=== PATIENT | female | born 1955 | race Caucasian/White ===

== ENCOUNTER 2024-09-12 14:03 | Emergency (ER) | payer MEDICARE, SELFPAY ==
[2024-09-12 14:03] VITALS: BP 194/90; PULSE 68; RESP 20; TEMP 36.4; O2SAT 99; BMI 25.8
[2024-09-12 14:05] VITALS: BP 144/51; PULSE 64; RESP 18; TEMP 36.6; O2SAT 97
--- NOTE | 2024-09-12 14:05 | EKG12_ITS ---
Test Reason : SOB/CP Blood Pressure : */* mmHG Vent. Rate : 64 BPM Atrial Rate : 64 BPM P-R Int : 132 ms QRS Dur : 64 ms QT Int : 394 ms P-R-T Axes : 92 10 48 degrees QTcB Int : 406 ms Normal sinus rhythm Normal ECG Confirmed by [place] MCGARRY, JOSE JUAN ([id number]), technical writer and editor TIFFANY BRAN ([id number]) on 09/13/2024 9:25:26 AM Referred By: Confirmed By: JOSE JUAN BE MD
[2024-09-12 14:35] LABS: Absolute Lymphocyte Count 1.99 X10^3/uL (0.83-4.51); Basophil# 0.05 X10^3/uL; Basophil% 0.8 % (0-1); Eosinophil# 0.16 X10^3/uL; Eosinophils% 2.4 % (0-5); Hematocrit 41.7 % (37-47); Hemoglobin 12.7 g/dL (12.0-15.0); Lymphocyte # 1.99 X10^3/ul (0.83-4.51); Lymphocyte % 29.9 % (19-41); Mean Corp Hgb Conc 30.5 g/dL (32-36); Mean Corpuscular Hgb 27.4 pg (27.0-32.0); Mean Corpuscular Volume 90.1 fL (81-99); Mean Platelet Vol. 9.7 fl (6.2-12.0); Monocyte# 0.44 X10^3/uL; Monocyte% 6.6 % (0-10); NRBC Flagged by Analyzer 0 % (0-5); Platelet Count 255 K/mm3 (150-450); RBC Distribution Width CV 15.7 % (11.6-14.6); RBC Distribution Width SD 51.3 fl (35.1-43.9); Red Blood Count 4.63 M/mm3 (4.2-5.4); White Blood Count 6.7 K/mm3 (4.4-11.0)
--- NOTE | 2024-09-12 14:36 | VDLE_ITS ---
Reason For Study: BLE Swelling RIGHT LEFT GSV is normal. GSV is normal. CFV is compressible, spontaneous, phasic, CFV is compressible, spontaneous, phasic, competent and demonstrates normal competent, and demonstrates normal augmentation. augmentation. FV is compressible, spontaneous, phasic, FV is compressible, spontaneous, phasic, competent and demonstrates normal competent and demonstrates normal augmentation. augmentation. POP V is compressible, spontaneous, phasic, POP V is compressible, spontaneous, phasic, competent and demonstrates normal competent and demonstrates normal augmentation. augmentation. T/P Trunk is compressible. T/P Trunk is compressible. PTV is compressible. PTV is compressible. RT PerV is compressible. LT PerV is compressible. Procedure This is a venous duplex using B-mode, color flow and spectral Doppler. Exam performed portable in ED. The exam was diagnostic. A preliminary report was called and/or faxed to [facility] ED ÁNGEL Gottlieb. VL/Venous Duplex US - Madan Extrem Interpretation Summary Deep veins of the lower extremities are bilaterally patent and compressible seg mentally. There is no evidence of deep vein thrombosis on either side. Valvular competence appears in tact within the proximal deep venous systems bilaterally. The great saphenous veins appear bila terally patent and compressible segmentally. Ordering Physician: Wilver Gilbert Referring Physician: N/A Performed By: Hiram Rice RVT
--- NOTE | 2024-09-12 14:41 | EX.ED.DYSGE1 ---
HPI History of Present Illness Chief Complaint: Shortness of Breath Informant: patient and family Narrative Narrative: Presents here with sister for evaluation worsening dyspnea wheeze nonproductive cough the past week. States fever chills and sweats myalgias. No sick contacts. History of COPD and tobacco history. Sister here visiting from [place] she came by bus 2 weeks ago. She did not have symptoms then. Been increasing leg swelling and pain bilaterally. No chest pains. No abdominal pain. No urinary symptoms. Per sister states she noticed her turning blue when she sleeps. She does snore at night. No diagnosed sleep apnea. She chronically does not sleep flat on her back. No diagnosed CHF. [facility] Medical History (Updated 09/12/24 @ 18:[address] Wilver Gilbert DO) COPD (chronic obstructive pulmonary disease) Kidney disease Home Medications ?Medication ?Instructions ?Recorded ?Last Taken ?Type albuterol sulfate 2.5 mg/3 mL 2.5 mg (3 mL) inhalation Q4H PRN 09/12/24 Unknown Rx (0.083 %) solution for nebulization #25 vials azithromycin 250 mg tablet 250 mg PO DAILY #4 TABLETS 09/12/24 Unknown Rx furosemide 40 mg tablet (Lasix) 40 mg PO DAILY #7 tabs 09/12/24 Unknown Rx prednisone 20 mg tablet 60 mg (3 x 20 mg) PO DAILY #12 09/12/24 Unknown Rx TABLETS Allergy/AdvReac Type Severity Reaction Status Date / Time No Known Allergies Allergy Verified 09/12/24 14:05 Social History Smoking Status: Current every day smoker tobacco type: cigarettes ROS ROS ED Constitutional Constitutional ED: Reports chills, fever(s) and sweats ENT ENT ED: Denies sore throat Cardiovascular Cardiovascular: Reports leg edema; Denies chest pain, palpitations or racing heartbeat Respiratory/Chest Respiratory/Chest: Reports cough and dyspnea; Denies dyspnea on exertion Gastrointestinal Gastrointestinal: Denies abdominal pain, diarrhea, nausea or vomiting Genitourinary Genitourinary ED: Denies dysuria, hematuria or urinary frequency Musculoskeletal Musculoskeletal: Denies back pain, extremity pain or neck pain Integumentary Denies rash or wounds Neurologic Neurologic: Denies headache(s), paresthesias or weakness EXAM Physical Exam Const Vital Signs: 09/12/24 14:03 09/12/24 14:05 09/12/24 14:05 Temperature 97.6 F L 98 F Temperature Source Temporal Oral Pulse Rate 68 64 Respiratory Rate 20 H 18 Respiratory Effort Respiratory Depth Respiratory Pattern Blood Pressure 194/90 H 144/51 H Blood Pressure Mean 124 82 Pulse Ox 99 97 Oxygen Delivery Method Room Air Room Air Room Air Oxygen Flow Rate (L/min) 09/12/24 14:33 09/12/24 15:05 09/12/24 16:00 Temperature 98 F 97.8 F Temperature Source Oral Oral Pulse Rate 67 67 Respiratory Rate 16 18 Respiratory Effort Short of Breath Respiratory Depth Normal Respiratory Pattern Normal Blood Pressure 144/51 H 145/61 H Blood Pressure Mean 82 89 Pulse Ox 98 93 Oxygen Delivery Method Room Air Room Air Oxygen Flow Rate (L/min) 09/12/24 17:00 09/12/24 18:00 Temperature 97.9 F 98 F Temperature Source Oral Oral Pulse Rate 78 88 Respiratory Rate 18 22 H Respiratory Effort Respiratory Depth Respiratory Pattern Blood Pressure 179/83 H 177/77 H Blood Pressure Mean 115 110 Pulse Ox 96 96 Oxygen Delivery Method Nasal Cannula Room Air Oxygen Flow Rate (L/min) 2 Positive well nourished and well developed General Appearance ED: well developed and NAD HEENT Reports moist mucous membranes normocephalic and atraumatic Eyes General Eye ED: Yes normal appearance of both eyes Neck full ROM Chest Wall Chest: Negative for tenderness Resp normal respiratory effort and normal air movement Effort and Inspection: symmetric chest movement; Negative for respiratory distress Cardio regular rate, regular rhythm and no murmurs Peripheral Pulses: pulses 2+ throughout GI normal to inspection, nondistended, normoactive bowel sounds and non-tender Palpation: Negative for guarding or rebound tenderness present Extremity normal to inspection Extremity Narrative: 2+ lower extremity pitting edema with mild calf tenderness bilaterally. General Extremety ED: Yes edema and tenderness General Extremity: edema Neuro oriented x3 and no sensory deficits noted Sensorium / Orientation: awake and alert Skin no rashes or lesions noted and no wounds MDM MDM MDM Narrative Medical decision making narrative: Interventions / MDM: Differential diagnosis: COPD exacerbation, hypoxia, CHF, peripheral edema Diagnosis considered but do not suspect: DVT however ultrasound was negative. PE however CT negative. Pneumonia however image studies negative. My EKG interpretation: Sinus rate of 64, no ST or T wave changes. Imaging independently reviewed and interpreted by myself: 1 view chest x-ray no acute process also read by radiology. CT a chest: No PE, no infiltrates. Also read by radiology. External documents reviewed: N/A Test considered but not ordered:N/A ED course: Patient elevated blood pressure on arrival no headaches no chest pains. Pulse ox 99 on room air. COPD history reported wheezing at home none currently. Symmetric breath sounds. She has lower extremity edema with pain of the calf she had recent bus ride. Laboratory test including BNP and D-dimer. EKG sinus rhythm. Ultrasound lower extremities ordered for further evaluation. 1715: Ultrasound legs negative. Labs normal hemoglobin 12.7, BNP slightly up at 342 creatinine 1.22. D-dimer about 1.1. Initial troponin negative. Repeat troponin negative. Elevated D-dimer CTA chest obtained and pending at this time. 1740: Reported by nursing little movement pulse ox dropped to 85% with good waveforms replaced on 2 L oxygen. I evaluate the patient she did report some shortness of breath during that time. She is awake and alert. She states she would like to go home. Awaiting for results of CTA of the chest at this time. Will reevaluate after CT results. No prior to CT results patient was walking on the emergency department with her soccer coach, she was brought back to the room. States she will go home. She is able to convince her to stay for results. CT results negative for PE or infiltrates. She was ambulated in room air dropped down to 86%. Improved with rest. Discussed with her hypoxia or COPD recommended admission however she declined. She is alert and oriented x 3 and capable of making decisions. Her sister was present. She was signed out AGAINST MEDICAL ADVICE. She started on Lasix for her leg swelling, prednisone and Zithromax with her COPD exacerbation. Reportedly sister has concentrator for oxygen that she will use. I discussed she changes her mind to return to the ED for evaluation and admission. All questions were answered. Re-evaluation: stable Disposition discussed with patient/family/significant other: Patient and sister Case discussed with consulting clinician: N/A This note was generated with Edvert dictation software. It may contain incorrect words, spelling, and punctuation that were not noted in checking the note before signing. Lab Data Attestation: I reviewed the patient's lab results. Labs: Laboratory Results - last 24 hr 09/12/24 09/12/24 09/12/24 14:10 14:20 14:45 WBC 6.7 RBC 4.63 Hgb 12.7 Hct 41.7 MCV 90.1 MCH 27.4 MCHC 30.5 L RDW Std Deviation 51.3 H RDW Coeff of Magno 15.7 H Plt Count 255 MPV 9.7 Immature Gran % (Auto) 0.300 Neut % (Auto) 60.0 Lymph % (Auto) 29.9 [place] % (Auto) 6.6 Eos % (Auto) 2.4 Baso % (Auto) 0.8 Absolute Neuts (auto) 4.0 Absolute Lymphs (auto) 1.99 Nucleated RBC % 0 D-Dimer Quant (PE/DVT) 1.11 H* Sodium 139 Potassium 4.7 Chloride 108 H Carbon Dioxide 29.0 Anion Gap 2 L BUN 16 Creatinine 1.22 H Estim Creat Clear Calc 43.14 Est GFR (MDRD) Af Amer 56 L Est GFR (MDRD) Non-Af 46 L BUN/Creatinine Ratio 13.1 Glucose 92 Calcium 8.9 Troponin I High Sens 14 B-Natriuretic Peptide 342.3 H 09/12/24 16:30 WBC RBC Hgb Hct MCV MCH MCHC RDW Std Deviation RDW Coeff of Magno Plt Count MPV Immature Gran % (Auto) Neut % (Auto) Lymph % (Auto) [place] % (Auto) Eos % (Auto) Baso % (Auto) Absolute Neuts (auto) Absolute Lymphs (auto) Nucleated RBC % D-Dimer Quant (PE/DVT) Sodium Potassium Chloride Carbon Dioxide Anion Gap BUN Creatinine Estim Creat Clear Calc Est GFR (MDRD) Af Amer Est GFR (MDRD) Non-Af BUN/Creatinine Ratio Glucose Calcium Troponin I High Sens 11 B-Natriuretic Peptide Radiography Diagnostic Testing: Clinical Impression(s) from Imaging Studies Chest X-Ray 09/12/24 15:15 IMPRESSION: No acute disease. Electronically Signed: Will Morris MD at 15:42 EST , Chest CTA 09/12/24 16:41 IMPRESSION: 1. Reactive mediastinal/hilar adenopathy. 2. Healing fracture of the left fifth rib anterolaterally. 3. 1 cm nonobstructing calyceal calculus at the upper pole of the right kidney. Electronically Signed: Will Morris MD at 17:55 EST , Discharge Plan Triage Chief Complaint: Shortness of Breath ED Provider: Wilver Gilbert Dx/Rx/DC Orders Clinical Impression: COPD with acute exacerbation, Hypoxia, Edema, peripheral Instructions: ED COPD Flare, ED Peripheral Edema, Bilateral Prescriptions: New albuterol sulfate 2.5 mg /3 mL (0.083 %) solution for nebulization 2.5 mg inhalation Q4H PRN Qty: 25 0RF Rx Instructions: Use q4 hours and PRN for wheezing azithromycin 250 mg tablet 250 mg PO DAILY Qty: 4 0RF prednisone 20 mg tablet 60 mg PO DAILY Qty: 12 0RF furosemide [Lasix] 40 mg tablet 40 mg PO DAILY Qty: 7 0RF Primary Care Provider: Care Physician,No Primary Referrals: Zita Hurd MD [Med Staff - Chief Security And Safety Officer] - 2 Days NOT,DEFINED [Non-Staff] - Activity Restrictions/Additional Instructions: Your CTA chest negative for blood clots or pneumonia. You have's COPD history. COVID flu RSV negative. Leg ultrasound negative for DVT. Your labs are stable. Oxygen dropped down while walking the ED, you declined admission. You are signing out AGAINST MEDICAL ADVICE. Stop smoking. Take medications as prescribed. You change your mind on admission, return to ED for reevaluation. Print Language: Eritrean Disposition Disposition: Against Medical Advice Discharge Date/Time: 09/12/24 18:26
[2024-09-12 15:05] VITALS: BP 144/51; PULSE 67; RESP 16; TEMP 36.6; O2SAT 98
[2024-09-12 15:05] LABS: Anion Gap 2 (5-15); BUN 16 mg/dL (7-18); BUN/Creat Ratio 13.1 RATIO (10-20); Calcium,Total 8.9 mg/dL (8.5-10.1); Chloride 108 mmol/L (98-107); Creatinine, Serum 1.22 mg/dL (0.55-1.02); EST Glomerular Filtration Rate 46 mL/min (>60); Est Glom Filt Rate - Afr Amer 56 mL/min (>60); Estimated Creatinine Clearance 43.14 ml/min; Glucose 92 mg/dL (74-106); Potassium 4.7 mmol/L (3.5-5.1); Sodium Level 139 mmol/L (136-145); Troponin-I HS (w/2H Reflex) 14 pg/mL (3.0-54.0)
--- NOTE | 2024-09-12 15:15 | RAD_ITS ---
EXAM: XR CHEST, 1 VIEW CLINICAL INDICATION: chest pain TECHNIQUE: Frontal view of the chest. COMPARISON: No relevant prior studies available. FINDINGS: LUNGS AND PLEURAL SPACES: Increased lung lucencies suggesting emphysema. No pneumothorax. No effusion. HEART: Unremarkable. Cardiac silhouette not enlarged. MEDIASTINUM: Central airways and mediastinal contour are unremarkable. BONES/JOINTS: Unremarkable. No acute fracture. SOFT TISSUES: Unremarkable. VASCULATURE: Atherosclerotic calcifications of the nonenlarged thoracic aortic arch. Degenerative changes of the spine. RAD/Chest 1 View (Portable) IMPRESSION: No acute disease. Electronically Signed: Will Morris MD at 15:42 EST ,
[2024-09-12 15:19] LABS: D-Dimer Quantitative (DVT/PE) 1.11 FEU/ug/m (0.27-0.49)
[2024-09-12 15:19] LABS: BNP,B-Type NATRIURETIC PEPTIDE 342.3 pg/mL (0-100)
[2024-09-12 16:00] VITALS: BP 145/61; PULSE 67; RESP 18; TEMP 36.6; O2SAT 93
[2024-09-12 16:19] LABS: Reflex Troponin-HS? (from REC) Y
--- NOTE | 2024-09-12 16:41 | CT_ITS ---
EXAM: CT ANGIOGRAPHY CHEST WITHOUT AND WITH INTRAVENOUS CONTRAST CLINICAL INDICATION: sob, elevated dimer TECHNIQUE: Helically acquired angiography images were obtained of the chest without and with intravenous contrast. CTDIvol = ( 13.34 ) mGy, DLP = ( 373.76 ) mGycm This CT exam was performed using one or more of the following dose reduction techniques: automated exposure control, adjustment of the mA and/or kV according to patient size, and/or use of iterative reconstruction technique. MIP reconstructed images were created and reviewed. CONTRAST: IV 100mL [id number] COMPARISON: No relevant prior studies available. FINDINGS: PULMONARY ARTERIES: Unremarkable. No evidence of pulmonary embolism. No PE. No aneurysm or dissection. AORTA: Unremarkable. Normal in caliber. No evidence of dissection. GREAT VESSELS OF AORTIC ARCH: Unremarkable. Normal in caliber. No evidence of dissection. LUNGS AND PLEURAL SPACES: Chronic tiny cystic lung changes at the upper lungs. Dependent atelectasis at the posterior lower lobes. No mass. No pleural effusion or thickening. No pneumothorax. No consolidation. HEART: Multivessel calcific coronary atherosclerosis. Heart size is normal. No pericardial effusion. MEDIASTINUM: Bilateral hilar and mediastinal adenopathy. Esophagus is unremarkable. No hiatal hernia. THYROID: Unremarkable. No thyroid lesions. BONES/JOINTS: Healing fracture of the left fifth rib anterolaterally. No suspicious lytic or blastic abnormality. KIDNEYS AND URETERS: 1 cm nonobstructing calyceal calculus at the upper pole of the right kidney. CT/CTA Chest W/WO Contrast IMPRESSION: 1. Reactive mediastinal/hilar adenopathy. 2. Healing fracture of the left fifth rib anterolaterally. 3. 1 cm nonobstructing calyceal calculus at the upper pole of the right kidney. Electronically Signed: Will Morris MD at 17:55 EST ,
[2024-09-12 17:00] VITALS: BP 179/83; PULSE 78; RESP 18; TEMP 36.6; O2SAT 96
[2024-09-12 17:23] LABS: Troponin-I HS 11 pg/mL (3.0-54.0)
--- NOTE | 2024-09-12 17:43 | NURSING ---
Pt 85% on RA in bed. Pt placed on 2L.
[2024-09-12 18:00] VITALS: BP 177/77; PULSE 88; RESP 22; TEMP 36.6; O2SAT 96
--- NOTE | 2024-09-12 18:01 | ED.RN ---
Pt tried leaving before dispo. Pt became SOB, this RN assisted pt back to room. Pt's sp02 was 86% while walking. Pt is refusing to be hooked back up to monitor.
[2024-09-12] MEDS: predniSONE 20 MG Tablet 60 MG PO (18:17)
[2024-09-12] MEDS: Azithromycin 250 MG Tablet 500 MG PO (18:17)
[2024-09-12] MEDS: Furosemide 40 MG Tablet PO (18:18)
== END 2024-09-12 18:26 | disposition left against medical advice (07) ==
PROVIDERS: Emergency Provider Emergency Medicine; Visit Provider Emergency Medicine
DX: J44.1 Chronic obstructive pulmonary disease with (acute) exacerbation (principal); R60.9 Edema, unspecified; F17.210 Nicotine dependence, cigarettes, uncomplicated
CPT/HCPCS: 99283; 71045; 71275; 80048; 83880; 84484; 85025; 85379; 87631; 93005; 93970; Q9967; A4216

== ENCOUNTER 2024-09-14 13:30 | Inpatient (IN) | payer MEDICARE, SELFPAY ==
[2024-09-14] VITALS (12 sets, daily range): BP systolic 107–153; BP diastolic 52–64; PULSE 56–67; RESP 15–28; TEMP 36.1–36.8; O2SAT 86–100; BMI 25.3; BMI 24.3
--- NOTE | 2024-09-14 14:00 | RAD_ITS ---
STUDY: X-RAY CHEST REASON FOR EXAM: Female, 69 years old. Cold-like symptoms. Increasing shortness of breath. TECHNIQUE: AP and lateral views of the chest. COMPARISON: Comparison is made with prior study dated September 12, 2024. FINDINGS: The lungs are clear and expanded. There is no demonstrated pleural abnormality. Normal size heart. Normal mediastinum and rosalind. Normal visualized pulmonary arteries. There is atherosclerotic calcification of the aortic arch with tortuosity. There is demineralization of the osseous structures. Increased kyphosis. Loss of height of the superior endplate of the L1 vertebrae. Normal visualized ribs, clavicles, and shoulders. There is no demonstrated abnormality of the visualized soft tissue structures of the upper abdomen. RAD/Chest PA and Lateral IMPRESSION: No acute abnormality is seen. Electronically Signed: Connor Jang MD at 14:23 EST ,
[2024-09-14 14:31] LABS: Absolute Lymphocyte Count 1.58 X10^3/uL (0.83-4.51); Basophil# 0.02 X10^3/uL; Basophil% 0.2 % (0-1); Eosinophil# 0.01 X10^3/uL; Eosinophils% 0.1 % (0-5); Hematocrit 44.4 % (37-47); Hemoglobin 13.6 g/dL (12.0-15.0); Lymphocyte # 1.58 X10^3/ul (0.83-4.51); Lymphocyte % 14.2 % (19-41); Mean Corp Hgb Conc 30.6 g/dL (32-36); Mean Corpuscular Hgb 27.4 pg (27.0-32.0); Mean Corpuscular Volume 89.3 fL (81-99); Mean Platelet Vol. 9.6 fl (6.2-12.0); Monocyte# 0.49 X10^3/uL; Monocyte% 4.4 % (0-10); NRBC Flagged by Analyzer 0 % (0-5); Neutrophil # 8.99 X10^3/uL (2.7-7.7); Neutrophil % 80.8 % (47-70); Platelet Count 286 K/mm3 (150-450); RBC Distribution Width CV 15.8 % (11.6-14.6); RBC Distribution Width SD 50.8 fl (35.1-43.9); Red Blood Count 4.97 M/mm3 (4.2-5.4); White Blood Count 11.1 K/mm3 (4.4-11.0)
--- NOTE | 2024-09-14 14:36 | EX.ED.DYSGE1 ---
HPI History of Present Illness Chief Complaint: Shortness of Breath Narrative Narrative: Patient is a 69-year-old female with past medical history chronic kidney disease, COPD, hypertension who presents to the emerged part with a chief complaint of shortness of breath that has been worsening since her last visit here. States that she recently came from [place] she is working on moving appear with to be with her sister. She states that she had a left at the last visit because she thought nothing was wrong. States that she was put on a water pill and steroids and feels that things are not helping and they are worsening therefore she came here further evaluation management. Patient states that steroids have not helped her. Patient states that her lower extremity swelling is the same and has not improved despite taking the medication as she is prescribed. [facility] Medical History COPD (chronic obstructive pulmonary disease) Kidney disease Home Medications ?Medication ?Instructions ?Recorded ?Last Taken ?Type albuterol sulfate 2.5 mg/3 mL 2.5 mg (3 mL) inhalation Q4H PRN 09/12/24 Unknown Rx (0.083 %) solution for nebulization #25 vials azithromycin 250 mg tablet 250 mg PO DAILY #4 TABLETS 09/12/24 Unknown Rx furosemide 40 mg tablet (Lasix) 40 mg PO DAILY #7 tabs 09/12/24 Unknown Rx fluticasone fur. 100 mcg-umeclid 1 inh inhalation DAILY 09/14/24 Unknown History 62.5 mcg-vilant 25 mcg inhalat.powder (Trelegy Ellipta) gabapentin 400 mg capsule 400 mg PO Q6H 09/14/24 Unknown History lisinopril 20 mg tablet 20 mg PO DAILY 09/14/24 Unknown History lorazepam 0.5 mg tablet 0.5 mg PO Q8H PRN PRN anxiety 09/14/24 Unknown History metformin 500 mg tablet 500 mg PO DAILY 09/14/24 Unknown History prednisone 20 mg tablet 60 mg PO Q8 09/14/24 Unknown History quetiapine 50 mg tablet 50 mg PO QHS 09/14/24 Unknown History ropinirole 2 mg tablet 2 mg PO QHS 09/14/24 Unknown History tramadol 50 mg tablet 50 mg PO Q8H PRN PRN pain 09/14/24 Unknown History trazodone 150 mg tablet 150 mg PO QHS 09/14/24 Unknown History Allergy/AdvReac Type Severity Reaction Status Date / Time No Known Allergies Allergy Verified 09/14/24 13:31 Social History Smoking Status: Current every day smoker tobacco type: cigarettes ROS ROS ED ROS Narrative Constitutional: Denies any fevers, chills, headaches, lightness, dizziness Eyes: Denies change in vision double vision blurry vision Cardiovascular: Complains of chest pressure denies any palpitations Respiratory: Complains of shortness of breath and coughing as noted above denies any wheezing Abdomen: Denies abdominal pain nausea vomit diarrhea : Denies any urinary symptoms Neurological: Denies any numbness, wheeze, tingling Musculoskeletal: Denies back pain Skin: Denies any rashes or lesions EXAM Physical Exam Narrative Exam Narrative: General: Patient lying in bed rest comfortably did not appear to be in acute distress Head: Atraumatic, normocephalic Eyes: PERRL bilateral, EOMI bladder, no conjunctival injection noted Neck: Soft, supple, trachea midline Cardiovascular: Regular rate and rhythm no murmurs gallops rubs noted Respiratory: Clear to auscultation bilaterally no rales rhonchi or wheezes noted patient does have diminished breath sounds bilaterally at the bases Abdomen: Soft, nondistended, nontender to palpation, bowel sounds present x 4 Extremities: Patient has 1+ pitting edema in the bilateral lower extremities, radial pulses +2/4 in the bilateral per extremities, +4/5 strength noted in the bilateral upper and lower extremities Neurological: Patient following commands knew that she was at [facility] the year is 2024 Skin: Warm, dry, intact no rashes or lesions noted Const Vital Signs: 09/14/24 13:31 09/14/24 13:32 09/14/24 13:46 Temperature 97 F L 97 F L Temperature Source Temporal Temporal Pulse Rate 62 62 Respiratory Rate 28 H 28 H Respiratory Effort Normal Non-Labored Respiratory Depth Normal Respiratory Pattern Normal Blood Pressure 149/58 H 149/58 H Blood Pressure Mean 88 88 Pulse Ox 100 97 Oxygen Delivery Method Room Air Room Air Room Air 09/14/24 14:44 09/14/24 15:30 Temperature Temperature Source Pulse Rate 61 Respiratory Rate 16 Respiratory Effort Respiratory Depth Respiratory Pattern Blood Pressure 133/62 H Blood Pressure Mean 85 Pulse Ox 86 Oxygen Delivery Method Room Air Room Air MDM MDM MDM Narrative Medical decision making narrative: Patient is a 69-year-old female who presented to the emerged part with a chief complaint of increased shortness of breath since leaving here on the of this month. On the differential diagnose includes but not limited to COPD exacerbation, pneumonia, ACS, CHF. Once workup is obtained reviewed she will be reevaluated. Patient is EKG reviewed and independently interpreted by myself which showed sinus bradycardia with a rate of 58 beats per minutes with premature atrial complexes noted While patient was resting in bed her oxygen level dropped to 86%. Patient CBC was significant for mild leukocytosis 11,000, hemoglobin 13.6, platelet count normal at 286. Patient sodium normal at 140, potassium normal at 4, creatinine was 1.47. Which is slightly elevated from her previous 1 at 1.22. Patient's troponin was normal at 10 with a delta troponin pending. Patient's proBNP mildly elevated 123 however this is improved from her previous blood draw on 09/12/2024. Patient chest x-ray reviewed by myself and by radiology showed no acute cardiopulmonary processes. Patient ambulated here in the emergency department and no was noted to be hypoxic on room air at 89%. Patient be given 3 DuoNebs and will be given 60 mg prednisone she will require admission. Discussed case with hospitalist Dr. Luna who accept patient for admission. Patient was notified she is agreeable to plan all question concerns answered bedside. Lab Data Labs: Laboratory Results - last 24 hr 09/14/24 14:20 WBC 11.1 H RBC 4.97 Hgb 13.6 Hct 44.4 MCV 89.3 MCH 27.4 MCHC 30.6 L RDW Std Deviation 50.8 H RDW Coeff of Magno 15.8 H Plt Count 286 MPV 9.6 Immature Gran % (Auto) 0.300 Neut % (Auto) 80.8 H Lymph % (Auto) 14.2 L [place] % (Auto) 4.4 Eos % (Auto) 0.1 Baso % (Auto) 0.2 Absolute Neuts (auto) 9.0 H Absolute Lymphs (auto) 1.58 Nucleated RBC % 0 Sodium 140 Potassium 4.0 Chloride 99 Carbon Dioxide 32.0 Anion Gap 9 BUN 26 H Creatinine 1.47 H Estim Creat Clear Calc 35.50 Est GFR (MDRD) Af Amer 45 L Est GFR (MDRD) Non-Af 37 L BUN/Creatinine Ratio 17.7 Glucose 109 H Calcium 9.0 Troponin I High Sens 10 B-Natriuretic Peptide 123.7 H Radiography Diagnostic Testing: Clinical Impression(s) from Imaging Studies Chest X-Ray 09/14/24 14:00 IMPRESSION: No acute abnormality is seen. Electronically Signed: Connor Jang MD at 14:23 EST , Discharge Plan Triage Chief Complaint: Shortness of Breath ED Provider: Melquiades Macdonald Dx/Rx/DC Orders Clinical Impression: COPD with acute exacerbation, Acute hypoxic respiratory failure, Respiratory syncytial virus (RSV) Prescriptions: No Action albuterol sulfate 2.5 mg /3 mL (0.083 %) solution for nebulization 2.5 mg inhalation Q4H PRN Qty: 25 0RF Rx Instructions: Use q4 hours and PRN for wheezing azithromycin 250 mg tablet 250 mg PO DAILY Qty: 4 0RF furosemide [Lasix] 40 mg tablet 40 mg PO DAILY Qty: 7 0RF lorazepam 0.5 mg tablet 0.5 mg PO Q8H PRN PRN (Reason: anxiety) Trelegy Ellipta 100-62.5-25 mcg blister with device 1 inh inhalation DAILY gabapentin 400 mg capsule 400 mg PO Q6H metformin 500 mg tablet 500 mg PO DAILY lisinopril 20 mg tablet 20 mg PO DAILY tramadol 50 mg tablet 50 mg PO Q8H PRN PRN (Reason: pain) ropinirole 2 mg tablet 2 mg PO QHS trazodone 150 mg tablet 150 mg PO QHS quetiapine 50 mg tablet 50 mg PO QHS prednisone 20 mg tablet 60 mg PO Q8 Primary Care Provider: Care Physician,No Primary Referrals: Care Physician,No Primary [Primary Care Provider] - Print Language: Armenian Disposition Disposition: Acute Care [facility]
[2024-09-14 15:25] LABS: BNP,B-Type NATRIURETIC PEPTIDE 123.7 pg/mL (0-100)
[2024-09-14 15:36] LABS: Anion Gap 9 (5-15); BUN 26 mg/dL (7-18); BUN/Creat Ratio 17.7 RATIO (10-20); Chloride 99 mmol/L (98-107); Creatinine, Serum 1.47 mg/dL (0.55-1.02); EST Glomerular Filtration Rate 37 mL/min (>60); Est Glom Filt Rate - Afr Amer 45 mL/min (>60); Glucose 109 mg/dL (74-106); Sodium Level 140 mmol/L (136-145); Troponin-I HS (w/2H Reflex) 10 pg/mL (3.0-54.0)
[2024-09-14 16:24] LABS: Reflex Troponin-HS? (from REC) Y
--- NOTE | 2024-09-14 16:42 | HP.PCM.HOS_ITS ---
HPI - General General Date of Admission: 09/14/24 Date of Service: 09/14/24 Chief Complaint: Shortness of breath HPI Narrative CLEMENTINA HOOD, is a 69 F who presented to the emergency department [facility] [place] on 09/14/2023 with a chief complaint of shortness of breath. Patient has a history of tobacco abuse and still smokes about half a pack of cigarettes a day. She has known COPD and reported that she recently came back from [place] and is moving in with her sister. She states about a week ago she started having fever and chills, myalgias, upper respiratory symptoms and a nonproductive cough. Slowly, with time, she has become more short of breath which prompted evaluation today. As an outpatient was she was placed on some diuretics and steroids but did not feel like she was improving. She reports that she has been fairly wheezy without any improvement by taking albuterol. Vital signs on presentation showed a temperature of 97, blood pressure was 149/58, heart rate was 62, respiratory rate was initially 28 and sats were initially 100% on room air however in the emergency department she dropped to 86% on room air and was placed on nasal cannula at 2 L with improvement to her sats from 97 to 99%. CBC shows a mild leukocytosis with a white count of 11.1 and a left shift with an 80.8% neutrophilia however the patient has been on steroids orally. BMP shows normal electrolytes with a BUN of 26 and a serum creatinine 1.47 (baseline creatinine based on 1 previous data point from 2 days ago was 1.22.) initial troponin was 10 with a repeat of 10. BNP was 123.7. EKG was sinus rhythm without ST-T wave changes consistent with ischemia and intervals were normal. Chest x-ray shows flattened diaphragms with underpenetration and consistent with COPD. She did have a CTA of the chest on the when she came to the emergency department and was discharged home at which time imaging was negative for PE however she was noted to have pretty significant upper lobe emphysematous changes. In the emergency department she was treated with aerosols and prednisone and request for admission was made. [facility] Medical History Kidney disease Bipolar disorder Anxiety Depression Osteoporosis Smoker Chest pain Hypertension Migraines COPD (chronic obstructive pulmonary disease) Kidney disease Home Medications ?Medication ?Instructions ?Recorded ?Last Taken ?Type albuterol sulfate 2.5 mg/3 mL 2.5 mg (3 mL) inhalation Q4H PRN 09/12/24 Unknown Rx (0.083 %) solution for nebulization #25 vials azithromycin 250 mg tablet 250 mg PO DAILY #4 TABLETS 09/12/24 Unknown Rx furosemide 40 mg tablet (Lasix) 40 mg PO DAILY #7 tabs 09/12/24 Unknown Rx fluticasone fur. 100 mcg-umeclid 1 inh inhalation DAILY 09/14/24 Unknown History 62.5 mcg-vilant 25 mcg inhalat.powder (Trelegy Ellipta) gabapentin 400 mg capsule 400 mg PO Q6H 09/14/24 Unknown History lisinopril 20 mg tablet 20 mg PO DAILY 09/14/24 Unknown History lorazepam 0.5 mg tablet 0.5 mg PO Q8H PRN PRN anxiety 09/14/24 Unknown History metformin 500 mg tablet 500 mg PO DAILY 09/14/24 Unknown History prednisone 20 mg tablet 60 mg PO Q8 09/14/24 Unknown History quetiapine 50 mg tablet 50 mg PO QHS 09/14/24 Unknown History ropinirole 2 mg tablet 2 mg PO QHS 09/14/24 Unknown History tramadol 50 mg tablet 50 mg PO Q8H PRN PRN pain 09/14/24 Unknown History trazodone 150 mg tablet 150 mg PO QHS 09/14/24 Unknown History Allergy/AdvReac Type Severity Reaction Status Date / Time No Known Allergies Allergy Verified 09/14/24 13:31 Surgical History History of appendectomy Social History household members: family housing: house Smoking Status: Current every day smoker tobacco type: cigarettes alcohol intake: never substance use type: does not use ROS Constitutional Constitutional: Reports chills, fatigue, fever(s), malaise and weakness; Denies anorexia, change in weight, night sweats or other Eyes Eyes: Denies blurry vision, change in eye color, change in vision, discharge from eye(s), double vision, erythema, eye pain, loss of vision or other ENT HEENT: Denies abnormal hearing, dysphagia, ear pain, epistaxis, headache(s), hearing loss, nasal congestion, nasal discharge, post nasal drip, sinus pressure, sore throat or other Cardiovascular Cardiovascular: Reports dyspnea on exertion; Denies chest pain, claudication, edema, lightheadedness, orthopnea, palpitations, paroxysmal nocturnal dyspnea, rapid heart rate, syncope or other Respiratory/Chest Respiratory/Chest: Reports cough, shortness of breath at rest, shortness of breath with exertion and wheezing Gastrointestinal Gastrointestinal: Denies abdominal pain, coffee ground emesis, constipation, diarrhea, dyspepsia, hematemesis, hematochezia, loose stools, melena, nausea, vomiting or other Genitourinary Genitourinary: Denies burning urination, difficulty urinating, dysuria, hematuria, nocturia, urinary frequency, urinary hesitancy, urinary incontinence, urinary urgency or other Musculoskeletal Musculoskeletal: Denies arthralgias, back pain, joint pain, joint stiffness, joint swelling, myalgias, neck pain or other Neurologic Neurologic: Denies abnormal gait, abnormal speech, confusion, disequilibrium, dizziness, focal weakness, headache(s), numbness, paresthesias, seizure-like activity, seizures, syncope, tingling, tremor(s) or other Psychiatric Psychiatric: Denies anxiety, depression, homicidal ideation, suicidal ideation or other Endocrine Endocrinology: Denies change in body appearance, cold intolerance, excessive sweating, heat intolerance, polydipsia, polyuria or other Hematologic/Lymphatic Hematologic/Lymphatic: Denies anemia, easy bleeding, easy bruising, lymphadenopathy or other Allergic/Immunologic Allergic/Immunologic: Denies rhinitis, hives, eczemia, asthma or other Vital Signs Vital Signs Vital Signs: 09/14/24 13:31 09/14/24 13:32 09/14/24 13:46 Temperature 97 F L 97 F L Temperature Source Temporal Temporal Pulse Rate 62 62 Respiratory Rate 28 H 28 H Respiratory Effort Normal Non-Labored Respiratory Depth Normal Respiratory Pattern Normal Blood Pressure 149/58 H 149/58 H Blood Pressure Mean 88 88 Pulse Ox 100 97 Oxygen Delivery Method Room Air Room Air Room Air 09/14/24 14:44 09/14/24 15:30 Temperature Temperature Source Pulse Rate 61 Respiratory Rate 16 Respiratory Effort Respiratory Depth Respiratory Pattern Blood Pressure 133/62 H Blood Pressure Mean 85 Pulse Ox 86 Oxygen Delivery Method Room Air Room Air Weight Weight: 71.2 kg Body Mass Index (BMI) 25.3 Physical Exam Const alert, oriented x3 and no apparent distress; Negative for healthy appearing Constitutional Narrative: Older, white female, lying in bed resting comfortably, awakens to name, stable on 2 L nasal cannula, appears comfortable, nontoxic, appears a bit older than stated age send code General Appearance: cooperative HEENT normocephalic, head/scalp atraumatic, hearing grossly normal bilaterally and moist oral mucous membranes HEENT Narrative: Dentures in place, Mallampati 2, no thrush Eyes conjunctivae normal Eyes Narrative: No scleral icterus Neck supple Neck Narrative: Trachea midline Resp normal respiratory effort, no retractions, no use of accessory muscles and No clear to auscultation bilaterally Resp Narrative: Diffusely diminished with scattered diffuse inspiratory and end expiratory wheezes, very coarse Auscultation: wheezes; Negative for rales or rhonchi Cardio regular rate, regular rhythm, S1 normal heart sound, S2 normal heart sound, no murmurs, no rub, no gallops and no clicks GI normal to inspection, nondistended, normoactive bowel sounds, soft to palpation and non-tender Extremity no clubbing, cyanosis or edema Extremity Narrative: 1+ pitting edema bilateral lower extremities Neuro oriented x3, moves all extremities and no focal motor deficits Speech: speech normal Psych affect normal Psych Narrative: Very pleasant, interacts appropriately, eye contact is good Results Lab / Micro Data 09/14/24 14:20 09/14/24 14:20 Labs: Laboratory Results - last 24 hr 09/14/24 14:20: WBC 11.1 H, RBC 4.97, Hgb 13.6, Hct 44.4, MCV 89.3, MCH 27.4, M CHC 30.6 L, RDW Std Deviation 50.8 H, RDW Coeff of Magno 15.8 H, Plt Count 286, MPV 9.6, Immature Gran % (Auto) 0.300, Neut % (Auto) 80.8 H, Lymph % (Auto) 14.2 L, [place] % (Auto) 4.4, Eos % (Auto) 0.1, Baso % (Auto) 0.2, Absolute Neuts (auto) 9.0 H, Absolute Lymphs (auto) 1.58, Nucleated RBC % 0, Sodium 140, Potassium 4.0, Chloride 99, Carbon Dioxide 32.0, Anion Gap 9, BUN 26 H, Creatinine 1.47 H, Estim Creat Clear Calc 35.50, Est GFR (MDRD) Af Amer 45 L, Est GFR (MDRD) Non-Af 37 L, BUN/Creatinine Ratio 17.7, Glucose 109 H, Calcium 9.0, Troponin I High Sens 10, B-Natriuretic Peptide 123.7 H Micro: Microbiology 09/14/24 14:20 Mucosa - Nose SARS-CoV-2, Influenza & RSV (PCR) - Final RSV Imaging Radiology Impression Chest X-Ray 09/14/24 14:00 IMPRESSION: No acute abnormality is seen. Electronically Signed: Connor Jang MD at 14:23 EST , Assessment & Plan Assessment/Plan (1) Respiratory syncytial virus (RSV): (2) COPD with acute exacerbation: (3) Hypoxia: (4) Edema, peripheral: (5) Leukocytosis: PLAN: Plan Acute hypoxia secondary to acute exacerbation of COPD from respiratory syncytial virus infection -Patient is not dependent at baseline and currently requiring 2 L nasal cannula -Continue home azithromycin -Scheduled DuoNebs and as needed albuterol -Steroids 40 every 8 -Mucinex 1200 twice daily -I-S -Acapella as ordered -CT of the chest does show significant upper lobe emphysematous changes -Check ambulatory pulse ox prior to discharge Bilateral lower extremity edema -BNP is slightly elevated -will continue home Lasix -Check bilateral lower extremity Dopplers to assess for DVT -Check echocardiogram as patient may have some pulmonary hypertension with her longstanding COPD Leukocytosis -Patient has been on steroids as an outpatient suspect this is demargination -Will check sputum if patient can produce however currently she has a dry nonproductive cough -Will monitor but expect further elevation with ongoing steroid use COPD -Follows with Dr. Angeles Swift as an outpatient -Restart home inhalers after discharge -Recommend tobacco cessation DM-2 -Hold home metformin -SSI with Accu-Cheks and carb controlled diet -Expect rise with steroids Restless leg syndrome -Continue home ropinirole Essential hypertension -Continue home lisinopril CKD stage IIIb -Serum creatinine slightly higher than our only other data point at 1.21 previously and 1.47 today -Will continue to give home diuretics -Monitor clinically with repeat BMP in a.m. Diabetic neuropathy -Home dose is 400 every 6 -Estimated creatinine clearance is 35.5 -Max dose for this creatinine clearance is 700 mg p.o. twice daily with the cutoff for the next dose reduction being 30 mL/min so we will decrease dose of gabapentin to 300 mg 4 times daily with a total dose of 1200 mg in a 24-hour period Anxiety/depression -Continue home Seroquel -Continue home lorazepam DVT prophylaxis -Subcu Lovenox daily CODE STATUS -Full code as per discussion at the time of admission Charges/Coding Visit Charges Inpatient E&M: 93743 Init Hosp L2
[2024-09-14] MEDS: predniSONE 20 MG Tablet 60 MG PO (16:49)
[2024-09-14] MEDS: Ipratropium/Albuterol Sulfate 3 ML AMPUL.NEB INHALATION ×4 (17:00→23:35)
[2024-09-14 17:19] LABS: Troponin-I HS 10 pg/mL (3.0-54.0)
[2024-09-14] MEDS: Acetaminophen 325 MG Tablet 650 MG PO (18:34)
[2024-09-14] MEDS: Gabapentin 400 MG Capsule PO (18:34)
--- NOTE | 2024-09-14 20:25 | ECHOD_ITS ---
Reason For Study: EDEMA Procedure This was a 2D Doppler, Color Flow transthoracic echocardiogram. Exam performed portable in patient room. Left Ventricle Normal LV size. Mild concentric left ventricular hypertrophy. Hyperdynamic left ventricle. Estimated LVEF 75%. Stage 1 diastolic dysfunction. Right Ventricle Normal right ventricle. Atria There is moderate biatrial dilatation. Mitral Valve Mild (1+) mitral valve insufficiency. Tricuspid Valve Mild tricuspid valve insufficiency. Right ventricular systolic pressure estimated to be 51 mmHg. Aortic Valve Trisinus/trileaflet aortic valve. Pulmonic Valve The pulmonic valve is not well visualized. Great Vessels Normal sized aortic root. Pericardium/Pleural No pericardial effusion. MMode/2D Measurements & Calculations LVIDd: 4.4 cm IVSd: 1.2 cm LVOT diam: 1.8 cm LVIDs: 2.2 cm LVPWd: 1.1 cm LVOT area: 2.5 cm2 RVDd: 3.2 cm FS: 50.1 % LA dimension: 4.5 cm asc Aorta Diam: 3.0 cm LAV(MOD-bp): 45.2 ml LAV(MOD-bp) Indexed: 25.5 ml/m2 LAV(MOD-sp2): 52.2 ml LAV(MOD-sp4): 35.8 ml SV(MOD-sp4): 28.4 ml LVAd ap4: 17.6 cm2 LVAd ap2: 20.7 cm2 LVLd ap4: 6.6 cm LVLd ap2: 6.9 cm SI(MOD-sp4): 16.0 ml/m2 EDV(MOD-sp4): 38.8 ml EDV(MOD-sp2): 50.5 ml EDV(sp4-el): 39.8 ml EDV(sp2-el): 52.2 ml LVAs ap4: 8.2 cm2 LVAs ap2: 9.0 cm2 LVLs ap4: 5.6 cm LVLs ap2: 5.7 cm ESV(MOD-sp4): 10.4 ml ESV(MOD-sp2): 12.1 ml ESV(sp4-el): 10.3 ml ESV(sp2-el): 12.1 ml EF(MOD-sp4): 73.2 % EF(MOD-sp2): 76.0 % EF(sp4-el): 74.1 % SV(MOD-sp2): 38.4 ml SV(sp4-el): 29.5 ml Ao sinus diam: 2.8 cm SI(MOD-sp2): 21.6 ml/m2 Ao ST Junction: 2.3 cm LA dimension(2D): 3.9 cm LA A4 area: 15.1 cm2 TAPSE: 1.9 cm RA A4 area: 12.9 cm2 Time Measurements MV dec time: 0.28 sec Doppler Measurements & Calculations MV E max colt: 108.1 cm/sec Lat Peak E' Colt: 8.1 cm/sec Med Peak E' Colt: 7.7 cm/sec MV A max colt: 117.3 cm/sec E/E' lat: 13.4 E/E' med: 14.0 MV E/A: 0.92 MV dec slope: 386.2 cm/sec2 Ao V2 max: 185.2 cm/sec LV V1 max: 186.5 cm/sec Ao max P.7 mmHg LV V1 max P.9 mmHg Ao V2 mean: 122.5 cm/sec LV V1 mean P.6 mmHg Ao mean P.8 mmHg LV V1 mean: 132.4 cm/sec Ao V2 VTI: 39.9 cm LV V1 VTI: 39.7 cm AV (velocity ratio): 1.00 MEREDITH(I,D): 2.4 cm2 MEREDITH(V,D): 2.5 cm2 SV(LVOT): 97.3 ml PA V2 max: 118.0 cm/sec TR max colt: 301.9 cm/sec TR max P.5 mmHg ECHO/Echo Complete Interpretation Summary Hyperdynamic left ventricle. Estimated LVEF 75%. Mild concentric left ventricular hypertrophy. Stage 1 diastolic dysfunction. There is moderate biatrial dilatation. Mild (1+) mitral valve insufficiency. Mild tricuspid valve insufficiency. Right ventricular systolic pressure estimated to be 51 mmHg. Ordering Physician: Gladis Luna Referring Physician: Melquiades Macdonald Performed By: Tamara Houser RDCS
--- NOTE | 2024-09-14 20:38 | VDLE_ITS ---
Reason For Study: BLE Swelling RIGHT LEFT GSV is normal. GSV is normal. CFV is compressible, spontaneous, phasic, CFV is compressible, spontaneous, phasic, competent and demonstrates normal competent, and demonstrates normal augmentation. augmentation. FV is compressible, spontaneous, phasic, FV is compressible, spontaneous, phasic, competent and demonstrates normal competent and demonstrates normal augmentation. augmentation. POP V is compressible, spontaneous, phasic, POP V is compressible, spontaneous, phasic, competent and demonstrates normal competent and demonstrates normal augmentation. augmentation. T/P Trunk is compressible. T/P Trunk is compressible. PTV is compressible. PTV is compressible. RT PerV is compressible. LT PerV is compressible. Procedure This is a venous duplex using B-mode, color flow and spectral Doppler. Exam performed portable in patient room. The exam was diagnostic. A preliminary report was called and/or faxed to M/S 3 focus puller. VL/Venous Duplex US - Madan Extrem Interpretation Summary Deep veins of the lower extremities are bilaterally patent and compressible seg mentally. There is no evidence of deep vein thrombosis on either side. Valvular competence appears in tact within the proximal deep venous systems bilaterally. The great saphenous veins appear bila terally patent and compressible segmentally. Ordering Physician: Gladis Luna Referring Physician: N/A Performed By: Hiram Rice, RVT
[2024-09-14] MEDS: guaiFENesin 1,200 MG Tablet 1200 MG PO (20:55)
[2024-09-14] MEDS: traZODone 50 MG Tablet 150 MG PO (20:55)
[2024-09-14] MEDS: QUEtiapine 25 MG Tablet 50 MG PO (20:55)
[2024-09-14] MEDS: Pramipexole Di-HCl 1 MG Tablet PO (20:55)
[2024-09-14] MEDS: Insulin Lispro 100 UNIT/ML INSULN.PEN SC (21:04)
[2024-09-14 21:26] LABS: Bedside Glucose 256 mg/dL (74-106)
[2024-09-15] VITALS (14 sets, daily range): BP systolic 126–142; BP diastolic 57–71; PULSE 53–84; RESP 16–22; TEMP 36.3–36.9; O2SAT 92–97; BMI 24.3
[2024-09-15] MEDS: Acetaminophen 325 MG Tablet 650 MG PO (05:24)
[2024-09-15] MEDS: BENZOCAINE/MENTHOL 1 LOZENGE MUCOUS MEM (05:28)
[2024-09-15] MEDS: Insulin Lispro 100 UNIT/ML INSULN.PEN SC (06:43)
[2024-09-15 06:45] LABS: Absolute Lymphocyte Count 0.54 X10^3/uL (0.83-4.51); Absolute Neutrophil Count 5.8 X10^3/uL (2.0-7.7); Hematocrit 42.4 % (37-47); Hemoglobin 13.2 g/dL (12.0-15.0); Lymphocyte # 0.54 X10^3/ul (0.83-4.51); Lymphocyte % 8.4 % (19-41); Mean Corp Hgb Conc 31.1 g/dL (32-36); Mean Corpuscular Hgb 27.6 pg (27.0-32.0); Mean Corpuscular Volume 88.7 fL (81-99); Mean Platelet Vol. 9.6 fl (6.2-12.0); Monocyte# 0.08 X10^3/uL; Monocyte% 1.3 % (0-10); NRBC Flagged by Analyzer 0 % (0-5); Neutrophil # 5.75 X10^3/uL (2.7-7.7); Neutrophil % 89.8 % (47-70); POSITIVE DIFFERENTIAL YES; Platelet Count 257 K/mm3 (150-450); RBC Distribution Width CV 15.7 % (11.6-14.6); Red Blood Count 4.78 M/mm3 (4.2-5.4); White Blood Count 6.4 K/mm3 (4.4-11.0)
[2024-09-15 07:02] LABS: Bedside Glucose 191 mg/dL (74-106)
[2024-09-15 07:27] LABS: ALB/GLOB Ratio 0.8 RATIO (0.9-2.4); AST(SGOT) 13 U/L (15-37); Alanine Aminotransfer ALT/SGPT 10 U/L (13-56); Albumin, Serum 3.1 g/dL (3.2-5.0); Alkaline Phosphatase 90 U/L (45-117); Anion Gap 8 (5-15); BUN 27 mg/dL (7-18); BUN/Creat Ratio 20.8 RATIO (10-20); Calcium,Total 8.6 mg/dL (8.5-10.1); Chloride 102 mmol/L (98-107); EST Glomerular Filtration Rate 43 mL/min (>60); Est Glom Filt Rate - Afr Amer 52 mL/min (>60); Estimated Creatinine Clearance 37.16 ml/min; Globulin 3.8 g/dL (2.2-4.2); Glucose 161 mg/dL (74-106); Magnesium 2.2 mg/dL (1.6-2.6); Phosphorus 3.7 mg/dL (2.5-4.9); Potassium 3.9 mmol/L (3.5-5.1); Protein, Total 6.9 g/dL (6.4-8.2); Sodium Level 139 mmol/L (136-145); Thyroid Stim Hormone (TSH) 0.122 uIU/mL (0.358-3.740)
[2024-09-15] MEDS: Enoxaparin 40 MG/0.4 ML Syringe SC (09:15)
[2024-09-15] MEDS: guaiFENesin 1,200 MG Tablet 1200 MG PO ×2 (09:15→21:42)
[2024-09-15] MEDS: Furosemide 40 MG Tablet PO (09:15)
[2024-09-15] MEDS: Gabapentin 300 MG Capsule PO ×4 (09:16→21:42)
[2024-09-15] MEDS: Azithromycin 250 MG Tablet PO (09:16)
[2024-09-15] MEDS: Lisinopril 20 MG Tablet PO (09:16)
[2024-09-15] MEDS: Ipratropium/Albuterol Sulfate 3 ML AMPUL.NEB INHALATION ×4 (10:06→23:09)
[2024-09-15] MEDS: Acetaminophen/Butalbital/Caffe 1 Tablet 2 TABLET PO (10:29)
[2024-09-15 11:44] LABS: Bedside Glucose 140 mg/dL (74-106)
--- NOTE | 2024-09-15 15:00 | CASEMGMT ---
ÁNGEL SHAVER Assessment: Face to Face with pt for initial transition planning/care coordination assessment. ÁNGEL SHAVER introduced self and role at [facility], pt voices understanding and consents to assessment. Pt is A&O x4 and answers all questions appropriately at this time. Pt lying in bed with oxygen on in no distress. Care providers, pharmacy, and demographics verified/updated. Admitting Dx: ae copd 2/2 RSV Strata Score: 2 PCP:None, provided pt with a local healthcare directory. Pt to review with her sister and pt aware ÁNGEL SHAVER can assist with setting up a PCP. Specialists:[facility] in [place] Preferred Pharmacy: [facility] [place] Insurance: [employer] Prescription Benefit: yes LNOK: Marian Gonzales, sister Living Arrangements: Pt had lived in [place]. Pt now is staying at [facility] in [place] since arriving. Pt does not have any steps. Pt reports being I in ADLs, states she needs help with laundry and gets groceries delivered. Transportation: Pt has a license but no car. Pt niece and nephew assist with transportation. DME:[facility] HHC/SNF: Denies HHC, pt has been to SNF in [place]. Pt arrived to [place] by [employer] bus. Pt states the plan was to come to [place] and her and her sister were going to find a home to rent and live together. Pt states this plan became complicated. Pt did not want to elaborate more on this. She stated it was due to family dynamics and that her sister lives with her (sister's) dtr. The plan is still to rent a home and have her sister move in with her. Pt states she is financially ok and receives about $3400/month. Pt passed in January. Pt plans to stay at [facility] for the rest of this month. Pt aware that SW will follow up with her. Updated SW. Pt states no further concerns/needs. CM to follow. Advised pt to ask CM if any further questions/concerns/needs arise, voices understanding. Pt Goal: Back to [place] Plan: TBD, follow therapy, oxygen, set up PCP Abdirizak NEAL CM
--- NOTE | 2024-09-15 15:06 | CHAPLAIN ---
Type of Pastoral Visit _x__ Initial Visit ___ Follow-up Visit ___ On-call Visit ___ General Patient Visit ___ Spiritual Assessment ___ Family Conference ___ Bereavement ___ Rapid Response ___ Code Blue ___ Other (describe below) Pastoral Care Referral From _x__ Patient ___ Family ___ Nurse ___ Physician ___ Die Drawing Checker ___ Violin Mechanic ___ Other (describe below) Sacrament/Intervention _x__ Active listening ___ Anointing ___ Latter Day ___ Bereavement ___ Communion ___ Mila exploration ___ ___ Life review _x__ Prayer ___ Reconciliation ___ Sacrament of Sick _x__ Supportive presence ___ Wedding ___ Other (describe below) Pastoral Comments patient admits that she is not feeling well but more concerned that she is not informed about her health status and had a conversation with a doctor; pt says that is her priority right now, to get answers; pt says that a prayer would be fine for this time
[2024-09-15 16:21] LABS: Bedside Glucose 137 mg/dL (74-106)
[2024-09-15] MEDS: HYDROcodone Bitartrate/Apap 5/325 Tablet PO (17:50)
--- NOTE | 2024-09-15 18:23 | CASEMGMT ---
Social Work- SW met with pt to conduct SDOH; SW introduced self and role. Pt reports that she moved here to be with her sister, who lives with sister's daughter, but now is residing with pt in a hotel. Pt reports that her spouse in January and his VA disability was the main source of income. Pt reports that she had 3 months of rent, then fell behind on bills resulting in her care being repossessed and losing her home. Pt reports that she has been looking for housing, but has been unable to secure an apartment. Pt reports that she does now receive spousal VA benefits and has $3400/month income. Pt reports nephew transports pt as needed. Pt reports that she is unable to have groceries delivered to a hotel so in spite of getting food stamps, she is worried about food, as she has no more money to spend on take-out. SW provided resources: [employer], food pantries/meals, transportation, and apartment list. SW remains available to follow for additional discharge needs. GLENIS Perry
--- NOTE | 2024-09-15 19:11 | PCM.PN.HOSP ---
Reason for Visit Reason for Visit: Diagnoses Other specified viral diseases (09/14/24) Elevated white blood cell count, unspecified (09/14/24) Chronic obstructive pulmonary disease with (acute) exacerbation (09/14/24) Hypoxemia (09/14/24) Localized edema (09/14/24) Subjective Subjective Patient was seen and examined today, she appeared nervous and asked why she was in the hospital, I explained to her that she had an RSV infection and she was hypoxic. Patient recently moved from [place], she has relatives in the area. Patient states that she has a diagnosis of COPD but has never had home oxygen. Echocardiogram today showed mild pulmonary hypertension and a normal EF, no significant valvular heart disease was noted. Objective Data Objective Data Vital Signs: Vital Signs Temp Pulse Resp BP Pulse Ox O2 Del Method O2 Flow Rate 98.4 F 78 22 H 133/60 H 96 Nasal Cannula 2 09/15/24 17:39 09/15/24 17:39 09/15/24 17:39 09/15/24 17:39 09/15/24 17:39 09/15/24 17:39 09/15/24 17:39 Oxygen Flow Rate (L/min) 2 Oxygen Delivery Method Nasal Cannula Weight: 68.49 kg Body Mass Index (BMI) 24.3 Intake & Output: Intake and Output for Last 24 Hours 09/13/24 09/14/24 09/15/24 23:59 23:59 23:59 Intake Total 830 / 830 Balance 830 / 830 Lab / Micro Data 09/15/24 06:18 09/15/24 06:18 Labs: Laboratory Results - last 24 hr 09/14/24 20:54: POC Glucose 256 H 09/15/24 06:18: WBC 6.4, RBC 4.78, Hgb 13.2, Hct 42.4, MCV 88.7, MCH 27.6, MCHC 31.1 L, RDW Std Deviation 51.0 H, RDW Coeff of Magno 15.7 H, Plt Count 257, MPV 9.6, Immature Gran % (Auto) 0.500, Neut % (Auto) 89.8 H, Lymph % (Auto) 8.4 L, Stephens % (Auto) 1.3, Eos % (Auto) 0.0, Baso % (Auto) 0.0, Absolute Neuts (auto) 5.8, Absolute Lymphs (auto) 0.54 L, Nucleated RBC % 0, Sodium 139, Potassium 3.9, Chloride 102, Carbon Dioxide 29.0, Anion Gap 8, BUN 27 H, Creatinine 1.30 H, Estim Creat Clear Calc 37.16, Est GFR (MDRD) Af Amer 52 L, Est GFR (MDRD) Non-Af 43 L, BUN/Creatinine Ratio 20.8 H, Glucose 161 H, Calcium 8.6, Phosphorus 3.7, Magnesium 2.2, Total Bilirubin 0.30, AST 13 L, ALT 10 L, Alkaline Phosphatase 90, Total Protein 6.9, Albumin 3.1 L, Globulin 3.8, Albumin/Globulin Ratio 0.8 L, TSH 0.122 L 09/15/24 06:42: POC Glucose 191 H 09/15/24 11:24: POC Glucose 140 H 09/15/24 16:02: POC Glucose 137 H Micro: Microbiology 09/14/24 14:20 Mucosa - Nose SARS-CoV-2, Influenza & RSV (PCR) - Final RSV Radiography Diagnostic Testing: Radiology Impression Echocardiogram 09/14/24 20:25 Interpretation Summary Hyperdynamic left ventricle. Estimated LVEF 75%. Mild concentric left ventricular hypertrophy. Stage 1 diastolic dysfunction. There is moderate biatrial dilatation. Mild (1+) mitral valve insufficiency. Mild tricuspid valve insufficiency. Right ventricular systolic pressure estimated to be 51 mmHg. Ordering Physician: Gladis Luna Referring Physician: Melquiades Macdonald Performed By: Tamara Houser RDCS Social Homelessness:: Sheltered Physical Exam Const alert, oriented x3, no apparent distress and healthy appearing General Appearance: cooperative, well kempt and well developed Orientation / Consciousness: awake, oriented to person, oriented to place and oriented to time HEENT normocephalic, head/scalp atraumatic and moist oral mucous membranes Eyes PERRL, EOMs intact bilaterally and conjunctivae normal Neck supple, no JVD, thyroid normal and no carotid bruits General: trachea midline Resp normal respiratory effort, no retractions, no use of accessory muscles and clear to auscultation bilaterally Resp Narrative: Breath sounds are diminished bilaterally Auscultation: Negative for rales, rhonchi or wheezes Cardio regular rate, regular rhythm, no murmurs, no rub and no gallops GI normal to inspection, nondistended, normoactive bowel sounds, soft to palpation, non-tender and non-distended Extremity no clubbing, cyanosis or edema Skin no rashes or lesions noted General Skin Exam: no breakdown Neuro oriented x3, CN's II-XII intact bilaterally, no focal motor deficits and no sensory deficits noted Sensorium / Orientation: awake and alert Speech: speech normal Psych affect normal Assessment & Plan Assessment/Plan (1) Respiratory syncytial virus (RSV): PLAN: Plan 1. Respiratory syncytial virus infection-patient will remain on IV corticosteroids and aerosol treatments #2 hypoxia secondary to #1-pulse ox will be monitored oxygen will be weaned if able #3 chronic obstructive pulmonary disease-complicates care, management, recovery, and prognosis #4 essential hypertension-patient is on lisinopril Total clinical time spent by myself addressing the patient's medical issues, reviewing all of her data, and collaborating with patient's care team: 35 minutes Charges/Coding Visit Charges Inpatient E&M: 06855 Subs Hosp L2
[2024-09-15] MEDS: traZODone 50 MG Tablet 150 MG PO (21:42)
[2024-09-15] MEDS: QUEtiapine 25 MG Tablet 50 MG PO (21:42)
[2024-09-15] MEDS: Pramipexole Di-HCl 1 MG Tablet PO (21:42)
[2024-09-15] MEDS: Temazepam 15 MG Capsule 30 MG PO (21:48)
[2024-09-15 23:06] LABS: Bedside Glucose 142 mg/dL (74-106)
[2024-09-16] VITALS (11 sets, daily range): BP systolic 144–164; BP diastolic 61–89; PULSE 56–98; RESP 16–24; TEMP 36.6–37.1; O2SAT 56–100; BMI 24.3
[2024-09-16] MEDS: Ipratropium/Albuterol Sulfate 3 ML AMPUL.NEB INHALATION ×3 (02:40→11:16)
[2024-09-16] MEDS: Insulin Lispro 100 UNIT/ML INSULN.PEN SC (06:18)
[2024-09-16] MEDS: 0.9% Saline Lock 10 ML Syringe IV ×2 (06:18→13:56)
[2024-09-16 06:41] LABS: Bedside Glucose 159 mg/dL (74-106)
--- NOTE | 2024-09-16 07:15 | CPS ---
At this time, pt is not using PEP because it is causing her to have coughing fits which takes her breath away.
[2024-09-16] MEDS: Lisinopril 20 MG Tablet PO (08:05)
[2024-09-16] MEDS: guaiFENesin 1,200 MG Tablet 1200 MG PO (08:05)
[2024-09-16] MEDS: Furosemide 40 MG Tablet PO (08:05)
[2024-09-16] MEDS: HYDROcodone Bitartrate/Apap 5/325 Tablet PO (08:05)
[2024-09-16] MEDS: Enoxaparin 40 MG/0.4 ML Syringe SC (08:08)
[2024-09-16] MEDS: Gabapentin 300 MG Capsule PO ×2 (08:09→13:55)
--- NOTE | 2024-09-16 10:22 | CASEMGMT ---
Addendum entered by Kelsea Banks 09/16/24 14:37: Referral to [employer] for oxygen via [facility]. Pt has testing that was not reading correctly. Spoke with pt nurse, pt did drop on 2L with ambulation but did immediately recover. Pt ordered 2L with exertion only. Addendum entered by Kelsea Banks 09/16/24 12:30: Spoke with hospitalist, cancelled therapy order as pt seen up with nurse. Addendum entered by Kelsea Banks 09/16/24 12:01: ÁNGEL SHAVER into pt room, pt states she was not able to look at the PCP list. Pt states he will do this once she is discharged and she is able to set up appts on her own. Pt states she was using her sister's oxygen. Discussed should pt need home oxygen, the local in network DME companies pt can chose from. Pt chose [employer]. Pt states her motel room is [address]. She states her sister is living with her. This was misunderstood in assessment yesterday. Green sheet on chart for oxygen. Pt denies any need for therapy services upon dc. Original Note: Noted no therapy ordered. 6 cl=20. Requested order d/t pt social/home situation at dc. Therapy orders entered.
[2024-09-16] MEDS: Azithromycin 250 MG Tablet PO (11:19)
[2024-09-16] MEDS: LORazepam 0.5 MG Tablet PO (11:21)
[2024-09-16 11:37] LABS: Bedside Glucose 141 mg/dL (74-106)
--- NOTE | 2024-09-16 13:48 | DCINST_ITS ---
Discharge Instructions Diet Discharge Diet: No restrictions DC O2, CPAP, BIPAP needs RN Home O2 Qualification: Home O2 Qualification: Is the patient on home oxygen No 09/16/24 13:36 Home O2 Qualification: AT REST 1- Pulse Ox at rest 96 09/16/24 13:36 Home O2 Qualification: WITH AMBULATION 1- Pulse Ox with ambulation 84 09/16/24 13:36 1- Oxygen Flow Rate with 2 09/16/24 13:36 ambulation 2- Pulse Ox with ambulation 90 09/16/24 13:36 2- Oxygen Flow Rate with 2 09/16/24 13:36 ambulation 3- Pulse Ox with ambulation 60 09/16/24 13:08 3- Oxygen Flow Rate with 4 09/16/24 13:08 ambulation 4- Pulse Ox with ambulation 56 09/16/24 13:08 4- Oxygen Flow Rate with 6 09/16/24 13:08 ambulation 4- Stopped test - Unable to Yes 09/16/24 13:08 obtain pulse ox >89% w/ max oxyg Home O2 Discharge instructions: Yes Type of respiratory needs?: Oxygen Oxygen frequency: With Ambulation Oxygen liters per minute during Ambulation: 2 L Dressing / Incision Discharge Activity: Return to Normal Activity Weight Bearing Status: Full weight bearing Follow Up Care Test Results: Test results from this visit will be discussed in further detail at your follow- up appointment, if applicable. Discharge Plan Admission Admit Date/Time: 09/14/24 16:43 Primary Reason for Your Visit: RSV infection, hypoxia Attending Provider: Karthik Rodrigues Primary Care Provider: Care Physician,No Primary Consulting Providers: Gladis Luna Instructions Additional Instructions / Restrictions: Use oxygen at 2 L when ambulating, you do not require oxygen at rest Refrain from smoking Discharge Orders/Prescriptions Prescriptions: New nicotine 14 mg/24 hr Patch 24 Hour 14 mg transdermal DAILY Qty: 30 0RF tramadol 100 mg tablet 100 mg PO Q6H PRN (Reason: pain) Qty: 28 0RF Rx Instructions: May use for headache, may take with 650 mg of Tylenol if desired prednisone 20 mg tablet 20 mg PO DAILY Qty: 10 0RF Rx Instructions: 1 daily for 10 days then stop the medication albuterol sulfate 90 mcg/actuation HFA aerosol inhaler 2 puff inhalation Q6H PRN (Reason: shortness of breath or wheezing) Qty: 6.7 0RF Continued albuterol sulfate 2.5 mg /3 mL (0.083 %) solution for nebulization 2.5 mg inhalation Q4H PRN Qty: 25 0RF Rx Instructions: Use q4 hours and PRN for wheezing furosemide [Lasix] 40 mg tablet 40 mg PO DAILY Qty: 7 0RF lorazepam 0.5 mg tablet 0.5 mg PO Q8H PRN PRN (Reason: anxiety) Trelegy Ellipta 100-62.5-25 mcg blister with device 1 inh inhalation DAILY gabapentin 400 mg capsule 400 mg PO Q6H metformin 500 mg tablet 500 mg PO DAILY lisinopril 20 mg tablet 20 mg PO DAILY ropinirole 2 mg tablet 2 mg PO QHS trazodone 150 mg tablet 150 mg PO QHS quetiapine 50 mg tablet 50 mg PO QHS Discontinued azithromycin 250 mg tablet 250 mg PO DAILY Qty: 4 0RF tramadol 50 mg tablet 50 mg PO Q8H PRN PRN (Reason: pain) prednisone 20 mg tablet 60 mg PO Q8 Referrals / Follow Up: Care Physician,No Primary [Primary Care Provider] - Varsha Avila Ann, AUT[employer] T[employer]E UP MECHANIC-C [[facility]] - Within 2 Weeks (Call for an appointment) Disposition Disposition (needs filled in before D/C Order can be placed): Home, Self Care
--- NOTE | 2024-09-16 14:20 | PCM.DC.SUM ---
Providers Date of Admission: 09/14/24 Date of Discharge: 09/16/24 Primary Care Physician: Sweta Primary Care Phys Reason For Visit: AECOPD 2/2 RSV Diagnosis Discharge Diagnosis (1) Respiratory syncytial virus (RSV): Status: Acute Code(s): B33.8 - Other specified viral diseases Plan 1. Respiratory syncytial virus infection-patient will remain on IV corticosteroids and aerosol treatments #2 hypoxia secondary to #1-pulse ox will be monitored oxygen will be weaned if able #3 Exacerbation of chronic obstructive pulmonary disease-due to RSV infection-complicates care, management, recovery, and prognosis #4 essential hypertension-patient is on lisinopril Total clinical time spent by myself addressing the patient's medical issues, reviewing all of her data, and collaborating with patient's care team: 35 minutes Medications at Discharge Home Medications albuterol sulfate 2.5 mg/3 mL (0.083 %) solution for nebulization 2.5 mg (3 mL) inhalation Q4H PRN #25 vials 09/12/24 furosemide 40 mg tablet (Lasix) 40 mg PO DAILY #7 tabs 09/12/24 fluticasone fur. 100 mcg-umeclid 62.5 mcg-vilant 25 mcg inhalat.powder (Trelegy Ellipta) 1 inh inhalation DAILY 09/14/24 gabapentin 400 mg capsule 400 mg PO Q6H 09/14/24 lisinopril 20 mg tablet 20 mg PO DAILY 09/14/24 lorazepam 0.5 mg tablet 0.5 mg PO Q8H PRN PRN anxiety 09/14/24 metformin 500 mg tablet 500 mg PO DAILY 09/14/24 quetiapine 50 mg tablet 50 mg PO QHS 09/14/24 ropinirole 2 mg tablet 2 mg PO QHS 09/14/24 trazodone 150 mg tablet 150 mg PO QHS 09/14/24 albuterol sulfate 90 mcg/actuation aerosol inhaler 2 puff inhalation Q6H PRN shortness of breath or wheezing #6.7 grams 09/16/24 codeine 10 mg-guaifenesin 100 mg/5 mL oral liquid (Guaifenesin AC) 10 ml PO Q6H PRN cough #237 mL 09/16/24 nicotine 14 mg/24 hr daily transdermal patch 14 mg transdermal DAILY #30 ea 01/17/25 prednisone 20 mg tablet 20 mg PO DAILY #10 tabs 09/16/24 tramadol 100 mg tablet 100 mg PO Q6H PRN pain #28 tabs 09/16/24 Hospital Course Operations None Procedures None Summary of Care Provided Minutes Spent on Discharge: 31 Hospital Course: This 69-year-old white female was seen in the emergency room at [facility] with complaints of shortness of breath. Workup in the emergency room showed the patient was positive for RSV PCR, there was no obvious infiltrates on the patient's chest x-ray. Patient was admitted to [place] [address] and placed on aerosol treatments and given IV corticosteroids. Patient required home oxygen set up at the time of discharge. Patient did have a history of COPD. On 09/16/2024, patient was seen and examined: On examination she appeared in good health and spirits, she does not appear to be in any distress. Vital signs as documented. Skin warm and dry and without overt rashes. Neck without JVD, thyroid appears normal, trachea is midline, neck is supple. Lungs clear, normal air movement was noted. Heart exam notable for regular rhythm, normal sounds and absence of murmurs, rubs or gallops. Abdomen unremarkable and without evidence of organomegaly, masses, or abdominal aortic enlargement, bowel sounds are present in all 4 quadrants, no abdominal tenderness was noted. Extremities nonedematous, no cyanosis was noted, no clubbing was noted. Neuro: Cranial nerves II through XII are grossly intact, no focal motor deficits were noted, sensation to light touch and pinprick is intact, motor exam 5/5 throughout. Psych: Patient is alert and oriented x3, she does not appear anxious or depressed, she does not appear agitated. Patient was discharged home in stable condition on 09/16/2024 Medical Records Data Homelessness:: Sheltered Weight / BMI Weight Weight: 68.5 kg Body Mass Index (BMI) 24.3 ABG / Lab / Microbiology Data 09/15/24 06:18 09/15/24 06:18 Laboratory: Laboratory Results - last 24 hr 09/15/24 16:02: POC Glucose 137 H 09/15/24 21:37: POC Glucose 142 H 09/16/24 06:17: POC Glucose 159 H 09/16/24 11:17: POC Glucose 141 H Microbiology: Microbiology 09/14/24 14:20 Mucosa - Nose SARS-CoV-2, Influenza & RSV (PCR) - Final RSV Radiography Diagnostic Testing: Radiology Impression Venous Doppler Study 09/14/24 20:38 Interpretation Summary Deep veins of the lower extremities are bilaterally patent and compressible segmentally. There is no evidence of deep vein thrombosis on either side. Valvular competence appears intact within the proximal deep venous systems bilaterally. The great saphenous veins appear bilaterally patent and compressible segmentally. Ordering Physician: Gladis Luna Referring Physician: N/A Performed By: Hiram Rice RVT D/C Instructions Discharge Diet: No restrictions Weight Bearing Status: Full weight bearing DC O2, CPAP, BIPAP Needs RN Home O2 Qualification: Home O2 Qualification: Is the patient on home oxygen No 09/16/24 13:36 Home O2 Qualification: AT REST 1- Pulse Ox at rest 96 09/16/24 13:36 Home O2 Qualification: WITH AMBULATION 1- Pulse Ox with ambulation 84 09/16/24 13:36 1- Oxygen Flow Rate with 2 09/16/24 13:36 ambulation 2- Pulse Ox with ambulation 90 09/16/24 13:36 2- Oxygen Flow Rate with 2 09/16/24 13:36 ambulation 3- Pulse Ox with ambulation 60 09/16/24 13:08 3- Oxygen Flow Rate with 4 09/16/24 13:08 ambulation 4- Pulse Ox with ambulation 56 09/16/24 13:08 4- Oxygen Flow Rate with 6 09/16/24 13:08 ambulation 4- Stopped test - Unable to Yes 09/16/24 13:08 obtain pulse ox >89% w/ max oxyg Home O2 Discharge instructions: Yes Type of respiratory needs?: Oxygen Oxygen frequency: With Ambulation Oxygen liters per minute during Ambulation: 2 L DC home with Oxygen: Yes Home O2 MD Review: I have reviewed the oxygen testing, and the patient qualifies for home oxygen equipment and portability. The patient is mobile in the home and the community. Meaningful Use Info Meaningful Use Meaningful Use Diagnoses (Choose all that apply): None applicable Ischemic Stroke Statin Dosing Therapy Reference: STATIN DOSE THERAPY REFERENCE: * Patients > 75 years receive moderate or high dose statin therapy. * Patients 75 years or YOUNGER should receive HIGH intensity statin dose unless contraindicated. You will be required to document reason for non-treatment if statin daily dose does not meet guidelines. HIGH DOSE STATIN THERAPY DAILY Atorvastatin > than or = to 40 mg Rosuvastatin > than or = to 20 mg Amlodipine + Atorvastatin > than or = to 2.5/40 mg Ezetimibe + Simvastatin 10/80 mg Simvastatin 80mg Discharge Plan Admission Admit Date/Time: 09/14/24 16:43 Primary Reason for Your Visit: RSV infection, hypoxia Attending Provider: Karthik Rodrigues Primary Care Provider: Care Physician,No Primary Consulting Providers: Gladis Luna Instructions Additional Instructions / Restrictions: Use oxygen at 2 L when ambulating, you do not require oxygen at rest Refrain from smoking Discharge Orders/Prescriptions Prescriptions: New nicotine 14 mg/24 hr Patch 24 Hour 14 mg transdermal DAILY Qty: 30 0RF tramadol 100 mg tablet 100 mg PO Q6H PRN (Reason: pain) Qty: 28 0RF Rx Instructions: May use for headache, may take with 650 mg of Tylenol if desired prednisone 20 mg tablet 20 mg PO DAILY Qty: 10 0RF Rx Instructions: 1 daily for 10 days then stop the medication albuterol sulfate 90 mcg/actuation HFA aerosol inhaler 2 puff inhalation Q6H PRN (Reason: shortness of breath or wheezing) Qty: 6.7 0RF codeine-guaifenesin [Guaifenesin AC] 10-100 mg/5 mL liquid 10 ml PO Q6H PRN (Reason: cough) Qty: 237 1RF Rx Instructions: one or two teaspoons every six hours as needed for cough Continued albuterol sulfate 2.5 mg /3 mL (0.083 %) solution for nebulization 2.5 mg inhalation Q4H PRN Qty: 25 0RF Rx Instructions: Use q4 hours and PRN for wheezing furosemide [Lasix] 40 mg tablet 40 mg PO DAILY Qty: 7 0RF lorazepam 0.5 mg tablet 0.5 mg PO Q8H PRN PRN (Reason: anxiety) Trelegy Ellipta 100-62.5-25 mcg blister with device 1 inh inhalation DAILY gabapentin 400 mg capsule 400 mg PO Q6H metformin 500 mg tablet 500 mg PO DAILY lisinopril 20 mg tablet 20 mg PO DAILY ropinirole 2 mg tablet 2 mg PO QHS trazodone 150 mg tablet 150 mg PO QHS quetiapine 50 mg tablet 50 mg PO QHS Discontinued azithromycin 250 mg tablet 250 mg PO DAILY Qty: 4 0RF tramadol 50 mg tablet 50 mg PO Q8H PRN PRN (Reason: pain) prednisone 20 mg tablet 60 mg PO Q8 Referrals / Follow Up: Care Physician,No Primary [Primary Care Provider] - Varsha Avila, CHIEF NURSING EXECUTIVE-C [[facility]] - Within 2 Weeks (Call for an appointment) Disposition Disposition (needs filled in before D/C Order can be placed): Home, Self Care Charges/Coding Visit Charges Inpatient E&M: 04143 Disch Hosp >30min
--- NOTE | 2024-09-16 14:22 | PCM.HOSP.N ---
Hospitalist Note Oxygen testing reviewed, patient is ambulatory in the home and community and requires home oxygen with portability
== END 2024-09-16 16:43 | disposition home or self-care (01) | DRG 191 ==
LOC: ED 16:53 → MS3 17:40
PROVIDERS: Admitting Provider Internal Medicine; Emergency Provider Emergency Medicine; Referring Provider Emergency Medicine; Visit Provider Internal Medicine
DX: J44.1 Chronic obstructive pulmonary disease with (acute) exacerbation (principal); Z59.00 Homelessness unspecified; B97.4 Respiratory syncytial virus as the cause of diseases classified elsewhere; E11.40 Type 2 diabetes mellitus with diabetic neuropathy, unspecified; N18.32 Chronic kidney disease, stage 3b; F31.9 Bipolar disorder, unspecified; I12.9 Hypertensive chronic kidney disease with stage 1 through stage 4 chronic kidney disease, or unspecified chronic kidney disease; G25.81 Restless legs syndrome; F17.210 Nicotine dependence, cigarettes, uncomplicated; E11.22 Type 2 diabetes mellitus with diabetic chronic kidney disease; F41.9 Anxiety disorder, unspecified; R60.9 Edema, unspecified; Z79.84 Long term (current) use of oral hypoglycemic drugs; Z79.51 Long term (current) use of inhaled steroids; Z79.899 Other long term (current) drug therapy
CPT/HCPCS: 36415; 71045; 71046; 71275; 80048; 80053; 82962; 83735; 83880; 84100; 84443; 84484; 85025; 85379; 87631; 93005; 93306; 93970; 94640; 94668; 99252; 99283; 99284; 99406; Q9967; A4216; G0463

== ENCOUNTER 2024-10-13 22:51 | Emergency (ER) | payer MEDICARE, SELFPAY ==
[2024-10-13 22:52] VITALS: BP 145/63; PULSE 65; RESP 14; TEMP 36.5; O2SAT 98; BMI 27.7
[2024-10-13 22:57] VITALS: BP 145/63; PULSE 71; RESP 16; TEMP 36.5; O2SAT 98
--- NOTE | 2024-10-13 23:05 | EKG12_ITS ---
Test Reason : SOB Blood Pressure : */* mmHG Vent. Rate : 66 BPM Atrial Rate : 66 BPM P-R Int : 140 ms QRS Dur : 74 ms QT Int : 398 ms P-R-T Axes : 57 5 45 degrees QTcB Int : 417 ms Normal sinus rhythm Normal ECG Confirmed by AYDEE MCGARRY, NOEL ([id number]), news copy editor TIFFANY BRAN ([id number]) on 10/17/2024 8:11:20 AM Referred By: AGA Confirmed By: NOEL BAJWA MD
--- NOTE | 2024-10-13 23:06 | ED.VIS.DYS ---
HPI History of Present Illness Chief Complaint: Shortness of Breath Narrative Narrative: 69-year-old female past medical history of COPD presents with shortness of breath cough that she has had for the last month. She relates history that she was diagnosed with RSV, and was hospitalized. She was sent home on oxygen approximately 3 L that she supposed to wear. Currently, she is living in a motel because she moved up here from [place]. She presents via EMS with increasing shortness of breath over the last few days with cough. She also states that over the last 4 to 5 hours she has had chest pain and tightness as well. She also complains of bilateral leg swelling but denies history of CHF. She is a smoker and is down to half a pack a day as she was smoking 2 packs a day. [facility] Medical History Kidney disease Bipolar disorder Anxiety Depression Osteoporosis Smoker Chest pain Hypertension Migraines COPD (chronic obstructive pulmonary disease) Kidney disease Home Medications ?Medication ?Instructions ?Recorded ?Last Taken ?Type albuterol sulfate 2.5 mg/3 mL 2.5 mg (3 mL) inhalation Q4H PRN 09/12/24 Unknown Rx (0.083 %) solution for nebulization #25 vials furosemide 40 mg tablet (Lasix) 40 mg PO DAILY #7 tabs 09/12/24 Unknown Rx fluticasone fur. 100 mcg-umeclid 1 inh inhalation DAILY 09/14/24 Unknown History 62.5 mcg-vilant 25 mcg inhalat.powder (Trelegy Ellipta) gabapentin 400 mg capsule 400 mg PO Q6H 09/14/24 Unknown History lisinopril 20 mg tablet 20 mg PO DAILY 09/14/24 Unknown History lorazepam 0.5 mg tablet 0.5 mg PO Q8H PRN PRN anxiety 09/14/24 Unknown History metformin 500 mg tablet 500 mg PO DAILY 09/14/24 Unknown History quetiapine 50 mg tablet 50 mg PO QHS 09/14/24 Unknown History ropinirole 2 mg tablet 2 mg PO QHS 09/14/24 Unknown History trazodone 150 mg tablet 150 mg PO QHS 09/14/24 Unknown History albuterol sulfate 90 mcg/actuation 2 puff inhalation Q6H PRN 09/16/24 Unknown Rx aerosol inhaler shortness of breath or wheezing #6.7 grams codeine 10 mg-guaifenesin 100 mg/5 10 ml PO Q6H PRN cough #237 mL 09/16/24 Unknown Rx mL oral liquid (Guaifenesin AC) nicotine 14 mg/24 hr daily 14 mg transdermal DAILY #30 ea 09/16/24 Unknown Rx transdermal patch prednisone 20 mg tablet 20 mg PO DAILY #10 tabs 09/16/24 Unknown Rx tramadol 100 mg tablet 100 mg PO Q6H PRN pain #28 tabs 09/16/24 Unknown Rx albuterol sulfate 90 mcg/actuation 1 - 2 puff inhalation Q4H PRN PRN 10/14/24 Unknown Rx aerosol inhaler (Ventolin HFA) Wheezing #1 ea ipratropium 0.5 mg-albuterol 3 mg 3 ml inhalation Q6H PRN shortness 10/14/24 Unknown Rx (2.5 mg base)/3 mL nebulization of breath #90 mL soln prednisone 20 mg tablet 40 mg (2 x 20 mg) PO DAILY 7 days 10/14/24 Unknown Rx #14 tabs Allergy/AdvReac Type Severity Reaction Status Date / Time No Known Allergies Allergy Verified 10/13/24 22:51 Surgical History History of appendectomy Social History household members: family housing: house Smoking Status: Current every day smoker tobacco type: cigarettes alcohol intake: never substance use type: does not use ROS ROS ED ROS Narrative Constitutional: No fever, no chills. HEENT: No sore throat. No neck pain. No loss of vision. No rhinorrhea. Cardiovascular: Positive chest tightness/chest pain. No palpitations. Bilateral pedal edema. Respiratory: Positive cough, increasing shortness of breath and dyspnea on exertion. Abdominal: No abdominal pain. No nausea. No vomiting. Genitourinary: No dysuria. No hematuria. Musculoskeletal: No myalgias. No arthralgias. Neurologic: No headaches. No dizziness. No lightheadedness. Skin: No rash. No change in color. Psychiatric: No depression. No anxiety. EXAM Physical Exam Narrative Exam Narrative: Afebrile. Vital signs noted. Nontoxic-appearing. Cardiovascular examination reveals a regular rate and rhythm. Respiratory examination shows lungs clear to auscultation bilaterally with diminished sounds at the bilateral bases. She has slightly prolonged expiratory phase but no overt wheezing, no stridor. Abdomen is soft and nontender with positive bowel sounds. Neurological examination is nonfocal and nonlateralizing. Trace pedal edema bilaterally, equal and symmetric. Const Vital Signs: 10/13/24 22:52 10/13/24 22:57 10/13/24 22:57 Temperature 97.7 F L 97.7 F L Temperature Source Oral Oral Pulse Rate 65 71 Respiratory Rate 14 16 Respiratory Effort Short of Breath Accessory Muscle Use Respiratory Depth Normal Respiratory Pattern Normal Blood Pressure 145/63 H 145/63 H Blood Pressure Mean 90 90 Pulse Ox 98 98 Oxygen Delivery Method Nasal Cannula Nasal Cannula Nasal Cannula Oxygen Flow Rate (L/min) 3 3 3 10/13/24 23:14 10/13/24 23:20 10/13/24 23:20 Temperature Temperature Source Pulse Rate 64 Respiratory Rate 21 H Respiratory Effort Respiratory Depth Respiratory Pattern Normal Blood Pressure Blood Pressure Mean Pulse Ox 97 98 Oxygen Delivery Method Nasal Cannula Nasal Cannula Oxygen Flow Rate (L/min) 3 3 10/13/24 23:56 10/14/24 00:51 10/14/24 01:55 Temperature 97.7 F L 98.7 F Temperature Source Oral Pulse Rate 72 69 90 Respiratory Rate 17 14 19 H Respiratory Effort Respiratory Depth Respiratory Pattern Blood Pressure 126/73 H 142/61 H 142/61 H Blood Pressure Mean 90 88 88 Pulse Ox 93 97 97 Oxygen Delivery Method Nasal Cannula Nasal Cannula Oxygen Flow Rate (L/min) 3 3 10/14/24 02:00 Temperature Temperature Source Pulse Rate 72 Respiratory Rate 17 Respiratory Effort Respiratory Depth Respiratory Pattern Blood Pressure 142/61 H Blood Pressure Mean 88 Pulse Ox 97 Oxygen Delivery Method Nasal Cannula Oxygen Flow Rate (L/min) 3 MDM MDM MDM Narrative Medical decision making narrative: Differential diagnosis includes but not limited to ACS versus COPD exacerbation versus viral bronchitis including COVID versus pneumonia versus RSV. I have low suspicion for CHF because she does not appear overtly fluid overloaded. She was given a DuoNeb aerosolized treatment as well as Solu-Medrol 125 mg intravenously. She is satting 98% on her 3 L nasal cannula which she is supposed to be wearing. EKG was obtained and interpreted by myself independently as normal sinus rhythm at 66 bpm without ectopy or acute ST changes. No STEMI. I reviewed her laboratory work and she has normal white count 7.0, hemoglobin 12.8, hematocrit 40.1 with platelet count normal at 275. While BMP shows elevated potassium of 5.2, there are no acute ST changes on her EKG. I do not feel that she meets hyperkalemia protocol. I do not feel that she requires calcium for cardiac instability. BUN of 45 with creatinine 1.64, but in review of her prior laboratories she has chronic kidney disease. Glucose 83. Initial high-sensitivity troponin is 8 with repeat at 2 hours being 9. I feel that she has been ruled out for ACS with biomarkers. BNP normal at 32. Chest x-ray interpreted by myself independently shows no evidence of an acute process, no pneumonia, no pneumothorax. I reviewed the radiology report which confirms my independent interpretation. Upon repeat examination, she is resting comfortably and satting well on her nasal cannula oxygen. She states that she ran out of her medications including prednisone, and albuterol. She states that her sister has a nebulizer that she could use. I wrote her prescription for DuoNeb nebulizer treatments as well to use instead of the rescue inhaler. Smoking cessation was discussed. At this point in time, I do not feel that she requires any inpatient hospitalization or observation. I had reviewed her respiratory swabs and they are negative for COVID, influenza, and RSV. She was referred to a primary care provider. Return instructions to the emergency department were reviewed. Disposition is discharged home in stable condition. History & Record Review Discussion w/independent historian: Patient Lab Data Attestation: I reviewed the patient's lab results. Labs: Laboratory Results - last 24 hr 10/13/24 10/14/24 22:58 01:03 WBC 7.0 RBC 4.55 Hgb 12.8 Hct 40.1 MCV 88.1 MCH 28.1 MCHC 31.9 L RDW Std Deviation 48.6 H RDW Coeff of Magno 15.1 H Plt Count 275 MPV 9.8 Immature Gran % (Auto) 0.600 Neut % (Auto) 48.2 Lymph % (Auto) 39.2 [place] % (Auto) 7.1 Eos % (Auto) 4.3 Baso % (Auto) 0.6 Absolute Neuts (auto) 3.4 Absolute Lymphs (auto) 2.75 Nucleated RBC % 0 Sodium 141 Potassium 5.2 H Chloride 107 Carbon Dioxide 30.0 Anion Gap 4 L BUN 45 H Creatinine 1.64 H Estim Creat Clear Calc 33.15 Est GFR (MDRD) Af Amer 40 L Est GFR (MDRD) Non-Af 33 L BUN/Creatinine Ratio 27.4 H Glucose 83 Calcium 9.3 Troponin I High Sens 8 9 B-Natriuretic Peptide 32.1 Radiography Diagnostic Testing: Clinical Impression(s) from Imaging Studies Chest X-Ray 10/13/24 23:39 IMPRESSION: No acute airspace abnormality. Reading [facility] Discharge Plan Triage Chief Complaint: Shortness of Breath ED Provider: Pako Fink Dx/Rx/DC Orders Clinical Impression: COPD exacerbation, Chest pain, SOB (shortness of breath) Instructions: COPD Quit Smoking, ED COPD Flare, ED Chest Pain, Uncertain Cause Prescriptions: New prednisone 20 mg tablet 40 mg PO DAILY 7 Days Qty: 14 0RF albuterol sulfate [Ventolin HFA] 90 mcg/actuation HFA aerosol inhaler 1 - 2 puff inhalation Q4H PRN PRN (Reason: Wheezing) Qty: 1 0RF ipratropium-albuterol 0.5 mg-3 mg(2.5 mg base)/3 mL solution for nebulization 3 ml inhalation Q6H PRN (Reason: shortness of breath) Qty: 90 0RF No Action albuterol sulfate 2.5 mg /3 mL (0.083 %) solution for nebulization 2.5 mg inhalation Q4H PRN Qty: 25 0RF Rx Instructions: Use q4 hours and PRN for wheezing furosemide [Lasix] 40 mg tablet 40 mg PO DAILY Qty: 7 0RF lorazepam 0.5 mg tablet 0.5 mg PO Q8H PRN PRN (Reason: anxiety) Trelegy Ellipta 100-62.5-25 mcg blister with device 1 inh inhalation DAILY gabapentin 400 mg capsule 400 mg PO Q6H metformin 500 mg tablet 500 mg PO DAILY lisinopril 20 mg tablet 20 mg PO DAILY ropinirole 2 mg tablet 2 mg PO QHS trazodone 150 mg tablet 150 mg PO QHS quetiapine 50 mg tablet 50 mg PO QHS nicotine 14 mg/24 hr Patch 24 Hour 14 mg transdermal DAILY Qty: 30 0RF tramadol 100 mg tablet 100 mg PO Q6H PRN (Reason: pain) Qty: 28 0RF Rx Instructions: May use for headache, may take with 650 mg of Tylenol if desired prednisone 20 mg tablet 20 mg PO DAILY Qty: 10 0RF Rx Instructions: 1 daily for 10 days then stop the medication albuterol sulfate 90 mcg/actuation HFA aerosol inhaler 2 puff inhalation Q6H PRN (Reason: shortness of breath or wheezing) Qty: 6.7 0RF codeine-guaifenesin [Guaifenesin AC] 10-100 mg/5 mL liquid 10 ml PO Q6H PRN (Reason: cough) Qty: 237 1RF Rx Instructions: one or two teaspoons every six hours as needed for cough Primary Care Provider: Care Physician,No Primary Referrals: Justice Reinoso MD [Med Staff - Active Staff] - As soon as possible Care Physician,No Primary [Primary Care Provider] - Activity Restrictions/Additional Instructions: Stop smoking. Use your albuterol every 4-6 hours as needed. Or if your sister brings the nebulizer, use nebulizer treatments every 6 hours as needed for shortness of breath instead of the rescue inhaler. Finish the steroid burst starting tomorrow. Wear your oxygen that you have at home. Return with new or worsening symptoms. Print Language: Lao Disposition Disposition: Home, Self Care
[2024-10-13 23:14] VITALS: O2SAT 97
[2024-10-13] MEDS: MethylPREDNISolone 125 MG/2 ML Vial IV (23:14)
[2024-10-13 23:20] VITALS: PULSE 64; RESP 21; O2SAT 98
[2024-10-13] MEDS: Ipratropium/Albuterol Sulfate 3 ML AMPUL.NEB INHALATION (23:20)
[2024-10-13 23:21] LABS: Absolute Lymphocyte Count 2.75 X10^3/uL (0.83-4.51); Absolute Neutrophil Count 3.4 X10^3/uL (2.0-7.7); Basophil# 0.04 X10^3/uL; Basophil% 0.6 % (0-1); Eosinophils% 4.3 % (0-5); Hematocrit 40.1 % (37-47); Hemoglobin 12.8 g/dL (12.0-15.0); Lymphocyte # 2.75 X10^3/ul (0.83-4.51); Lymphocyte % 39.2 % (19-41); Mean Corp Hgb Conc 31.9 g/dL (32-36); Mean Corpuscular Hgb 28.1 pg (27.0-32.0); Mean Corpuscular Volume 88.1 fL (81-99); Mean Platelet Vol. 9.8 fl (6.2-12.0); Monocyte% 7.1 % (0-10); NRBC Flagged by Analyzer 0 % (0-5); Neutrophil # 3.39 X10^3/uL (2.7-7.7); Neutrophil % 48.2 % (47-70); Platelet Count 275 K/mm3 (150-450); RBC Distribution Width CV 15.1 % (11.6-14.6); RBC Distribution Width SD 48.6 fl (35.1-43.9); Red Blood Count 4.55 M/mm3 (4.2-5.4)
[2024-10-13 23:37] LABS: Anion Gap 4 (5-15); BUN 45 mg/dL (7-18); BUN/Creat Ratio 27.4 RATIO (10-20); Calcium,Total 9.3 mg/dL (8.5-10.1); Chloride 107 mmol/L (98-107); Creatinine, Serum 1.64 mg/dL (0.55-1.02); EST Glomerular Filtration Rate 33 mL/min (>60); Est Glom Filt Rate - Afr Amer 40 mL/min (>60); Estimated Creatinine Clearance 33.15 ml/min; Glucose 83 mg/dL (74-106); Potassium 5.2 mmol/L (3.5-5.1); Sodium Level 141 mmol/L (136-145); Troponin-I HS (w/2H Reflex) 8 pg/mL (3.0-54.0)
[2024-10-13 23:38] LABS: BNP,B-Type NATRIURETIC PEPTIDE 32.1 pg/mL (0-100)
--- NOTE | 2024-10-13 23:39 | RAD_ITS ---
PROCEDURE: Chest radiograph REASON FOR EXAM: Shortness of breath TECHNIQUE: Frontal view of the chest COMPARISON: 09/12/2024 FINDINGS: Cardiomediastinal silhouette is within normal limits. Lungs are clear. No sizable pneumothorax. RAD/Chest 1 View (Portable) IMPRESSION: No acute airspace abnormality. Reading Location: [facility]
[2024-10-13 23:56] VITALS: BP 126/73; PULSE 72; RESP 17; TEMP 36.5; O2SAT 93
[2024-10-14] MEDS: Acetaminophen 325 MG Tablet 650 MG PO (00:47)
[2024-10-14 00:51] VITALS: BP 142/61; PULSE 69; RESP 14; O2SAT 97
[2024-10-14 01:16] LABS: Reflex Troponin-HS? (from REC) Y
[2024-10-14 01:34] LABS: Troponin-I HS 9 pg/mL (3.0-54.0)
[2024-10-14 01:55] VITALS: BP 142/61; PULSE 90; RESP 19; TEMP 37.1; O2SAT 97
[2024-10-14 02:00] VITALS: BP 142/61; PULSE 72; RESP 17; O2SAT 97
[2024-10-14] MEDS: Gabapentin 100 MG Capsule 400 MG PO (03:01)
== END 2024-10-14 06:53 | disposition home or self-care (01) ==
PROVIDERS: Emergency Provider Emergency Medicine; Visit Provider Emergency Medicine
DX: J44.1 Chronic obstructive pulmonary disease with (acute) exacerbation (principal); F31.9 Bipolar disorder, unspecified; R07.9 Chest pain, unspecified; R06.02 Shortness of breath; F17.210 Nicotine dependence, cigarettes, uncomplicated
CPT/HCPCS: 71045; 80048; 83880; 84484; 85025; 87631; 93005; 94640; 96374; 99285; A4216

== ENCOUNTER 2024-11-10 15:01 | Observation (INO) | payer MEDICARE, SELFPAY ==
[2024-11-10] VITALS (27 sets, daily range): BP systolic 119–163; BP diastolic 52–130; PULSE 68–88; RESP 13–31; TEMP 36.5–36.9; O2SAT 94–100; BMI 25.9; BMI 24.8
--- NOTE | 2024-11-10 15:10 | EDS_ITS ---
HPI History of Present Illness Chief Complaint: Shortness of Breath PFSH PFSH Medical History Kidney disease Bipolar disorder Anxiety Depression Osteoporosis Smoker Chest pain Hypertension Migraines COPD (chronic obstructive pulmonary disease) Kidney disease Home Medications ?Medication ?Instructions ?Recorded ?Last Taken ?Type albuterol sulfate 2.5 mg/3 mL 2.5 mg (3 mL) inhalation Q4H PRN 09/12/24 11/10/24 Rx (0.083 %) solution for nebulization #25 vials furosemide 40 mg tablet (Lasix) 40 mg PO DAILY #7 tabs 09/12/24 Unknown Rx fluticasone fur. 100 mcg-umeclid 1 inh inhalation KYLEE Y 09/14/24 Unknown History 62.5 mcg-vilant 25 mcg inhalat.powder (Trelegy Ellipta) gabapentin 400 mg capsule 400 mg PO Q6H 09/14/2411/10 History lisinopril 20 mg tablet 20 mg PO DAILY 09/14/24 Unkn own History lorazepam 0.5 mg tablet 0.5 mg PO Q8H PRN PRN anxiet y 09/14/24 Unknown History metformin 500 mg tablet 500 mg PO DAILY 09/14/24 History quetiapine 50 mg tablet 50 mg PO QHS 09/14/24 History ropinirole 2 mg tablet 2 mg PO QHS 09/14/24 5 History trazodone 150 mg tablet 150 mg PO QHS 09/14/2411/09 History albuterol sulfate 90 mcg/actuation 2 puff inhalation Q 6H PRN 09/16/24 11/09/24 Rx aerosol inhaler shortness of breath or wheez ing #6.7 grams codeine 10 mg-guaifenesin 100 mg/5 10 ml PO Q6H PRN co ugh #237 mL 09/16/24 Unknown Rx mL oral liquid (Guaifenesin AC) albuterol sulfate 90 mcg/actuation 1 - 2 puff inhalati on Q4H PRN PRN 10/14/24 11/09/24 Rx aerosol inhaler (Ventolin HFA) Wheezing #1 ea ipratropium 0.5 mg-albuterol 3 mg 3 ml inhalation Q6H PRN shortness 02/14/25 03/13/25 Rx (2.5 mg base)/3 mL nebulization of breath #90 mL soln Allergy/AdvReac Type Severity Reaction Status Date / Time No Known Allergies Allergy Verified 11/10/24 15:07 Surgical History History of appendectomy Social History household members: family housing: house Smoking Status: Current every day smoker tobacco type: cigarettes alcohol intake: never substance use type: does not use EXAM Physical Exam Const Vital Signs: 11/10/24 15:03 11/10/24 15:10 11/10/24 15:35 Temperature 98.3 F Temperature Source Oral Pulse Rate 73 71 Respiratory Rate 26 H 18 Respiratory Effort Short of Breath Labored Respiratory Pattern Normal Normal Blood Pressure 152/130 H Blood Pressure Mean 137 Pulse Ox 99 Oxygen Delivery Method Nasal Cannula Nasal Cannula Oxygen Flow Rate (L/min) 3 3 11/10/24 15:44 11/10/24 15:45 11/10/24 16:00 Temperature Temperature Source Pulse Rate 72 72 Respiratory Rate 26 H 20 H Respiratory Effort Respiratory Pattern Blood Pressure 127/112 H Blood Pressure Mean 119 Pulse Ox 99 99 Oxygen Delivery Method Nasal Cannula Oxygen Flow Rate (L/min) 3 11/10/24 16:00 11/10/24 16:07 11/10/24 16:15 Temperature 97.8 F Temperature Source Oral Pulse Rate 84 71 Respiratory Rate 31 H 18 Respiratory Effort Respiratory Pattern Blood Pressure 119/52 L 163/69 H 163/69 H Blood Pressure Mean 67 100 94 Pulse Ox 98 97 Oxygen Delivery Method Nasal Cannula Oxygen Flow Rate (L/min) 3 11/10/24 16:18 11/10/24 16:30 11/10/24 16:45 Temperature Temperature Source Pulse Rate 81 77 71 Respiratory Rate 25 H 16 15 Respiratory Effort Respiratory Pattern Blood Pressure 163/69 H 138/59 H 127/67 H Blood Pressure Mean 100 81 87 Pulse Ox 99 97 98 Oxygen Delivery Method Oxygen Flow Rate (L/min) 11/10/24 17:00 11/10/24 17:00 11/10/24 17:15 Temperature 98 F Temperature Source Oral Pulse Rate 76 72 77 Respiratory Rate 24 H 15 15 Respiratory Effort Respiratory Pattern Blood Pressure 158/70 H 148/63 H 158/70 H Blood Pressure Mean 99 86 95 Pulse Ox 97 97 98 Oxygen Delivery Method Oxygen Flow Rate (L/min) 11/10/24 17:30 11/10/24 17:45 11/10/24 18:00 Temperature 98.5 F Temperature Source Oral Pulse Rate 81 77 78 Respiratory Rate 13 16 22 H Respiratory Effort Respiratory Pattern Blood Pressure 153/76 H 153/76 H Blood Pressure Mean 96 101 Pulse Ox 97 95 98 Oxygen Delivery Method Nasal Cannula Oxygen Flow Rate (L/min) 3 11/10/24 18:00 11/10/24 18:05 11/10/24 18:15 Temperature 98.5 F Temperature Source Pulse Rate 82 88 72 Respiratory Rate 19 H 22 H 16 Respiratory Effort Respiratory Pattern Blood Pressure 159/75 H 163/75 H Blood Pressure Mean 103 97 Pulse Ox 97 97 Oxygen Delivery Method Nasal Cannula Oxygen Flow Rate (L/min) 3 11/10/24 18:30 11/10/24 18:45 Temperature Temperature Source Pulse Rate 73 78 Respiratory Rate 21 H 28 H Respiratory Effort Respiratory Pattern Blood Pressure 163/76 H 150/99 H Blood Pressure Mean 98 112 Pulse Ox Oxygen Delivery Method Oxygen Flow Rate (L/min) MDM MDM MDM Narrative Medical decision making narrative: HISTORY OF PRESENT ILLNESS: 69-year-old female history of COPD, hypertension, type 2 diabetes, bipolar disorder s presents with concern for shortness of breath. Patient states he is been sick for 1 week. She notes chest reviewed at baseline. She notes she had increased oxygen to 4 L. She notes a nonproductive cough and chest tightness as well. She notes this may be a COPD exacerbation. She does endorse bilateral leg swelling. Notes chest pressure as well. The chest pressure is not exertional. Is not radiating. Is not ripping or tearing. She denies any history of connective tissue disorders or any family history of any aortic pathology. No sick contacts. No vomiting or diarrhea. The patient denies recent surgery in the last 4 weeks or immobilization in the last 3 days, denies previous diagnosis of DVT or PE, hemoptysis, unilateral leg swelling or malignancy with treatment the last 6 months or palliative. No estrogen use noted. REVIEW OF SYSTEMS: Pertinent positives: Shortness of breath, cough chest tightness Pertinent negatives: Syncope, unilateral leg swelling PHYSICAL EXAM: Nursing triage notes reviewed, Vital signs reviewed Constitutional: please see mdm HENT: MMM Eyes: Pupils equal round and reactive to light, Extraocular muscles intact Neck: No stridor, no JVD, full neck ROM Lungs: Clear to auscultation, No wheezing or rales. No increased work of breathing, no conversational dyspnea, no accessory muscle use, no nasal flaring. No respiratory distress noted Heart: Regular rate and rhythm, No murmurs, No rubs and No gallops, 2+ distal pulses (radial, femoral, posterior tibial) in all extremities Abdomen: Soft, there is no tenderness, rigidity, rebound or guarding, no obvious peritoneal signs, no palpable pulsatile abdominal masses, no auscultated abdominal bruit : No CVAT Extremities: 1-2+ pitting edema bilateral lower extremities Neuro: No new focal neurological deficits, cranial nerves II through XII intact, 5/5 strength in all present extremities. Intact sensation to light touch in all present extremities, 2+ reflexes bilateral patella tendons. Skin: No rash or lesions noted MEDICAL DECISION MAKING: Chief Complaint: Shortness of breath External records reviewed: Reviewed prior cardiovascular testing: Reviewed echocardiogram from 2024 which showed an ejection fraction 75% Factors affecting care: As per [facility] Social determinants of health history mental health disorder History obtained from others: EMS Consults: internal medicine (Dr. Donahue) [facility] Narrative: The patient was initially hemodynamically stable saturating 98% on 3 L nasal cannula, she is tachypneic. Afebrile. Exam with tight coarse breath sounds with no obvious focal consolidation. I considered the following differential diagnosis: COPD exacerbation, COVID, RSV, flu, pneumonia, anemia, electrolyte disturbance, ACS I obtained a broad lab and imaging workup to further elucidate the etiology of the patient's complaints. I initially treated the patient with Tylenol with codeine for cough, DuoNeb breathing treatments and steroids to treat COPD empirically While I considered pulmonary embolism as a potential etiology the patient had a low risk Wells score, focal lung findings more consistent with likely COPD exacerbation and infectious symptoms such as stuffiness is more indicative of infectious etiology. I considered obtaining a CTA of the chest with dimer ho wever thought these test were not indicated given low risk Wells score. ALL IMAGES (IF OBTAINED) HAVE BEEN PERSONALLY REVIEWED AND INTERPRETED BY MYSELF. EKG with normal sinus rhythm rate of 73, normal axis, normal intervals, no STEMI Chest x-ray shows evidence of pulmonary venous congestion High-sensitivity troponin is negative, no evidence of myocardial ischemia BNP within normal limit suggestive no significant volume overload CBC with no leukocytosis, no anemia or thrombocytopenia BMP without significant electrolyte abnormalities, no signs of endorgan hypoperfusion or metabolic acidosis Patient attempted ambulate with severe tachypnea with respirate of 30. She is very uncomfortable. The synthesis of the patient's history, physical exam, labs images suggest likely volume overload potentially CHF exacerbation. Will give Lasix. Given signs of volume overload and significant tachypnea thought the patient to be admitted. Discussed with hospitalist The patient and/or family, caregivers express understanding. The patient and/or family, caregivers agrees with the plan. Shared decision making: I will have a discussion with the patient and or visitors regarding risk/benefits of further testing or admission. They will be made aware of of the risk/benefits inherent in this decision they will be given the opportunity to voice understanding. Total critical care time today provided was at least 0 minutes. This excludes separately billable procedures. Critical care time (if documented) is secondary to the patient having high probability of clinically significant/life t hreatening deterioration in the patient's condition which required my urgent intervention. Impression: 1. COPD exacerbation 2. Dyspnea 3. Pneumonia Dispo: Admit to floor This note was generated with [employer] dictation software. It may contain incorrect words, spelling, and punctuation that were not noted in review of the chart prior to signing. Lab Data Labs: Laboratory Results - last 24 hr 11/10/24 14:50 WBC 4.5 RBC 4.85 Hgb 13.4 Hct 43.0 MCV 88.7 MCH 27.6 MCHC 31.2 L RDW Std Deviation 48.4 H RDW Coeff of Magno 15.0 H Plt Count 246 MPV 10.1 Immature Gran % (Auto) 0.200 Neut % (Auto) 58.0 Lymph % (Auto) 29.1 [place] % (Auto) 9.0 Eos % (Auto) 3.3 Baso % (Auto) 0.4 Absolute Neuts (auto) 2.6 Absolute Lymphs (auto) 1.32 Nucleated RBC % 0 Sodium 141 Potassium 4.7 Chloride 103 Carbon Dioxide 24.3 Anion Gap 13 BUN 24 H Creatinine 1.21 H Estim Creat Clear Calc 43.64 L Est GFR (MDRD) Non-Af 48 L BUN/Creatinine Ratio 19.8 Glucose 81 Calcium 9.4 Troponin T High Sens 19 H NT pro BNP II 392 Radiography Diagnostic Testing: Clinical Impression(s) from Imaging Studies Chest X-Ray 11/10/24 15:45 IMPRESSION: Cardiomegaly with mild congestion. Reading Location: [facility] Discharge Plan Disposition Disposition: Acute Care Hospital [facility] Discharge Date/Time: 11/10/24 20:43
--- NOTE | 2024-11-10 15:17 | EKG12_ITS ---
Test Reason : SOB Blood Pressure : */* mmHG Vent. Rate : 73 BPM Atrial Rate : 73 BPM P-R Int : 134 ms QRS Dur : 68 ms QT Int : 376 ms P-R-T Axes : 70 12 50 degrees QTcB Int : 414 ms Normal sinus rhythm Normal ECG Confirmed by AYDEE MCGARRY, NOEL ([id number]), sound editor FLAKO NORMAN ([id number]) on 11/14/2024 10:49:45 AM Referred By: Confirmed By: NOEL BAJWA MD
[2024-11-10] MEDS: Ipratropium/Albuterol Sulfate 3 ML AMPUL.NEB INHALATION ×2 (15:33)
[2024-11-10 15:39] LABS: Absolute Lymphocyte Count 1.32 X10^3/uL (0.83-4.51); Absolute Neutrophil Count 2.6 X10^3/uL (2.0-7.7); Basophil# 0.02 X10^3/uL; Basophil% 0.4 % (0-1); Eosinophil# 0.15 X10^3/uL; Eosinophils% 3.3 % (0-5); Hemoglobin 13.4 g/dL (12.0-15.0); Lymphocyte # 1.32 X10^3/ul (0.83-4.51); Lymphocyte % 29.1 % (19-41); Mean Corp Hgb Conc 31.2 g/dL (32-36); Mean Corpuscular Hgb 27.6 pg (27.0-32.0); Mean Corpuscular Volume 88.7 fL (81-99); Mean Platelet Vol. 10.1 fl (6.2-12.0); Monocyte# 0.41 X10^3/uL; NRBC Flagged by Analyzer 0 % (0-5); Neutrophil # 2.63 X10^3/uL (2.7-7.7); Platelet Count 246 K/mm3 (150-450); RBC Distribution Width SD 48.4 fl (35.1-43.9); Red Blood Count 4.85 M/mm3 (4.2-5.4); White Blood Count 4.5 K/mm3 (4.4-11.0)
--- NOTE | 2024-11-10 15:45 | RAD_ITS ---
EXAM: XR Chest, 1 View CLINICAL INDICATION: SHORTNESS OF BREATH TECHNIQUE: Frontal view of the chest. COMPARISON: No relevant prior studies available. FINDINGS: LUNGS AND PLEURAL SPACES: See below. HEART: Cardiomegaly with mild congestion. MEDIASTINUM: Unremarkable. Normal mediastinal contour. BONES/JOINTS: Unremarkable. No acute fracture. RAD/Chest 1 View (Portable) IMPRESSION: Cardiomegaly with mild congestion. Reading Location: [facility]
[2024-11-10 15:56] LABS: Anion Gap 13 (5-15); BUN 24 mg/dL (4-19); BUN/Creat Ratio 19.8 RATIO (10-20); Calcium,Total 9.4 mg/dL (7.6-11.0); Carbon Dioxide 24.3 mmol/L (21.0-32.0); Chloride 103 mmol/L (98-108); Creatinine, Serum 1.21 mg/dL (0.70-1.20); EST Glomerular Filtration Rate 48 (>60); Estimated Creatinine Clearance 43.64 ml/min (50-250); Glucose 81 mg/dL (70-99); Potassium 4.7 mmol/L (3.3-5.1); Sodium Level 141 mmol/L (133-145); Troponin T High Sensitivity 19 ng/L (<=14)
[2024-11-10] MEDS: Acetaminophen/Codeine #3 Tablet 1 TABLET PO (15:59)
[2024-11-10] MEDS: MethylPREDNISolone 125 MG/2 ML Vial IV (15:59)
[2024-11-10 18:19] LABS: Pro- Brain NATRIURETIC PEPTIDE 392 pg/mL (<=900)
[2024-11-10] MEDS: Furosemide 40 MG/4 ML Vial IV (18:51)
--- NOTE | 2024-11-10 19:01 | PCM.HP.STD ---
HPI - General General Date of Admission: 11/10/24 Date of Service: 11/10/24 Chief Complaint: Worsening shortness of breath HPI Narrative CLEMENTINA HOOD, is a 69 F history of tobacco use, COPD, who presents to the ED with concerns regarding ongoing shortness of breath, generalized fatigue for the last 3 days. There is cough without expectoration or phlegm production. There is no fever. She continues to smoke about half pack a day and is trying to quit even further. She notes that she is getting tired with activities of daily living, does not endorse any orthopnea. PND is difficult to assess as she sleeps on a recliner because of significant lower back pain and is able to do so even now. No positional changes and no shortness of breath. While presentation in the ED her blood pressure was elevated, and her oxygen requirement was at her baseline 2 L/min. While she walked with the nurse she had significant tachypnea without changes and a saturation, given the concerns of acute on chronic respiratory failure she was being admitted to observation for further evaluation and management. WBC 4.5, hemoglobin 13.4, platelet count 246, sodium 141, potassium 4.7, BUN 24, creatinine 1.2 high-sensitivity troponin 19 NT proBNP 392 PFSH Medical History Kidney disease Bipolar disorder Anxiety Depression Osteoporosis Smoker Chest pain Hypertension Migraines COPD (chronic obstructive pulmonary disease) Kidney disease Home Medications ?Medication ?Instructions ?Recorded ?Last Taken ?Type albuterol sulfate 2.5 mg/3 mL 2.5 mg (3 mL) inhalation Q4H PRN 09/12/24 Unknown Rx (0.083 %) solution for nebulization #25 vials furosemide 40 mg tablet (Lasix) 40 mg PO DAILY #7 tabs 09/12/24 Unknown Rx fluticasone fur. 100 mcg-umeclid 1 inh inhalation DAILY 09/14/24 Unknown History 62.5 mcg-vilant 25 mcg inhalat.powder (Trelegy Ellipta) gabapentin 400 mg capsule 400 mg PO Q6H 09/14/24 Unknown History lisinopril 20 mg tablet 20 mg PO DAILY 09/14/24 Unknown History lorazepam 0.5 mg tablet 0.5 mg PO Q8H PRN PRN anxiety 09/14/24 Unknown History metformin 500 mg tablet 500 mg PO DAILY 09/14/24 Unknown History quetiapine 50 mg tablet 50 mg PO QHS 09/14/24 Unknown History ropinirole 2 mg tablet 2 mg PO QHS 09/14/24 Unknown History trazodone 150 mg tablet 150 mg PO QHS 09/14/24 Unknown History albuterol sulfate 90 mcg/actuation 2 puff inhalation Q6H PRN 09/16/24 Unknown Rx aerosol inhaler shortness of breath or wheezing #6.7 grams codeine 10 mg-guaifenesin 100 mg/5 10 ml PO Q6H PRN cough #237 mL 09/16/24 Unknown Rx mL oral liquid (Guaifenesin AC) albuterol sulfate 90 mcg/actuation 1 - 2 puff inhalation Q4H PRN PRN 10/14/24 Unknown Rx aerosol inhaler (Ventolin HFA) Wheezing #1 ea ipratropium 0.5 mg-albuterol 3 mg 3 ml inhalation Q6H PRN shortness 10/14/24 Unknown Rx (2.5 mg base)/3 mL nebulization of breath #90 mL soln Allergy/AdvReac Type Severity Reaction Status Date / Time No Known Allergies Allergy Verified 11/10/24 15:07 no significant family history Surgical History History of appendectomy no surgical history Social History household members: family housing: house Smoking Status: Current every day smoker tobacco type: cigarettes alcohol intake: never substance use type: does not use Vital Signs Vital Signs Vital Signs: 11/10/24 15:03 11/10/24 15:10 11/10/24 15:35 Temperature 98.3 F Temperature Source Oral Pulse Rate 73 71 Respiratory Rate 26 H 18 Respiratory Effort Short of Breath Labored Respiratory Pattern Normal Normal Blood Pressure 152/130 H Blood Pressure Mean 137 Pulse Ox 99 Oxygen Delivery Method Nasal Cannula Nasal Cannula Oxygen Flow Rate (L/min) 3 3 11/10/24 15:44 11/10/24 15:45 11/10/24 16:00 Temperature Temperature Source Pulse Rate 72 72 Respiratory Rate 26 H 20 H Respiratory Effort Respiratory Pattern Blood Pressure 127/112 H Blood Pressure Mean 119 Pulse Ox 99 99 Oxygen Delivery Method Nasal Cannula Oxygen Flow Rate (L/min) 3 11/10/24 16:00 11/10/24 16:07 11/10/24 16:15 Temperature 97.8 F Temperature Source Oral Pulse Rate 84 71 Respiratory Rate 31 H 18 Respiratory Effort Respiratory Pattern Blood Pressure 119/52 L 163/69 H 163/69 H Blood Pressure Mean 67 100 94 Pulse Ox 98 97 Oxygen Delivery Method Nasal Cannula Oxygen Flow Rate (L/min) 3 11/10/24 16:18 11/10/24 16:30 11/10/24 16:45 Temperature Temperature Source Pulse Rate 81 77 71 Respiratory Rate 25 H 16 15 Respiratory Effort Respiratory Pattern Blood Pressure 163/69 H 138/59 H 127/67 H Blood Pressure Mean 100 81 87 Pulse Ox 99 97 98 Oxygen Delivery Method Oxygen Flow Rate (L/min) 11/10/24 17:00 11/10/24 17:00 11/10/24 17:15 Temperature 98 F Temperature Source Oral Pulse Rate 76 72 77 Respiratory Rate 24 H 15 15 Respiratory Effort Respiratory Pattern Blood Pressure 158/70 H 148/63 H 158/70 H Blood Pressure Mean 99 86 95 Pulse Ox 97 97 98 Oxygen Delivery Method Oxygen Flow Rate (L/min) 11/10/24 17:30 11/10/24 17:45 11/10/24 18:00 Temperature 98.5 F Temperature Source Oral Pulse Rate 81 77 78 Respiratory Rate 13 16 22 H Respiratory Effort Respiratory Pattern Blood Pressure 153/76 H 153/76 H Blood Pressure Mean 96 101 Pulse Ox 97 95 98 Oxygen Delivery Method Nasal Cannula Oxygen Flow Rate (L/min) 3 11/10/24 18:00 11/10/24 18:05 Temperature 98.5 F Temperature Source Pulse Rate 82 88 Respiratory Rate 19 H 22 H Respiratory Effort Respiratory Pattern Blood Pressure 159/75 H Blood Pressure Mean 103 Pulse Ox 97 Oxygen Delivery Method Nasal Cannula Oxygen Flow Rate (L/min) 3 Weight Weight: 161 lb 2.526 oz Body Mass Index (BMI) 25.9 Physical Exam Const alert and oriented x3 Constitutional Narrative: Tired Orientation / Consciousness: lethargic HEENT normocephalic Eyes PERRL and EOMs intact bilaterally Neck no lymphadenopathy Resp Resp Narrative: Left infrascapular Rales present GI normal to inspection, nondistended, normoactive bowel sounds Auscultation: hyperactive bowel sounds Extremity Extremity Narrative: Bilateral pitting edema, some tenderness over her left ankle Neuro oriented x3 Sensorium / Orientation: awake, alert and oriented to person Psych affect normal Results Medical Records Data Attestation: I reviewed the patient's medical records Lab / Micro Data Attestation: I reviewed the patient's lab results. 11/10/24 14:50 11/10/24 14:50 Labs: Laboratory Results - last 24 hr 11/10/24 14:50: WBC 4.5, RBC 4.85, Hgb 13.4, Hct 43.0, MCV 88.7, MCH 27.6, MCHC 31.2 L, RDW Std Deviation 48.4 H, RDW Coeff of Magno 15.0 H, Plt Count 246, MPV 10.1, Immature Gran % (Auto) 0.200, Neut % (Auto) 58.0, Lymph % (Auto) 29.1, [place] % (Auto) 9.0, Eos % (Auto) 3.3, Baso % (Auto) 0.4, Absolute Neuts (auto) 2.6, Absolute Lymphs (auto) 1.32, Nucleated RBC % 0, Sodium 141, Potassium 4.7, Chloride 103, Carbon Dioxide 24.3, Anion Gap 13, BUN 24 H, Creatinine 1.21 H, Estim Creat Clear Calc 43.64 L, Est GFR (MDRD) Non-Af 48 L, BUN/Creatinine Ratio 19.8, Glucose 81, Calcium 9.4, Troponin T High Sens 19 H, NT pro BNP II 392 Micro: Microbiology 11/10/24 15:45 Mucosa - Nose SARS-CoV-2, Influenza & RSV (PCR) - Final Imaging Radiology Impression Chest X-Ray 11/10/24 15:45 IMPRESSION: Cardiomegaly with mild congestion. Reading Location: [facility] Assessment & Plan Assessment/Plan (1) Pneumonia: PLAN: Plan 69-year-old female with history of and will start management on those lines. And is noted to have localized Rales on examination. NT proBNP is normal, and oxygen requirement is at her baseline. I suspect community-acquired pneumonia versus viral pneumonia. # Acute on chronic respiratory failure # ?Community-acquired pneumonia -Started on azithromycin plus ceftriaxone -Continue oxygen monitor via nasal cannula to target 92 2-94% -Bronchopulmonary hygiene -Admit to [facility] for observation -If there is improvement can switch to oral antibiotics -Follow-up on the next troponin levels as the first 1 was mildly elevated -Continue home albuterol/ipratropium bromide -Follow-up on urine Legionella, nasal swabs for viral PCR #Congestive heart failure -Concerns regarding heart failure but clinically and lab findings are not consistent -Echocardiogram -Continue IV Lasix 40 mg daily -She was previously on Lasix 40 mg oral at home, will hold for now #Hypertension -Does not take any home medications -Restart lisinopril 20 mg as previously prescribed -Monitor during hospitalization #Nicotine use -Nicotine patches if needed #DVT prophylaxis -Lovenox subcu Duration of admission: Likely less than 2 days
--- NOTE | 2024-11-10 20:31 | CASEMGMT ---
Care Management Face to Face with patient for initial transition planning/care coordination assessment in the ED.? This senior technical writer introduced self and role at [facility]. Patient alert and oriented. Patient willing to participate in assessment and is able to answer all questions appropriately.? Care providers, pharmacy, and demographics verified. Admitting Diagnosis: pneumonia Other diagnosis history: kidney disease PCP: ?none Specialists: none Preferred Pharmacy: [facility] Insurance: [employer] Prescription Benefit: yes Living Will/HPOA: ?no LNOK: sister Living Arrangements: patient lives with a friend in a one story home.?? Patient is able to complete ADLS and IADL with difficulty. Transportation: no means of transportation DME: walker, blood pressure cuff, oxygen through [employer], wears continuously 3 liters HHC: none SNF/Rehab: none Community Resources: none Behavioral Health History: bipolar, anxiety and depression Patient goals: Patient wishes to discharge home. Patient denies any further needs or concerns at this time. Disposition Plan: admission to acute; RN CM/SW to follow for discharge planning needs that may arise. Patient was given [facility] provider list, information on [facility] transportation and gave permission for [facility] referral to be completed. Radha Talbot, DRIVERS' CASH CLERK, METALLURGICAL INSPECTOR
[2024-11-10] MEDS: traZODone 50 MG Tablet 150 MG PO (22:19)
[2024-11-10] MEDS: LORazepam 0.5 MG Tablet PO (22:19)
[2024-11-10] MEDS: Ceftriaxone 2 GM in 0.9% Normal Saline (50mL MB+) 50 ML IV (22:19)
[2024-11-10] MEDS: Lisinopril 20 MG Tablet PO (22:19)
[2024-11-10] MEDS: Gabapentin 400 MG Capsule PO ×2 (22:19→23:41)
[2024-11-10] MEDS: QUEtiapine 25 MG Tablet 50 MG PO (22:19)
[2024-11-10] MEDS: Pramipexole Di-HCl 1 MG Tablet PO (22:20)
[2024-11-10] MEDS: 0.9% Saline Lock 10 ML Syringe IV ×2 (22:21→23:42)
[2024-11-10] MEDS: Azithromycin 500 MG in 0.9% Normal Saline (250mL Bag) 250 ML 255 MG IV (23:13)
[2024-11-10] MEDS: Acetaminophen 325 MG Tablet 650 MG PO (23:13)
[2024-11-10] MEDS: 0.9% Normal Saline (100mL Bag) 100 ML 15 ML IV (23:18)
[2024-11-10] MEDS: Morphine 2 MG/ML Syringe IV (23:41)
[2024-11-11] VITALS (8 sets, daily range): BP systolic 131–160; BP diastolic 52–66; PULSE 51–77; RESP 16–20; TEMP 36.4–37.2; O2SAT 95–98; BMI 24.8
[2024-11-11 06:35] LABS: Absolute Lymphocyte Count 0.55 X10^3/uL (0.83-4.51); Absolute Neutrophil Count 1.7 X10^3/uL (2.0-7.7); Basophil# 0.01 X10^3/uL; Basophil% 0.4 % (0-1); Hematocrit 40.8 % (37-47); Hemoglobin 12.6 g/dL (12.0-15.0); Lymphocyte # 0.55 X10^3/ul (0.83-4.51); Lymphocyte % 22.8 % (19-41); Mean Corp Hgb Conc 30.9 g/dL (32-36); Mean Corpuscular Hgb 27.9 pg (27.0-32.0); Mean Corpuscular Volume 90.3 fL (81-99); Mean Platelet Vol. 10.1 fl (6.2-12.0); Monocyte# 0.11 X10^3/uL; Monocyte% 4.6 % (0-10); NRBC Flagged by Analyzer 0 % (0-5); Neutrophil # 1.73 X10^3/uL (2.7-7.7); Neutrophil % 71.8 % (47-70); POSITIVE DIFFERENTIAL YES; Platelet Count 217 K/mm3 (150-450); RBC Distribution Width CV 14.7 % (11.6-14.6); RBC Distribution Width SD 48.3 fl (35.1-43.9); Red Blood Count 4.52 M/mm3 (4.2-5.4); White Blood Count 2.4 K/mm3 (4.4-11.0)
[2024-11-11 06:50] LABS: International Normalized Ratio 0.9; Prothrombin Time (Protime)PT. 12.7 SECONDS (11.7-14.9)
--- NOTE | 2024-11-11 07:22 | PCM.PN.HOSP ---
Reason for Visit Reason for Visit: Diagnoses Pneumonia, unspecified organism (11/10/24) Subjective Subjective Patient still short of breath and coughing, feels somewhat generally unwell. Upon discussing with patient she moved here a month and a half ago and did not establish with any new doctors so she is out of some but not all of her medications, has not been using her Trelegy because she did run out of that Objective Data Objective Data Vital Signs: Vital Signs Temp Pulse Resp BP Pulse Ox O2 Del Method O2 Flow Rate 97.8 F 62 16 131/52 H 98 Nasal Cannula 3 11/11/24 03:10 11/11/24 03:10 11/11/24 03:10 11/11/24 03:10 11/11/24 03:10 11/11/24 03:10 11/11/24 03:10 Oxygen Flow Rate (L/min) 3 Oxygen Delivery Method Nasal Cannula Weight: 69.9 kg Body Mass Index (BMI) 24.8 Intake & Output: Intake and Output for Last 24 Hours 11/09/24 11/10/24 11/11/24 23:59 23:59 23:59 Intake Total 50 / 50 344.75 / 344.75 Output Total 750 / 750 Balance 50 / -500 -405.25 / -405.25 Lab / Micro Data 11/11/24 06:06 11/11/24 06:06 Labs: Laboratory Results - last 24 hr 11/10/24 14:50: WBC 4.5, RBC 4.85, Hgb 13.4, Hct 43.0, MCV 88.7, MCH 27.6, MCHC 31.2 L, RDW Std Deviation 48.4 H, RDW Coeff of Magno 15.0 H, Plt Count 246, MPV 10.1, Immature Gran % (Auto) 0.200, Neut % (Auto) 58.0, Lymph % (Auto) 29.1, [place] % (Auto) 9.0, Eos % (Auto) 3.3, Baso % (Auto) 0.4, Absolute Neuts (auto) 2.6, Absolute Lymphs (auto) 1.32, Nucleated RBC % 0, Sodium 141, Potassium 4.7, Chloride 103, Carbon Dioxide 24.3, Anion Gap 13, BUN 24 H, Creatinine 1.21 H, Estim Creat Clear Calc 43.64 L, Est GFR (MDRD) Non-Af 48 L, BUN/Creatinine Ratio 19.8, Glucose 81, Calcium 9.4, Troponin T High Sens 19 H, NT pro BNP II 392 11/11/24 06:06: WBC 2.4 L, RBC 4.52, Hgb 12.6, Hct 40.8, MCV 90.3, MCH 27.9, MCHC 30.9 L, RDW Std Deviation 48.3 H, RDW Coeff of Magno 14.7 H, Plt Count 217, MPV 10.1, Immature Gran % (Auto) 0.400, Neut % (Auto) 71.8 H, Lymph % (Auto) 22.8, [place] % (Auto) 4.6, Eos % (Auto) 0.0, Baso % (Auto) 0.4, Absolute Neuts (auto) 1.7 L, Absolute Lymphs (auto) 0.55 L, Nucleated RBC % 0, PT 12.7, INR 0.9 Micro: Microbiology 11/10/24 22:50 Mucosa - Nasopharyngeal Respiratory Panel (PCR) - Final 11/10/24 23:10 Nasal Secretion MRSA (PCR) - Final 11/10/24 22:47 Urine, Clean Catch Legionella Antigen - Final 11/10/24 15:45 Mucosa - Nose SARS-CoV-2, Influenza & RSV (PCR) - Final Radiography Diagnostic Testing: Radiology Impression Chest X-Ray 11/10/24 15:45 IMPRESSION: Cardiomegaly with mild congestion. Reading Location: [facility] Physical Exam Narrative General: Alert, oriented, no apparent distress HEENT: Atraumatic, normocephalic Eyes: Anicteric, normal conjunctiva, extraocular movements grossly intact Neck: Supple Respiratory: Slight increased respiratory effort, scattered wheezes Cardiovascular: Regular rate GI: Soft, nontender, nondistended Extremities: No edema Musculoskeletal: Moving all extremities Neuro: No overt focal neurological deficits Skin: No rashes appreciated Psych: Cooperative Assessment & Plan Assessment/Plan (1) COPD exacerbation: PLAN: Plan #Acute exacerbation of COPD on chronic hypoxic respiratory failure on 3 L home O2 -Admit to floor, continuous O2 monitoring -Chest x-ray: Queried some pulmonary congestion but did not note any discrete infiltrate -COVID negative, negative respiratory panel, sputum culture if able -O2 in place, wean as tolerated -IV methylprednisone -Scheduled DuoNebs, suspect part of patient's worsening respiratory status as she is not taking her Trelegy Ellipta at home as she ran out of it and she continues to smoke -Albuterol prn -Antibiotics: Patient's on Rocephin and azithromycin due to some concerns for possible overlap of community-acquired pneumonia, lower suspicion for this but will obtain culture if able and will continue at this time -Incentive spirometer -Mucinex # Chronic stage I diastolic dysfunction -Patient had chest x-ray that queried some mild pulmonary vascular congestion however BNP was normal and symptoms seem more consistent with COPD exacerbation -Daily weights and I's and O's -Last echo 09/15/2024 with EF of 75% and stage I diastolic dysfunction, RVSP estimated to be 51 mmHg -Patient received Lasix x 1 in the ED, do not think patient needs further Lasix at this time -Will also DC echo given normal BNP and higher suspicion for exacerbation of COPD especially given lack of using Trelegy and continued smoking # History of mood disorder NOS -Unclear if patient was taking any medications at home but on her home med list Seroquel was listed so this was continued, patient reports she was taking some of her medications but had run out of some # CKD stage III b -Appears to be at baseline -Avoid nephrotoxic agents -Daily BMPs # RLS and peripheral neuropathy -Continue ropinirole and gabapentin #Tobacco use -Advise cessation -Nicotine replacement available if desired #Hypertension -Patient had ran out of lisinopril, is hypertensive here so this was resumed #DVT ppx: Lovenox subcu Chana Staley MD Charges/Coding Visit Charges Inpatient E&M: 51840 Subs Hosp L2
[2024-11-11 08:33] LABS: Magnesium 2.2 mg/dL (1.5-2.2); Phosphorus 4.9 mg/dL (2.7-4.5); Thyroid Stim Hormone (TSH) 0.272 uIU/mL (0.300-4.200)
[2024-11-11] MEDS: guaiFENesin 1,200 MG Tablet 1200 MG PO ×2 (09:12→21:04)
[2024-11-11] MEDS: Methylprednisolone Sod Succ 40 MG/ML VIAL IV ×3 (09:12→21:05)
[2024-11-11] MEDS: Gabapentin 400 MG Capsule PO ×4 (09:17→21:04)
[2024-11-11 09:21] LABS: ALB/GLOB Ratio 1.3 RATIO (0.9-2.4); AST(SGOT) 19 U/L (<=31); Alanine Aminotransfer ALT/SGPT 8 U/L (<=34); Albumin, Serum 3.8 g/dL (3.4-4.8); Alkaline Phosphatase 101 U/L (35-104); Anion Gap 12 (5-15); BUN 21 mg/dL (4-19); BUN/Creat Ratio 19.3 RATIO (10-20); Bilirubin, Direct < 0.08 mg/dL (0.00-0.30); Calcium,Total 8.8 mg/dL (7.6-11.0); Carbon Dioxide 25.7 mmol/L (21.0-32.0); Chloride 101 mmol/L (98-108); Creatinine, Serum 1.08 mg/dL (0.70-1.20); EST Glomerular Filtration Rate 55 (>60); Estimated Creatinine Clearance 44.73 ml/min (50-250); Globulin 2.9 g/dL (2.2-4.2); Glucose 132 mg/dL (70-99); Potassium 4.8 mmol/L (3.3-5.1); Protein, Total 6.6 g/dL (5.9-8.4); Sodium Level 139 mmol/L (133-145); Total Bilirubin < 0.15 mg/dL (0.00-1.30)
[2024-11-11] MEDS: Enoxaparin 40 MG/0.4 ML Syringe SC (09:24)
[2024-11-11] MEDS: Lisinopril 20 MG Tablet PO (09:24)
[2024-11-11] MEDS: Ensure Plus High Protein 120 ML LIQUID PO ×3 (09:24→16:43)
[2024-11-11] MEDS: Nystatin Powder 15gm Bottle 1 APPLIC TOPICAL ×2 (11:04→21:04)
--- NOTE | 2024-11-11 11:45 | CASEMGMT ---
Social Work SW met with pt and completed Social Determinant of Health assessment. Pt does not have transportation and states because of the she hasn't established with a PCP. SW explained the [facility] Transportation program and provided PCP list with PCP's affiliated with [facility]. Pt choosing to establish with Dr. Villarreal or Joel and use the [facility] Van. SW updated RNCM. SW provided additional transportation resources at this time and pt is appreciative. Pt denies any other needs at this time. GLENIS Ferreira
--- NOTE | 2024-11-11 12:30 | CASEMGMT ---
Addendum entered by Kelsea Ryder Darren 11/11/24 13:17: Hospitalist is ok with pt checking her blood sugars daily if she would like. Placed BGM rx on chart with green sheet. Addendum entered by Kelsea Banks 11/11/24 13:07: Per hospitalist, pt does not need a BGM as she does not need to test blood sugars at home. Addendum entered by Kelsea Banks 11/11/24 12:56: Pt requesting a BGM. She is aware this Rx will be provided upon dc. Pt aware of where she can get this filled. Added to green sheet. Addendum entered by Kelsea Banks 11/11/24 12:50: Received confirmation that it is ok for pt to take portable tank from stock if pt needs upon dc. Addendum entered by Kelsea Banks 11/11/24 12:47: ÁNGEL SHAVER into pt room, pt lying in bed in no distress. Pt states she does not have transportation home and she only has $12 and could not get a taxi. Pt is aware that the [facility] Van does not run on the weekends. Pt states she will find someone to take her home should she be dc'd over the weekend. If she is not dc'd over the weekend RN CHHAYA will try to obtain the hospital van at [place]. Pt is aware of PCP appt set up and that the information will be on her dc instructions. Pt states she has portable tanks at home but she does not have anyone to bring it in. Pt currently is on oxygen with exertion only. Should pt qualify for oxygen at rest, she will need a tank to go home on. Email to [facility] to see if this could be taken from stock. Pt plans to dc home. Unable to set up HHC as pt does not have PCP. Pt denies any homegoing needs. Green sheet on chart for oxygen increase. Original Note: SW updated pt has chosen either or for PCP and would like to use the [facility] van for transport to the appt. TC to their office, scheduled appt with Dr. Villarreal on February 14 at 2pm. TC to [facility], scheduled turkey picker for this appt at 1:30pm. Placed info on dc instructions.
[2024-11-11] MEDS: Acetaminophen 325 MG Tablet 650 MG PO (14:11)
[2024-11-11] MEDS: LORazepam 0.5 MG Tablet PO ×2 (14:12→22:07)
[2024-11-11] MEDS: 0.9% Saline Lock 10 ML Syringe IV ×2 (14:12→21:08)
[2024-11-11] MEDS: Benzonatate 100 MG Capsule PO (14:12)
--- NOTE | 2024-11-11 15:32 | CASEMGMT ---
Met with patient to complete BRIDGES form. BRIDGES form explained to patient who voiced understanding and signed form. Original form placed in pt?s chart and copy provided to patient. Irlanda Olivas, Discharge Planning Asst
[2024-11-11] MEDS: Ipratropium/Albuterol Sulfate 3 ML AMPUL.NEB INHALATION ×2 (16:00→19:30)
[2024-11-11] MEDS: guaiFENesin 10 ML UDC (200MG/10ML) PO ×2 (16:40→21:04)
[2024-11-11] MEDS: Ceftriaxone 2 GM in 0.9% Normal Saline (50mL MB+) 50 ML IV (21:04)
[2024-11-11] MEDS: QUEtiapine 25 MG Tablet 50 MG PO (21:04)
[2024-11-11] MEDS: Pramipexole Di-HCl 1 MG Tablet PO (21:04)
[2024-11-11] MEDS: traZODone 50 MG Tablet 150 MG PO (21:04)
[2024-11-11] MEDS: 0.9% Normal Saline (100mL Bag) 100 ML 15 ML IV (22:05)
[2024-11-11] MEDS: Azithromycin 500 MG in 0.9% Normal Saline (250mL Bag) 250 ML 255 MG IV (22:05)
[2024-11-12 02:00] VITALS: BP 137/89; PULSE 62; RESP 18; TEMP 36.6; O2SAT 98
[2024-11-12] MEDS: guaiFENesin 10 ML UDC (200MG/10ML) PO ×3 (04:10→14:43)
[2024-11-12] MEDS: Methylprednisolone Sod Succ 40 MG/ML VIAL IV (05:08)
[2024-11-12] MEDS: 0.9% Saline Lock 10 ML Syringe IV (05:08)
[2024-11-12 07:17] LABS: Absolute Lymphocyte Count 0.86 X10^3/uL (0.83-4.51); Absolute Neutrophil Count 5.2 X10^3/uL (2.0-7.7); Hematocrit 43.7 % (37-47); Hemoglobin 13.4 g/dL (12.0-15.0); Lymphocyte # 0.86 X10^3/ul (0.83-4.51); Lymphocyte % 13.6 % (19-41); Mean Corp Hgb Conc 30.7 g/dL (32-36); Mean Corpuscular Hgb 27.6 pg (27.0-32.0); Mean Corpuscular Volume 90.1 fL (81-99); Monocyte# 0.24 X10^3/uL; Monocyte% 3.8 % (0-10); NRBC Flagged by Analyzer 0 % (0-5); Neutrophil # 5.21 X10^3/uL (2.7-7.7); Neutrophil % 82.4 % (47-70); Platelet Count 228 K/mm3 (150-450); RBC Distribution Width CV 14.9 % (11.6-14.6); RBC Distribution Width SD 49.9 fl (35.1-43.9); Red Blood Count 4.85 M/mm3 (4.2-5.4); White Blood Count 6.3 K/mm3 (4.4-11.0)
[2024-11-12] MEDS: Ipratropium/Albuterol Sulfate 3 ML AMPUL.NEB INHALATION ×2 (07:29→13:41)
[2024-11-12 07:30] VITALS: PULSE 63; RESP 20; O2SAT 94
[2024-11-12 08:42] LABS: Anion Gap 11 (5-15); BUN 28 mg/dL (4-19); BUN/Creat Ratio 26.2 RATIO (10-20); Calcium,Total 9.1 mg/dL (7.6-11.0); Carbon Dioxide 26.7 mmol/L (21.0-32.0); Chloride 101 mmol/L (98-108); Creatinine, Serum 1.07 mg/dL (0.70-1.20); EST Glomerular Filtration Rate 56 (>60); Estimated Creatinine Clearance 45.14 ml/min (50-250); Glucose 130 mg/dL (70-99); Sodium Level 139 mmol/L (133-145)
[2024-11-12] MEDS: Enoxaparin 40 MG/0.4 ML Syringe SC (10:08)
[2024-11-12] MEDS: guaiFENesin 1,200 MG Tablet 1200 MG PO (10:08)
[2024-11-12] MEDS: Gabapentin 400 MG Capsule PO ×2 (10:08→14:43)
[2024-11-12] MEDS: Nystatin Powder 15gm Bottle 1 APPLIC TOPICAL (10:08)
[2024-11-12] MEDS: Lisinopril 20 MG Tablet PO (10:09)
[2024-11-12] MEDS: Ensure Plus High Protein 120 ML LIQUID PO (10:15)
[2024-11-12 11:13] VITALS: O2SAT 93; O2SAT 97
--- NOTE | 2024-11-12 11:52 | DCINST_ITS ---
Discharge Instructions Diet Discharge Diet: - DC O2, CPAP, BIPAP needs Home O2 Discharge instructions: Yes Type of respiratory needs?: Oxygen Oxygen frequency: With Ambulation Oxygen liters per minute during Ambulation: 3 Dressing / Incision Discharge Activity: Use Walker Follow Up Care Test Results: Test results from this visit will be discussed in further detail at your follow- up appointment, if applicable. Discharge Plan Admission Admit Date/Time: 11/10/24 18:56 Primary Reason for Your Visit: Shortness of breath Attending Provider: Chana Staley Primary Care Provider: Care Physician,No Primary Consulting Providers: Gaurang Donahue Instructions Patient Instructions: Asthma and COPD, COPD Quit Smoking Additional Instructions / Restrictions: DISCHARGE INSTRUCTIONS PLEASE READ *Please take this with you to your next doctors appointment* -You will need 1 more dose of azithromycin which you will take this evening and will need to take 1 dose of Augmentin tonight and then twice daily for 2 more days -You will be discharged on a prednisone taper: -60 mg daily x3 days -50mg daily x3 days -40mg daily x3 days -30mg daily x3 days -20mg daily x3 days -10mg daily x3 days -It is advised that you use your nebulizers at home 3 times daily until you are able to renew your home inhalers -Please continue to use your 3 L of oxygen with ambulation -You would benefit from establishing with pulmonology on discharge, contact information below, advised to contact the office to schedule an establish care appointment -You have an appointment to schedule with a new primary care physician 02/14/2025, information below -You indicated that you ran out of refills on your Ativan, as we discussed only several days of this can be sent in as it is a controlled substance, these were sent to your pharmacy along with your antibiotics and steroids -It is strongly advised that he refrain from smoking as this will worsen your breathing over time -Please call your primary care provider's office upon discharge to schedule a hospital follow up within 1 week. -For any concerning signs or symptoms please call 911 or proceed to the nearest emergency department Discharge Orders/Prescriptions Prescriptions: New azithromycin 500 mg tablet 500 mg PO QHS 1 Days Qty: 1 0RF amoxicillin-pot clavulanate 875-125 mg tablet 1 tab PO BID 2 Days Qty: 5 0RF prednisone 20 mg Tablet See Taper PO BREAKFAST Qty: 32 0RF Taper: Prednisone Taper 60 mg WITH BREAKFAST for 3 Days and 0 Hour 50 mg WITH BREAKFAST for 3 Days and 0 Hour 40 mg WITH BREAKFAST for 3 Days and 0 Hour 30 mg WITH BREAKFAST for 3 Days and 0 Hour 20 mg WITH BREAKFAST for 3 Days and 0 Hour 10 mg WITH BREAKFAST for 3 Days and 0 Hour Continued albuterol sulfate 2.5 mg /3 mL (0.083 %) solution for nebulization 2.5 mg inhalation Q4H PRN Qty: 25 0RF Rx Instructions: Use q4 hours and PRN for wheezing albuterol sulfate [Ventolin HFA] 90 mcg/actuation HFA aerosol inhaler 1 - 2 puff inhalation Q4H PRN PRN (Reason: Wheezing) Qty: 1 0RF ipratropium-albuterol 0.5 mg-3 mg(2.5 mg base)/3 mL solution for nebulization 3 ml inhalation Q6H PRN (Reason: shortness of breath) Qty: 90 0RF lisinopril 20 mg tablet 20 mg PO DAILY 30 Days Qty: 30 0RF lorazepam 0.5 mg tablet 0.5 mg PO Q8H PRN PRN (Reason: anxiety) 3 Days Qty: 9 0RF Trelegy Ellipta 100-62.5-25 mcg blister with device 1 inh inhalation DAILY gabapentin 400 mg capsule 400 mg PO Q6H metformin 500 mg tablet 500 mg PO DAILY ropinirole 2 mg tablet 2 mg PO QHS trazodone 150 mg tablet 150 mg PO QHS quetiapine 50 mg tablet 50 mg PO QHS albuterol sulfate 90 mcg/actuation HFA aerosol inhaler 2 puff inhalation Q6H PRN (Reason: shortness of breath or wheezing) Qty: 6.7 0RF codeine-guaifenesin [Guaifenesin AC] 10-100 mg/5 mL liquid 10 ml PO Q6H PRN (Reason: cough) Qty: 237 1RF Rx Instructions: one or two teaspoons every six hours as needed for cough Discontinued furosemide [Lasix] 40 mg tablet 40 mg PO DAILY Qty: 7 0RF Referrals / Follow Up: Iris Villarreal MD [Med Staff - Active Staff] - 02/14/25 2:00 pm (The hospital van will pick you up at your home at 1:30pm for your appointment. ) Doug Swift, [Med Staff - Active Staff] - Care Physician,No Primary [Primary Care Provider] - Disposition Disposition (needs filled in before D/C Order can be placed): Home, Self Care
--- NOTE | 2024-11-12 12:14 | PCM.DC.SUM ---
Providers Date of Admission: 11/10/24 Date of Discharge: 11/12/24 Primary Care Physician: No Primary Care Phys Reason For Visit: SOB Diagnosis Discharge Diagnosis (1) COPD exacerbation: Status: Inactive Code(s): J44.1 - Chronic obstructive pulmonary disease with (acute) exacerbation Plan #Acute exacerbation of COPD on chronic hypoxic respiratory failure on 3 L home O2 w/ ambulation with concern for concomitant mild community-acquired pneumonia # Chronic stage I diastolic dysfunction # History of mood disorder NOS # CKD stage III b #Anxiety # RLS and peripheral neuropathy #Tobacco use #Hypertension Medications at Discharge Home Medications albuterol sulfate 2.5 mg/3 mL (0.083 %) solution for nebulization 2.5 mg (3 mL) inhalation Q4H PRN #25 vials 09/12/24 fluticasone fur. 100 mcg-umeclid 62.5 mcg-vilant 25 mcg inhalat.powder (Trelegy Ellipta) 1 inh inhalation DAILY 09/14/24 gabapentin 400 mg capsule 400 mg PO Q6H 09/14/24 metformin 500 mg tablet 500 mg PO DAILY 09/14/24 quetiapine 50 mg tablet 50 mg PO QHS 09/14/24 ropinirole 2 mg tablet 2 mg PO QHS 09/14/24 trazodone 150 mg tablet 150 mg PO QHS 09/14/24 albuterol sulfate 90 mcg/actuation aerosol inhaler 2 puff inhalation Q6H PRN shortness of breath or wheezing #6.7 grams 09/16/24 codeine 10 mg-guaifenesin 100 mg/5 mL oral liquid (Guaifenesin AC) 10 ml PO Q6H PRN cough #237 mL 09/16/24 albuterol sulfate 90 mcg/actuation aerosol inhaler (Ventolin HFA) 1 - 2 puff inhalation Q4H PRN PRN Wheezing #1 ea 10/14/24 ipratropium 0.5 mg-albuterol 3 mg (2.5 mg base)/3 mL nebulization soln 3 ml inhalation Q6H PRN shortness of breath #90 mL 10/14/24 amoxicillin 875 mg-potassium clavulanate 125 mg tablet 1 tab PO BID 2 days #5 tabs 11/12/24 azithromycin 500 mg tablet 500 mg PO QHS 1 day #1 TAB 03/15/25 lisinopril 20 mg tablet 20 mg PO DAILY 30 days #30 tabs 11/12/24 lorazepam 0.5 mg tablet 0.5 mg PO Q8H PRN PRN anxiety 3 days #9 tabs 11/12/24 prednisone 20 mg tablet See Taper PO BREAKFAST #32 tabs 11/12/24 Hospital Course Summary of Care Provided Minutes Spent on Discharge: 33 Hospital Course: #Acute exacerbation of COPD on chronic hypoxic respiratory failure on 2 L home O2 w/ ambulation with concern for concomitant mild community-acquired pneumonia # Chronic stage I diastolic dysfunction # History of mood disorder NOS # CKD stage III b #Anxiety # RLS and peripheral neuropathy #Tobacco use #Hypertension 69-year-old female history as above presented [facility] ED 11/10/2024 with worsening shortness of breath and was found to have a COPD exacerbation as well as concern for component of community-acquired pneumonia and she was placed on antibiotics. She has also been placed on steroids and breathing treatments for the COPD exacerbation. Patient improved on nebs and steroids, given she was started on antibiotics and is difficult to tell if this contributed to her improvement she was sent with antibiotics to complete course. Suspect patient COPD exacerbation was combination of smoking and that she was out of her Trelegy at home. Patient moved here couple months ago and does not have any doctors and reports she is out of some of her medications. Case management evaluated patient and set her up an appointment with a PCP. Patient improved during admission and on 11/12/2024 was stable for discharge, patient still has cough but reports breathing improving and she is comfortable going home. Patient reported she does still have most of her medications but lisinopril and lorazepam seem to be too that she ran out of, prescription for lisinopril sent, sent short-term prescription for lorazepam as needed. Advised patient use nebulizer scheduled until she can resume her home inhaler. Patient verbalized understanding and was up and ambulated and did well, did not need oxygen at rest and again felt stable for discharge home. Discharge instructions as followed: -You will need 1 more dose of azithromycin which you will take this evening and will need to take 1 dose of Augmentin tonight and then twice daily for 2 more days -You will be discharged on a prednisone taper: -60 mg daily x3 days -50mg daily x3 days -40mg daily x3 days -30mg daily x3 days -20mg daily x3 days -10mg daily x3 days -It is advised that you use your nebulizers at home 3 times daily until you are able to renew your home inhalers -Please continue to use your 2 L of oxygen with ambulation -You would benefit from establishing with pulmonology on discharge, contact information below, advised to contact the office to schedule an establish care appointment -You have an appointment to schedule with a new primary care physician 02/14/2025, information below -You indicated that you ran out of refills on your Ativan, as we discussed only several days of this can be sent in as it is a controlled substance, these were sent to your pharmacy along with your antibiotics and steroids -It is strongly advised that he refrain from smoking as this will worsen your breathing over time -Please call your primary care provider's office upon discharge to schedule a hospital follow up within 1 week. -For any concerning signs or symptoms please call 911 or proceed to the nearest emergency department Physical Exam Narrative General: Alert, oriented, no apparent distress HEENT: Atraumatic, normocephalic Eyes: Anicteric, normal conjunctiva, extraocular movements grossly intact Neck: Supple Respiratory: Improved respiratory effort, wheezes resolved Cardiovascular: Regular rate GI: Soft, nontender, nondistended Extremities: No edema Musculoskeletal: Moving all extremities Neuro: No overt focal neurological deficits Skin: No rashes appreciated Psych: Cooperative Medical Records Data Medical Nutrition Assessment Dietitian: Malnutrition Criteria Met Start: 11/11/24 14:33 Freq: Status: Active Protocol: Document 11/11/24 14:34 MELVA (Rec: 11/11/24 14:34 MELVA [id number]) Nutrition Malnutrition Evidence of Yes Malnutrition Exists Malnutrition (severe Acute Illness/Injury ): Evidenced By Suboptimal Energy Intake (Severe),Weight Loss (Severe) Clinical Problem Acute Disease or Injury Related Malnutrition Etiology related to acute illness and inadequate energy intake Signs/Symptoms as evidenced by po intake meeting < 75% of est nutritional needs and 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 Problem Recommendation Dietitian Will liberalize diet to Regular No Added Salt d/t signs Recommendations/ and symptoms of malnutrition Changes Will continue Ensure Plus High Protein w/ medpass for increased nutrition if consumed Weight / BMI Weight Weight: 69.9 kg Body Mass Index (BMI) 24.8 ABG / Lab / Microbiology Data 11/12/24 07:05 11/12/24 07:05 Laboratory: Laboratory Results - last 24 hr 11/12/24 07:05: WBC 6.3, RBC 4.85, Hgb 13.4, Hct 43.7, MCV 90.1, MCH 27.6, MCHC 30.7 L, RDW Std Deviation 49.9 H, RDW Coeff of Magno 14.9 H, Plt Count 228, MPV 10.0, Immature Gran % (Auto) 0.200, Neut % (Auto) 82.4 H, Lymph % (Auto) 13.6 L, [place] % (Auto) 3.8, Eos % (Auto) 0.0, Baso % (Auto) 0.0, Absolute Neuts (auto) 5.2, Absolute Lymphs (auto) 0.86, Nucleated RBC % 0, Sodium 139, Potassium 5.0, Chloride 101, Carbon Dioxide 26.7, Anion Gap 11, BUN 28 H, Creatinine 1.07, Estim Creat Clear Calc 45.14 L, Est GFR (MDRD) Non-Af 56 L, BUN/Creatinine Ratio 26.2 H, Glucose 130 H, Calcium 9.1 Microbiology: Microbiology 11/10/24 22:50 Mucosa - Nasopharyngeal Respiratory Panel (PCR) - Final 11/10/24 23:10 Nasal Secretion MRSA (PCR) - Final 11/10/24 22:47 Urine, Clean Catch Legionella Antigen - Final 11/10/24 15:45 Mucosa - Nose SARS-CoV-2, Influenza & RSV (PCR) - Final D/C Instructions Discharge Diet: - DC O2, CPAP, BIPAP Needs Home O2 Discharge instructions: Yes Type of respiratory needs?: Oxygen Oxygen frequency: With Ambulation Oxygen liters per minute during Ambulation: 2 DC home with Oxygen: Yes Home O2 MD Review: I have reviewed the oxygen testing, and the patient qualifies for home oxygen equipment and portability. The patient is mobile in the home and the community. Meaningful Use Info Meaningful Use Meaningful Use Diagnoses (Choose all that apply): None applicable Ischemic Stroke Statin Dosing Therapy Reference: STATIN DOSE THERAPY REFERENCE: * Patients > 75 years receive moderate or high dose statin therapy. * Patients 75 years or YOUNGER should receive HIGH intensity statin dose unless contraindicated. You will be required to document reason for non-treatment if statin daily dose does not meet guidelines. HIGH DOSE STATIN THERAPY DAILY Atorvastatin > than or = to 40 mg Rosuvastatin > than or = to 20 mg Amlodipine + Atorvastatin > than or = to 2.5/40 mg Ezetimibe + Simvastatin 10/80 mg Simvastatin 80mg Discharge Plan Admission Admit Date/Time: 11/10/24 18:56 Primary Reason for Your Visit: Shortness of breath Attending Provider: Chana Staley Primary Care Provider: Care Physician,No Primary Consulting Providers: Gaurang Donahue Instructions Patient Instructions: Asthma and COPD, COPD Quit Smoking Additional Instructions / Restrictions: DISCHARGE INSTRUCTIONS PLEASE READ *Please take this with you to your next doctors appointment* -You will need 1 more dose of azithromycin which you will take this evening and will need to take 1 dose of Augmentin tonight and then twice daily for 2 more days -You will be discharged on a prednisone taper: -60 mg daily x3 days -50mg daily x3 days -40mg daily x3 days -30mg daily x3 days -20mg daily x3 days -10mg daily x3 days -It is advised that you use your nebulizers at home 3 times daily until you are able to renew your home inhalers -Please continue to use your 2 L of oxygen with ambulation -You would benefit from establishing with pulmonology on discharge, contact information below, advised to contact the office to schedule an establish care appointment -You have an appointment to schedule with a new primary care physician 02/14/2025, information below -You indicated that you ran out of refills on your Ativan, as we discussed only several days of this can be sent in as it is a controlled substance, these were sent to your pharmacy along with your antibiotics and steroids -It is strongly advised that he refrain from smoking as this will worsen your breathing over time -Please call your primary care provider's office upon discharge to schedule a hospital follow up within 1 week. -For any concerning signs or symptoms please call 911 or proceed to the nearest emergency department Discharge Orders/Prescriptions Prescriptions: New azithromycin 500 mg tablet 500 mg PO QHS 1 Days Qty: 1 0RF amoxicillin-pot clavulanate 875-125 mg tablet 1 tab PO BID 2 Days Qty: 5 0RF prednisone 20 mg Tablet See Taper PO BREAKFAST Qty: 32 0RF Taper: Prednisone Taper 60 mg WITH BREAKFAST for 3 Days and 0 Hour 50 mg WITH BREAKFAST for 3 Days and 0 Hour 40 mg WITH BREAKFAST for 3 Days and 0 Hour 30 mg WITH BREAKFAST for 3 Days and 0 Hour 20 mg WITH BREAKFAST for 3 Days and 0 Hour 10 mg WITH BREAKFAST for 3 Days and 0 Hour Continued albuterol sulfate 2.5 mg /3 mL (0.083 %) solution for nebulization 2.5 mg inhalation Q4H PRN Qty: 25 0RF Rx Instructions: Use q4 hours and PRN for wheezing albuterol sulfate [Ventolin HFA] 90 mcg/actuation HFA aerosol inhaler 1 - 2 puff inhalation Q4H PRN PRN (Reason: Wheezing) Qty: 1 0RF ipratropium-albuterol 0.5 mg-3 mg(2.5 mg base)/3 mL solution for nebulization 3 ml inhalation Q6H PRN (Reason: shortness of breath) Qty: 90 0RF lisinopril 20 mg tablet 20 mg PO DAILY 30 Days Qty: 30 0RF lorazepam 0.5 mg tablet 0.5 mg PO Q8H PRN PRN (Reason: anxiety) 3 Days Qty: 9 0RF Trelegy Ellipta 100-62.5-25 mcg blister with device 1 inh inhalation DAILY gabapentin 400 mg capsule 400 mg PO Q6H metformin 500 mg tablet 500 mg PO DAILY ropinirole 2 mg tablet 2 mg PO QHS trazodone 150 mg tablet 150 mg PO QHS quetiapine 50 mg tablet 50 mg PO QHS albuterol sulfate 90 mcg/actuation HFA aerosol inhaler 2 puff inhalation Q6H PRN (Reason: shortness of breath or wheezing) Qty: 6.7 0RF codeine-guaifenesin [Guaifenesin AC] 10-100 mg/5 mL liquid 10 ml PO Q6H PRN (Reason: cough) Qty: 237 1RF Rx Instructions: one or two teaspoons every six hours as needed for cough Discontinued furosemide [Lasix] 40 mg tablet 40 mg PO DAILY Qty: 7 0RF Referrals / Follow Up: Iris Villarreal MD [Med Staff - Active Staff] - 02/14/25 2:00 pm (The hospital van will pick you up at your home at 1:30pm for your appointment. ) Doug Swift DO [Med Staff - Active Staff] - Care Physician,No Primary [Primary Care Provider] - Disposition Disposition (needs filled in before D/C Order can be placed): Home, Self Care Charges/Coding Visit Charges Inpatient E&M: 82788 Disch Hosp >30min
--- NOTE | 2024-11-12 12:30 | NURSING ---
While completing the o2 home documentation, pt o2 without oxygen was 96% RA. With ambulation, pt o2 was 87% RA. Oxygen at 3 L was applied. O2 increased to 93% NC on 3L.
--- NOTE | 2024-11-12 13:41 | PCM.DC ---
Discharge Instructions Diet Discharge Diet: - DC O2, CPAP, BIPAP needs Home O2 Discharge instructions: Yes Type of respiratory needs?: Oxygen Oxygen frequency: With Ambulation Oxygen liters per minute during Ambulation: 2 Follow Up Care Test Results: Test results from this visit will be discussed in further detail at your follow-up appointment, if applicable. Discharge Plan Admission Admit Date/Time: 11/10/24 18:56 Primary Reason for Your Visit: Shortness of breath Attending Provider: Chana Staley Primary Care Provider: Care Physician,No Primary Consulting Providers: Gaurang Donahue Instructions Patient Instructions: Asthma and COPD, COPD Quit Smoking Additional Instructions / Restrictions: DISCHARGE INSTRUCTIONS PLEASE READ *Please take this with you to your next doctors appointment* -You will need 1 more dose of azithromycin which you will take this evening and will need to take 1 dose of Augmentin tonight and then twice daily for 2 more days -You will be discharged on a prednisone taper: -60 mg daily x3 days -50mg daily x3 days -40mg daily x3 days -30mg daily x3 days -20mg daily x3 days -10mg daily x3 days -It is advised that you use your nebulizers at home 3 times daily until you are able to renew your home inhalers -Please continue to use your 2 L of oxygen with ambulation -You would benefit from establishing with pulmonology on discharge, contact information below, advised to contact the office to schedule an establish care appointment -You have an appointment to schedule with a new primary care physician 02/14/2025, information below -You indicated that you ran out of refills on your Ativan, as we discussed only several days of this can be sent in as it is a controlled substance, these were sent to your pharmacy along with your antibiotics and steroids -It is strongly advised that he refrain from smoking as this will worsen your breathing over time -Please call your primary care provider's office upon discharge to schedule a hospital follow up within 1 week. -For any concerning signs or symptoms please call 911 or proceed to the nearest emergency department Discharge Orders/Prescriptions Prescriptions: New azithromycin 500 mg tablet 500 mg PO QHS 1 Days Qty: 1 0RF amoxicillin-pot clavulanate 875-125 mg tablet 1 tab PO BID 2 Days Qty: 5 0RF prednisone 20 mg Tablet See Taper PO BREAKFAST Qty: 32 0RF Taper: Prednisone Taper 60 mg WITH BREAKFAST for 3 Days and 0 Hour 50 mg WITH BREAKFAST for 3 Days and 0 Hour 40 mg WITH BREAKFAST for 3 Days and 0 Hour 30 mg WITH BREAKFAST for 3 Days and 0 Hour 20 mg WITH BREAKFAST for 3 Days and 0 Hour 10 mg WITH BREAKFAST for 3 Days and 0 Hour Continued albuterol sulfate 2.5 mg /3 mL (0.083 %) solution for nebulization 2.5 mg inhalation Q4H PRN Qty: 25 0RF Rx Instructions: Use q4 hours and PRN for wheezing albuterol sulfate [Ventolin HFA] 90 mcg/actuation HFA aerosol inhaler 1 - 2 puff inhalation Q4H PRN PRN (Reason: Wheezing) Qty: 1 0RF ipratropium-albuterol 0.5 mg-3 mg(2.5 mg base)/3 mL solution for nebulization 3 ml inhalation Q6H PRN (Reason: shortness of breath) Qty: 90 0RF lisinopril 20 mg tablet 20 mg PO DAILY 30 Days Qty: 30 0RF lorazepam 0.5 mg tablet 0.5 mg PO Q8H PRN PRN (Reason: anxiety) 3 Days Qty: 9 0RF Trelegy Ellipta 100-62.5-25 mcg blister with device 1 inh inhalation DAILY gabapentin 400 mg capsule 400 mg PO Q6H metformin 500 mg tablet 500 mg PO DAILY ropinirole 2 mg tablet 2 mg PO QHS trazodone 150 mg tablet 150 mg PO QHS quetiapine 50 mg tablet 50 mg PO QHS albuterol sulfate 90 mcg/actuation HFA aerosol inhaler 2 puff inhalation Q6H PRN (Reason: shortness of breath or wheezing) Qty: 6.7 0RF codeine-guaifenesin [Guaifenesin AC] 10-100 mg/5 mL liquid 10 ml PO Q6H PRN (Reason: cough) Qty: 237 1RF Rx Instructions: one or two teaspoons every six hours as needed for cough Discontinued furosemide [Lasix] 40 mg tablet 40 mg PO DAILY Qty: 7 0RF Referrals / Follow Up: Iris Villarreal MD [Med Staff - Active Staff] - 02/14/25 2:00 pm (The hospital van will pick you up at your home at 1:30pm for your appointment. ) Doug Swift DO [Med Staff - Active Staff] - Care Physician,No Primary [Primary Care Provider] - Disposition Disposition (needs filled in before D/C Order can be placed): Home, Self Care
[2024-11-12 13:42] VITALS: PULSE 75; RESP 16; O2SAT 94
== END 2024-11-12 15:13 | disposition home or self-care (01) ==
LOC: ED 18:56 → MS3 19:39
PROVIDERS: Admitting Provider Internal Medicine; Emergency Provider Emergency Medicine; Visit Provider Internal Medicine
DX: J44.1 Chronic obstructive pulmonary disease with (acute) exacerbation (principal); J96.11 Chronic respiratory failure with hypoxia; I50.32 Chronic diastolic (congestive) heart failure; I13.0 Hypertensive heart and chronic kidney disease with heart failure and stage 1 through stage 4 chronic kidney disease, or unspecified chronic kidney disease; F31.9 Bipolar disorder, unspecified; E11.42 Type 2 diabetes mellitus with diabetic polyneuropathy; E11.22 Type 2 diabetes mellitus with diabetic chronic kidney disease; N18.32 Chronic kidney disease, stage 3b; F41.9 Anxiety disorder, unspecified; Z79.84 Long term (current) use of oral hypoglycemic drugs; F17.210 Nicotine dependence, cigarettes, uncomplicated; Z79.51 Long term (current) use of inhaled steroids; Z79.899 Other long term (current) drug therapy
CPT/HCPCS: 36415; 71045; 80048; 80053; 82248; 83735; 83880; 84100; 84443; 84484; 85025; 85610; 87449; 87631; 87633; 87641; 93005; 94640; 94668; 96365; 96366; 96367; 96372; 96375; 96376; 97802; 99221; 99285; 99406; A4216; G0378; J0696; J1940

== ENCOUNTER → 2024-12-21 | Outpatient (CLI) | payer MEDICARE, SELFPAY ==
[2024-12-21 11:15] LABS: Absolute Lymphocyte Count 2.89 X10^3/uL (0.83-4.51); Absolute Neutrophil Count 5.3 X10^3/uL (2.0-7.7); Basophil# 0.03 X10^3/uL; Basophil% 0.3 % (0-1); Eosinophil# 0.17 X10^3/uL; Eosinophils% 1.9 % (0-5); Hematocrit 41.7 % (37-47); Hemoglobin 12.6 g/dL (12.0-15.0); Lymphocyte # 2.89 X10^3/ul (0.83-4.51); Lymphocyte % 32.3 % (19-41); Mean Corp Hgb Conc 30.2 g/dL (32-36); Mean Corpuscular Hgb 27.9 pg (27.0-32.0); Mean Corpuscular Volume 92.3 fL (81-99); Monocyte# 0.53 X10^3/uL; Monocyte% 5.9 % (0-10); NRBC Flagged by Analyzer 0 % (0-5); Neutrophil # 5.31 X10^3/uL (2.7-7.7); Neutrophil % 59.3 % (47-70); Platelet Count 254 K/mm3 (150-450); RBC Distribution Width SD 50.9 fl (35.1-43.9); Red Blood Count 4.52 M/mm3 (4.2-5.4)
[2024-12-21 13:05] LABS: Cholesterol 211 mg/dL (<=200); Hepatitis C Antibody Nonreactive (Nonreactive); High Density Lipoprotein 57 mg/dL; Low Density Lipoprotein Calc. 103 mg/dL; Triglycerides 255 mg/dL; Very Low Density Lipoprotein 51 mg/dL (5-40); cholesterol:hdl ratio screen 3.73
[2024-12-21 13:07] LABS: ALB/GLOB Ratio 1.5 RATIO (0.9-2.4); AST(SGOT) 17 U/L (<=31); Alanine Aminotransfer ALT/SGPT 10 U/L (<=34); Albumin, Serum 3.7 g/dL (3.4-4.8); Alkaline Phosphatase 87 U/L (35-104); Anion Gap 10 (5-15); BUN 21 mg/dL (4-19); BUN/Creat Ratio 19.6 RATIO (10-20); Calcium,Total 8.7 mg/dL (7.6-11.0); Carbon Dioxide 26.9 mmol/L (21.0-32.0); Chloride 102 mmol/L (98-108); Creatinine, Serum 1.06 mg/dL (0.70-1.20); EST Glomerular Filtration Rate 56 (>60); Globulin 2.5 g/dL (2.2-4.2); Glucose 105 mg/dL (70-99); Potassium 5.2 mmol/L (3.3-5.1); Protein, Total 6.2 g/dL (5.9-8.4); Sodium Level 138 mmol/L (133-145); Total Bilirubin < 0.15 mg/dL (0.00-1.30); Vitamin D,25 Hydroxy 18.3 ng/mL (30-100)
== END | disposition home or self-care (01) ==
PROVIDERS: PCP Family Medicine Geriatric Medicine; Referring Provider Family Medicine Geriatric Medicine; Visit Provider Family Medicine Geriatric Medicine
DX: E78.5 Hyperlipidemia, unspecified (principal); E55.9 Vitamin D deficiency, unspecified; I10 Essential (primary) hypertension; Z13.89 Encounter for screening for other disorder
CPT/HCPCS: 36415; 80053; 80061; 82306; 84443; 85025; 86803

== ENCOUNTER → 2025-01-02 | Outpatient (CLI) | payer MEDICARE, SELFPAY ==
[2025-01-02 13:15] LABS: Anion Gap 11 (5-15); BUN 23 mg/dL (4-19); BUN/Creat Ratio 20.3 RATIO (10-20); Calcium,Total 8.9 mg/dL (7.6-11.0); Chloride 103 mmol/L (98-108); Creatinine, Serum 1.15 mg/dL (0.70-1.20); EST Glomerular Filtration Rate 51 (>60); Glucose 101 mg/dL (70-99); Potassium 4.7 mmol/L (3.3-5.1); Sodium Level 139 mmol/L (133-145)
== END | disposition home or self-care (01) ==
LOC: LAB 10:47
PROVIDERS: PCP Family Medicine Geriatric Medicine; Referring Provider Family Medicine Geriatric Medicine; Visit Provider Family Medicine Geriatric Medicine
DX: I10 Essential (primary) hypertension (principal)
CPT/HCPCS: 36415; 80048

== ENCOUNTER → 2025-03-10 | Outpatient (CLI) | payer MEDICARE, SELFPAY ==
[2025-03-10 11:32] LABS: Hematocrit 42.0 % (37-47); Hemoglobin 13.2 g/dL (12.0-15.0); Immature Granulocytes Count 0.010 X10^3/uL (0.0-0.0); Mean Corp Hgb Conc 31.4 g/dL (32-36); Mean Corpuscular Volume 87.1 fL (81-99); Mean Platelet Vol. 10.4 fl (6.2-12.0); NRBC Flagged by Analyzer 0 % (0-5); Platelet Count 168 K/mm3 (150-450); RBC Distribution Width CV 14.3 % (11.6-14.6); RBC Distribution Width SD 45.7 fl (35.1-43.9); Red Blood Count 4.82 M/mm3 (4.2-5.4); White Blood Count 6.8 K/mm3 (4.4-11.0)
[2025-03-10 12:40] LABS: Cholesterol 215 mg/dL (<=200); Low Density Lipoprotein Calc. 119 mg/dL; Triglycerides 216 mg/dL; Very Low Density Lipoprotein 43 mg/dL (5-40); Vitamin D,25 Hydroxy 22.4 ng/mL (30-100); cholesterol:hdl ratio screen 4.03
[2025-03-10 12:42] LABS: AST(SGOT) 29 U/L (<=31); Alanine Aminotransfer ALT/SGPT 12 U/L (<=34); Albumin, Serum 3.8 g/dL (3.4-4.8); Alkaline Phosphatase 86 U/L (35-104); Anion Gap 10 (5-15); BUN 22 mg/dL (4-19); BUN/Creat Ratio 19.1 RATIO (10-20); Calcium,Total 9.3 mg/dL (7.6-11.0); Carbon Dioxide 27.4 mmol/L (21.0-32.0); Chloride 105 mmol/L (98-108); Globulin 2.8 g/dL (2.2-4.2); Glucose 85 mg/dL (70-99); Potassium 4.9 mmol/L (3.3-5.1)
== END | disposition home or self-care (01) ==
LOC: POLAB3 11:15
PROVIDERS: PCP Family Medicine Geriatric Medicine; Visit Provider Family Medicine Geriatric Medicine
DX: I10 Essential (primary) hypertension (principal); E55.9 Vitamin D deficiency, unspecified; E78.5 Hyperlipidemia, unspecified
CPT/HCPCS: 36415; 80053; 80061; 82306; 84443; 85025

== ENCOUNTER → 2025-04-20 | Outpatient (CLI) | payer MEDICARE, SELFPAY ==
[2025-04-20 11:06] LABS: Hematocrit 45.3 % (37-47); Hemoglobin 14.2 g/dL (12.0-15.0); Immature Granulocytes Count 0.020 X10^3/uL (0.0-0.0); Mean Corp Hgb Conc 31.3 g/dL (32-36); Mean Corpuscular Volume 87.6 fL (81-99); Mean Platelet Vol. 10.5 fl (6.2-12.0); NRBC Flagged by Analyzer 0 % (0-5); Platelet Count 257 K/mm3 (150-450); RBC Distribution Width CV 13.8 % (11.6-14.6); RBC Distribution Width SD 44.8 fl (35.1-43.9); Red Blood Count 5.17 M/mm3 (4.2-5.4); White Blood Count 6.7 K/mm3 (4.4-11.0)
[2025-04-20 11:35] LABS: AST(SGOT) 22 U/L (<=31); Alanine Aminotransfer ALT/SGPT 8 U/L (<=34); Albumin, Serum 4.2 g/dL (3.4-4.8); Alkaline Phosphatase 77 U/L (35-104); Anion Gap 12 (5-15); BUN 18 mg/dL (4-19); BUN/Creat Ratio 15.8 RATIO (10-20); CPK Total, Creatine Kinase 103 U/L (24-195); Calcium,Total 9.6 mg/dL (7.6-11.0); Carbon Dioxide 26.1 mmol/L (21.0-32.0); Chloride 102 mmol/L (98-108); Globulin 3.1 g/dL (2.2-4.2); Glucose 94 mg/dL (70-99); Potassium 4.6 mmol/L (3.3-5.1); Troponin T High Sensitivity 28 ng/L (<=14)
[2025-04-20 18:36] LABS: Xtra Tube Kwok EXTRA TUBE
[2025-04-21 04:07] LABS: Myoglobin, Serum 76 ng/mL (25-58)
== END | disposition home or self-care (01) ==
LOC: POLAB3 10:33
PROVIDERS: PCP Family Medicine Geriatric Medicine; Visit Provider Family Medicine Geriatric Medicine
DX: I10 Essential (primary) hypertension (principal); N39.0 Urinary tract infection, site not specified; R63.4 Abnormal weight loss
CPT/HCPCS: 36415; 80053; 82550; 83874; 84484; 85025

== ENCOUNTER 2025-04-24 00:23 | Emergency (ER) | payer MEDICARE, SELFPAY ==
[2025-04-24] VITALS (7 sets, daily range): BP systolic 130–166; BP diastolic 66–128; PULSE 59–78; RESP 15–18; TEMP 36.6–36.7; O2SAT 97–100; BMI 25.2
--- NOTE | 2025-04-24 00:51 | CT_ITS ---
PROCEDURE: ABDOMEN/PELVIS W IV CONT ONLY 04/24/2025 REASON FOR EXAM: ABD PAIN TECHNIQUE: ABDOMEN/PELVIS W IV CONT ONLY Coronal and Sagittal reconstruction series were provided. CONTRAST: Isovue-350 VOLUME: 100 mL One or more dose reduction techniques were used (e.g., Automated exposure control, adjustment of the mA and/or kV according to patient size, use of iterative reconstruction technique. RADIATION DOSE SUMMARY: CTDlvol: 22.73 mGy DLP: 1119 mGycm COMPARISON: None. FINDINGS: Prior hysterectomy. Atherosclerotic, tortuous ectatic aorta and iliac arteries. Unremarkable iliac endovascular stents. Mild osteopenia. Mild diffuse spondylosis. Calcified atheromatous plaques of the aorta and iliac arteries. Gastroparesis/gastritis. Prior appendectomy. Mild hepatomegaly. Unremarkable bilateral hip metallic prosthesis. The visualized lung bases are unremarkable. Normal liver. Normal gallbladder and extrahepatic biliary system. Normal spleen. Normal pancreas. Normal bilateral adrenal glands. Normal size of the right kidney. There is no right renal mass. There are no right renal calculi. There is no right hydronephrosis. Normal visualized right ureter. Normal size of the left kidney. There is no left renal mass. There are no left renal calculi. There is no left hydronephrosis. Normal visualized left ureter. Normal small intestine. There is no demonstrated peritoneal fluid. Normal inferior vena cava. Normal retroperitoneum. Normal urinary bladder. There is no pelvic mass lesion or lymphadenopathy. There is no pelvic fluid. CT/Abdomen/Pelvis W IV Cont ONLY IMPRESSION: Prior hysterectomy. Atherosclerotic, tortuous ectatic aorta and iliac arteries. Unremarkable iliac endovascular stents. Mild osteopenia. Mild diffuse spondylosis. Calcified atheromatous plaques of the aorta and iliac arteries. Gastroparesis/gastritis. Prior appendectomy. Mild hepatomegaly. Unremarkable bilateral hip metallic prosthesis. Reading Location: [facility]
[2025-04-24] MEDS: 0.9% Normal Saline (1000mL) 1,000 ML 999 ML IV (01:03)
[2025-04-24 01:16] LABS: Hematocrit 40.6 % (37-47); Hemoglobin 13.2 g/dL (12.0-15.0); Immature Granulocytes Count 0.020 X10^3/uL (0.0-0.0); Mean Corp Hgb Conc 32.5 g/dL (32-36); Mean Corpuscular Volume 85.8 fL (81-99); Mean Platelet Vol. 11.2 fl (6.2-12.0); NRBC Flagged by Analyzer 0 % (0-5); Platelet Count 225 K/mm3 (150-450); RBC Distribution Width CV 14.0 % (11.6-14.6); RBC Distribution Width SD 43.8 fl (35.1-43.9); Red Blood Count 4.73 M/mm3 (4.2-5.4); White Blood Count 9.9 K/mm3 (4.4-11.0)
[2025-04-24 01:39] LABS: Lipase 40 U/L (13-75)
[2025-04-24 01:40] LABS: AST(SGOT) 26 U/L (<=31); Alanine Aminotransfer ALT/SGPT 10 U/L (<=34); Albumin, Serum 4.2 g/dL (3.4-4.8); Alkaline Phosphatase 75 U/L (35-104); Anion Gap 14 (5-15); BUN 16 mg/dL (4-19); BUN/Creat Ratio 12.2 RATIO (10-20); Bilirubin, Direct 0.14 mg/dL (0.00-0.30); Calcium,Total 9.2 mg/dL (7.6-11.0); Carbon Dioxide 22.9 mmol/L (21.0-32.0); Chloride 104 mmol/L (98-108); Estimated Creatinine Clearance 41.11 ml/min (50-250); Globulin 2.8 g/dL (2.2-4.2); Glucose 107 mg/dL (70-99); Potassium 3.6 mmol/L (3.3-5.1)
--- OUTSIDE RECORDS SUMMARY | 2025-04-24 01:48 | XMS RPT_ITS | CCD ---
Author Organization [facility] Care Team Providers Care Mold Cooler Name Role Phone Dr. Wilver Gilbert DO Attending Provider [phone] Dr. Wilver Gilbert DO Emergency Provider Care Physician, No Primary Primary Care Provider Unavailable Stephani MCGARRY, Dr. Javier Adames Attending Provider Dr. Wilver Gilbert DO Referring Provider Dr. Melquiades Macdonald DO Referring Provider Dr. Melquiades Macdonald DO Emergency Provider Dr. Gladis Luna DO Admit Provider Dr. Gladis Luna DO Other Provider Dr. Karthik Rodrigues DO Attending Provider Dr. Reema Campuzano MD Attending Provider Dr. Gladis Luna DO Referring Provider Dr. Karthik Rodrigues DO Other Provider Pako Fink MD Attending Provider Pako Fink MD Emergency Provider Dr. Bennie Dorsey DO Emergency Provider Godfrey MCGARRY, Dr. Merlos Admit Provider Unavailab yannick Donahue MD, Dr. Merlos Attending Provider Ileana Donahue MD, Dr. Merlos Other Provider Unavailab Tu MCGARRY, Dr. Zayas Attending Provider Godfrey MCGARRY, Dr. Merlos Attending Provider Ileana Staley MD, Dr. Zayas Other Provider Martin MCGARRY, Dr. Daniele Lunsford Primary Care Provider Martin MCGARRY, Dr. Daniele Lunsford Attending Provider Martin MCGARRY, Dr. Daniele Lunsford Referring Provider Martin, Daniele Chi Primary Care Unavailable Martin, Daniele Chi Attending Unavailable Martin, Daniele Chi Primary Care Unavailable Martin, Daniele Chi Referring Unavailable Martin, Daniele Chi Attending Unavailable Reema Campuzano Attending Unavailable Care Physician, No Primary Primary Care Unava ilable Care Physician, No Primary Primary Care Unava ilable Care Physician, No Primary Primary Care Unava ilable Rosa Donahueintya Attending Unavailable Care Physician, No Primary Primary Care Unava ilable Macdonald, Melquiades Referring Unavailable Gladis Luna Consulting Unavailable Gladis Luna Admitting Unavailable Karthik Rodrigues Attending Unavailable Karthik Rodrigues Consulting Unavailable Gladis Luna Attending Unavailable Godfrey, Achintya Consulting Unavailable Godfrey, Achintya Admitting Unavailable Chana Staley Attending Unavailable Care Physician, No Primary Primary Care Unava ilable Chana Staley Consulting Unavailable Martin, Daniele Chi Primary Care Unavailable Martin, Daniele Chi Referring Unavailable Martin, Daniele Chi Attending Unavailable Care Physician, No Primary Primary Care Unava ilable Pako Fink Attending Unavailable Martin, Daniele Chi Primary Care Unavailable Martin, Daniele Chi Attending Unavailable Care Physician, No Primary Primary Care Unava ilable Chana Staley Attending Unavailable Godfrey, Achintya Consulting Unavailable Godfrey, Achintya Admitting Unavailable Macdonald, Melquiades Referring Unavailable Care Physician, No Primary Primary Care Unava ilable Gladis Luna Admitting Unavailable Gladis Luna Consulting Unavailable Karthik Rodrigues Attending Unavailable Martin, Daniele Chi Primary Care Unavailable Martin, Daniele Chi Attending Unavailable Wilver Gilbert Attending Unavailable Care Physician, No Primary Primary Care Unava ilable Medications Current Medications Medication Drug Class(es) Dates Sig (Normalized) Sig (Original) [id number] 200 actuat albuterol 0.09 mg/actuat metered dose inhaler (15 sources) beta2-Adrenergic Agonist Start: 10-14-2024 Albuterol Sulfate (Ventolin Hfa) 90 mcg/actuation HFA aerosol inhaler Active 1 - 2 NMA INHALATION EVERY 4 HOURS NEEDED as needed for Wheezing October 14, 2024 1:00am Start: 09-16-2024 Albuterol Sulf ate 90 mcg/actuation HFA aerosol inhaler Active 2 NMA INHALATION EVERY 6 HOURS as needed for shortness of breath or wheezing 6.7 0 September 16, 2024 1:00am Start: 09-12-2024 take 2.5 mg by inhal ation every four hours as needed for wheezing Albuterol Sulfate 2.5 mg /3 mL (0.083 %) solution for nebulization Active 2.5 mg INHALATION EVERY 4 HOURS NEEDED 25 0 September 12, 2024 1:00am Use q4 hours and PRN for wheezing albuterol 0.833 mg/ml / ipratropium bromide 0.167 mg/ml inhalation solution (5 sources) Anticholinergic, beta2-Adrenergic Agonist Start: 10-14-2024 take 1 mL by inhalation every six hours as needed Ipratropium-Albuterol 0.5 mg-3 mg(2.5 mg base)/3 mL solution for nebulization Active 3 mL INHALATION EVERY 6 HOURS as needed for shortness of breath 90 0 October 14, 2024 1:00am amoxicillin 875 mg / clavulanate 125 mg oral tablet (4 sources) Penicillin-class Antibacterial Start: 11-12-2024 Amoxicillin-Pot Clavulanate 875-125 mg tablet Active 1 {tbl} PO TWICE A DAY 5 2 November 12, 2024 12:00am azithromycin 500 mg oral tablet (9 sources) Macrolide Antimicrobial Start: 11-12-2024 take 1 tablet by mouth at bedtime Azithromycin 500 mg tablet Active 500 mg PO AT BEDTIME 1 1 November 12, 2024 12:00am Start: 09-12-2024 End: 09-16-2024 take 1 tablet by mouth once daily Azithromycin 250 mg tablet Discontinued 250 mg PO DAILY 4 September 12, 2024 1:00am September 16, 2024 3:06pm codeine phosphate 2 mg/ml / guaiFENesin 20 mg/ml oral solution (5 sources) Opioid Agonist Start: 09-16-2024 Codeine-Guaifenesin (Guaifenesin Ac) 10-100 mg/5 mL liquid Active 10 mL PO EVERY 6 HOURS as needed for cough 237 September 16, 2024 5:25pm one or two teaspoons every six hours as needed for cough Fluticasone-Umecli din-Vilanter (5 sources) Anticholinergic, Corticosteroid, beta2-Adrenergic Agonist Start: 09-14-2024 Wnniggfvdip-Iatjgauym-P ilanter (Trelegy Ellipta) 100-62.5-25 mcg blister with device Active 1 NMA INHALATION DAILY September 14, 2024 1:00am gabapentin 400 mg oral capsule (5 sources) Anti-epileptic Agent Start: 09-14-2024 take 1 capsule by mouth every six hours Gabapentin 400 mg capsule Active 400 mg PO EVERY 6 HOURS September 14, 2024 1:00am lisinopril 20 mg oral tablet (9 sources) Angiotensin Converting Enzyme Inhibitor Start: 09-14-2024 End: 11-12-2024 take 1 tablet by mouth once daily Lisinopril 20 mg tablet Active 20 mg PO DAILY 30 30 0 November 12, 2024 12:12pm LORazepam 0.5 mg oral tablet (9 sources) Benzodiazepine Start: 09-14-2024 End: 11-12-2024 take 1 tablet by mouth every eight hours as needed for anxiety Lorazepam 0.5 mg tablet Active 0.5 mg PO EVERY 8 HOURS NEEDED as needed for anxiety 9 3 0 November 12, 2024 12:12pm metFORMIN hydrochloride 500 mg oral tablet (5 sources) Biguanide Start: 09-14-2024 take 1 tablet by mouth once daily Metformin 500 mg tablet Active 500 mg PO DAILY September 14, 2024 1:00am predniSONE 20 mg oral tablet (20 sources) Start: 11-12-2024 Prednisone 20 mg Tablet Active 0 mg PO WITH BREAKFAST 32 0 November 12, 2024 12:00am taper instructions on discharge instructions Please contact the information source for Taper Schedule details. Start: 10-14-2024 End: 11-10-2024 take 2 tablets by mouth once daily Prednisone 20 mg tablet Discontinued 40 mg PO DAILY 14 7 0 October 14, 2024 1:00am November 10, 2024 3:08pm Start: 09-16-2024 End: 11-10-2024 Prednisone 20 mg tablet Disc ontinued 20 mg PO DAILY 10 0 September 16, 2024 1:00am November 10, 2024 3:08pm 1 daily for 10 days then stop the medication Start: 09-14-2024 End: 09-16-2024 take 3 tablets by mouth every eight hours Prednisone 20 mg tablet Discontinued 60 mg PO EVERY 8 HOURS September 14, 2024 1:00am September 16, 2024 3:09pm Start: 09-12-2024 End: 09-14-2024 take 3 tablets by mouth once daily Prednisone 20 mg tablet Discontinued 60 mg PO DAILY 12 September 12, 2024 1:00am September 14, 2024 2:52pm QUEtiapine 50 mg oral tablet (5 sources) Atypical Antipsychotic Start: 09-14-2024 take 1 tablet by mouth at bedtime Quetiapine 50 mg tablet Active 50 mg PO AT BEDTIME September 14, 2024 1:00am rOPINIRole 2 mg oral tablet (5 sources) Nonergot Dopamine Agonist Start: 09-14-2024 take 1 tablet by mouth at bedtime Ropinirole 2 mg tablet Active 2 mg PO AT BEDTIME September 14, 2024 1:00am traZODone hydrochloride 150 mg oral tablet (5 sources) Serotonin Reuptake Inhibitor Start: 09-14-2024 take 1 tablet by mouth at bedtime Trazodone 150 mg tablet Active 150 mg PO AT BEDTIME September 14, 2024 1:00am Completed/Discontinued Medications Medication Drug Class(es) Dates Sig (Normalized) Sig (Original) furosemide 40 mg oral tablet (5 sources) Loop Diuretic Start: 09-12-2024 End: 11-12-2024 take 1 tablet by mouth once daily Furosemide (Lasix) 40 mg tablet Discontinued 40 mg PO DAILY 7 September 12, 2024 1:00am November 12, 2024 12:11pm 24 hr nicotine 0.583 mg/hr transdermal system (5 sources) Cholinergic Nicotinic Agonist Start: 09-16-2024 End: 11-10-2024 apply 1 dose transdermal route every twenty-four hours Nicotine 14 mg/24 hr Patch 24 Hour Discontinued 14 mg TD DAILY 30 September 16, 2024 1:00am November 10, 2024 3:08pm traMADol hydrochloride 100 mg oral tablet (10 sources) Opioid Agonist Start: 09-16-2024 End: 11-10-2024 Tramadol 100 mg tablet Discontinued 100 mg PO EVERY 6 HOURS as needed for pain 28 0 September 16, 2024 1:00am November 10, 2024 3:08pm May use for headache, may take with 650 mg of Tylenol if desired Start: 09-14-2024 End: 09-16-2024 take 1 tablet by mouth every eight hours as needed for pain Tramadol 50 mg tablet Discontinued 50 mg PO EVERY 8 HOURS NEEDED as needed for pain September 14, 2024 1:00am September 16, 2024 3:10pm Problems Active Problems Problem Classification Problem Date Documented Da te Episodic/Chronic Chronic obstructive pulmonary disease and bronchiectasis (19 sources) Acute exacerbation of chronic obstructive airways disease; Translations: [Chronic obstructive pulmonary disease with (acute) exacerbation] Onset: 10-03-2024 09-20-2024 Chronic Diseases of white blood cells (10 sources) Leukocytosis; Translations: [Elevated white blood cell count, unspecified] Onset: 09-17-2024 09-20-2024 Chronic Disorders of lipid metabolism (1 source) Hyperlipidemia, unspecified; Translations: [Hyperlipidemia, unspecified] Onset: 12-26-2024 Chronic Essential hypertension (2 sources) Essential (primary) hypertension; Translations: [Essential (primary) hypertension] Onset: 03-16-2025 Chronic Nonspecific chest pain (5 sources) Chest pain; Translations: [Chest pain, unspecified] 10-22-2024 Episodic Other lower respiratory disease (5 sources) Dyspnea; Translations: [Shortness of breath] 10-22-2024 Episodic Other lower respiratory disease (9 sources) Hypoxia; Translations: [Hypoxemia] 09-20-2024 Episodic Other nutritional; endocrine; and metabolic disorders (1 source) Abnormal weight loss; Translations: [Abnormal weight loss] Onset: 04-20-2025 Episodic Residual codes; unclassified (9 sources) Peripheral edema; Translations: [Localized edema] 09-20-2024 Episodic Unclassified (4 sources) Call for an appointment Unclassified (3 sources) The hospital van will pick you up at your home at 1:30pm for your appointment. Urinary tract infections (1 source) Urinary tract infection, site not specified; Translations: [Urinary tract infection, site not specified] Onset: 04-20-2025 Episodic Past or Other Problems Problem Classification Problem Date Documented Da te Episodic/Chronic Other lower respiratory disease (1 source) Shortness of breath; Translations: [Shortness of breath] Onset: 11-23-2024 Episodic Other lower respiratory disease (1 source) Hypoxemia; Translations: [Hypoxemia] Onset: 09-17-2024 Episodic Pneumonia (except that caused by tuberculosis or sexually transmitted disease) (10 sources) Pneumonia; Translations: [Pneumonia, unspecified organism] Onset: 11-12-2024 11-10-2024 Episodic Residual codes; unclassified (1 source) Localized edema; Translations: [Localized edema] Onset: 09-17-2024 Episodic Viral infection (10 sources) Respiratory syncytial virus infection; Translations: [Other specified viral diseases] Onset: 09-17-2024 09-20-2024 Episodic Results Test Name Value Interpretation Reference Range Facility Myoglobin, Serumon Myoglobin, Ser 76 ng/mL High 25-58 [facility] Comment on above: Result Comment: Perf ormed at: [facility] [id number] Swatch Paster: Vitaly Aguilera PhD, Phone: [phone] Performed By: #### L [id number] #### [facility] [address] [facility] [place], [address] CBC W/Diff, Automatedon 04-01 Absolute Lymph 1.66 X10 3/uL Normal 0.83-4.51 [facility] Comment on above: Performed By: #### L [id number] #### [facility] [address] [facility] [place], [address] Absolute Neut 4.5 X10 3/uL Normal 2.0-7.7 [facility] Comment on above: Performed By: #### L [id number] #### [facility] [address] [facility] [place], [address] Basophils/100 WBC (Bld) 0.7 % Normal 0-1 [facility] Comment on above: Performed By: #### [id number] #### [facility] [address] [place], [address] Eosinophils/100 WBC (Bld) 2.1 % Normal 0-5 [facility] Comment on above: Performed By: #### [id number] #### [facility] [address] [place], [address] Erythrocyte distribution width (RBC) [Ratio] 13.8 % Normal 11.6-14.6 [facility] Comment on above: Performed By: #### L [id number] #### [facility] [address] [place], [address] Hematocrit (Bld) [Volume fraction] 45.3 % Normal 37-47 [facility] Comment on above: Performed By: #### L [id number] #### [facility] [address] [place], [address] Hemoglobin (Bld) [Mass/Vol] 14.2 g/dL Normal 12.0-15.0 [facility] Comment on above: Performed By: #### L [id number] #### [facility] [address] [place], [address] IG% 0.300 Normal 0.0-0.9 [facility] Comment on above: Result Comment: IG% - Immature Granulocytes (promyelocytes, myelocytes and metamyelocytes) > 1% indicates that a LEFT SHIFT is Present. Performed By: #### L [id number] #### [facility] [address] [place], [address] Lymphocytes/100 WBC (Bld) 24.7 % Normal 19-41 [facility] Comment on above: Performed By: #### L [id number] #### [facility] [address] [place], [address] MCH (RBC) [Entitic mass] 27.5 pg Normal 27.0-32.0 [facility] Comment on above: Performed By: #### [id number] #### [facility] [address] [place], [address] MCHC (RBC) [Mass/Vol] 31.3 g/dL Low 32-36 [facility] Comment on above: Performed By: #### L [id number] #### [facility] [address] [place], [address] MCV (RBC) [Entitic vol] 87.6 fL Normal 81-[address] [facility] Comment on above: Performed By: #### L [id number] #### [facility] [address] [place], [address] Monocytes/100 WBC (Bld) 4.9 % Normal 0-[address] [facility] Comment on above: Performed By: #### L [id number] #### [facility] Laboratory [facility] [place], [address] Neutrophils/100 WBC (Bld) 67.3 % Normal 47-70 [facility] Comment on above: Performed By: #### L [id number] #### [facility] Laboratory [facility] [place], [address] Nucleated RBC (Bld) [#/Vol] 0 10*3/uL Normal 0-5 [facility] Comment on above: Performed By: #### L [id number] #### [facility] [address] [place], [address] Platelet mean volume (Bld) [Entitic vol] 10.5 fL Normal 6.2-12.0 [facility] Comment on above: Performed By: #### L [id number] #### [facility] [address] [place], [address] Platelets (Bld) [#/Vol] 257 10*3/uL Normal 150-450 [facility] Comment on above: Performed By: #### L [id number] #### [facility] [address] [place], [address] RBC (Bld) [#/Vol] 5.17 10*6/uL Normal 4.2-5.4 [facility] Comment on above: Performed By: #### L [id number] #### [facility] [address] [place], [address] RDW SD 44.8 fl High 35.1-43.9 [facility] Comment on above: Performed By: #### L [id number] #### [facility] [address] [place], [address] WBC (Bld) [#/Vol] 6.7 10*3/uL Normal 4.4-11.0 [facility] Comment on above: Performed By: #### L [id number] #### [facility] [address] [place], [address] CPK Total, Creatine Kinaseon 04-20-2025 CPK TOTAL 103 U/L Normal 24-195 [facility] Comment on above: Performed By: #### L [id number] #### [facility] [address] [place], [address] Comprehensive Metabolic Prof ilon 04-20-2025 Albumin [Mass/Vol] 4.2 g/dL Normal 3.4-4.8 [facility] Comment on above: Performed By: #### L [id number] #### [facility] [address] [place], [address] Albumin/Globulin [Mass ratio] 1.4 {ratio} Normal 0.9-2.4 [facility] Comment on above: Performed By: #### L [id number] #### [facility] [address] [place], [address] ALK PHOS 77 U/L Normal 35-104 [facility] Comment on above: Performed By: #### L [id number] #### [facility] [address] [place], [address] ALT [Catalytic activity/Vol] 8 U/L Normal <=34 [facility] Comment on above: Performed By: #### L [id number] #### [facility] [address] [place], [address] AST [Catalytic activity/Vol] 22 U/L Normal <=31 [facility] Comment on above: Performed By: #### L [id number] #### [facility] [address] [place], [address] Bilirubin [Mass/Vol] 0.33 mg/dL Normal 0.00-1.30 [facility] Comment on above: Performed By: #### L [id number] #### [facility] [address] [place], [address] BUN/CRE 15.8 RATIO Normal 10-20 [facility] Comment on above: Performed By: #### L [id number] #### [facility] [address] [place], [address] Calcium [Mass/Vol] 9.6 mg/dL Normal 7.6-11.0 [facility] Comment on above: Performed By: #### L [id number] #### [facility] [address] [place], [address] Chloride [Moles/Vol] 102 mmol/L Normal 98-108 [facility] Comment on above: Performed By: #### L [id number] #### [facility] [address] [place], [address] CO2 [Moles/Vol] 26.1 mmol/L Normal 21.0-32.0 [facility] Comment on above: Performed By: #### L [id number] #### [facility] [address] [place], [address] Creatinine [Mass/Vol] 1.11 mg/dL Normal 0.70-1.20 [facility] Comment on above: Performed By: #### L [id number] #### [facility] [address] [place], [address] GAP 12 Normal 5-15 [facility] Comment on above: Performed By: #### L [id number] #### [facility] [address] [place], [address] GFR/1.73 sq M.predicted among non-blacks MDRD (S/P/Bld) [Vol rate/Area] 53 mL/min/{1.73_m2} Low >60 [facility] Comment on above: Result Comment: mL/m in/1.73m2 CKD-EPI Creatinine Equation (2020) Performed By: #### L [id number] #### [facility] [address] [place], [address] Globulin (S) [Mass/Vol] 3.1 g/dL Normal 2.2-4.[address] [facility] Comment on above: Performed By: #### L [id number] #### [facility] [address] [place], [address] Glucose [Mass/Vol] 94 mg/dL Normal 70-99 [facility] Comment on above: Performed By: #### L [id number] #### [facility] [address] [place], [address] Potassium [Moles/Vol] 4.6 mmol/L Normal 3.3-5.1 [facility] Comment on above: Performed By: #### L [id number] #### [facility] [address] [place], [address] Sodium [Moles/Vol] 140 mmol/L Normal 133-145 [facility] Comment on above: Performed By: #### L [id number] #### [facility] [address] [place], [address] T PROT 7.4 g/dL Normal 5.9-8.4 [facility] Comment on above: Performed By: #### L [id number] #### [facility] [address] [place], [place], [address] Urea nitrogen [Mass/Vol] 18 mg/dL Normal 4-19 [facility] Comment on above: Performed By: #### L [id number] #### [facility] [address] [place], [address] [id number] 04-20-2025 Trop T High Sen 28 ng/L High <=14 [facility] Comment on above: Performed By: #### L [id number] #### [facility] [address] [place], [address] Absolute lymphocyte countOrd ered By: Danilee Salazar on 03-10-2025 Lymphocytes Auto (Unsp spec) [#/Vol] 2.12 10*3/uL 0.83-4.51 [facility] Absolute neutrophil countOrd ered By: Daniele Salazar on 03-10-2025 Neutrophils (Bld) [#/Vol] 3.9 10*3/uL 2.0-7.7 [facility] Anion gap in Serum or Plasma Ordered By: Daniele Salazar on 03-10-2025 Anion gap [Moles/Vol] 10 mmol/L 5-15 [facility] Automated lymphocyte count a s percentage of total leukocytesOrdered By: Daniele Salazar on 03-10-2025 Lymphocytes/100 WBC Auto (Unsp spec) 31.3 % 19-41 [facility] BUN/creatinine ratioOrdered By: Daniele Salazar on 03-10-2025 Urea nitrogen/Creatinine [Mass ratio] 19.1 mg/mg 10-20 [facility] Basophil percentageOrdered B y: Daniele Salazra on 03-10-2025 Basophils/100 WBC (Bld) 0.6 % 0-1 [facility] Bilirubin, totalOrdered By: Daniele Salazar on 03-10-2025 Bilirubin [Mass/Vol] mg/dL 0.00-1.30 [facility] CBC W/Diff, Automatedon 02-28 Absolute Lymph 2.12 X10 3/uL Normal 0.83-4.51 [facility] Comment on above: Performed By: #### M [id number] #### [facility] [address] [place], [address] Absolute Neut 3.9 X10 3/uL Normal 2.0-7.7 [facility] Comment on above: Performed By: #### M [id number] #### [facility] [address] [place], [address] Basophils/100 WBC (Bld) 0.6 % Normal 0-1 [facility] Comment on above: Performed By: #### M [id number] #### [facility] [address] [place], [address] Eosinophils/100 WBC (Bld) 3.5 % Normal 0-5 [facility] Comment on above: Performed By: #### M [id number] #### [facility] [address] [place], [address] Erythrocyte distribution width (RBC) [Ratio] 14.3 % Normal 11.6-14.6 [facility] Comment on above: Performed By: #### M 8200.1000 #### [facility] [address] [place], [address] Hematocrit (Bld) [Volume fraction] 42.0 % Normal 37-47 [facility] Comment on above: Performed By: #### M 8200.1000 #### [facility] [address] [place], [address] Hemoglobin (Bld) [Mass/Vol] 13.2 g/dL Normal 12.0-15.0 [facility] Comment on above: Performed By: #### M 8200.1000 #### [facility] [address] [place], [address] IG% 0.100 Normal 0.0-0.9 [facility] Comment on above: Result Comment: IG% - Immature Granulocytes (promyelocytes, myelocytes and metamyelocytes) > 1% indicates that a LEFT SHIFT is Present. Performed By: #### M 8200.1000 #### [facility] [address] [place], [address] Lymphocytes/100 WBC (Bld) 31.3 % Normal 19-41 [facility] Comment on above: Performed By: #### [id number] #### [facility] [address] [place], [address] MCH (RBC) [Entitic mass] 27.4 pg Normal 27.0-32.0 [facility] Comment on above: Performed By: #### M [id number] #### [facility] [address] [place], [address] MCHC (RBC) [Mass/Vol] 31.4 g/dL Low 32-36 [facility] Comment on above: Performed By: #### M 8200.1000 #### [facility] [address] [place], [address] MCV (RBC) [Entitic vol] 87.1 fL Normal 81-[address] [facility] Comment on above: Performed By: #### M 8200.1000 #### [facility] [address] [place], [address] Monocytes/100 WBC (Bld) 6.9 % Normal 0-[address] [facility] Comment on above: Performed By: #### M 8200.1000 #### [facility] [address] [place], [address] Neutrophils/100 WBC (Bld) 57.6 % Normal 47-70 [facility] Comment on above: Performed By: #### M 8200.1000 #### [facility] [address] [place], [address] Nucleated RBC (Bld) [#/Vol] 0 10*3/uL Normal 0-5 [facility] Comment on above: Performed By: #### M [id number] #### [facility] [address] [place], [address] Platelet mean volume (Bld) [Entitic vol] 10.4 fL Normal 6.2-12.0 [facility] Comment on above: Performed By: #### M 8200.1000 #### [facility] [address] [place] [place], [address] Platelets (Bld) [#/Vol] 168 10*3/uL Normal 150-450 [facility] Comment on above: Performed By: #### M 8200.1000 #### [facility] [address] [place], [address] RBC (Bld) [#/Vol] 4.82 10*6/uL Normal 4.2-5.4 [facility] Comment on above: Performed By: #### M [id number] #### [facility] [address] [place], [address] RDW SD 45.7 fl High 35.1-43.9 [facility] Comment on above: Performed By: #### M 8200.1000 #### [facility] [address] [place], [address] WBC (Bld) [#/Vol] 6.8 10*3/uL Normal 4.4-11.0 [facility] Comment on above: Performed By: #### M 8200.1000 #### [facility] [address] [place], [address] Calculated very low density lipoprotein (VLDL) cholesterol measurementOrdered By: Daniele Salazar on 03-10-2025 Calculated very low density lipoprotein (VLDL) cholesterol measurement 43 mg/dL High 5-40 [facility] Carbon dioxide, total [Moles /volume] in Central venous bloodOrdered By: Daniele Salazar on 03-10-2025 CO2 [Moles/Vol] 27.4 mmol/L 21.0-32.0 [facility] Chloride assayOrdered By: Zachariah Salazar on 03-10-2025 Chloride [Moles/Vol] 105 mmol/L 98-108 [facility] Comprehensive Metabolic Prof ilon 03-10-2025 Albumin [Mass/Vol] 3.8 g/dL Normal 3.4-4.8 [facility] Comment on above: Performed By: #### M [id number] #### [facility] [address] [place], [address] Albumin/Globulin [Mass ratio] 1.4 {ratio} Normal 0.9-2.4 [facility] Comment on above: Performed By: #### M [id number] #### [facility] [address] [place], [address] ALK PHOS 86 U/L Normal 35-104 [facility] Comment on above: Performed By: #### M [id number] #### [facility] [address] [place], [address] ALT [Catalytic activity/Vol] 12 U/L Normal <=34 [facility] Comment on above: Performed By: #### M 8200.1000 #### [facility] [address] [place], [address] AST [Catalytic activity/Vol] 29 U/L Normal <=31 [facility] Comment on above: Result Comment: Hemo lysis present, Results??could be affected. ?? Performed By: #### M 8200.1000 #### [facility] [address] [place], [address] BUN/CRE 19.1 RATIO Normal 10-20 [facility] Comment on above: Performed By: #### M 8200.1000 #### [facility] [address] [place], [address] Calcium [Mass/Vol] 9.3 mg/dL Normal 7.6-11.0 [facility] Comment on above: Performed By: #### M 8200.1000 #### [facility] [address] [place], [address] Chloride [Moles/Vol] 105 mmol/L Normal 98-108 [facility] Comment on above: Performed By: #### M 8200.1000 #### [facility] [address] [place], [address] CO2 [Moles/Vol] 27.4 mmol/L Normal 21.0-32.0 [facility] Comment on above: Performed By: #### M 8200.1000 #### [facility] [address] [place], [address] Creatinine [Mass/Vol] 1.17 mg/dL Normal 0.70-1.20 [facility] Comment on above: Performed By: #### M 8200.1000 #### [facility] [address] [place], [address] GAP 10 Normal 5-15 [facility] Comment on above: Performed By: #### M 8200.1000 #### [facility] [address] [place], [address] GFR/1.73 sq M.predicted among non-blacks MDRD (S/P/Bld) [Vol rate/Area] 50 mL/min/{1.73_m2} Low >60 [facility] Comment on above: Result Comment: mL/m in/1.73m2 CKD-EPI Creatinine Equation (2020) Performed By: #### M 8200.1000 #### [facility] [address] [place], [address] Globulin (S) [Mass/Vol] 2.8 g/dL Normal 2.2-4.[address] [facility] Comment on above: Performed By: #### M 8200.1000 #### [facility] [address] [place], [address] Glucose [Mass/Vol] 85 mg/dL Normal 70-99 [facility] Comment on above: Performed By: #### M 8200.1000 #### [facility] [address] [place], [address] Potassium [Moles/Vol] 4.9 mmol/L Normal 3.3-5.1 [facility] Comment on above: Result Comment: Hemo lysis present, Results??could be affected. ?? Performed By: #### M 8200.1000 #### [facility] [address] [place], [address] Sodium [Moles/Vol] 142 mmol/L Normal 133-145 [facility] Comment on above: Performed By: #### M 8200.1000 #### [facility] [address] [place], [address] T BILI < 0.15 Normal 0.00-1.30 [facility] Comment on above: Performed By: #### M 8200.1000 #### [facility] [address] [place], [address] T PROT 6.6 g/dL Normal 5.9-8.4 [facility] Comment on above: Performed By: #### M 8200.1000 #### [facility] [address] [place], [address] Urea nitrogen [Mass/Vol] 22 mg/dL High 4-19 [facility] Comment on above: Performed By: #### M 8200.1000 #### [facility] [address] [place], [address] Eosinophil percentageOrdered By: Daniele Salazar on 03-10-2025 Eosinophils/100 WBC (Bld) 3.5 % 0-5 [facility] Erythrocyte distribution wid th ratioOrdered By: Daniele Salazar on 03-10-2025 Erythrocyte distribution width (RBC) [Ratio] 14.3 % 11.6-14.6 [facility] Erythrocyte distribution wid th standard deviationOrdered By: Daniele Salazar on 03-10-2025 Erythrocyte distribution width (RBC) [Ratio] 45.7 fl High 35.1-43.9 [facility] Glomerular filtration rate ( GFR) estimation/1.73 sq m using serum, plasma, or whole bOrdered By: Daniele Salazar on 03-10-2025 GFR/1.73 sq M.predicted among non-blacks MDRD (S/P/Bld) [Vol rate/Area] 50 mL/min/{1.73_m2} Low >60 [facility] Comment on above: mL/min/1.73m2 CKD-EP I Creatinine Equation (2020) Hematocrit Auto (Bld) [Volum e fraction]Ordered By: Daniele Salazar on 03-10-2025 Hematocrit (Bld) [Volume fraction] 42.0 % 37-47 [facility] Hemoglobin measurementOrdere d By: Daniele Salazar on 03-10-2025 Hemoglobin (Bld) [Mass/Vol] 13.2 g/dL 12.0-15.0 [facility] Immature granulocytes/100 WB C Auto (Bld)Ordered By: Daniele Salazar on 03-10-2025 Immature granulocytes/100 WBC (Bld) 0.100 % 0.0-0.9 [facility] Comment on above: IG% - Immature Granu locytes (promyelocytes, myelocytes and metamyelocytes) > 1% indicates that a LEFT SHIFT is Present. LDL calc ser/plasOrdered By: Daniele Salazar on 03-10-2025 Cholesterol in LDL [Mass/Vol] 119 mg/dL [facility] Comment on above: Nvhvumycge=407-127 m g/dL & Higher Lhxf=645 mg/dL or greater Laboratory - Chemistry and C hemistry - challengeOrdered By: Daniele Salazar on 03-10-2025 AST [Catalytic activity/Vol] 29 U/L <32 [facility] Comment on above: Hemolysis present, R esults could be affected. Lipid Profileon 03-10-2025 CHOL:HDL 4.03 Normal [facility] Comment on above: Performed By: #### M 8200.1000 #### [facility] [place] [address] [place], [address] Cholesterol [Mass/Vol] 215 mg/dL High <=200 [facility] Comment on above: Result Comment: Chol esterol level, Desirable <200 mg/dL Borderline high cholesterol 200-239 mg/dL High cholesterol >=240 mg/dL Recommendations of the NCEP Adult Treatment Panel for the following risk-cutoff thresholds for the [place] population. Performed By: #### M 8200.1000 #### [facility] [address] [place], [address] Cholesterol in HDL [Mass/Vol] 53 mg/dL Normal [facility] Comment on above: Result Comment: Ciara onal Cholesterol Education Program (NCEP) guidelines: <40 mg/dL: Low HDL-cholesterol (major risk factor for CHD) >= 60 mg/dL: High HDL-cholesterol (negative risk factor for CHD) HDL-cholesterol is affected by a number of factors, e.g. smoking, exercise, hormones, sex and age. Performed By: #### M 8200.1000 #### [facility] [address] [place], [address] Cholesterol in LDL [Mass/Vol] 119 mg/dL Normal [facility] Comment on above: Result Comment: Bord jtqskx=127-025 mg/dL Higher Kmhm=259 mg/dL or greater Performed By: #### M 8200.1000 #### [facility] [address] [place], [address] Cholesterol in VLDL [Mass/Vol] 43 mg/dL High 5-40 [facility] Comment on above: Performed By: #### M 8200.1000 #### [facility] [address] [place], [address] Triglyceride [Mass/Vol] 216 mg/dL High [facility] Comment on above: Result Comment: The drugs N-Acetylcysteine and Metamizole may falsely depress this assay. Normal range: <150 mg/dL Borderline High: 150-199 mg/dL High: 200-499 mg/dL Very High: >500 mg/dL Performed By: #### M 8200.1000 #### [facility] [place] [address] [place], [address] MCV (mean corpuscular volume ) determinationOrdered By: Daniele Salazar on 03-10-2025 MCV (RBC) [Entitic vol] 87.1 fL 81-99 [facility] Mean corpuscular hemoglobin (MCH) determinationOrdered By: Daniele Salazar on 03-10-2025 MCH (RBC) [Entitic mass] 27.4 pg 27.0-32.0 [facility] Mean corpuscular hemoglobin concentration (MCHC) determinationOrdered By: Daniele Salazar on 03-10-2025 MCHC (RBC) [Mass/Vol] 31.4 g/dL Low 32-36 [facility] Mean platelet volume determi nationOrdered By: Daniele Salazar on 03-10-2025 Platelet mean volume (Bld) [Entitic vol] 10.4 fL 6.2-12.0 [facility] Monocyte percentageOrdered B y: Daniele Salazar on 03-10-2025 Monocytes/100 WBC (Bld) 6.9 % 0-10 [facility] Neutrophil percentageOrdered By: [facility] on 03-10-2025 Neutrophils/100 WBC (Bld) 57.6 % 47-70 [facility] Nucleated red blood cell per centageOrdered By: Daniele Salazar on 03-10-2025 Nucleated RBC/100 WBC (Bld) [Ratio] 0 % 0-5 [facility] Platelet countOrdered By: Zachariah Salazar on 03-10-2025 Platelets (Bld) [#/Vol] 168 10*3/uL 150-450 [facility] Potassium measurement (mass/ volume)Ordered By: Daniele Salazar on 03-10-2025 Potassium (Unsp spec) [Mass/Vol] 4.9 mmol/L 3.3-5.1 [facility] Comment on above: Hemolysis present, R esults could be affected. RBC Auto (Bld) [#/Vol]Ordere d By: Daniele Salazar on 03-10-2025 RBC (Bld) [#/Vol] 4.82 10*6/uL 4.2-5.4 [facility] Screening total cholesterol/ high density lipoprotein (HDL) cholesterol ratioOrdered By: Daniele Salazar on 03-10-2025 Cholesterol.total/Kristin sterol in HDL [Mass ratio] 4.03 {ratio} [facility] Serum creatinine measurement (mass/volume)Ordered By: Daniele Salazar on 03-10-2025 Creatinine [Mass/Vol] 1.17 mg/dL 0.70-1.20 [facility] Serum globulin measurementOr dered By: Daniele Salazar 03-10-2025 Globulin (S) [Mass/Vol] 2.8 g/dL 2.2-4.[address] [facility] Serum glucose measurement (m ass/volume)Ordered By: Daniele Salazar 03-10-2025 Glucose [Mass/Vol] 85 mg/dL 70-99 [facility] Serum or plasma alanine tang otransferase (ALT) measurementOrdered By: Daniele Salazar 03-10-2025 ALT [Catalytic activity/Vol] 12 U/L <35 [facility] Serum or plasma albumin yovani urement (mass/volume)Ordered By: Daniele Salazar 03-10-2025 Albumin [Mass/Vol] 3.8 g/dL 3.4-4.8 [facility] Serum or plasma albumin/glob ulin mass ratioOrdered By: Danilee Salazar 03-10-2025 Albumin/Globulin [Mass ratio] 1.4 {ratio} 0.9-2.4 [facility] Serum or plasma alkaline tello sphatase measurementOrdered By: Daniele Salazar 03-10-2025 ALP [Catalytic activity/Vol] 86 U/L 35-104 [facility] Serum or plasma calcium yovani urement (mass/volume)Ordered By: Daniele Salazar 03-10-2025 Calcium [Mass/Vol] 9.3 mg/dL 7.6-11.0 [facility] Serum or plasma cholesterol in HDL measurement (mass/volume)Ordered By: Daniele Salazar 03-10-2025 Cholesterol in HDL [Mass/Vol] 53 mg/dL >40 [facility] Comment on above: National Cholesterol Education Program (NCEP) guidelines:<40 mg/dL: Low HDL-cholesterol (major risk factor for CHD)>= 60 mg/dL: High HDL-cholesterol (negative risk factor for CHD)HDL-cholesterol is affected by a number of factors, e.g. smoking, exercise, hormones, sex and age. Serum or plasma cholesterol measurement (mass/volume)Ordered By: Daniele Salazar on 03-10-2025 Cholesterol [Mass/Vol] 215 mg/dL High <201 [facility] Comment on above: Cholesterol level, D esirable <200 mg/dLBorderline high cholesterol 200-239 mg/dLHigh cholesterol >=240 mg/dLRecommendations of the NCEP Adult Treatment Panel for the following risk-cutoff thresholds for the [place] population. Serum or plasma urea nitroge n measurement (mass/volume)Ordered By: Daniele Salazar on 03-10-2025 Urea nitrogen [Mass/Vol] 22 mg/dL High 4-19 [facility] Sodium levelOrdered By: Daniele Salazar on 03-10-2025 Sodium [Moles/Vol] 142 mmol/L 133-145 [facility] TSH DL <= 0.005 mIU/L QnOrde red By: Daniele Salazar on 03-10-2025 TSH Qn 2.600 uIU/mL 0.300-4.200 [facility] Thyroid Stim Hormone (TSH)on 03-10-2025 TSH 2.600 uIU/mL Normal 0.300-4.200 [facility] Comment on above: Performed By: #### M 8200.1000 #### [facility] Laboratory [facility] [place], [address] Total proteinOrdered By: Daniele Salazar on 03-10-2025 Protein [Mass/Vol] 6.6 g/dL 5.9-8.4 [facility] Triglycerides measurementOrd ered By: Daniele Salazar on 03-10-2025 Triglyceride [Mass/Vol] 216 mg/dL High <199 [facility] Comment on above: The drugs N-Acetylcy steine and Metamizole may falsely depress this assay. Normal range: <150 mg/dLBorderline High: 150-199 mg/dLHigh: 200-499 mg/dLVery High: >500 mg/dL Vitamin D,25 Hydroxyon 03-10 Vitamin D 25-OH 22.4 ng/mL Low 30-100 [facility] Comment on above: Result Comment: Nellie min D Status Deficiency: <20 ng/mL (50nmol/L) Insufficiency: 20-30 ng/mL (50-75 nmol/L) Sufficiency: 30-100 ng/mL (75-250 nmol/L) Toxicity: >100 ng/mL (>250 nmol/L) Performed By: #### M 8200.1000 #### [facility] [address] [place], [address] White blood cell (WBC) count Ordered By: Daniele Salazar on 03-10-2025 WBC (Bld) [#/Vol] 6.8 10*3/uL 4.4-11.0 [facility] Anion gap in Serum or Plasma Ordered By: Daniele Salazar on 01-02-2025 Anion gap [Moles/Vol] 11 mmol/L 5-15 [facility] BUN/creatinine ratioOrdered By: Daniele Salazar on 01-02-2025 Urea nitrogen/Creatinine [Mass ratio] 20.3 mg/mg High 10-20 [facility] Basic Metabolic Profile (BMP )on 01-02-2025 BUN/CRE 20.3 RATIO High - [facility] Comment on above: Performed By: #### L [id number] #### [facility] Laboratory [address] [place], [address] Calcium [Mass/Vol] 8.9 mg/dL Normal 7.6-11.0 [facility] Comment on above: Performed By: #### L [id number] #### [facility] [address] [place], [address] Chloride [Moles/Vol] 103 mmol/L Normal 98-108 [facility] Comment on above: Performed By: #### L [id number] #### [facility] [address] [place], [address] CO2 [Moles/Vol] 25.0 mmol/L Normal 21.0-32.0 [facility] Comment on above: Performed By: #### L [id number] #### [facility] [address] [place], [address] Creatinine [Mass/Vol] 1.15 mg/dL Normal 0.70-1.20 [facility] Comment on above: Performed By: #### L [id number] #### [facility] [address] [place], [address] GAP 11 Normal 5-15 [facility] Comment on above: Performed By: #### L [id number] #### [facility] [address] [place], [address] GFR/1.73 sq M.predicted among non-blacks MDRD (S/P/Bld) [Vol rate/Area] 51 mL/min/{1.73_m2} Low >60 [facility] Comment on above: Result Comment: mL/m in/1.73m2 CKD-EPI Creatinine Equation (2020) Performed By: #### L [id number] #### [facility] [address] [place], [address] Glucose [Mass/Vol] 101 mg/dL High 70-99 [facility] Comment on above: Performed By: #### L [id number] #### [facility] [address] [place], [address] Potassium [Moles/Vol] 4.7 mmol/L Normal 3.3-5.1 [facility] Comment on above: Performed By: #### L [id number] #### [facility] [address] [place], [address] Sodium [Moles/Vol] 139 mmol/L Normal 133-145 [facility] Comment on above: Performed By: #### L [id number] #### [facility] [address] [place], [address] Urea nitrogen [Mass/Vol] 23 mg/dL High 4-19 [facility] Comment on above: Performed By: #### L [id number] #### [facility] [place] [address] [place], [address] Carbon dioxide, total [Moles /volume] in Central venous bloodOrdered By: Daniele Salazar on 01-02-2025 CO2 [Moles/Vol] 25.0 mmol/L 21.0-32.0 [facility] Chloride assayOrdered By: Zachariah Salazar on 01-02-2025 Chloride [Moles/Vol] 103 mmol/L 98-108 [facility] Glomerular filtration rate ( GFR) estimation/1.73 sq m using serum, plasma, or whole bOrdered By: Daniele Salazar on 01-02-2025 GFR/1.73 sq M.predicted among non-blacks MDRD (S/P/Bld) [Vol rate/Area] 51 mL/min/{1.73_m2} Low >60 [facility] Comment on above: mL/min/1.73m2 CKD-EP I Creatinine Equation (2020) Potassium measurement (mass/ volume)Ordered By: Daniele Salazar on 01-02-2025 Potassium (Unsp spec) [Mass/Vol] 4.7 mmol/L 3.3-5.1 [facility] Serum creatinine measurement (mass/volume)Ordered By: Daniele Salazar 01-02-2025 Creatinine [Mass/Vol] 1.15 mg/dL 0.70-1.20 [facility] Serum glucose measurement (m ass/volume)Ordered By: Daniele Salazar 01-02-2025 Glucose [Mass/Vol] 101 mg/dL High 70-99 [facility] Serum or plasma calcium yovani urement (mass/volume)Ordered By: Daniele Salazar 01-02-2025 Calcium [Mass/Vol] 8.9 mg/dL 7.6-11.0 [facility] Serum or plasma urea nitroge n measurement (mass/volume)Ordered By: Daniele Salazar 01-02-2025 Urea nitrogen [Mass/Vol] 23 mg/dL High 4-19 [facility] Sodium levelOrdered By: Daniele Salazar 01-02-2025 Sodium [Moles/Vol] 139 mmol/L 133-145 [facility] Absolute lymphocyte countOrd ered By: Daniele Salazar on 12-21-2024 Lymphocytes Auto (Unsp spec) [#/Vol] 2.89 10*3/uL 0.83-4.51 [facility] Absolute neutrophil countOrd ered By: Daniele Salazar on 12-21-2024 Neutrophils (Bld) [#/Vol] 5.3 10*3/uL 2.0-7.7 [facility] Anion gap in Serum or Plasma Ordered By: Daniele Salazar on 12-21-2024 Anion gap [Moles/Vol] 10 mmol/L 5- [facility] Automated lymphocyte count a s percentage of total leukocytesOrdered By: Daniele Martin on 12-21-2024 Lymphocytes/100 WBC Auto (Unsp spec) 32.3 % 19- [facility] BUN/creatinine ratioOrdered By: Daniele Salazar on 12-21-2024 Urea nitrogen/Creatinine [Mass ratio] 19.6 mg/mg 10- [facility] Basophil percentageOrdered B y: Daniele Martin on 12-21-2024 Basophils/100 WBC (Bld) 0.3 % 0-1 [facility] Bilirubin, totalOrdered By: Daniele Martin on 12-21-2024 Bilirubin [Mass/Vol] mg/dL 0.00-1.30 [facility] CBC W/Diff, Automatedon 11-30 Absolute Lymph 2.89 X10 3/uL Normal 0.83-4.51 [facility] Comment on above: Performed By: #### L [id number] #### [facility] Laboratory [address] [place], [address] Absolute Neut 5.3 X10 3/uL Normal 2.0-7.7 [facility] Comment on above: Performed By: #### L 500.2500 #### [facility] Laboratory [address] [place], [address] Basophils/100 WBC (Bld) 0.3 % Normal 0-1 [facility] Comment on above: Performed By: #### L 500.2500 #### [facility] Laboratory [address] [place], [address] Eosinophils/100 WBC (Bld) 1.9 % Normal 0-5 [facility] Comment on above: Performed By: #### L 500.2500 #### [facility] Laboratory [address], [address] Erythrocyte distribution width (RBC) [Ratio] 15.0 % High 11.6-14.6 [facility] Comment on above: Performed By: #### L 500.2500 #### [facility] Laboratory [address] [place], [address] Hematocrit (Bld) [Volume fraction] 41.7 % Normal 37-47 [facility] Comment on above: Performed By: #### L 500.2500 #### [facility] Laboratory [facility] [place], [address] Hemoglobin (Bld) [Mass/Vol] 12.6 g/dL Normal 12.0-15.0 [facility] Comment on above: Performed By: #### L 500.2500 #### [facility] Laboratory [address] [place], [address] IG% 0.300 Normal 0.0-0.9 [facility] Comment on above: Result Comment: IG% - Immature Granulocytes (promyelocytes, myelocytes and metamyelocytes) > 1% indicates that a LEFT SHIFT is Present. Performed By: #### L 500.2500 #### [facility] Laboratory [address] [place], [address] Lymphocytes/100 WBC (Bld) 32.3 % Normal 19-41 [facility] Comment on above: Performed By: #### L 500.2500 #### [facility] Laboratory [address] [place], [address] MCH (RBC) [Entitic mass] 27.9 pg Normal 27.0-32.0 [facility] Comment on above: Performed By: #### L 500.2500 #### [facility] Laboratory [address] [place], [address] MCHC (RBC) [Mass/Vol] 30.2 g/dL Low 32-36 [facility] Comment on above: Performed By: #### L 500.2500 #### [facility] Laboratory [address] [place], [address] MCV (RBC) [Entitic vol] 92.3 fL Normal 81-99 [facility] Comment on above: Performed By: #### L 500.2500 #### [facility] Laboratory [address] [place], [address] Monocytes/100 WBC (Bld) 5.9 % Normal 0-[address] [facility] Comment on above: Performed By: #### L 500.2500 #### [facility] Laboratory [address] [place], [address] Neutrophils/100 WBC (Bld) 59.3 % Normal 47-70 [facility] Comment on above: Performed By: #### L 500.2500 #### [facility] Laboratory [address] [place], [address] Nucleated RBC (Bld) [#/Vol] 0 10*3/uL Normal 0-5 [facility] Comment on above: Performed By: #### L 500.2500 #### [facility] Laboratory [address] [place], [address] Platelet mean volume (Bld) [Entitic vol] 10.0 fL Normal 6.2-12.0 [facility] Comment on above: Performed By: #### L 500.2500 #### [facility] Laboratory [address] [place], [address] Platelets (Bld) [#/Vol] 254 10*3/uL Normal 150-450 [facility] Comment on above: Performed By: #### L 500.2500 #### [facility] Laboratory [address] [place], [address] RBC (Bld) [#/Vol] 4.52 10*6/uL Normal 4.2-5.4 [facility] Comment on above: Performed By: #### L 500.2500 #### [facility] Laboratory [address] [place], [place], [id number] RDW SD 50.9 fl High 35.1-43.9 [facility] Comment on above: Performed By: #### L 500.2500 #### [facility] Laboratory [address] [place], [place], [address] WBC (Bld) [#/Vol] 9.0 10*3/uL Normal 4.4-11.0 [facility] Comment on above: Performed By: #### L 500.2500 #### [facility] Laboratory [address] [place], [place], [address] Calculated very low density lipoprotein (VLDL) cholesterol measurementOrdered By: Daniele Salazar on 12-21-2024 Calculated very low density lipoprotein (VLDL) cholesterol measurement 51 mg/dL High 5-40 [facility] VLDL Cholesterol 51 mg/dL High 5-40 [facility] Carbon dioxide, total [Moles /volume] in Central venous bloodOrdered By: Daniele Salazar on 12-21-2024 CO2 [Moles/Vol] 26.9 mmol/L 21.0-32.0 [facility] Chloride assayOrdered By: Zachariah Salazar on 12-21-2024 Chloride [Moles/Vol] 102 mmol/L 98-108 [facility] Comprehensive Metabolic Prof ilon 12-21-2024 Albumin [Mass/Vol] 3.7 g/dL Normal 3.4-4.8 [facility] Comment on above: Performed By: #### L 100.0100, L500.2500 #### [facility] Laboratory [address] [place], [place], [address] Albumin/Globulin [Mass ratio] 1.5 {ratio} Normal 0.9-2.4 [facility] Comment on above: Performed By: #### L 100.0100, L500.2500 #### [facility] Laboratory [address] [place], [address] ALK PHOS 87 U/L Normal 35-104 [facility] Comment on above: Performed By: #### L 100.0100, L500.2500 #### [facility] Laboratory [address] [place], [address] ALT [Catalytic activity/Vol] 10 U/L Normal <=34 [facility] Comment on above: Performed By: #### L 100.0100, L500.2500 #### [facility] Laboratory [address] [place], [address] AST [Catalytic activity/Vol] 17 U/L Normal <=31 [facility] Comment on above: Performed By: #### L 100.0100, L500.2500 #### [facility] Laboratory [address] [place], [address] BUN/CRE 19.6 RATIO Normal 10-20 [facility] Comment on above: Performed By: #### L 100.0100, L500.2500 #### [facility] Laboratory [address] [place], [address] Calcium [Mass/Vol] 8.7 mg/dL Normal 7.6-11.0 [facility] Comment on above: Performed By: #### L 100.0100, L500.2500 #### [facility] Laboratory [address] [place], [address] Chloride [Moles/Vol] 102 mmol/L Normal 98-108 [facility] Comment on above: Performed By: #### L 100.0100, L500.2500 #### [facility] Laboratory [address] [place], [address] CO2 [Moles/Vol] 26.9 mmol/L Normal 21.0-32.0 [facility] Comment on above: Performed By: #### L 100.0100, L500.2500 #### [facility] Laboratory [address] [place], [address] Creatinine [Mass/Vol] 1.06 mg/dL Normal 0.70-1.20 [facility] Comment on above: Performed By: #### L 100.0100, L500.2500 #### [facility] Laboratory [address] [place], [address] GAP 10 Normal 5-15 [facility] Comment on above: Performed By: #### L 100.0100, L500.2500 #### [facility] Laboratory [address] [place], [address] GFR/1.73 sq M.predicted among non-blacks MDRD (S/P/Bld) [Vol rate/Area] 56 mL/min/{1.73_m2} Low >60 [facility] Comment on above: Result Comment: mL/m in/1.73m2 CKD-EPI Creatinine Equation (2020) Performed By: #### L 100.0100, L500.2500 #### [facility] Laboratory [address] [place], [address] Globulin (S) [Mass/Vol] 2.5 g/dL Normal 2.2-4.[address] [facility] Comment on above: Performed By: #### L 100.0100, L500.2500 #### [facility] Laboratory [address] [place], [address] Glucose [Mass/Vol] 105 mg/dL High 70-99 [facility] Comment on above: Performed By: #### L 100.0100, L500.2500 #### [facility] Laboratory [address] [place], [address] Potassium [Moles/Vol] 5.2 mmol/L High 3.3-5.1 [facility] Comment on above: Performed By: #### L 100.0100, L500.2500 #### [facility] Laboratory [address] [place], [address] Sodium [Moles/Vol] 138 mmol/L Normal 133-145 [facility] Comment on above: Performed By: #### L 100.0100, L500.2500 #### [facility] Laboratory [address] [place], [address] T BILI < 0.15 Normal 0.00-1.30 [facility] Comment on above: Performed By: #### L 100.0100, L500.2500 #### [facility] Laboratory [address] [place], [address] T PROT 6.2 g/dL Normal 5.9-8.4 [facility] Comment on above: Performed By: #### L 100.0100, L500.2500 #### [facility] Laboratory [address] [place], [address] Urea nitrogen [Mass/Vol] 21 mg/dL High 4-19 [facility] Comment on above: Performed By: #### L 100.0100, L500.2500 #### [facility] Laboratory [address] [place], [address] Eosinophil percentageOrdered By: Daniele Martin on 12-21-2024 Eosinophils/100 WBC (Bld) 1.9 % 0-5 [facility] Erythrocyte distribution wid th (RBC) [Ratio]Ordered By: Daniele Salazar on 12-21-2024 Erythrocyte distribution width (RBC) [Entitic vol] 50.9 fL High 35.1-43.9 [facility] Erythrocyte distribution wid th ratioOrdered By: [facility] on 12-21-2024 Erythrocyte distribution width (RBC) [Ratio] 15.0 % High 11.6-14.6 [facility] Erythrocyte distribution wid th standard deviationOrdered By: [facility] on 12-21-2024 Erythrocyte distribution width (RBC) [Ratio] 50.9 fl High 35.1-43.9 [facility] GFR/1.73 sq M.predicted nick g non-blacks MDRD (S/P/Bld) [Vol rate/Area]Ordered By: Daniele Salazar on 12-21-2024 Estimated GFR (MDRD) Non-Af Amer 56 Low >60 [facility] Comment on above: mL/min/1.73m2 CKD-EP I Creatinine Equation (2020) Glomerular filtration rate ( GFR) estimation/1.73 sq m using serum, plasma, or whole bOrdered By: Daniele Salazar on 12-21-2024 GFR/1.73 sq M.predicted among non-blacks MDRD (S/P/Bld) [Vol rate/Area] 56 mL/min/{1.73_m2} Low >60 [facility] Comment on above: mL/min/1.73m2 CKD-EP I Creatinine Equation (2020) Hematocrit Auto (Bld) [Volum e fraction]Ordered By: Daniele Salazar on 12-21-2024 Hematocrit (Bld) [Volume fraction] 41.7 % 37-47 [facility] Hemoglobin measurementOrdere d By: Daniele Salazar on 12-21-2024 Hemoglobin (Bld) [Mass/Vol] 12.6 g/dL 12.0-15.0 [facility] Hepatitis C Antibodyon 12-21 Hepatitis C Ab Non-Reactive Normal Nonreactive [facility] Comment on above: Result Comment: Reac tive: Presumptive evidence of antibodies to HCV. Follow CDC recommendations for supplemental testing. Non-Reactive: Antibodies to HCV were not detected; does not exclude the possibility of exposure to HCV Reactive Results are presumptive evidence of antibodies to HCV. Follow CDC recommendations for supplemental testing. Order confirmation testing: HCV Quant by PCR testing - HCVPCR #[id number] Non Reactive: < 0.8 Equivocal: >/= 0.8 to < 1.0 Reactive: >/= 1.0 The CDC requires that a reactive/equivocal HCV antibody result be sent out for confirmation. HCV Quant by PCR testing. Performed By: #### L 500.6484 #### [facility] Laboratory [address] [place], [place], [id number] Hepatitis C antibodyOrdered By: Daniele Salazar on 12-21-2024 Hepatitis C Antibody Non-Reactive Nonreactive [facility] Comment on above: Reactive: Presumptiv e evidence of antibodies to HCV. Follow CDC recommendations for supplemental testing.Non-Reactive: Antibodies to HCV were not detected; does not exclude the possibility of exposure to HCVReactive Results are presumptive evidence of antibodies to HCV. Follow CDC recommendations for supplemental testing.Order confirmation testing: HCV Quant by PCR testing - HCVPCR #[id number] Non Reactive: < 0.8 Equivocal: >/= 0.8 to < 1.0 Reactive: >/= 1.0The CDC requires that a reactive/equivocal HCV antibody result be sent out for confirmation. HCV Quant by PCR testing. Immature granulocytes/100 WB C Auto (Bld)Ordered By: Daniele Salazar on 12-21-2024 Immature granulocytes/100 WBC (Bld) 0.300 % 0.0-0.9 [facility] Comment on above: IG% - Immature Granu locytes (promyelocytes, myelocytes and metamyelocytes) > 1% indicates that a LEFT SHIFT is Present. LDL calc ser/plasOrdered By: Daniele Salazar on 12-21-2024 Cholesterol in LDL [Mass/Vol] 103 mg/dL [facility] Comment on above: Hxocjsgrmj=221-440 m g/dL & Higher Tmyt=864 mg/dL or greater LDL Cholesterol, Calculated 103 mg/dL [facility] Comment on above: Htdvjhxynl=192-306 m g/dL & Higher Gbcy=150 mg/dL or greater Laboratory - Chemistry and C hemistry - challengeOrdered By: Daniele Salazar on 12-21-2024 AST [Catalytic activity/Vol] 17 U/L <32 [facility] Lipid Profileon 12-21-2024 CHOL:HDL 3.73 Normal [facility] Comment on above: Performed By: #### L 500.2500 #### [facility] Laboratory [address] [place], [place], [id number] Cholesterol [Mass/Vol] 211 mg/dL High <=200 [facility] Comment on above: Result Comment: Chol esterol level, Desirable <200 mg/dL Borderline high cholesterol 200-239 mg/dL High cholesterol >=240 mg/dL Recommendations of the NCEP Adult Treatment Panel for the following risk-cutoff thresholds for the [place] population. Performed By: #### L 500.2500 #### [facility] Laboratory [address] [place], [address] Cholesterol in HDL [Mass/Vol] 57 mg/dL Normal [facility] Comment on above: Result Comment: Ciara onal Cholesterol Education Program (NCEP) guidelines: <40 mg/dL: Low HDL-cholesterol (major risk factor for CHD) >= 60 mg/dL: High HDL-cholesterol (negative risk factor for CHD) HDL-cholesterol is affected by a number of factors, e.g. smoking, exercise, hormones, sex and age. Performed By: #### L 500.2500 #### [facility] Laboratory [address] [place], [address] Cholesterol in LDL [Mass/Vol] 103 mg/dL Normal [facility] Comment on above: Result Comment: Bord oxwbsg=578-287 mg/dL Higher Tvwj=366 mg/dL or greater Performed By: #### L 500.2500 #### [facility] Laboratory [address] [place], [address] Cholesterol in VLDL [Mass/Vol] 51 mg/dL High 5-40 [facility] Comment on above: Performed By: #### L 500.2500 #### [facility] Laboratory [address] [place], [address] Triglyceride [Mass/Vol] 255 mg/dL High [facility] Comment on above: Result Comment: The drugs N-Acetylcysteine and Metamizole may falsely depress this assay. Normal range: <150 mg/dL Borderline High: 150-199 mg/dL High: 200-499 mg/dL Very High: >500 mg/dL Performed By: #### L 500.2500 #### [facility] Laboratory [address] [place], [address] Lymphocytes Auto (Unsp spec) [#/Vol]Ordered By: Daniele Salazar on 12-21-2024 Lymphocytes (Bld) [#/Vol] 2.89 10*3/uL 0.83-4.51 [facility] Lymphocytes/100 WBC Auto (Un sp spec)Ordered By: Daniele Salazar on 12-21-2024 Lymphocytes/100 WBC (Bld) 32.3 % 19-41 [facility] MCV (mean corpuscular volume ) determinationOrdered By: Daniele Salazar on 12-21-2024 MCV (RBC) [Entitic vol] 92.3 fL 81-99 [facility] Mean corpuscular hemoglobin (MCH) determinationOrdered By: Daniele Martin on 12-21-2024 MCH (RBC) [Entitic mass] 27.9 pg 27.0-32.0 [facility] Mean corpuscular hemoglobin concentration (MCHC) determinationOrdered By: Daniele Salazar on 12-21-2024 MCHC (RBC) [Mass/Vol] 30.2 g/dL Low 32-36 [facility] Mean platelet volume determi nationOrdered By: Daniele Salazar on 12-21-2024 Platelet mean volume (Bld) [Entitic vol] 10.0 fL 6.2-12.0 [facility] Monocyte percentageOrdered B y: Daniele Salazar on 12-21-2024 Monocytes/100 WBC (Bld) 5.9 % 0-10 [facility] Neutrophil percentageOrdered By: Daniele Zamoraok on 12-21-2024 Neutrophils/100 WBC (Bld) 59.3 % 47-70 [facility] Nucleated red blood cell per centageOrdered By: Daniele Zamora12-21-2024 Nucleated RBC/100 WBC (Bld) [Ratio] 0 % 0-5 [facility] Platelet countOrdered By: Zachariah Salazar on 12-21-2024 Platelets (Bld) [#/Vol] 254 10*3/uL 150-450 [facility] Potassium (Unsp spec) [Mass/ Vol]Ordered By: Daniele Salazar on 12-21-2024 Potassium [Moles/Vol] 5.2 mmol/L High 3.3-5.1 [facility] Potassium measurement (mass/ volume)Ordered By: Daniele Salazar 12-21-2024 Potassium (Unsp spec) [Mass/Vol] 5.2 mmol/L High 3.3-5.1 [facility] RBC Auto (Bld) [#/Vol]Ordere d By: Daniele Salazar on 12-21-2024 RBC (Bld) [#/Vol] 4.52 10*6/uL 4.2-5.4 [facility] Screening total cholesterol/ high density lipoprotein (HDL) cholesterol ratioOrdered By: Daniele Salazar 12-21-2024 Cholesterol.total/Kristin sterol in HDL [Mass ratio] 3.73 {ratio} [facility] Serum creatinine measurement (mass/volume)Ordered By: Daniele Salazar on 12-21-2024 Creatinine [Mass/Vol] 1.06 mg/dL 0.70-1.20 [facility] Serum globulin measurementOr dered By: Daniele Salazar 12-21-2024 Globulin (S) [Mass/Vol] 2.5 g/dL 2.2-4.2 [facility] Serum glucose measurement (m ass/volume)Ordered By: Daniele Salazar 12-21-2024 Glucose [Mass/Vol] 105 mg/dL High 70-99 [facility] Serum or plasma alanine tang otransferase (ALT) measurementOrdered By: Daniele Salazar 12-21-2024 ALT [Catalytic activity/Vol] 10 U/L <35 [facility] Serum or plasma albumin yovani urement (mass/volume)Ordered By: Daniele Salazar 12-21-2024 Albumin [Mass/Vol] 3.7 g/dL 3.4-4.8 [facility] Serum or plasma albumin/glob ulin mass ratioOrdered By: Daniele Salazar 12-21-2024 Albumin/Globulin [Mass ratio] 1.5 {ratio} 0.9-2.4 [facility] Serum or plasma alkaline tello sphatase measurementOrdered By: Daniele Salazar 12-21-2024 ALP [Catalytic activity/Vol] 87 U/L 35-104 [facility] Serum or plasma calcium yovani urement (mass/volume)Ordered By: Daniele Salazar 12-21-2024 Calcium [Mass/Vol] 8.7 mg/dL 7.6-11.0 [facility] Serum or plasma cholesterol in HDL measurement (mass/volume)Ordered By: Daniele Salazar 12-21-2024 Cholesterol in HDL [Mass/Vol] 57 mg/dL >40 [facility] Comment on above: National Cholesterol Education Program (NCEP) guidelines:<40 mg/dL: Low HDL-cholesterol (major risk factor for CHD)>= 60 mg/dL: High HDL-cholesterol (negative risk factor for CHD)HDL-cholesterol is affected by a number of factors, e.g. smoking, exercise, hormones, sex and age. Serum or plasma cholesterol measurement (mass/volume)Ordered By: Daniele Salazar on 12-21-2024 Cholesterol [Mass/Vol] 211 mg/dL High <201 [facility] Comment on above: Cholesterol level, D esirable <200 mg/dLBorderline high cholesterol 200-239 mg/dLHigh cholesterol >=240 mg/dLRecommendations of the NCEP Adult Treatment Panel for the following risk-cutoff thresholds for the [place] population. Serum or plasma urea nitroge n measurement (mass/volume)Ordered By: Daniele Salazar on 12-21-2024 Urea nitrogen [Mass/Vol] 21 mg/dL High 4-19 [facility] Sodium levelOrdered By: Daniele Salazar on 12-21-2024 Sodium [Moles/Vol] 138 mmol/L 133-145 [facility] TSH DL <= 0.005 mIU/L QnOrde red By: Daniele Salazar on 12-21-2024 Thyroid Stimulating Hormone (TSH) 2.570 uIU/mL 0.300-4.200 [facility] TSH Qn 2.570 uIU/mL 0.300-4.200 [facility] Thyroid Stim Hormone (TSH)on 12-21-2024 TSH 2.570 uIU/mL Normal 0.300-4.200 [facility] Comment on above: Performed By: #### L 100.0100, L500.2500 #### [facility] Laboratory [address] [place], [place] [address], [place], [id number] Total proteinOrdered By: Daniele Salazar on 12-21-2024 Protein [Mass/Vol] 6.2 g/dL 5.9-8.4 [facility] Triglycerides measurementOrd ered By: Daniele Salazar on 12-21-2024 Triglyceride [Mass/Vol] 255 mg/dL High <199 [facility] Comment on above: The drugs N-Acetylcy steine and Metamizole may falsely depress this assay. Normal range: <150 mg/dLBorderline High: 150-199 mg/dLHigh: 200-499 mg/dLVery High: >500 mg/dL Vitamin D, 25-hydroxyOrdered By: Daniele Salazar on 12-21-2024 Vitamin D 25-Hydroxy 18.3 ng/mL Low 30-100 [facility] Comment on above: Vitamin D StatusDefi ciency: <20 ng/mL (50nmol/L)Insufficiency: 20-30 ng/mL (50-75 nmol/L)Sufficiency: 30-100 ng/mL (75-250 nmol/L)Toxicity: >100 ng/mL (>250 nmol/L) Vitamin D,25 Hydroxyon 12-21 Vitamin D 25-OH 18.3 ng/mL Low 30-100 [facility] Comment on above: Result Comment: Nellie min D Status Deficiency: <20 ng/mL (50nmol/L) Insufficiency: 20-30 ng/mL (50-75 nmol/L) Sufficiency: 30-100 ng/mL (75-250 nmol/L) Toxicity: >100 ng/mL (>250 nmol/L) Performed By: #### L 100.0100, L500.2500 #### [facility] Laboratory [address] [place], [address] White blood cell (WBC) count Ordered By: Daniele Salazar on 12-21-2024 WBC (Bld) [#/Vol] 9.0 10*3/uL 4.4-11.0 [facility] Basic Metabolic Profile (BMP )on 11-18-2024 BUN Normal 4-19 [facility] Comment on above: Result Comment: Canc elled via OM: Order cancelled - Patient discharged Performed By: #### L 100.0100, L500.2500 #### [facility] Laboratory [address] [place], [address] BUN/CRE Normal 10-20 [facility] Comment on above: Result Comment: Canc elled via OM: Order cancelled - Patient discharged Performed By: #### L 100.0100, L500.2500 #### [facility] Laboratory [address] [place], [address] Calcium Normal 7.6-11.0 [facility] Comment on above: Result Comment: Canc elled via OM: Order cancelled - Patient discharged Performed By: #### L 100.0100, L500.2500 #### [facility] Laboratory [address] [place], [address] CL Normal 98-108 [facility] Comment on above: Result Comment: Canc elled via OM: Order cancelled - Patient discharged Performed By: #### L 100.0100, L500.2500 #### [facility] Laboratory [address] [place], [address] CO2 Normal 21.0-32.0 [facility] Comment on above: Result Comment: Canc elled via OM: Order cancelled - Patient discharged Performed By: #### L 100.0100, L500.2500 #### [facility] [address] [place], [address] CREAT,SERUM Normal 0.70-1.20 [facility] Comment on above: Result Comment: Canc elled via OM: Order cancelled - Patient discharged Performed By: #### L 100.0100, L500.2500 #### [facility] Laboratory [address] [place], [address] eGFR Normal >60 [facility] Comment on above: Result Comment: Canc elled via OM: Order cancelled - Patient discharged Performed By: #### L 100.0100, L500.2500 #### [facility] [address] [place], [address] GAP Normal 5-15 [facility] Comment on above: Result Comment: Canc elled via OM: Order cancelled - Patient discharged Performed By: #### L 100.0100, L500.2500 #### [facility] [address] [place], [address] GLU Normal 70-99 [facility] Comment on above: Result Comment: Canc elled via OM: Order cancelled - Patient discharged Performed By: #### L 100.0100, L500.2500 #### [facility] [address] [place], [address] Potassium Normal 3.3-5.1 [facility] Comment on above: Result Comment: Canc elled via OM: Order cancelled - Patient discharged Performed By: #### L 100.0100, L500.2500 #### [facility] Laboratory [address] [place], [address] Basic Metabolic Profile (BMP) Normal 133-145 [facility] Comment on above: Result Comment: Canc elled via OM: Order cancelled - Patient discharged Performed By: #### L 100.0100, L500.2500 #### [facility] Laboratory [address] [place], [address] CBC W/Diff, Automatedon 03-2 Absolute Neut Normal 2.0-7.7 [facility] Comment on above: Result Comment: Canc elled via OM: Order cancelled - Patient discharged Performed By: #### L 100.0100, L500.2500 #### [facility] [address] [place], [address] HCT Normal 37-47 [facility] Comment on above: Result Comment: Canc elled via OM: Order cancelled - Patient discharged Performed By: #### L 100.0100, L500.2500 #### [facility] Laboratory [address] [place], [address] HGB Normal 12.0-15.0 [facility] Comment on above: Result Comment: Canc elled via OM: Order cancelled - Patient discharged Performed By: #### L 100.0100, L500.2500 #### [facility] Laboratory [address] [place], [address] MCH Normal 27.0-32.0 [facility] Comment on above: Result Comment: Canc elled via OM: Order cancelled - Patient discharged Performed By: #### L 100.0100, L500.2500 #### [facility] Laboratory [address] [place], [address] MCHC Normal 32-36 [facility] Comment on above: Result Comment: Canc elled via OM: Order cancelled - Patient discharged Performed By: #### L 100.0100, L500.2500 #### [facility] [address] [place], [address] MCV Normal 81-99 [facility] Comment on above: Result Comment: Canc elled via OM: Order cancelled - Patient discharged Performed By: #### L 100.0100, L500.2500 #### [facility] [address] [place], [address] NEUT% Normal 47-70 [facility] Comment on above: Result Comment: Canc elled via OM: Order cancelled - Patient discharged Performed By: #### L 100.0100, L500.2500 #### [facility] [address] [place], [address] PLT Normal 150-450 [facility] Comment on above: Result Comment: Canc elled via OM: Order cancelled - Patient discharged Performed By: #### L 100.0100, L500.2500 #### [facility] [address] [place], [address] RBC Normal 4.2-5.4 [facility] Comment on above: Result Comment: Canc elled via OM: Order cancelled - Patient discharged Performed By: #### L 100.0100, L500.2500 #### [facility] [address] [place], [address] RDW CV Normal 11.6-14.6 [facility] Comment on above: Result Comment: Canc elled via OM: Order cancelled - Patient discharged Performed By: #### L 100.0100, L500.2500 #### [facility] [address] [place], [address] RDW SD Normal 35.1-43.9 [facility] Comment on above: Result Comment: Canc elled via OM: Order cancelled - Patient discharged Performed By: #### L 100.0100, L500.2500 #### [facility] [address] [place], [address] WBC Normal 4.4-11.0 [facility] Comment on above: Result Comment: Canc elled via OM: Order cancelled - Patient discharged Performed By: #### L 100.0100, L500.2500 #### [facility] [address] [place], [address] Basic Metabolic Profile (BMP )on 11-17-2024 BUN Normal 4-19 [facility] Comment on above: Result Comment: Canc elled via OM: Order cancelled - Patient discharged Performed By: #### M 8200.1000 #### [facility] Laboratory [address] [place], [address] BUN/CRE Normal 10-20 [facility] Comment on above: Result Comment: Canc elled via OM: Order cancelled - Patient discharged Performed By: #### M 8200.1000 #### [facility] Laboratory [address] [place], [address] Calcium Normal 7.6-11.0 [facility] Comment on above: Result Comment: Canc elled via OM: Order cancelled - Patient discharged Performed By: #### M 8200.1000 #### [facility] [address] [place], [address] CL Normal 98-108 [facility] Comment on above: Result Comment: Canc elled via OM: Order cancelled - Patient discharged Performed By: #### M 8200.1000 #### [facility] [address] [place], [address] CO2 Normal 21.0-32.0 [facility] Comment on above: Result Comment: Canc elled via OM: Order cancelled - Patient discharged Performed By: #### M 8200.1000 #### [facility] [address] [place], [address] CREAT,SERUM Normal 0.70-1.20 [facility] Comment on above: Result Comment: Canc elled via OM: Order cancelled - Patient discharged Performed By: #### M 8200.1000 #### [facility] [address] [place], [address] eGFR Normal >60 [facility] Comment on above: Result Comment: Canc elled via OM: Order cancelled - Patient discharged Performed By: #### M 8200.1000 #### [facility] [address] [place], [address] GAP Normal 5-15 [facility] Comment on above: Result Comment: Canc elled via OM: Order cancelled - Patient discharged Performed By: #### M 8200.1000 #### [facility] [address] [place], [address] GLU Normal 70-99 [facility] Comment on above: Result Comment: Canc elled via OM: Order cancelled - Patient discharged Performed By: #### M 8200.1000 #### [facility] [address] [place], [address] Potassium Normal 3.3-5.1 [facility] Comment on above: Result Comment: Canc elled via OM: Order cancelled - Patient discharged Performed By: #### M 8200.1000 #### [facility] [address] [place], [address] Basic Metabolic Profile (BMP) Normal 133-145 [facility] Comment on above: Result Comment: Canc elled via OM: Order cancelled - Patient discharged Performed By: #### M 8200.1000 #### [facility] Laboratory [address] [place], [address] CBC W/Diff, Automatedon 03-2 0-2024 Absolute Neut Normal 2.0-7.7 [facility] Comment on above: Result Comment: Canc elled via OM: Order cancelled - Patient discharged Performed By: #### M 8200.1000 #### [facility] [address] [place], [address] HCT Normal 37-47 [facility] Comment on above: Result Comment: Canc elled via OM: Order cancelled - Patient discharged Performed By: #### M 8200.1000 #### [facility] [address] [place], [address] HGB Normal 12.0-15.0 [facility] Comment on above: Result Comment: Canc elled via OM: Order cancelled - Patient discharged Performed By: #### M 8200.1000 #### [facility] [address] [place], [address] MCH Normal 27.0-32.0 [facility] Comment on above: Result Comment: Canc elled via OM: Order cancelled - Patient discharged Performed By: #### M 8200.1000 #### [facility] [address] [place], [address] MCHC Normal 32-36 [facility] Comment on above: Result Comment: Canc elled via OM: Order cancelled - Patient discharged Performed By: #### M 8200.1000 #### [facility] [address] [place], [address] MCV Normal 81-99 [facility] Comment on above: Result Comment: Canc elled via OM: Order cancelled - Patient discharged Performed By: #### M 8200.1000 #### [facility] [address] [place], [address] NEUT% Normal 47-70 [facility] Comment on above: Result Comment: Canc elled via OM: Order cancelled - Patient discharged Performed By: #### M 8200.1000 #### [facility] [address] [place], [address] PLT Normal 150-450 [facility] Comment on above: Result Comment: Canc elled via OM: Order cancelled - Patient discharged Performed By: #### M 8200.1000 #### [facility] [address] [place], [address] RBC Normal 4.2-5.4 [facility] Comment on above: Result Comment: Canc elled via OM: Order cancelled - Patient discharged Performed By: #### M 8200.1000 #### [facility] [address] [place], [address] RDW CV Normal 11.6-14.6 [facility] Comment on above: Result Comment: Canc elled via OM: Order cancelled - Patient discharged Performed By: #### M 8200.1000 #### [facility] [address] [place], [address] RDW SD Normal 35.1-43.9 [facility] Comment on above: Result Comment: Canc elled via OM: Order cancelled - Patient discharged Performed By: #### M 8200.1000 #### [facility] [address] [place], [address] WBC Normal 4.4-11.0 [facility] Comment on above: Result Comment: Canc elled via OM: Order cancelled - Patient discharged Performed By: #### M 8200.1000 #### [facility] [address] [place], [address] Basic Metabolic Profile (BMP )on 11-16-2024 BUN Normal 4-19 [facility] Comment on above: Result Comment: Canc elled via OM: Order cancelled - Patient discharged Performed By: #### L 500.2500 #### [facility] [address] [place], [address] BUN/CRE Normal 10-20 [facility] Comment on above: Result Comment: Canc elled via OM: Order cancelled - Patient discharged Performed By: #### L 500.2500 #### [facility] [address] [place], [address] Calcium Normal 7.6-11.0 [facility] Comment on above: Result Comment: Canc elled via OM: Order cancelled - Patient discharged Performed By: #### L 500.2500 #### [facility] [address] [place], [address] CL Normal 98-108 [facility] Comment on above: Result Comment: Canc elled via OM: Order cancelled - Patient discharged Performed By: #### L 500.2500 #### [facility] [address] [place], [address] CO2 Normal 21.0-32.0 [facility] Comment on above: Result Comment: Canc elled via OM: Order cancelled - Patient discharged Performed By: #### L 500.2500 #### [facility] [address] [place], [address] CREAT,SERUM Normal 0.70-1.20 [facility] Comment on above: Result Comment: Canc elled via OM: Order cancelled - Patient discharged Performed By: #### L 500.2500 #### [facility] [address] [place], [address] eGFR Normal >60 [facility] Comment on above: Result Comment: Canc elled via OM: Order cancelled - Patient discharged Performed By: #### L 500.2500 #### [facility] [address] [place], [address] GAP Normal 5-15 [facility] Comment on above: Result Comment: Canc elled via OM: Order cancelled - Patient discharged Performed By: #### L 500.2500 #### [facility] [address] [place], [address] GLU Normal 70-99 [facility] Comment on above: Result Comment: Canc elled via OM: Order cancelled - Patient discharged Performed By: #### L 500.2500 #### [facility] [address] [place], [address] Potassium Normal 3.3-5.1 [facility] Comment on above: Result Comment: Canc elled via OM: Order cancelled - Patient discharged Performed By: #### L 500.2500 #### [facility] [address] [place], [address] Basic Metabolic Profile (BMP) Normal 133-145 [facility] Comment on above: Result Comment: Canc elled via OM: Order cancelled - Patient discharged Performed By: #### L 500.2500 #### [facility] [address] [place], [address] CBC W/Diff, Automatedon - Absolute Neut Normal 2.0-7.7 [facility] Comment on above: Result Comment: Canc elled via OM: Order cancelled - Patient discharged Performed By: #### L 500.2500 #### [facility] Laboratory [address] [place], [address] HCT Normal 37-47 [facility] Comment on above: Result Comment: Canc elled via OM: Order cancelled - Patient discharged Performed By: #### L 500.2500 #### [facility] [address] [place], [address] HGB Normal 12.0-15.0 [facility] Comment on above: Result Comment: Canc elled via OM: Order cancelled - Patient discharged Performed By: #### L 500.2500 #### [facility] [address] [place], [address] MCH Normal 27.0-32.0 [facility] Comment on above: Result Comment: Canc elled via OM: Order cancelled - Patient discharged Performed By: #### L 500.2500 #### [facility] [address] [place], [address] MCHC Normal 32-36 [facility] Comment on above: Result Comment: Canc elled via OM: Order cancelled - Patient discharged Performed By: #### L 500.2500 #### [facility] [address] [place], [address] MCV Normal 81-99 [facility] Comment on above: Result Comment: Canc elled via OM: Order cancelled - Patient discharged Performed By: #### L 500.2500 #### [facility] [address] [place], [address] NEUT% Normal 47-70 [facility] Comment on above: Result Comment: Canc elled via OM: Order cancelled - Patient discharged Performed By: #### L 500.2500 #### [facility] [address] [place], [address] PLT Normal 150-450 [facility] Comment on above: Result Comment: Canc elled via OM: Order cancelled - Patient discharged Performed By: #### L 500.2500 #### [facility] [address] [place], [address] RBC Normal 4.2-5.4 [facility] Comment on above: Result Comment: Canc elled via OM: Order cancelled - Patient discharged Performed By: #### L 500.2500 #### [facility] [address] [place], [address] RDW CV Normal 11.6-14.6 [facility] Comment on above: Result Comment: Canc elled via OM: Order cancelled - Patient discharged Performed By: #### L 500.2500 #### [facility] [address] [place], [address] RDW SD Normal 35.1-43.9 [facility] Comment on above: Result Comment: Canc elled via OM: Order cancelled - Patient discharged Performed By: #### L 500.2500 #### [facility] [address] [place], [address] WBC Normal 4.4-11.0 [facility] Comment on above: Result Comment: Canc elled via OM: Order cancelled - Patient discharged Performed By: #### L 500.2500 #### [facility] [address] [place], [address] Basic Metabolic Profile (BMP )on 11-15-2024 BUN Normal -19 [facility] Comment on above: Result Comment: Canc elled via OM: Order cancelled - Patient discharged Performed By: #### L 100.0100, L500.2500 #### [facility] [address] [place], [address] BUN/CRE Normal 10-20 [facility] Comment on above: Result Comment: Canc elled via OM: Order cancelled - Patient discharged Performed By: #### L 100.0100, L500.2500 #### [facility] [address] [place], [address] Calcium Normal 7.6-11.0 [facility] Comment on above: Result Comment: Canc elled via OM: Order cancelled - Patient discharged Performed By: #### L 100.0100, L500.2500 #### [facility] [address] [place] [place], [address] CL Normal 98-108 [facility] Comment on above: Result Comment: Canc elled via OM: Order cancelled - Patient discharged Performed By: #### L 100.0100, L500.2500 #### [facility] [address] [place] [place], [address] CO2 Normal 21.0-32.0 [facility] Comment on above: Result Comment: Canc elled via OM: Order cancelled - Patient discharged Performed By: #### L 100.0100, L500.2500 #### [facility] [address] [place], [address] CREAT,SERUM Normal 0.70-1.20 [facility] Comment on above: Result Comment: Canc elled via OM: Order cancelled - Patient discharged Performed By: #### L 100.0100, L500.2500 #### [facility] [address] [place], [address] eGFR Normal >60 [facility] Comment on above: Result Comment: Canc elled via OM: Order cancelled - Patient discharged Performed By: #### L 100.0100, L500.2500 #### [facility] [address] [place], [address] GAP Normal 5-15 [facility] Comment on above: Result Comment: Canc elled via OM: Order cancelled - Patient discharged Performed By: #### L 100.0100, L500.2500 #### [facility] [address] [place], [address] GLU Normal 70-99 [facility] Comment on above: Result Comment: Canc elled via OM: Order cancelled - Patient discharged Performed By: #### L 100.0100, L500.2500 #### [facility] [address] [place], [address] Potassium Normal 3.3-5.1 [facility] Comment on above: Result Comment: Canc elled via OM: Order cancelled - Patient discharged Performed By: #### L 100.0100, L500.2500 #### [facility] [address] [place], [address] Basic Metabolic Profile (BMP) Normal 133-145 [facility] Comment on above: Result Comment: Canc elled via OM: Order cancelled - Patient discharged Performed By: #### L 100.0100, L500.2500 #### [facility] [address] [place], [address] CBC W/Diff, Automatedon 03-1 Absolute Neut Normal 2.0-7.7 [facility] Comment on above: Result Comment: Canc elled via OM: Order cancelled - Patient discharged Performed By: #### L 100.0100, L500.2500 #### [facility] [address] [place], [address] HCT Normal 37-47 [facility] Comment on above: Result Comment: Canc elled via OM: Order cancelled - Patient discharged Performed By: #### L 100.0100, L500.2500 #### [facility] [address] [place], [address] HGB Normal 12.0-15.0 [facility] Comment on above: Result Comment: Canc elled via OM: Order cancelled - Patient discharged Performed By: #### L 100.0100, L500.2500 #### [facility] [address] [place], [address] MCH Normal 27.0-32.0 [facility] Comment on above: Result Comment: Canc elled via OM: Order cancelled - Patient discharged Performed By: #### L 100.0100, L500.2500 #### [facility] [address] [place], [address] MCHC Normal 32-36 [facility] Comment on above: Result Comment: Canc elled via OM: Order cancelled - Patient discharged Performed By: #### L 100.0100, L500.2500 #### [facility] [address] [place], [address] MCV Normal 81-99 [facility] Comment on above: Result Comment: Canc elled via OM: Order cancelled - Patient discharged Performed By: #### L 100.0100, L500.2500 #### [facility] [address] [place], [address] NEUT% Normal 47-70 [facility] Comment on above: Result Comment: Canc elled via OM: Order cancelled - Patient discharged Performed By: #### L 100.0100, L500.2500 #### [facility] [address] [place], [address] PLT Normal 150-450 [facility] Comment on above: Result Comment: Canc elled via OM: Order cancelled - Patient discharged Performed By: #### L 100.0100, L500.2500 #### [facility] [address] [place], [address] RBC Normal 4.2-5.4 [facility] Comment on above: Result Comment: Canc elled via OM: Order cancelled - Patient discharged Performed By: #### L 100.0100, L500.2500 #### [facility] [address] [place], [address] RDW CV Normal 11.6-14.6 [facility] Comment on above: Result Comment: Canc elled via OM: Order cancelled - Patient discharged Performed By: #### L 100.0100, L500.2500 #### [facility] [address] [place], [address] RDW SD Normal 35.1-43.9 [facility] Comment on above: Result Comment: Canc elled via OM: Order cancelled - Patient discharged Performed By: #### L 100.0100, L500.2500 #### [facility] [address] [place], [address] WBC Normal 4.4-11.0 [facility] Comment on above: Result Comment: Canc elled via OM: Order cancelled - Patient discharged Performed By: #### L 100.0100, L500.2500 #### [facility] [address] [place], [address] Basic Metabolic Profile (BMP )on 11-14-2024 BUN Normal 4-19 [facility] Comment on above: Result Comment: Canc elled via OM: Order cancelled - Patient discharged Performed By: #### L 100.0100, L500.2500 #### [facility] [address] [place], [address] BUN/CRE Normal 10-20 [facility] Comment on above: Result Comment: Canc elled via OM: Order cancelled - Patient discharged Performed By: #### L 100.0100, L500.2500 #### [facility] [address] [place], [address] Calcium Normal 7.6-11.0 [facility] Comment on above: Result Comment: Canc elled via OM: Order cancelled - Patient discharged Performed By: #### L 100.0100, L500.2500 #### [facility] [address] [place], [address] CL Normal 98-108 [facility] Comment on above: Result Comment: Canc elled via OM: Order cancelled - Patient discharged Performed By: #### L 100.0100, L500.2500 #### [facility] [address] [place], [address] CO2 Normal 21.0-32.0 [facility] Comment on above: Result Comment: Canc elled via OM: Order cancelled - Patient discharged Performed By: #### L 100.0100, L500.2500 #### [facility] [address] [place], [address] CREAT,SERUM Normal 0.70-1.20 [facility] Comment on above: Result Comment: Canc elled via OM: Order cancelled - Patient discharged Performed By: #### L 100.0100, L500.2500 #### [facility] [address] [place], [address] eGFR Normal >60 [facility] Comment on above: Result Comment: Canc elled via OM: Order cancelled - Patient discharged Performed By: #### L 100.0100, L500.2500 #### [facility] [address] [place], [address] GAP Normal 5-15 [facility] Comment on above: Result Comment: Canc elled via OM: Order cancelled - Patient discharged Performed By: #### L 100.0100, L500.2500 #### [facility] [address] [place], [address] GLU Normal 70-99 [facility] Comment on above: Result Comment: Canc elled via OM: Order cancelled - Patient discharged Performed By: #### L 100.0100, L500.2500 #### [facility] [address] [place], [address] Potassium Normal 3.3-5.1 [facility] Comment on above: Result Comment: Canc elled via OM: Order cancelled - Patient discharged Performed By: #### L 100.0100, L500.2500 #### [facility] [address] [place], [address] Basic Metabolic Profile (BMP) Normal 133-145 [facility] Comment on above: Result Comment: Canc elled via OM: Order cancelled - Patient discharged Performed By: #### L 100.0100, L500.2500 #### [facility] [address] [place], [address] CBC W/Diff, Automatedon 03-1 Absolute Neut Normal 2.0-7.7 [facility] Comment on above: Result Comment: Canc elled via OM: Order cancelled - Patient discharged Performed By: #### L 100.0100, L500.2500 #### [facility] [address] [place], [address] HCT Normal 37-47 [facility] Comment on above: Result Comment: Canc elled via OM: Order cancelled - Patient discharged Performed By: #### L 100.0100, L500.2500 #### [facility] [address] [place], [address] HGB Normal 12.0-15.0 [facility] Comment on above: Result Comment: Canc elled via OM: Order cancelled - Patient discharged Performed By: #### L 100.0100, L500.2500 #### [facility] [address] [place] [place], [address] MCH Normal 27.0-32.0 [facility] Comment on above: Result Comment: Canc elled via OM: Order cancelled - Patient discharged Performed By: #### L 100.0100, L500.2500 #### [facility] [address] [place], [address] MCHC Normal 32-36 [facility] Comment on above: Result Comment: Canc elled via OM: Order cancelled - Patient discharged Performed By: #### L 100.0100, L500.2500 #### [facility] [address] [place], [address] MCV Normal 81-99 [facility] Comment on above: Result Comment: Canc elled via OM: Order cancelled - Patient discharged Performed By: #### L 100.0100, L500.2500 #### [facility] [address] [place], [address] NEUT% Normal 47-70 [facility] Comment on above: Result Comment: Canc elled via OM: Order cancelled - Patient discharged Performed By: #### L 100.0100, L500.2500 #### [facility] [address] [place], [address] PLT Normal 150-450 [facility] Comment on above: Result Comment: Canc elled via OM: Order cancelled - Patient discharged Performed By: #### L 100.0100, L500.2500 #### [facility] [address] [place], [address] RBC Normal 4.2-5.4 [facility] Comment on above: Result Comment: Canc elled via OM: Order cancelled - Patient discharged Performed By: #### L 100.0100, L500.2500 #### [facility] [address] [place], [address] RDW CV Normal 11.6-14.6 [facility] Comment on above: Result Comment: Canc elled via OM: Order cancelled - Patient discharged Performed By: #### L 100.0100, L500.2500 #### [facility] [address] [place], [address] RDW SD Normal 35.1-43.9 [facility] Comment on above: Result Comment: Canc elled via OM: Order cancelled - Patient discharged Performed By: #### L 100.0100, L500.2500 #### [facility] [address] [place], [address] WBC Normal 4.4-11.0 [facility] Comment on above: Result Comment: Canc elled via OM: Order cancelled - Patient discharged Performed By: #### L 100.0100, L500.2500 #### [facility] [address] [place] [place], [address] Basic Metabolic Profile (BMP )on 11-13-2024 BUN Normal 4-19 [facility] Comment on above: Result Comment: Canc elled via OM: Order cancelled - Patient discharged Performed By: #### L 100.0100, L500.2500 #### [facility] [address] [place] [place], [address] BUN/CRE Normal 10-20 [facility] Comment on above: Result Comment: Canc elled via OM: Order cancelled - Patient discharged Performed By: #### L 100.0100, L500.2500 #### [facility] [address] [place], [address] Calcium Normal 7.6-11.0 [facility] Comment on above: Result Comment: Canc elled via OM: Order cancelled - Patient discharged Performed By: #### L 100.0100, L500.2500 #### [facility] [address] [place], [address] CL Normal 98-108 [facility] Comment on above: Result Comment: Canc elled via OM: Order cancelled - Patient discharged Performed By: #### L 100.0100, L500.2500 #### [facility] [address] [place], [address] CO2 Normal 21.0-32.0 [facility] Comment on above: Result Comment: Canc elled via OM: Order cancelled - Patient discharged Performed By: #### L 100.0100, L500.2500 #### [facility] [address] [place], [address] CREAT,SERUM Normal 0.70-1.20 [facility] Comment on above: Result Comment: Canc elled via OM: Order cancelled - Patient discharged Performed By: #### L 100.0100, L500.2500 #### [facility] [address] [place], [address] eGFR Normal >60 [facility] Comment on above: Result Comment: Canc elled via OM: Order cancelled - Patient discharged Performed By: #### L 100.0100, L500.2500 #### [facility] [address] [place], [address] GAP Normal 5-15 [facility] Comment on above: Result Comment: Canc elled via OM: Order cancelled - Patient discharged Performed By: #### L 100.0100, L500.2500 #### [facility] [address] [place], [address] GLU Normal 70-99 [facility] Comment on above: Result Comment: Canc elled via OM: Order cancelled - Patient discharged Performed By: #### L 100.0100, L500.2500 #### [facility] [address] [place], [address] Potassium Normal 3.3-5.1 [facility] Comment on above: Result Comment: Canc elled via OM: Order cancelled - Patient discharged Performed By: #### L 100.0100, L500.2500 #### [facility] [address] [place], [address] Basic Metabolic Profile (BMP) Normal 133-145 [facility] Comment on above: Result Comment: Canc elled via OM: Order cancelled - Patient discharged Performed By: #### L 100.0100, L500.2500 #### [facility] [address] [place], [address] CBC W/Diff, Automatedon 03- Absolute Neut Normal 2.0-7.7 [facility] Comment on above: Result Comment: Canc elled via OM: Order cancelled - Patient discharged Performed By: #### L 100.0100, L500.2500 #### [facility] [address] [place], [address] HCT Normal 37-47 [facility] Comment on above: Result Comment: Canc elled via OM: Order cancelled - Patient discharged Performed By: #### L 100.0100, L500.2500 #### [facility] [address] [place], [address] HGB Normal 12.0-15.0 [facility] Comment on above: Result Comment: Canc elled via OM: Order cancelled - Patient discharged Performed By: #### L 100.0100, L500.2500 #### [facility] [address] [place], [address] MCH Normal 27.0-32.0 [facility] Comment on above: Result Comment: Canc elled via OM: Order cancelled - Patient discharged Performed By: #### L 100.0100, L500.2500 #### [facility] [address] [place], [address] MCHC Normal 32-36 [facility] Comment on above: Result Comment: Canc elled via OM: Order cancelled - Patient discharged Performed By: #### L 100.0100, L500.2500 #### [facility] [address] [place], [address] MCV Normal 81-99 [facility] Comment on above: Result Comment: Canc elled via OM: Order cancelled - Patient discharged Performed By: #### L 100.0100, L500.2500 #### [facility] [address] [place], [address] NEUT% Normal 47-70 [facility] Comment on above: Result Comment: Canc elled via OM: Order cancelled - Patient discharged Performed By: #### L 100.0100, L500.2500 #### [facility] [address] [place], [address] PLT Normal 150-450 [facility] Comment on above: Result Comment: Canc elled via OM: Order cancelled - Patient discharged Performed By: #### L 100.0100, L500.2500 #### [facility] [address] [place], [address] RBC Normal 4.2-5.4 [facility] Comment on above: Result Comment: Canc elled via OM: Order cancelled - Patient discharged Performed By: #### L 100.0100, L500.2500 #### [facility] [address] [place], [address] RDW CV Normal 11.6-14.6 [facility] Comment on above: Result Comment: Canc elled via OM: Order cancelled - Patient discharged Performed By: #### L 100.0100, L500.2500 #### [facility] [address] [place], [address] RDW SD Normal 35.1-43.9 [facility] Comment on above: Result Comment: Canc elled via OM: Order cancelled - Patient discharged Performed By: #### L 100.0100, L500.2500 #### [facility] [address] [place], [address] WBC Normal 4.4-11.0 [facility] Comment on above: Result Comment: Canc elled via OM: Order cancelled - Patient discharged Performed By: #### L 100.0100, L500.2500 #### [facility] [address] [place], [address] Absolute lymphocyte countOrd ered By: Chana Staley on 11-12-2024 Lymphocytes Auto (Unsp spec) [#/Vol] 0.86 10*3/uL 0.83-4.51 [facility] Absolute neutrophil countOrd ered By: Chana Staley on 11-12-2024 Neutrophils (Bld) [#/Vol] 5.2 10*3/uL 2.0-7.7 [facility] Anion gap in Serum or Plasma Ordered By: Chana Staley on 11-12-2024 Anion gap [Moles/Vol] 11 mmol/L 01-12 [facility] Automated lymphocyte count a s percentage of total leukocytesOrdered By: Chana Staley on 11-12-2024 Lymphocytes/100 WBC Auto (Unsp spec) 13.6 % Low 19-41 [facility] BUN/creatinine ratioOrdered By: Chana Staley on 11-12-2024 Urea nitrogen/Creatinine [Mass ratio] 26.2 mg/mg High 10-20 [facility] Basic Metabolic Profile (BMP )on 11-12-2024 BUN/CRE 26.2 RATIO High 06-19 [facility] Comment on above: Performed By: #### L 100.0100, L500.2500 #### [facility] [address] [place], [address] Calcium [Mass/Vol] 9.1 mg/dL Normal 7.6-11.0 [facility] Comment on above: Performed By: #### L 100.0100, L500.2500 #### [facility] [address] [place], [address] Chloride [Moles/Vol] 101 mmol/L Normal 98-108 [facility] Comment on above: Performed By: #### L 100.0100, L500.2500 #### [facility] [address] [place], [address] CO2 [Moles/Vol] 26.7 mmol/L Normal 21.0-32.0 [facility] Comment on above: Performed By: #### L 100.0100, L500.2500 #### [facility] [address] [place], [address] Creatinine [Mass/Vol] 1.07 mg/dL Normal 0.70-1.20 [facility] Comment on above: Performed By: #### L 100.0100, L500.2500 #### [facility] [address] [place], [address] ECRCL 45.14 ml/min Low 50-250 [facility] Comment on above: Performed By: #### L 100.0100, L500.2500 #### [facility] [address] [place], [address] GAP 11 Normal 5-15 [facility] Comment on above: Performed By: #### L 100.0100, L500.2500 #### [facility] [address] [place], [address] GFR/1.73 sq M.predicted among non-blacks MDRD (S/P/Bld) [Vol rate/Area] 56 mL/min/{1.73_m2} Low >60 [facility] Comment on above: Result Comment: mL/m in/1.73m2 CKD-EPI Creatinine Equation (2020) Performed By: #### L 100.0100, L500.2500 #### [facility] [address] [place], [address] Glucose [Mass/Vol] 130 mg/dL High 70-99 [facility] Comment on above: Performed By: #### L 100.0100, L500.2500 #### [facility] [address] [place] [place], [address] Potassium [Moles/Vol] 5.0 mmol/L Normal 3.3-5.1 [facility] Comment on above: Performed By: #### L 100.0100, L500.2500 #### [facility] [address] [place], [address] Sodium [Moles/Vol] 139 mmol/L Normal 133-145 [facility] Comment on above: Performed By: #### L 100.0100, L500.2500 #### [facility] [address] [place], [address] Urea nitrogen [Mass/Vol] 28 mg/dL High 4-19 [facility] Comment on above: Performed By: #### L 100.0100, L500.2500 #### [facility] [address] [place] [place], [address] Basophil percentageOrdered B y: Chana Luís on 11-12-2024 Basophils/100 WBC (Bld) 0.0 % 0-1 [facility] CBC W/Diff, Automatedon 10-29 Absolute Lymph 0.86 X10 3/uL Normal 0.83-4.51 [facility] Comment on above: Performed By: #### L 100.0100, L500.2500 #### [facility] [address] [place], [address] Absolute Neut 5.2 X10 3/uL Normal 2.0-7.7 [facility] Comment on above: Performed By: #### L 100.0100, L500.2500 #### [facility] [address] [place], [address] Basophils/100 WBC (Bld) 0.0 % Normal 0-1 [facility] Comment on above: Performed By: #### L 100.0100, L500.2500 #### [facility] [address] [place], [address] Eosinophils/100 WBC (Bld) 0.0 % Normal 0-5 [facility] Comment on above: Performed By: #### L 100.0100, L500.2500 #### [facility] [address] [place], [address] Erythrocyte distribution width (RBC) [Ratio] 14.9 % High 11.6-14.6 [facility] Comment on above: Performed By: #### L 100.0100, L500.2500 #### [facility] [address] [place], [address] Hematocrit (Bld) [Volume fraction] 43.7 % Normal 37-47 [facility] Comment on above: Performed By: #### L 100.0100, L500.2500 #### [facility] [address] [place], [address] Hemoglobin (Bld) [Mass/Vol] 13.4 g/dL Normal 12.0-15.0 [facility] Comment on above: Performed By: #### L 100.0100, L500.2500 #### [facility] [address] [place], [address] IG% 0.200 Normal 0.0-0.9 [facility] Comment on above: Result Comment: IG% - Immature Granulocytes (promyelocytes, myelocytes and metamyelocytes) > 1% indicates that a LEFT SHIFT is Present. Performed By: #### L 100.0100, L500.2500 #### [facility] [address] [place], [address] Lymphocytes/100 WBC (Bld) 13.6 % Low 19-41 [facility] Comment on above: Performed By: #### L 100.0100, L500.2500 #### [facility] [address] [place], [address] MCH (RBC) [Entitic mass] 27.6 pg Normal 27.0-32.0 [facility] Comment on above: Performed By: #### L 100.0100, L500.2500 #### [facility] [address] [place], [address] MCHC (RBC) [Mass/Vol] 30.7 g/dL Low 32-36 [facility] Comment on above: Performed By: #### L 100.0100, L500.2500 #### [facility] [address] [place], [address] MCV (RBC) [Entitic vol] 90.1 fL Normal 81-[address] [facility] Comment on above: Performed By: #### L 100.0100, L500.2500 #### [facility] [address] [place], [address] Monocytes/100 WBC (Bld) 3.8 % Normal 0-10 [facility] Comment on above: Performed By: #### L 100.0100, L500.2500 #### [facility] [address] [place], [address] Neutrophils/100 WBC (Bld) 82.4 % High 47-70 [facility] Comment on above: Performed By: #### L 100.0100, L500.2500 #### [facility] [address] [place] [place], [address] Nucleated RBC (Bld) [#/Vol] 0 10*3/uL Normal 0-5 [facility] Comment on above: Performed By: #### L 100.0100, L500.2500 #### [facility] [address] [place], [address] Platelet mean volume (Bld) [Entitic vol] 10.0 fL Normal 6.2-12.0 [facility] Comment on above: Performed By: #### L 100.0100, L500.2500 #### [facility] [address] [place], [address] Platelets (Bld) [#/Vol] 228 10*3/uL Normal 150-450 [facility] Comment on above: Performed By: #### L 100.0100, L500.2500 #### [facility] [address] [place], [address] RBC (Bld) [#/Vol] 4.85 10*6/uL Normal 4.2-5.4 [facility] Comment on above: Performed By: #### L 100.0100, L500.2500 #### [facility] [address] [place], [address] RDW SD 49.9 fl High 35.1-43.9 [facility] Comment on above: Performed By: #### L 100.0100, L500.2500 #### [facility] [address] [place], [address] WBC (Bld) [#/Vol] 6.3 10*3/uL Normal 4.4-11.0 [facility] Comment on above: Performed By: #### L 100.0100, L500.2500 #### [facility] [address] [place], [address] Carbon dioxide, total [Moles /volume] in Central venous bloodOrdered By: Chana Satley on 11-12-2024 CO2 [Moles/Vol] 26.7 mmol/L 21.0-32.0 [facility] Chloride assayOrdered By: Yoshi Staley on 11-12-2024 Chloride [Moles/Vol] 101 mmol/L 98-108 [facility] Discharge Instructionon 10-29 Discharge Instruction [facility] Medical Records Department [address] [place] [address] Instructions for Home/Discharge Instructions 11/12/24 1341 MR#: [id number] Acct: [id number] Name: CLEMENTINA HOOD Rep #: [id number] : 1955 69 From: Chana Staley MD PCP: Care Physician,No Primary Status:ADM NADEGE Discharge Instructions Diet Discharge Diet: - DC O2, CPAP, BIPAP needs Home O2 Discharge instructions: Yes Type of respiratory needs?: Oxygen Oxygen frequency: With Ambulation Oxygen liters per minute during Ambulation: 2 Follow Up Care Test Results: Test results from this visit will be discussed in further detail at your follow-up appointment, if applicable. Discharge Plan Admission Admit Date/Time: 11/10/24 18:56 Primary Reason for Your Visit: Shortness of breath Attending Provider: Chana Staley Primary Care Provider: Care Physician,No Primary Consulting Providers: Gaurang Donahue Instructions Patient Instructions: Asthma and COPD, COPD Quit Smoking Additional Instructions / Restrictions: DISCHARGE INSTRUCTIONS PLEASE READ *Please take this with you to your next doctors appointment* -You will need 1 more dose of azithromycin which you will take this evening and will need to take 1 dose of Augmentin tonight and then twice daily for 2 more days -You will be discharged on a prednisone taper: -60 mg daily x3 days -50mg daily x3 days -40mg daily x3 days -30mg daily x3 days -20mg daily x3 days -10mg daily x3 days -It is advised that you use your nebulizers at home 3 times daily until you are able to renew your home inhalers -Please continue to use your 2 L of oxygen with ambulation -You would benefit from establishing with pulmonology on discharge, contact information below, advised to contact the office to schedule an establish care appointment -You have an appointment to schedule with a new primary care physician 02/14/2025, information below -You indicated that you ran out of refills on your Ativan, as we discussed only several days of this can be sent in as it is a controlled substance, these were sent to your pharmacy along with your antibiotics and steroids -It is strongly advised that he refrain from smoking as this will worsen your breathing over time -Please call your primary care provider's office upon discharge to schedule a hospital follow up within 1 week. -For any concerning signs or symptoms please call 911 or proceed to the nearest emergency department Discharge Orders/Prescriptions Prescriptions: New azithromycin 500 mg tablet 500 mg PO QHS 1 Days Qty: 1 0RF amoxicillin-pot clavulanate 875-125 mg tablet 1 tab PO BID 2 Days Qty: 5 0RF prednisone 20 mg Tablet See Taper PO BREAKFAST Qty: 32 0RF Taper: Prednisone Taper 60 mg WITH BREAKFAST for 3 Days and 0 Hour 50 mg WITH BREAKFAST for 3 Days and 0 Hour 40 mg WITH BREAKFAST for 3 Days and 0 Hour 30 mg WITH BREAKFAST for 3 Days and 0 Hour 20 mg WITH BREAKFAST for 3 Days and 0 Hour 10 mg WITH BREAKFAST for 3 Days and 0 Hour Continued albuterol sulfate 2.5 mg /3 mL (0.083 %) solution for nebulization 2.5 mg inhalation Q4H PRN Qty: 25 0RF Rx Instructions: Use q4 hours and PRN for wheezing albuterol sulfate [Ventolin HFA] 90 mcg/actuation HFA aerosol inhaler 1 - 2 puff inhalation Q4H PRN PRN (Reason: Wheezing) Qty: 1 0RF ipratropium-albuterol 0.5 mg-3 mg(2.5 mg base)/3 mL solution for nebulization 3 ml inhalation Q6H PRN (Reason: shortness of breath) Qty: 90 0RF lisinopril 20 mg tablet 20 mg PO DAILY 30 Days Qty: 30 0RF lorazepam 0.5 mg tablet 0.5 mg PO Q8H PRN PRN (Reason: anxiety) 3 Days Qty: 9 0RF Trelegy Ellipta 100-62.5-25 mcg blister with device 1 inh inhalation DAILY gabapentin 400 mg capsule 400 mg PO Q6H metformin 500 mg tablet 500 mg PO DAILY ropinirole 2 mg tablet 2 mg PO QHS trazodone 150 mg tablet 150 mg PO QHS quetiapine 50 mg tablet 50 mg PO QHS albuterol sulfate 90 mcg/actuation HFA aerosol inhaler 2 puff inhalation Q6H PRN (Reason: shortness of breath or wheezing) Qty: 6.7 0RF codeine-guaifenesin [Guaifenesin AC] 10-100 mg/5 mL liquid 10 ml PO Q6H PRN (Reason: cough) Qty: 237 1RF Rx Instructions: one or two teaspoons every six hours as needed for cough Discontinued furosemide [Lasix] 40 mg tablet 40 mg PO DAILY Qty: 7 0RF Referrals / Follow Up: Iris Villarreal MD [Med Staff - Active Staff] - 02/14/25 2:00 pm (The hospital van will pick you up at your home at 1:30pm for your appointment. ) Doug Swift DO [Med Staff - Active Staff] - Care Physician,No Primary [Primary Care Provider] - Disposition Disposition (needs filled in before D/C Order can be placed): Home, Self Care 11/12/24 1341 Chana Staley MD CC: Dr. Gaurang Donahue MD; No Primary Care Physician Signed Normal [facility] Discharge Instruction [facility] Medical Records Department [address] [place] [address] Instructions for Home/Discharge Instructions 11/12/24 1152 MR#: [id number] Acct: [id number] Name: CLEMENTINA HOOD Rep #: [id number] : 1955 69 From: Chana Staley MD PCP: Care Physician,No Primary Status:ADM NADEGE Discharge Instructions Diet Discharge Diet: - DC O2, CPAP, BIPAP needs Home O2 Discharge instructions: Yes Type of respiratory needs?: Oxygen Oxygen frequency: With Ambulation Oxygen liters per minute during Ambulation: 3 Dressing / Incision Discharge Activity: Use Walker Follow Up Care Test Results: Test results from this visit will be discussed in further detail at your follow-up appointment, if applicable. Discharge Plan Admission Admit Date/Time: 11/10/24 18:56 Primary Reason for Your Visit: Shortness of breath Attending Provider: Chana Staley Primary Care Provider: Care Physician,No Primary Consulting Providers: Gaurang Donahue Instructions Patient Instructions: Asthma and COPD, COPD Quit Smoking Additional Instructions / Restrictions: DISCHARGE INSTRUCTIONS PLEASE READ *Please take this with you to your next doctors appointment* -You will need 1 more dose of azithromycin which you will take this evening and will need to take 1 dose of Augmentin tonight and then twice daily for 2 more days -You will be discharged on a prednisone taper: -60 mg daily x3 days -50mg daily x3 days -40mg daily x3 days -30mg daily x3 days -20mg daily x3 days -10mg daily x3 days -It is advised that you use your nebulizers at home 3 times daily until you are able to renew your home inhalers -Please continue to use your 3 L of oxygen with ambulation -You would benefit from establishing with pulmonology on discharge, contact information below, advised to contact the office to schedule an establish care appointment -You have an appointment to schedule with a new primary care physician 02/14/2025, information below -You indicated that you ran out of refills on your Ativan, as we discussed only several days of this can be sent in as it is a controlled substance, these were sent to your pharmacy along with your antibiotics and steroids -It is strongly advised that he refrain from smoking as this will worsen your breathing over time -Please call your primary care provider's office upon discharge to schedule a hospital follow up within 1 week. -For any concerning signs or symptoms please call 911 or proceed to the nearest emergency department Discharge Orders/Prescriptions Prescriptions: New azithromycin 500 mg tablet 500 mg PO QHS 1 Days Qty: 1 0RF amoxicillin-pot clavulanate 875-125 mg tablet 1 tab PO BID 2 Days Qty: 5 0RF prednisone 20 mg Tablet See Taper PO BREAKFAST Qty: 32 0RF Taper: Prednisone Taper 60 mg WITH BREAKFAST for 3 Days and 0 Hour 50 mg WITH BREAKFAST for 3 Days and 0 Hour 40 mg WITH BREAKFAST for 3 Days and 0 Hour 30 mg WITH BREAKFAST for 3 Days and 0 Hour 20 mg WITH BREAKFAST for 3 Days and 0 Hour 10 mg WITH BREAKFAST for 3 Days and 0 Hour Continued albuterol sulfate 2.5 mg /3 mL (0.083 %) solution for nebulization 2.5 mg inhalation Q4H PRN Qty: 25 0RF Rx Instructions: Use q4 hours and PRN for wheezing albuterol sulfate [Ventolin HFA] 90 mcg/actuation HFA aerosol inhaler 1 - 2 puff inhalation Q4H PRN PRN (Reason: Wheezing) Qty: 1 0RF ipratropium-albuterol 0.5 mg-3 mg(2.5 mg base)/3 mL solution for nebulization 3 ml inhalation Q6H PRN (Reason: shortness of breath) Qty: 90 0RF lisinopril 20 mg tablet 20 mg PO DAILY 30 Days Qty: 30 0RF lorazepam 0.5 mg tablet 0.5 mg PO Q8H PRN PRN (Reason: anxiety) 3 Days Qty: 9 0RF Trelegy Ellipta 100-62.5-25 mcg blister with device 1 inh inhalation DAILY gabapentin 400 mg capsule 400 mg PO Q6H metformin 500 mg tablet 500 mg PO DAILY ropinirole 2 mg tablet 2 mg PO QHS trazodone 150 mg tablet 150 mg PO QHS quetiapine 50 mg tablet 50 mg PO QHS albuterol sulfate 90 mcg/actuation HFA aerosol inhaler 2 puff inhalation Q6H PRN (Reason: shortness of breath or wheezing) Qty: 6.7 0RF codeine-guaifenesin [Guaifenesin AC] 10-100 mg/5 mL liquid 10 ml PO Q6H PRN (Reason: cough) Qty: 237 1RF Rx Instructions: one or two teaspoons every six hours as needed for cough Discontinued furosemide [Lasix] 40 mg tablet 40 mg PO DAILY Qty: 7 0RF Referrals / Follow Up: Iris Villarreal MD [Med Staff - Active Staff] - 02/14/25 2:00 pm (The hospital van will pick you up at your home at 1:30pm for your appointment. ) Doug Swift DO [Med Staff - Active Staff] - Care Physician,No Primary [Primary Care Provider] - Disposition Disposition (needs filled in before D/C Order can be placed): Home, Self Care 11/12/24 1334 Chana Staley MD CC: Dr. Gaurang Donahue MD; No Primary Care Physician Signed Normal [facility] Eosinophil percentageOrdered By: Chana Staley on 11-12-2024 Eosinophils/100 WBC (Bld) 0.0 % 0-5 [facility] Erythrocyte distribution wid th ratioOrdered By: Chana Staley on 11-12-2024 Erythrocyte distribution width (RBC) [Ratio] 14.9 % High 11.6-14.6 [facility] Erythrocyte distribution wid th standard deviationOrdered By: Chana Staley on 11-12-2024 Erythrocyte distribution width (RBC) [Entitic vol] 49.9 fL High 35.1-43.9 [facility] Erythrocyte distribution width (RBC) [Ratio] 49.9 fl High 35.1-43.9 [facility] Estimation of creatinine carmela aranceOrdered By: Chana Staley on 11-12-2024 Estimated Creatinine Clearance Calc 45.14 ml/min Low 50-250 [facility] GFR/1.73 sq M.predicted nick g non-blacks MDRD (S/P/Bld) [Vol rate/Area]Ordered By: Chana Staley on 11-12-2024 Estimated GFR (MDRD) Non-Af Amer 56 Low >60 [facility] Comment on above: mL/min/1.73m2 CKD-EP I Creatinine Equation (2020) Glomerular filtration rate ( GFR) estimation/1.73 sq m using serum, plasma, or whole bOrdered By: Chana Staley on 11-12-2024 GFR/1.73 sq M.predicted among non-blacks MDRD (S/P/Bld) [Vol rate/Area] 56 mL/min/{1.73_m2} Low >60 [facility] Comment on above: mL/min/1.73m2 CKD-EP I Creatinine Equation (2020) Hematocrit Auto (Bld) [Volum e fraction]Ordered By: Chana Staley on 11-12-2024 Hematocrit (Bld) [Volume fraction] 43.7 % 37-47 [facility] Hemoglobin measurementOrdere d By: Chana Staley on 11-12-2024 Hemoglobin (Bld) [Mass/Vol] 13.4 g/dL 12.0-15.0 [facility] Immature granulocytes/100 WB C Auto (Bld)Ordered By: Chana Staley on 11-12-2024 Immature granulocytes/100 WBC (Bld) 0.200 % 0.0-0.9 [facility] Comment on above: IG% - Immature Granu locytes (promyelocytes, myelocytes and metamyelocytes) > 1% indicates that a LEFT SHIFT is Present. Lymphocytes Auto (Unsp spec) [#/Vol]Ordered By: Chana Staley on 11-12-2024 Lymphocytes (Bld) [#/Vol] 0.86 10*3/uL 0.83-4.51 [facility] Lymphocytes/100 WBC Auto (Un sp spec)Ordered By: Chaan Staley on 11-12-2024 Lymphocytes/100 WBC (Bld) 13.6 % Low 19-41 [facility] MCV (mean corpuscular volume ) determinationOrdered By: Chana Staley on 11-12-2024 MCV (RBC) [Entitic vol] 90.1 fL 81-99 [facility] Mean corpuscular hemoglobin (MCH) determinationOrdered By: Chana Staley on 11-12-2024 MCH (RBC) [Entitic mass] 27.6 pg 27.0-32.0 [facility] Mean corpuscular hemoglobin concentration (MCHC) determinationOrdered By: Chana Staley on 11-12-2024 MCHC (RBC) [Mass/Vol] 30.7 g/dL Low 32-36 [facility] Mean platelet volume determi nationOrdered By: Chana Staley on 11-12-2024 Platelet mean volume (Bld) [Entitic vol] 10.0 fL 6.2-12.0 [facility] Monocyte percentageOrdered B y: Chana Staley on 11-12-2024 Monocytes/100 WBC (Bld) 3.8 % 0-10 [facility] Neutrophil percentageOrdered By: Chana Staley on 11-12-2024 Neutrophils/100 WBC (Bld) 82.4 % High 47-70 [facility] Nucleated red blood cell per centageOrdered By: Chana Staley on 11-12-2024 Nucleated RBC/100 WBC (Bld) [Ratio] 0 % 0-5 [facility] Platelet countOrdered By: Yoshi Staley on 11-12-2024 Platelets (Bld) [#/Vol] 228 10*3/uL 150-450 [facility] Potassium (Unsp spec) [Mass/ Vol]Ordered By: Chana Staley on 11-12-2024 Potassium [Moles/Vol] 5.0 mmol/L 3.3-5.1 [facility] Potassium measurement (mass/ volume)Ordered By: Chana Staley on 11-12-2024 Potassium (Unsp spec) [Mass/Vol] 5.0 mmol/L 3.3-5.1 [facility] RBC Auto (Bld) [#/Vol]Ordere d By: Chana Staley on 11-12-2024 RBC (Bld) [#/Vol] 4.85 10*6/uL 4.2-5.4 [facility] Serum creatinine measurement (mass/volume)Ordered By: Chana Staley on 11-12-2024 Creatinine [Mass/Vol] 1.07 mg/dL 0.70-1.20 [facility] Serum glucose measurement (m ass/volume)Ordered By: Chana Staley on 11-12-2024 Glucose [Mass/Vol] 130 mg/dL High 70-99 [facility] Serum or plasma calcium yovani urement (mass/volume)Ordered By: Chana Staley on 11-12-2024 Calcium [Mass/Vol] 9.1 mg/dL 7.6-11.0 [facility] Serum or plasma urea nitroge n measurement (mass/volume)Ordered By: Chana Staley on 11-12-2024 Urea nitrogen [Mass/Vol] 28 mg/dL High 4-19 [facility] Sodium levelOrdered By: Payton Staley on 11-12-2024 Sodium [Moles/Vol] 139 mmol/L 133-145 [facility] White blood cell (WBC) count Ordered By: Chana Staley on 11-12-2024 WBC (Bld) [#/Vol] 6.3 10*3/uL 4.4-11.0 [facility] Bilirubin directOrdered By: Gaurang Donahue on 11-11-2024 Bilirubin.direct [Mass/Vol] mg/dL 0.00-0.30 [facility] Bilirubin, Directon 11-12-19 25 D BILI < 0.08 Normal 0.00-0.30 [facility] Comment on above: Performed By: #### L 500.2500, L100.0100, L501.4021 #### [facility] [address] [place], [address] Bilirubin, totalOrdered By: Gaurang Donahue on 11-11-2024 Bilirubin [Mass/Vol] mg/dL 0.00-1.30 [facility] Bilirubin.direct [Mass/Vol]O rdered By: Gaurang Donahue on 11-11-2024 Direct Bilirubin < 0.08 mg/dL 0.00-0.30 [facility] CBC W/Diff, Automatedon 10-29 Absolute Lymph 0.55 X10 3/uL Low 0.83-4.51 [facility] Comment on above: Performed By: #### L 500.2500, L100.0100, [id number] #### [facility] [address] [place], [address] Absolute Neut 1.7 X10 3/uL Low 2.0-7.7 [facility] Comment on above: Performed By: #### L 500.2500, L100.0100, [id number] #### [facility] [address] [place], [address] Basophils/100 WBC (Bld) 0.4 % Normal 0-1 [facility] Comment on above: Performed By: #### L 500.2500, L100.0100, [id number] #### [facility] [address] [place], [address] Eosinophils/100 WBC (Bld) 0.0 % Normal 0-5 [facility] Comment on above: Performed By: #### L 500.2500, L100.0100, [id number] #### [facility] [address] [place], [address] Erythrocyte distribution width (RBC) [Ratio] 14.7 % High 11.6-14.6 [facility] Comment on above: Performed By: #### L 500.2500, L100.0100, [id number] #### [facility] [address] [place], [address] Hematocrit (Bld) [Volume fraction] 40.8 % Normal 37-47 [facility] Comment on above: Performed By: #### L 500.2500, L100.0100, [id number] #### [facility] [address] [place], [address] Hemoglobin (Bld) [Mass/Vol] 12.6 g/dL Normal 12.0-15.0 [facility] Comment on above: Performed By: #### L 500.2500, L100.0100, L501.4021 #### [facility] [address] [place], [address] IG% 0.400 Normal 0.0-0.9 [facility] Comment on above: Result Comment: IG% - Immature Granulocytes (promyelocytes, myelocytes and metamyelocytes) > 1% indicates that a LEFT SHIFT is Present. Performed By: #### L 500.2500, L100.0100, L501.4021 #### [facility] [address] [place], [address] Lymphocytes/100 WBC (Bld) 22.8 % Normal 19-41 [facility] Comment on above: Performed By: #### L 500.2500, L100.0100, [id number] #### [facility] [address] [place], [address] MCH (RBC) [Entitic mass] 27.9 pg Normal 27.0-32.0 [facility] Comment on above: Performed By: #### L 500.2500, L100.0100, [id number] #### [facility] [address] [place], [address] MCHC (RBC) [Mass/Vol] 30.9 g/dL Low 32-36 [facility] Comment on above: Performed By: #### L 500.2500, L100.0100, [id number] #### [facility] [address] [place], [address] MCV (RBC) [Entitic vol] 90.3 fL Normal 81-99 [facility] Comment on above: Performed By: #### L 500.2500, L100.0100, [id number] #### [facility] [address] [place], [address] Monocytes/100 WBC (Bld) 4.6 % Normal 0-10 [facility] Comment on above: Performed By: #### L 500.2500, L100.0100, [id number] #### [facility] [address] [place], [address] Neutrophils/100 WBC (Bld) 71.8 % High 47-70 [facility] Comment on above: Performed By: #### L 500.2500, L100.0100, [id number] #### [facility] [address] [place], [address] Nucleated RBC (Bld) [#/Vol] 0 10*3/uL Normal 0-5 [facility] Comment on above: Performed By: #### L 500.2500, L100.0100, [id number] #### [facility] [address] [place], [address] Platelet mean volume (Bld) [Entitic vol] 10.1 fL Normal 6.2-12.0 [facility] Comment on above: Performed By: #### L 500.2500, L100.0100, [id number] #### [facility] [address] [place], [address] Platelets (Bld) [#/Vol] 217 10*3/uL Normal 150-450 [facility] Comment on above: Performed By: #### L 500.2500, L100.0100, [id number] #### [facility] [address] [place], [address] RBC (Bld) [#/Vol] 4.52 10*6/uL Normal 4.2-5.4 [facility] Comment on above: Performed By: #### L 500.2500, L100.0100, [id number] #### [facility] [address] [place], [address] RDW SD 48.3 fl High 35.1-43.9 [facility] Comment on above: Performed By: #### L 500.2500, L100.0100, [id number] #### [facility] [address] [place], [address] WBC (Bld) [#/Vol] 2.4 10*3/uL Low 4.4-11.0 [facility] Comment on above: Performed By: #### L 500.2500, L100.0100, [id number] #### [facility] [address] [place], [address] Comprehensive Metabolic Prof [facility] 11-11-2024 Albumin [Mass/Vol] 3.8 g/dL Normal 3.4-4.8 [facility] Comment on above: Performed By: #### L 500.2500, L100.0100, [id number] #### [facility] [address] [place], [address] Albumin/Globulin [Mass ratio] 1.3 {ratio} Normal 0.9-2.4 [facility] Comment on above: Performed By: #### L 500.2500, L100.0100, [id number] #### [facility] [address] [place], [address] ALK PHOS 101 U/L Normal 35-104 [facility] Comment on above: Performed By: #### L 500.2500, L100.0100, [id number] #### [facility] [address] [place], [address] ALT [Catalytic activity/Vol] 8 U/L Normal <=34 [facility] Comment on above: Performed By: #### L 500.2500, L100.0100, [id number] #### [facility] [address] [place], [address] AST [Catalytic activity/Vol] 19 U/L Normal <=31 [facility] Comment on above: Performed By: #### L 500.2500, L100.0100, [id number] #### [facility] [address] [place], [address] BUN/CRE 19.3 RATIO Normal 10-20 [facility] Comment on above: Performed By: #### L 500.2500, L100.0100, [id number] #### [facility] [address] [place], [address] Calcium [Mass/Vol] 8.8 mg/dL Normal 7.6-11.0 [facility] Comment on above: Performed By: #### L 500.2500, L100.0100, [id number] #### [facility] [address] [place], [address] Chloride [Moles/Vol] 101 mmol/L Normal 98-108 [facility] Comment on above: Performed By: #### L 500.2500, L100.0100, [id number] #### [facility] [address] [place], [address] CO2 [Moles/Vol] 25.7 mmol/L Normal 21.0-32.0 [facility] Comment on above: Performed By: #### L 500.2500, L100.0100, L501.4021 #### [facility] Laboratory [address] [place], [address] Creatinine [Mass/Vol] 1.08 mg/dL Normal 0.70-1.20 [facility] Comment on above: Performed By: #### L 500.2500, L100.0100, L501.4021 #### [facility] Laboratory [address] [place], [address] ECRCL 44.73 ml/min Low 50-250 [facility] Comment on above: Performed By: #### L 500.2500, L100.0100, L501.4021 #### [facility] Laboratory [address] [place], [address] GAP 12 Normal 5-15 [facility] Comment on above: Performed By: #### L 500.2500, L100.0100, L501.4021 #### [facility] Laboratory [address] [place], [address] GFR/1.73 sq M.predicted among non-blacks MDRD (S/P/Bld) [Vol rate/Area] 55 mL/min/{1.73_m2} Low >60 [facility] Comment on above: Result Comment: mL/m in/1.73m2 CKD-EPI Creatinine Equation (2020) Performed By: #### L 500.2500, L100.0100, L501.4021 #### [facility] Laboratory [address] [place], [address] Globulin (S) [Mass/Vol] 2.9 g/dL Normal 2.2-4.[address] [facility] Comment on above: Performed By: #### L 500.2500, L100.0100, L501.4021 #### [facility] [address] [place], [address] Glucose [Mass/Vol] 132 mg/dL High 70-99 [facility] Comment on above: Performed By: #### L 500.2500, L100.0100, L501.4021 #### [facility] [address] [place], [address] Potassium [Moles/Vol] 4.8 mmol/L Normal 3.3-5.1 [facility] Comment on above: Performed By: #### L 500.2500, L100.0100, L501.4021 #### [facility] Laboratory [address] [place], [address] Sodium [Moles/Vol] 139 mmol/L Normal 133-145 [facility] Comment on above: Performed By: #### L 500.2500, L100.0100, L501.4021 #### [facility] [address] [place], [address] T BILI < 0.15 Normal 0.00-1.30 [facility] Comment on above: Performed By: #### L 500.2500, L100.0100, L501.4021 #### [facility] Laboratory [address] [place], [address] T PROT 6.6 g/dL Normal 5.9-8.4 [facility] Comment on above: Performed By: #### L 500.2500, L100.0100, L501.4021 #### [facility] [address] [place], [address] Urea nitrogen [Mass/Vol] 21 mg/dL High 4-19 [facility] Comment on above: Performed By: #### L 500.2500, L100.0100, L501.4021 #### [facility] [address] [place], [address] International normalized rat io (INR) calculationOrdered By: Gaurang Donahue on 11-11-2024 INR Coag (Bld) [Relative time] 0.9 {INR} [facility] Laboratory - Chemistry and C hemistry - challengeOrdered By: Gaurang Donahue on 11-11-2024 AST [Catalytic activity/Vol] 19 U/L <32 [facility] M8200.1000on 11-11-2024 M8200.1000 Normal Reference Ran ge = Negative MRSA DNA Nose Ql LEYDA+probe GeneXpert Instrument, PCR method MRSA PCR MRSA NEGATIVE Normal [facility] Comment on above: Performed By: #### M 8200.1000 #### [facility] Laboratory [address] [place] [place], [address] Magnesiumon 11-11-2024 Magnesium [Mass/Vol] 2.2 mg/dL Normal 1.5-2.2 [facility] Comment on above: Performed By: #### L 500.2500, L100.0100, L501.4021 #### [facility] [address] [place], [address] Magnesium (Unsp spec) [Mass/ Vol]Ordered By: Gaurang Donahue on 11-11-2024 Magnesium [Mass/Vol] 2.2 mg/dL 1.5-2.2 [facility] Magnesium measurement (mass/ volume)Ordered By: Gaurang Donahue on 11-11-2024 Magnesium (Unsp spec) [Mass/Vol] 2.2 mg/dL 1.5-2.2 [facility] Phosphoruson 11-11-2024 Phosphate [Mass/Vol] 4.9 mg/dL High 2.7-4.5 [facility] Comment on above: Performed By: #### L 500.2500, L100.0100, L501.4021 #### [facility] [address] [place], [address] Prothrombin Time w/INRon INR Coag (PPP) [Relative time] 0.9 {INR} Normal [facility] Comment on above: Performed By: #### L 500.2500, L100.0100, L501.4021 #### [facility] [address] [place], [address] PT Coag (PPP) [Time] 12.7 s Normal 11.7-14.9 [facility] Comment on above: Performed By: #### L 500.2500, L100.0100, L501.4021 #### [facility] [address] [place], [address] Prothrombin timeOrdered By: Gaurang Donahue on 11-11-2024 PT Coag (PPP) [Time] 12.7 s 11.7-14.9 [facility] RESPIRATORY PANEL MOLECULARo n 11-11-2024 RP PANEL ADENOVIRUS Not Detected INFLUENZA A Not Detected INFLUENZA A (SUBTYPE H1) Not Detected INFLUENZA A (SUBTYPE H3) Not Detected INFLUENZA B Not Detected HUMAN METAPHNEUMO Not Detected PARAINFLUENZA 1 Not Detected PARAINFLUENZA 2 Not Detected PARAINFLUENZA 3 Not Detected PARAINFLUENZA 4 Not Detected RHINOVIRUS Not Detected RSV A Not Detected RSV B Not Detected Normal [facility] Comment on above: Performed By: #### M 100.638 #### [facility] [place], [place], [id number] Serum globulin measurementOr dered By: Gaurang Donahue on 11-11-2024 Globulin (S) [Mass/Vol] 2.9 g/dL 2.2-4.[address] [facility] Serum or plasma alanine tang otransferase (ALT) measurementOrdered By: Gaurang Donahue on 11-11-2024 ALT [Catalytic activity/Vol] 8 U/L <35 [facility] Serum or plasma albumin yovani urement (mass/volume)Ordered By: Gaurang Donahue on 11-11-2024 Albumin [Mass/Vol] 3.8 g/dL 3.4-4.8 [facility] Serum or plasma albumin/glob ulin mass ratioOrdered By: Gaurang Donahue on 11-11-2024 Albumin/Globulin [Mass ratio] 1.3 {ratio} 0.9-2.4 [facility] Serum or plasma alkaline tello sphatase measurementOrdered By: Gaurang Donahue on 11-11-2024 ALP [Catalytic activity/Vol] 101 U/L 35-104 [facility] Serum phosphorus measurement Ordered By: Gaurang Donahue on 11-11-2024 Phosphorus Level 4.9 mg/dL High 2.7-4.5 [facility] TSH DL <= 0.005 mIU/L QnOrde red By: Gaurang Donahue on 11-11-2024 Thyroid Stimulating Hormone (TSH) 0.272 uIU/mL Low 0.300-4.200 [facility] TSH Qn 0.272 uIU/mL Low 0.300-4.200 [facility] Thyroid Stim Hormone (TSH)on 11-11-2024 TSH 0.272 uIU/mL Low 0.300-4.200 [facility] Comment on above: Performed By: #### L 500.2500, L100.0100, L501.4021 #### [facility] Laboratory [address] [place], [address] Total proteinOrdered By: Rosa Donahue on 11-11-2024 Protein [Mass/Vol] 6.6 g/dL 5.9-8.4 [facility] 12 Lead EKGon 11-10-2024 12 Lead EKG [facility] Cardiovascular Services [address] [place] [address] 12 Lead EKG 11/10/24 1518 MR#: [id number] Acct: [id number] Name: CLEMENTINA HOOD Rep #: [id number] : 1955 69 From: Noemi Parks MD Attending Dr: Dr. Chana Staley MD Status: DIS NADEGE Ordering Dr: Bennie Dorsey DO Date: 11/10/24 Location: IN3 Sex: F C Admitted: 11/10/24 Test Reason : SOB Blood Pressure : */* mmHG Vent. Rate : 73 BPM Atrial Rate : 73 BPM P-R Int : 134 ms QRS Dur : 68 ms QT Int : 376 ms P-R-T Axes : 70 12 50 degrees QTcB Int : 414 ms Normal sinus rhythm Normal ECG Confirmed by AYDEE MCGARRY, NOEL ([id number]), content editor FLAKO NORMAN ([id number]) on 11/14/2024 10:49:45 AM Referred By: Confirmed By: NOEL PARKS MD 11/14/24 1049 Date Noemi Parks MD CC: Dr. Chana Staley MD; Dr. Bennie Dorsey DO; No Primary Care Physician Signed Normal [facility] Absolute neutrophil countOrd ered By: Bennie Dorsey on 11-10-2024 Neutrophils (Bld) [#/Vol] 2.6 10*3/uL 2.0-7.7 [facility] Anion gap in Serum or Plasma Ordered By: Bennie Dorsey on 11-10-2024 Anion gap [Moles/Vol] 13 mmol/L - [facility] BUN/creatinine ratioOrdered By: Bennie Dorsey on 11-10-2024 Urea nitrogen/Creatinine [Mass ratio] 19.8 mg/mg - [facility] Basic Metabolic Profile (BMP )on 11-10-2024 BUN/CRE 19.8 RATIO Normal - [facility] Comment on above: Performed By: #### L 500.2500, L100.0100, L501.4021 #### [facility] Laboratory [address] [place], [address] Calcium [Mass/Vol] 9.4 mg/dL Normal 7.6-11.0 [facility] Comment on above: Performed By: #### L 500.2500, L100.0100, L501.4021 #### [facility] Laboratory [address] [place], [address] Chloride [Moles/Vol] 103 mmol/L Normal 98-108 [facility] Comment on above: Performed By: #### L 500.2500, L100.0100, L501.4021 #### [facility] Laboratory [address] [place], [address] CO2 [Moles/Vol] 24.3 mmol/L Normal 21.0-32.0 [facility] Comment on above: Performed By: #### L 500.2500, L100.0100, L501.4021 #### [facility] Laboratory [address] [place] [place], [address] Creatinine [Mass/Vol] 1.21 mg/dL High 0.70-1.20 [facility] Comment on above: Performed By: #### L 500.2500, L100.0100, L501.4021 #### [facility] Laboratory [address] [place], [address] ECRCL 43.64 ml/min Low 50-250 [facility] Comment on above: Performed By: #### L 500.2500, L100.0100, L501.4021 #### [facility] Laboratory [address] [place], [address] GAP 13 Normal 5-15 [facility] Comment on above: Performed By: #### L 500.2500, L100.0100, L501.4021 #### [facility] [address] [place], [address] GFR/1.73 sq M.predicted among non-blacks MDRD (S/P/Bld) [Vol rate/Area] 48 mL/min/{1.73_m2} Low >60 [facility] Comment on above: Result Comment: mL/m in/1.73m2 CKD-EPI Creatinine Equation (2020) Performed By: #### L 500.2500, L100.0100, L501.4021 #### [facility] Laboratory [address] [place], [address] Glucose [Mass/Vol] 81 mg/dL Normal 70-99 [facility] Comment on above: Performed By: #### L 500.2500, L100.0100, L501.4021 #### [facility] [address] [place], [address] Potassium [Moles/Vol] 4.7 mmol/L Normal 3.3-5.1 [facility] Comment on above: Performed By: #### L 500.2500, L100.0100, L501.4021 #### [facility] [address] [place], [address] Sodium [Moles/Vol] 141 mmol/L Normal 133-145 [facility] Comment on above: Performed By: #### L 500.2500, L100.0100, L501.4021 #### [facility] [address] [place], [address] Urea nitrogen [Mass/Vol] 24 mg/dL High 4-19 [facility] Comment on above: Performed By: #### L 500.2500, L100.0100, L501.4021 #### [facility] [address] [place], [address] Basophil percentageOrdered B y: Bennie Garcias on 11-10-2024 Basophils/100 WBC (Bld) 0.4 % 0-1 [facility] CBC W/Diff, Automatedon 10-29 Absolute Lymph 1.32 X10 3/uL Normal 0.83-4.51 [facility] Comment on above: Performed By: #### L 500.2500, L100.0100, L501.4021 #### [facility] Laboratory [address] [place], [address] Absolute Neut 2.6 X10 3/uL Normal 2.0-7.7 [facility] Comment on above: Performed By: #### L 500.2500, L100.0100, L501.4021 #### [facility] [address] [place], [address] Basophils/100 WBC (Bld) 0.4 % Normal 0-1 [facility] Comment on above: Performed By: #### L 500.2500, L100.0100, L501.4021 #### [facility] [address] [place], [address] Eosinophils/100 WBC (Bld) 3.3 % Normal 0-5 [facility] Comment on above: Performed By: #### L 500.2500, L100.0100, L501.4021 #### [facility] Laboratory [address] [place], [address] Erythrocyte distribution width (RBC) [Ratio] 15.0 % High 11.6-14.6 [facility] Comment on above: Performed By: #### L 500.2500, L100.0100, L501.4021 #### [facility] Laboratory [address] [place], [address] Hematocrit (Bld) [Volume fraction] 43.0 % Normal 37-47 [facility] Comment on above: Performed By: #### L 500.2500, L100.0100, L501.4021 #### [facility] Laboratory [address] [place], [address] Hemoglobin (Bld) [Mass/Vol] 13.4 g/dL Normal 12.0-15.0 [facility] Comment on above: Performed By: #### L 500.2500, L100.0100, L501.4021 #### [facility] Laboratory [address] [place], [address] IG% 0.200 Normal 0.0-0.9 [facility] Comment on above: Result Comment: IG% - Immature Granulocytes (promyelocytes, myelocytes and metamyelocytes) > 1% indicates that a LEFT SHIFT is Present. Performed By: #### L 500.2500, L100.0100, L501.4021 #### [facility] [address] [place], [address] Lymphocytes/100 WBC (Bld) 29.1 % Normal 19-41 [facility] Comment on above: Performed By: #### L 500.2500, L100.0100, L501.4021 #### [facility] Laboratory [address] [place], [address] MCH (RBC) [Entitic mass] 27.6 pg Normal 27.0-32.0 [facility] Comment on above: Performed By: #### L 500.2500, L100.0100, L501.4021 #### [facility] Laboratory [address] [place], [address] MCHC (RBC) [Mass/Vol] 31.2 g/dL Low 32-36 [facility] Comment on above: Performed By: #### L 500.2500, L100.0100, L501.4021 #### [facility] Laboratory [address] [place], [address] MCV (RBC) [Entitic vol] 88.7 fL Normal 81-99 [facility] Comment on above: Performed By: #### L 500.2500, L100.0100, L501.4021 #### [facility] Laboratory [address] [place], [address] Monocytes/100 WBC (Bld) 9.0 % Normal 0-[address] [facility] Comment on above: Performed By: #### L 500.2500, L100.0100, L501.4021 #### [facility] Laboratory [address] [place], [address] Neutrophils/100 WBC (Bld) 58.0 % Normal 47-70 [facility] Comment on above: Performed By: #### L 500.2500, L100.0100, L501.4021 #### [facility] Laboratory [address] [place], [address] Nucleated RBC (Bld) [#/Vol] 0 10*3/uL Normal 0-5 [facility] Comment on above: Performed By: #### L 500.2500, L100.0100, L501.4021 #### [facility] Laboratory [address] [place], [address] Platelet mean volume (Bld) [Entitic vol] 10.1 fL Normal 6.2-12.0 [facility] Comment on above: Performed By: #### L 500.2500, L100.0100, L501.4021 #### [facility] Laboratory [address] [place], [address] Platelets (Bld) [#/Vol] 246 10*3/uL Normal 150-450 [facility] Comment on above: Performed By: #### L 500.2500, L100.0100, L501.4021 #### [facility] Laboratory [address] [place], [address] RBC (Bld) [#/Vol] 4.85 10*6/uL Normal 4.2-5.4 [facility] Comment on above: Performed By: #### L 500.2500, L100.0100, L501.4021 #### [facility] Laboratory [address] [place], [address] RDW SD 48.4 fl High 35.1-43.9 [facility] Comment on above: Performed By: #### L 500.2500, L100.0100, L501.4021 #### [facility] Laboratory [address] [place], [address] WBC (Bld) [#/Vol] 4.5 10*3/uL Normal 4.4-11.0 [facility] Comment on above: Performed By: #### L 500.2500, L100.0100, L501.4021 #### [facility] Laboratory [address] [place], [address] Carbon dioxide, total [Moles /volume] in Central venous bloodOrdered By: Bennie Dorsey on 11-10-2024 CO2 [Moles/Vol] 24.3 mmol/L 21.0-32.0 [facility] Chest 1 View (Portable)on Chest 1 View (Portable) [facility] Imaging Services [address] [place] [address] Chest 1 View (Portable) MR#: [id number] Acct: [id number] Name: CLEMENTINA HOOD Rep #: [id number] : 1955 F 69 From: Karthik Gilbert MD PCP: Care Physician,No Primary Status: REG ER Study: Chest 1 View (Portable) Date of Exam: 11/10/24 Exam# [id number] Ordering Dr: Bennie Dorsey DO EXAM: XR Chest, 1 View CLINICAL INDICATION: SHORTNESS OF BREATH TECHNIQUE: Frontal view of the chest. COMPARISON: No relevant prior studies available. FINDINGS: LUNGS AND PLEURAL SPACES: See below. HEART: Cardiomegaly with mild congestion. MEDIASTINUM: Unremarkable. Normal mediastinal contour. BONES/JOINTS: Unremarkable. No acute fracture. RAD/Chest 1 View (Portable) IMPRESSION: Cardiomegaly with mild congestion. Reading Location: [facility] CC: Dr. Bennie Dorsey DO; No Primary Care Physician [employer] Checker: Signed Normal [facility] Chloride assayOrdered By: Juan Dorsey on 11-10-2024 Chloride [Moles/Vol] 103 mmol/L 98-108 [facility] Emergency Department Summary on 11-10-2024 Emergency Department Summary [facility] Medical Records Department [address] [place] [address] Emergency Department Summary 11/10/24 MR#: [id number] Acct: [id number] Name: CLEMENTINA HOOD Rep #: [id number] : 1955 69 From: Bennie Dorsey DO PCP: Care Physician,No Primary Status:ADM NADEGE Location: [address] History of Present Illness Chief Complaint: Shortness of Breath [facility] Medical History Kidney disease Bipolar disorder Anxiety Depression Osteoporosis Smoker Chest pain Hypertension Migraines COPD (chronic obstructive pulmonary disease) Kidney disease Home Medications ???Medication ???Instructions ???Recorded ???Last Taken ???Type albuterol sulfate 2.5 mg/3 mL 2.5 mg (3 mL) inhalation Q4H PRN 0 09/12/24 11/10/24 Rx (0.083 %) solution for nebulization #25 vials furosemide 40 mg tablet (Lasix) 40 mg PO DAILY #7 tabs 09/12/24 Un known Rx fluticasone fur. 100 mcg-umeclid 1 inh inhalation DAILY 09/14/24 Un known History 62.5 mcg-vilant 25 mcg inhalat.powder (Trelegy Ellipta) gabapentin 400 mg capsule 400 mg PO Q6H 09/14/24 11/10/24 Hi story lisinopril 20 mg tablet 20 mg PO DAILY 09/14/24 Unknown Hi story lorazepam 0.5 mg tablet 0.5 mg PO Q8H PRN PRN anxiety 08/31 01/22 Unknown History metformin 500 mg tablet 500 mg PO DAILY 09/14/24 11/10/24 History quetiapine 50 mg tablet 50 mg PO QHS 09/14/24 11/09/24 His tory ropinirole 2 mg tablet 2 mg PO QHS 09/14/24 11/09/24 Hist ory trazodone 150 mg tablet 150 mg PO QHS 09/14/24 11/09/24 Hi story albuterol sulfate 90 mcg/actuation 2 puff inhalation Q6H PRN 11/09/24 Rx aerosol inhaler shortness of breath or wheezing #6.7 grams codeine 10 mg-guaifenesin 100 mg/5 10 ml PO Q6H PRN cough #237 mL 0 09/16/24 Unknown Rx mL oral liquid (Guaifenesin AC) albuterol sulfate 90 mcg/actuation 1 - 2 puff inhalation Q4H PRN DC N 10/14/24 11/09/24 Rx aerosol inhaler (Ventolin HFA) Wheezing #1 ea ipratropium 0.5 mg-albuterol 3 mg 3 ml inhalation Q6H PRN shortness 10/14/24 11/10/24 Rx (2.5 mg base)/3 mL nebulization of breath #90 mL soln Allergy/AdvReac Type Severity Reaction Status Date / Time No Known Allergies Allergy Verified 11/10/24 15:07 Surgical History History of appendectomy Social History household members: family housing: house Smoking Status: Current every day smoker tobacco type: cigarettes alcohol intake: never substance use type: does not use EXAM Physical Exam Const Vital Signs: 11/10/24 15:03 11/10/24 15:10 11/10/24 15:35 Temperature 98.3 F Temperature Source Oral Pulse Rate 73 71 Respiratory Rate 26 H 18 Respiratory Effort Short of Breath Labored Respiratory Pattern Normal Normal Blood Pressure 152/130 H Blood Pressure Mean 137 Pulse Ox 99 Oxygen Delivery Method Nasal Cannula Nasal Cannula Oxygen Flow Rate (L/min) 3 3 11/10/24 15:44 11/10/24 15:45 11/10/24 16:00 Temperature Temperature Source Pulse Rate 72 72 Respiratory Rate 26 H 20 H Respiratory Effort Respiratory Pattern Blood Pressure 127/112 H Blood Pressure Mean 119 Pulse Ox 99 99 Oxygen Delivery Method Nasal Cannula Oxygen Flow Rate (L/min) 3 11/10/24 16:00 11/10/24 16:07 11/10/24 16:15 Temperature 97.8 F Temperature Source Oral Pulse Rate 84 71 Respiratory Rate 31 H 18 Respiratory Effort Respiratory Pattern Blood Pressure 119/52 L 163/69 H 163/69 H Blood Pressure Mean 67 100 94 Pulse Ox 98 97 Oxygen Delivery Method Nasal Cannula Oxygen Flow Rate (L/min) 3 11/10/24 16:18 11/10/24 16:30 11/10/24 16:45 Temperature Temperature Source Pulse Rate 81 77 71 Respiratory Rate 25 H 16 15 Respiratory Effort Respiratory Pattern Blood Pressure 163/69 H 138/59 H 127/67 H Blood Pressure Mean 100 81 87 Pulse Ox 99 97 98 Oxygen Delivery Method Oxygen Flow Rate (L/min) 11/10/24 17:00 11/10/24 17:00 11/10/24 17:15 Temperature 98 F Temperature Source Oral Pulse Rate 76 72 77 Respiratory Rate 24 H 15 15 Respiratory Effort Respiratory Pattern Blood Pressure 158/70 H 148/63 H 158/70 H Blood Pressure Mean 99 86 95 Pulse Ox 97 97 98 Oxygen Delivery Method Oxygen Flow Rate (L/min) 11/10/24 17:30 11/10/24 17:45 11/10/24 18:00 Temperature 98.5 F Temperature Source Oral Pulse Rate 81 77 78 Respiratory Rate 13 16 22 H Respiratory Effort Respiratory Pattern Blood Pressure 153/76 H 153/76 H Blood Pressure Mean 96 101 Pulse Ox 97 95 98 Oxygen Deliver (more content not included)... Normal [facility] Eosinophil percentageOrdered By: Bennie Dorsey on 11-10-2024 Eosinophils/100 WBC (Bld) 3.3 % 0-5 [facility] Erythrocyte distribution wid th ratioOrdered By: Bennie Dorsey on 11-10-2024 Erythrocyte distribution width (RBC) [Ratio] 15.0 % High 11.6-14.6 [facility] Erythrocyte distribution wid th standard deviationOrdered By: Bennie Dorsey on 11-10-2024 Erythrocyte distribution width (RBC) [Entitic vol] 48.4 fL High 35.1-43.9 [facility] Estimation of creatinine carmela aranceOrdered By: Bennie Dorsey on 11-10-2024 Estimated Creatinine Clearance Calc 43.64 ml/min Low 50-250 [facility] GFR/1.73 sq M.predicted nick g non-blacks MDRD (S/P/Bld) [Vol rate/Area]Ordered By: Bennie Dorsey on 11-10-2024 Estimated GFR (MDRD) Non-Af Amer 48 Low >60 [facility] Comment on above: mL/min/1.73m2 CKD-EP I Creatinine Equation (2020) H AND P Exam - [place] 11-10-2024 H&P Exam - Hospitalist [facility] Medical Records Department [address] [place] [address] H P Exam - Hospitalist 11/10/24 1901 MR#: [id number] Acct: [id number] Name: CLEMENTINA HOOD Rep #: [id number] : 1955 69 From: Gaurang Donahue MD PCP: Care Physician,No Primary Status:REG ER Location: ED HPI - General General Date of Admission: 11/10/24 Date of Service: 11/10/24 Chief Complaint: Worsening shortness of breath HPI Narrative CLEMENTINA HOOD, is a 69 F history of tobacco use, COPD, who presents to the ED with concerns regarding ongoing shortness of breath, generalized fatigue for the last 3 days. There is cough without expectoration or phlegm production. There is no fever. She continues to smoke about half pack a day and is trying to quit even further. She notes that she is getting tired with activities of daily living, does not endorse any orthopnea. PND is difficult to assess as she sleeps on a recliner because of significant lower back pain and is able to do so even now. No positional changes and no shortness of breath. While presentation in the ED her blood pressure was elevated, and her oxygen requirement was at her baseline 2 L/min. While she walked with the nurse she had significant tachypnea without changes and a saturation, given the concerns of acute on chronic respiratory failure she was being admitted to observation for further evaluation and management. WBC 4.5, hemoglobin 13.4, platelet count 246, sodium 141, potassium 4.7, BUN 24, creatinine 1.2 high-sensitivity troponin 19 NT proBNP 392 PFSH Medical History Kidney disease Bipolar disorder Anxiety Depression Osteoporosis Smoker Chest pain Hypertension Migraines COPD (chronic obstructive pulmonary disease) Kidney disease Home Medications ???Medication ???Instructions ???Recorded ???Last Taken ???Type albuterol sulfate 2.5 mg/3 mL 2.5 mg (3 mL) inhalation Q4H PRN 0 09/12/24 Unknown Rx (0.083 %) solution for nebulization #25 vials furosemide 40 mg tablet (Lasix) 40 mg PO DAILY #7 tabs 09/12/24 Un known Rx fluticasone fur. 100 mcg-umeclid 1 inh inhalation DAILY 09/14/24 Un known History 62.5 mcg-vilant 25 mcg inhalat.powder (Trelegy Ellipta) gabapentin 400 mg capsule 400 mg PO Q6H 09/14/24 Unknown His tory lisinopril 20 mg tablet 20 mg PO DAILY 09/14/24 Unknown Hi story lorazepam 0.5 mg tablet 0.5 mg PO Q8H PRN PRN anxiety 08/31 01/22 Unknown History metformin 500 mg tablet 500 mg PO DAILY 09/14/24 Unknown H istory quetiapine 50 mg tablet 50 mg PO QHS 09/14/24 Unknown Hist ory ropinirole 2 mg tablet 2 mg PO QHS 09/14/24 Unknown Histo ry trazodone 150 mg tablet 150 mg PO QHS 09/14/24 Unknown His tory albuterol sulfate 90 mcg/actuation 2 puff inhalation Q6H PRN Unknown Rx aerosol inhaler shortness of breath or wheezing #6.7 grams codeine 10 mg-guaifenesin 100 mg/5 10 ml PO Q6H PRN cough #237 mL 0 09/16/24 Unknown Rx mL oral liquid (Guaifenesin AC) albuterol sulfate 90 mcg/actuation 1 - 2 puff inhalation Q4H PRN DC N 10/14/24 Unknown Rx aerosol inhaler (Ventolin HFA) Wheezing #1 ea ipratropium 0.5 mg-albuterol 3 mg 3 ml inhalation Q6H PRN shortness 10/14/24 Unknown Rx (2.5 mg base)/3 mL nebulization of breath #90 mL soln Allergy/AdvReac Type Severity Reaction Status Date / Time No Known Allergies Allergy Verified 11/10/24 15:07 no significant family history Surgical History History of appendectomy no surgical history Social History household members: family housing: house Smoking Status: Current every day smoker tobacco type: cigarettes alcohol intake: never substance use type: does not use Vital Signs Vital Signs Vital Signs: 11/10/24 15:03 11/10/24 15:10 11/10/24 15:35 Temperature 98.3 F Temperature Source Oral Pulse Rate 73 71 Respiratory Rate 26 H 18 Respiratory Effort Short of Breath Labored Respiratory Pattern Normal Normal Blood Pressure 152/130 H Blood Pressure Mean 137 Pulse Ox 99 Oxygen Delivery Method Nasal Cannula Nasal Cannula Oxygen Flow Rate (L/min) 3 3 11/10/24 15:44 11/10/24 15:45 11/10/24 16:00 Temperature Temperature Source Pulse Rate 72 72 Respiratory Rate 26 H 20 H Respiratory Effort Respiratory Pattern Blood Pressure 127/112 H Blood Pressure Mean 119 Pulse Ox 99 99 Oxygen Delivery Method Nasal Cannula Oxygen Flow Rate (L/min) 3 11/10/24 16:00 11/10/24 16:07 11/10/24 16:15 Temperature 97.8 F Temperature Source Oral Pulse Rate 84 71 Respiratory Rate 31 H 18 Respiratory Effort Respiratory Pa (more content not included)... Normal [facility] Hematocrit Auto (Bld) [Volum e fraction]Ordered By: Bennie Dorsey on 11-10-2024 Hematocrit (Bld) [Volume fraction] 43.0 % 37-47 [facility] Hemoglobin measurementOrdere d By: Bennie Dorsey on 11-10-2024 Hemoglobin (Bld) [Mass/Vol] 13.4 g/dL 12.0-15.0 [facility] Immature granulocytes/100 WB C Auto (Bld)Ordered By: Bennie Dorsey on 11-10-2024 Immature granulocytes/100 WBC (Bld) 0.200 % 0.0-0.9 [facility] Comment on above: IG% - Immature Granu locytes (promyelocytes, myelocytes and metamyelocytes) > 1% indicates that a LEFT SHIFT is Present. Influenza virus A and B and SARS-CoV-2 (COVID-19) and Respiratory syncytial virus RNAOrdered By: Bennie Dorsey on 11-10-2024 SARS-CoV-2 (COVID-19) RNA LEYDA+probe Ql (Unsp spec) [facility] L. pneumophila Ag Ql (U)Orde red By: Gaurang Donahue on 11-10-2024 Legionella Antigen [facility] L501.4021on 11-10-2024 Trop T High Sen 19 ng/L High <=14 [facility] Comment on above: Performed By: #### L 500.2500, L100.0100, L501.4021 #### [facility] Laboratory [address] [place], [place], [id number] L503.7505on 11-10-2024 Natriuretic peptide B (Bld) [Mass/Vol] 392 pg/mL Normal <=900 [facility] Comment on above: Result Comment: Hear t Failure Unlikely: < 300 pg/mL Heart Failure Likely < 50 Years: > 450 pg/mL 50-75 Years: > 900 pg/mL >75 Years: > 1800 pg/mL Performed By: #### L 100.0100, L500.2500 #### [facility] Laboratory [address] [place], [place], [id number] Laboratory - Chemistry and C hemistry - challengeOrdered By: Bennie Dorsey on 11-10-2024 Natriuretic peptide B (Bld) [Mass/Vol] 392 pg/mL <900 [facility] Comment on above: Heart Failure Unlike ly: < 300 pg/mLHeart Failure Likely< 50 Years: > 450 pg/mL50-75 Years: > 900 pg/mL>75 Years: > 1800 pg/mL Legionella Antigen Urineon 0 11-10-2024 LEGU Only Recommended for severe cases of pneumonia URINE, CLEAN CATCH Legionella Antigen result interpretation: L pneumo Ag Ur Ql Negative Presumptive negative for Legionella pneumophila serogroup 1 antigen in urine, suggesting no recent or current infection. Legionella Ag, Urine Negative (See interpretation below) Normal [facility] Comment on above: Performed By: #### M 100.638 #### [facility] Laboratory [address] [place], [place], [id number] Lymphocytes Auto (Unsp spec) [#/Vol]Ordered By: Bennie Dorsey on 11-10-2024 Lymphocytes (Bld) [#/Vol] 1.32 10*3/uL 0.83-4.51 [facility] Lymphocytes/100 WBC Auto (Un sp spec)Ordered By: Bennie Dorsey on 11-10-2024 Lymphocytes/100 WBC (Bld) 29.1 % 19-41 [facility] M100.678on 11-10-2024 M100.678 Pending SARS-CoV-2 (COVID 19) Negative INFLUENZA A Negative INFLUENZA B Negative RSV PCR Negative Normal [facility] Comment on above: Performed By: #### M 100.638 #### [facility] Laboratory [address] [place], [place], [id number] MCV (mean corpuscular volume ) determinationOrdered By: Bennie Dorsey on 11-10-2024 MCV (RBC) [Entitic vol] 88.7 fL 81-99 [facility] MRSA DNA LEYDA+probe Ql (Nose) Ordered By: Gaurang Donahue on 11-10-2024 MRSA (PCR) [facility] Mean corpuscular hemoglobin (MCH) determinationOrdered By: Bennie Dorsey on 11-10-2024 MCH (RBC) [Entitic mass] 27.6 pg 27.0-32.0 [facility] Mean corpuscular hemoglobin concentration (MCHC) determinationOrdered By: Bennie Dorsey on 11-10-2024 MCHC (RBC) [Mass/Vol] 31.2 g/dL Low 32-36 [facility] Mean platelet volume determi nationOrdered By: Bennie Dorsey on 11-10-2024 Platelet mean volume (Bld) [Entitic vol] 10.1 fL 6.2-12.0 [facility] Monocyte percentageOrdered B y: Bennie Dorsey on 11-10-2024 Monocytes/100 WBC (Bld) 9.0 % 0-10 [facility] Nasal methicillin resistant Staphylococcus aureus (MRSA) DNA detection by PCROrdered By: Gaurang Donahue on 11-10-2024 MRSA DNA LEYDA+probe Ql (Nose) [facility] Neutrophil percentageOrdered By: Bennie Dorsey on 11-10-2024 Neutrophils/100 WBC (Bld) 58.0 % 47-70 [facility] No Panel InformationOrdered By: Bennie Dorsey on 11-10-2024 Troponin T High Sensitivity 19 ng/L High <14 [facility] Nucleated red blood cell per centageOrdered By: Bennie Dorsey on 11-10-2024 Nucleated RBC/100 WBC (Bld) [Ratio] 0 % 0-5 [facility] Platelet countOrdered By: Juan Dorsey on 11-10-2024 Platelets (Bld) [#/Vol] 246 10*3/uL 150-450 [facility] Potassium (Unsp spec) [Mass/ Vol]Ordered By: Bennie Dorsey on 11-10-2024 Potassium [Moles/Vol] 4.7 mmol/L 3.3-5.1 [facility] RBC Auto (Bld) [#/Vol]Ordere d By: Bennie Dorsey on 11-10-2024 RBC (Bld) [#/Vol] 4.85 10*6/uL 4.2-5.4 [facility] Respiratory pathogens DNA an d RNA panel LEYDA+probe (Resp)Ordered By: Gaurang Donahue on 11-10-2024 Respiratory Panel (PCR) [facility] Respiratory pathogens detect ion panel by molecular detection methodOrdered By: Gaurang Donahue on 11-10-2024 Respiratory pathogens DNA and RNA panel LEYDA+probe (Resp) [facility] Serum creatinine measurement (mass/volume)Ordered By: Bennie Dorsey on 11-10-2024 Creatinine [Mass/Vol] 1.21 mg/dL High 0.70-1.20 [facility] Serum glucose measurement (m ass/volume)Ordered By: Bennie Dorsey on 11-10-2024 Glucose [Mass/Vol] 81 mg/dL 70-99 [facility] Serum or plasma calcium oyvani urement (mass/volume)Ordered By: Bennie Dorsey on 11-10-2024 Calcium [Mass/Vol] 9.4 mg/dL 7.6-11.0 [facility] Serum or plasma urea nitroge n measurement (mass/volume)Ordered By: Bennie Dorsey on 11-10-2024 Urea nitrogen [Mass/Vol] 24 mg/dL High 4-19 [facility] Sodium levelOrdered By: Lisa Dorsey on 11-10-2024 Sodium [Moles/Vol] 141 mmol/L 133-145 [facility] Urine Legionella pneumophila antigen detectionOrdered By: Gaurang Donahue on 11-10-2024 L. pneumophila Ag Ql (U) [facility] White blood cell (WBC) count Ordered By: Bennie Dorsey on 11-10-2024 WBC (Bld) [#/Vol] 4.5 10*3/uL 4.4-11.0 [facility] L501.4020on 10-14-2024 TROPONIN-I HS 9 pg/mL Normal 3.0-54.0 [facility] Comment on above: Result Comment: Sergey jack Note: New Test Units and Gender Specific Reference Ranges. For more information see Policy Stat Procedure [place] High Sensitivity Troponin (TNIH) and attachments. Performed By: #### L 500.2500, L100.0100, L501.4021 #### [facility] Laboratory [address] [place], [place], [address] M100.678on 10-14-2024 M100.678 SARS-CoV-2 (COVID 19 ) Negative INFLUENZA A Negative INFLUENZA B Negative RSV PCR Negative Normal [facility] Comment on above: Performed By: #### M 100.638 #### [facility] Laboratory [address] [place], [address] Troponin IOrdered By: Pako serrano on 10-14-2024 Troponin I 9 pg/mL 3.0-54.0 [facility] Comment on above: Please Note: New Alexandra t Units and Gender Specific Reference Ranges. For more information see Policy Stat Procedure [place] High Sensitivity Troponin (TNIH) and attachments. Troponin I High Sensitivity 9 pg/mL 3.0-54.0 [facility] Comment on above: Please Note: New Alexandra t Units and Gender Specific Reference Ranges. For more information see Policy Stat Procedure [place] High Sensitivity Troponin (TNIH) and attachments. 12 Lead EKGon 10-13-2024 12 Lead EKG [facility] Cardiovascular Services [address] [facility] [place] [address] 12 Lead EKG 10/13/24 2311 MR#: [id number] Acct: [id number] Name: CLEMENTINA HOOD Rep #: [id number] : 1955 69 From: Noemi Parks MD Attending Dr: Status: DEP ER Ordering Dr: Pako Fink MD Date: 10/13/24 Location: ED Sex: F C Admitted: Test Reason : SOB Blood Pressure : */* mmHG Vent. Rate : 66 BPM Atrial Rate : 66 BPM P-R Int : 140 ms QRS Dur : 74 ms QT Int : 398 ms P-R-T Axes : 57 5 45 degrees QTcB Int : 417 ms Normal sinus rhythm Normal ECG Confirmed by AYDEE MCGARRY, NOEL ([id number]), content editor TIFFANY BRAN ([id number]) on 10/17/2024 8:11:20 AM Referred By: AGA Confirmed By: NOEL PARKS MD 10/17/24 0811 Date Noemi Parks MD CC: Dr. Pako Fink MD; No Primary Care Physician Signed Normal [facility] Absolute lymphocyte countOrd ered By: Pako Fink on 10-13-2024 Lymphocytes Auto (Unsp spec) [#/Vol] 2.75 10*3/uL 0.83-4.51 [facility] Absolute neutrophil countOrd ered By: Pako Fink on 10-13-2024 Neutrophils (Bld) [#/Vol] 3.4 10*3/uL 2.0-7.7 [facility] Automated lymphocyte count a s percentage of total leukocytesOrdered By: Pako Fink on 10-13-2024 Lymphocytes/100 WBC Auto (Unsp spec) 39.2 % 19-41 [facility] BNP (brain natriuretic pepti de measurement)Ordered By: Pako Fernandezmarleny on 10-13-2024 Natriuretic peptide B (Bld) [Mass/Vol] 32.1 pg/mL 0-100 [facility] BNP,B-Type NATRIURETIC PEPTI Aida 10-13-2024 Natriuretic peptide B (Bld) [Mass/Vol] 32.1 pg/mL Normal 0-100 [facility] Comment on above: Performed By: #### L 100.0100, L500.2500 #### [facility] Laboratory [address] [place], [address] Basic Metabolic Profile (BMP )on 10-13-2024 BUN/CRE 27.4 RATIO High 10-20 [facility] Comment on above: Performed By: #### L 100.0100, L500.2500 #### [facility] Laboratory [address] [place], [address] CA,Total 9.3 mg/dL Normal 8.5-10.1 [facility] Comment on above: Performed By: #### L 100.0100, L500.2500 #### [facility] Laboratory [address] [place], [address] Chloride [Moles/Vol] 107 mmol/L Normal 98-107 [facility] Comment on above: Performed By: #### L 100.0100, L500.2500 #### [facility] Laboratory [address] [place], [address] CO2 [Moles/Vol] 30.0 mmol/L Normal 21.0-32.0 [facility] Comment on above: Performed By: #### L 100.0100, L500.2500 #### [facility] Laboratory [address] [place], [address] Creatinine [Mass/Vol] 1.64 mg/dL High 0.55-1.02 [facility] Comment on above: Result Comment: The validity of the calculated GFR GFRAA in patients over 70 years has not been determined. Clinical correlation is essential. Performed By: #### L 100.0100, L500.2500 #### [facility] Laboratory [address] [place], [address] ECRCL 33.15 ml/min Normal [facility] Comment on above: Performed By: #### L 100.0100, L500.2500 #### [facility] Laboratory [address] [place], [address] EST GFR - AA 40 mL/min Low >60 [facility] Comment on above: Result Comment: Afri can Albanian GFR Calc Performed By: #### L 100.0100, L500.2500 #### [facility] Laboratory [address] [place], [address] GAP 4 Low 5-15 [facility] Comment on above: Performed By: #### L 100.0100, L500.2500 #### [facility] Laboratory [address] [place], [address] GFR/1.73 sq M.predicted among non-blacks MDRD (S/P/Bld) [Vol rate/Area] 33 mL/min/{1.73_m2} Low >60 [facility] Comment on above: Result Comment: Non- GFR Calc Performed By: #### L 100.0100, L500.2500 #### [facility] Laboratory [address] [place], [address] Glucose [Mass/Vol] 83 mg/dL Normal 74-106 [facility] Comment on above: Performed By: #### L 100.0100, L500.2500 #### [facility] Laboratory [address] [place], [address] Potassium [Moles/Vol] 5.2 mmol/L High 3.5-5.1 [facility] Comment on above: Performed By: #### L 100.0100, L500.2500 #### [facility] Laboratory [address] [place], [address] Sodium [Moles/Vol] 141 mmol/L Normal 136-145 [facility] Comment on above: Performed By: #### L 100.0100, L500.2500 #### [facility] Laboratory [address] [place], [address] Urea nitrogen [Mass/Vol] 45 mg/dL High 7-18 [facility] Comment on above: Performed By: #### L 100.0100, L500.2500 #### [facility] Laboratory [address] [place], [address] Basophil percentageOrdered B y: Pako Fink on 10-13-2024 Basophils/100 WBC (Bld) 0.6 % 0-1 [facility] Blood urea nitrogen (BUN)/cr eatinine ratioOrdered By: Pako Fink on 10-13-2024 Urea nitrogen/Creatinine [Mass ratio] 27.4 mg/mg High 10-20 [facility] CBC W/Diff, Automatedon 10-01 Absolute Lymph 2.75 X10 3/uL Normal 0.83-4.51 [facility] Comment on above: Performed By: #### L 100.0100, L500.2500 #### [facility] Laboratory [address] [place], [address] Absolute Neut 3.4 X10 3/uL Normal 2.0-7.7 [facility] Comment on above: Performed By: #### L 100.0100, L500.2500 #### [facility] Laboratory [address] [place], [address] Basophils/100 WBC (Bld) 0.6 % Normal 0-1 [facility] Comment on above: Performed By: #### L 100.0100, L500.2500 #### [facility] Laboratory [address] [place], [address] Eosinophils/100 WBC (Bld) 4.3 % Normal 0-5 [facility] Comment on above: Performed By: #### L 100.0100, L500.2500 #### [facility] Laboratory [address] [place], [address] Erythrocyte distribution width (RBC) [Ratio] 15.1 % High 11.6-14.6 [facility] Comment on above: Performed By: #### L 100.0100, L500.2500 #### [facility] Laboratory [address] [place], [address] Hematocrit (Bld) [Volume fraction] 40.1 % Normal 37-47 [facility] Comment on above: Performed By: #### L 100.0100, L500.2500 #### [facility] Laboratory [address] [place], [address] Hemoglobin (Bld) [Mass/Vol] 12.8 g/dL Normal 12.0-15.0 [facility] Comment on above: Performed By: #### L 100.0100, L500.2500 #### [facility] Laboratory [address] [place], [address] IG% 0.600 Normal 0.0-0.9 [facility] Comment on above: Result Comment: IG% - Immature Granulocytes (promyelocytes, myelocytes and metamyelocytes) > 1% indicates that a LEFT SHIFT is Present. Performed By: #### L 100.0100, L500.2500 #### [facility] Laboratory [address] [place], [address] Lymphocytes/100 WBC (Bld) 39.2 % Normal 19-41 [facility] Comment on above: Performed By: #### L 100.0100, L500.2500 #### [facility] Laboratory [address] [place], [address] MCH (RBC) [Entitic mass] 28.1 pg Normal 27.0-32.0 [facility] Comment on above: Performed By: #### L 100.0100, L500.2500 #### [facility] Laboratory [address] [place], [address] MCHC (RBC) [Mass/Vol] 31.9 g/dL Low 32-36 [facility] Comment on above: Performed By: #### L 100.0100, L500.2500 #### [facility] Laboratory [address] [place], [address] MCV (RBC) [Entitic vol] 88.1 fL Normal 81-[address] [facility] Comment on above: Performed By: #### L 100.0100, L500.2500 #### [facility] Laboratory [address] [place], [address] Monocytes/100 WBC (Bld) 7.1 % Normal 0-[address] [facility] Comment on above: Performed By: #### L 100.0100, L500.2500 #### [facility] Laboratory [address] [place], [address] Neutrophils/100 WBC (Bld) 48.2 % Normal 47-70 [facility] Comment on above: Performed By: #### L 100.0100, L500.2500 #### [facility] Laboratory [address] [place], [address] Nucleated RBC (Bld) [#/Vol] 0 10*3/uL Normal 0-5 [facility] Comment on above: Performed By: #### L 100.0100, L500.2500 #### [facility] Laboratory [address] [place], [address] Platelet mean volume (Bld) [Entitic vol] 9.8 fL Normal 6.2-12.0 [facility] Comment on above: Performed By: #### L 100.0100, L500.2500 #### [facility] Laboratory [address] [place], [address] Platelets (Bld) [#/Vol] 275 10*3/uL Normal 150-450 [facility] Comment on above: Performed By: #### L 100.0100, L500.2500 #### [facility] Laboratory [address] [place], [address] RBC (Bld) [#/Vol] 4.55 10*6/uL Normal 4.2-5.4 [facility] Comment on above: Performed By: #### L 100.0100, L500.2500 #### [facility] Laboratory [address] [place], [address] RDW SD 48.6 fl High 35.1-43.9 [facility] Comment on above: Performed By: #### L 100.0100, L500.2500 #### [facility] Laboratory [address] [place] [place], [address] WBC (Bld) [#/Vol] 7.0 10*3/uL Normal 4.4-11.0 [facility] Comment on above: Performed By: #### L 100.0100, L500.2500 #### [facility] Laboratory [address] [place], [address] Carbon dioxide measurementOr dered By: Pako Fink on 10-13-2024 CO2 [Moles/Vol] 30.0 mmol/L 21.0-32.0 [facility] Chest 1 View (Portable)on Chest 1 View (Portable) [facility] Imaging Services [address] [place] [address] Chest 1 View (Portable) MR#: [id number] Acct: [id number] Name: CLEMENTINA HOOD Rep #: [id number] : 1955 F 69 From: Rey Aranda PCP: Care Physician,No Primary Status: REG ER Study: Chest 1 View (Portable) Date of Exam: 10/13/24 Exam# [id number] Ordering Dr: Pako Fink MD PROCEDURE: Chest radiograph REASON FOR EXAM: Shortness of breath TECHNIQUE: Frontal view of the chest COMPARISON: 09/12/2024 FINDINGS: Cardiomediastinal silhouette is within normal limits. Lungs are clear. No sizable pneumothorax. RAD/Chest 1 View (Portable) IMPRESSION: No acute airspace abnormality. [facility] CC: Dr. Pako Fink MD; No Primary Care Physician Electric Distribution Checker: Signed Normal [facility] Chloride measurementOrdered By: Pako Fink on 10-13-2024 Chloride [Moles/Vol] 107 mmol/L 98-107 [facility] Emergency Department Summary on 10-13-2024 Emergency Department Summary [facility] Medical Records Department [address] [place] [address] Emergency Department Summary 10/13/24 MR#: [id number] Acct: [id number] Name: CLEMENTINA HOOD Rep #: [id number] : 1955 69 From: Pako Fink MD PCP: Care Physician,No Primary Status:REG ER Location: ED HPI History of Present Illness Chief Complaint: Shortness of Breath Narrative Narrative: 69-year-old female past medical history of COPD presents with shortness of breath cough that she has had for the last month. She relates history that she was diagnosed with RSV, and was hospitalized. She was sent home on oxygen approximately 3 L that she supposed to wear. Currently, she is living in a motel because she moved up here from [place]. She presents via EMS with increasing shortness of breath over the last few days with cough. She also states that over the last 4 to 5 hours she has had chest pain and tightness as well. She also complains of bilateral leg swelling but denies history of CHF. She is a smoker and is down to half a pack a day as she was smoking 2 packs a day. [facility] Medical History Kidney disease Bipolar disorder Anxiety Depression Osteoporosis Smoker Chest pain Hypertension Migraines COPD (chronic obstructive pulmonary disease) Kidney disease Home Medications ???Medication ???Instructions ???Recorded ???Last Taken ???Type albuterol sulfate 2.5 mg/3 mL 2.5 mg (3 mL) inhalation Q4H PRN 0 09/12/24 Unknown Rx (0.083 %) solution for nebulization #25 vials furosemide 40 mg tablet (Lasix) 40 mg PO DAILY #7 tabs 09/12/24 Un known Rx fluticasone fur. 100 mcg-umeclid 1 inh inhalation DAILY 09/14/24 Un known History 62.5 mcg-vilant 25 mcg inhalat.powder (Trelegy Ellipta) gabapentin 400 mg capsule 400 mg PO Q6H 09/14/24 Unknown His tory lisinopril 20 mg tablet 20 mg PO DAILY 09/14/24 Unknown Hi story lorazepam 0.5 mg tablet 0.5 mg PO Q8H PRN PRN anxiety 08/31 01/22 Unknown History metformin 500 mg tablet 500 mg PO DAILY 09/14/24 Unknown H istory quetiapine 50 mg tablet 50 mg PO QHS 09/14/24 Unknown Hist ory ropinirole 2 mg tablet 2 mg PO QHS 09/14/24 Unknown Histo ry trazodone 150 mg tablet 150 mg PO QHS 09/14/24 Unknown His tory albuterol sulfate 90 mcg/actuation 2 puff inhalation Q6H PRN Unknown Rx aerosol inhaler shortness of breath or wheezing #6.7 grams codeine 10 mg-guaifenesin 100 mg/5 10 ml PO Q6H PRN cough #237 mL 0 09/16/24 Unknown Rx mL oral liquid (Guaifenesin AC) nicotine 14 mg/24 hr daily 14 mg transdermal DAILY #30 ea Unknown Rx transdermal patch prednisone 20 mg tablet 20 mg PO DAILY #10 tabs 09/16/24 U nknown Rx tramadol 100 mg tablet 100 mg PO Q6H PRN pain #28 tabs Unknown Rx albuterol sulfate 90 mcg/actuation 1 - 2 puff inhalation Q4H PRN DC N 10/14/24 Unknown Rx aerosol inhaler (Ventolin HFA) Wheezing #1 ea ipratropium 0.5 mg-albuterol 3 mg 3 ml inhalation Q6H PRN shortness 10/14/24 Unknown Rx (2.5 mg base)/3 mL nebulization of breath #90 mL soln prednisone 20 mg tablet 40 mg (2 x 20 mg) PO DAILY 7 days 10/14/24 Unknown Rx #14 tabs Allergy/AdvReac Type Severity Reaction Status Date / Time No Known Allergies Allergy Verified 10/13/24 22:51 Surgical History History of appendectomy Social History household members: family housing: house Smoking Status: Current every day smoker tobacco type: cigarettes alcohol intake: never substance use type: does not use ROS ROS ED ROS Narrative Constitutional: No fever, no chills. HEENT: No sore throat. No neck pain. No loss of vision. No rhinorrhea. Cardiovascular: Positive chest tightness/chest pain. No palpitations. Bilateral pedal edema. Respiratory: Positive cough, increasing shortness of breath and dyspnea on exertion. Abdominal: No abdominal pain. No nausea. No vomiting. Genitourinary: No dysuria. No hematuria. Musculoskeletal: No myalgias. No arthralgias. Neurologic: No headaches. No dizziness. No lightheadedness. Skin: No rash. No change in color. Psychiatric: No depression. No anxiety. EXAM Physical Exam Narrative Exam Narrative: Afebrile. Vital signs noted. Nontoxic-appearing. Cardiovascular examination reveals a regular rate and rhythm. Respiratory examination shows lungs clear to auscultation bilaterally with diminished sounds at the bilateral bases. She has slightly prolonged expiratory phase but no overt wheezing, no stridor. Abdomen is soft and nontender with positive bowel sounds. Neurological examination is nonfocal and nonlateralizing. Trace pedal edema bilaterally, equal and symmetric. Const (more content not included)... Normal [facility] Eosinophil percentageOrdered By: Pako Fink on 10-13-2024 Eosinophils/100 WBC (Bld) 4.3 % 0-5 [facility] Erythrocyte distribution wid th ratioOrdered By: Pako Fink on 10-13-2024 Erythrocyte distribution width (RBC) [Ratio] 15.1 % High 11.6-14.6 [facility] Erythrocyte distribution wid th standard deviationOrdered By: Pako Fink on 10-13-2024 Erythrocyte distribution width (RBC) [Entitic vol] 48.6 fL High 35.1-43.9 [facility] Erythrocyte distribution width (RBC) [Ratio] 48.6 fl High 35.1-43.9 [facility] Estimated glomerular filtrat ion rate (GFR) AmericanOrdered By: Pako Fink on 10-13-2024 Estimated GFR (MDRD) Amer 40 mL/min Low >60 [facility] Comment on above: GFR Calc Estimation of creatinine carmela aranceOrdered By: Pako Fink on 10-13-2024 Estimated Creatinine Clearance Calc 33.15 ml/min [facility] Glomerular filtration rate ( GFR) estimationOrdered By: Pako Fink on 10-13-2024 Estimated GFR (MDRD) Non-Af Amer 33 mL/min Low >60 [facility] Comment on above: Non- GFR Calc GFR/1.73 sq M.predicted among non-blacks MDRD (S/P/Bld) [Vol rate/Area] 33 mL/min/{1.73_m2} Low >60 [facility] Comment on above: Non- GFR Calc Glucose measurementOrdered B y: Pako Fink on 10-13-2024 Glucose [Mass/Vol] 83 mg/dL 74-106 [facility] Hematocrit Auto (Bld) [Volum e fraction]Ordered By: Pako Fink on 10-13-2024 Hematocrit (Bld) [Volume fraction] 40.1 % 37-47 [facility] Hemoglobin measurementOrdere d By: Pako Fink on 10-13-2024 Hemoglobin (Bld) [Mass/Vol] 12.8 g/dL 12.0-15.0 [facility] Immature granulocytes/100 WB C Auto (Bld)Ordered By: Pako Fink on 10-13-2024 Immature granulocytes/100 WBC (Bld) 0.600 % 0.0-0.9 [facility] Comment on above: IG% - Immature Granu locytes (promyelocytes, myelocytes and metamyelocytes) > 1% indicates that a LEFT SHIFT is Present. Influenza virus A and B and SARS-CoV-2 (COVID-19) and Respiratory syncytial virus RNAOrdered By: Pako Fink on 10-13-2024 SARS-CoV-2 (COVID-19) RNA LEYDA+probe Ql (Unsp spec) [facility] L501.5425on 10-13-2024 TROPONIN-I HS 8 pg/mL Normal 3.0-54.0 [facility] Comment on above: Order Comment: 1Y Result Comment: Sergey jack Note: New Test Units and Gender Specific Reference Ranges. For more information see Policy Stat Procedure [place] High Sensitivity Troponin (TNIH) and attachments. Performed By: #### L 100.0100, L500.2500 #### [facility] Laboratory [address] [place] [address], [address] Lymphocytes Auto (Unsp spec) [#/Vol]Ordered By: Pako Fink on 10-13-2024 Lymphocytes (Bld) [#/Vol] 2.75 10*3/uL 0.83-4.51 [facility] Lymphocytes/100 WBC Auto (Un sp spec)Ordered By: Pako Fink on 10-13-2024 Lymphocytes/100 WBC (Bld) 39.2 % 19-41 [facility] MCV (mean corpuscular volume ) determinationOrdered By: Pako Fink on 10-13-2024 MCV (RBC) [Entitic vol] 88.1 fL 81-99 [facility] Mean corpuscular hemoglobin (MCH) determinationOrdered By: Pako Fink on 10-13-2024 MCH (RBC) [Entitic mass] 28.1 pg 27.0-32.0 [facility] Mean corpuscular hemoglobin concentration (MCHC) determinationOrdered By: Pako Fink on 10-13-2024 MCHC (RBC) [Mass/Vol] 31.9 g/dL Low 32-36 [facility] Mean platelet volume determi nationOrdered By: Pako Fink on 10-13-2024 Platelet mean volume (Bld) [Entitic vol] 9.8 fL 6.2-12.0 [facility] Monocyte percentageOrdered B y: Pako Fink on 10-13-2024 Monocytes/100 WBC (Bld) 7.1 % 0-10 [facility] Neutrophil percentageOrdered By: Pako Fink on 10-13-2024 Neutrophils/100 WBC (Bld) 48.2 % 47-70 [facility] Nucleated red blood cell per centageOrdered By: Pako Fink on 10-13-2024 Nucleated RBC/100 WBC (Bld) [Ratio] 0 % 0-5 [facility] Platelet countOrdered By: Juvencio Fink on 10-13-2024 Platelets (Bld) [#/Vol] 275 10*3/uL 150-450 [facility] Potassium measurementOrdered By: Pako Fink on 10-13-2024 Potassium [Moles/Vol] 5.2 mmol/L High 3.5-5.1 [facility] RBC Auto (Bld) [#/Vol]Ordere d By: Pako Fink on 10-13-2024 RBC (Bld) [#/Vol] 4.55 10*6/uL 4.2-5.4 [facility] Serum anion gap measurementO rdered By: Pako Fink on 10-13-2024 Anion gap [Moles/Vol] 4 mmol/L Low 5-15 [facility] Serum or plasma calcium yovani urement (mass/volume)Ordered By: Pako Fink on 10-13-2024 Calcium [Mass/Vol] 9.3 mg/dL 8.5-10.1 [facility] Serum or plasma creatinine m easurement (mass/volume)Ordered By: Pako Fink on 10-13-2024 Creatinine [Mass/Vol] 1.64 mg/dL High 0.55-1.02 [facility] Comment on above: The validity of the calculated GFR & GFRAA in patients over 70 years has not been determined. Clinical correlation is essential. Serum or plasma urea nitroge n measurement (mass/volume)Ordered By: Pako Fink on 10-13-2024 Urea nitrogen [Mass/Vol] 45 mg/dL High 7-18 [facility] Sodium levelOrdered By: Pako Fink on 10-13-2024 Sodium [Moles/Vol] 141 mmol/L 136-145 [facility] White blood cell (WBC) count Ordered By: Pako Fink on 10-13-2024 WBC (Bld) [#/Vol] 7.0 10*3/uL 4.4-11.0 [facility] Bedside Glucoseon 09-16-2024 FINGERSTICK GLU 141 mg/dL High 74-106 [facility] Comment on above: Result Comment: SHELDON GEMENT OF PATIENT CARE PER NURSING PROTOCOL Performed By: #### L 500.2500, L100.0100, L501.4021 #### [facility] Laboratory [address] [place], [address] FINGERSTICK GLU 159 mg/dL High 74-106 [facility] Comment on above: Result Comment: SHELDON GEMENT OF PATIENT CARE PER NURSING PROTOCOL Performed By: #### L 100.0100, L500.2500 #### [facility] Laboratory [address] [place], [address] Discharge Instructionon 08-31 Discharge Instruction [facility] Medical Records Department [address] [place] [address] Instructions for Home/Discharge Instructions 09/16/24 1348 MR#: [id number] Acct: [id number] Name: CLEMENTINA HOOD Rep #: [id number] : 1955 69 From: Karthik Rodrigues DO PCP: Care Physician,No Primary Status:ADM IN Discharge Instructions Diet Discharge Diet: No restrictions DC O2, CPAP, BIPAP needs RN Home O2 Qualification: Home O2 Qualification: Is the patient on home oxygen No 09/16/24 13:36 Home O2 Qualification: AT REST 1- Pulse Ox at rest 96 09/16/24 13:36 Home O2 Qualification: WITH AMBULATION 1- Pulse Ox with ambulation 84 09/16/24 13:36 1- Oxygen Flow Rate with 2 09/16/24 13:36 ambulation 2- Pulse Ox with ambulation 90 09/16/24 13:36 2- Oxygen Flow Rate with 2 09/16/24 13:36 ambulation 3- Pulse Ox with ambulation 60 09/16/24 13:08 3- Oxygen Flow Rate with 4 09/16/24 13:08 ambulation 4- Pulse Ox with ambulation 56 09/16/24 13:08 4- Oxygen Flow Rate with 6 09/16/24 13:08 ambulation 4- Stopped test - Unable to Yes 09/16/24 13:08 obtain pulse ox >89% w/ max oxyg Home O2 Discharge instructions: Yes Type of respiratory needs?: Oxygen Oxygen frequency: With Ambulation Oxygen liters per minute during Ambulation: 2 L Dressing / Incision Discharge Activity: Return to Normal Activity Weight Bearing Status: Full weight bearing Follow Up Care Test Results: Test results from this visit will be discussed in further detail at your follow-up appointment, if applicable. Discharge Plan Admission Admit Date/Time: 09/14/24 16:43 Primary Reason for Your Visit: RSV infection, hypoxia Attending Provider: Karthik Rodrigues Primary Care Provider: Care Physician,No Primary Consulting Providers: Gladis Luna Instructions Additional Instructions / Restrictions: Use oxygen at 2 L when ambulating, you do not require oxygen at rest Refrain from smoking Discharge Orders/Prescriptions Prescriptions: New nicotine 14 mg/24 hr Patch 24 Hour 14 mg transdermal DAILY Qty: 30 0RF tramadol 100 mg tablet 100 mg PO Q6H PRN (Reason: pain) Qty: 28 0RF Rx Instructions: May use for headache, may take with 650 mg of Tylenol if desired prednisone 20 mg tablet 20 mg PO DAILY Qty: 10 0RF Rx Instructions: 1 daily for 10 days then stop the medication albuterol sulfate 90 mcg/actuation HFA aerosol inhaler 2 puff inhalation Q6H PRN (Reason: shortness of breath or wheezing) Qty: 6.7 0RF Continued albuterol sulfate 2.5 mg /3 mL (0.083 %) solution for nebulization 2.5 mg inhalation Q4H PRN Qty: 25 0RF Rx Instructions: Use q4 hours and PRN for wheezing furosemide [Lasix] 40 mg tablet 40 mg PO DAILY Qty: 7 0RF lorazepam 0.5 mg tablet 0.5 mg PO Q8H PRN PRN (Reason: anxiety) Trelebita Ellipta 100-62.5-25 mcg blister with device 1 inh inhalation DAILY gabapentin 400 mg capsule 400 mg PO Q6H metformin 500 mg tablet 500 mg PO DAILY lisinopril 20 mg tablet 20 mg PO DAILY ropinirole 2 mg tablet 2 mg PO QHS trazodone 150 mg tablet 150 mg PO QHS quetiapine 50 mg tablet 50 mg PO QHS Discontinued azithromycin 250 mg tablet 250 mg PO DAILY Qty: 4 0RF tramadol 50 mg tablet 50 mg PO Q8H PRN PRN (Reason: pain) prednisone 20 mg tablet 60 mg PO Q8 Referrals / Follow Up: Care Physician,No Primary [Primary Care Provider] - Varsha Avila, [employer] [[employer]] - Within 2 Weeks (Call for an appointment) Disposition Disposition (needs filled in before D/C Order can be placed): Home, Self Care 09/16/24 1420 Karthik Rodrigues DO CC: Dr. Gladis Luna DO; No Primary Care Physician Signed Normal [facility] Glucose measurement at [facility] deOrdered By: Karthik Rodrigues on 09-16-2024 Bedside Glucose (Misc Panel) 141 mg/dL High 74-106 [facility] Comment on above: MANAGEMENT OF PATIEN T CARE PER NURSING PROTOCOL Glucose [Mass/Vol] 141 mg/dL High 74-106 [facility] Comment on above: MANAGEMENT OF PATIEN T CARE PER NURSING PROTOCOL Absolute lymphocyte countOrd ered By: Gladis Luna on 09-15-2024 Lymphocytes Auto (Unsp spec) [#/Vol] 0.54 10*3/uL Low 0.83-4.51 [facility] Absolute neutrophil countOrd ered By: Gladis Luna on 09-15-2024 Neutrophils (Bld) [#/Vol] 5.8 10*3/uL 2.0-7.7 [facility] Albumin to globulin ratioOrd ered By: Gladis Luna on 09-15-2024 Albumin/Globulin [Mass ratio] 0.8 {ratio} Low 0.9-2.4 [facility] Automated lymphocyte count a s percentage of total leukocytesOrdered By: Gladis Luna on 09-15-2024 Lymphocytes/100 WBC Auto (Unsp spec) 8.4 % Low 19-41 [facility] Basophil percentageOrdered B y: Gladis Luna on 09-15-2024 Basophils/100 WBC (Bld) 0.0 % 0-1 [facility] Bedside Glucoseon 09-15-2024 FINGERSTICK GLU 142 mg/dL High 74-106 [facility] Comment on above: Result Comment: SHELDON GEMENT OF PATIENT CARE PER NURSING PROTOCOL Performed By: #### L 100.0100, L500.2500 #### [facility] Laboratory [address] [place], [address] FINGERSTICK GLU 137 mg/dL High 74-106 [facility] Comment on above: Result Comment: SHELDON GEMENT OF PATIENT CARE PER NURSING PROTOCOL Performed By: #### L 501.080 #### [facility] Laboratory [address] [place], [address] FINGERSTICK GLU 140 mg/dL High 74-106 [facility] Comment on above: Result Comment: SHELDON GEMENT OF PATIENT CARE PER NURSING PROTOCOL Performed By: #### M 100.638 #### [facility] Laboratory [address] [place], [address] FINGERSTICK GLU 191 mg/dL High 74-106 [facility] Comment on above: Result Comment: SHELDON GEMENT OF PATIENT CARE PER NURSING PROTOCOL Performed By: #### M 100.638 #### [facility] Laboratory [address] [place], [address] Bilirubin, totalOrdered By: Gladis Luna on 09-15-2024 Bilirubin [Mass/Vol] 0.30 mg/dL 0.20-1.00 [facility] Comment on above: For patients on eltr ombopag therapy, use of Dimension [place] TBIL is not recommended. Blood urea nitrogen (BUN)/cr eatinine ratioOrdered By: Gladis Luna on 09-15-2024 Urea nitrogen/Creatinine [Mass ratio] 20.8 mg/mg High 10-20 [facility] CBC W/Diff, Automatedon - Absolute Lymph 0.54 X10 3/uL Low 0.83-4.51 [facility] Comment on above: Performed By: #### L 100.0100, L500.2500 #### [facility] Laboratory [address] [place], [address] Absolute Neut 5.8 X10 3/uL Normal 2.0-7.7 [facility] Comment on above: Performed By: #### L 100.0100, L500.2500 #### [facility] Laboratory [address] [place], [address] Basophils/100 WBC (Bld) 0.0 % Normal 0-1 [facility] Comment on above: Performed By: #### L 100.0100, L500.2500 #### [facility] Laboratory [address] [place], [address] Eosinophils/100 WBC (Bld) 0.0 % Normal 0-5 [facility] Comment on above: Performed By: #### L 100.0100, L500.2500 #### [facility] Laboratory [address] [place], [address] Erythrocyte distribution width (RBC) [Ratio] 15.7 % High 11.6-14.6 [facility] Comment on above: Performed By: #### L 100.0100, L500.2500 #### [facility] Laboratory [address] [place], [address] Hematocrit (Bld) [Volume fraction] 42.4 % Normal 37-47 [facility] Comment on above: Performed By: #### L 100.0100, L500.2500 #### [facility] Laboratory [address] [place], [address] Hemoglobin (Bld) [Mass/Vol] 13.2 g/dL Normal 12.0-15.0 [facility] Comment on above: Performed By: #### L 100.0100, L500.2500 #### [facility] Laboratory [address] [place], [address] IG% 0.500 Normal 0.0-0.9 [facility] Comment on above: Result Comment: IG% - Immature Granulocytes (promyelocytes, myelocytes and metamyelocytes) > 1% indicates that a LEFT SHIFT is Present. Performed By: #### L 100.0100, L500.2500 #### [facility] Laboratory [address] [place], [address] Lymphocytes/100 WBC (Bld) 8.4 % Low 19-41 [facility] Comment on above: Performed By: #### L 100.0100, L500.2500 #### [facility] Laboratory [address] [place], [address] MCH (RBC) [Entitic mass] 27.6 pg Normal 27.0-32.0 [facility] Comment on above: Performed By: #### L 100.0100, L500.2500 #### [facility] Laboratory [address] [place], [address] MCHC (RBC) [Mass/Vol] 31.1 g/dL Low 32-36 [facility] Comment on above: Performed By: #### L 100.0100, L500.2500 #### [facility] Laboratory [address] [place], [address] MCV (RBC) [Entitic vol] 88.7 fL Normal 81-[address] [facility] Comment on above: Performed By: #### L 100.0100, L500.2500 #### [facility] Laboratory [address] [place], [address] Monocytes/100 WBC (Bld) 1.3 % Normal 0-10 [facility] Comment on above: Performed By: #### L 100.0100, L500.2500 #### [facility] Laboratory [address] [place], [address] Neutrophils/100 WBC (Bld) 89.8 % High 47-70 [facility] Comment on above: Performed By: #### L 100.0100, L500.2500 #### [facility] Laboratory [address] [place], [address] Nucleated RBC (Bld) [#/Vol] 0 10*3/uL Normal 0-5 [facility] Comment on above: Performed By: #### L 100.0100, L500.2500 #### [facility] Laboratory [address] [place], [address] Platelet mean volume (Bld) [Entitic vol] 9.6 fL Normal 6.2-12.0 [facility] Comment on above: Performed By: #### L 100.0100, L500.2500 #### [facility] Laboratory [address] [place], [address] Platelets (Bld) [#/Vol] 257 10*3/uL Normal 150-450 [facility] Comment on above: Performed By: #### L 100.0100, L500.2500 #### [facility] Laboratory [address] [place], [address] RBC (Bld) [#/Vol] 4.78 10*6/uL Normal 4.2-5.4 [facility] Comment on above: Performed By: #### L 100.0100, L500.2500 #### [facility] Laboratory [address] [place], [address] RDW SD 51.0 fl High 35.1-43.9 [facility] Comment on above: Performed By: #### L 100.0100, L500.2500 #### [facility] Laboratory [address] [place], [address] WBC (Bld) [#/Vol] 6.4 10*3/uL Normal 4.4-11.0 [facility] Comment on above: Performed By: #### L 100.0100, L500.2500 #### [facility] Laboratory [address] [place], [address] Carbon dioxide measurementOr dered By: Gladis Luna on 09-15-2024 CO2 [Moles/Vol] 29.0 mmol/L 21.0-32.0 [facility] Chloride measurementOrdered By: Gladis Luna on 09-15-2024 Chloride [Moles/Vol] 102 mmol/L 98-107 [facility] Comprehensive Metabolic Prof ilon 09-15-2024 Albumin [Mass/Vol] 3.1 g/dL Low 3.2-5.0 [facility] Comment on above: Performed By: #### L 100.0100, L500.2500 #### [facility] Laboratory [address] [place], [address] Albumin/Globulin [Mass ratio] 0.8 {ratio} Low 0.9-2.4 [facility] Comment on above: Performed By: #### L 100.0100, L500.2500 #### [facility] Laboratory [address] [place], [address] ALK P 90 U/L Normal 45-117 [facility] Comment on above: Performed By: #### L 100.0100, L500.2500 #### [facility] Laboratory [address] [place], [address] ALT [Catalytic activity/Vol] 10 U/L Low 13-56 [facility] Comment on above: Performed By: #### L 100.0100, L500.2500 #### [facility] [facility] [address] [place], [address] AST [Catalytic activity/Vol] 13 U/L Low 15-37 [facility] Comment on above: Performed By: #### L 100.0100, L500.2500 #### [facility] [address] [place], [address] Bilirubin [Mass/Vol] 0.30 mg/dL Normal 0.20-1.00 [facility] Comment on above: Result Comment: For patients on eltrombopag therapy, use of Dimension [place] TBIL is not recommended. Performed By: #### L 100.0100, L500.2500 #### [facility] [address] [place], [address] BUN/CRE 20.8 RATIO High 10-20 [facility] Comment on above: Performed By: #### L 100.0100, L500.2500 #### [facility] [address] [place], [address] CA,Total 8.6 mg/dL Normal 8.5-10.1 [facility] Comment on above: Performed By: #### L 100.0100, L500.2500 #### [facility] [address] [place], [address] Chloride [Moles/Vol] 102 mmol/L Normal 98-107 [facility] Comment on above: Performed By: #### L 100.0100, L500.2500 #### [facility] [address] [place], [address] CO2 [Moles/Vol] 29.0 mmol/L Normal 21.0-32.0 [facility] Comment on above: Performed By: #### L 100.0100, L500.2500 #### [facility] [address] [place], [address] Creatinine [Mass/Vol] 1.30 mg/dL High 0.55-1.02 [facility] Comment on above: Result Comment: The validity of the calculated GFR GFRAA in patients over 70 years has not been determined. Clinical correlation is essential. Performed By: #### L 100.0100, L500.2500 #### [facility] [address] [place], [address] ECRCL 37.16 ml/min Normal [facility] Comment on above: Performed By: #### L 100.0100, L500.2500 #### [facility] [address] [place], [address] EST GFR - AA 52 mL/min Low >60 [facility] Comment on above: Result Comment: Afri can Albanian GFR Calc Performed By: #### L 100.0100, L500.2500 #### [facility] [address] [place], [address] GAP 8 Normal 5-15 [facility] Comment on above: Performed By: #### L 100.0100, L500.2500 #### [facility] [address] [place], [address] GFR/1.73 sq M.predicted among non-blacks MDRD (S/P/Bld) [Vol rate/Area] 43 mL/min/{1.73_m2} Low >60 [facility] Comment on above: Result Comment: Non- GFR Calc Performed By: #### L 100.0100, L500.2500 #### [facility] [address] [place], [address] Globulin (S) [Mass/Vol] 3.8 g/dL Normal 2.2-4.[address] [facility] Comment on above: Performed By: #### L 100.0100, L500.2500 #### [facility] [address] [place], [address] Glucose [Mass/Vol] 161 mg/dL High 74-106 [facility] Comment on above: Result Comment: Fast ing Glucose result greater than or equal to 126 mg/dL suggests DIABETES MELLITUS per A.D.A. criteria. Performed By: #### L 100.0100, L500.2500 #### [facility] [address] [place], [address] Potassium [Moles/Vol] 3.9 mmol/L Normal 3.5-5.1 [facility] Comment on above: Performed By: #### L 100.0100, L500.2500 #### [facility] [address] [place], [address] Sodium [Moles/Vol] 139 mmol/L Normal 136-145 [facility] Comment on above: Performed By: #### L 100.0100, L500.2500 #### [facility] [address] [place], [address] T PROT 6.9 g/dL Normal 6.4-8.2 [facility] Comment on above: Performed By: #### L 100.0100, L500.2500 #### [facility] [address] [place], [address] Urea nitrogen [Mass/Vol] 27 mg/dL High 7-18 [facility] Comment on above: Performed By: #### L 100.0100, L500.2500 #### [facility] [address] [place], [address] Eosinophil percentageOrdered By: Gladis Luna on 09-15-2024 Eosinophils/100 WBC (Bld) 0.0 % 0-5 [facility] Erythrocyte distribution wid th ratioOrdered By: Gladis Luna on 09-15-2024 Erythrocyte distribution width (RBC) [Ratio] 15.7 % High 11.6-14.6 [facility] Erythrocyte distribution wid th standard deviationOrdered By: Gladis Luna on 09-15-2024 Erythrocyte distribution width (RBC) [Entitic vol] 51.0 fL High 35.1-43.9 [facility] Erythrocyte distribution width (RBC) [Ratio] 51.0 fl High 35.1-43.9 [facility] Estimated glomerular filtrat ion rate (GFR) AmericanOrdered By: Gladis Luna on 09-15-2024 Estimated GFR (MDRD) Amer 52 mL/min Low >60 [facility] Comment on above: GFR Calc Estimation of creatinine carmela aranceOrdered By: Gladis Luna on 09-15-2024 Estimated Creatinine Clearance Calc 37.16 ml/min [facility] Glomerular filtration rate ( GFR) estimationOrdered By: Gladis Luna on 09-15-2024 Estimated GFR (MDRD) Non-Af Amer 43 mL/min Low >60 [facility] Comment on above: Non- GFR Calc GFR/1.73 sq M.predicted among non-blacks MDRD (S/P/Bld) [Vol rate/Area] 43 mL/min/{1.73_m2} Low >60 [facility] Comment on above: Non- GFR Calc Glucose measurementOrdered B y: Gladis Luna on 09-15-2024 Glucose [Mass/Vol] 161 mg/dL High 74-106 [facility] Comment on above: Fasting Glucose resu lt greater than or equal to 126 mg/dL suggests DIABETES MELLITUS per A.D.A. criteria. Hematocrit Auto (Bld) [Volum e fraction]Ordered By: Gladis Luna on 09-15-2024 Hematocrit (Bld) [Volume fraction] 42.4 % 37-47 [facility] Hemoglobin measurementOrdere d By: Gladis Luna on 09-15-2024 Hemoglobin (Bld) [Mass/Vol] 13.2 g/dL 12.0-15.0 [facility] Immature granulocytes/100 WB C Auto (Bld)Ordered By: Gladis Luna on 09-15-2024 Immature granulocytes/100 WBC (Bld) 0.500 % 0.0-0.9 [facility] Comment on above: IG% - Immature Granu locytes (promyelocytes, myelocytes and metamyelocytes) > 1% indicates that a LEFT SHIFT is Present. Laboratory - Chemistry and C hemistry - challengeOrdered By: Gladis Luna on 09-15-2024 AST [Catalytic activity/Vol] 13 U/L Low 15-37 [facility] Lymphocytes Auto (Unsp spec) [#/Vol]Ordered By: Gladis Luna on 09-15-2024 Lymphocytes (Bld) [#/Vol] 0.54 10*3/uL Low 0.83-4.51 [facility] Lymphocytes/100 WBC Auto (Un sp spec)Ordered By: Gladis Luna on 01-16-2025 Lymphocytes/100 WBC (Bld) 8.4 % Low 19-41 [facility] MCV (mean corpuscular volume ) determinationOrdered By: Gladis Luna on 09-15-2024 MCV (RBC) [Entitic vol] 88.7 fL 81-99 [facility] Magnesiumon 09-15-2024 Magnesium [Mass/Vol] 2.2 mg/dL Normal 1.6-2.6 [facility] Comment on above: Performed By: #### L 500.2500, L100.0100, L501.4021 #### [facility] [address] [place], [address] Magnesium measurementOrdered By: Gladis Luna on 09-15-2024 Magnesium [Mass/Vol] 2.2 mg/dL 1.6-2.6 [facility] Mean corpuscular hemoglobin (MCH) determinationOrdered By: Gladis Luna on 09-15-2024 MCH (RBC) [Entitic mass] 27.6 pg 27.0-32.0 [facility] Mean corpuscular hemoglobin concentration (MCHC) determinationOrdered By: Gladis Luna on 09-15-2024 MCHC (RBC) [Mass/Vol] 31.1 g/dL Low 32-36 [facility] Mean platelet volume determi nationOrdered By: Gladis Luna on 09-15-2024 Platelet mean volume (Bld) [Entitic vol] 9.6 fL 6.2-12.0 [facility] Monocyte percentageOrdered B y: Gladis Luna on 09-15-2024 Monocytes/100 WBC (Bld) 1.3 % 0-10 [facility] Neutrophil percentageOrdered By: Gladis Luna on 09-15-2024 Neutrophils/100 WBC (Bld) 89.8 % High 47-70 [facility] Nucleated red blood cell per centageOrdered By: Gladis Luna on 09-15-2024 Nucleated RBC/100 WBC (Bld) [Ratio] 0 % 0-5 [facility] Phosphoruson 09-15-2024 Phosphate [Mass/Vol] 3.7 mg/dL Normal 2.5-4.9 [facility] Comment on above: Performed By: #### L 500.2500, L100.0100, L501.4021 #### [facility] [place] [address] [place], [address] Phosphorus measurementOrdere d By: Gladis Luna on 09-15-2024 Phosphorus Level 3.7 mg/dL 2.5-4.9 [facility] Platelet countOrdered By: Kadeem Luna on 09-15-2024 Platelets (Bld) [#/Vol] 257 10*3/uL 150-450 [facility] Potassium measurementOrdered By: Gladis Luna on 09-15-2024 Potassium [Moles/Vol] 3.9 mmol/L 3.5-5.1 [facility] RBC Auto (Bld) [#/Vol]Ordere d By: Gladis Luna on 09-15-2024 RBC (Bld) [#/Vol] 4.78 10*6/uL 4.2-5.4 [facility] Serum anion gap measurementO rdered By: Gladis Luna on 09-15-2024 Anion gap [Moles/Vol] 8 mmol/L 5-15 [facility] Serum globulin measurementOr dered By: Gladis Luna on 09-15-2024 Globulin (S) [Mass/Vol] 3.8 g/dL 2.2-4.[address] [facility] Serum or plasma alanine tang otransferase (ALT) measurementOrdered By: Gladis Luna on 09-15-2024 ALT [Catalytic activity/Vol] 10 U/L Low 13-56 [facility] Serum or plasma albumin yovani urement (mass/volume)Ordered By: Gladis Luna on 09-15-2024 Albumin [Mass/Vol] 3.1 g/dL Low 3.2-5.0 [facility] Serum or plasma alkaline tello sphatase measurementOrdered By: Gladis Luna on 09-15-2024 ALP [Catalytic activity/Vol] 90 U/L 45-117 [facility] Serum or plasma calcium yovani urement (mass/volume)Ordered By: Gladis Luna on 09-15-2024 Calcium [Mass/Vol] 8.6 mg/dL 8.5-10.1 [facility] Serum or plasma creatinine m easurement (mass/volume)Ordered By: Gladis Luna on 09-15-2024 Creatinine [Mass/Vol] 1.30 mg/dL High 0.55-1.02 [facility] Comment on above: The validity of the calculated GFR & GFRAA in patients over 70 years has not been determined. Clinical correlation is essential. Serum or plasma thyroid stim ulating hormone (TSH) measurement (units/volume)Ordered By: Gladis Luna on 09-15-2024 TSH Qn 0.122 uIU/mL Low 0.358-3.740 [facility] Serum or plasma urea nitroge n measurement (mass/volume)Ordered By: Gladis Luna on 09-15-2024 Urea nitrogen [Mass/Vol] 27 mg/dL High 7-18 [facility] Sodium levelOrdered By: Tabitha Luna on 09-15-2024 Sodium [Moles/Vol] 139 mmol/L 136-145 [facility] TSH QnOrdered By: Gladis Collins on 09-15-2024 Thyroid Stimulating Hormone (TSH) 0.122 uIU/mL Low 0.358-3.740 [facility] Thyroid Stim Hormone (TSH)on 09-15-2024 TSH 0.122 uIU/mL Low 0.358-3.740 [facility] Comment on above: Performed By: #### L 500.2500, L100.0100, L501.4021 #### [facility] [address] [place] [address], [id number] Total proteinOrdered By: Renae Luna on 09-15-2024 Protein [Mass/Vol] 6.9 g/dL 6.4-8.2 [facility] White blood cell (WBC) count Ordered By: Gladis Luna on 09-15-2024 WBC (Bld) [#/Vol] 6.4 10*3/uL 4.4-11.0 [facility] BNP (brain natriuretic pepti de measurement)Ordered By: Melquiades Macdonald on 09-14-2024 Natriuretic peptide B (Bld) [Mass/Vol] 123.7 pg/mL High 0-100 [facility] BNP,B-Type NATRIURETIC PEPTI Aida 09-14-2024 Natriuretic peptide B (Bld) [Mass/Vol] 123.7 pg/mL High 0-100 [facility] Comment on above: Performed By: #### L 500.2500, L100.0100, L501.4021 #### [facility] [address] [place], [address] Basic Metabolic Profile (BMP )on 09-14-2024 BUN/CRE 17.7 RATIO Normal 10-20 [facility] Comment on above: Order Comment: 1Y Performed By: #### L 500.2500, L100.0100, L501.4021 #### [facility] [address] [place], [address] CA,Total 9.0 mg/dL Normal 8.5-10.1 [facility] Comment on above: Order Comment: 1Y Performed By: #### L 500.2500, L100.0100, L501.4021 #### [facility] [address] [place] [place], [address] Chloride [Moles/Vol] 99 mmol/L Normal 98-107 [facility] Comment on above: Order Comment: 1Y Performed By: #### L 500.2500, L100.0100, L501.4021 #### [facility] [address] [place] [place], [address] CO2 [Moles/Vol] 32.0 mmol/L Normal 21.0-32.0 [facility] Comment on above: Order Comment: 1Y Performed By: #### L 500.2500, L100.0100, L501.4021 #### [facility] [address] [place], [address] Creatinine [Mass/Vol] 1.47 mg/dL High 0.55-1.02 [facility] Comment on above: Order Comment: 1Y Result Comment: The validity of the calculated GFR GFRAA in patients over 70 years has not been determined. Clinical correlation is essential. Performed By: #### L 500.2500, L100.0100, L501.4021 #### [facility] [address] [place], [address] ECRCL 35.50 ml/min Normal [facility] Comment on above: Order Comment: 1Y Performed By: #### L 500.2500, L100.0100, L501.4021 #### [facility] [address] [place], [address] EST GFR - AA 45 mL/min Low >60 [facility] Comment on above: Order Comment: 1Y Result Comment: Afri can Albanian GFR Calc Performed By: #### L 500.2500, L100.0100, L501.4021 #### [facility] [address] [place], [address] GAP 9 Normal 5-15 [facility] Comment on above: Order Comment: 1Y Performed By: #### L 500.2500, L100.0100, L501.4021 #### [facility] [address] [place], [address] GFR/1.73 sq M.predicted among non-blacks MDRD (S/P/Bld) [Vol rate/Area] 37 mL/min/{1.73_m2} Low >60 [facility] Comment on above: Order Comment: 1Y Result Comment: Non- GFR Calc Performed By: #### L 500.2500, L100.0100, L501.4021 #### [facility] [address] [place], [address] Glucose [Mass/Vol] 109 mg/dL High 74-106 [facility] Comment on above: Order Comment: 1Y Result Comment: Fast ing Glucose result from 100 to 125 mg/dL suggests IMPAIRED HOMEOSTASIS per A.D.A. criteria. Performed By: #### L 500.2500, L100.0100, L501.4021 #### [facility] [address] [place], [address] Potassium [Moles/Vol] 4.0 mmol/L Normal 3.5-5.1 [facility] Comment on above: Order Comment: 1Y Performed By: #### L 500.2500, L100.0100, L501.4021 #### [facility] [address] [place], [address] Sodium [Moles/Vol] 140 mmol/L Normal 136-145 [facility] Comment on above: Order Comment: 1Y Performed By: #### L 500.2500, L100.0100, L501.4021 #### [facility] [address] [place], [address] Urea nitrogen [Mass/Vol] 26 mg/dL High 7-18 [facility] Comment on above: Order Comment: 1Y Performed By: #### L 500.2500, L100.0100, L501.4021 #### [facility] [address] [place], [address] Bedside Glucoseon 09-14-2024 FINGERSTICK GLU 256 mg/dL High 74-106 [facility] Comment on above: Result Comment: SHELDON MENDOZA OF PATIENT CARE PER NURSING PROTOCOL Performed By: #### L 500.2500, L100.0100, L501.4021 #### [facility] [address] [place], [address] CBC W/Diff, Automatedon 08-31 Absolute Lymph 1.58 X10 3/uL Normal 0.83-4.51 [facility] Comment on above: Performed By: #### L 500.2500, L100.0100, L501.4021 #### [facility] [address] [place], [address] Absolute Neut 9.0 X10 3/uL High 2.0-7.7 [facility] Comment on above: Performed By: #### L 500.2500, L100.0100, L501.4021 #### [facility] [address] [place], [address] Basophils/100 WBC (Bld) 0.2 % Normal 0-1 [facility] Comment on above: Performed By: #### L 500.2500, L100.0100, L501.4021 #### [facility] [address] [place], [address] Eosinophils/100 WBC (Bld) 0.1 % Normal 0-5 [facility] Comment on above: Performed By: #### L 500.2500, L100.0100, L501.4021 #### [facility] [address] [place], [address] Erythrocyte distribution width (RBC) [Ratio] 15.8 % High 11.6-14.6 [facility] Comment on above: Performed By: #### L 500.2500, L100.0100, L501.4021 #### [facility] [address] [place], [address] Hematocrit (Bld) [Volume fraction] 44.4 % Normal 37-47 [facility] Comment on above: Performed By: #### L 500.2500, L100.0100, L501.4021 #### [facility] [address] [place], [address] Hemoglobin (Bld) [Mass/Vol] 13.6 g/dL Normal 12.0-15.0 [facility] Comment on above: Performed By: #### L 500.2500, L100.0100, L501.4021 #### [facility] [address] [place], [address] IG% 0.300 Normal 0.0-0.9 [facility] Comment on above: Result Comment: IG% - Immature Granulocytes (promyelocytes, myelocytes and metamyelocytes) > 1% indicates that a LEFT SHIFT is Present. Performed By: #### L 500.2500, L100.0100, L501.4021 #### [facility] [address] [place], [address] Lymphocytes/100 WBC (Bld) 14.2 % Low 19-41 [facility] Comment on above: Performed By: #### L 500.2500, L100.0100, L501.4021 #### [facility] [address] [place], [address] MCH (RBC) [Entitic mass] 27.4 pg Normal 27.0-32.0 [facility] Comment on above: Performed By: #### L 500.2500, L100.0100, L501.4021 #### [facility] [address] [place], [address] MCHC (RBC) [Mass/Vol] 30.6 g/dL Low 32-36 [facility] Comment on above: Performed By: #### L 500.2500, L100.0100, L501.4021 #### [facility] [address] [place], [address] MCV (RBC) [Entitic vol] 89.3 fL Normal 81-99 [facility] Comment on above: Performed By: #### L 500.2500, L100.0100, L501.4021 #### [facility] [address] [place], [address] Monocytes/100 WBC (Bld) 4.4 % Normal 0-10 [facility] Comment on above: Performed By: #### L 500.2500, L100.0100, L501.4021 #### [facility] [address] [place], [address] Neutrophils/100 WBC (Bld) 80.8 % High 47-70 [facility] Comment on above: Performed By: #### L 500.2500, L100.0100, L501.4021 #### [facility] [address] [place], [address] Nucleated RBC (Bld) [#/Vol] 0 10*3/uL Normal 0-5 [facility] Comment on above: Performed By: #### L 500.2500, L100.0100, L501.4021 #### [facility] [address] [place], [address] Platelet mean volume (Bld) [Entitic vol] 9.6 fL Normal 6.2-12.0 [facility] Comment on above: Performed By: #### L 500.2500, L100.0100, L501.4021 #### [facility] [address] [place], [address] Platelets (Bld) [#/Vol] 286 10*3/uL Normal 150-450 [facility] Comment on above: Performed By: #### L 500.2500, L100.0100, L501.4021 #### [facility] [address] [place], [address] RBC (Bld) [#/Vol] 4.97 10*6/uL Normal 4.2-5.4 [facility] Comment on above: Performed By: #### L 500.2500, L100.0100, L501.4021 #### [facility] [address] [place], [address] RDW SD 50.8 fl High 35.1-43.9 [facility] Comment on above: Performed By: #### L 500.2500, L100.0100, L501.4021 #### [facility] [address] [place], [address] WBC (Bld) [#/Vol] 11.1 10*3/uL High 4.4-11.0 [facility] Comment on above: Performed By: #### L 500.2500, L100.0100, L501.4021 #### [facility] [address] [place], [address] Chest PA and Lateralon 09-14 Chest PA and Lateral [facility] [address] [place] [address] Chest PA and Lateral MR#: [id number] Acct: [id number] Name: CLEMENTINA HOOD Rep #: [id number] : 1955 F 69 From: Connor chinchilla MD PCP: Care Physician,No Primary Status: REG ER Study: Chest PA and Lateral Date of Exam: 09/14/24 Exam# [id number] Ordering Dr: Melquiades Macdonald DO [id number] STUDY: X-RAY CHEST REASON FOR EXAM: Female, 69 years old. Cold-like symptoms. Increasing shortness of breath. TECHNIQUE: AP and lateral views of the chest. COMPARISON: Comparison is made with prior study dated September 12, 2024. FINDINGS: The lungs are clear and expanded. There is no demonstrated pleural abnormality. Normal size heart. Normal mediastinum and rosalind. Normal visualized pulmonary arteries. There is atherosclerotic calcification of the aortic arch with tortuosity. There is demineralization of the osseous structures. Increased kyphosis. Loss of height of the superior endplate of the L1 vertebrae. Normal visualized ribs, clavicles, and shoulders. There is no demonstrated abnormality of the visualized soft tissue structures of the upper abdomen. RAD/Chest PA and Lateral IMPRESSION: No acute abnormality is seen. Electronically Signed: Connor Jang MD at 14:23 EST , CC: Dr. Melquiades Macdonald, DO; No Primary Care Physician [employer]: Signed Normal [facility] Echo Completeon 09-14-2024 Echo Complete [facility] [place] [address] [place] [address] Echo Complete 09/15/24 1058 MR#: [id number] Acct: [id number] Name: CLEMENTINA HOOD Rep #: [id number] : [id number] From: Reema Campuzano MD Attending Dr: Dr. Karthik Rodrigues DO Status: A DM IN Ordering Dr: Gladis Luna DO Date: 09/14/24 Location: [facility] Sex: F C Admitted: 09/14/24 Reason For Study: EDEMA Procedure This was a 2D Doppler, Color Flow transthoracic echocardiogram. Exam performed portable in patient room. Left Ventricle Normal LV size. Mild concentric left ventricular hypertrophy. Hyperdynamic left ventricle. Estimated LVEF 75%. Stage 1 diastolic dysfunction. Right Ventricle Normal right ventricle. Atria There is moderate biatrial dilatation. Mitral Valve Mild (1+) mitral valve insufficiency. Tricuspid Valve Mild tricuspid valve insufficiency. Right ventricular systolic pressure estimated to be 51 mmHg. Aortic Valve Trisinus/trileaflet aortic valve. Pulmonic Valve The pulmonic valve is not well visualized. Great Vessels Normal sized aortic root. Pericardium/Pleural No pericardial effusion. MMode/2D Measurements Calculations LVIDd: 4.4 cm IVSd: 1.2 cm LVOT diam: 1.8 cm LVIDs: 2.2 cm LVPWd: 1.1 cm LVOT area: 2.5 cm2 RVDd: 3.2 cm FS: 50.1 % LA dimension: 4.5 cm asc Aorta Diam: 3.0 cm LAV(MOD-bp): 45.2 ml LAV(MOD-bp) Indexed: 25.5 ml/m2 LAV(MOD-sp2): 52.2 ml LAV(MOD-sp4): 35.8 ml SV(MOD-sp4): 28.4 ml LVAd ap4: 17.6 cm2 LVAd ap2: 20.7 cm2 LVLd ap4: 6.6 cm LVLd ap2: 6.9 cm SI(MOD-sp4): 16.0 ml/m2 EDV(MOD-sp4): 38.8 ml EDV(MOD-sp2): 50.5 ml EDV(sp4-el): 39.8 ml EDV(sp2-el): 52.2 ml LVAs ap4: 8.2 cm2 LVAs ap2: 9.0 cm2 LVLs ap4: 5.6 cm LVLs ap2: 5.7 cm ESV(MOD-sp4): 10.4 ml ESV(MOD-sp2): 12.1 ml ESV(sp4-el): 10.3 ml ESV(sp2-el): 12.1 ml EF(MOD-sp4): 73.2 % EF(MOD-sp2): 76.0 % EF(sp4-el): 74.1 % SV(MOD-sp2): 38.4 ml SV(sp4-el): 29.5 ml Ao sinus diam: 2.8 cm SI(MOD-sp2): 21.6 ml/m2 Ao ST Junction: 2.3 cm LA dimension(2D): 3.9 cm LA A4 area: 15.1 cm2 TAPSE: 1.9 cm RA A4 area: 12.9 cm2 Time Measurements MV dec time: 0.28 sec Doppler Measurements Calculations MV E max leon: 108.1 cm/sec Lat Peak E' Leon: 8.1 cm/sec Med Peak E' Leon: 7.7 cm/sec MV A max leon: 117.3 cm/sec E/E' lat: 13.4 E/E' med: 14.0 MV E/A: 0.92 MV dec slope: 386.2 cm/sec2 Ao V2 max: 185.2 cm/sec LV V1 max: 186.5 cm/sec Ao max P.7 mmHg LV V1 max P.9 mmHg Ao V2 mean: 122.5 cm/sec LV V1 mean P.6 mmHg Ao mean P.8 mmHg LV V1 mean: 132.4 cm/sec Ao V2 VTI: 39.9 cm LV V1 VTI: 39.7 cm AV (velocity ratio): 1.00 MEREDITH(I,D): 2.4 cm2 MEREDITH(V,D): 2.5 cm2 SV(LVOT): 97.3 ml PA V2 max: 118.0 cm/sec TR max leon: 301.9 cm/sec TR max P.5 mmHg ECHO/Echo Complete Interpretation Summary Hyperdynamic left ventricle. Estimated LVEF 75%. Mild concentric left ventricular hypertrophy. Stage 1 diastolic dysfunction. There is moderate biatrial dilatation. Mild (1+) mitral valve insufficiency. Mild tricuspid valve insufficiency. Right ventricular systolic pressure estimated to be 51 mmHg. Ordering Physician: Gladis Luna Referring Physician: Melquiades Macdonald Performed By: Tamara Houser RDCS 09/15/24 1350 Date Reema Campuzano MD CC: Dr. Gladis Luna DO; Dr. Karthik Rodrigues DO; Dr. Melquiades Macdonald, DO; No Primary Care Physician Date Dictated: 09/15/24 1058 Date Transcribed: 09/15/24 1350 Electric Distribution Checker: Signed Normal [facility] Emergency Department Summary on 09-14-2024 Emergency Department Summary [facility] Medical Records Department [address] [place] [address] Emergency Department Summary 09/14/24 MR#: [id number] Acct: [id number] Name: CLEMENTINA HOOD Rep #: [id number] : 1955 69 From: Melquiades Macdonald DO PCP: Care Physician,No Primary Status:REG ER Location: ED HPI History of Present Illness Chief Complaint: Shortness of Breath Narrative Narrative: Patient is a 69-year-old female with past medical history chronic kidney disease, COPD, hypertension who presents to the emerged part with a chief complaint of shortness of breath that has been worse cezar since her last visit here. States that she recently came from [place] she is working on moving appear with to be with her sister. She states that she had a left at the last visit because she thought nothing was wrong. States that she was put on a water pill and steroids and feels that things are not helping and they are worsening therefore she came here further evaluation management. Patient states that steroids have not helped her. Patient states that her lower extremity swelling is the same and has not improved despite taking the medication as she is prescribed. [facility] Medical History COPD (chronic obstructive pulmonary disease) Kidney disease Home Medications ???Medication ???Instructions ???Recorded ???Last Taken ???Type albuterol sulfate 2.5 mg/3 mL 2.5 mg (3 mL) inhalation Q4H PRN 09/12/24 Unknown Rx (0.083 %) solution for nebulization #25 vials azithromycin 250 mg tablet 250 mg PO DAILY #4 TABLETS 09/12/24 Unknown Rx furosemide 40 mg tablet (Lasix) 40 mg PO DAILY #7 tabs 09/12/24 Unknown Rx fluticasone fur. 100 mcg-umeclid 1 inh inhalation DAILY 09/14/24 Unknown History 62.5 mcg-vilant 25 mcg inhalat.powder (Trelegy Ellipta) gabapentin 400 mg capsule 400 mg PO Q6H 09/14/24 Unknown History lisinopril 20 mg tablet 20 mg PO DAILY 09/14/24 Unknown History lorazepam 0.5 mg tablet 0.5 mg PO Q8H PRN PRN anxiety 09/14/24 Unknown History metformin 500 mg tablet 500 mg PO DAILY 09/14/24 Unknown History prednisone 20 mg tablet 60 mg PO Q8 09/14/24 Unknown History quetiapine 50 mg tablet 50 mg PO QHS 09/14/24 Unknown History ropinirole 2 mg tablet 2 mg PO QHS 09/14/24 Unknown History tramadol 50 mg tablet 50 mg PO Q8H PRN PRN pain 09/14/24 Unknown History trazodone 150 mg tablet 150 mg PO QHS 09/14/24 Unknown History Allergy/AdvReac Type Severity Reaction Status Date / Time No Known Allergies Allergy Verified 09/14/24 13:31 Social History Smoking Status: Current every day smoker tobacco type: cigarettes ROS ROS ED ROS Narrative Constitutional: Denies any fevers, chills, headaches, lightness, dizziness Eyes: Denies change in vision double vision blurry vision Cardiovascular: Complains of chest pressure denies any palpitations Respiratory: Complains of shortness of breath and coughing as noted above denies any wheezing Abdomen: Denies abdominal pain nausea vomit diarrhea : Denies any urinary symptoms Neurological: Denies any numbness, wheeze, tingling Musculoskeletal: Denies back pain Skin: Denies any rashes or lesions EXAM Physical Exam Narrative Exam Narrative: General: Patient lying in bed rest comfortably did not appear to be in acute distress Head: Atraumatic, normocephalic Eyes: PERRL bilateral, EOMI bladder, no conjunctival injection noted Neck: Soft, supple, trachea midline Cardiovascular: Regular rate and rhythm no murmurs gallops rubs noted Respiratory: Clear to auscultation bilaterally no rales rhonchi or wheezes noted patient does have diminished breath sounds bilaterally at the bases Abdomen: Soft, nondistended, nontender to palpation, bowel sounds present x 4 Extremities: Patient has 1+ pitting edema in the bilateral lower extremities, radial pulses +2/4 in the bilateral per extremities, +4/5 strength noted in the bilateral upper and lower extremities Neurological: Patient following commands knew that she was at [facility] the year is 2024 Skin: Warm, dry, intact no rashes or lesions noted Const Vital Signs: 09/14/24 13:31 09/14/24 13:32 09/14/24 13:46 Temperature 97 F L 97 F L Temperature Source Temporal Temporal Pulse Rate 62 62 Respiratory Rate 28 H 28 H Respiratory Effort Normal Non-Labored Respiratory Depth Normal Respiratory Pattern Normal Blood Pressure 149/58 H 149/58 H Blood Pressure Mean 88 88 Pulse Ox 100 97 Oxygen Delivery Method Room Air Room Air Room Air 09/14/24 14:44 09/14/24 15:30 Temperature Temperature Source Pulse Rate 61 Respiratory Rate 16 Respiratory Effort Respiratory Depth Respiratory Pattern Blood Pressure (more content not included)... Normal [facility] H AND P Exam - Hospitaliston 09-14-2024 H&P Exam - Hospitalist [facility] Medical Records Department [address] [place] [address] H P Exam - Hospitalist 09/14/24 1642 MR#: [id number] Acct: [id number] Name: CLEMENTINA HOOD Rep #: [id number] : 1955 69 From: Gladis Luna DO PCP: Care Physician,No Primary Status:ADM IN Location: [facility] HZ094-2 HPI - General General Date of Admission: 09/14/24 Date of Service: 09/14/24 Chief Complaint: Shortness of breath HPI Narrative CLEMENTINA HOOD, is a 69 F who presented to the emergency department [facility] on 09/14/2023 with a chief complaint of shortness of breath. Patient has a history of tobacco abuse and still smokes about half a pack of cigarettes a day. She has known COPD and reported that she recently came back from [place] and is moving in with her sister. She states about a week ago she started having fever and chills, myalgias, upper respiratory symptoms and a nonproductive cough. Slowly, with time, she has become more short of breath which prompted evaluation today. As an outpatient was she was placed on some diuretics and steroids but did not feel like she was improving. She reports that she has been fairly wheezy without any improvement by taking albuterol. Vital signs on presentation showed a temperature of 97, blood pressure was 149/58, heart rate was 62, respiratory rate was initially 28 and sats were initially 100% on room air however in the emergency department she dropped to 86% on room air and was placed on nasal cannula at 2 L with improvement to her sats from 97 to 99%. CBC shows a mild leukocytosis with a white count of 11.1 and a left shift with an 80.8% neutrophilia however the patient has been on steroids orally. BMP shows normal electrolytes with a BUN of 26 and a serum creatinine 1.47 (baseline creatinine based on 1 previous data point from 2 days ago was 1.22.) initial troponin was 10 with a repeat of 10. BNP was 123.7. EKG was sinus rhythm without ST-T wave changes consistent with ischemia and intervals were normal. Chest x-ray shows flattened diaphragms with underpenetration and consistent with COPD. She did have a CTA of the chest on the when she came to the emergency department and was discharged home at which time imaging was negative for PE however she was noted to have pretty significant upper lobe emphysematous changes. In the emergency department she was treated with aerosols and prednisone and request for admission was made. [facility] Medical History Kidney disease Bipolar disorder Anxiety Depression Osteoporosis Smoker Chest pain Hypertension Migraines COPD (chronic obstructive pulmonary disease) Kidney disease Home Medications ???Medication ???Instructions ???Recorded ???Last Taken ???Type albuterol sulfate 2.5 mg/3 mL 2.5 mg (3 mL) inhalation Q4H PRN 09/12/24 Unknown Rx (0.083 %) solution for nebulization #25 vials azithromycin 250 mg tablet 250 mg PO DAILY #4 TABLETS 09/12/24 Unknown Rx furosemide 40 mg tablet (Lasix) 40 mg PO DAILY #7 tabs 09/12/24 Unknown Rx fluticasone fur. 100 mcg-umeclid 1 inh inhalation DAILY 09/14/24 Unknown History 62.5 mcg-vilant 25 mcg inhalat.powder (Trelegy Ellipta) gabapentin 400 mg capsule 400 mg PO Q6H 09/14/24 Unknown History lisinopril 20 mg tablet 20 mg PO DAILY 09/14/24 Unknown History lorazepam 0.5 mg tablet 0.5 mg PO Q8H PRN PRN anxiety 09/14/24 Unknown History metformin 500 mg tablet 500 mg PO DAILY 09/14/24 Unknown History prednisone 20 mg tablet 60 mg PO Q8 09/14/24 Unknown History quetiapine 50 mg tablet 50 mg PO QHS 09/14/24 Unknown History ropinirole 2 mg tablet 2 mg PO QHS 09/14/24 Unknown History tramadol 50 mg tablet 50 mg PO Q8H PRN PRN pain 09/14/24 Unknown History trazodone 150 mg tablet 150 mg PO QHS 09/14/24 Unknown History Allergy/AdvReac Type Severity Reaction Status Date / Time No Known Allergies Allergy Verified 09/14/24 13:31 Surgical History History of appendectomy Social History household members: family housing: house Smoking Status: Current every day smoker tobacco type: cigarettes alcohol intake: never substance use type: does not use ROS Constitutional Constitutional: Reports chills, fatigue, fever(s), malaise and weakness; Denies anorexia, change in weight, night sweats or other Eyes Eyes: Denies blurry vision, change in eye color, change in vision, discharge from eye(s), double vision, erythema, eye pain, loss of vision or other ENT HEENT: Denies abnormal hearing, dysphagia, ear pain, epistaxis, headache(s), hearing loss, nasal congestion, nasal discharge, post nasal drip, sinus pressure, sore throat or other Cardiovascular Cardiovascular (more content not included)... Normal [facility] Influenza virus A and B and SARS-CoV-2 (COVID-19) and Respiratory syncytial virus RNAOrdered By: Melquiades Macdonald on 09-14-2024 SARS-CoV-2 (COVID-19) RNA LEYDA+probe Ql (Unsp spec) RSV Abnormal [facility] L501.4020on 09-14-2024 TROPONIN-I HS 10 pg/mL Normal 3.0-54.0 [facility] Comment on above: Result Comment: Plea se Note: New Test Units and Gender Specific Reference Ranges. For more information see Policy Stat Procedure [place] High Sensitivity Troponin (TNIH) and attachments. Performed By: #### M 100.638 #### [facility] Laboratory [address] [place], [place], [id number] L501.5425on 09-14-2024 TROPONIN-I HS 10 pg/mL Normal 3.0-54.0 [facility] Comment on above: Order Comment: 1Y Result Comment: Plea se Note: New Test Units and Gender Specific Reference Ranges. For more information see Policy Stat Procedure [place] High Sensitivity Troponin (TNIH) and attachments. Performed By: #### L 500.2500, L100.0100, L501.4021 #### [facility] Laboratory [address] [place], [address] M100.678on 09-14-2024 M100.678 Pending SARS-CoV-2 (COVID 19) Negative INFLUENZA A Negative INFLUENZA B Negative RSV PCR A Positive A RSV Normal [facility] Comment on above: Performed By: #### M 8200.1000 #### [facility] Laboratory [address] [place], [address] Troponin IOrdered By: Melquiades Macdonald on 09-14-2024 Troponin I 10 pg/mL 3.0-54.0 [facility] Comment on above: Please Note: New Alexandra t Units and Gender Specific Reference Ranges. For more information see Policy Stat Procedure [place] High Sensitivity Troponin (TNIH) and attachments. Troponin I High Sensitivity 10 pg/mL 3.0-54.0 [facility] Comment on above: Please Note: New Alexandra t Units and Gender Specific Reference Ranges. For more information see Policy Stat Procedure [place] High Sensitivity Troponin (TNIH) and attachments. Venous Duplex US - Madan Extre [facility] 09-14-2024 Venous Duplex US - Madan Extrem [facility] Cardiovascular Services [address] [place] [address] Venous Duplex US - Madan Extrem 09/15/24 1113 MR#: [id number] Acct: [id number] Name: CLEMENTINA HOOD Rep #: [id number] : 1955 69 From: Javier Styles MD Attending Dr: Dr. Karthik Rodrigues, Status: A DM IN Ordering Dr: Gladis Luna DO Date: 09/14/24 Location: MS3 Sex: F C Admitted: 09/14/24 Reason For Study: BLE Swelling RIGHT LEFT GSV is normal. GSV is normal. CFV is compressible, spontaneous, phasic, CFV is compressible, spontaneous, phasic, competent and demonstrates normal competent, and demonstrates normal augmentation. augmentation. FV is compressible, spontaneous, phasic, FV is compressible, spontaneous, phasic, competent and demonstrates normal competent and demonstrates normal augmentation. augmentation. POP V is compressible, spontaneous, phasic, POP V is compressible, spontaneous, phasic, competent and demonstrates normal competent and demonstrates normal augmentation. augmentation. T/P Trunk is compressible. T/P Trunk is compressible. PTV is compressible. PTV is compressible. RT PerV is compressible. LT PerV is compressible. Procedure This is a venous duplex using B-mode, color flow and spectral Doppler. Exam performed portable in patient room. The exam was diagnostic. A preliminary report was called and/or faxed to M/S 3 bpm analyst. VL/Venous Duplex US - Madan Extrem Interpretation Summary Deep veins of the lower extremities are bilaterally patent and compressible segmentally. There is no evidence of deep vein thrombosis on either side. Valvular competence appears intact within the proximal deep venous systems bilaterally. The great saphenous veins appear bilaterally patent and compressible segmentally. Ordering Physician: Gladis Luna Referring Physician: N/A Performed By: Hiram Rice, RVT 09/15/242012 Date Javier Styles MD CC: Dr. Gladis Luna, DO; Dr. Karthik Rodrigues DO; Dr. Melquiades Macdonald, DO; No Primary Care Physician Date Dictated: 09/15/24 1113 Date Transcribed: 09/15/242012 Electric Distribution Checker: Signed Normal [facility] 12 Lead EKGon 09-12-2024 12 Lead EKG [facility] Cardiovascular Services [address] [place] [address] 12 Lead EKG 09/12/24 1412 MR#: [id number] Acct: [id number] Name: CLEMENTINA HOOD Rep #: [id number] : 1955 69 From: Valente Swartz MD Attending Dr: Status: DEP ER Ordering Dr: Wilver Gilbert DO Date: 09/12/24 Location: ED Sex: F C Admitted: Test Reason : SOB/CP Blood Pressure : */* mmHG Vent. Rate : 64 BPM Atrial Rate : 64 BPM P-R Int : 132 ms QRS Dur : 64 ms QT Int : 394 ms P-R-T Axes : 92 10 48 degrees QTcB Int : 406 ms Normal sinus rhythm Normal ECG Confirmed by VALENTE SWARTZ MD ([id number]), content editor TIFFANY BRAN ([id number]) on 09/13/2024 9:25:26 AM Referred By: Confirmed By: VALENTE SWARTZ MD 09/13/24924 Date Valente Swartz MD CC: Dr. Wilver Gilbert DO; No Primary Care Physician Signed Normal [facility] Absolute lymphocyte countOrd ered By: Wilver Gilbert on 09-12-2024 Lymphocytes Auto (Unsp spec) [#/Vol] 1.99 10*3/uL 0.83-4.51 [facility] Absolute neutrophil countOrd ered By: Wilver Gilbert on 09-12-2024 Neutrophils (Bld) [#/Vol] 4.0 10*3/uL 2.0-7.7 [facility] Automated lymphocyte count a s percentage of total leukocytesOrdered By: Wilver Gilbert on 09-12-2024 Lymphocytes/100 WBC Auto (Unsp spec) 29.9 % 19-41 [facility] BNP (brain natriuretic pepti de measurement)Ordered By: Wilver Gilbert on 09-12-2024 Natriuretic peptide B (Bld) [Mass/Vol] 342.3 pg/mL High 0-100 [facility] BNP,B-Type NATRIURETIC PEPTI Aida 09-12-2024 Natriuretic peptide B (Bld) [Mass/Vol] 342.3 pg/mL High 0-100 [facility] Comment on above: Performed By: #### M 8200.1000 #### [facility] Laboratory [address] [place], [address] Basic Metabolic Profile (BMP )on 09-12-2024 BUN/CRE 13.1 RATIO Normal 10-20 [facility] Comment on above: Order Comment: 1Y Performed By: #### L 500.2500, L100.0100, L501.4021 #### [facility] Laboratory [address] [place], [address] CA,Total 8.9 mg/dL Normal 8.5-10.1 [facility] Comment on above: Order Comment: 1Y Performed By: #### L 500.2500, L100.0100, L501.4021 #### [facility] Laboratory [address] [place], [address] Chloride [Moles/Vol] 108 mmol/L High 98-107 [facility] Comment on above: Order Comment: 1Y Performed By: #### L 500.2500, L100.0100, L501.4021 #### [facility] Laboratory [address] [place], [address] CO2 [Moles/Vol] 29.0 mmol/L Normal 21.0-32.0 [facility] Comment on above: Order Comment: 1Y Performed By: #### L 500.2500, L100.0100, L501.4021 #### [facility] Laboratory [address] [place], [address] Creatinine [Mass/Vol] 1.22 mg/dL High 0.55-1.02 [facility] Comment on above: Order Comment: 1Y Result Comment: The validity of the calculated GFR GFRAA in patients over 70 years has not been determined. Clinical correlation is essential. Performed By: #### L 500.2500, L100.0100, L501.4021 #### [facility] Laboratory [address] [place], [address] ECRCL 43.14 ml/min Normal [facility] Comment on above: Order Comment: 1Y Performed By: #### L 500.2500, L100.0100, L501.4021 #### [facility] Laboratory [address] [place], [address] EST GFR - AA 56 mL/min Low >60 [facility] Comment on above: Order Comment: 1Y Result Comment: Afri can Albanian GFR Calc Performed By: #### L 500.2500, L100.0100, L501.4021 #### [facility] Laboratory [address] [place], [address] GAP 2 Low 5-15 [facility] Comment on above: Order Comment: 1Y Performed By: #### L 500.2500, L100.0100, L501.4021 #### [facility] Laboratory [address] [place], [address] GFR/1.73 sq M.predicted among non-blacks MDRD (S/P/Bld) [Vol rate/Area] 46 mL/min/{1.73_m2} Low >60 [facility] Comment on above: Order Comment: 1Y Result Comment: Non- GFR Calc Performed By: #### L 500.2500, L100.0100, L501.4021 #### [facility] Laboratory [address] [place], [address] Glucose [Mass/Vol] 92 mg/dL Normal 74-106 [facility] Comment on above: Order Comment: 1Y Performed By: #### L 500.2500, L100.0100, L501.4021 #### [facility] Laboratory [address] [place], [address] Potassium [Moles/Vol] 4.7 mmol/L Normal 3.5-5.1 [facility] Comment on above: Order Comment: 1Y Performed By: #### L 500.2500, L100.0100, L501.4021 #### [facility] Laboratory [address] [place], [address] Sodium [Moles/Vol] 139 mmol/L Normal 136-145 [facility] Comment on above: Order Comment: 1Y Performed By: #### L 500.2500, L100.0100, L501.4021 #### [facility] Laboratory [address] [place], [address] Urea nitrogen [Mass/Vol] 16 mg/dL Normal 7-18 [facility] Comment on above: Order Comment: 1Y Performed By: #### L 500.2500, L100.0100, L501.4021 #### [facility] Laboratory [address] [place], [address] Basophil percentageOrdered B y: Wilver Gilbert on 09-12-2024 Basophils/100 WBC (Bld) 0.8 % 0-1 [facility] Blood urea nitrogen (BUN)/cr eatinine ratioOrdered By: Wilver Gilbert on 09-12-2024 Urea nitrogen/Creatinine [Mass ratio] 13.1 mg/mg 10-20 [facility] CBC W/Diff, Automatedon 08-31 Absolute Lymph 1.99 X10 3/uL Normal 0.83-4.51 [facility] Comment on above: Performed By: #### L 500.2500, L100.0100, L501.4021 #### [facility] Laboratory [address] [place], [address] Absolute Neut 4.0 X10 3/uL Normal 2.0-7.7 [facility] Comment on above: Performed By: #### L 500.2500, L100.0100, L501.4021 #### [facility] Laboratory [address] [place], [address] Basophils/100 WBC (Bld) 0.8 % Normal 0-1 [facility] Comment on above: Performed By: #### L 500.2500, L100.0100, L501.4021 #### [facility] Laboratory [address] [place], [address] Eosinophils/100 WBC (Bld) 2.4 % Normal 0-5 [facility] Comment on above: Performed By: #### L 500.2500, L100.0100, L501.4021 #### [facility] Laboratory [address] [place], [address] Erythrocyte distribution width (RBC) [Ratio] 15.7 % High 11.6-14.6 [facility] Comment on above: Performed By: #### L 500.2500, L100.0100, L501.4021 #### [facility] Laboratory [address] [place], [place], [address] Hematocrit (Bld) [Volume fraction] 41.7 % Normal 37-47 [facility] Comment on above: Performed By: #### L 500.2500, L100.0100, L501.4021 #### [facility] Laboratory [address] [place], [address] Hemoglobin (Bld) [Mass/Vol] 12.7 g/dL Normal 12.0-15.0 [facility] Comment on above: Performed By: #### L 500.2500, L100.0100, L501.4021 #### [facility] [address] [place], [address] IG% 0.300 Normal 0.0-0.9 [facility] Comment on above: Result Comment: IG% - Immature Granulocytes (promyelocytes, myelocytes and metamyelocytes) > 1% indicates that a LEFT SHIFT is Present. Performed By: #### L 500.2500, L100.0100, L501.4021 #### [facility] [address] [place], [address] Lymphocytes/100 WBC (Bld) 29.9 % Normal 19-41 [facility] Comment on above: Performed By: #### L 500.2500, L100.0100, L501.4021 #### [facility] [address] [place], [address] MCH (RBC) [Entitic mass] 27.4 pg Normal 27.0-32.0 [facility] Comment on above: Performed By: #### L 500.2500, L100.0100, L501.4021 #### [facility] [address] [place], [address] MCHC (RBC) [Mass/Vol] 30.5 g/dL Low 32-36 [facility] Comment on above: Performed By: #### L 500.2500, L100.0100, L501.4021 #### [facility] [address] [place], [address] MCV (RBC) [Entitic vol] 90.1 fL Normal 81-[address] [facility] Comment on above: Performed By: #### L 500.2500, L100.0100, L501.4021 #### [facility] [address] [place], [address] Monocytes/100 WBC (Bld) 6.6 % Normal 0-[address] [facility] Comment on above: Performed By: #### L 500.2500, L100.0100, L501.4021 #### [facility] [address] [place], [address] Neutrophils/100 WBC (Bld) 60.0 % Normal 47-70 [facility] Comment on above: Performed By: #### L 500.2500, L100.0100, L501.4021 #### [facility] [address] [place], [address] Nucleated RBC (Bld) [#/Vol] 0 10*3/uL Normal 0-5 [facility] Comment on above: Performed By: #### L 500.2500, L100.0100, L501.4021 #### [facility] [address] [place], [address] Platelet mean volume (Bld) [Entitic vol] 9.7 fL Normal 6.2-12.0 [facility] Comment on above: Performed By: #### L 500.2500, L100.0100, L501.4021 #### [facility] [address] [place], [address] Platelets (Bld) [#/Vol] 255 10*3/uL Normal 150-450 [facility] Comment on above: Performed By: #### L 500.2500, L100.0100, L501.4021 #### [facility] [address] [place], [address] RBC (Bld) [#/Vol] 4.63 10*6/uL Normal 4.2-5.4 [facility] Comment on above: Performed By: #### L 500.2500, L100.0100, L501.4021 #### [facility] [address] [place], [address] RDW SD 51.3 fl High 35.1-43.9 [facility] Comment on above: Performed By: #### L 500.2500, L100.0100, L501.4021 #### [facility] [address] [place], [address] WBC (Bld) [#/Vol] 6.7 10*3/uL Normal 4.4-11.0 [facility] Comment on above: Performed By: #### L 500.2500, L100.0100, L501.4021 #### [facility] Laboratory [address] [place], [address] CTA Chest W/WO Contraston CTA Chest W/WO Contrast [facility] Imaging Services [address] [place] [address] CTA Chest W/WO Contrast MR#: [id number] Acct: [id number] Name: CLEMENTINA HOOD Rep #: [id number] : 1955 F 69 From: Will Morris MD PCP: Care Physician,No Primary Status: REG ER Study: CTA Chest W/WO Contrast Date of Exam: 09/12/24 Exam# [id number] Ordering Dr: Wilver Gilbert DO [id number] EXAM: CT ANGIOGRAPHY CHEST WITHOUT AND WITH INTRAVENOUS CONTRAST CLINICAL INDICATION: sob, elevated dimer TECHNIQUE: Helically acquired angiography images were obtained of the chest without and with intravenous contrast. CTDIvol = ( 13.34 ) mGy, DLP = ( 373.76 ) mGycm This CT exam was performed using one or more of the following dose reduction techniques: automated exposure control, adjustment of the mA and/or kV according to patient size, and/or use of iterative reconstruction technique. MIP reconstructed images were created and reviewed. CONTRAST: IV 100mL [id number] COMPARISON: No relevant prior studies available. FINDINGS: PULMONARY ARTERIES: Unremarkable. No evidence of pulmonary embolism. No PE. No aneurysm or dissection. AORTA: Unremarkable. Normal in caliber. No evidence of dissection. GREAT VESSELS OF AORTIC ARCH: Unremarkable. Normal in caliber. No evidence of dissection. LUNGS AND PLEURAL SPACES: Chronic tiny cystic lung changes at the upper lungs. Dependent atelectasis at the posterior lower lobes. No mass. No pleural effusion or thickening. No pneumothorax. No consolidation. HEART: Multivessel calcific coronary atherosclerosis. Heart size is normal. No pericardial effusion. MEDIASTINUM: Bilateral hilar and mediastinal adenopathy. Esophagus is unremarkable. No hiatal hernia. THYROID: Unremarkable. No thyroid lesions. BONES/JOINTS: Healing fracture of the left fifth rib anterolaterally. No suspicious lytic or blastic abnormality. KIDNEYS AND URETERS: 1 cm nonobstructing calyceal calculus at the upper pole of the right kidney. CT/CTA Chest W/WO Contrast IMPRESSION: 1. Reactive mediastinal/hilar adenopathy. 2. Healing fracture of the left fifth rib anterolaterally. 3. 1 cm nonobstructing calyceal calculus at the upper pole of the right kidney. Electronically Signed: Will Morris MD at 17:55 EST , CC: Dr. Wilver Gilbert DO; No Primary Care Physician [employer] Checker: Signed Normal [facility] Carbon dioxide measurementOr dered By: Wilver Gilbert on 09-12-2024 CO2 [Moles/Vol] 29.0 mmol/L 21.0-32.0 [facility] Chest 1 View (Portable)on Chest 1 View (Portable) [facility] Imaging Services [address] [place] [id number] Chest 1 View (Portable) MR#: [id number] Acct: [id number] Name: CLEMENTINA HOOD Rep #: [id number] : 1955 F 69 From: Will Morris MD PCP: Care Physician,No Primary Status: REG ER Study: Chest 1 View (Portable) Date of Exam: 09/12/24 Exam# [id number] Ordering Dr: Wilver Gilbert DO [id number] EXAM: XR CHEST, 1 VIEW CLINICAL INDICATION: chest pain TECHNIQUE: Frontal view of the chest. COMPARISON: No relevant prior studies available. FINDINGS: LUNGS AND PLEURAL SPACES: Increased lung lucencies suggesting emphysema. No pneumothorax. No effusion. HEART: Unremarkable. Cardiac silhouette not enlarged. MEDIASTINUM: Central airways and mediastinal contour are unremarkable. BONES/JOINTS: Unremarkable. No acute fracture. SOFT TISSUES: Unremarkable. VASCULATURE: Atherosclerotic calcifications of the nonenlarged thoracic aortic arch. Degenerative changes of the spine. RAD/Chest 1 View (Portable) IMPRESSION: No acute disease. Electronically Signed: Will Morris MD at 15:42 EST , CC: Dr. Wilver Gilbert DO; No Primary Care Physician [employer] Checker: Signed Normal [facility] Chloride measurementOrdered By: Wilver Gilbert on 09-12-2024 Chloride [Moles/Vol] 108 mmol/L High 98-107 [facility] D-Dimer Quantitative (DVT/PE )on 09-12-2024 D-DIMER QUANT 1.11 FEU/ug/m Invalid Interpretation Code 0.27-0.49 [facility] Comment on above: Order Comment: CRITI PAULINE VALUE CALLED TO [id number]/13/25 Jeremy Shearer.RESULTS READ BACK BY SAME. Result Comment: D-Di doyle ELEVATED (>0.49): Additional studies and clinical assessments are indicated to conclude diagnosis of: Deep Vein Thrombosis (DVT) or Pulmonary Embolism (PE) Performed By: #### M 8200.1000 #### [facility] Laboratory [address] [facility] [place], [address] D-dimer measurement for deep venous thrombosisOrdered By: Wilver Gilbert on 09-12-2024 D-Dimer Quantitative (PE/DVT) 1.11 FEU/ug/m High 0.27-0.49 [facility] Comment on above: D-Dimer ELEVATED (>0 .49): Additional studies and clinicalassessments are indicated to conclude diagnosis of:Deep Vein Thrombosis (DVT) or Pulmonary Embolism (PE) Emergency Department Summary on 09-12-2024 Emergency Department Summary [facility] Medical Records Department [address] [place] [address] Emergency Department Summary 09/12/24 MR#: [id number] Acct: [id number] Name: CLEMENTINA HOOD Rep #: [id number] : 1955 69 From: Wilver Apodaca PCP: Care Physician,No Primary Status:DEP ER Location: ED HPI History of Present Illness Chief Complaint: Shortness of Breath Informant: patient and family Narrative Narrative: Presents here with sister for evaluation worsening dyspnea wheeze nonproductive cough the past week. States fever chills and sweats myalgias. No sick contacts. History of COPD and tobacco history. Sister here visiting from [place] she came by bus 2 weeks ago. She did not have symptoms then. Been increasing leg swelling and pain bilaterally. No chest pains. No abdominal pain. No urinary symptoms. Per sister states she noticed her turning blue when she sleeps. She does snore at night. No diagnosed sleep apnea. She chronically does not sleep flat on her back. No diagnosed CHF. [facility] Medical History (Updated 09/12/24 @ 18:[address] Wilver Gilbert DO) COPD (chronic obstructive pulmonary disease) Kidney disease Home Medications ???Medication ???Instructions ???Recorded ???Last Taken ???Type albuterol sulfate 2.5 mg/3 mL 2.5 mg (3 mL) inhalation Q4H PRN 09/12/24 Unknown Rx (0.083 %) solution for nebulization #25 vials azithromycin 250 mg tablet 250 mg PO DAILY #4 TABLETS 09/12/24 Unknown Rx furosemide 40 mg tablet (Lasix) 40 mg PO DAILY #7 tabs 09/12/24 Unknown Rx prednisone 20 mg tablet 60 mg (3 x 20 mg) PO DAILY #12 09/12/24 Unknown Rx TABLETS Allergy/AdvReac Type Severity Reaction Status Date / Time No Known Allergies Allergy Verified 09/12/24 14:05 Social History Smoking Status: Current every day smoker tobacco type: cigarettes ROS ROS ED Constitutional Constitutional ED: Reports chills, fever(s) and sweats ENT ENT ED: Denies sore throat Cardiovascular Cardiovascular: Reports leg edema; Denies chest pain, palpitations or racing heartbeat Respiratory/Chest Respiratory/Chest: Reports cough and dyspnea; Denies dyspnea on exertion Gastrointestinal Gastrointestinal: Denies abdominal pain, diarrhea, nausea or vomiting Genitourinary Genitourinary ED: Denies dysuria, hematuria or urinary frequency Musculoskeletal Musculoskeletal: Denies back pain, extremity pain or neck pain Integumentary Denies rash or wounds Neurologic Neurologic: Denies headache(s), paresthesias or weakness EXAM Physical Exam Const Vital Signs: 09/12/24 14:03 09/12/24 14:05 09/12/24 14:05 Temperature 97.6 F L 98 F Temperature Source Temporal Oral Pulse Rate 68 64 Respiratory Rate 20 H 18 Respiratory Effort Respiratory Depth Respiratory Pattern Blood Pressure 194/90 H 144/51 H Blood Pressure Mean 124 82 Pulse Ox 99 97 Oxygen Delivery Method Room Air Room Air Room Air Oxygen Flow Rate (L/min) 09/12/24 14:33 09/12/24 15:05 09/12/24 16:00 Temperature 98 F 97.8 F Temperature Source Oral Oral Pulse Rate 67 67 Respiratory Rate 16 18 Respiratory Effort Short of Breath Respiratory Depth Normal Respiratory Pattern Normal Blood Pressure 144/51 H 145/61 H Blood Pressure Mean 82 89 Pulse Ox 98 93 Oxygen Delivery Method Room Air Room Air Oxygen Flow Rate (L/min) 09/12/24 17:00 09/12/24 18:00 Temperature 97.9 F 98 F Temperature Source Oral Oral Pulse Rate 78 88 Respiratory Rate 18 22 H Respiratory Effort Respiratory Depth Respiratory Pattern Blood Pressure 179/83 H 177/77 H Blood Pressure Mean 115 110 Pulse Ox 96 96 Oxygen Delivery Method Nasal Cannula Room Air Oxygen Flow Rate (L/min) 2 Positive well nourished and well developed General Appearance ED: well developed and NAD HEENT Reports moist mucous membranes normocephalic and atraumatic Eyes General Eye ED: Yes normal appearance of both eyes Neck full ROM Chest Wall Chest: Negative for tenderness Resp normal respiratory effort and normal air movement Effort and Inspection: symmetric chest movement; Negative for respiratory distress Cardio regular rate, regular rhythm and no murmurs Peripheral Pulses: pulses 2+ throughout GI normal to inspection, nondistended, normoactive bowel sounds and non-tender Palpation: Negative for guarding or rebound tenderness present Extremity normal to inspection Extremity Narrative: 2+ lower extremity pitting edema with mild calf tenderness bilaterally. General Extremety ED: Yes edema and tenderness General Extremity: edema Neuro oriented x3 and no sensory deficits noted Sensorium / Orientation: awake and alert Skin no rashes or lesions noted and no wounds MD (more content not included)... Normal [facility] Eosinophil percentageOrdered By: Wilver Gilbert on 09-12-2024 Eosinophils/100 WBC (Bld) 2.4 % 0-5 [facility] Erythrocyte distribution wid th ratioOrdered By: Wilver Gilbert on 09-12-2024 Erythrocyte distribution width (RBC) [Ratio] 15.7 % High 11.6-14.6 [facility] Erythrocyte distribution wid th standard deviationOrdered By: Wilver Gilbert on 09-12-2024 Erythrocyte distribution width (RBC) [Entitic vol] 51.3 fL High 35.1-43.9 [facility] Erythrocyte distribution width (RBC) [Ratio] 51.3 fl High 35.1-43.9 [facility] Estimated glomerular filtrat ion rate (GFR) AmericanOrdered By: Wilver Gilbert on 09-12-2024 Estimated GFR (MDRD) Amer 56 mL/min Low >60 [facility] Comment on above: GFR Calc Estimation of creatinine carmela aranceOrdered By: Wilver Gilbert on 09-12-2024 Estimated Creatinine Clearance Calc 43.14 ml/min [facility] Glomerular filtration rate ( GFR) estimationOrdered By: Wilver Gilbert on 09-12-2024 Estimated GFR (MDRD) Non-Af Amer 46 mL/min Low >60 [facility] Comment on above: Non- GFR Calc GFR/1.73 sq M.predicted among non-blacks MDRD (S/P/Bld) [Vol rate/Area] 46 mL/min/{1.73_m2} Low >60 [facility] Comment on above: Non- GFR Calc Glucose measurementOrdered B y: Wilver Gilbert on 09-12-2024 Glucose [Mass/Vol] 92 mg/dL 74-106 [facility] Hematocrit Auto (Bld) [Volum e fraction]Ordered By: Wilver Gilbert on 09-12-2024 Hematocrit (Bld) [Volume fraction] 41.7 % 37-47 [facility] Hemoglobin measurementOrdere d By: Wilver Gilbert on 09-12-2024 Hemoglobin (Bld) [Mass/Vol] 12.7 g/dL 12.0-15.0 [facility] Immature granulocytes/100 WB C Auto (Bld)Ordered By: Wilver Gilbert on 09-12-2024 Immature granulocytes/100 WBC (Bld) 0.300 % 0.0-0.9 [facility] Comment on above: IG% - Immature Granu locytes (promyelocytes, myelocytes and metamyelocytes) > 1% indicates that a LEFT SHIFT is Present. Influenza virus A and B and SARS-CoV-2 (COVID-19) and Respiratory syncytial virus RNAOrdered By: Wilver Gilbert on 09-12-2024 SARS-CoV-2 (COVID-19) RNA LEYDA+probe Ql (Unsp spec) [facility] L501.4020on 09-12-2024 TROPONIN-I HS 11 pg/mL Normal 3.0-54.0 [facility] Comment on above: Result Comment: Plea se Note: New Test Units and Gender Specific Reference Ranges. For more information see Policy Stat Procedure [place] High Sensitivity Troponin (TNIH) and attachments. Performed By: #### M 100.638 #### [facility] Laboratory [address] [place], [address] L501.5425on 09-12-2024 TROPONIN-I HS 14 pg/mL Normal 3.0-54.0 [facility] Comment on above: Order Comment: 1Y Result Comment: Plea se Note: New Test Units and Gender Specific Reference Ranges. For more information see Policy Stat Procedure [place] High Sensitivity Troponin (TNIH) and attachments. Performed By: #### L 500.2500, L100.0100, L501.4021 #### [facility] Laboratory [address] [place], [address] Lymphocytes Auto (Unsp spec) [#/Vol]Ordered By: Wilver Gilbert on 09-12-2024 Lymphocytes (Bld) [#/Vol] 1.99 10*3/uL 0.83-4.51 [facility] Lymphocytes/100 WBC Auto (Un sp spec)Ordered By: Wilver Gilbert on 09-12-2024 Lymphocytes/100 WBC (Bld) 29.9 % 19-41 [facility] M100.678on 09-12-2024 M100.678 Pending SARS-CoV-2 (COVID 19) Negative INFLUENZA A Negative INFLUENZA B Negative RSV PCR Negative Normal [facility] Comment on above: Performed By: #### M 100.638 #### [facility] Laboratory [address] [place], [address] MCV (mean corpuscular volume ) determinationOrdered By: Wilver Gilbert on 09-12-2024 MCV (RBC) [Entitic vol] 90.1 fL 81-99 [facility] Mean corpuscular hemoglobin (MCH) determinationOrdered By: Wilver Gilbert on 09-12-2024 MCH (RBC) [Entitic mass] 27.4 pg 27.0-32.0 [facility] Mean corpuscular hemoglobin concentration (MCHC) determinationOrdered By: Wilver Gilbert on 09-12-2024 MCHC (RBC) [Mass/Vol] 30.5 g/dL Low 32-36 [facility] Mean platelet volume determi nationOrdered By: Wilver Gilbert on 09-12-2024 Platelet mean volume (Bld) [Entitic vol] 9.7 fL 6.2-12.0 [facility] Monocyte percentageOrdered B y: Wilver Gilbert on 09-12-2024 Monocytes/100 WBC (Bld) 6.6 % 0-10 [facility] Neutrophil percentageOrdered By: Wilver Gilbert on 09-12-2024 Neutrophils/100 WBC (Bld) 60.0 % 47-70 [facility] Nucleated red blood cell per centageOrdered By: Wilver Gilbert on 09-12-2024 Nucleated RBC/100 WBC (Bld) [Ratio] 0 % 0-5 [facility] Platelet countOrdered By: Bob Gilbert on 09-12-2024 Platelets (Bld) [#/Vol] 255 10*3/uL 150-450 [facility] Potassium measurementOrdered By: Wilver Gilbert on 09-12-2024 Potassium [Moles/Vol] 4.7 mmol/L 3.5-5.1 [facility] RBC Auto (Bld) [#/Vol]Ordere d By: Wilver Gilbert on 09-12-2024 RBC (Bld) [#/Vol] 4.63 10*6/uL 4.2-5.4 [facility] Serum anion gap measurementO rdered By: Wilver Gilbert on 09-12-2024 Anion gap [Moles/Vol] 2 mmol/L Low 5-15 [facility] Serum or plasma calcium yovani urement (mass/volume)Ordered By: Wilver Gilbert on 09-12-2024 Calcium [Mass/Vol] 8.9 mg/dL 8.5-10.1 [facility] Serum or plasma creatinine m easurement (mass/volume)Ordered By: Wilver Gilbert on 09-12-2024 Creatinine [Mass/Vol] 1.22 mg/dL High 0.55-1.02 [facility] Comment on above: The validity of the calculated GFR & GFRAA in patients over 70 years has not been determined. Clinical correlation is essential. Serum or plasma urea nitroge n measurement (mass/volume)Ordered By: Wilver Gilbert on 09-12-2024 Urea nitrogen [Mass/Vol] 16 mg/dL 7-18 [facility] Sodium levelOrdered By: Wilver Gilbert on 09-12-2024 Sodium [Moles/Vol] 139 mmol/L 136-145 [facility] Troponin IOrdered By: Wilver martin on 09-12-2024 Troponin I 11 pg/mL 3.0-54.0 [facility] Comment on above: Please Note: New Alexandra t Units and Gender Specific Reference Ranges. For more information see Policy Stat Procedure [place] High Sensitivity Troponin (TNIH) and attachments. Troponin I High Sensitivity 11 pg/mL 3.0-54.0 [facility] Comment on above: Please Note: New Alexandra t Units and Gender Specific Reference Ranges. For more information see Policy Stat Procedure [place] High Sensitivity Troponin (TNIH) and attachments. Venous Duplex US - [facility] 09-12-2024 Venous Duplex US - Madan Extrem [facility] Cardiovascular Services [address] [place] [address] Venous Duplex US - Madan Extrem 09/12/24 1451 MR#: [id number] Acct: [id number] Name: CLEMENTINA HOOD Rep #: [id number] : 1955 69 From: Javier Styles MD Attending Dr: Status: DEP ER Ordering Dr: Wilver Gilbert DO Date: 09/12/24 Location: ED Sex: F C Admitted: Reason For Study: BLE Swelling RIGHT LEFT GSV is normal. GSV is normal. CFV is compressible, spontaneous, phasic, CFV is compressible, spontaneous, phasic, competent and demonstrates normal competent, and demonstrates normal augmentation. augmentation. FV is compressible, spontaneous, phasic, FV is compressible, spontaneous, phasic, competent and demonstrates normal competent and demonstrates normal augmentation. augmentation. POP V is compressible, spontaneous, phasic, POP V is compressible, spontaneous, phasic, competent and demonstrates normal competent and demonstrates normal augmentation. augmentation. T/P Trunk is compressible. T/P Trunk is compressible. PTV is compressible. PTV is compressible. RT PerV is compressible. LT PerV is compressible. Procedure This is a venous duplex using B-mode, color flow and spectral Doppler. Exam performed portable in ED. The exam was diagnostic. A preliminary report was called and/or faxed to [facility] ED ÁNGEL Gottlieb. VL/Venous Duplex US - Madan Extrem Interpretation Summary Deep veins of the lower extremities are bilaterally patent and compressible segmentally. There is no evidence of deep vein thrombosis on either side. Valvular competence appears intact within the proximal deep venous systems bilaterally. The great saphenous veins appear bilaterally patent and compressible segmentally. Ordering Physician: Wilver Gilbert Referring Physician: N/A Performed By: Hiram Rice, JASONT 09/12/24 2341 Date Javier Styles MD CC: Dr. Wilver Gilbert DO; No Primary Care Physician Date Dictated: 09/12/24 1451 Date Transcribed: 09/12/24 234 [employer] Checker: Signed Normal [facility] White blood cell (WBC) count Ordered By: Wilver Gilbert on 09-12-2024 WBC (Bld) [#/Vol] 6.7 10*3/uL 4.4-11.0 [facility] Vital Signs Date Time Vital Sign Value Performing Clinician Blake alvarado 11-12-2024 14:00-0400 Body temperature 97.9 [degF] Dr. Wilver Apodaca Work Phone: [facility] 11-12-2024 14:00-0400 Diastolic blood pressure 89 mm[Hg] Dr. Wilver Apodaca Work Phone: [phone] [place] [address] 11-12-2024 14:00-0400 Systolic blood pressure 137 mm[Hg] Dr. Wilver Apodaca Work Phone: [phone] [place] [address] 11-12-2024 13:42-0400 Heart rate 75 /min Dr. Wilver Apodaca Work Phone: [phone] [place] [address] 11-12-2024 13:42-0400 Inhaled oxygen flow rate 3 L/min Dr. Wilver Apodaca Work Phone: [phone] [place] [address] 11-12-2024 13:42-0400 Respiratory rate 16 /min Dr. Wilver Apodaca Work Phone: [phone] [place] [address] 11-12-2024 13:42-0400 SaO2% (BldA) [Mass fraction] 94 % Dr. Wilver Apodaca Work Phone: [phone] [place] [address] 11-11-2024 13:50-0400 Body height 167.[address] Wilver Apodaca Work Phone: [phone] [address] [place] [address] 11-11-2024 13:50-0400 Body weight 69.[address] Wilver Apodaca Work Phone: 7(915)741-222532 [place] [address] 11-11-2024 00:00-0400 Body mass index (BMI) [Ratio] 24.8 kg/m2 Dr. Wilver Apodaca Work Phone: 0(270)776-280132 [place] [address] 11-10-2024 20:00-0400 Body temperature 98.3 [degF] Dr. Wilver Apodaca Work Phone: 0(440)704-625532 [place] [address] 11-10-2024 20:00-0400 Diastolic blood pressure 81 mm[Hg] Dr. Wilver Apodaca Work Phone: 5(611)953-838378 [place] [address] 11-10-2024 20:00-0400 Heart rate 70 /min Dr. Wilver Apodaca Work Phone: 7(656)630-542132 [place] [address] 11-10-2024 20:00-0400 Inhaled oxygen flow rate 3 L/min Dr. Wilver Apodaca Work Phone: 2(211)960-120932 [place] [address] 11-10-2024 20:00-0400 Respiratory rate 16 /min Dr. Wilver Apodaca Work Phone: 8(438)532-990778 [place] [address] 11-10-2024 20:00-0400 SaO2% (BldA) [Mass fraction] 94 % Dr. Wilver Apodaca Work Phone: 1(490)860-355278 [place] [address] 11-10-2024 20:00-0400 Systolic blood pressure 145 mm[Hg] Dr. Wilver Apodaca Work Phone: 8(182)806-846578 [place] [address] 11-10-2024 15:03-0400 Body height 167.[address] Wilver Apodaca Work Phone: 5(766)712-953932 [place] [address] 11-10-2024 15:03-0400 Body mass index (BMI) [Ratio] 25.9 kg/m2 Dr. Wilver Apodaca Work Phone: 7(642)244-711778 [place] [address] 11-10-2024 15:03-0400 Body weight 73.[address] Wilver Apodaca Work Phone: 0(092)099-801778 [place] [address] 10-14-2024 14:00-0500 Diastolic blood pressure 61 mm[Hg] Dr. Wilver Apodaca Work Phone: 3(555)590-439778 [place] [address] 10-14-2024 14:00-0500 Heart rate 72 /min Dr. Wilver Apodaca Work Phone: 0(282)977-828478 [place] [address] 10-14-2024 14:00-0500 Inhaled oxygen flow rate 3 L/min Dr. Wilver Apodaca Work Phone: 1(818)447-016478 [place] [address] 10-14-2024 14:00-0500 Respiratory rate 17 /min Dr. Wilver Apodaca Work Phone: 3(237)908-282078 [place] [address] 10-14-2024 14:00-0500 SaO2% (BldA) [Mass fraction] 97 % Dr. Wilver Apodaca Work Phone: 9(567)958-942378 [place] [address] 10-14-2024 14:00-0500 Systolic blood pressure 142 mm[Hg] Dr. Wilver Apodaca Work Phone: 9(096)688-192578 [place] [address] 10-14-2024 01:55-0500 Body temperature 98.7 [degF] Dr. Wilver Apodaca Work Phone: 5(451)011-932178 [place] [address] 10-13-2024 22:52-0500 Body mass index (BMI) [Ratio] 27.7 kg/m2 Dr. Wilver Apodaca Work Phone: 8(670)362-562178 [place] [address] 10-13-2024 22:52-0500 Body weight 77.[address] Wilver Apodaca Work Phone: 1(992)682-736278 [place] [address] 09-16-2024 15:51-0500 Body temperature 98.5 [degF] Dr. Wilver Apodaca Work Phone: 9(575)223-756532 [place] [address] 09-16-2024 15:51-0500 Diastolic blood pressure 89 mm[Hg] Dr. Wilver Apodaca Work Phone: 8(505)820-403532 [place] [address] 09-16-2024 15:51-0500 Heart rate 98 /min Dr. Wilver Apodaca Work Phone: 7(852)941-065032 [place] [address] 09-16-2024 15:51-0500 Inhaled oxygen flow rate 2 L/min Dr. Wilver Apodaca Work Phone: 9(612)372-012578 [place] [address] 09-16-2024 15:51-0500 Respiratory rate 20 /min Dr. Wilver Apodaca Work Phone: 0(509)995-767478 [place] [address] 09-16-2024 15:51-0500 SaO2% (BldA) [Mass fraction] 99 % Dr. Wilver Apodaca Work Phone: 1(899)426-959678 [place] [address] 09-16-2024 15:51-0500 Systolic blood pressure 144 mm[Hg] Dr. Wilver Apodaca Work Phone: 1(685)357-274932 [place] [address] 09-16-2024 06:00-0500 Body mass index (BMI) [Ratio] 24.3 kg/m2 Dr. Wilver Apodaca Work Phone: [facility] 09-16-2024 06:00-0500 Body weight 68.[address] Wilver Apodaca Work Phone: 5(451)259-258478 [place] [address] 09-12-2024 18:00-0500 Body temperature 98 [degF] Dr. Wilver Apodaca Work Phone: [facility] 09-12-2024 18:00-0500 Diastolic blood pressure 77 mm[Hg] Dr. Wilver Apodaca Work Phone: [facility] 09-12-2024 18:00-0500 Heart rate 88 /min Dr. Wilver Apodaca Work Phone: [facility] 09-12-2024 18:00-0500 Respiratory rate 22 /min Dr. Wilver Gilbert DO Work Phone: [facility] 09-12-2024 18:00-0500 SaO2% (BldA) [Mass fraction] 96 % Dr. Wilver Apodaca Work Phone: [facility] 09-12-2024 18:00-0500 Systolic blood pressure 177 mm[Hg] Dr. Wilver Apodaca Work Phone: [facility] 09-12-2024 17:00-0500 Inhaled oxygen flow rate 2 L/min Dr. Wilver Apodaca Work Phone: [facility] 09-12-2024 14:03-0500 Body mass index (BMI) [Ratio] 25.8 kg/m2 Dr. Wilver Apodaca Work Phone: [facility] 09-12-2024 14:03-0500 Body weight 72.[address] Wilver Apodaca Work Phone: [facility] Encounters Encounter Date Encounter Type Care Provider Facility Start: 04-20-2025 ambulatory [facility] Facility:[facility] Start: 03-10-2025 End: 03-10-[address] Daniele Salazar MD Work Phone: -[facility]atory [facility]rd Flr Start: 03-10-2025 End: 03-10-[address] Daniele Salazar MD -Laboratory [facility]rd Fl[facility] Start: 03-10-2025 End: 03-10-2025 ambulatory [facility] Facility:[facility] Start: 01-02-2025 End: 01-02-[address] Wilver Apodaca Work Phone: [facility] Work Phone: Start: 01-02-2025 End: 01-02-[address] Daniele Salazar MD -Laboratory Work Phone: Start: 01-02-2025 End: 01-02-2025 ambulatory [facility] Start: 12-21-2024 End: 12-21-[address] Wilver Apodaca Work Phone: [facility] Work Phone: Start: 12-21-2024 End: 12-21-[address] Daniele Salazar MD -Laboratory Work Phone: Start: 12-21-2024 End: 12-21-2024 [facility]ulatory [facility] Start: 11-14-2024 End: 11-16-2024 ambulatory No Primary Care Physician Facility:[facility] Start: 11-12-2024 Non-patient / Non-visit Dr. Chana christian MD -[facility] Work Phone: Start: 11-11-2024 Non-patient / Non-visit Dr. Chana christian MD -[facility] Work Phone: Start: 11-10-2024 Non-patient / Non-visit Dr. Gaurang Donahue MD -[facility] Work Phone: Start: 11-10-2024 End: 11-12-2024 ambulatory No Primary Care Physician Facility:[facility] Start: 11-10-2024 End: 11-12-2024 Evaluation and management of inpatient Dr. Gaurang Donahue MD -[facility] Work Phone: Start: 11-10-2024 End: 11-12-[address] Wilver Apodaca Work Phone: [facility] Work Phone: Start: 10-13-2024 End: 10-14-2024 Emergency department patient visit Dr. Pako Fink MD -Emergency Department Work Phone: Start: 09-16-2024 Non-patient / Non-visit Dr. Karthik De Jesus DO [facility] Work Phone: Start: 09-15-2024 Non-patient / Non-visit Dr[facility] Karth[facility] Work Phone: Start: 09-15-2024 ambulatory Reema Justen Facility:[facility] Start: 09-15-2024 Non-patient / Non-visit Dr. Reema fitch MD -[facility] Start: 09-14-2024 ambulatory No Primary Car e Physician Facility:[facility] Start: 09-14-2024 End: 09-16-2024 Evaluation and management of inpatient Dr. Karthik Rodrigues DO -[facility] Work Phone: Start: 09-12-2024 End: 09-12-2024 Emergency department patient visit Dr. Wilver Apodaca -Emergency Department Work Phone: Procedures Date Procedure Procedure Detail Performing Clinician Start: 03-10-2025 Vitamin D, 25-hydrox y measurement Dr. Daniele Salazar MD Work Phone: Comment on above: Vitamin D StatusDefi ciency: <20 ng/mL (50nmol/L)Insufficiency: 20-30 ng/mL (50-75 nmol/L)Sufficiency: 30-100 ng/mL (75-250 nmol/L)Toxicity: >100 ng/mL (>250 nmol/L) Start: 12-21-2024 Hepatitis C antibody measurement Dr. Wilver Apodaca Work Phone: Comment on above: Reactive: Presumptiv e evidence of antibodies to HCV. Follow CDC recommendations for supplemental testing.Non-Reactive: Antibodies to HCV were not detected; does not exclude the possibility of exposure to HCVReactive Results are presumptive evidence of antibodies to HCV. Follow CDC recommendations for supplemental testing.Order confirmation testing: HCV Quant by PCR testing - HCVPCR #[id number] Non Reactive: < 0.8 Equivocal: >/= 0.8 to < 1.0 Reactive: >/= 1.0The CDC requires that a reactive/equivocal HCV antibody result be sent out for confirmation. HCV Quant by PCR testing. Start: 12-21-2024 Vitamin D, 25-hydrox y measurement Dr. Wilver Gilbert DO Work Phone: Comment on above: Vitamin D StatusDefi ciency: <20 ng/mL (50nmol/L)Insufficiency: 20-30 ng/mL (50-75 nmol/L)Sufficiency: 30-100 ng/mL (75-250 nmol/L)Toxicity: >100 ng/mL (>250 nmol/L) Start: 11-12-[address] Wilver Gilbert DO Work Phone: Start: 11-11-2024 Serum inorganic phos phate measurement Dr. Wilver Gilbert DO Work Phone: Start: 11-10-2024 Plain chest X-ray Dr. Gabrielle Gilbert DO Work Phone: Start: 11-10-2024 Bacterial nucleic acid assay Dr. Wilver Gilbert DO Work Phone: Start: 11-10-2024 Legionella pneumophi la antigen assay Dr. Wilver Gilbert DO Work Phone: Start: 11-10-[address] Wilver Gilbert DO Work Phone: Start: 11-10-2024 SARS-CoV-2, Influenz a & RSV (PCR) Dr. Wilver Gilbert DO Work Phone: Start: 10-13-2024 Plain chest X-ray Dr. Gabrielle Gilbert DO Work Phone: Start: 10-13-[address] Wilver Gilbert DO Work Phone: Start: 10-13-2024 Measurement of renal function Dr. Wilver Gilbert DO Work Phone: Comment on above: GFR Calc Start: 10-13-2024 SARS-CoV-2, Influenz a & RSV (PCR) Dr. Wilver Gilbert DO Work Phone: Start: 09-15-2024 Assay of phosphorus inorganic Dr. Wilver Gilbert DO Work Phone: Start: 09-15-[address] Wilver Apodaca Work Phone: Start: 09-15-2024 Measurement of renal function Dr. Wilver Apodaca Work Phone: Comment on above: GFR Calc Start: 09-14-2024 SARS-CoV-2, Influenz a & RSV (PCR) Dr. Wilver Apodaca Work Phone: Start: 09-14-2024 X-ray of chest, PA a nd lateral views Dr. Wilver Apodaca Work Phone: Start: 09-12-2024 CT angiography of ch est with contrast Dr. Wilver Apodaca Work Phone: Start: 09-12-2024 Plain chest X-ray Dr. Gabrielle Gilbert DO Work Phone: Start: 09-12-2024 D-dimer assay, quantitative Dr. Wilver Apodaca Work Phone: Comment on above: D-Dimer ELEVATED (>0 .49): Additional studies and clinicalassessments are indicated to conclude diagnosis of:Deep Vein Thrombosis (DVT) or Pulmonary Embolism (PE) Start: 09-12-[address] Wilver Apodaca Work Phone: Start: 09-12-2024 Measurement of renal function Dr. Wilver Apodaca Work Phone: Comment on above: GFR Calc Start: 09-12-2024 SARS-CoV-2, Influenz a & RSV (PCR) Dr. Wilver Apodaca Work Phone: Plan of Treatment Date Care Activity Detail Author Start: 11-12-2024 Patient discharge [facility] Start: 11-11-2024 Oxygen therapy [facility] Start: 11-10-2024 Following clinical pathway protocol [facility] Start: 11-10-2024 Assessment of risk of venous thromboembolism [facility] Start: 11-10-2024 Elevation of head of bed [facility] Start: 11-10-2024 Incentive spirometry [facility] Start: 11-10-2024 Inhalation therapy procedure [facility] Start: 11-10-2024 Insertion of catheter into peripheral vein [facility] Start: 11-10-2024 Measuring intake and output [facility] Start: 11-10-2024 Patient education [facility] Start: 11-10-2024 Providing care according to standard [facility] Start: 11-10-2024 Provision of activity privileges [facility] Start: 11-10-2024 Referral to service [facility] Start: 11-10-2024 [facility] Start: 11-10-2024 Following clinical pathway protocol [facility] Start: 11-10-2024 Hospital admission, emergency, from emergency room, medical nature [facility] Start: 11-10-2024 Legionella pneumophila Ag [Presence] in Urine [facility] Start: 11-10-2024 Verification routine [facility] Start: 11-10-2024 Admission procedure [facility] Start: 11-10-2024 [facility] Start: 11-10-2024 Consultation [facility] Start: 11-10-2024 Patient referral to dietitian [facility] Start: 10-14-2024 [facility] Start: 10-13-2024 [facility] Start: 09-16-2024 Patient discharge [facility] Start: 09-15-2024 [facility] Start: 09-15-2024 Following clinical pathway protocol [facility] Start: 09-14-2024 Assessment of risk of venous thromboembolism [facility] Start: 09-14-2024 Care regimes management [facility] Start: 09-14-2024 Catheterization of vein [facility] Start: 09-14-2024 Insertion of catheter into peripheral vein [facility] Start: 09-14-2024 Measuring intake and output [facility] Start: 09-14-2024 Notification of physician [facility] Start: 09-14-2024 Oxygen therapy [facility] Start: 09-14-2024 Providing care according to standard [facility] Start: 09-14-2024 Provision of activity privileges [facility] Start: 09-14-2024 Referral to service [facility] Start: 09-14-2024 Respiratory secretion precautions [facility] Start: 09-14-2024 Tobacco use cessation education [facility] Start: 09-14-2024 End: 09-14-2024 [facility] Start: 09-14-2024 Following clinical pathway protocol [facility] Start: 09-14-2024 Admission procedure [facility] Start: 09-14-2024 Consultation [facility] Start: 09-14-2024 Inhalation therapy procedure [facility] Start: 09-14-2024 Patient referral to dietitian [facility] Start: 09-12-2024 [facility] Start: 09-12-2024 [facility] Start: 09-12-2024 Emergency department visit moderate severity EMERGENCY DEPT VISIT LOW MDM [facility] Patient Education [facility] Work Phone: Patient referral [facility] Work Phone: Payers Date Payer Category Payer Medicare 2024 Medicare [id number] 2024 Self-pay Unknown [id number] 2.16.8 [id number] Unknown [id number] 2.16.8 [id number] Unknown [id number] 2.16.8 [id number] Unknown [id number] 2.16.8 [id number] Unknown [id number] 2.16.8 [id number] Unknown [id number] 2.16.8 [id number] Unknown [id number] 2.16.8 [id number] Unknown [id number] 2.16.8 [id number] Unknown [id number] 2.16.8 [id number] Unknown [id number] 2.16.8 [id number] Unknown [id number] 2.16.8 [id number] Unknown [id number] 2.16.8 [id number] Unknown [id number] 2.16.8 [id number] Unknown [id number] 2.16.8 [id number] Unknown [id number] 2.16.8 [id number] Unknown [id number] 2.16.8 [id number] Unknown [id number] 2.16.8 [id number] Social History Date Type Detail Facility Start: 11-10-2024 End: 11-11-2024 Tobacco smoking status MDIS Smokes tobacco daily (finding) [facility] Start: 11-10-2024 End: 12-26-2024 Sex Female (finding) [facility] Start: 1955 Sex Assigned At Female [facility] Goals Date Patient Goal Desired Activity /State Functional Status Date Assessment Result Facility 11-12-2024 Functional status Ambulates [facility] Work Phone: 09-16-2024 Functional status Ambulates [facility] Work Phone: Mental Status Date Assessment Result Facility 11-12-2024 Cognitive function Voice/Name [facility] Work Phone: 09-16-2024 Cognitive function Voice/Name [facility] Work Phone: Clinical Notes 09-14-2024 to 11-12-2024 Note Date & Type Note Facility 11-12-2024 Discharge summary [facility] 11-12-2024 Discharge summary Note Date/Time November 12, 2024 1:44pm [facility] Medical Records Department [address] [place] [address] Discharge Summary 11/12/24 1214 MR#: [id number] Acct: [id number] Name: CLEMENTINA HOOD Rep #:[id number] : 1955 69 From: Chana Staley MD PCP: Care Physician,No Primary Status :ADM NADEGE Location: [place] [address] Providers Date of Admission: 11/10/24 Date of Discharge: 11/12/24 Primary Care Physician: No Primary Care Phys Reason For Visit: SOB Diagnosis Discharge Diagnosis (1) COPD exacerbation: Status: Inactive Code(s): J44.1 - Chronic obstructive pulmonary disease with (acute) exacerbation Plan #Acute exacerbation of COPD on chronic hypoxic respiratory failure on 3 L home O2 w/ ambulation with concern for concomitant mild community-acquired pneumonia # Chronic stage I diastolic dysfunction # History of mood disorder NOS # CKD stage III b #Anxiety # RLS and peripheral neuropathy #Tobacco use #Hypertension Medications at Discharge Home Medications albuterol sulfate 2.5 mg/3 mL (0.083 %) solution for nebulization 2.5 mg (3 mL) inhalation Q4H PRN #25 vials 09/12/24 fluticasone fur. 100 mcg-umeclid 62.5 mcg-vilant 25 mcg inhalat.powder (Trelegy Ellipta) 1 inh inhalation DAILY 09/14/24 gabapentin 400 mg capsule 400 mg PO Q6H 09/14/24 metformin 500 mg tablet 500 mg PO DAILY 09/14/24 quetiapine 50 mg tablet 50 mg PO QHS 09/14/24 ropinirole 2 mg tablet 2 mg PO QHS 09/14/24 trazodone 150 mg tablet 150 mg PO QHS 09/14/24 albuterol sulfate 90 mcg/actuation aerosol inhaler 2 puff inhalation Q6H PRN shortness of breath or wheezing #6.7 grams 09/16/24 codeine 10 mg-guaifenesin 100 mg/5 mL oral liquid (Guaifenesin AC) 10 ml PO Q6H PRN cough #237 mL 09/16/24 albuterol sulfate 90 mcg/actuation aerosol inhaler (Ventolin HFA) 1 - 2 puff inhalation Q4H PRN PRN Wheezing #1 ea 10/14/24 ipratropium 0.5 mg-albuterol 3 mg (2.5 mg base)/3 mL nebulization soln 3 ml inhalation Q6H PRN shortness of breath #90 mL 10/14/24 amoxicillin 875 mg-potassium clavulanate 125 mg tablet 1 tab PO BID 2 days #5 tabs 11/12/24 azithromycin 500 mg tablet 500 mg PO QHS 1 day #1 TAB 11/12/24 lisinopril 20 mg tablet 20 mg PO DAILY 30 days #30 tabs 11/12/24 lorazepam 0.5 mg tablet 0.5 mg PO Q8H PRN PRN anxiety 3 days #9 tabs 11/12/24 prednisone 20 mg tablet See Taper PO BREAKFAST #32 tabs 11/12/24 Hospital Course Summary of Care Provided Minutes Spent on Discharge: 33 Hospital Course: #Acute exacerbation of COPD on chronic hypoxic respiratory failure on 2 L home O2 w/ ambulation with concern for concomitant mild community-acquired pneumonia # Chronic stage I diastolic dysfunction # History of mood disorder NOS # CKD stage III b #Anxiety # RLS and peripheral neuropathy #Tobacco use #Hypertension 69-year-old female history as above presented [facility] ED 11/10/2024 with worsening shortness of breath and was found to have a COPD exacerbation as well as concern for component of community-acquired pneumonia and she was placed on antibiotics. She has also been placed on steroids and breathing treatments for the COPD exacerbation. Patient improved on nebs and steroids, given she was started on antibiotics and is difficult to tell if this contributed to her improvement she was sent with antibiotics to complete course. Suspect patient COPD exacerbation was combination of smoking and that she was out of her Trelegy at home. Patient moved here couple months ago and does not have any doctors and reports she is out of some of her medications. Case management evaluated patient and set her up an appointment with a PCP. Patient improved during admission and on 11/12/2024 was stable for discharge, patient still has cough but reports breathing improving and she is comfortable going home. Patient reported she does still have most of her medications but lisinopril and lorazepam seem to be too that she ran out of, prescription for lisinopril sent, sent short-term prescription for lorazepam as needed. Advised patient use nebulizer scheduled until she can resume her home inhaler. Patient verbalized understanding and was up and ambulated and did well, did not need oxygen at rest and again felt stable for discharge home. Discharge instructionsas followed: -You will need 1 more dose of azithromycin which you will take this evening and will need to take 1 dose of Augmentin tonight and then twice daily for 2 more days -You will be discharged on a prednisone taper: -60 mg daily x3 days -50mg daily x3 days -40mg daily x3 days -30mg daily x3 days -20mg daily x3 days -10mg daily x3 days -It is advised that you use your nebulizers at home 3 times daily until you are able to renew your home inhalers -Please continue to use your 2 L of oxygen with ambulation -You would benefit from establishing with pulmonology on discharge, contact information below, advised to contact the office to schedule an establish care appointment -You have an appointment to schedule with a new primary care physician 02/14/2025, information below -You indicated that you ran out of refills on your Ativan, as we discussed only several days of this can be sent in as it is a controlled substance, these were sent to your pharmacy along with your antibiotics and steroids -It is strongly advised that he refrain from smoking as this will worsen your breathing over time -Please call your primary care provider's office upon discharge to schedule a hospital follow up within 1 week. -For any concerning signs or symptoms please call 911 or proceed to the nearest emergency department Physical Exam Narrative General: Alert, oriented, no apparent distress HEENT: Atraumatic, normocephalic Eyes: Anicteric, normal conjunctiva, extraocular movements grossly intact Neck: Supple Respiratory: Improved respiratory effort, wheezes resolved Cardiovascular: Regular rate GI: Soft, nontender, nondistended Extremities: No edema Musculoskeletal: Moving all extremities Neuro: No overt focal neurological deficits Skin: No rashes appreciated Psych: Cooperative Medical Records Data Medical Nutrition Assessment Dietitian: Malnutrition Criteria Met Start: 11/11/24 14:33 Freq: Status: Active Protocol: Document 11/11/24 14:34 MELVA (Rec: 11/11/24 14:34 MELVA [id number]) Nutrition Malnutrition Evidence of Yes Malnutrition Exists Malnutrition (severe Acute Illness/Injury ): Evidenced By Suboptimal Energy Intake (Severe),Weight Loss (Severe) Clinical Problem Acute Disease or Injury Related Malnutrition Etiology related to acute illness and inadequate energy intake Signs/Symptoms as evidenced by po intake meeting < 75% of est nutritional needs and 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 Problem Recommendation Dietitian Will liberalize diet to Regular No Added Salt d/t signs Recommendations/ and symptoms of malnutrition Changes Will continue Ensure Plus High Protein w/ medpass for increased nutrition if consumed Weight / BMI Weight Weight: 69.9 kg Body Mass Index (BMI) 24.8 ABG / Lab / Microbiology Data 11/12/24 07:05 11/12/24 07:05 Laboratory: Laboratory Results - last 24 hr 11/12/24 07:05: WBC 6.3, RBC 4.85, Hgb 13.4, Hct 43.7, MCV 90.1, MCH 27.6, MCHC 30.7 L, RDW Std Deviation 49.9 H, RDW Coeff of Magno 14.9 H, Plt Count 228, MPV 10.0, Immature Gran % (Auto) 0.200, Neut % (Auto) 82.4 H, Lymph % (Auto) 13.6 L,Hooker % (Auto) 3.8, Eos % (Auto) 0.0, Baso % (Auto) 0.0, Absolute Neuts (auto) 5.2, Absolute Lymphs (auto) 0.86, Nucleated RBC % 0, Sodium 139, Potassium 5.0, Chloride 101, Carbon Dioxide 26.7, Anion Gap 11, BUN 28 H, Creatinine 1.07, Estim Creat Clear Calc 45.14 L, Est GFR (MDRD) Non-Af 56 L, BUN/Creatinine Ratio 26.2 H, Glucose 130 H, Calcium 9.1 Microbiology: Microbiology 11/10/24 22:50 Mucosa - Nasopharyngeal Respiratory Panel (PCR) - Final 11/10/24 23:10 Nasal Secretion MRSA (PCR) - Final 11/10/24 22:47 Urine, Clean Catch Legionella Antigen - Final 11/10/24 15:45 Mucosa - Nose SARS-CoV-2, Influenza & RSV (PCR) - Final D/C Instructions Discharge Diet: - DC O2, CPAP, BIPAP Needs Home O2 Discharge instructions: Yes Type of respiratory needs?: Oxygen Oxygen frequency: With Ambulation Oxygen liters per minute during Ambulation: 2 DC home with Oxygen: Yes Home O2 MD Review: I have reviewed the oxygen testing, and the patient qualifies for home oxygen equipment and portability. The patient is mobile in the home and the community. Meaningful Use Info Meaningful Use Meaningful Use Diagnoses (Choose all that apply): None applicable Ischemic Stroke Statin Dosing Therapy Reference: STATIN DOSE THERAPY REFERENCE: * Patients > 75 years receive moderate or high dose statin therapy. * Patients 75 years or YOUNGER should receive HIGH intensity statin dose unless contraindicated. You will be required to document reason for non-treatment if statin daily dose does not meet guidelines. HIGH DOSE STATIN THERAPY DAILY Atorvastatin > than or = to 40 mg Rosuvastatin > than or = to 20 mg Amlodipine + Atorvastatin > than or = to 2.5/40 mg Ezetimibe + Simvastatin 10/80 mg Simvastatin 80mg Discharge Plan Admission Admit Date/Time: 11/10/24 18:56 Primary Reason for Your Visit: Shortness of breath Attending Provider: Chana Staley Primary Care Provider: Care Physician,No Primary Consulting Providers: Gaurang Donahue Instructions Patient Instructions: Asthma and COPD, COPD Quit Smoking Additional Instructions / Restrictions: DISCHARGE INSTRUCTIONS PLEASE READ *Please take this with you to your next doctors appointment* -You will need 1 more dose of azithromycin which you will take this evening and will need to take 1 dose of Augmentin tonight and then twice daily for 2 more days -You will be discharged on a prednisone taper: -60 mg daily x3 days -50mg daily x3 days -40mg daily x3 days -30mg daily x3 days -20mg daily x3 days -10mg daily x3 days -It is advised that you use your nebulizers at home 3 times daily until you are able to renew your home inhalers -Please continue to use your 2 L of oxygen with ambulation -You would benefit from establishing with pulmonology on discharge, contact information below, advised to contact the office to schedule an establish care appointment -You have an appointment to schedule with a new primary care physician 02/14/2025, information below -You indicated that you ran out of refills on your Ativan, as we discussed only several days of this can be sent in as it is a controlled substance, these were sent to your pharmacy along with your antibiotics and steroids -It is strongly advised that he refrain from smoking as this will worsen your breathing over time -Please call your primary care provider's office upon discharge to schedule a hospital follow up within 1 week. -For any concerning signs or symptoms please call 911 or proceed to the nearest emergency department Discharge Orders/Prescriptions Prescriptions: New azithromycin 500 mg tablet 500 mg PO QHS 1 Days Qty: 1 0RF amoxicillin-pot clavulanate 875-125 mg tablet 1 tab PO BID 2 Days Qty: 5 0RF prednisone 20 mg Tablet See Taper PO BREAKFAST Qty: 32 0RF Taper: Prednisone Taper 60 mg WITH BREAKFAST for 3 Days and 0 Hour 50 mg WITH BREAKFAST for 3 Days and 0 Hour 40 mg WITH BREAKFAST for 3 Days and 0 Hour 30 mg WITH BREAKFAST for 3 Days and 0 Hour 20 mg WITH BREAKFAST for 3 Days and 0 Hour 10 mg WITH BREAKFAST for 3 Days and 0 Hour Continued albuterol sulfate 2.5 mg /3 mL (0.083 %) solution for nebulization 2.5 mg inhalation Q4H PRN Qty: 25 0RF Rx Instructions: Use q4 hours and PRN for wheezing albuterol sulfate [Ventolin HFA] 90 mcg/actuation HFA aerosol inhaler 1 - 2 puff inhalation Q4H PRN PRN (Reason: Wheezing) Qty: 1 0RF ipratropium-albuterol 0.5 mg-3 mg(2.5 mg base)/3 mL solution for nebulization 3 ml inhalation Q6H PRN (Reason: shortness of breath) Qty: 90 0RF lisinopril 20 mg tablet 20 mg PO DAILY 30 Days Qty: 30 0RF lorazepam 0.5 mg tablet 0.5 mg PO Q8H PRN PRN (Reason: anxiety) 3 Days Qty: 9 0RF Trelegy Ellipta 100-62.5-25 mcg blister with device 1 inh inhalation DAILY gabapentin 400 mg capsule 400 mg PO Q6H metformin 500 mg tablet 500 mg PO DAILY ropinirole 2 mg tablet 2 mg PO QHS trazodone 150 mg tablet 150 mg PO QHS quetiapine 50 mg tablet 50 mg PO QHS albuterol sulfate 90 mcg/actuation HFA aerosol inhaler 2 puff inhalation Q6H PRN (Reason: shortness of breath or wheezing) Qty: 6.7 0RF codeine-guaifenesin [Guaifenesin AC] 10-100 mg/5 mL liquid 10 ml PO Q6H PRN (Reason: cough) Qty: 237 1RF Rx Instructions: one or two teaspoons every six hours as needed for cough Discontinued furosemide [Lasix] 40 mg tablet 40 mg PO DAILY Qty: 7 0RF Referrals / Follow Up: Iris Villarreal MD [Med Staff - Active Staff] - 02/14/25 2:00 pm (The hospital van will pick you up at your home at 1:30pm for your appointment. ) Doug Swift DO [Med Staff - Active Staff] - Care Physician,No Primary [Primary Care Provider] - Disposition Disposition (needs filled in before D/C Order can be placed): Home, Self Care Charges/Coding Visit Charges Inpatient E&M: 87599 Disch Hosp >30min 11/12/24 1344 <Electronically signed by Chana Staley MD> Cosigner Signature (if applicable): CC: Dr. Chana Staley MD; No Primary Care Physician~ Signed [facility] Work Phone: [phone] Discharge summary Author Chana Staley [facility] Note Date/Time November 12, 2024 1:3 4pm [facility] Medical Records Department [address] [place] [id number] Instructions for Home/Discharge Instructions 11/12/24 1152 MR#: [id number] Acct: [id number] Name: CLEMENTINA HOOD Rep #:[id number] : 1955 69 From: Chana Staley MD PCP: Care Physician,No Primary Status :ADM NADEGE Discharge Instructions Diet Discharge Diet: - DC O2, CPAP, BIPAP needs Home O2 Discharge instructions: Yes Type of respiratory needs?: Oxygen Oxygen frequency: With Ambulation Oxygen liters per minute during Ambulation: 3 Dressing / Incision Discharge Activity: Use Walker Follow Up Care Test Results: Test results from this visit will be discussed in further detail at your follow- up appointment, if applicable. Discharge Plan Admission Admit Date/Time: 11/10/24 18:56 Primary Reason for Your Visit: Shortness of breath Attending Provider: Chana Staley Primary Care Provider: Care Physician,No Primary Consulting Providers: Gaurang Donahue Instructions Patient Instructions: Asthma and COPD, COPD Quit Smoking Additional Instructions / Restrictions: DISCHARGE INSTRUCTIONS PLEASE READ *Please take this with you to your next doctors appointment* -You will need 1 more dose of azithromycin which you will take this evening and will need to take 1 dose of Augmentin tonight and then twice daily for 2 more days -You will be discharged on a prednisone taper: -60 mg daily x3 days -50mg daily x3 days -40mg daily x3 days -30mg daily x3 days -20mg daily x3 days -10mg daily x3 days -It is advised that you use your nebulizers at home 3 times daily until you are able to renew your home inhalers -Please continue to use your 3 L of oxygen with ambulation -You would benefit from establishing with pulmonology on discharge, contact information below, advised to contact the office to schedule an establish care appointment -You have an appointment to schedule with a new primary care physician 02/14/2025, information below -You indicated that you ran out of refills on your Ativan, as we discussed only several days of this can be sent in as it is a controlled substance, these were sent to your pharmacy along with your antibiotics and steroids -It is strongly advised that he refrain from smoking as this will worsen your breathing over time -Please call your primary care provider's office upon discharge to schedule a hospital follow up within 1 week. -For any concerning signs or symptoms please call 911 or proceed to the nearest emergency department Discharge Orders/Prescriptions Prescriptions: New azithromycin 500 mg tablet 500 mg PO QHS 1 Days Qty: 1 0RF amoxicillin-pot clavulanate 875-125 mg tablet 1 tab PO BID 2 Days Qty: 5 0RF prednisone 20 mg Tablet See Taper PO BREAKFAST Qty: 32 0RF Taper: Prednisone Taper 60 mg WITH BREAKFAST for 3 Days and 0 Hour 50 mg WITH BREAKFAST for 3 Days and 0 Hour 40 mg WITH BREAKFAST for 3 Days and 0 Hour 30 mg WITH BREAKFAST for 3 Days and 0 Hour 20 mg WITH BREAKFAST for 3 Days and 0 Hour 10 mg WITH BREAKFAST for 3 Days and 0 Hour Continued albuterol sulfate 2.5 mg /3 mL (0.083 %) solution for nebulization 2.5 mg inhalation Q4H PRN Qty: 25 0RF Rx Instructions: Use q4 hours and PRN for wheezing albuterol sulfate [Ventolin HFA] 90 mcg/actuation HFA aerosol inhaler 1 - 2 puff inhalation Q4H PRN PRN (Reason: Wheezing) Qty: 1 0RF ipratropium-albuterol 0.5 mg-3 mg(2.5 mg base)/3 mL solution for nebulization 3 ml inhalation Q6H PRN (Reason: shortness of breath) Qty: 90 0RF lisinopril 20 mg tablet 20 mg PO DAILY 30 Days Qty: 30 0RF lorazepam 0.5 mg tablet 0.5 mg PO Q8H PRN PRN (Reason: anxiety) 3 Days Qty: 9 0RF Trelegy Ellipta 100-62.5-25 mcg blister with device 1 inh inhalation DAILY gabapentin 400 mg capsule 400 mg PO Q6H metformin 500 mg tablet 500 mg PO DAILY ropinirole 2 mg tablet 2 mg PO QHS trazodone 150 mg tablet 150 mg PO QHS quetiapine 50 mg tablet 50 mg PO QHS albuterol sulfate 90 mcg/actuation HFA aerosol inhaler 2 puff inhalation Q6H PRN (Reason: shortness of breath or wheezing) Qty: 6.7 0RF codeine-guaifenesin [Guaifenesin AC] 10-100 mg/5 mL liquid 10 ml PO Q6H PRN (Reason: cough) Qty: 237 1RF Rx Instructions: one or two teaspoons every six hours as needed for cough Discontinued furosemide [Lasix] 40 mg tablet 40 mg PO DAILY Qty: 7 0RF Referrals / Follow Up: Iris Villarreal MD [Med Staff - Active Staff] - 02/14/25 2:00 pm (The hospital van will pick you up at your home at 1:30pm for your appointment. ) Doug Swift DO [Med Staff - Active Staff] - Care Physician,No Primary [Primary Care Provider] - Disposition Disposition (needs filled in before D/C Order can be placed): Home, Self Care 11/12/24 1334<Electronically signed by Chana Staley MD>Chana Staley MD CC: Dr. Gaurang Donahue MD; No Primary Care Physician ~ Signed [facility] Work Phone: [phone] Discharge summary [facility] Medical Records Department [address] [place] [address] Discharge Summary 11/12/24 1214 MR#: [id number] Acct: [id number] Name: HOODCLEMENTINA DANETTE Rep #:[id number] : 1955 69 From: Chana Staley MD PCP: Care Physician,No Primary Status :ADM NADEGE Location: [place] [address] Providers Date of Admission: 11/10/24 Date of Discharge: 11/12/24 Primary Care Physician: No Primary Care Phys Reason For Visit: SOB Diagnosis Discharge Diagnosis (1) COPD exacerbation: Status: Inactive Code(s): J44.1 - Chronic obstructive pulmonary disease with (acute) exacerbation Plan #Acute exacerbation of COPD on chronic hypoxic respiratory failure on 3 L home O2 w/ ambulation with concern for concomitant mild community-acquired pneumonia # Chronic stage I diastolic dysfunction # History of mood disorder NOS # CKD stage III b #Anxiety # RLS and peripheral neuropathy #Tobacco use #Hypertension Medications at Discharge Home Medications albuterol sulfate 2.5 mg/3 mL (0.083 %) solution for nebulization 2.5 mg (3 mL) inhalation Q4H PRN #25 vials 09/12/24 fluticasone fur. 100 mcg-umeclid 62.5 mcg-vilant 25 mcg inhalat.powder (Trelegy Ellipta) 1 inh inhalation DAILY 09/14/24 gabapentin 400 mg capsule 400 mg PO Q6H 09/14/24 metformin 500 mg tablet 500 mg PO DAILY 09/14/24 quetiapine 50 mg tablet 50 mg PO QHS 09/14/24 ropinirole 2 mg tablet 2 mg PO QHS 09/14/24 trazodone 150 mg tablet 150 mg PO QHS 09/14/24 albuterol sulfate 90 mcg/actuation aerosol inhaler 2 puff inhalation Q6H PRN shortness of breath orwheezing #6.7 grams 09/16/24 codeine 10 mg-guaifenesin 100 mg/5 mL oral liquid (Guaifenesin AC) 10 ml PO Q6H PRN cough #237 mL 09/16/24 albuterol sulfate 90 mcg/actuation aerosol inhaler (Ventolin HFA) 1 - 2 puff inhalation Q4H PRN PRNWheezing #1 ea 10/14/24 ipratropium 0.5 mg-albuterol 3 mg (2.5 mg base)/3 mL nebulization soln 3 ml inhalation Q6H PRN shortness of breath #90 mL 02/14/25 amoxicillin 875 mg-potassium clavulanate 125 mg tablet 1 tab PO BID 2 days #5 tabs 11/12/24 azithromycin 500 mg tablet 500 mg PO QHS 1 day #1 TAB 11/12/24 lisinopril 20 mg tablet 20 mg PO DAILY 30 days #30 tabs 11/12/24 lorazepam 0.5 mg tablet 0.5 mg PO Q8H PRN PRN anxiety 3 days #9 tabs 11/12/24 prednisone 20 mg tablet See Taper PO BREAKFAST #32 tabs 11/12/24 Hospital Course Summary of Care Provided Minutes Spent on Discharge: 33 Hospital Course: #Acute exacerbation of COPD on chronic hypoxic respiratory failure on 2 L home O2 w/ ambulation with concern for concomitant mild community-acquired pneumonia # Chronic stage I diastolic dysfunction # History of mood disorder NOS # CKD stage III b #Anxiety # RLS and peripheral neuropathy #Tobacco use #Hypertension 69-year-old female history as above presented [facility] ED 11/10/2024 with worsening shortness of breath and was found to have a COPD exacerbation as well as concern for component of community-acquired pneumonia and she was placed on antibiotics. She has also been placed on steroidsand breathing treatments for the COPD exacerbation. Patient improved on nebs and steroids, given she was started on antibiotics and is difficult to tell if this contributed to her improvement she wassent with antibiotics to complete course. Suspect patient COPD exacerbation was combination of smoking and that she was out of her Trelegy at home. Patient moved here couple months ago and does not malin ve any doctors and reports she is out of some of her medications. Case management evaluated patientand set her up an appointment with a PCP. Patient improved during admission and on 11/12/2024 was stable for discharge, patient still has cough but reports breathing improving and she is comfortable going home. Patient reported she does still have most of her medications but lisinopril and lorazepamseem to be too that she ran out of, prescription for lisinopril sent, sent short-term prescription for lorazepam as needed. Advised patient use nebulizer scheduled until she can resume her home inhaler. Patient verbalized understanding and was up and ambulated and did well, did not need oxygen at rest and again felt stable for discharge home. Discharge instructionsas followed: -You will need 1 more dose of azithromycin which you will take this evening and will need to take 1dose of Augmentin tonight and then twice daily for 2 more days -You will be discharged on a prednisone taper: -60 mg daily x3 days -50mg daily x3 days -40mg daily x3 days -30mg daily x3 days -20mg daily x3 days -10mg daily x3 days -It is advised that you use your nebulizers at home 3 times daily until you are able to renew your home inhalers -Please continue to use your 2 L of oxygen with ambulation -You would benefit from establishing with pulmonology on discharge, contact information below, advised to contact the office to schedule an establish care appointment -You have an appointment to schedule with a new primary care physician 02/14/2025, information below -You indicated that you ran out of refills on your Ativan, as we discussed only several days of this can be sent in as it is a controlled substance, these were sent to your pharmacy along with your antibiotics and steroids -It is strongly advised that he refrain from smoking as this will worsen your breathing over time -Please call your primary care provider's office upon discharge to schedule a hospital follow up within 1 week. -For any concerning signs or symptoms please call 911 or proceed to the nearest emergency department Physical Exam Narrative General: Alert, oriented, no apparent distress HEENT: Atraumatic, normocephalic Eyes: Anicteric, normal conjunctiva, extraocular movements grossly intact Neck: Supple Respiratory: Improved respiratory effort, wheezes resolved Cardiovascular: Regular rate GI: Soft, nontender, nondistended Extremities: No edema Musculoskeletal: Moving all extremities Neuro: No overt focal neurological deficits Skin: No rashes appreciated Psych: Cooperative Medical Records Data Medical Nutrition Assessment Dietitian: Malnutrition Criteria Met Start: 11/11/24 14:33 Freq: Status: Active Protocol: Document 11/11/24 14:34 SLA (Rec: 11/11/24 14:34 SLA [email or web address]) Nutrition Malnutrition Evidence of Yes Malnutrition Exists Malnutrition (severe Acute Illness/Injury ): Evidenced By Suboptimal Energy Intake (Severe),Weight Loss (Severe) Clinical Problem Acute Disease or Injury Related Malnutrition Etiology related to acute illness and inadequate energy intake Signs/Symptoms as evidenced by po intake meeting < 75% of est nutritional needs and 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 Problem Recommendation Dietitian Will liberalize diet to Regular No Added Salt d/t signs Recommendations/ and symptoms of malnutrition Changes Will continue Ensure Plus High Protein w/ medpass for increased nutrition if consumed Weight / BMI Weight Weight: 69.9 kg Body Mass Index (BMI) 24.8 ABG / Lab / Microbiology Data 11/12/24 07:05 11/12/24 07:05 Laboratory: Laboratory Results - last 24 hr 11/12/24 07:05: WBC 6.3, RBC 4.85, Hgb 13.4, Hct 43.7, MCV 90.1, MCH 27.6, MCHC 30.7 L, RDW Std Deviation 49.9 H, RDW Coeff of Magno 14.9 H, Plt Count 228, MPV 10.0, Immature Gran % (Auto) 0.200, Neut % (Auto) 82.4 H, Lymph % (Auto) 13.6 L,Hooker % (Auto) 3.8, Eos % (Auto) 0.0, Baso % (Auto) 0.0, Absolute Neuts (auto) 5.2, Absolute Lymphs (auto) 0.86, Nucleated RBC % 0, Sodium 139, Potassium 5.0, Chloride 101, Carbon Dioxide 26.7, Anion Gap 11, BUN 28 H, Creatinine 1.07, Estim Creat Clear Calc 45.14 L, Est GFR (MDRD) Non-Af 56 L, BUN/Creatinine Ratio 26.2 H, Glucose 130 H, Calcium 9.1 Microbiology: Microbiology 11/10/24 22:50 Mucosa - Nasopharyngeal Respiratory Panel (PCR) - Final 11/10/24 23:10 Nasal Secretion MRSA (PCR) - Final 11/10/24 22:47 Urine, Clean Catch Legionella Antigen - Final 11/10/24 15:45 Mucosa - Nose SARS-CoV-2, Influenza & RSV (PCR) - Final D/C Instructions Discharge Diet: - DC O2, CPAP, BIPAP Needs Home O2 Discharge instructions: Yes Type of respiratory needs?: Oxygen Oxygen frequency: With Ambulation Oxygen liters per minute during Ambulation: 2 DC home with Oxygen: Yes Home O2 MD Review: I have reviewed the oxygen testing, and the patient qualifies for home oxygen equipment and portability. The patient is mobile in the home and the community. Meaningful Use Info Meaningful Use Meaningful Use Diagnoses (Choose all that apply): None applicable Ischemic Stroke Statin Dosing Therapy Reference: STATIN DOSE THERAPY REFERENCE: * Patients > 75 years receive moderate or high dose statin therapy. * Patients 75 years or YOUNGER should receive HIGH intensity statin dose unless contraindicated. You will be required to document reason for non-treatment if statin daily dose does not meet guidelines. HIGH DOSE STATIN THERAPY DAILY Atorvastatin > than or = to 40 mg Rosuvastatin > than or = to 20 mg Amlodipine + Atorvastatin > than or = to 2.5/40 mg Ezetimibe + Simvastatin 10/80 mg Simvastatin 80mg Discharge Plan Admission Admit Date/Time: 11/10/24 18:56 Primary Reason for Your Visit: Shortness of breath Attending Provider: Chana Staley Primary Care Provider: Care Physician,No Primary Consulting Providers: Gaurang Doanhue Instructions Patient Instructions: Asthma and COPD, COPD Quit Smoking Additional Instructions / Restrictions: DISCHARGE INSTRUCTIONS PLEASE READ *Please take this with you to your next doctors appointment* -You will need 1 more dose of azithromycin which you will take this evening and will need to take 1dose of Augmentin tonight and then twice daily for 2 more days -You will be discharged on a prednisone taper: -60 mg daily x3 days -50mg daily x3 days -40mg daily x3 days -30mg daily x3 days -20mg daily x3 days -10mg daily x3 days -It is advised that you use your nebulizers at home 3 times daily until you are able to renew your home inhalers -Please continue to use your 2 L of oxygen with ambulation -You would benefit from establishing with pulmonology on discharge, contact information below, advised to contact the office to schedule an establish care appointment -You have an appointment to schedule with a new primary care physician 02/14/2025, information below -You indicated that you ran out of refills on your Ativan, as we discussed only several days of this can be sent in as it is a controlled substance, these were sent to your pharmacy along with your antibiotics and steroids -It is strongly advised that he refrain from smoking as this will worsen your breathing over time -Please call your primary care provider's office upon discharge to schedule a hospital follow up within 1 week. -For any concerning signs or symptoms please call 911 or proceed to the nearest emergency department Discharge Orders/Prescriptions Prescriptions: New azithromycin 500 mg tablet 500 mg PO QHS 1 Days Qty: 1 0RF amoxicillin-pot clavulanate 875-125 mg tablet 1 tab PO BID 2 Days Qty: 5 0RF prednisone 20 mg Tablet See Taper PO BREAKFAST Qty: 32 0RF Taper: Prednisone Taper 60 mg WITH BREAKFAST for 3 Days and 0 Hour 50 mg WITH BREAKFAST for 3 Days and 0 Hour 40 mg WITH BREAKFAST for 3 Days and 0 Hour 30 mg WITH BREAKFAST for 3 Days and 0 Hour 20 mg WITH BREAKFAST for 3 Days and 0 Hour 10 mg WITH BREAKFAST for 3 Days and 0 Hour Continued albuterol sulfate 2.5 mg /3 mL (0.083 %) solution for nebulization 2.5 mg inhalation Q4H PRN Qty: 25 0RF Rx Instructions: Use q4 hours and PRN for wheezing albuterol sulfate [Ventolin HFA] 90 mcg/actuation HFA aerosol inhaler 1 - 2 puff inhalation Q4H PRN PRN (Reason: Wheezing) Qty: 1 0RF ipratropium-albuterol 0.5 mg-3 mg(2.5 mg base)/3 mL solution for nebulization 3 ml inhalation Q6H PRN (Reason: shortness of breath) Qty: 90 0RF lisinopril 20 mg tablet 20 mg PO DAILY 30 Days Qty: 30 0RF lorazepam 0.5 mg tablet 0.5 mg PO Q8H PRN PRN (Reason: anxiety) 3 Days Qty: 9 0RF Trelegy Ellipta 100-62.5-25 mcg blister with device 1 inh inhalation DAILY gabapentin 400 mg capsule 400 mg PO Q6H metformin 500 mg tablet 500 mg PO DAILY ropinirole 2 mg tablet 2 mg PO QHS trazodone 150 mg tablet 150 mg PO QHS quetiapine 50 mg tablet 50 mg PO QHS albuterol sulfate 90 mcg/actuation HFA aerosol inhaler 2 puff inhalation Q6H PRN (Reason: shortness of breath or wheezing) Qty: 6.7 0RF codeine-guaifenesin [Guaifenesin AC] 10-100 mg/5 mL liquid 10 ml PO Q6H PRN (Reason: cough) Qty: 237 1RF Rx Instructions: one or two teaspoons every six hours as needed for cough Discontinued furosemide [Lasix] 40 mg tablet 40 mg PO DAILY Qty: 7 0RF Referrals / Follow Up: Iris Villarreal MD [Med Staff - Active Staff] - 06/17/25 2:00 pm (The hospital van will pick you upat your home at 1:30pm for your appointment. ) Doug Swift DO [Med Staff - Active Staff] - Care Physician,No Primary [Primary Care Provider] - Disposition Disposition (needs filled in before D/C Order can be placed): Home, Self Care Charges/Coding Visit Charges Inpatient E&M: 32101 Disch Hosp >30min 11/12/24 1344 Cosigner Signature (if applicable): CC: Dr. Chana Staley MD; No Primary Care Physician~ Signed [facility]03-15-2025 Discharge summary [facility] Medical Records Department [address] [place] [address] Instructions for Home/Discharge Instructions 11/12/24 1152 MR#: [id number] Acct: [id number] Name: CLEMENTINA HOOD Rep #:[id number] : 1955 69 From: Chana Staley MD PCP: Care Physician,No Primary Status :ADM NADEGE Discharge Instructions Diet Discharge Diet: - DC O2, CPAP, BIPAP needs Home O2 Discharge instructions: Yes Type of respiratory needs?: Oxygen Oxygen frequency: With Ambulation Oxygen liters per minute during Ambulation: 3 Dressing / Incision Discharge Activity: Use Walker Follow Up Care Test Results: Test results from this visit will be discussed in further detail at your follow- up appointment, if applicable. Discharge Plan Admission Admit Date/Time: 11/10/24 18:56 Primary Reason for Your Visit: Shortness of breath Attending Provider: Chana Staley Primary Care Provider: Care Physician,No Primary Consulting Providers: Gaurang Donahue Instructions Patient Instructions: Asthma and COPD, COPD Quit Smoking Additional Instructions / Restrictions: DISCHARGE INSTRUCTIONS PLEASE READ *Please take this with you to your next doctors appointment* -You will need 1 more dose of azithromycin which you will take this evening and will need to take 1dose of Augmentin tonight and then twice daily for 2 more days -You will be discharged on a prednisone taper: -60 mg daily x3 days -50mg daily x3 days -40mg daily x3 days -30mg daily x3 days -20mg daily x3 days -10mg daily x3 days -It is advised that you use your nebulizers at home 3 times daily until you are able to renew your home inhalers -Please continue to use your 3 L of oxygen with ambulation -You would benefit from establishing with pulmonology on discharge, contact information below, advised to contact the office to schedule an establish care appointment -You have an appointment to schedule with a new primary care physician 02/14/2025, information below -You indicated that you ran out of refills on your Ativan, as we discussed only several days of this can be sent in as it is a controlled substance, these were sent to your pharmacy along with your antibiotics and steroids -It is strongly advised that he refrain from smoking as this will worsen your breathing over time -Please call your primary care provider's office upon discharge to schedule a hospital follow up within 1 week. -For any concerning signs or symptoms please call 911 or proceed to the nearest emergency department Discharge Orders/Prescriptions Prescriptions: New azithromycin 500 mg tablet 500 mg PO QHS 1 Days Qty: 1 0RF amoxicillin-pot clavulanate 875-125 mg tablet 1 tab PO BID 2 Days Qty: 5 0RF prednisone 20 mg Tablet See Taper PO BREAKFAST Qty: 32 0RF Taper: Prednisone Taper 60 mg WITH BREAKFAST for 3 Days and 0 Hour 50 mg WITH BREAKFAST for 3 Days and 0 Hour 40 mg WITH BREAKFAST for 3 Days and 0 Hour 30 mg WITH BREAKFAST for 3 Days and 0 Hour 20 mg WITH BREAKFAST for 3 Days and 0 Hour 10 mg WITH BREAKFAST for 3 Days and 0 Hour Continued albuterol sulfate 2.5 mg /3 mL (0.083 %) solution for nebulization 2.5 mg inhalation Q4H PRN Qty: 25 0RF Rx Instructions: Use q4 hours and PRN for wheezing albuterol sulfate [Ventolin HFA] 90 mcg/actuation HFA aerosol inhaler 1 - 2 puff inhalation Q4H PRN PRN (Reason: Wheezing) Qty: 1 0RF ipratropium-albuterol 0.5 mg-3 mg(2.5 mg base)/3 mL solution for nebulization 3 ml inhalation Q6H PRN (Reason: shortness of breath) Qty: 90 0RF lisinopril 20 mg tablet 20 mg PO DAILY 30 Days Qty: 30 0RF lorazepam 0.5 mg tablet 0.5 mg PO Q8H PRN PRN (Reason: anxiety) 3 Days Qty: 9 0RF Trelegy Ellipta 100-62.5-25 mcg blister with device 1 inh inhalation DAILY gabapentin 400 mg capsule 400 mg PO Q6H metformin 500 mg tablet 500 mg PO DAILY ropinirole 2 mg tablet 2 mg PO QHS trazodone 150 mg tablet 150 mg PO QHS quetiapine 50 mg tablet 50 mg PO QHS albuterol sulfate 90 mcg/actuation HFA aerosol inhaler 2 puff inhalation Q6H PRN (Reason: shortness of breath or wheezing) Qty: 6.7 0RF codeine-guaifenesin [Guaifenesin AC] 10-100 mg/5 mL liquid 10 ml PO Q6H PRN (Reason: cough) Qty: 237 1RF Rx Instructions: one or two teaspoons every six hours as needed for cough Discontinued furosemide [Lasix] 40 mg tablet 40 mg PO DAILY Qty: 7 0RF Referrals / Follow Up: Iris Villarreal MD [Med Staff - Active Staff] - 02/14/25 2:00 pm (The hospital van will pick you upat your home at 1:30pm for your appointment. ) Doug Swift DO [Med Staff - Active Staff] - Care Physician,No Primary [Primary Care Provider] - Disposition Disposition (needs filled in before D/C Order can be placed): Home, Self Care 11/12/24 1334Pmichelle Staley MD CC: Dr. Gaurang Donahue MD; No Primary Care Physician ~ Signed [facility]03-15-2025 [facility] Medical Records Department [address] [place] [id number] Discharge Summary 11/12/24 1214 MR#: [id number] Acct: [id number] Name: CLEMENTINA HOOD Rep #: [id number] : 1955 69 From: Chana Staley MD PCP: Care Physician,No Primary Status:ADM NADEGE Location: [place] [id number] Providers Date of Admission: 11/10/24 Date of Discharge: 11/12/24 Primary Care Physician: No Primary Care Phys Reason For Visit: SOB Diagnosis Discharge Diagnosis (1) COPD exacerbation: Status: Inactive Code(s): J44.1 - Chronic obstructive pulmonary disease with (acute) exacerbation Plan #Acute exacerbation of COPD on chronic hypoxic respiratory failure on 3 L home O2 w/ ambulation with concern for concomitant mild community-acquired pneumonia # Chronic stage I diastolic dysfunction # History of mood disorder NOS # CKD stage III b #Anxiety # RLS and peripheral neuropathy #Tobacco use #Hypertension Medications at Discharge Home Medications albuterol sulfate 2.5 mg/3 mL (0.083 %) solution for nebulization 2.5 mg (3 mL) inhalation Q4H PRN #25 vials 09/12/24 fluticasone fur. 100 mcg-umeclid 62.5 mcg-vilant 25 mcg inhalat.powder (Trelegy Ellipta) 1 inh inhalation DAILY 09/14/24 gabapentin 400 mg capsule 400 mg PO Q6H 09/14/24 metformin 500 mg tablet 500 mg PO DAILY 09/14/24 quetiapine 50 mg tablet 50 mg PO QHS 09/14/24 ropinirole 2 mg tablet 2 mg PO QHS 09/14/24 trazodone 150 mg tablet 150 mg PO QHS 09/14/24 albuterol sulfate 90 mcg/actuation aerosol inhaler 2 puff inhalation Q6H PRN shortness of breath or wheezing #6.7 grams 09/16/24 codeine 10 mg-guaifenesin 100 mg/5 mL oral liquid (Guaifenesin AC) 10 ml PO Q6H PRN cough #237 mL 09/16/24 albuterol sulfate 90 mcg/actuation aerosol inhaler (Ventolin HFA) 1 - 2 puff inhalation Q4H PRN PRN Wheezing #1 ea 10/14/24 ipratropium 0.5 mg-albuterol 3 mg (2.5 mg base)/3 mL nebulization soln 3 ml inhalation Q6H PRN shortness of breath #90 mL 10/14/24 amoxicillin 875 mg-potassium clavulanate 125 mg tablet 1 tab PO BID 2 days #5 tabs 11/12/24 azithromycin 500 mg tablet 500 mg PO QHS 1 day #1 TAB 11/12/24 lisinopril 20 mg tablet 20 mg PO DAILY 30 days #30 tabs 11/12/24 lorazepam 0.5 mg tablet 0.5 mg PO Q8H PRN PRN anxiety 3 days #9 tabs 11/12/24 prednisone 20 mg tablet See Taper PO BREAKFAST #32 tabs 11/12/24 Hospital Course Summary of Care Provided Minutes Spent on Discharge: 33 Hospital Course: #Acute exacerbation of COPD on chronic hypoxic respiratory failure on 2 L home O2 w/ ambulation with concern for concomitant mild community-acquired pneumonia # Chronic stage I diastolic dysfunction # History of mood disorder NOS # CKD stage III b #Anxiety # RLS and peripheral neuropathy #Tobacco use #Hypertension 69-year-old female history as above presented [facility] ED 11/10/2024 with worsening shortness of breath and was found to have a COPD exacerbation as well as concern for component of community-acquired pneumonia and she was placed on antibiotics. She has also been placed on steroids and breathing treatments for the COPD exacerbation. Patient improved on nebs and steroids, given she was started on antibiotics and is difficult to tell if this contributed to her improvement she was sent with antibiotics to complete course. Suspect patient COPD exacerbation was combination of smoking and that she was out of her Trelegy at home. Patient moved here couple months ago and does not have any doctors and reports she is out of some of her medications. Case management evaluated patient and set her up an appointment with a PCP. Patient improved during admission and on 11/12/2024 was stable for discharge, patient still has cough but reports breathing improving and she is comfortable going home. Patient reported she does still have most of her medications but lisinopril and lorazepam seem to be too that she ran out of, prescription for lisinopril sent, sent short-term prescription for lorazepam as needed. Advised patient use nebulizer scheduled until she can resume her home inhaler. Patient verbalized understanding and was up and ambulated and did well, did not need oxygen at rest and again felt stable for discharge home. Discharge instructions as followed: -You will need 1 more dose of azithromycin which you will take this evening and will need to take 1 dose of Augmentin tonight and then twice daily for 2 more days -You will be discharged on a prednisone taper: -60 mg daily x3 days -50mg daily x3 days -40mg daily x3 days -30mg daily x3 days -20mg daily x3 days -10mg daily x3 days -It is advised that you use your nebulizers at home 3 times daily until you are able to renew your home inhalers -Please continue to use your 2 L of oxygen with ambulation -You would benefit from establishing with pulmonology on discharge, co (more content not included)...[facility]03-14-2025 Progress note Author Chana Staley [facility] Note Date/Time November 11, 2024 1:4 9pm [facility] Medical Records Department [address] [place] [address] Progress Note - Hospitalist 11/11/24 0722 MR#: [id number] Acct: [id number] Name: CLEMENTINA HOOD Rep #:[id number] : 1955 69 From: Chana Staley MD PCP: Care Physician,No Primary Status :ADM NADEGE Location: [place] [address] Reason for Visit Reason for Visit: Diagnoses Pneumonia, unspecified organism (11/10/24) Subjective Subjective Patient still short of breath and coughing, feels somewhat generally unwell. Upon discussing with patient she moved here a month and a half ago and did not establish with any new doctors so she is out of some but not all of her medications, has not been using her Trelegy because she did run out of that Objective Data Objective Data Vital Signs: Vital Signs Temp Pulse Resp BP Pulse Ox O2 Del Method O2 Flow Rate 97.8 F 62 16 131/52 H 98 Nasal Cannula 3 11/11/24 03:10 11/11/24 03:10 11/11/24 03:10 11/11/24 03:10 11/11/24 03:10 11/11/24 03:10 11/11/24 03:10 Oxygen Flow Rate (L/min) 3 Oxygen Delivery Method Nasal Cannula Weight: 69.9 kg Body Mass Index (BMI) 24.8 Intake & Output: Intake and Output for Last 24 Hours 11/09/24 11/10/24 11/11/24 23:59 23:59 23:59 Intake Total 50 / 50 344.75 / 344.75 Output Total 750 / 750 Balance 50 / -500 -405.25 / -405.25 Lab / Micro Data 11/11/24 06:06 11/11/24 06:06 Labs: Laboratory Results - last 24 hr 11/10/24 14:50: WBC 4.5, RBC 4.85, Hgb 13.4, Hct 43.0, MCV 88.7, MCH 27.6, MCHC 31.2 L, RDW Std Deviation 48.4 H, RDW Coeff of Magno 15.0 H, Plt Count 246, MPV 10.1, Immature Gran % (Auto) 0.200, Neut % (Auto) 58.0, Lymph % (Auto) 29.1, Hooker % (Auto) 9.0, Eos % (Auto) 3.3, Baso % (Auto) 0.4, Absolute Neuts (auto) 2.6, Absolute Lymphs (auto) 1.32, Nucleated RBC % 0, Sodium 141, Potassium 4.7, Chloride 103, Carbon Dioxide 24.3, Anion Gap 13, BUN 24 H, Creatinine 1.21 H, Estim Creat Clear Calc 43.64 L, Est GFR (MDRD) Non-Af 48 L, BUN/Creatinine Ratio 19.8, Glucose 81, Calcium 9.4, Troponin T High Sens 19 H, NT pro BNP II 392 11/11/24 06:06: WBC 2.4 L, RBC 4.52, Hgb 12.6, Hct 40.8, MCV 90.3, MCH 27.9, MCHC 30.9 L, RDW Std Deviation 48.3 H, RDW Coeff of Magno 14.7 H, Plt Count 217, MPV 10.1, Immature Gran % (Auto) 0.400, Neut % (Auto) 71.8 H, Lymph % (Auto) 22.8, Hooker % (Auto) 4.6, Eos % (Auto) 0.0, Baso % (Auto) 0.4, Absolute Neuts (auto) 1.7 L, Absolute Lymphs (auto) 0.55 L, Nucleated RBC % 0, PT 12.7, INR 0.9 Micro: Microbiology 11/10/24 22:50 Mucosa - Nasopharyngeal Respiratory Panel (PCR) - Final 11/10/24 23:10 Nasal Secretion MRSA (PCR) - Final 11/10/24 22:47 Urine, Clean Catch Legionella Antigen - Final 11/10/24 15:45 Mucosa - Nose SARS-CoV-2, Influenza & RSV (PCR) - Final Radiography Diagnostic Testing: Radiology Impression Chest X-Ray 11/10/24 15:45 IMPRESSION: Cardiomegaly with mild congestion. Reading Location: [facility] Physical Exam Narrative General: Alert, oriented, no apparent distress HEENT: Atraumatic, normocephalic Eyes: Anicteric, normal conjunctiva, extraocular movements grossly intact Neck: Supple Respiratory: Slight increased respiratory effort, scattered wheezes Cardiovascular: Regular rate GI: Soft, nontender, nondistended Extremities: No edema Musculoskeletal: Moving all extremities Neuro: No overt focal neurological deficits Skin: No rashes appreciated Psych: Cooperative Assessment & Plan Assessment/Plan (1) COPD exacerbation: PLAN: Plan #Acute exacerbation of COPD on chronic hypoxic respiratory failure on 3 L home O2 -Admit to floor, continuous O2 monitoring -Chest x-ray: Queried some pulmonary congestion but did not note any discrete infiltrate -COVID negative, negative respiratory panel, sputum culture if able -O2 in place, wean as tolerated -IV methylprednisone -Scheduled DuoNebs, suspect part of patient's worsening respiratory status as she is not taking her Trelegy Ellipta at home as she ran out of it and she continues to smoke -Albuterol prn -Antibiotics: Patient's on Rocephin and azithromycin due to some concerns for possible overlap of community-acquired pneumonia, lower suspicion for this but will obtain culture if able and will continue at this time -Incentive spirometer -Mucinex # Chronic stage I diastolic dysfunction -Patient had chest x-ray that queried some mild pulmonary vascular congestion however BNP was normal and symptoms seem more consistent with COPD exacerbation -Daily weights and I's and O's -Last echo 09/15/2024 with EF of 75% and stage I diastolic dysfunction, RVSP estimated to be 51 mmHg -Patient received Lasix x 1 in the ED, do not think patient needs further Lasix at this time -Will also DC echo given normal BNP and higher suspicion for exacerbation of COPD especially given lack of using Trelegy and continued smoking # History of mood disorder NOS -Unclear if patient was taking any medications at home but on her home med list Seroquel was listed so this was continued, patient reports she was taking some of her medications but had run out of some # CKD stage III b -Appears to be at baseline -Avoid nephrotoxic agents -Daily BMPs # RLS and peripheral neuropathy -Continue ropinirole and gabapentin #Tobacco use -Advise cessation -Nicotine replacement available if desired #Hypertension -Patient had ran out of lisinopril, is hypertensive here so this was resumed #DVT ppx: Lovenox subcu Chana Staley MD Charges/Coding Visit Charges Inpatient E&M: 47409 Subs Hosp L2 11/11/24 1349 <Electronically signed by Chana Staley MD> Cosigner Signature (if applicable): CC: ~ Signed [facility] Work Phone: [phone] Progress note [facility] Medical Records Department [address] [place] [address] Progress Note - Hospitalist 11/11/24721 MR#: [id number] Acct: [id number] Name: CLEMENTINA HOOD Rep #:[id number] : 1955 69 From: Chana Staley MD PCP: Care Physician,No Primary Status :ADM NADEGE Location: [place] [address] Reason for Visit Reason for Visit: Diagnoses Pneumonia, unspecified organism (11/10/24) Subjective Subjective Patient still short of breath and coughing, feels somewhat generally unwell. Upon discussing with patient she moved here a month and a half ago and did not establish with any new doctors so she is out of some but not all of her medications, has not been using her Trelegy because she did run out of that Objective Data Objective Data Vital Signs: Vital Signs Temp Pulse Resp BP Pulse Ox O2 Del Method O2 Flow Rate 97.8 F 62 16 131/52 H 98 Nasal Cannula 3 11/11/24 03:10 11/11/24 03:10 11/11/24 03:10 11/11/24 03:10 11/11/24 03:10 11/11/24 03:10 11/11/24 03:10 Oxygen Flow Rate (L/min) 3 Oxygen Delivery Method Nasal Cannula Weight: 69.9 kg Body Mass Index (BMI) 24.8 Intake & Output: Intake and Output for Last 24 Hours 11/09/24 11/10/24 11/11/24 23:59 23:59 23:59 Intake Total 50 / 50 344.75 / 344.75 Output Total 750 / 750 Balance 50 / -500 -405.25 / -405.25 Lab / Micro Data 11/11/24 06:06 11/11/24 06:06 Labs: Laboratory Results - last 24 hr 11/10/24 14:50: WBC 4.5, RBC 4.85, Hgb 13.4, Hct 43.0, MCV 88.7, MCH 27.6, MCHC 31.2 L, RDW Std Deviation 48.4 H, RDW Coeff of Magno 15.0 H, Plt Count 246, MPV 10.1, Immature Gran % (Auto) 0.200, Neut % (Auto) 58.0, Lymph % (Auto) 29.1, Hooker % (Auto) 9.0, Eos % (Auto) 3.3, Baso % (Auto) 0.4, AbsoluteNeuts (auto) 2.6, Absolute Lymphs (auto) 1.32, Nucleated RBC % 0, Sodium 141, Potassium 4.7, Chloride 103, Carbon Dioxide 24.3, Anion Gap 13, BUN 24 H, Creatinine 1.21 H, Estim Creat Clear Calc 43.64L, Est GFR (MDRD) Non-Af 48 L, BUN/Creatinine Ratio 19.8, Glucose 81, Calcium 9.4, Troponin T High Sens 19 H, NT pro BNP II 392 11/11/24 06:06: WBC 2.4 L, RBC 4.52, Hgb 12.6, Hct 40.8, MCV 90.3, MCH 27.9, MCHC 30.9 L, RDW Std Deviation 48.3 H, RDW Coeff of Magno 14.7 H, Plt Count 217, MPV 10.1, Immature Gran % (Auto) 0.400, Neut % (Auto) 71.8 H, Lymph % (Auto) 22.8, Hooker % (Auto) 4.6, Eos % (Auto) 0.0, Baso % (Auto) 0.4, Absolute Neuts (auto) 1.7 L, Absolute Lymphs (auto) 0.55 L, Nucleated RBC % 0, PT 12.7, INR 0.9 Micro: Microbiology 11/10/24 22:50 Mucosa - Nasopharyngeal Respiratory Panel (PCR) - Final 11/10/24 23:10 Nasal Secretion MRSA (PCR) - Final 11/10/24 22:47 Urine, Clean Catch Legionella Antigen - Final 11/10/24 15:45 Mucosa - Nose SARS-CoV-2, Influenza & RSV (PCR) - Final Radiography Diagnostic Testing: Radiology Impression Chest X-Ray 03/13/25 15:45 IMPRESSION: Cardiomegaly with mild congestion. Reading Location: [facility] Physical Exam Narrative General: Alert, oriented, no apparent distress HEENT: Atraumatic, normocephalic Eyes: Anicteric, normal conjunctiva, extraocular movements grossly intact Neck: Supple Respiratory: Slight increased respiratory effort, scattered wheezes Cardiovascular: Regular rate GI: Soft, nontender, nondistended Extremities: No edema Musculoskeletal: Moving all extremities Neuro: No overt focal neurological deficits Skin: No rashes appreciated Psych: Cooperative Assessment & Plan Assessment/Plan (1) COPD exacerbation: PLAN: Plan #Acute exacerbation of COPD on chronic hypoxic respiratory failure on 3 L home O2 -Admit to floor, continuous O2 monitoring -Chest x-ray: Queried some pulmonary congestion but did not note any discrete infiltrate -COVID negative, negative respiratory panel, sputum culture if able -O2 in place, wean as tolerated -IV methylprednisone -Scheduled DuoNebs, suspect part of patient's worsening respiratory status as she is not taking herTrelegy Ellipta at home as she ran out of it and she continues to smoke -Albuterol prn -Antibiotics: Patient's on Rocephin and azithromycin due to some concerns for possible overlap of community-acquired pneumonia, lower suspicion for this but will obtain culture if able and will continue at this time -Incentive spirometer -Mucinex # Chronic stage I diastolic dysfunction -Patient had chest x-ray that queried some mild pulmonary vascular congestion however BNP was normal and symptoms seem more consistent with COPD exacerbation -Daily weights and I's and O's -Last echo 09/15/2024 with EF of 75% and stage I diastolic dysfunction, RVSP estimated to be 51 mmHg -Patient received Lasix x 1 in the ED, do not think patient needs further Lasix at this time -Will also DC echo given normal BNP and higher suspicion for exacerbation of COPD especially given lack of using Trelegy and continued smoking # History of mood disorder NOS -Unclear if patient was taking any medications at home but on her home med list Seroquel was listedso this was continued, patient reports she was taking some of her medications but had run out of some # CKD stage III b -Appears to be at baseline -Avoid nephrotoxic agents -Daily BMPs # RLS and peripheral neuropathy -Continue ropinirole and gabapentin #Tobacco use -Advise cessation -Nicotine replacement available if desired #Hypertension -Patient had ran out of lisinopril, is hypertensive here so this was resumed #DVT ppx: Lovenox subcu Chana Staley MD Charges/Coding Visit Charges Inpatient E&M: 16399 Subs Hosp L2 11/11/24 1349 Cosigner Signature (if applicable): CC: ~ Signed [facility]03-14-2025 Discharge summary Author Bennie Dorsey [facility] Note Date/Time November 10, 2024 10: 07pm [facility] Medical Records Department [address] [place] [address] Emergency Department Summary 11/10/24 MR#: [id number] Acct: [id number] Name: CLEMENTINA HOOD Rep #:[id number] : 1955 69 From: Bennie Aranda PCP: Care Physician,No Primary Status :ADM NADEGE Location: [address] History of Present Illness Chief Complaint: Shortness of Breath PFSH PFSH Medical History Kidney disease Bipolar disorder Anxiety Depression Osteoporosis Smoker Chest pain Hypertension Migraines COPD (chronic obstructive pulmonary disease) Kidney disease Home Medications ?Medication ?Instructions ?Recorded ?Last Taken ?Type albuterol sulfate 2.5 mg/3 mL 2.5 mg (3 mL) inhalation Q4H PRN 09/12/24 11/10/24 Rx (0.083 %) solution for nebulization #25 vials furosemide 40 mg tablet (Lasix) 40 mg PO DAILY #7 tabs 09/12/24 Unknown Rx fluticasone fur. 100 mcg-umeclid 1 inh inhalation KYLEE Y 09/14/24 Unknown History 62.5 mcg-vilant 25 mcg inhalat.powder (Trelegy Ellipta) gabapentin 400 mg capsule 400 mg PO Q6H 09/14/2411/10 History lisinopril 20 mg tablet 20 mg PO DAILY 09/14/24 Unkn own History lorazepam 0.5 mg tablet 0.5 mg PO Q8H PRN PRN anxiet y 09/14/24 Unknown History metformin 500 mg tablet 500 mg PO DAILY 09/14/24 History quetiapine 50 mg tablet 50 mg PO QHS 09/14/24 History ropinirole 2 mg tablet 2 mg PO QHS 09/14/24 5 History trazodone 150 mg tablet 150 mg PO QHS 09/14/2411/09 History albuterol sulfate 90 mcg/actuation 2 puff inhalation Q 6H PRN 09/16/24 11/09/24 Rx aerosol inhaler shortness of breath or wheez ing #6.7 grams codeine 10 mg-guaifenesin 100 mg/5 10 ml PO Q6H PRN co ugh #237 mL 09/16/24 Unknown Rx mL oral liquid (Guaifenesin AC) albuterol sulfate 90 mcg/actuation 1 - 2 puff inhalati on Q4H PRN PRN 10/14/24 11/09/24 Rx aerosol inhaler (Ventolin HFA) Wheezing #1 ea ipratropium 0.5 mg-albuterol 3 mg 3 ml inhalation Q6H PRN shortness 10/14/24 11/10/24 Rx (2.5 mg base)/3 mL nebulization of breath #90 mL soln Allergy/AdvReac Type Severity Reaction Status Date / Time No Known Allergies Allergy Verified 11/10/24 15:07 Surgical History History of appendectomy Social History household members: family housing: house Smoking Status: Current every day smoker tobacco type: cigarettes alcohol intake: never substance use type: does not use EXAM Physical Exam Const Vital Signs: 11/10/24 15:03 11/10/24 15:10 11/10/24 15:35 Temperature 98.3 F Temperature Source Oral Pulse Rate 73 71 Respiratory Rate 26 H 18 Respiratory Effort Short of Breath Labored Respiratory Pattern Normal Normal Blood Pressure 152/130 H Blood Pressure Mean 137 Pulse Ox 99 Oxygen Delivery Method Nasal Cannula Nasal Cannula Oxygen Flow Rate (L/min) 3 3 11/10/24 15:44 11/10/24 15:45 11/10/24 16:00 Temperature Temperature Source Pulse Rate 72 72 Respiratory Rate 26 H 20 H Respiratory Effort Respiratory Pattern Blood Pressure 127/112 H Blood Pressure Mean 119 Pulse Ox 99 99 Oxygen Delivery Method Nasal Cannula Oxygen Flow Rate (L/min) 3 11/10/24 16:00 11/10/24 16:07 11/10/24 16:15 Temperature 97.8 F Temperature Source Oral Pulse Rate 84 71 Respiratory Rate 31 H 18 Respiratory Effort Respiratory Pattern Blood Pressure 119/52 L 163/69 H 163/69 H Blood Pressure Mean 67 100 94 Pulse Ox 98 97 Oxygen Delivery Method Nasal Cannula Oxygen Flow Rate (L/min) 3 11/10/24 16:18 11/10/24 16:30 11/10/24 16:45 Temperature Temperature Source Pulse Rate 81 77 71 Respiratory Rate 25 H 16 15 Respiratory Effort Respiratory Pattern Blood Pressure 163/69 H 138/59 H 127/67 H Blood Pressure Mean 100 81 87 Pulse Ox 99 97 98 Oxygen Delivery Method Oxygen Flow Rate (L/min) 11/10/24 17:00 11/10/24 17:00 11/10/24 17:15 Temperature 98 F Temperature Source Oral Pulse Rate 76 72 77 Respiratory Rate 24 H 15 15 Respiratory Effort Respiratory Pattern Blood Pressure 158/70 H 148/63 H 158/70 H Blood Pressure Mean 99 86 95 Pulse Ox 97 97 98 Oxygen Delivery Method Oxygen Flow Rate (L/min) 11/10/24 17:30 11/10/24 17:45 11/10/24 18:00 Temperature 98.5 F Temperature Source Oral Pulse Rate 81 77 78 Respiratory Rate 13 16 22 H Respiratory Effort Respiratory Pattern Blood Pressure 153/76 H 153/76 H Blood Pressure Mean 96 101 Pulse Ox 97 95 98 Oxygen Delivery Method Nasal Cannula Oxygen Flow Rate (L/min) 3 11/10/24 18:00 11/10/24 18:05 11/10/24 18:15 Temperature 98.5 F Temperature Source Pulse Rate 82 88 72 Respiratory Rate 19 H 22 H 16 Respiratory Effort Respiratory Pattern Blood Pressure 159/75 H 163/75 H Blood Pressure Mean 103 97 Pulse Ox 97 97 Oxygen Delivery Method Nasal Cannula Oxygen Flow Rate (L/min) 3 11/10/24 18:30 11/10/24 18:45 Temperature Temperature Source Pulse Rate 73 78 Respiratory Rate 21 H 28 H Respiratory Effort Respiratory Pattern Blood Pressure 163/76 H 150/99 H Blood Pressure Mean 98 112 Pulse Ox Oxygen Delivery Method Oxygen Flow Rate (L/min) MDM MDM MDM Narrative Medical decision making narrative: HISTORY OF PRESENT ILLNESS: 69-year-old female history of COPD, hypertension, type 2 diabetes, bipolar disorder s presents with concern for shortness of breath. Patient states he is been sick for 1 week. She notes chest reviewed at baseline. She notes she had increased oxygen to 4 L. She notes a nonproductive cough and chest tightness aswell. She notes this may be a COPD exacerbation. She does endorse bilateral leg swelling. Notes chest pressure as well. The chest pressure is not exertional. Is not radiating. Is not ripping or tearing. She denies any history of connective tissue disorders or any family history of any aortic pathology. No sick contacts. No vomiting or diarrhea. The patient denies recent surgery in the last 4 weeks or immobilization in the last 3 days, denies previous diagnosis of DVT or PE, hemoptysis, unilateral leg swelling or malignancy with treatment the last 6 months or palliative. No estrogen use noted. REVIEW OF SYSTEMS: Pertinent positives: Shortness of breath, cough chest tightness Pertinent negatives: Syncope, unilateral leg swelling PHYSICAL EXAM: Nursing triage notes reviewed, Vital signs reviewed Constitutional: please see mdm HENT: MMM Eyes: Pupils equal round and reactive to light, Extraocular muscles intact Neck: No stridor, no JVD, full neck ROM Lungs: Clear to auscultation, No wheezing or rales. No increased work of breathing, no conversational dyspnea, no accessory muscle use, no nasal flaring. No respiratory distress noted Heart: Regular rate and rhythm, No murmurs, No rubs and No gallops, 2+ distal pulses (radial, femoral, posterior tibial) in all extremities Abdomen: Soft, there is no tenderness, rigidity, rebound or guarding, no obviousperitoneal signs, no palpable pulsatile abdominal masses, no auscultated abdominal bruit : No CVAT Extremities: 1-2+ pitting edema bilateral lower extremities Neuro: No new focal neurological deficits, cranial nerves II through XII intact,5/5 strength in all present extremities. Intact sensation to light touch in all present extremities, 2+ reflexes bilateral patella tendons. Skin: No rash or lesions noted MEDICAL DECISION MAKING: Chief Complaint: Shortness of breath External records reviewed: Reviewed prior cardiovascular testing: Reviewed echocardiogram from 2024 which showed an ejection fraction 75% Factors affecting care: As per HPI Social determinants of health history mental health disorder History obtained from others: EMS Consults: internal medicine (Dr. Donahue) [facility] Narrative: The patient was initially hemodynamically stable saturating 98% on 3 L nasal cannula, she is tachypneic. Afebrile. Exam with tight coarse breath sounds with no obvious focal consolidation. I considered the following differential diagnosis: COPD exacerbation, COVID, RSV, flu, pneumonia, anemia, electrolyte disturbance, ACS I obtained a broad lab and imaging workup to further elucidate the etiology of the patient's complaints. I initially treated the patient with Tylenol with codeine for cough, DuoNeb breathing treatments and steroids to treat COPD empirically While I considered pulmonary embolism as a potential etiology the patient had a low risk Wells score, focal lung findings more consistent with likely COPD exacerbation and infectious symptoms such as stuffiness is more indicative of infectious etiology. I considered obtaining a CTA of the chest with dimer however thought these test were not indicated given low risk Wells score. ALL IMAGES (IF OBTAINED) HAVE BEEN PERSONALLY REVIEWED AND INTERPRETED BY MYSELF. EKG with normal sinus rhythm rate of 73, normal axis, normal intervals, no STEMI Chest x-ray shows evidence of pulmonary venous congestion High-sensitivity troponin is negative, no evidence of myocardial ischemia BNP within normal limit suggestive no significant volume overload CBC with no leukocytosis, no anemia or thrombocytopenia BMP without significant electrolyte abnormalities, no signs of endorgan hypoperfusion or metabolic acidosis Patient attempted ambulate with severe tachypnea with respirate of 30. She is very uncomfortable. The synthesis of the patient's history, physical exam, labs images suggest likely volume overload potentially CHF exacerbation. Will give Lasix. Given signs of volume overload and significant tachypnea thought the patient to be admitted. Discussed with hospitalist The patient and/or family, caregivers express understanding. The patient and/orfamily, caregivers agrees with the plan. Shared decision making: I will have a discussion with the patient and or visitors regarding risk/benefits of further testing or admission. They will be made aware of of the risk/benefits inherent in this decision they will be given the opportunity to voice understanding. Total critical care time today provided was at least 0 minutes. This excludes separately billable procedures. Critical care time (if documented) is secondary to the patient having high probability of clinically significant/life threatening deterioration in the patient's condition which required my urgent intervention. Impression: 1. COPD exacerbation 2. Dyspnea 3. Pneumonia Dispo: Admit to floor This note was generated with Dragon dictation software. It may contain incorrectwords, spelling, and punctuation that were not noted in review of the chart prior to signing. Lab Data Labs: Laboratory Results - last 24 hr 11/10/24 14:50 WBC 4.5 RBC 4.85 Hgb 13.4 Hct 43.0 MCV 88.7 MCH 27.6 MCHC 31.2 L RDW Std Deviation 48.4 H RDW Coeff of Magno 15.0 H Plt Count 246 MPV 10.1 Immature Gran % (Auto) 0.200 Neut % (Auto) 58.0 Lymph % (Auto) 29.1 Hooker % (Auto) 9.0 Eos % (Auto) 3.3 Baso % (Auto) 0.4 Absolute Neuts (auto) 2.6 Absolute Lymphs (auto) 1.32 Nucleated RBC % 0 Sodium 141 Potassium 4.7 Chloride 103 Carbon Dioxide 24.3 Anion Gap 13 BUN 24 H Creatinine 1.21 H Estim Creat Clear Calc 43.64 L Est GFR (MDRD) Non-Af 48 L BUN/Creatinine Ratio 19.8 Glucose 81 Calcium 9.4 Troponin T High Sens 19 H NT pro BNP II 392 Radiography Diagnostic Testing: Clinical Impression(s) from Imaging Studies Chest X-Ray 11/10/24 15:45 IMPRESSION: Cardiomegaly with mild congestion. Reading Location: [facility] Discharge Plan Disposition Disposition: Acute Care Hospital [facility] Discharge Date/Time: 11/10/24 20:43 What to do if you have Problems For any increased pain, shortness of breath, bleeding, nausea or vomiting, chestpain, or any unexpected problems, contact your Primary Care Provider. Call [facility] ([phone]) or report to the closest Emergency Room. Call 911 if necessary. 11/10/242206 <Electronically signed by Bennie Dorsey DO> Cosigner Signature (if applicable): CC: No Primary Care Physician ~ Signed [facility] Work Phone: [phone] Discharge summary [facility] Medical Records Department [address] [place] [id number] Emergency Department Summary 11/10/24 MR#: [id number] Acct: [id number] Name: CLEMENTINA HOOD Rep #:[id number] : 1955 69 From: Bennie Aranda PCP: Care Physician,No Primary Status :ADM NADEGE Location: [place]3 [id number] HPI History of Present Illness Chief Complaint: Shortness of Breath PFSH PFSH Medical History Kidney disease Bipolar disorder Anxiety Depression Osteoporosis Smoker Chest pain Hypertension Migraines COPD (chronic obstructive pulmonary disease) Kidney disease Home Medications ?Medication ?Instructions ?Recorded ?Last Taken ?Type albuterol sulfate 2.5 mg/3 mL 2.5 mg (3 mL) inhalation Q4H PRN 09/12/24 11/10/24 Rx (0.083 %) solution for nebulization #25 vials furosemide 40 mg tablet (Lasix) 40 mg PO DAILY #7 tabs 09/12/24 Unknown Rx fluticasone fur. 100 mcg-umeclid 1 inh inhalation KYLEE Y 09/14/24 Unknown History 62.5 mcg-vilant 25 mcg inhalat.powder (Trelegy Ellipta) gabapentin 400 mg capsule 400 mg PO Q6H 09/14/2411/10 History lisinopril 20 mg tablet 20 mg PO DAILY 09/14/24 Unkn own History lorazepam 0.5 mg tablet 0.5 mg PO Q8H PRN PRN anxiet y 09/14/24 Unknown History metformin 500 mg tablet 500 mg PO DAILY 09/14/24 History quetiapine 50 mg tablet 50 mg PO QHS 09/14/24 History ropinirole 2 mg tablet 2 mg PO QHS 09/14/24 5 History trazodone 150 mg tablet 150 mg PO QHS 09/14/2411/09 History albuterol sulfate 90 mcg/actuation 2 puff inhalation Q 6H PRN 09/16/24 11/09/24 Rx aerosol inhaler shortness of breath or wheez ing #6.7 grams codeine 10 mg-guaifenesin 100 mg/5 10 ml PO Q6H PRN co ugh #237 mL 09/16/24 Unknown Rx mL oral liquid (Guaifenesin AC) albuterol sulfate 90 mcg/actuation 1 - 2 puff inhalati on Q4H PRN PRN 10/14/24 11/09/24 Rx aerosol inhaler (Ventolin HFA) Wheezing #1 ea ipratropium 0.5 mg-albuterol 3 mg 3 ml inhalation Q6H PRN shortness 10/14/24 11/10/24 Rx (2.5 mg base)/3 mL nebulization of breath #90 mL soln Allergy/AdvReac Type Severity Reaction Status Date / Time No Known Allergies Allergy Verified 11/10/24 15:07 Surgical History History of appendectomy Social History household members: family housing: house Smoking Status: Current every day smoker tobacco type: cigarettes alcohol intake: never substance use type: does not use EXAM Physical Exam Const Vital Signs: 11/10/24 15:03 11/10/24 15:10 11/10/24 15:35 Temperature 98.3 F Temperature Source Oral Pulse Rate 73 71 Respiratory Rate 26 H 18 Respiratory Effort Short of Breath Labored Respiratory Pattern Normal Normal Blood Pressure 152/130 H Blood Pressure Mean 137 Pulse Ox 99 Oxygen Delivery Method Nasal Cannula Nasal Cannula Oxygen Flow Rate (L/min) 3 3 11/10/24 15:44 11/10/24 15:45 11/10/24 16:00 Temperature Temperature Source Pulse Rate 72 72 Respiratory Rate 26 H 20 H Respiratory Effort Respiratory Pattern Blood Pressure 127/112 H Blood Pressure Mean 119 Pulse Ox 99 99 Oxygen Delivery Method Nasal Cannula Oxygen Flow Rate (L/min) 3 11/10/24 16:00 11/10/24 16:07 11/10/24 16:15 Temperature 97.8 F Temperature Source Oral Pulse Rate 84 71 Respiratory Rate 31 H 18 Respiratory Effort Respiratory Pattern Blood Pressure 119/52 L 163/69 H 163/69 H Blood Pressure Mean 67 100 94 Pulse Ox 98 97 Oxygen Delivery Method Nasal Cannula Oxygen Flow Rate (L/min) 3 11/10/24 16:18 11/10/24 16:30 11/10/24 16:45 Temperature Temperature Source Pulse Rate 81 77 71 Respiratory Rate 25 H 16 15 Respiratory Effort Respiratory Pattern Blood Pressure 163/69 H 138/59 H 127/67 H Blood Pressure Mean 100 81 87 Pulse Ox 99 97 98 Oxygen Delivery Method Oxygen Flow Rate (L/min) 11/10/24 17:00 11/10/24 17:00 11/10/24 17:15 Temperature 98 F Temperature Source Oral Pulse Rate 76 72 77 Respiratory Rate 24 H 15 15 Respiratory Effort Respiratory Pattern Blood Pressure 158/70 H 148/63 H 158/70 H Blood Pressure Mean 99 86 95 Pulse Ox 97 97 98 Oxygen Delivery Method Oxygen Flow Rate (L/min) 11/10/24 17:30 11/10/24 17:45 11/10/24 18:00 Temperature 98.5 F Temperature Source Oral Pulse Rate 81 77 78 Respiratory Rate 13 16 22 H Respiratory Effort Respiratory Pattern Blood Pressure 153/76 H 153/76 H Blood Pressure Mean 96 101 Pulse Ox 97 95 98 Oxygen Delivery Method Nasal Cannula Oxygen Flow Rate (L/min) 3 11/10/24 18:00 11/10/24 18:05 11/10/24 18:15 Temperature 98.5 F Temperature Source Pulse Rate 82 88 72 Respiratory Rate 19 H 22 H 16 Respiratory Effort Respiratory Pattern Blood Pressure 159/75 H 163/75 H Blood Pressure Mean 103 97 Pulse Ox 97 97 Oxygen Delivery Method Nasal Cannula Oxygen Flow Rate (L/min) 3 11/10/24 18:30 11/10/24 18:45 Temperature Temperature Source Pulse Rate 73 78 Respiratory Rate 21 H 28 H Respiratory Effort Respiratory Pattern Blood Pressure 163/76 H 150/99 H Blood Pressure Mean 98 112 Pulse Ox Oxygen Delivery Method Oxygen Flow Rate (L/min) MDM MDM MDM Narrative Medical decision making narrative: HISTORY OF PRESENT ILLNESS: 69-year-old female history of COPD, hypertension, type 2 diabetes, bipolar disorder s presents withconcern for shortness of breath. Patient states he is been sick for 1 week. She notes chest reviewed at baseline. She notes she had increased oxygen to 4 L. She notes a nonproductive cough and chest tightness aswell. She notes this may be a COPD exacerbation. She does endorse bilateral leg swelling. Notes chest pressure as well. The chest pressure is not exertional. Is not radiating. Is not ripping or tearing. She denies any history of connective tissue disorders or any family history of any aortic pathology. No sick contacts. No vomiting or diarrhea. The patient denies recent surgery in the last 4 weeks or immobilization in the last 3 days, denies previous diagnosis of DVT or PE, hemoptysis, unilateral leg swelling or malignancy with treatment the last 6 months or palliative. No estrogenuse noted. REVIEW OF SYSTEMS: Pertinent positives: Shortness of breath, cough chest tightness Pertinent negatives: Syncope, unilateral leg swelling PHYSICAL EXAM: Nursing triage notes reviewed, Vital signs reviewed Constitutional: please see mdm HENT: MMM Eyes: Pupils equal round and reactive to light, Extraocular muscles intact Neck: No stridor, no JVD, full neck ROM Lungs: Clear to auscultation, No wheezing or rales. No increased work of breathing, no conversational dyspnea, no accessory muscle use, no nasal flaring. No respiratory distress noted Heart: Regular rate and rhythm, No murmurs, No rubs and No gallops, 2+ distal pulses (radial, femoral, posterior tibial) in all extremities Abdomen: Soft, there is no tenderness, rigidity, rebound or guarding, no obviousperitoneal signs, no palpable pulsatile abdominal masses, no auscultated abdominal bruit : No CVAT Extremities: 1-2+ pitting edema bilateral lower extremities Neuro: No new focal neurological deficits, cranial nerves II through XII intact,5/5 strength in allpresent extremities. Intact sensation to light touch in all present extremities, 2+ reflexes bilateral patella tendons. Skin: No rash or lesions noted MEDICAL DECISION MAKING: Chief Complaint: Shortness of breath External records reviewed: Reviewed prior cardiovascular testing: Reviewed echocardiogram from 2024which showed an ejection fraction 75% Factors affecting care: As per [facility] Social determinants of health history mental health disorder History obtained from others: EMS Consults: internal medicine (Dr. Donahue) [facility] Narrative: The patient was initially hemodynamically stable saturating 98% on 3 L nasal cannula, she is tachypneic. Afebrile. Exam with tight coarse breath sounds with no obvious focal consolidation. I considered the following differential diagnosis: COPD exacerbation, COVID, RSV, flu, pneumonia, anemia, electrolyte disturbance, ACS I obtained a broad lab and imaging workup to further elucidate the etiology of the patient's complaints. I initially treated the patient with Tylenol with codeine for cough, DuoNeb breathing treatments and steroids to treat COPD empirically While I considered pulmonary embolism as a potential etiology the patient had a low risk Wells score, focal lung findings more consistent with likely COPD exacerbation and infectious symptoms such asstuffiness is more indicative of infectious etiology. I considered obtaining a CTA of the chest with dimer however thought these test were not indicated given low risk Wells score. ALL IMAGES (IF OBTAINED) HAVE BEEN PERSONALLY REVIEWED AND INTERPRETED BY MYSELF. EKG with normal sinus rhythm rate of 73, normal axis, normal intervals, no STEMI Chest x-ray shows evidence of pulmonary venous congestion High-sensitivity troponin is negative, no evidence of myocardial ischemia BNP within normal limit suggestive no significant volume overload CBC with no leukocytosis, no anemia or thrombocytopenia BMP without significant electrolyte abnormalities, no signs of endorgan hypoperfusion or metabolic acidosis Patient attempted ambulate with severe tachypnea with respirate of 30. She is very uncomfortable. The synthesis of the patient's history, physical exam, labs images suggest likely volume overload potentially CHF exacerbation. Will give Lasix. Given signs of volume overload and significant tachypnea thought the patient to be admitted. Discussed with hospitalist The patient and/or family, caregivers express understanding. The patient and/orfamily, caregivers agrees with the plan. Shared decision making: I will have a discussion with the patient and or visitors regarding risk/benefits of further testing or admission. They will be made aware of of the risk/benefits inherent in this decision they will be given the opportunity to voice understanding. Total critical care time today provided was at least 0 minutes. This excludes separately billable procedures. Critical care time (if documented) is secondary to the patient having high probability ofclinically significant/life threatening deterioration in the patient's condition which required my urgent intervention. Impression: 1. COPD exacerbation 2. Dyspnea 3. Pneumonia Dispo: Admit to floor This note was generated with VCV dictation software. It may contain incorrectwords, spelling, and punctuation that were not noted in review of the chart prior to signing. Lab Data Labs: Laboratory Results - last 24 hr 11/10/24 14:50 WBC 4.5 RBC 4.85 Hgb 13.4 Hct 43.0 MCV 88.7 MCH 27.6 MCHC 31.2 L RDW Std Deviation 48.4 H RDW Coeff of Magno 15.0 H Plt Count 246 MPV 10.1 Immature Gran % (Auto) 0.200 Neut % (Auto) 58.0 Lymph % (Auto) 29.1 Hooker % (Auto) 9.0 Eos % (Auto) 3.3 Baso % (Auto) 0.4 Absolute Neuts (auto) 2.6 Absolute Lymphs (auto) 1.32 Nucleated RBC % 0 Sodium 141 Potassium 4.7 Chloride 103 Carbon Dioxide 24.3 Anion Gap 13 BUN 24 H Creatinine 1.21 H Estim Creat Clear Calc 43.64 L Est GFR (MDRD) Non-Af 48 L BUN/Creatinine Ratio 19.8 Glucose 81 Calcium 9.4 Troponin T High Sens 19 H NT pro BNP II 392 Radiography Diagnostic Testing: Clinical Impression(s) from Imaging Studies Chest X-Ray 11/10/24 15:45 IMPRESSION: Cardiomegaly with mild congestion. Reading Location: [facility] Discharge Plan Disposition Disposition: Acute Care Hospital [facility] Discharge Date/Time: 11/10/24 20:43 What to do if you have Problems For any increased pain, shortness of breath, bleeding, nausea or vomiting, chestpain, or any unexpected problems, contact your Primary Care Provider. Call [facility] ([phone]) or report tothe closest Emergency Room. Call 911 if necessary. 11/10/242206 Cosigner Signature (if applicable): CC: No Primary Care Physician ~ Signed [facility]03-13-2025 History and physical note Author Gaurang Donahue [facility] Note Date/Time November 10, 2024 7:1 2pm [facility] Medical Records Department [address] [place] [address] H&P Exam - Hospitalist 11/10/24 1901 MR#: [id number] Acct: [id number] Name: CLEMENTINA HOOD Rep #:[id number] : 1955 69 From: Gaurang Donahue MD PCP: Care Physician,No Primary Status :REG ER Location: ED HPI - General General Date of Admission: 11/10/24 Date of Service: 11/10/24 Chief Complaint: Worsening shortness of breath HPI Narrative CLEMENTINA HOOD, is a 69 F history of tobacco use, COPD, who presents to the ED with concerns regarding ongoing shortness of breath, generalized fatigue for thelast 3 days. There is cough without expectoration or phlegm production. There is no fever. She continues to smoke about half pack a day and is trying to quiteven further. She notes that she is getting tired with activities of daily living, does not endorse any orthopnea. PND is difficult to assess as she sleeps on a recliner because of significant lower back pain and is able to do so even now. No positional changes and no shortness of breath. While presentation in the ED her blood pressure was elevated, and her oxygen requirement was at her baseline 2 L/min. While she walked with the nurse she had significant tachypnea without changes and a saturation, given the concerns of acute on chronic respiratory failure she was being admitted to observation for further evaluation and management. WBC 4.5, hemoglobin 13.4, platelet count 246, sodium 141, potassium 4.7, BUN 24,creatinine 1.2 high-sensitivity troponin 19 NT proBNP 392 PFSH Medical History Kidney disease Bipolar disorder Anxiety Depression Osteoporosis Smoker Chest pain Hypertension Migraines COPD (chronic obstructive pulmonary disease) Kidney disease Home Medications ?Medication ?Instructions ?Recorded ?Last Taken ?Type albuterol sulfate 2.5 mg/3 mL 2.5 mg (3 mL) inhalation Q4H PRN 09/12/24 Unknown Rx (0.083 %) solution for nebulization #25 vials furosemide 40 mg tablet (Lasix) 40 mg PO DAILY #7 tabs 09/12/24 Unknown Rx fluticasone fur. 100 mcg-umeclid 1 inh inhalation KYLEE Y 09/14/24 Unknown History 62.5 mcg-vilant 25 mcg inhalat.powder (Trelegy Ellipta) gabapentin 400 mg capsule 400 mg PO Q6H 09/14/24 Unkno wn History lisinopril 20 mg tablet 20 mg PO DAILY 09/14/24 Unkn own History lorazepam 0.5 mg tablet 0.5 mg PO Q8H PRN PRN anxiet y 09/14/24 Unknown History metformin 500 mg tablet 500 mg PO DAILY 09/14/24 Unk nown History quetiapine 50 mg tablet 50 mg PO QHS 09/14/24 Unknow n History ropinirole 2 mg tablet 2 mg PO QHS 09/14/24 Unknown History trazodone 150 mg tablet 150 mg PO QHS 09/14/24 Unkno wn History albuterol sulfate 90 mcg/actuation 2 puff inhalation Q 6H PRN 09/16/24 Unknown Rx aerosol inhaler shortness of breath or wheez ing #6.7 grams codeine 10 mg-guaifenesin 100 mg/5 10 ml PO Q6H PRN co ugh #237 mL 09/16/24 Unknown Rx mL oral liquid (Guaifenesin AC) albuterol sulfate 90 mcg/actuation 1 - 2 puff inhalati on Q4H PRN PRN 10/14/24 Unknown Rx aerosol inhaler (Ventolin HFA) Wheezing #1 ea ipratropium 0.5 mg-albuterol 3 mg 3 ml inhalation Q6H PRN shortness 10/14/24 Unknown Rx (2.5 mg base)/3 mL nebulization of breath #90 mL soln Allergy/AdvReac Type Severity Reaction Status Date / Time No Known Allergies Allergy Verified 11/10/24 15:07 no significant family history Surgical History History of appendectomy no surgical history Social History household members: family housing: house Smoking Status: Current every day smoker tobacco type: cigarettes alcohol intake: never substance use type: does not use Vital Signs Vital Signs Vital Signs: 11/10/24 15:03 11/10/24 15:10 11/10/24 15:35 Temperature 98.3 F Temperature Source Oral Pulse Rate 73 71 Respiratory Rate 26 H 18 Respiratory Effort Short of Breath Labored Respiratory Pattern Normal Normal Blood Pressure 152/130 H Blood Pressure Mean 137 Pulse Ox 99 Oxygen Delivery Method Nasal Cannula Nasal Cannula Oxygen Flow Rate (L/min) 3 3 11/10/24 15:44 11/10/24 15:45 11/10/24 16:00 Temperature Temperature Source Pulse Rate 72 72 Respiratory Rate 26 H 20 H Respiratory Effort Respiratory Pattern Blood Pressure 127/112 H Blood Pressure Mean 119 Pulse Ox 99 99 Oxygen Delivery Method Nasal Cannula Oxygen Flow Rate (L/min) 3 11/10/24 16:00 11/10/24 16:07 11/10/24 16:15 Temperature 97.8 F Temperature Source Oral Pulse Rate 84 71 Respiratory Rate 31 H 18 Respiratory Effort Respiratory Pattern Blood Pressure 119/52 L 163/69 H 163/69 H Blood Pressure Mean 67 100 94 Pulse Ox 98 97 Oxygen Delivery Method Nasal Cannula Oxygen Flow Rate (L/min) 3 11/10/24 16:18 11/10/24 16:30 11/10/24 16:45 Temperature Temperature Source Pulse Rate 81 77 71 Respiratory Rate 25 H 16 15 Respiratory Effort Respiratory Pattern Blood Pressure 163/69 H 138/59 H 127/67 H Blood Pressure Mean 100 81 87 Pulse Ox 99 97 98 Oxygen Delivery Method Oxygen Flow Rate (L/min) 11/10/24 17:00 11/10/24 17:00 11/10/24 17:15 Temperature 98 F Temperature Source Oral Pulse Rate 76 72 77 Respiratory Rate 24 H 15 15 Respiratory Effort Respiratory Pattern Blood Pressure 158/70 H 148/63 H 158/70 H Blood Pressure Mean 99 86 95 Pulse Ox 97 97 98 Oxygen Delivery Method Oxygen Flow Rate (L/min) 11/10/24 17:30 11/10/24 17:45 11/10/24 18:00 Temperature 98.5 F Temperature Source Oral Pulse Rate 81 77 78 Respiratory Rate 13 16 22 H Respiratory Effort Respiratory Pattern Blood Pressure 153/76 H 153/76 H Blood Pressure Mean 96 101 Pulse Ox 97 95 98 Oxygen Delivery Method Nasal Cannula Oxygen Flow Rate (L/min) 3 11/10/24 18:00 11/10/24 18:05 Temperature 98.5 F Temperature Source Pulse Rate 82 88 Respiratory Rate 19 H 22 H Respiratory Effort Respiratory Pattern Blood Pressure 159/75 H Blood Pressure Mean 103 Pulse Ox 97 Oxygen Delivery Method Nasal Cannula Oxygen Flow Rate (L/min) 3 Weight Weight: 161 lb 2.526 oz Body Mass Index (BMI) 25.9 Physical Exam Const alert and oriented x3 Constitutional Narrative: Tired Orientation / Consciousness: lethargic HEENT normocephalic Eyes PERRL and EOMs intact bilaterally Neck no lymphadenopathy Resp Resp Narrative: Left infrascapular Rales present GI normal to inspection, nondistended, normoactive bowel sounds Auscultation: hyperactive bowel sounds Extremity Extremity Narrative: Bilateral pitting edema, some tenderness over her left ankle Neuro oriented x3 Sensorium / Orientation: awake, alert and oriented to person Psych affect normal Results Medical Records Data Attestation: I reviewed the patient's medical records Lab / Micro Data Attestation: I reviewed the patient's lab results. 11/10/24 14:50 11/10/24 14:50 Labs: Laboratory Results - last 24 hr 11/10/24 14:50: WBC 4.5, RBC 4.85, Hgb 13.4, Hct 43.0, MCV 88.7, MCH 27.6, MCHC 31.2 L, RDW Std Deviation 48.4 H, RDW Coeff of Magno 15.0 H, Plt Count 246, MPV 10.1, Immature Gran % (Auto) 0.200, Neut % (Auto) 58.0, Lymph % (Auto) 29.1, Hooker % (Auto) 9.0, Eos % (Auto) 3.3, Baso % (Auto) 0.4, Absolute Neuts (auto) 2.6, Absolute Lymphs (auto) 1.32, Nucleated RBC % 0, Sodium 141, Potassium 4.7, Chloride 103, Carbon Dioxide 24.3, Anion Gap 13, BUN 24 H, Creatinine 1.21 H, Estim Creat Clear Calc 43.64 L, Est GFR (MDRD) Non-Af 48 L, BUN/Creatinine Ratio 19.8, Glucose 81, Calcium 9.4, Troponin T High Sens 19 H, NT pro BNP II 392 Micro: Microbiology 11/10/24 15:45 Mucosa - Nose SARS-CoV-2, Influenza & RSV (PCR) - Final Imaging Radiology Impression Chest X-Ray 11/10/24 15:45 IMPRESSION: Cardiomegaly with mild congestion. Reading Location: [facility] Assessment & Plan Assessment/Plan (1) Pneumonia: PLAN: Plan 69-year-old female with history of and will start management on those lines. And is noted to have localized Rales on examination. NT proBNP is normal, and oxygen requirement is at her baseline. I suspect community-acquired pneumonia versus viral pneumonia. # Acute on chronic respiratory failure # ?Community-acquired pneumonia -Started on azithromycin plus ceftriaxone -Continue oxygen monitor via nasal cannula to target 92 2-94% -Bronchopulmonary hygiene -[facility] -If there is improvement can switch to oral antibiotics -Follow-up on the next troponin levels as the first 1 was mildly elevated -Continue home albuterol/ipratropium bromide -Follow-up on urine Legionella, nasal swabs for viral PCR #Congestive heart failure -Concerns regarding heart failure but clinically and lab findings are not consistent -Echocardiogram -Continue IV Lasix 40 mg daily -She was previously on Lasix 40 mg oral at home, will hold for now #Hypertension -Does not take any home medications -Restart lisinopril 20 mg as previously prescribed -Monitor during hospitalization #Nicotine use -Nicotine patches if needed #DVT prophylaxis -Lovenox subcu Duration of admission: Likely less than 2 days 11/10/241911 <Electronically signed by Gaurang Donahue MD> Cosigner Signature (if applicable): CC: Dr. Gaurang Donahue MD; No Primary Care Physician~ Signed [facility] Work Phone: [phone]) 384-867303-13-2025 History and physical note [facility] Medical Records Department [address] [place] [address] H&P Exam - Hospitalist 11/10/24 190 MR#: [id number] Acct: [id number] Name: CLEMENTINA HOOD Rep #:[id number] : 1955 69 From: Gaurang Donahue MD PCP: Care Physician,No Primary Status :REG ER Location: ED HPI - General General Date of Admission: 11/10/24 Date of Service: 11/10/24 Chief Complaint: Worsening shortness of breath HPI Narrative CLEMENTINA HOOD, is a 69 F history of tobacco use, COPD, who presents to the ED with concerns regarding ongoing shortness of breath, generalized fatigue for thelast 3 days. There is cough without expectoration or phlegm production. There is no fever. She continues to smoke about half pack a day andis trying to quiteven further. She notes that she is getting tired with activities of daily living, does not endorse any orthopnea. PND is difficult to assess as she sleeps on a recliner because of significant lower back pain and is able to do so even now. No positional changes and no shortness of breath. While presentation in the ED her blood pressure was elevated, and her oxygen requirement was at herbaseline 2 L/min. While she walked with the nurse she had significant tachypnea without changes kwan saturation, given the concerns of acute on chronic respiratory failure she was being admitted to observation for further evaluation and management. WBC 4.5, hemoglobin 13.4, platelet count 246, sodium 141, potassium 4.7, BUN 24,creatinine 1.2 high-sensitivity troponin 19 NT proBNP 392 PFSH Medical History Kidney disease Bipolar disorder Anxiety Depression Osteoporosis Smoker Chest pain Hypertension Migraines COPD (chronic obstructive pulmonary disease) Kidney disease Home Medications ?Medication ?Instructions ?Recorded ?Last Taken ?Type albuterol sulfate 2.5 mg/3 mL 2.5 mg (3 mL) inhalation Q4H PRN 09/12/24 Unknown Rx (0.083 %) solution for nebulization #25 vials furosemide 40 mg tablet (Lasix) 40 mg PO DAILY #7 tabs 09/12/24 Unknown Rx fluticasone fur. 100 mcg-umeclid 1 inh inhalation KYLEE Y 09/14/24 Unknown History 62.5 mcg-vilant 25 mcg inhalat.powder (Trelegy Ellipta) gabapentin 400 mg capsule 400 mg PO Q6H 09/14/24 Unkno wn History lisinopril 20 mg tablet 20 mg PO DAILY 09/14/24 Unkn own History lorazepam 0.5 mg tablet 0.5 mg PO Q8H PRN PRN anxiet y 09/14/24 Unknown History metformin 500 mg tablet 500 mg PO DAILY 09/14/24 Unk nown History quetiapine 50 mg tablet 50 mg PO QHS 09/14/24 Unknow n History ropinirole 2 mg tablet 2 mg PO QHS 09/14/24 Unknown History trazodone 150 mg tablet 150 mg PO QHS 09/14/24 Unkno wn History albuterol sulfate 90 mcg/actuation 2 puff inhalation Q 6H PRN 09/16/24 Unknown Rx aerosol inhaler shortness of breath or wheez ing #6.7 grams codeine 10 mg-guaifenesin 100 mg/5 10 ml PO Q6H PRN co ugh #237 mL 09/16/24 Unknown Rx mL oral liquid (Guaifenesin AC) albuterol sulfate 90 mcg/actuation 1 - 2 puff inhalati on Q4H PRN PRN 10/14/24 Unknown Rx aerosol inhaler (Ventolin HFA) Wheezing #1 ea ipratropium 0.5 mg-albuterol 3 mg 3 ml inhalation Q6H PRN shortness 10/14/24 Unknown Rx (2.5 mg base)/3 mL nebulization of breath #90 mL soln Allergy/AdvReac Type Severity Reaction Status Date / Time No Known Allergies Allergy Verified 11/10/24 15:07 no significant family history Surgical History History of appendectomy no surgical history Social History household members: family housing: house Smoking Status: Current every day smoker tobacco type: cigarettes alcohol intake: never substance use type: does not use Vital Signs Vital Signs Vital Signs: 11/10/24 15:03 11/10/24 15:10 11/10/24 15:35 Temperature 98.3 F Temperature Source Oral Pulse Rate 73 71 Respiratory Rate 26 H 18 Respiratory Effort Short of Breath Labored Respiratory Pattern Normal Normal Blood Pressure 152/130 H Blood Pressure Mean 137 Pulse Ox 99 Oxygen Delivery Method Nasal Cannula Nasal Cannula Oxygen Flow Rate (L/min) 3 3 11/10/24 15:44 11/10/24 15:45 11/10/24 16:00 Temperature Temperature Source Pulse Rate 72 72 Respiratory Rate 26 H 20 H Respiratory Effort Respiratory Pattern Blood Pressure 127/112 H Blood Pressure Mean 119 Pulse Ox 99 99 Oxygen Delivery Method Nasal Cannula Oxygen Flow Rate (L/min) 3 11/10/24 16:00 11/10/24 16:07 11/10/24 16:15 Temperature 97.8 F Temperature Source Oral Pulse Rate 84 71 Respiratory Rate 31 H 18 Respiratory Effort Respiratory Pattern Blood Pressure 119/52 L 163/69 H 163/69 H Blood Pressure Mean 67 100 94 Pulse Ox 98 97 Oxygen Delivery Method Nasal Cannula Oxygen Flow Rate (L/min) 3 11/10/24 16:18 11/10/24 16:30 11/10/24 16:45 Temperature Temperature Source Pulse Rate 81 77 71 Respiratory Rate 25 H 16 15 Respiratory Effort Respiratory Pattern Blood Pressure 163/69 H 138/59 H 127/67 H Blood Pressure Mean 100 81 87 Pulse Ox 99 97 98 Oxygen Delivery Method Oxygen Flow Rate (L/min) 11/10/24 17:00 11/10/24 17:00 11/10/24 17:15 Temperature 98 F Temperature Source Oral Pulse Rate 76 72 77 Respiratory Rate 24 H 15 15 Respiratory Effort Respiratory Pattern Blood Pressure 158/70 H 148/63 H 158/70 H Blood Pressure Mean 99 86 95 Pulse Ox 97 97 98 Oxygen Delivery Method Oxygen Flow Rate (L/min) 11/10/24 17:30 11/10/24 17:45 11/10/24 18:00 Temperature 98.5 F Temperature Source Oral Pulse Rate 81 77 78 Respiratory Rate 13 16 22 H Respiratory Effort Respiratory Pattern Blood Pressure 153/76 H 153/76 H Blood Pressure Mean 96 101 Pulse Ox 97 95 98 Oxygen Delivery Method Nasal Cannula Oxygen Flow Rate (L/min) 3 11/10/24 18:00 11/10/24 18:05 Temperature 98.5 F Temperature Source Pulse Rate 82 88 Respiratory Rate 19 H 22 H Respiratory Effort Respiratory Pattern Blood Pressure 159/75 H Blood Pressure Mean 103 Pulse Ox 97 Oxygen Delivery Method Nasal Cannula Oxygen Flow Rate (L/min) 3 Weight Weight: 161 lb 2.526 oz Body Mass Index (BMI) 25.9 Physical Exam Const alert and oriented x3 Constitutional Narrative: Tired Orientation / Consciousness: lethargic HEENT normocephalic Eyes PERRL and EOMs intact bilaterally Neck no lymphadenopathy Resp Resp Narrative: Left infrascapular Rales present GI normal to inspection, nondistended, normoactive bowel sounds Auscultation: hyperactive bowel sounds Extremity Extremity Narrative: Bilateral pitting edema, some tenderness over her left ankle Neuro oriented x3 Sensorium / Orientation: awake, alert and oriented to person Psych affect normal Results Medical Records Data Attestation: I reviewed the patient's medical records Lab / Micro Data Attestation: I reviewed the patient's lab results. 11/10/24 14:50 11/10/24 14:50 Labs: Laboratory Results - last 24 hr 11/10/24 14:50: WBC 4.5, RBC 4.85, Hgb 13.4, Hct 43.0, MCV 88.7, MCH 27.6, MCHC 31.2 L, RDW Std Deviation 48.4 H, RDW Coeff of Magno 15.0 H, Plt Count 246, MPV 10.1, Immature Gran % (Auto) 0.200, Neut % (Auto) 58.0, Lymph % (Auto) 29.1, Hooker % (Auto) 9.0, Eos % (Auto) 3.3, Baso % (Auto) 0.4, AbsoluteNeuts (auto) 2.6, Absolute Lymphs (auto) 1.32, Nucleated RBC % 0, Sodium 141, Potassium 4.7, Chloride 103, Carbon Dioxide 24.3, Anion Gap 13, BUN 24 H, Creatinine 1.21 H, Estim Creat Clear Calc 43.64L, Est GFR (MDRD) Non-Af 48 L, BUN/Creatinine Ratio 19.8, Glucose 81, Calcium 9.4, Troponin T High Sens 19 H, NT pro BNP II 392 Micro: Microbiology 11/10/24 15:45 Mucosa - Nose SARS-CoV-2, Influenza & RSV (PCR) - Final Imaging Radiology Impression Chest X-Ray 11/10/24 15:45 IMPRESSION: Cardiomegaly with mild congestion. Reading [facility] Assessment & Plan Assessment/Plan (1) Pneumonia: PLAN: Plan 69-year-old female with history of and will start management on those lines. And is noted to have localized Rales on examination. NT proBNP is normal, and oxygen requirement is at her baseline. I suspect community-acquired pneumonia versus viral pneumonia. # Acute on chronic respiratory failure # ?Community-acquired pneumonia -Started on azithromycin plus ceftriaxone -Continue oxygen monitor via nasal cannula to target 92 2-94% -Bronchopulmonary hygiene -Admit to [facility] -If there is improvement can switch to oral antibiotics -Follow-up on the next troponin levels as the first 1 was mildly elevated -Continue home albuterol/ipratropium bromide -Follow-up on urine Legionella, nasal swabs for viral PCR #Congestive heart failure -Concerns regarding heart failure but clinically and lab findings are not consistent -Echocardiogram -Continue IV Lasix 40 mg daily -She was previously on Lasix 40 mg oral at home, will hold for now #Hypertension -Does not take any home medications -Restart lisinopril 20 mg as previously prescribed -Monitor during hospitalization #Nicotine use -Nicotine patches if needed #DVT prophylaxis -Lovenox subcu Duration of admission: Likely less than 2 days 11/10/241911 Cosigner Signature (if applicable): CC: Dr. Gaurang Donahue MD; No Primary Care Physician~ Signed [facility]03-13-2025 Radiology Diagnostic study note [facility] Imaging Services [address] [place] [address] Chest 1 View (Portable) MR#: [id number] Acct: [id number] Name: CLEMENTINA HOOD Rep #: [id number] : 1955 F 69 From: Leslie Gilbert MD PCP: Care Physician,No Primary Status: REG ER Study:Chest 1 View (Portable) Date of Exam: 11/10/24 Exam# [id number] Ordering Dr: Gabrielle Dorsey DO EXAM: XR Chest, 1 View CLINICAL INDICATION: SHORTNESS OF BREATH TECHNIQUE: Frontal view of the chest. COMPARISON: No relevant prior studies available. FINDINGS: LUNGS AND PLEURAL SPACES: See below. HEART: Cardiomegaly with mild congestion. MEDIASTINUM: Unremarkable. Normal mediastinal contour. BONES/JOINTS: Unremarkable. No acute fracture. RAD/Chest 1 View (Portable) IMPRESSION: Cardiomegaly with mild congestion. Reading Location: [facility] CC: Dr. Bennie Dorsey DO; No Primary Care Physician ~ Electric Distribution Checker: Signed [facility]01-17-2025 [facility] Medical Records Department [address] [place] [address] Discharge Summary 09/16/24 1420 MR#: [id number] Acct: [id number] Name: CLEMENTINA HOOD Rep #: [id number] : 1955 69 From: Karthik Rodrigues DO PCP: Care Physician,No Primary Status:DIS IN Location: [facility] [id number] Providers Date of Admission: 09/14/24 Date of Discharge: 09/16/24 Primary Care Physician: No Primary Care Phys Reason For Visit: AECOPD 2/2 RSV Diagnosis Discharge Diagnosis (1) Respiratory syncytial virus (RSV): Status: Acute Code(s): B33.8 - Other specified viral diseases Plan 1. Respiratory syncytial virus infection-patient will remain on IV corticosteroids and aerosol treatments #2 hypoxia secondary to #1-pulse ox will be monitored oxygen will be weaned if able #3 Exacerbation of chronic obstructive pulmonary disease-due to RSV infection- complicates care, management, recovery, and prognosis #4 essential hypertension-patient is on lisinopril Total clinical time spent by myself addressing the patient's medical issues, reviewing all of her data, and collaborating with patient's care team: 35 minutes Medications at Discharge Home Medications albuterol sulfate 2.5 mg/3 mL (0.083 %) solution for nebulization 2.5 mg (3 mL) inhalation Q4H PRN #25 vials 09/12/24 furosemide 40 mg tablet (Lasix) 40 mg PO DAILY #7 tabs 09/12/24 fluticasone fur. 100 mcg-umeclid 62.5 mcg-vilant 25 mcg inhalat.powder (Trelegy Ellipta) 1 inh inhalation DAILY 09/14/24 gabapentin 400 mg capsule 400 mg PO Q6H 09/14/24 lisinopril 20 mg tablet 20 mg PO DAILY 09/14/24 lorazepam 0.5 mg tablet 0.5 mg PO Q8H PRN PRN anxiety 09/14/24 metformin 500 mg tablet 500 mg PO DAILY 09/14/24 quetiapine 50 mg tablet 50 mg PO QHS 09/14/24 ropinirole 2 mg tablet 2 mg PO QHS 09/14/24 trazodone 150 mg tablet 150 mg PO QHS 09/14/24 albuterol sulfate 90 mcg/actuation aerosol inhaler 2 puff inhalation Q6H PRN shortness of breath or wheezing #6.7 grams 09/16/24 codeine 10 mg-guaifenesin 100 mg/5 mL oral liquid (Guaifenesin AC) 10 ml PO Q6H PRN cough #237 mL 09/16/24 nicotine 14 mg/24 hr daily transdermal patch 14 mg transdermal DAILY #30 ea 09/16/24 prednisone 20 mg tablet 20 mg PO DAILY #10 tabs 09/16/24 tramadol 100 mg tablet 100 mg PO Q6H PRN pain #28 tabs 09/16/24 Hospital Course Operations None Procedures None Summary of Care Provided Minutes Spent on Discharge: 31 Hospital Course: This 69-year-old white female was seen in the emergency room at [facility] with complaints of shortness of breath. Workup in the emergency room showed the patient was positive for RSV PCR, there was no obvious infiltrates on the patient's chest x-ray. Patient was admitted to [place] [address] and placed on aerosol treatments and given IV corticosteroids. Patient required home oxygen set up at the time of discharge. Patient did have a history of COPD. On 09/16/2024, patient was seen and examined: On examination she appeared in good health and spirits, she does not appear to be in any distress. Vital signs as documented. Skin warm and dry and without overt rashes. Neck without JVD, thyroid appears normal, trachea is midline, neck is supple. Lungs clear, normal air movement was noted. Heart exam notable for regular rhythm, normal sounds and absence of murmurs, rubs or gallops. Abdomen unremarkable and without evidence of organomegaly, masses, or abdominal aortic enlargement, bowel sounds are present in all 4 quadrants, no abdominal tenderness was noted. Extremities nonedematous, no cyanosis was noted, no clubbing was noted. Neuro: Cranial nerves II through XII are grossly intact, no focal motor deficits were noted, sensation to light touch and pinprick is intact, motor exam 5/5 throughout. Psych: Patient is alert and oriented x3, she does not appear anxious or depressed, she does not appear agitated. Patient was discharged home in stable condition on 09/16/2024 Medical Records Data Homelessness:: Sheltered Weight / BMI Weight Weight: 68.5 kg Body Mass Index (BMI) 24.3 ABG / Lab / Microbiology Data 09/15/24 06:18 09/15/24 06:18 Laboratory: Laboratory Results - last 24 hr 09/15/24 16:02: POC Glucose 137 H 09/15/24 21:37: POC Glucose 142 H 09/16/24 06:17: POC Glucose 159 H 09/16/24 11:17: POC Glucose 141 H Microbiology: Microbiology 09/14/24 14:20 Mucosa - Nose SARS-CoV-2, Influenza RSV (PCR) - Final RSV Radiography Diagnostic Testing: Radiology Impression Venous Doppler Study 09/14/24 20:38 Interpretation Summary Deep veins of the lower extremities are bilaterally patent and compressible segmentally. There is no evidence of deep vein thrombosis on either side. Valvular competence appears intact within the proximal deep venous systems bilaterally. The great saphenous ve (more content not included)...[facility]01-15-2025 Evaluation note* Diagnosis Onset Date Resolution Status Admit Date COPD with acute exacerbation inactiv e September 14, 2024 4:43pm Edema, peripheral inactive September 14, 2024 4:43pm Hypoxia inactive September 14, 2024 4:43pm Leukocytosis inactive August 4:43pm Respiratory syncytial virus (RSV) inactive September 14 4:43pm Pneumonia acute November 10 6:56pm [facility] Work Phone: [phone]) 767-932001-15-2025 Evaluation note* Diagnosis Onset Date Resolution Status Admit Date COPD with acute exacerbation inactiv e September 14, 2024 4:43pm Edema, peripheral inactive September 14, 2024 4:43pm Hypoxia inactive September 14, 2024 4:43pm Leukocytosis inactive August 4:43pm Respiratory syncytial virus (RSV) inactive September 14 4:43pm Pneumonia acute November 10 6:56pm COPD exacerbation inactive October 292024 6:56pm [facility] Work Phone: Discharge summary Author Chana Staley [facility] Note Date/Time November 12, 2024 3:1 3pm [facility] Medical Records Department [address] [place] [address] Instructions for Home/Discharge Instructions 11/12/24 1341 MR#: [id number] Acct: [id number] Name: CLEMENTINA HOOD Rep #:[id number] : 1955 69 From: Chana Staley MD PCP: Care Physician,No Primary Status :ADM NADEGE Discharge Instructions Diet Discharge Diet: - DC O2, CPAP, BIPAP needs Home O2 Discharge instructions: Yes Type of respiratory needs?: Oxygen Oxygen frequency: With Ambulation Oxygen liters per minute during Ambulation: 2 Follow Up Care Test Results: Test results from this visit will be discussed in further detail at your follow- up appointment, if applicable. Discharge Plan Admission Admit Date/Time: 11/10/24 18:56 Primary Reason for Your Visit: Shortness of breath Attending Provider: Chana Staley Primary Care Provider: Care Physician,No Primary Consulting Providers: Gaurang Donahue Instructions Patient Instructions: Asthma and COPD, COPD Quit Smoking Additional Instructions / Restrictions: DISCHARGE INSTRUCTIONS PLEASE READ *Please take this with you to your next doctors appointment* -You will need 1 more dose of azithromycin which you will take this evening and will need to take 1 dose of Augmentin tonight and then twice daily for 2 more days -You will be discharged on a prednisone taper: -60 mg daily x3 days -50mg daily x3 days -40mg daily x3 days -30mg daily x3 days -20mg daily x3 days -10mg daily x3 days -It is advised that you use your nebulizers at home 3 times daily until you are able to renew your home inhalers -Please continue to use your 2 L of oxygen with ambulation -You would benefit from establishing with pulmonology on discharge, contact information below, advised to contact the office to schedule an establish care appointment -You have an appointment to schedule with a new primary care physician 02/14/2025, information below -You indicated that you ran out of refills on your Ativan, as we discussed only several days of this can be sent in as it is a controlled substance, these were sent to your pharmacy along with your antibiotics and steroids -It is strongly advised that he refrain from smoking as this will worsen your breathing over time -Please call your primary care provider's office upon discharge to schedule a hospital follow up within 1 week. -For any concerning signs or symptoms please call 911 or proceed to the nearest emergency department Discharge Orders/Prescriptions Prescriptions: New azithromycin 500 mg tablet 500 mg PO QHS 1 Days Qty: 1 0RF amoxicillin-pot clavulanate 875-125 mg tablet 1 tab PO BID 2 Days Qty: 5 0RF prednisone 20 mg Tablet See Taper PO BREAKFAST Qty: 32 0RF Taper: Prednisone Taper 60 mg WITH BREAKFAST for 3 Days and 0 Hour 50 mg WITH BREAKFAST for 3 Days and 0 Hour 40 mg WITH BREAKFAST for 3 Days and 0 Hour 30 mg WITH BREAKFAST for 3 Days and 0 Hour 20 mg WITH BREAKFAST for 3 Days and 0 Hour 10 mg WITH BREAKFAST for 3 Days and 0 Hour Continued albuterol sulfate 2.5 mg /3 mL (0.083 %) solution for nebulization 2.5 mg inhalation Q4H PRN Qty: 25 0RF Rx Instructions: Use q4 hours and PRN for wheezing albuterol sulfate [Ventolin HFA] 90 mcg/actuation HFA aerosol inhaler 1 - 2 puff inhalation Q4H PRN PRN (Reason: Wheezing) Qty: 1 0RF ipratropium-albuterol 0.5 mg-3 mg(2.5 mg base)/3 mL solution for nebulization 3 ml inhalation Q6H PRN (Reason: shortness of breath) Qty: 90 0RF lisinopril 20 mg tablet 20 mg PO DAILY 30 Days Qty: 30 0RF lorazepam 0.5 mg tablet 0.5 mg PO Q8H PRN PRN (Reason: anxiety) 3 Days Qty: 9 0RF Trelegy Ellipta 100-62.5-25 mcg blister with device 1 inh inhalation DAILY gabapentin 400 mg capsule 400 mg PO Q6H metformin 500 mg tablet 500 mg PO DAILY ropinirole 2 mg tablet 2 mg PO QHS trazodone 150 mg tablet 150 mg PO QHS quetiapine 50 mg tablet 50 mg PO QHS albuterol sulfate 90 mcg/actuation HFA aerosol inhaler 2 puff inhalation Q6H PRN (Reason: shortness of breath or wheezing) Qty: 6.7 0RF codeine-guaifenesin [Guaifenesin AC] 10-100 mg/5 mL liquid 10 ml PO Q6H PRN (Reason: cough) Qty: 237 1RF Rx Instructions: one or two teaspoons every six hours as needed for cough Discontinued furosemide [Lasix] 40 mg tablet 40 mg PO DAILY Qty: 7 0RF Referrals / Follow Up: Iris Villarreal MD [Med Staff - Active Staff] - 02/14/25 2:00 pm (The hospital van will pick you up at your home at 1:30pm for your appointment. ) Doug Swift, [Med Staff - Active Staff] - Care Physician,No Primary [Primary Care Provider] - Disposition Disposition (needs filled in before D/C Order can be placed): Home, Self Care 11/12/24 1341<Electronically signed by Chana Staley MD>Chana Staley MD CC: Dr. Gaurang Donahue MD; No Primary Care Physician ~ Signed [facility] Work Phone: Evaluation noteNo assessment information available [facility] Work Phone: History and physical note Author Gaurang Donahue [facility] Note Date/Time November 10, 2024 7:1 2pm [facility] Medical Records Department [address] [place] [address] H&P Exam - Hospitalist 11/10/24 1901 MR#: [id number] Acct: [id number] Name: CLEMENTINA HOOD Rep #:[id number] : [id number] 69 From: Gaurang Donahue MD PCP: Care Physician,No Primary Status :REG ER Location: ED HPI - General General Date of Admission: 11/10/24 Date of Service: 11/10/24 Chief Complaint: Worsening shortness of breath HPI Narrative CLEMENTINA HOOD, is a 69 F history of tobacco use, COPD, who presents to the ED with concerns regarding ongoing shortness of breath, generalized fatigue for thelast 3 days. There is cough without expectoration or phlegm production. There is no fever. She continues to smoke about half pack a day and is trying to quiteven further. She notes that she is getting tired with activities of daily living, does not endorse any orthopnea. PND is difficult to assess as she sleeps on a recliner because of significant lower back pain and is able to do so even now. No positional changes and no shortness of breath. While presentation in the ED her blood pressure was elevated, and her oxygen requirement was at her baseline 2 L/min. While she walked with the nurse she had significant tachypnea without changes and a saturation, given the concerns of acute on chronic respiratory failure she was being admitted to observation for further evaluation and management. WBC 4.5, hemoglobin 13.4, platelet count 246, sodium 141, potassium 4.7, BUN 24,creatinine 1.2 high-sensitivity troponin 19 NT proBNP 392 PFSH Medical History Kidney disease Bipolar disorder Anxiety Depression Osteoporosis Smoker Chest pain Hypertension Migraines COPD (chronic obstructive pulmonary disease) Kidney disease Home Medications ?Medication ?Instructions ?Recorded ?Last Taken ?Type albuterol sulfate 2.5 mg/3 mL 2.5 mg (3 mL) inhalation Q4H PRN 09/12/24 Unknown Rx (0.083 %) solution for nebulization #25 vials furosemide 40 mg tablet (Lasix) 40 mg PO DAILY #7 tabs 09/12/24 Unknown Rx fluticasone fur. 100 mcg-umeclid 1 inh inhalation KYLEE Y 09/14/24 Unknown History 62.5 mcg-vilant 25 mcg inhalat.powder (Trelegy Ellipta) gabapentin 400 mg capsule 400 mg PO Q6H 09/14/24 Unkno wn History lisinopril 20 mg tablet 20 mg PO DAILY 09/14/24 Unkn own History lorazepam 0.5 mg tablet 0.5 mg PO Q8H PRN PRN anxiet y 09/14/24 Unknown History metformin 500 mg tablet 500 mg PO DAILY 09/14/24 Unk nown History quetiapine 50 mg tablet 50 mg PO QHS 09/14/24 Unknow n History ropinirole 2 mg tablet 2 mg PO QHS 09/14/24 Unknown History trazodone 150 mg tablet 150 mg PO QHS 09/14/24 Unkno wn History albuterol sulfate 90 mcg/actuation 2 puff inhalation Q 6H PRN 09/16/24 Unknown Rx aerosol inhaler shortness of breath or wheez ing #6.7 grams codeine 10 mg-guaifenesin 100 mg/5 10 ml PO Q6H PRN co ugh #237 mL 09/16/24 Unknown Rx mL oral liquid (Guaifenesin AC) albuterol sulfate 90 mcg/actuation 1 - 2 puff inhalati on Q4H PRN PRN 10/14/24 Unknown Rx aerosol inhaler (Ventolin HFA) Wheezing #1 ea ipratropium 0.5 mg-albuterol 3 mg 3 ml inhalation Q6H PRN shortness 10/14/24 Unknown Rx (2.5 mg base)/3 mL nebulization of breath #90 mL soln Allergy/AdvReac Type Severity Reaction Status Date / Time No Known Allergies Allergy Verified 11/10/24 15:07 no significant family history Surgical History History of appendectomy no surgical history Social History household members: family housing: house Smoking Status: Current every day smoker tobacco type: cigarettes alcohol intake: never substance use type: does not use Vital Signs Vital Signs Vital Signs: 11/10/24 15:03 11/10/24 15:10 11/10/24 15:35 Temperature 98.3 F Temperature Source Oral Pulse Rate 73 71 Respiratory Rate 26 H 18 Respiratory Effort Short of Breath Labored Respiratory Pattern Normal Normal Blood Pressure 152/130 H Blood Pressure Mean 137 Pulse Ox 99 Oxygen Delivery Method Nasal Cannula Nasal Cannula Oxygen Flow Rate (L/min) 3 3 11/10/24 15:44 11/10/24 15:45 11/10/24 16:00 Temperature Temperature Source Pulse Rate 72 72 Respiratory Rate 26 H 20 H Respiratory Effort Respiratory Pattern Blood Pressure 127/112 H Blood Pressure Mean 119 Pulse Ox 99 99 Oxygen Delivery Method Nasal Cannula Oxygen Flow Rate (L/min) 3 11/10/24 16:00 11/10/24 16:07 11/10/24 16:15 Temperature 97.8 F Temperature Source Oral Pulse Rate 84 71 Respiratory Rate 31 H 18 Respiratory Effort Respiratory Pattern Blood Pressure 119/52 L 163/69 H 163/69 H Blood Pressure Mean 67 100 94 Pulse Ox 98 97 Oxygen Delivery Method Nasal Cannula Oxygen Flow Rate (L/min) 3 11/10/24 16:18 11/10/24 16:30 11/10/24 16:45 Temperature Temperature Source Pulse Rate 81 77 71 Respiratory Rate 25 H 16 15 Respiratory Effort Respiratory Pattern Blood Pressure 163/69 H 138/59 H 127/67 H Blood Pressure Mean 100 81 87 Pulse Ox 99 97 98 Oxygen Delivery Method Oxygen Flow Rate (L/min) 11/10/24 17:00 11/10/24 17:00 11/10/24 17:15 Temperature 98 F Temperature Source Oral Pulse Rate 76 72 77 Respiratory Rate 24 H 15 15 Respiratory Effort Respiratory Pattern Blood Pressure 158/70 H 148/63 H 158/70 H Blood Pressure Mean 99 86 95 Pulse Ox 97 97 98 Oxygen Delivery Method Oxygen Flow Rate (L/min) 11/10/24 17:30 11/10/24 17:45 11/10/24 18:00 Temperature 98.5 F Temperature Source Oral Pulse Rate 81 77 78 Respiratory Rate 13 16 22 H Respiratory Effort Respiratory Pattern Blood Pressure 153/76 H 153/76 H Blood Pressure Mean 96 101 Pulse Ox 97 95 98 Oxygen Delivery Method Nasal Cannula Oxygen Flow Rate (L/min) 3 11/10/24 18:00 11/10/24 18:05 Temperature 98.5 F Temperature Source Pulse Rate 82 88 Respiratory Rate 19 H 22 H Respiratory Effort Respiratory Pattern Blood Pressure 159/75 H Blood Pressure Mean 103 Pulse Ox 97 Oxygen Delivery Method Nasal Cannula Oxygen Flow Rate (L/min) 3 Weight Weight: 161 lb 2.526 oz Body Mass Index (BMI) 25.9 Physical Exam Const alert and oriented x3 Constitutional Narrative: Tired Orientation / Consciousness: lethargic HEENT normocephalic Eyes PERRL and EOMs intact bilaterally Neck no lymphadenopathy Resp Resp Narrative: Left infrascapular Rales present GI normal to inspection, nondistended, normoactive bowel sounds Auscultation: hyperactive bowel sounds Extremity Extremity Narrative: Bilateral pitting edema, some tenderness over her left ankle Neuro oriented x3 Sensorium / Orientation: awake, alert and oriented to person Psych affect normal Results Medical Records Data Attestation: I reviewed the patient's medical records Lab / Micro Data Attestation: I reviewed the patient's lab results. 11/10/24 14:50 11/10/24 14:50 Labs: Laboratory Results - last 24 hr 11/10/24 14:50: WBC 4.5, RBC 4.85, Hgb 13.4, Hct 43.0, MCV 88.7, MCH 27.6, MCHC 31.2 L, RDW Std Deviation 48.4 H, RDW Coeff of Magno 15.0 H, Plt Count 246, MPV 10.1, Immature Gran % (Auto) 0.200, Neut % (Auto) 58.0, Lymph % (Auto) 29.1, Hooker % (Auto) 9.0, Eos % (Auto) 3.3, Baso % (Auto) 0.4, Absolute Neuts (auto) 2.6, Absolute Lymphs (auto) 1.32, Nucleated RBC % 0, Sodium 141, Potassium 4.7, Chloride 103, Carbon Dioxide 24.3, Anion Gap 13, BUN 24 H, Creatinine 1.21 H, Estim Creat Clear Calc 43.64 L, Est GFR (MDRD) Non-Af 48 L, BUN/Creatinine Ratio 19.8, Glucose 81, Calcium 9.4, Troponin T High Sens 19 H, NT pro BNP II 392 Micro: Microbiology 11/10/24 15:45 Mucosa - Nose SARS-CoV-2, Influenza & RSV (PCR) - Final Imaging Radiology Impression Chest X-Ray 11/10/24 15:45 IMPRESSION: Cardiomegaly with mild congestion. Reading Location: [facility] Assessment & Plan Assessment/Plan (1) Pneumonia: PLAN: Plan 69-year-old female with history of and will start management on those lines. And is noted to have localized Rales on examination. NT proBNP is normal, and oxygen requirement is at her baseline. I suspect community-acquired pneumonia versus viral pneumonia. # Acute on chronic respiratory failure # ?Community-acquired pneumonia -Started on azithromycin plus ceftriaxone -Continue oxygen monitor via nasal cannula to target 92 2-94% -Bronchopulmonary hygiene -Admit to [facility] for observation -If there is improvement can switch to oral antibiotics -Follow-up on the next troponin levels as the first 1 was mildly elevated -Continue home albuterol/ipratropium bromide -Follow-up on urine Legionella, nasal swabs for viral PCR #Congestive heart failure -Concerns regarding heart failure but clinically and lab findings are not consistent -Echocardiogram -Continue IV Lasix 40 mg daily -She was previously on Lasix 40 mg oral at home, will hold for now #Hypertension -Does not take any home medications -Restart lisinopril 20 mg as previously prescribed -Monitor during hospitalization #Nicotine use -Nicotine patches if needed #DVT prophylaxis -Lovenox subcu Duration of admission: Likely less than 2 days 11/10/241911 <Electronically signed by Gaurang Donahue MD> Cosigner Signature (if applicable): CC: Dr. Gaurang Donahue MD; No Primary Care Physician~ Signed [facility] Work Phone: Reason for referral (narrative)No reason for referral information availableWCleveland [facility] Work Phone: Chief Complaint and Reason for Visit Chief Complaint Admit Date SOB, CHEST DISCOMFORT, COUGH August 2:03pm BLE SWELLING September 12, 2024 2 :51pm AECOPD 2/2 RSV September 14, 2024 4 :43pm BLE SWELLING September 15, 2024 1 1:13am AECOPD 2/2 RSV September 15, 2024 7 :11pm AECOPD 2/2 RSV September 16, 2024 2 :22pm SOB October 13, 2024 10:51pm SOB November 10, 2024 6:5 6pm Shortness of breath November 10, 2024 7:0 1pm Reason for Visit Admit Date COPD with acute exacerbation August 4:43pm Edema, peripheral September 14, 2024 4 :43pm Hypoxia September 14, 2024 4 :43pm Leukocytosis September 14, 2024 4 :43pm Respiratory syncytial virus (RSV) Auguar 2024 4:43pm Pneumonia November 10, 2024 6:5 6pm Chief Complaint Admit Date SOB, CHEST DISCOMFORT, COUGH August 2:03pm BLE SWELLING September 12, 2024 2 :51pm AECOPD 2/2 RSV September 14, 2024 4 :43pm BLE SWELLING September 15, 2024 1 1:13am AECOPD 2/2 RSV September 15, 2024 7 :11pm AECOPD 2/2 RSV September 16, 2024 2 :22pm SOB October 13, 2024 10:51pm SOB November 10, 2024 6:5 6pm Shortness of breath November 10, 2024 7:0 1pm Shortness of breath November 11, 2024 7:2 2am Shortness of breath November 12, 2024 12: 14pm Reason for Visit Admit Date COPD with acute exacerbation August 4:43pm Edema, peripheral September 14, 2024 4 :43pm Hypoxia September 14, 2024 4 :43pm Leukocytosis September 14, 2024 4 :43pm Respiratory syncytial virus (RSV) 2024 4:43pm Pneumonia November 10, 2024 6:5 6pm COPD exacerbation November 10, 2024 6:5 6pm Chief Complaint Admit Date SOB, CHEST DISCOMFORT, COUGH August 2:03pm BLE SWELLING September 12, 2024 2 :51pm AECOPD 2/2 RSV September 14, 2024 4 :43pm BLE SWELLING September 15, 2024 1 1:13am AECOPD 2/2 RSV September 15, 2024 7 :11pm AECOPD 2/2 RSV September 16, 2024 2 :22pm SOB October 13, 2024 10:51pm SOB November 10, 2024 6:5 6pm Shortness of breath November 10, 2024 7:0 1pm Shortness of breath November 11, 2024 7:2 2am Shortness of breath November 12, 2024 12: 14pm LABS January 02, 2025 10:47a m Chief Complaint Admit Date LABS January 02, 2025 10:47a m Advance Directives No Advanced Directives Records Found Advance Directive Response Recorded Date/ Time Living Will No September 12 4:01pm Power of [employer] No September 12, 2024 4:01pm Living Will No October 13 11:57pm Power of [employer] No October 13, 2024 11:57pm Living Will No November 10, 2024 3:09pm Power of [employer] No November 10 3:09pm Living Will No September 14 7:04pm Power of [employer] No September 14, 2024 7:04pm Advance Directive Response Recorded Date/ Time Living Will No September 12 4:01pm Power of [employer] No September 12, 2024 4:01pm Living Will No October 13 11:57pm Power of [employer] No October 13, 2024 11:57pm Living Will No November 10, 2024 8:57pm Power of [employer] No November 10 8:57pm Living Will No September 14 7:04pm Power of [employer] No September 14, 2024 7:04pm Advance Directive Response Recorded Date/ Time Living Will No September 12 4:01pm Do you have a Healthcare Power of [employer]? No September 12, 2024 4:01pm Living Will No October 13 11:57pm Do you have a Healthcare Power of [employer]? No October 13, 2024 11:57pm Living Will No November 10, 2024 8:57pm Do you have a Healthcare Power of [employer]? No November 10, 2024 8:57pm Living Will No September 14 7:04pm Do you have a Healthcare Power of [employer]? No September 14, 2024 7:04pm Summary Purpose Family History No Family History Records Found Additional Source Comments Care Teams (unrecognized sec tion and content) Team Status: Active Member Role Status Dates No Primary Care Physician Primary Care Provider Active Team Status: Inactive Member Role Status Dates Dr. Wilver Gilbert , DO Attending Provider Active Start : September 12, 2024 End: September 12, 2024 Dr. Wilver Gilbert DO Emergency Provider Active Start : September 12, 2024 End: September 12, 2024 No Primary Care Physician Primary Care Provider Active Start: September 12, 2024 End: September 12, 2024 Team Status: Active Member Role Status Dates Dr. Javier Styles MD Attending Provider Active Start: September 12, 2024 Dr. Wilver Gilbert DO Referring Provider Active Start : September 12, 2024 Team Status: Inactive Member Role Status Dates No Primary Care Physician Primary Care Provider Active Start: September 14, 2024 End: September 16, 2024 Dr. Melquiades Macdonald DO Referring Provider Active Start: September 14, 2024 End: September 16, 2024 Dr. Melquiades Macdonald DO Emergency Provider Active Start: September 14, 2024 End: September 16, 2024 Dr. Gladis Luna DO Admit Provider Active Start : September 14, 2024 End: September 16, 2024 Dr. Gladis Luna DO Other Provider Active Start : September 14, 2024 End: September 16, 2024 Dr. Karthik Rodrigues DO Attending Provider Active Start: September 14, 2024 End: September 16, 2024 Team Status: Active Member Role Status Dates No Primary Care Physician Primary Care Provider Active Start: September 15, 2024 Dr. Reema Campuzano MD Attending Provider Active Start: September 15, 2024 Team Status: Active Member Role Status Dates Dr. Javier Styles MD Attending Provider Active Start: September 15, 2024 Dr. Gladis Luna DO Referring Provider Active S tart: September 15, 2024 Team Status: Active Member Role Status Dates No Primary Care Physician Primary Care Provider Active Start: September 15, 2024 Dr. Melquiades Macdonald DO Emergency Provider Active Start: September 15, 2024 Dr. Gladis Luna DO Admit Provider Active Start : September 15, 2024 Dr. Gladis Luna DO Other Provider Active Start : September 15, 2024 Dr. Karthik Rodrigues DO Attending Provider Active Start: September 15, 2024 Dr. Karthik Rodrigues DO Other Provider Active S tart: September 15, 2024 Team Status: Active Member Role Status Dates No Primary Care Physician Primary Care Provider Active Start: September 16, 2024 Dr. Melquiades Macdonald DO Emergency Provider Active Start: September 16, 2024 Dr. Gladis Luna DO Admit Provider Active Start : September 16, 2024 Dr. Gladis Luna DO Other Provider Active Start : September 16, 2024 Dr. Karthik Rodrigues DO Attending Provider Active Start: September 16, 2024 Dr. Karthik Rodrigues DO Other Provider Active S tart: September 16, 2024 Team Status: Inactive Member Role Status Dates No Primary Care Physician Primary Care Provider Active Start: October 13, 2024 End: October 14, 2024 Pako Fink MD Attending Provider Active Star t: October 13, 2024 End: October 14, 2024 Pako Fink MD Emergency Provider Active Star t: October 13, 2024 End: October 14, 2024 Team Status: Active Member Role Status Dates No Primary Care Physician Primary Care Provider Active Start: November 10, 2024 Dr. Bennie Dorsey DO Emergency Provider Active Start: November 10, 2024 Dr. Gaurang Donahue MD Admit Provider Active St art: November 10, 2024 Dr. Gaurang Donahue MD Attending Provider Active Start: November 10, 2024 Team Status: Active Member Role Status Dates No Primary Care Physician Primary Care Provider Active Start: November 10, 2024 Dr. Bennie Dorsey DO Emergency Provider Active Start: November 10, 2024 Dr. Gaurang Donahue MD Attending Provider Active Start: November 10, 2024 Team Status: Inactive Member Role Status Dates No Primary Care Physician Primary Care Provider Active Start: November 10, 2024 End: November 12, 2024 Dr. Bennie Dorsey DO Emergency Provider Active Start: November 10, 2024 End: November 12, 2024 Dr. Gaurang Donahue MD Admit Provider Active St art: November 10, 2024 End: November 12, 2024 Dr. Gaurang Donahue MD Other Provider Active St art: November 10, 2024 End: November 12, 2024 Dr. Chana Staley MD Attending Provider Active Start: November 10, 2024 End: November 12, 2024 Team Status: Active Member Role Status Dates No Primary Care Physician Primary Care Provider Active Start: November 11, 2024 Dr. Bennie Dorsey DO Emergency Provider Active Start: November 11, 2024 Dr. Gaurang Donahue MD Admit Provider Active St art: November 11, 2024 Dr. Gaurang Donahue MD Other Provider Active St art: November 11, 2024 Dr. Chana Staley MD Attending Provider Active Start: November 11, 2024 Dr. Chana Staley MD Other Provider Active Star t: November 11, 2024 Team Status: Active Member Role Status Dates No Primary Care Physician Primary Care Provider Active Start: November 12, 2024 Dr. Bennie Dorsey DO Emergency Provider Active Start: November 12, 2024 Dr. Gaurang Donahue MD Admit Provider Active St art: November 12, 2024 Dr. Gaurang Donahue MD Other Provider Active St art: November 12, 2024 Dr. Chana Staley MD Attending Provider Active Start: November 12, 2024 Dr. Chana Staley MD Other Provider Active Star t: November 12, 2024 Team Status: Active Member Role Status Dates Dr. Daniele Salazar MD Primary Care Provider Active Team Status: Inactive Member Role Status Dates Dr. Daniele Salazar MD Primary Care Provider Active Start: December 21, 2024 End: December 21, 2024 Dr. Daniele Salazar MD Attending Provider Active Start: December 21, 2024 End: December 21, 2024 Dr. Daniele Salazar MD Referring Provider Active Start: December 21, 2024 End: December 21, 2024 Team Status: Inactive Member Role Status Dates Dr. Daniele Salazar MD Primary Care Provider Active Start: January 02, 2025 End: January 02, 2025 Dr. Daniele Salazar MD Attending Provider Active Start: January 02, 2025 End: January 02, 2025 Dr. Daniele Salazar MD Referring Provider Active Start: January 02, 2025 End: January 02, 2025 Team Status: Active Member Role/Relationship Status Dates Dr. Daniele Salazar MD Primary Care Provider Active Team Status: Inactive Member Role/Relationship Status Dates Dr. Daniele Salazar MD Primary Care Provider Active Start: December 21, 2024 End: December 21, 2024 Dr. Daniele Salazar MD Attending Provider Active Start: December 21, 2024 End: December 21, 2024 Dr. Daniele Salazar MD Referring Provider Active Start: December 21, 2024 End: December 21, 2024 Team Status: Inactive Member Role/Relationship Status Dates Dr. Daniele Salazar MD Primary Care Provider Active Start: January 02, 2025 End: January 02, 2025 Dr. Daniele Salazar MD Attending Provider Active Start: January 02, 2025 End: January 02, 2025 Dr. Daniele Salazar MD Referring Provider Active Start: January 02, 2025 End: January 02, 2025 Team Status: Inactive Member Role/Relationship Status Dates Dr. Daniele Salazar MD Primary Care Provider Active Start: March 10, 2025 End: March 10, 2025 Dr. Daniele Salazar MD Attending Provider Active Start: March 10, 2025 End: March 10, 2025 Goals (unrecognized section and content) Goals may be documented in a n alternate section INFORMATION SOURCE (unrecogn ized section and content) DATE CREATED AUTHOR 04/22/2025 [facility] FOR RECORDS PERTAINING TO PATIENTS WHO ARE OR HAVE BEEN ENROLLED IN A CHEMICAL DEPENDENCY/SUBSTANCEABUSE PROGRAM, SOME INFORMATION MAY BE OMITTED. This clinical summary was aggregated from multiple sources. Caution should be exercised in using it in the provision of clinical care. This summary normalizes information from multiple sources, and as a consequence, information in this document may materially change the coding, format and clinical context of patient data. In addition, data may be omitted in some cases. CLINICAL DECISIONS SHOULD BE BASED ON THE PRIMARY CLINICAL RECORDS. [employer] provides no warranty or guarantee of the accuracy or completeness of information in this document.
--- NOTE | 2025-04-24 01:49 | EKG12_ITS ---
Test Reason : CP Blood Pressure : */* mmHG Vent. Rate : 61 BPM Atrial Rate : 61 BPM P-R Int : 144 ms QRS Dur : 80 ms QT Int : 432 ms P-R-T Axes : 35 -11 33 degrees QTcB Int : 434 ms Normal sinus rhythm Possible Inferior infarct , age undetermined Abnormal ECG Confirmed by HAL MCCOY ([id number]), editor greeting card TIFFANY BRAN ([id number]) on 04/25/2025 1:07:43 PM Referred By: MARTHA Confirmed By: HAL MCCOY
--- NOTE | 2025-04-24 03:31 | EX.ED.DYSGE1 ---
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 She also has hypertension. She states she has been having lower abdominal discomfort for the past few weeks. She states she has had increased bowel movements with this and states that they are soft but denies diarrhea. She states they are not dark or bloody in color either. She reports that there has been no symptom improvement and therefore she saw her family doctor who had concern for potential diverticulitis and placed her on antibiotics. She states has been taking these for the past few days but symptoms have been persistent and therefore she comes in for evaluation [facility] Medical History (Updated 04/24/25 @ 04:[address] Will Kaba, ) COPD (chronic obstructive pulmonary disease) Leukocytosis Kidney disease Bipolar disorder Anxiety Depression Osteoporosis Smoker Chest pain Hypertension Migraines Respiratory syncytial virus (RSV) COPD with acute exacerbation COPD (chronic obstructive pulmonary disease) Kidney disease Home Medications ?Medication ?Instructions ?Recorded ?Last Taken ?Type albuterol sulfate 2.5 mg/3 mL 2.5 mg (3 mL) inhalation Q4H PRN 09/12/24 11/10/24 Rx (0.083 %) solution for nebulization #25 vials gabapentin 400 mg capsule 400 mg PO Q6H 09/14/24 11/10/24 History quetiapine 50 mg tablet 50 mg PO QHS 09/14/24 11/09/24 History ropinirole 2 mg tablet 2 mg PO QHS 09/14/24 11/09/24 History trazodone 150 mg tablet 150 mg PO QHS 09/14/24 11/09/24 History albuterol sulfate 90 mcg/actuation 2 puff inhalation Q6H PRN 09/16/24 11/09/24 Rx aerosol inhaler shortness of breath or wheezing #6.7 grams albuterol sulfate 90 mcg/actuation 1 - 2 puff inhalation Q4H PRN PRN 10/14/24 11/09/24 Rx aerosol inhaler (Ventolin HFA) Wheezing #1 ea ipratropium 0.5 mg-albuterol 3 mg 3 ml inhalation Q6H PRN shortness 10/14/24 11/10/24 Rx (2.5 mg base)/3 mL nebulization of breath #90 mL soln lisinopril 20 mg tablet 20 mg PO DAILY 30 days #30 tabs 11/12/24 Unknown Rx buspirone 10 mg tablet 10 mg PO TID 04/24/25 Unknown History ciprofloxacin HCl 750 mg tablet 750 mg PO Q12.TCU 04/24/25 Unknown History divalproex 250 mg tablet,delayed 250 mg PO BID 04/24/25 Unknown History release metoclopramide HCl 5 mg tablet 5 mg PO TID PRN PRN abdominal pain 04/24/25 Unknown Rx (Reglan) and/or nausea #30 tabs metronidazole 500 mg tablet 500 mg PO Q6H 04/24/25 Unknown History Allergy/AdvReac Type Severity Reaction Status Date / Time No Known Allergies Allergy Verified 11/10/24 15:07 Surgical History History of appendectomy Social History household members: family housing: house Smoking Status: Current every day smoker tobacco type: cigarettes alcohol intake: never substance use type: does not use ROS ROS ED Constitutional Constitutional ED: Denies chills or fever(s) Eyes Eyes: Denies change in vision ENT ENT ED: Denies sore throat Cardiovascular Cardiovascular: Denies chest pain Respiratory/Chest Respiratory/Chest: Denies cough or dyspnea Gastrointestinal Gastrointestinal: Reports abdominal pain, diarrhea and nausea; Denies vomiting Genitourinary Genitourinary ED: Denies dysuria Musculoskeletal Musculoskeletal: Denies myalgias Integumentary Denies rash Neurologic Neurologic: Denies headache(s) Psychiatric Psychiatric: Reports anxiety Hematologic/Lymphatic Hematologic/Lymphatic: Denies easy bleeding or easy bruising EXAM Physical Exam Const Vital Signs: 04/24/25 00:25 04/24/25 00:30 04/24/25 00:30 Temperature 98 F 98 F Temperature Source Oral Oral Pulse Rate 75 78 Respiratory Rate 16 18 Respiratory Effort Normal Non-Labored Blood Pressure 148/128 H 148/128 H Blood Pressure Mean 134 134 Pulse Ox 100 98 Oxygen Delivery Method Nasal Cannula Nasal Cannula Oxygen Flow Rate (L/min) 4 4 04/24/25 01:00 04/24/25 02:00 04/24/25 03:00 Temperature 98 F 98.1 F 98 F Temperature Source Oral Oral Oral Pulse Rate 65 76 59 L Respiratory Rate 18 18 18 Respiratory Effort Blood Pressure 143/75 H 147/74 H 130/66 H Blood Pressure Mean 97 98 87 Pulse Ox 98 98 97 Oxygen Delivery Method Nasal Cannula Nasal Cannula Nasal Cannula Oxygen Flow Rate (L/min) 2 2 2 04/24/25 03:40 Temperature 98 F Temperature Source Pulse Rate 61 Respiratory Rate 15 Respiratory Effort Blood Pressure 166/79 H Blood Pressure Mean 108 Pulse Ox 100 Oxygen Delivery Method Oxygen Flow Rate (L/min) Positive well nourished, well developed and obese General Appearance ED: well developed; Negative for pallor Nutritional Appearance: obese HEENT Reports dry mucous membranes HEENT Narrative: Normocephalic atraumatic No tongue or lip swelling no oral lesions no airway edema or compromise; no secondary findings in the posterior pharynx to suggest infection Mucous membranes are mildly dry and tacky Mouth ED: Yes dry mucous membranes Mouth: dry mucous membranes Eyes PERRL and EOMs intact bilaterally General Eye ED: Negative for scleral icterus Neck supple Neck Narrative: No nuchal rigidity or meningeal signs noted Resp normal respiratory effort Resp Narrative: Breath sounds are diminished throughout with diffuse expiratory wheeze consistent history of COPD/emphysema but no signs of respiratory distress Cardio regular rate and regular rhythm Rate: other Other Details: Heart is regular rate and rhythm Radial and carotid pulses are equal and symmetric GI non-distended and no masses GI Narrative: Abdomen is soft and nondistended with hypoactive bowel sounds. There is pain on palpation along the lower abdomen diffusely. No voluntary guarding or rigidity. No pulsatile mass or fluid wave. No peritoneal signs. No organomegaly. Auscultation: hypoactive bowel sounds Palpation: soft Back/Spine no CVA tenderness Extremity normal to inspection Neuro oriented x3, CN's II-XII intact bilaterally and no sensory deficits noted Sensorium / Orientation: alert Motor Exam: strength 5/5 throughout Psych Psych Narrative: Patient is extremely anxious and even has generalized shaking secondary to this Mood & Affect: anxious Skin no rashes or lesions noted General Skin Exam: Negative for jaundice or pallor MDM MDM MDM Narrative Medical decision making narrative: Patient arrived to the ER hypertensive but has a past medical history of this and otherwise with stable vitals. She reported 2 weeks of symptoms that have not been improving despite time and antibiotics per her family doctor. With lower abdominal discomfort there is concern for colitis versus diverticulitis. Patient could have a potential intestinal abscess or atypical presentation for an obstruction. Secondary to this basic labs and a CT scan with IV contrast were obtained. As she is visibly anxious and has a past medical history of this I feel this is contributing to her symptoms. Therefore on top of morphine for pain control and Zofran for nausea she was treated with IV Ativan. Her labs revealed no signs of acute kidney injury or clinically significant electrolyte changes or elevation to her lipase or liver enzymes going against acute pancreatitis or acute cholecystitis. CT scan revealed no sign of secondary infection such as pancreatitis colitis diverticulitis obstruction or intestinal abscess. It did note gastritis/gastroparesis but the patient's pain is much lower than the location of the stomach. However as this could potentially cause some of her symptoms I will place her on low-dose Reglan which should help control nausea and potential gastroparesis. However patient's vitals have improved with treatment she reports resolution of the abdominal discomfort with treatment and her workup reveals no clinically significant findings. Therefore there is no need for further observation in the hospital and she is otherwise safe for discharge. History & Record Review Discussion w/independent historian: Patient Lab Data Attestation: I reviewed the patient's lab results. Labs: Laboratory Results - last 24 hr 04/24/25 04/24/25 00:35 01:04 WBC 9.9 RBC 4.73 Hgb 13.2 Hct 40.6 MCV 85.8 MCH 27.9 MCHC 32.5 RDW Std Deviation 43.8 RDW Coeff of Magno 14.0 Plt Count 225 MPV 11.2 Immature Gran % (Auto) 0.200 Neut % (Auto) 67.3 Lymph % (Auto) 23.4 [place] % (Auto) 6.6 Eos % (Auto) 2.1 Baso % (Auto) 0.4 Absolute Neuts (auto) 6.6 Absolute Lymphs (auto) 2.31 Nucleated RBC % 0 Sodium 141 Potassium 3.6 Chloride 104 Carbon Dioxide 22.9 Anion Gap 14 BUN 16 Creatinine 1.27 H Estim Creat Clear Calc 41.11 L Est GFR (MDRD) Non-Af 45 L BUN/Creatinine Ratio 12.2 Glucose 107 H Lactic Acid 1.1 Calcium 9.2 Total Bilirubin 0.29 Direct Bilirubin 0.14 AST 26 ALT 10 Alkaline Phosphatase 75 Total Protein 7.0 Albumin 4.2 Globulin 2.8 Lipase 40 Radiography Diagnostic Testing: Clinical Impression(s) from Imaging Studies Abdomen/Pelvis CT 04/24/25 00:51 IMPRESSION: Prior hysterectomy. Atherosclerotic, tortuous ectatic aorta and iliac arteries. Unremarkable iliac endovascular stents. Mild osteopenia. Mild diffuse spondylosis. Calcified atheromatous plaques of the aorta and iliac arteries. Gastroparesis/gastritis. Prior appendectomy. Mild hepatomegaly. Unremarkable bilateral hip metallic prosthesis. Reading Location: [place] [id number] Discharge Plan Triage Chief Complaint: Chest Pain ED Provider: Will Kaba Dx/Rx/DC Orders Clinical Impression: Nonspecific abdominal pain, Anxiety, COPD (chronic obstructive pulmonary disease), Bipolar disorder, Hypertension Instructions: Abdominal Pain, Your Body's Response to Anxiety Prescriptions: New metoclopramide HCl [Reglan] 5 mg tablet 5 mg PO TID PRN PRN (Reason: abdominal pain and/or nausea) Qty: 30 0RF No Action albuterol sulfate 2.5 mg /3 mL (0.083 %) solution for nebulization 2.5 mg inhalation Q4H PRN Qty: 25 0RF Rx Instructions: Use q4 hours and PRN for wheezing albuterol sulfate [Ventolin HFA] 90 mcg/actuation HFA aerosol inhaler 1 - 2 puff inhalation Q4H PRN PRN (Reason: Wheezing) Qty: 1 0RF ipratropium-albuterol 0.5 mg-3 mg(2.5 mg base)/3 mL solution for nebulization 3 ml inhalation Q6H PRN (Reason: shortness of breath) Qty: 90 0RF lisinopril 20 mg tablet 20 mg PO DAILY 30 Days Qty: 30 0RF ciprofloxacin HCl 750 mg tablet 750 mg PO Q12.TCU divalproex 250 mg tablet,delayed release (DR/EC) 250 mg PO BID metronidazole 500 mg tablet 500 mg PO Q6H buspirone 10 mg tablet 10 mg PO TID gabapentin 400 mg capsule 400 mg PO Q6H ropinirole 2 mg tablet 2 mg PO QHS trazodone 150 mg tablet 150 mg PO QHS quetiapine 50 mg tablet 50 mg PO QHS albuterol sulfate 90 mcg/actuation HFA aerosol inhaler 2 puff inhalation Q6H PRN (Reason: shortness of breath or wheezing) Qty: 6.7 0RF Primary Care Provider: Daniele Salazar Chi Referrals: Daniele Salazar Chi, MD [Primary Care Provider] - Activity Restrictions/Additional Instructions: Your CT scan did not show any sign of intestinal infection such as an abscess or diverticulitis or bowel blockage. It did show changes to your stomach concerning for gastritis or gastroparesis but your pain is much lower than the location of the stomach. Please try taking the Reglan as directed to help control symptoms. I do feel part of your pain is related to breakthrough anxiety and therefore you may need further medication other than the BuSpar to help control this. Follow-up with your family doctor for repeat evaluation and return to the ER should you have any further concerns. Print Language: [place] Disposition Disposition: Home, Self Care
--- NOTE | 2025-04-24 07:03 | PCA ---
CALLED PHYSICIANS FOR AN ETA UPDATE AND THEY SAID IT WOULD BE CLOSER TO 0900
== END 2025-04-24 10:19 | disposition home or self-care (01) ==
PROVIDERS: Emergency Provider Emergency Medicine; PCP Family Medicine Geriatric Medicine; Visit Provider Emergency Medicine
DX: R10.9 Unspecified abdominal pain (principal); F31.9 Bipolar disorder, unspecified; J43.9 Emphysema, unspecified; F41.9 Anxiety disorder, unspecified; I10 Essential (primary) hypertension; R19.7 Diarrhea, unspecified; R11.2 Nausea with vomiting, unspecified; E66.9 Obesity, unspecified; F17.210 Nicotine dependence, cigarettes, uncomplicated; Z99.81 Dependence on supplemental oxygen; Z79.899 Other long term (current) drug therapy
CPT/HCPCS: 74177; 80048; 80076; 83605; 83690; 85025; 93005; 96361; 96374; 96375; 96376; 99285; Q9967; J2405

== ENCOUNTER → 2025-05-04 | Outpatient (CLI) | payer MEDICARE, SELFPAY ==
--- NOTE | 2025-05-04 11:08 | RAD_ITS ---
PROCEDURE: L/S SPINE MIN 4 VIEWS 05/04/2025 REASON FOR EXAM: COLLAPSED VERTEBRA, NOT ELSEWHERE CLASSIFIED, LUMBAR REGION, INIT TECHNIQUE: Procedure Code: RADSPLS Modality: DX Procedure: L/S SPINE MIN 4 VIEWS COMPARISON: None. FINDINGS: Vertebral body heights: Oblique view show intact pars interarticularis. Negative for fracture. Alignment: No significant curvature. Disc spaces: Mild degenerative disc diseaseof the lower lumbar spine. Facet joints: Moderate bilateral facet joint hypertrophyfrom L3-S1. Soft tissues: Adjacent soft tissues negative. Other: Iliac stents. Bilateral hip arthroplasties. Normal amount of stool in the imaged colon. RAD/L/S Spine Min 4 Views IMPRESSION: Degenerative changes of the lumbar spine. Reading Location: [id number]
== END | disposition home or self-care (01) ==
LOC: RAD 11:06
PROVIDERS: PCP Family Medicine Geriatric Medicine; Referring Provider Family Medicine Geriatric Medicine; Visit Provider Family Medicine Geriatric Medicine
DX: M48.56XA Collapsed vertebra, not elsewhere classified, lumbar region, initial encounter for fracture (principal)
CPT/HCPCS: 72110

== ENCOUNTER 2025-05-08 18:05 | Emergency (ER) | payer MEDICARE, SELFPAY ==
[2025-05-08 18:06] VITALS: BP 168/84; PULSE 85; RESP 36; TEMP 36.9; O2SAT 98; BMI 27.1
[2025-05-08 18:27] VITALS: O2SAT 97
--- NOTE | 2025-05-08 18:28 | EKG12_ITS ---
Test Reason : SOB Blood Pressure : */* mmHG Vent. Rate : 74 BPM Atrial Rate : 74 BPM P-R Int : 154 ms QRS Dur : 72 ms QT Int : 372 ms P-R-T Axes : 72 -9 55 degrees QTcB Int : 412 ms Normal sinus rhythm Normal ECG Confirmed by Akira Bernardo ([id number]), editorial project manager FLAKO NORMAN ([id number]) on 05/09/2025 10:24:08 AM Referred By: Confirmed By: Akira Bernardo
[2025-05-08] MEDS: Albuterol 2.5 MG/3 ML VIAL.NEB. INHALATION ×2 (18:42)
[2025-05-08 18:45] VITALS: PULSE 88; RESP 21
[2025-05-08 19:03] VITALS: BP 156/108; PULSE 99; RESP 24; TEMP 36.9; O2SAT 99
--- NOTE | 2025-05-08 19:10 | RAD_ITS ---
PROCEDURE: CHEST PA AND LATERAL 05/08/2025 REASON FOR EXAM: DYSPNEA, DYSPNEA ON EXERTION, WHEEZING AND CHEST P TECHNIQUE: Procedure Code: RADCXR Modality: DX Procedure: CHEST PA AND LATERAL COMPARISON: 11/10/2024 FINDINGS: Mild pulmonary vascular congestion. No focal consolidation. No pleural effusion or pneumothorax. Cardiac silhouette is within normal limits. No acute fractures. RAD/Chest PA and Lateral IMPRESSION: Mild pulmonary vascular congestion. No focal consolidation. [id number]
[2025-05-08 19:20] LABS: Anion Gap 10 (5-15); BUN 17 mg/dL (4-19); BUN/Creat Ratio 15.4 RATIO (10-20); Calcium,Total 9.0 mg/dL (7.6-11.0); Carbon Dioxide 28.9 mmol/L (21.0-32.0); Chloride 102 mmol/L (98-108); Estimated Creatinine Clearance 49.83 ml/min (50-250); Glucose 100 mg/dL (70-99); Potassium 4.5 mmol/L (3.3-5.1); Troponin T High Sensitivity 31 ng/L (<=14)
--- NOTE | 2025-05-08 19:35 | ED.VIS.DYS ---
HPI History of Present Illness Chief Complaint: Shortness of Breath Detail of Chief Complaint: Shortness of breath, history of COPD on oxygen by nasal cannula at 3 L Informant: patient Onset/Context/Timing Onset: Days Context: gradual and onset Timing: Continuous and Waxes and wanes Quality: Positive for Dyspnea on exertion, Orthopnea (Has slept in a chair for the past 2 years) and Wheezing; Negative for PND Current Severity: Mild Maximum Severity: Moderate Worsened by: Exertion and Coughing Relieved by: Nothing Associated Symptoms cough and sore throat; Negative for rhinorrhea, post nasal drip, ear pain, fever, subjective, chills, sweats, clear sputum, white sputum, yellow sputum or green sputum Chest Pain: Positive for Intermittent and Pressure Narrative Narrative: Patient is a 69-year-old woman. She has history of COPD on oxygen by nasal cannula at 3 L. She has had no increase in her oxygen past 1 to 2 months. She has no history of PE or DVT. Denies leg pain, swelling discoloration. She has not been on prednisone in the last 3 to 6 months. She denies fever or chills. She reports rhinorrhea that started yesterday. She denies postnasal drainage or sore throat presently. She does have some discomfort when she coughs. Her cough is essentially nonproductive. Patient denies fever or chills. Patient denies night sweats. Patient denies headache, visual, ocular auditory symptoms. Patient [place] neck pain or neck stiffness. Patient does complain of retrosternal chest pressure over the past 1 to 2 weeks can vary from minutes to hours. It is not precipitated by any activity or change in position. Nothing makes it better or worse. There is no radiation, diaphoresis or nausea. She does have a history of hypertension. She denies pain rating to her back or ripping tearing pain. She denies leg pain, swelling or discoloration. She denies symptoms of claudication. PE Risk Factors: Positive for - (COPD exacerbation); Negative for Cancer, OCP + Smoking + > 35, Prior DVT or PE, Recent immobilization, Recent surgery or Recent travel Prior similar symptoms: Yes Recent Illness/Hospitalization: No PFSH PFSH Medical History COPD (chronic obstructive pulmonary disease) Leukocytosis Kidney disease Bipolar disorder Anxiety Depression Osteoporosis Smoker Chest pain Hypertension Migraines Respiratory syncytial virus (RSV) COPD with acute exacerbation COPD (chronic obstructive pulmonary disease) Kidney disease Home Medications ?Medication ?Instructions ?Recorded ?Last Taken ?Type albuterol sulfate 2.5 mg/3 mL 2.5 mg (3 mL) inhalation Q4H PRN 09/12/24 11/10/24 Rx (0.083 %) solution for nebulization #25 vials gabapentin 400 mg capsule 400 mg PO Q6H 09/14/24 11/10/24 History quetiapine 50 mg tablet 50 mg PO QHS 09/14/24 11/09/24 History ropinirole 2 mg tablet 2 mg PO QHS 09/14/24 11/09/24 History trazodone 150 mg tablet 150 mg PO QHS 09/14/24 11/09/24 History albuterol sulfate 90 mcg/actuation 2 puff inhalation Q6H PRN 09/16/24 11/09/24 Rx aerosol inhaler shortness of breath or wheezing #6.7 grams ipratropium 0.5 mg-albuterol 3 mg 3 ml inhalation Q6H PRN shortness 10/14/24 11/10/24 Rx (2.5 mg base)/3 mL nebulization of breath #90 mL soln lisinopril 20 mg tablet 20 mg PO DAILY 30 days #30 tabs 11/12/24 Unknown Rx buspirone 10 mg tablet 10 mg PO TID 04/24/25 Unknown History divalproex 250 mg tablet,delayed 250 mg PO BID 04/24/25 Unknown History release metronidazole 500 mg tablet 500 mg PO Q6H 04/24/25 Unknown History azithromycin 250 mg tablet 250 mg PO DAILY 05/08/25 Unknown History doxycycline monohydrate 100 mg 100 mg PO BID #10 CAPSULES 05/08/25 Unknown Rx capsule metoclopramide HCl 10 mg tablet 10 mg PO 4X/DAY 05/08/25 Unknown History mirtazapine 7.5 mg tablet 7.5 mg PO QHS 05/08/25 Unknown History prednisone 20 mg tablet 60 mg (3 x 20 mg) PO DAILY #12 05/08/25 Unknown Rx TABLETS zolpidem 10 mg tablet 10 mg PO QHS PRN 05/08/25 Unknown History Allergy/AdvReac Type Severity Reaction Status Date / Time No Known Allergies Allergy Verified 05/08/25 18:06 Family History no significant family his Surgical History History of appendectomy Social History household members: family housing: house Smoking Status: Current every day smoker tobacco type: cigarettes alcohol intake: never substance use type: does not use ROS ROS ED Constitutional Constitutional ED: Denies chills, fever(s), sweats or weight loss Eyes Eyes: Denies blurry vision or change in vision ENT ENT ED: Reports rhinorrhea; Denies ear pain or sore throat Cardiovascular Cardiovascular: Reports chest pain and orthopnea; Denies palpitations, paroxysmal nocturnal dyspnea or racing heartbeat Respiratory/Chest Respiratory/Chest: Reports cough, dyspnea, dyspnea on exertion and orthopnea; Denies paroxysmal nocturnal dyspnea or sputum Gastrointestinal Gastrointestinal: Denies abdominal pain, diarrhea, nausea or vomiting Genitourinary Genitourinary ED: Denies dysuria, hematuria or urinary frequency Musculoskeletal Musculoskeletal: Denies arthralgias, back pain, myalgias or neck pain Integumentary Denies abscess or rash Neurologic Neurologic: Denies headache(s) or paresthesias Psychiatric Psychiatric: Denies anxiety or depression Endocrine Endocrinology: Denies cold intolerance or heat intolerance Hematologic/Lymphatic Hematologic/Lymphatic: Denies easy bleeding or easy bruising EXAM Physical Exam Const Vital Signs: 05/08/25 18:06 05/08/25 18:27 05/08/25 18:45 Temperature 98.4 F Temperature Source Oral Pulse Rate 85 88 Respiratory Rate 36 H 21 H Respiratory Effort Short of Breath Blood Pressure 168/84 H Blood Pressure Mean 112 Pulse Ox 98 Oxygen Delivery Method Nasal Cannula Oxygen Flow Rate (L/min) 3 05/08/25 19:03 05/08/25 19:03 05/08/25 20:00 Temperature 98.4 F 98.2 F Temperature Source Oral Oral Pulse Rate 99 82 Respiratory Rate 24 H 18 Respiratory Effort Blood Pressure 156/108 H 156/108 H 154/67 H Blood Pressure Mean 124 124 96 Pulse Ox 99 97 Oxygen Delivery Method Nasal Cannula Nasal Cannula Oxygen Flow Rate (L/min) 3 3 Positive well nourished and well developed Constitutional Narrative: Patient is slightly tachypneic. There is minimal use of accessory muscles. There is no retractions. General Appearance ED: well developed; Negative for NAD or pallor HEENT Reports dry mucous membranes HEENT Narrative: Head is atraumatic and normocephalic. Ears normal. Nares patent. Posterior pharynx is normal Mouth ED: Yes dry mucous membranes Mouth: dry mucous membranes Eyes PERRL and EOMs intact bilaterally General Eye ED: Negative for pale conjunctiva or scleral icterus Neck no lymphadenopathy, supple, no meningeal signs and no JVD Resp No normal respiratory effort and No clear to auscultation bilaterally Resp Narrative: There is expiratory wheezing noted throughout. There is increased expiratory phase. There is diminished air movement bilaterally. Air movement is symmetric. Cardio regular rate, regular rhythm, S1 normal heart sound, S2 normal heart sound and no murmurs GI non-tender, non-distended and no masses Auscultation: normoactive bowel sounds Palpation: soft Extremity normal to inspection General Extremety ED: Negative for edema or tenderness General Extremity: Negative for edema Neuro oriented x3 and CN's II-XII intact bilaterally Sensorium / Orientation: alert Psych mental status grossly normal Skin no wounds General Skin Exam: Negative for jaundice or pallor MDM MDM MDM Narrative Medical decision making narrative: Differential diagnosis would include exacerbation COPD, pneumonia, pneumothorax, cardiac ischemia PE is not a consideration. Dissection is unlikely. Workup included EKG, chest x-ray and appropriate blood work. Lab Data Attestation: I reviewed the patient's lab results. Lab results narrative: Basic metabolic panel is remarkable slight elevation of glucose at 100. First troponin is elevated at 31. Labs: Laboratory Results - last 24 hr 05/08/25 05/08/25 18:15 20:30 WBC 5.0 RBC 4.51 Hgb 12.3 Hct 40.8 MCV 90.5 MCH 27.3 MCHC 30.1 L RDW Std Deviation 47.2 H RDW Coeff of Magno 14.0 Plt Count 216 MPV 10.4 Immature Gran % (Auto) 0.200 Neut % (Auto) 61.1 Lymph % (Auto) 25.8 [place] % (Auto) 9.7 Eos % (Auto) 2.6 Baso % (Auto) 0.6 Absolute Neuts (auto) 3.0 Absolute Lymphs (auto) 1.28 Nucleated RBC % 0 Sodium 141 Potassium 4.5 Chloride 102 Carbon Dioxide 28.9 Anion Gap 10 BUN 17 Creatinine 1.08 Estim Creat Clear Calc 49.83 L Est GFR (MDRD) Non-Af 55 L BUN/Creatinine Ratio 15.4 Glucose 100 H Calcium 9.0 Troponin T High Sens 31 H D Troponin T Hi Sens 2 Hr 29 H 2-hour troponin is 29 with a delta of -2. In light of patient's medical problems suspect this is due to her pulmonary hypertension. Will discharge to home. She was discharged with prescription for doxycycline and prednisone. Radiography Diagnostic Testing: Clinical Impression(s) from Imaging Studies Chest X-Ray 05/08/25 19:10 IMPRESSION: Mild pulmonary vascular congestion. No focal consolidation. [id number] Initial EKG: Attestation: I personally reviewed and interpreted this EKG as follows: Interpretation: Sinus Rhythm (Rate is 74. The EKG is normal. CA was 154 ms. Cures duration 72 ms. QT duration 372 ms. [place] is normal.) Treatment and Re-Evaluation :: Patient was reassessed at 1939 and 2119. She is in no distress. She was informed of her results. She was discharged to home. Discharge Plan Triage Chief Complaint: Shortness of Breath ED Provider: Madi Apodaca Dx/Rx/DC Orders Clinical Impression: Acute exacerbation of chronic obstructive pulmonary disease, Acute bronchospasm, Chronic respiratory failure with hypoxia, on home O2 therapy, Tachypnea, Elevated blood pressure reading with diagnosis of hypertension Instructions: ED COPD Flare Prescriptions: New prednisone 20 mg tablet 60 mg PO DAILY Qty: 12 0RF doxycycline monohydrate 100 mg capsule 100 mg PO BID Qty: 10 0RF No Action albuterol sulfate 2.5 mg /3 mL (0.083 %) solution for nebulization 2.5 mg inhalation Q4H PRN Qty: 25 0RF Rx Instructions: Use q4 hours and PRN for wheezing ipratropium-albuterol 0.5 mg-3 mg(2.5 mg base)/3 mL solution for nebulization 3 ml inhalation Q6H PRN (Reason: shortness of breath) Qty: 90 0RF lisinopril 20 mg tablet 20 mg PO DAILY 30 Days Qty: 30 0RF divalproex 250 mg tablet,delayed release (DR/EC) 250 mg PO BID metronidazole 500 mg tablet 500 mg PO Q6H buspirone 10 mg tablet 10 mg PO TID azithromycin 250 mg tablet 250 mg PO DAILY zolpidem 10 mg tablet 10 mg PO QHS PRN metoclopramide HCl 10 mg tablet 10 mg PO 4X/DAY mirtazapine 7.5 mg tablet 7.5 mg PO QHS gabapentin 400 mg capsule 400 mg PO Q6H ropinirole 2 mg tablet 2 mg PO QHS trazodone 150 mg tablet 150 mg PO QHS quetiapine 50 mg tablet 50 mg PO QHS albuterol sulfate 90 mcg/actuation HFA aerosol inhaler 2 puff inhalation Q6H PRN (Reason: shortness of breath or wheezing) Qty: 6.7 0RF Primary Care Provider: Daniele Salazar Chi Referrals: Daniele Salazar Chi, MD [Primary Care Provider] - 3-5 Days if not improving Print Language: Pashto Disposition Disposition: Home, Self Care
[2025-05-08 19:45] LABS: Hematocrit 40.8 % (37-47); Hemoglobin 12.3 g/dL (12.0-15.0); Immature Granulocytes Count 0.010 X10^3/uL (0.0-0.0); Mean Corp Hgb Conc 30.1 g/dL (32-36); Mean Corpuscular Volume 90.5 fL (81-99); Mean Platelet Vol. 10.4 fl (6.2-12.0); NRBC Flagged by Analyzer 0 % (0-5); Platelet Count 216 K/mm3 (150-450); RBC Distribution Width CV 14.0 % (11.6-14.6); RBC Distribution Width SD 47.2 fl (35.1-43.9); Red Blood Count 4.51 M/mm3 (4.2-5.4); White Blood Count 5.0 K/mm3 (4.4-11.0)
[2025-05-08 20:00] VITALS: BP 154/67; PULSE 82; RESP 18; TEMP 36.8; O2SAT 97
[2025-05-08 21:02] LABS: Troponin T High Sens 2 HR 29 ng/L (<=14)
[2025-05-08 21:29] VITALS: BP 154/65; PULSE 81; RESP 21; TEMP 37.1; O2SAT 96
== END 2025-05-08 21:47 | disposition home or self-care (01) ==
PROVIDERS: Emergency Provider Emergency Medicine; PCP Family Medicine Geriatric Medicine; Visit Provider Emergency Medicine
DX: J44.1 Chronic obstructive pulmonary disease with (acute) exacerbation (principal); J96.11 Chronic respiratory failure with hypoxia; J98.01 Acute bronchospasm; I10 Essential (primary) hypertension; F17.210 Nicotine dependence, cigarettes, uncomplicated; Z99.81 Dependence on supplemental oxygen; Z79.899 Other long term (current) drug therapy
CPT/HCPCS: 71046; 80048; 84484; 85025; 93005; 94640; 99285; A4216

== ENCOUNTER → 2025-06-05 | Outpatient (CLI) | payer MEDICARE, SELFPAY ==
[2025-06-05 15:15] LABS: Barbiturate Urine NEGATIVE (< 200 ng/mL); Benzodiazepine Urine NEGATIVE (< 200 ng/mL); PCP Urine NEGATIVE (< 25 ng/mL); THC Urine NEGATIVE (< 50 ng/mL)
== END | disposition home or self-care (01) ==
LOC: LAB 14:25
PROVIDERS: PCP Family Medicine Geriatric Medicine; Referring Provider Anesthesiology Pain Medicine; Visit Provider Anesthesiology Pain Medicine
DX: F11.20 Opioid dependence, uncomplicated (principal)
CPT/HCPCS: 80307

== ENCOUNTER → 2025-07-15 | Outpatient (CLI) | payer MEDICARE, SELFPAY ==
--- OUTSIDE RECORDS SUMMARY | 2025-07-15 08:52 | XMS RPT_ITS | CCD ---
Author Organization [facility] Care Team Providers Care Melting Operator Name Role Phone Dr. Wilver Gilbert DO [...] Donahue MD, Dr. Merlos Other Provider Unavailab yannick Staley MD, Dr. Zayas Attending Provider Godfrey MCGARRY, Dr. Merlos Attending Provider Ileana Staley MD, Dr. Zayas Other Provider Martin MCGARRY, Dr. Daniele Lunsford Primary Care Provider [phone] Martin MCGARRY, Dr. Daniele Lunsford Attending Provider [phone] Martin MCGARRY, Dr. Daniele Lunsford Referring Provider Martin MCGARRY, Dr. Daniele Lunsford Primary Care Provider [phone] Martin MCGARRY, Dr. Daniele Lunsford Attending Provider Martin MCGARRY, Dr. Daniele Lunsford Referring Provider [facility], Dr. [facility] Emergency Provider And DO, Dr. Solis Attending Provider Martin MCGARRY, Dr. Daniele Lunsford Primary Care Provider [phone] Martin MCGARRY, Dr. Daniele Lunsford Attending Provider Martin MCGARRY, Dr. Daniele Lunsford Referring Provider Paulie MCGARRY, Dr. Barraza Emergency Provider Martin MCGARRY, Dr. Daniele Lunsford Primary Care Physician Martin MCGARRY, Dr. Daniele Lunsford Attending Physician [facility], Dr. Sol[facility] Attending Physician [facility], Dr. Solis Emergency Department Physic lea Paulie MCGARRY, Dr. Barraza Attending Physician [phone] Paulie MCGARRY, Dr. Barraza Emergency Department Physician Martin, Daniele Chi Primary Care Unavailable Will Kaba Attending Unavailable Care Physician, No Primary Primary Care Unava ilable Reema Campuzano Attending Unavailable Care Physician, No Primary Primary Care Unava ilable Care Physician, No Primary Primary Care Unava ilable Macdonald, Melquiades Referring Unavailable Gladis Luna Attending Unavailable Gladis Luna Consulting Unavailable Gladis Luna Admitting Unavailable BasaliFrancesco Referring Unavailable Francesco Olmstead Attending Unavailable Martin, Daniele Chi Primary Care Unavailable Care Physician, No Primary Primary Care Unava ilable Wilver Gilbert Attending Unavailable Martin, Daniele Chi Primary Care Unavailable Madi Apodaca Attending Unavailable Care Physician, No Primary Primary Care Unava ilable Pako Fink Attending Unavailable Martin, Daniele Chi Primary Care Unavailable Martin, Daniele Chi Referring Unavailable Martin, Daniele Chi Attending Unavailable Karthik Rodrigues Attending Unavailable TerKarthik vaca Consulting Unavailable Martin, Daniele Chi Primary Care Unavailable Martin, Daniele Chi Referring Unavailable Martin, Daniele Chi Attending Unavailable Martin, Daniele Chi Primary Care Unavailable Martin, Daniele Chi Attending Unavailable Care Physician, No Primary Primary Care Unava ilable Gaurang Donahue Attending Unavailable Donahue, Rosaintya Admitting Unavailable Care Physician, No Primary Primary Care Unava ilable Chana Staley Attending Unavailable Donahue, Achintya Consulting Unavailable Chana Staley Consulting Unavailable Martin, Daniele Chi Attending Unavailable Martin, Daniele Chi Primary Care Unavailable Basali, Ayman Referring Unavailable Basali, Ayman Attending Unavailable Martin, Daniele Chi Primary Care Unavailable Martin, Daniele Chi Attending Unavailable Martin, Daniele Chi Primary Care Unavailable Donahue, Achintya Admitting Unavailable Care Physician, No Primary Primary Care Unava ilable Chana Staley Attending Unavailable Godfrey, Toanya Consulting Unavailable Care Physician, No Primary Primary Care Unava ilable Melquiades Macdonald Referring Unavailable Gladis Luna Consulting Unavailable Gladis Luna Admitting Unavailable Karthik Rodrigues Attending Unavailable Martin, Daniele Chi Primary Care Unavailable Martin, Daniele Chi Referring Unavailable Martin, Daniele Chi Attending Unavailable Medications Current Medications Medication Drug Class(es) Dates Sig (Normalized) Sig (Original) albuterol 0.833 mg/ml / ipratropium bromide 0.167 mg/ml inhalation solution (9 sources) Anticholinergic, beta2-Adrenergic Agonist Start: 10-14-2024 take 1 mL by inhalation every six hours as needed azithromycin 250 mg oral tablet (19 sources) Macrolide Antimicrobial Start: 05-08-2025 take 1 tablet by mouth once daily Start: 11-12-2024 End: 04-24-2025 take 1 tablet by mouth at bedtime Azithromycin 500 mg tablet Discontinued 500 mg PO AT BEDTIME 1 November 12, 2024 12:00am April 24, 2025 1:07am Start: 09-12-2024 End: 09-16-2024 take 1 tablet by mouth once daily Azithromycin 250 mg tablet Discontinued 250 mg PO DAILY 4 September 12, 2024 1:00am September 16, 2024 3:06pm busPIRone hydrochloride 10 mg oral tablet (4 sources) Start: 04-24-2025 take 1 tablet by mouth three times daily doxycycline monohydrate 100 mg oral capsule (2 sources) Tetracycline-class Drug Start: 05-08-2025 take 1 capsule by mouth twice daily gabapentin 400 mg oral capsule (9 sources) Anti-epileptic Agent Start: 09-14-2024 take 1 capsule by mouth every six hours lisinopril 20 mg oral tablet (17 sources) Angiotensin Converting Enzyme Inhibitor Start: 09-14-2024 End: 11-12-2024 take 1 tablet by mouth once daily metoclopramide 10 mg oral tablet (6 sources) Dopamine-2 Receptor Antagonist Start: 05-08-2025 take 1 tablet by mouth four times daily Start: 04-24-2025 End: 05-08-2025 take 1 tablet by mouth three times daily as needed for pain and nausea Metoclopramide Hcl (Reglan) 5 mg tablet Discontinued 5 mg PO 3 TIMES DAILY NEEDED as needed for abdominal pain and/or nausea 30 0 April 24, 2025 3:33am May 08, 2025 6:17pm metroNIDAZOLE 500 mg oral tablet (4 sources) Nitroimidazole Antimicrobial Start: 04-24-2025 take 1 tablet by mouth every six hours mirtazapine 7.5 mg oral tablet (2 sources) Start: 05-08-2025 take 1 tablet by mouth at bedtime predniSONE 20 mg oral tablet (20 sources) Start: 05-08-2025 take 3 tablets by mouth once daily Start: 11-12-2024 End: 04-24-2025 Prednisone 20 mg Tablet Disc ontinued 0 mg PO WITH BREAKFAST Taper: Frequency: BREAKFAST Days: 3 Hours: 0 Dose: 60 Frequency: BREAKFAST Days: 3 Hours: 0 Dose: 50 Frequency: BREAKFAST Days: 3 Hours: 0 Dose: 40 Frequency: BREAKFAST Days: 3 Hours: 0 Dose: 30 Frequency: BREAKFAST Days: 3 Hours: 0 Dose: 20 Frequency: BREAKFAST Days: 3 Hours: 0 Dose: 10 32 0 November 12, 2024 12:00am April 24, 2025 1:07am taper instructions on discharge instructions Please contact the information source for Taper Schedule details. Start: 10-14-2024 End: 11-10-2024 take 2 tablets by mouth once daily Prednisone 20 mg tablet Discontinued 40 mg PO DAILY 14 7 0 October 14, 2024 1:00am November 10, 2024 3:08pm Start: 09-16-2024 End: 11-10-2024 Prednisone 20 mg tablet Disc ontinued 20 mg PO DAILY September 16, 2024 1:00am November 10, 2024 [...] mg tablet Discontinued 60 mg PO DAILY September 12, 2024 1:00am September 14, 2024 2:52pm QUEtiapine 50 mg oral tablet (9 sources) Atypical Antipsychotic Start: 09-14-2024 take 1 tablet by mouth at bedtime rOPINIRole 2 mg oral tablet (9 sources) Nonergot Dopamine Agonist Start: 09-14-2024 take 1 tablet by mouth at bedtime traZODone hydrochloride 150 mg oral tablet (9 sources) Serotonin Reuptake Inhibitor Start: 09-14-2024 take 1 tablet by mouth at bedtime divalproex sodium 250 mg delayed release oral tablet (4 sources) Mood Stabilizer, Anti-epileptic Agent Start: 04-24-2025 take 1 tablet by mouth twice daily zolpidem tartrate 10 mg oral tablet (2 sources) gamma-Aminobutyric Acid-ergic Agonist Start: 05-08-2025 take 1 tablet by mouth at bedtime as needed Completed/Discontinued Medications Medication Drug Class(es) Dates Sig (Normalized) Sig (Original) [id number] 200 actuat albuterol 0.09 mg/actuat metered dose inhaler (20 sources) beta2-Adrenergic Agonist Start: 10-14-2024 End: 05-08-2025 Albuterol Sulfate (Ventolin Hfa) 90 mcg/actuation HFA aerosol inhaler Discontinued 1 - 2 NMA INHALATION EVERY 4 HOURS NEEDED as needed for Wheezing October 14, 2024 1:00am May 08, 2025 6:18pm Start: 09-16-2024 Start: 09-12-2024 take 2.5 mg by inhal ation every four hours as needed for wheezing amoxicillin 875 mg / clavulanate 125 mg oral tablet (8 sources) Penicillin-class Antibacterial Start: 11-12-2024 End: 04-24-2025 Amoxicillin-Pot Clavulanate 875-125 mg tablet Discontinued 1 {tbl} PO TWICE A DAY 5 2 0 November 12, 2024 12:00am April 24, 2025 1:05am ciprofloxacin 750 mg oral tablet (4 sources) Quinolone Antimicrobial Start: 04-24-2025 End: 05-08-2025 Ciprofloxacin Hcl 750 mg tablet Discontinued 750 mg PO Q12 April 24, 2025 12:00am May 08, 2025 6:18pm codeine phosphate 2 mg/ml / guaiFENesin 20 mg/ml oral solution (9 sources) Opioid Agonist Start: 09-16-2024 End: 04-24-2025 Codeine-Guaifenesin (Guaifenesin Ac) 10-100 mg/5 mL liquid Discontinued 10 mL PO EVERY 6 HOURS as needed for cough 237 1 September 16, 2024 5:25pm April 24, 2025 1:07am one or two teaspoons every six hours as needed for cough Fluticasone-Umeclidin -Vilanter (9 sources) Anticholinergic, Corticosteroid, beta2-Adrenergic Agonist Start: 09-14-2024 End: 04-24-2025 Fluticasone-Umeclidin- Vilanter (Trelegy Ellipta) 100-62.5-25 mcg blister with device Discontinued 1 NMA INHALATION DAILY September 14, 2024 1:00am April 24, 2025 1:05am Start: 09-14-2024 Fluticasone-Um eclidin-Vilanter (Trelegy Ellipta) 100-62.5-25 mcg blister with device Active 1 NMA INHALATION DAILY September 14, 2024 1:00am furosemide 40 mg oral tablet (9 sources) Loop Diuretic Start: 09-12-2024 End: 11-12-2024 take 1 tablet by mouth once daily Furosemide (Lasix) 40 mg tablet Discontinued 40 mg PO DAILY 7 0 September 12, 2024 1:00am November 12, 2024 12:11pm LORazepam 0.5 mg oral tablet (17 sources) Benzodiazepine Start: 09-14-2024 End: 04-24-2025 take 1 tablet by mouth every eight hours as needed for anxiety Lorazepam 0.5 mg tablet Discontinued 0.5 mg PO EVERY 8 HOURS NEEDED as needed for anxiety 9 3 0 November 12, 2024 12:12pm April 24, 2025 1:07am metFORMIN hydrochloride 500 mg oral tablet (9 sources) Biguanide Start: 09-14-2024 End: 04-24-2025 take 1 tablet by mouth once daily Metformin 500 mg tablet Discontinued 500 mg PO DAILY September 14, 2024 1:00am April 24, 2025 1:07am 24 hr nicotine 0.583 mg/hr transdermal system (9 sources) Cholinergic Nicotinic Agonist Start: 09-16-2024 End: 11-10-2024 apply 1 dose transdermal route every twenty-four hours Nicotine 14 mg/24 hr Patch 24 Hour Discontinued 14 mg TD DAILY 30 0 September 16, 2024 1:00am November 10, 2024 3:08pm traMADol hydrochloride 100 mg oral tablet (18 sources) Opioid Agonist Start: 09-16-2024 End: 11-10-2024 [...] Classification Problem Date Documented Da te Episodic/Chronic Abdominal pain (4 sources) Nonspecific abdominal pain; Translations: [Unspecified abdominal pain] 04-24-2025 Episodic Anxiety disorders (4 sources) Anxiety; Translations: [Anxiety disorder, unspecified] 04-24-2025 Chronic Chronic obstructive pulmonary disease and bronchiectasis (20 sources) Acute exacerbation of chronic obstructive airways disease; Translations: [Chronic obstructive pulmonary disease with (acute) exacerbation] Onset: 10-03-2024 09-20-2024 Chronic Diseases of white blood cells (14 sources) Leukocytosis; Translations: [Elevated white blood cell count, unspecified] Onset: 09-17-2024 09-20-2024 Chronic Disorders of lipid metabolism (1 source) Hyperlipidemia, unspecified; Translations: [Hyperlipidemia, unspecified] Onset: 12-26-2024 Chronic Essential hypertension (7 sources) Hypertensive disorder; Translations: [Essential (primary) hypertension] Onset: 04-28-2025 04-24-2025 Chronic Mood disorders (4 sources) Bipolar disorder; Translations: [Bipolar disorder, unspecified] 04-24-2025 Chronic Nonspecific chest pain (10 sources) Chest pain; Translations: [Chest pain, unspecified] Onset: 04-28-2025 10-22-2024 Episodic Other fractures (1 source) Collapsed vertebra, not elsewhere classified, lumbar region, initial encounter for fracture; Translations: [Collapsed vertebra, not elsewhere classified, lumbar region, initial encounter for fracture] Onset: 05-19-2025 Episodic Other lower respiratory disease (9 sources) Dyspnea; Translations: [Shortness of breath] 10-22-2024 Episodic Other lower respiratory disease (13 sources) Hypoxia; Translations: [Hypoxemia] 09-20-2024 Episodic Other lower respiratory disease (2 sources) Tachypnea; Translations: [Tachypnea, not elsewhere classified] 05-08-2025 Episodic Other lower respiratory disease (1 source) Shortness of breath; Translations: [Shortness of breath] Onset: 05-12-2025 Episodic Other upper respiratory disease (2 sources) Acute bronchospasm; Translations: [Acute bronchospasm] 05-08-2025 Episodic Residual codes; unclassified (13 sources) Peripheral edema; Translations: [Localized edema] 09-20-2024 Episodic Respiratory failure; insufficiency; arrest (adult) (2 sources) Chronic hypoxemic respiratory failure; Translations: [Chronic respiratory failure with hypoxia] 05-08-2025 Chronic Spondylosis; intervertebral disc disorders; other back problems (1 source) Radiculopathy, lumbar region; Translations: [Radiculopathy, lumbar region] Onset: 07-11-2025 Episodic Substance-related disorders (1 source) Opioid dependence, uncomplicated; Translations: [Opioid dependence, uncomplicated] Onset: 06-26-2025 Chronic Unclassified (4 sources) Call for an appointment [...] Episodic/Chronic Other lower respiratory disease (1 source) Hypoxemia; Translations: [Hypoxemia] Onset: 09-17-2024 Episodic Pneumonia (except that caused by tuberculosis or sexually transmitted disease) (14 sources) Pneumonia; Translations: [Pneumonia, unspecified organism] Onset: 11-12-2024 11-10-2024 Episodic Residual codes; unclassified (1 source) Localized edema; Translations: [Localized edema] Onset: 09-17-2024 Episodic Viral infection (14 sources) Respiratory syncytial virus infection; Translations: [Other specified viral diseases] Onset: 09-17-2024 09-20-2024 Episodic Results Test Name Value Interpretation Reference Range Facility L3410.9992on 06-09-2025 [facility] Misc. COMMENT Normal . [facility] Comment on above: Order Comment: [id number] 0MED TOX UR RMT Result Comment: Test Ordered: [id number] L10-Ipfzbr+JC4Eynsjpawaavu Screen, Urine Note: ng/mL UI See Final Results Reference Range: Tdbdqa=349Ctbchxrasqz test includes Amphetamine and Methamphetamine.Amphetamines Negative UI Reference Range: Lliwjd=696Egjfdrpnsxm test includes Amphetamine and Methamphetamine.Barbiturates Negative ng/mL UI Reference Range: Zbikre=007Ojszdtwrsmhrmgy Negative ng/mL UI Reference Range: Hmuszi=514Zvdkzrk (Metab.), Urine Negative ng/mL UI Reference Range: Vmdjaf=877Pufaetl Note: ng/mL UI See Final Results Reference Range: Zbzeqd=612Gdsnks test includes Codeine, Morphine, Hydromorphone, Hydrocodone.Opiates Positive [A ] UI Reference Range: Nuwpna=328Rdyhcd test includes Codeine, Morphine, Hydromorphone, Hydrocodone.Codeine Positive [A ] UI Reference Range: .Codeine Conf, MS, UR 1401 ng/mL UI Reference Range: Wbmjvd=390Aeghtqbx Positive [A ] UI Reference Range: .Morphine Conf, MS, UR 258 ng/mL UI Reference Range: Tqdaxu=248Slertjjrhaafb Negative UI Reference Range: Jharcg=602Dwffzbihuom Negative UI Reference Range: Kokmbn=5057-Hnxoxulvojgase, Urine Negative ng/mL UI Reference Range: Cutoff=10Oxycodone/Oxymorphone, Urine Negative ng/mL UI Reference Range: Juxlgg=919Umou includes Oxycodone and OxymorphonePCP, Urine Negative ng/mL UI Reference Range: Cutoff=25Methadone Screen, Urine Negative ng/mL UI Reference Range: Mtsrwo=341Jgamkzlcwnjq, Urine Negative ng/mL UI Reference Range: Shbsjx=635Lwhzmyvg, Urine Negative ng/mL UI Reference Range: Cutoff=2.0Test includes Fentanyl and NorfentanylThis test was developed and its performance characteristicsdetermined by [employer]. It has not been cleared orapproved by the Food and Drug Administration.Tramadol Negative ng/mL UI Reference Range: Nnuqcm=868Qsksvylgifnue, Urine Negative ng/mL UI Reference Range: Cutoff=10Creatinine, Urine 120.9 mg/dL UI Reference Range: 20.0-300.0pH, Urine 6.2 UI Reference Range: 4.5-8.9Performed at: [facility] [id number] [place], [place] [id number] Director: Nory Leal PhD, Phone: [phone] at: [address] [id number] Director: Vitaly Aguilera PhD, Phone: [phone] Performed By: #### L 3410.9992, L505.5000 ####[facility] [address] [place], [place], [id number] Urine Drug Screen (VISTA)on 06-05-2025 AMPHETAMINES Negative Normal <1000 ng/mL [facility] Comment on above: Order Comment: UNK Performed By: #### L 3410.9992, L505.5000 ####[facility] [address] [place], [place], [id number] BARBITIURATES Negative Normal < 200 ng/mL [facility] Comment on above: Order Comment: UNK Performed By: #### L 3410.9992, L505.5000 ####[facility] [address] [place], [place], [id number] BENZODIAZIPINE Negative Normal < 200 ng/mL [facility] Comment on above: Order Comment: UNK Performed By: #### L 3410.9992, L505.5000 ####[facility] [address] [place], [address] BUP Ur Drug Scr Negative Normal < 200 ng/mL [facility] Comment on above: Order Comment: UNK Performed By: #### L 3410.9992, L505.5000 ####[facility] [address] [facility] [address] COCAINE Negative Normal < 300 ng/mL [facility] Comment on above: Order Comment: UNK Performed By: #### L 3410.9992, L505.5000 ####[facility] [address] [place], [address] Fentanyl Negative Normal <5 ng/mL [facility] Comment on above: Order Comment: UNK Result Comment: CONF IRMATORY TESTING FOR ALL POSITIVE URINE DRUG SCREENRESULTS WILL ONLY BE SENT OUT UPON PHYSICIAN ORDER.Larry Pro Urine Drug Screen methods provide only preliminaryanalytical test results. A more specific alternate chemicalmethod must be used in order to obtain a confirmedanalytical result. Gas chromatography/mass spectrometery(GC/MS) is the preferred confirmatory method. Clinicalconsideration and professional judgement should be appliedto any drug of abuse test result, particularly whenpreliminary positive results are used.Urine TCA testing must be ordered separately. Use testmnemonic: [facility] Performed By: #### L 3410.9992, L505.5000 ####[facility] [address] [place], [address] METHADONE Negative Normal < 300 ng/mL [facility] Comment on above: Order Comment: UNK Performed By: #### L 3410.9992, L505.5000 ####[facility] [address] [place], [address] OPIATES Positive Normal < 300 ng/mL [facility] Comment on above: Order Comment: UNK Result Comment: If c onfirmation testing is needed, a separate order will berequired to send out testing to the reference laboratory. Performed By: #### L 3410.9992, L505.5000 ####[facility] [address] [place], [address] OXYCODONE Negative Normal < 100 ng/mL [facility] Comment on above: Order Comment: UNK Performed By: #### L 3410.9992, L505.5000 ####[facility] [address] [place], [address] PCP Negative Normal < 25 ng/mL [facility] Comment on above: Order Comment: UNK Performed By: #### L 3410.9992, L505.5000 ####[facility] [address] [place], [address] THC Negative Normal < 50 ng/mL [facility] Comment on above: Order Comment: UNK Performed By: #### L 3410.9992, L505.5000 ####[facility] [address] [place], [address] 12 Lead EKGon 05-08-2025 12 Lead EKG Normal [facility] Absolute lymphocyte countOrd ered By: Madi Apodaca on 05-08-2025 Lymphocytes Auto (Unsp spec) [#/Vol] 1.28 10*3/uL 0.83-4.51 [facility] Absolute neutrophil countOrd ered By: [facility] on 05-08-2025 Neutrophils (Bld) [#/Vol] 3.0 10*3/uL 2.0-7.7 [facility] Anion gap in Serum or Plasma Ordered By: Madi Apodaca on 05-08-2025 Anion gap [Moles/Vol] 10 mmol/L 5-15 [facility] Automated lymphocyte count a s percentage of total leukocytesOrdered By: Madimatt Apodaca on 05-08-2025 Lymphocytes/100 WBC Auto (Unsp spec) 25.8 % 19-41 [facility] BUN/creatinine ratioOrdered By: Madi Ordazo on 05-08-2025 Urea nitrogen/Creatinine [Mass ratio] 15.4 mg/mg - [facility] Basic Metabolic Profile (BMP )on 05-08-2025 BUN/CRE 15.4 RATIO Normal - [facility] Comment on above: Performed By: #### L 500.2500, L501.4021, L100.0100 ####[facility] [address] [place], [address] Calcium [Mass/Vol] 9.0 mg/dL Normal 7.6-11.0 [facility] Comment on above: Performed By: #### L 500.2500, L501.4021, L100.0100 ####[facility] [address] [place], [address] Chloride [Moles/Vol] 102 mmol/L Normal 98-108 [facility] Comment on above: Performed By: #### L 500.2500, L501.4021, L100.0100 ####[facility] [address] [place], [address] CO2 [Moles/Vol] 28.9 mmol/L Normal 21.0-32.0 [facility] Comment on above: Performed By: #### L 500.2500, L501.4021, L100.0100 ####[facility] [address] [place], [address] Creatinine [Mass/Vol] 1.08 mg/dL Normal 0.70-1.20 [facility] Comment on above: Performed By: #### L 500.2500, L501.4021, L100.0100 ####[facility] [address] [place], [address] ECRCL 49.83 ml/min Low 50-250 [facility] Comment on above: Performed By: #### L 500.2500, L501.4021, L100.0100 ####[facility] [address] [place], [address] GAP 10 Normal 5-15 [facility] Comment on above: Performed By: #### L 500.2500, L501.4021, L100.0100 ####[facility] [address] [place], [address] GFR/1.73 sq M.predicted among non-blacks MDRD (S/P/Bld) [Vol rate/Area] 55 mL/min/{1.73_m2} Low >60 [facility] Comment on above: Result Comment: mL/m in/1.73m2 CKD-EPI Creatinine Equation (2020) Performed By: #### L 500.2500, L501.4021, L100.0100 ####[facility] [address] [place], [address] Glucose [Mass/Vol] 100 mg/dL High 70-99 [facility] Comment on above: Performed By: #### L 500.2500, L501.4021, L100.0100 ####[facility] [address] [place], [address] Potassium [Moles/Vol] 4.5 mmol/L Normal 3.3-5.1 [facility] Comment on above: Performed By: #### L 500.2500, L501.4021, L100.0100 ####[facility] [address] [place], [address] Sodium [Moles/Vol] 141 mmol/L Normal 133-145 [facility] Comment on above: Performed By: #### L 500.2500, L501.4021, L100.0100 ####[facility] [address] [place], [address] Urea nitrogen [Mass/Vol] 17 mg/dL Normal 4-19 [facility] Comment on above: Performed By: #### L 500.2500, L501.4021, L100.0100 ####[facility] [address] [place], [address] Basophil percentageOrdered B y: Madi Apodaca on 05-08-2024 Basophils/100 WBC (Bld) 0.6 % 0-1 [facility] [facility] CBC W/Diff, Automatedon Absolute Lymph 1.28 X10 3/uL Normal 0.83-4.51 [facility] Comment on above: Performed By: #### L 500.2500, L501.4021, L100.0100 ####[facility] [address] [place], [address] Absolute Neut 3.0 X10 3/uL Normal 2.0-7.7 [facility] Comment on above: Performed By: #### L 500.2500, L501.4021, L100.0100 ####[facility] [address] [place], [address] Basophils/100 WBC (Bld) 0.6 % Normal 0-1 [facility] Comment on above: Performed By: #### L 500.2500, L501.4021, L100.0100 ####[facility] [address] [place], [address] Eosinophils/100 WBC (Bld) 2.6 % Normal 0-5 [facility] Comment on above: Performed By: #### L 500.2500, L501.4021, L100.0100 ####[facility] [address] [place], [address] Erythrocyte distribution width (RBC) [Ratio] 14.0 % Normal 11.6-14.6 [facility] Comment on above: Performed By: #### L 500.2500, L501.4021, L100.0100 ####[facility] [address] [place], [address] Hematocrit (Bld) [Volume fraction] 40.8 % Normal 37-47 [facility] Comment on above: Performed By: #### L 500.2500, L501.4021, L100.0100 ####[facility] [address] [place], [address] Hemoglobin (Bld) [Mass/Vol] 12.3 g/dL Normal 12.0-15.0 [facility] Comment on above: Performed By: #### L 500.2500, L501.4021, L100.0100 ####[facility] [address] [place], [address] IG% 0.200 Normal 0.0-0.9 [facility] Comment on above: Result Comment: IG% - Immature Granulocytes (promyelocytes, myelocytes andmetamyelocytes) > 1% indicates that a LEFT SHIFT is Present. Performed By: #### L 500.2500, L501.4021, L100.0100 ####[facility] [address] [place], [address] Lymphocytes/100 WBC (Bld) 25.8 % Normal 19-41 [facility] Comment on above: Performed By: #### L 500.2500, L501.4021, L100.0100 ####[facility] [address] [place], [address] MCH (RBC) [Entitic mass] 27.3 pg Normal 27.0-32.0 [facility] Comment on above: Performed By: #### L 500.2500, L501.4021, L100.0100 ####[facility] [address] [place], [address] MCHC (RBC) [Mass/Vol] 30.1 g/dL Low 32-36 [facility] Comment on above: Performed By: #### L 500.2500, L501.4021, L100.0100 ####[facility] [address] [place], [address] MCV (RBC) [Entitic vol] 90.5 fL Normal 81-99 [facility] Comment on above: Performed By: #### L 500.2500, L501.4021, L100.0100 ####[facility] [address] [place], [address] Monocytes/100 WBC (Bld) 9.7 % Normal 0-10 [facility] Comment on above: Performed By: #### L 500.2500, L501.4021, L100.0100 ####[facility] [address] [place], [address] Neutrophils/100 WBC (Bld) 61.1 % Normal 47-70 [facility] Comment on above: Performed By: #### L 500.2500, L501.4021, L100.0100 ####[facility] [address] [place], [address] Nucleated RBC (Bld) [#/Vol] 0 10*3/uL Normal 0-5 [facility] Comment on above: Performed By: #### L 500.2500, L501.4021, L100.0100 ####[facility] [address] [place], [address] Platelet mean volume (Bld) [Entitic vol] 10.4 fL Normal 6.2-12.0 [facility] Comment on above: Performed By: #### L 500.2500, L501.4021, L100.0100 ####[facility] [address] [place], [address] Platelets (Bld) [#/Vol] 216 10*3/uL Normal 150-450 [facility] Comment on above: Performed By: #### L 500.2500, L501.4021, L100.0100 ####[facility] [address] [place], [address] RBC (Bld) [#/Vol] 4.51 10*6/uL Normal 4.2-5.4 [facility] Comment on above: Performed By: #### L 500.2500, L501.4021, L100.0100 ####[facility] [address] [place], [address] RDW SD 47.2 fl High 35.1-43.9 [facility] Comment on above: Performed By: #### L 500.2500, L501.4021, L100.0100 ####[facility] [address] [place], [address] WBC (Bld) [#/Vol] 5.0 10*3/uL Normal 4.4-11.0 [facility] Comment on above: Performed By: #### L 500.2500, L501.4021, L100.0100 ####[facility] [address] [place], [address] Carbon dioxide, total [Moles /volume] in Central venous bloodOrdered By: Madi Apodaca on 05-08-2025 CO2 [Moles/Vol] 28.9 mmol/L 21.0-32.0 [facility] Chest PA and Lateralon 05-08 Chest PA and Lateral Normal [facility] Chloride assayOrdered By: Ug o Apodaca on 05-08-2025 Chloride [Moles/Vol] 102 mmol/L 98-108 [facility] Emergency Department Summary on 05-08-2025 Emergency Department Summary Normal [facility] Eosinophil percentageOrdered By: Madi Apodaca on 05-08-2025 Eosinophils/100 WBC (Bld) 2.6 % 0-5 [facility] Erythrocyte distribution wid th ratioOrdered By: Madi Apodaca on 05-08-2025 Erythrocyte distribution width (RBC) [Ratio] 14.0 % 11.6-14.6 [facility] Erythrocyte distribution wid th standard deviationOrdered By: Madi Apodaca on 05-08-2025 Erythrocyte distribution width (RBC) [Ratio] 47.2 fl High 35.1-43.9 [facility] Glomerular filtration rate ( GFR) estimation/1.73 sq m using serum, plasma, or whole bOrdered By: Madimatt Apodaca on 05-08-2025 GFR/1.73 sq M.predicted among non-blacks MDRD (S/P/Bld) [Vol rate/Area] 55 mL/min/{1.73_m2} Low >60 [facility] Comment on above: mL/min/1.73m2 CKD-EP I Creatinine Equation (2020) Hematocrit Auto (Bld) [Volum e fraction]Ordered By: Madi Apodaca on 05-08-2025 Hematocrit (Bld) [Volume fraction] 40.8 % 37-47 [facility] Hemoglobin measurementOrdere d By: [facility] on 05-08-2025 Hemoglobin (Bld) [Mass/Vol] 12.3 g/dL 12.0-15.0 [facility] Immature granulocytes/100 WB C Auto (Bld)Ordered By: [facility] on 05-08-2025 Immature granulocytes/100 WBC (Bld) 0.200 % 0.0-0.9 [facility] Comment on above: IG% - Immature Granu locytes (promyelocytes, myelocytes and metamyelocytes) > 1% indicates that a LEFT SHIFT is Present. L501.4021on 05-08-2025 Trop T High Sen 31 ng/L High <=14 [facility] Comment on above: Performed By: #### L 500.2500, L501.4021, L100.0100 ####[facility] [address] [place], [address] MCV (mean corpuscular volume ) determinationOrdered By: Madimatt Apodaca on 05-08-2025 MCV (RBC) [Entitic vol] 90.5 fL 81-99 [facility] Mean corpuscular hemoglobin (MCH) determinationOrdered By: [facility] on 05-08-2025 MCH (RBC) [Entitic mass] 27.3 pg 27.0-32.0 [facility] Mean corpuscular hemoglobin concentration (MCHC) determinationOrdered By: Madi Apodaca on 05-08-2025 MCHC (RBC) [Mass/Vol] 30.1 g/dL Low 32-36 [facility] Mean platelet volume determi nationOrdered By: Madi Apodaca on 05-08-2025 Platelet mean volume (Bld) [Entitic vol] 10.4 fL 6.2-12.0 [facility] Monocyte percentageOrdered B y: Madi Apodaca on 05-08-2025 Monocytes/100 WBC (Bld) 9.7 % 0-10 [facility] Neutrophil percentageOrdered By: Madi Apodaca on 05-08-2025 Neutrophils/100 WBC (Bld) 61.1 % 47-70 [facility] Nucleated red blood cell per centageOrdered By: Madi Apodaca on 05-08-2025 Nucleated RBC/100 WBC (Bld) [Ratio] 0 % 0-5 [facility] Platelet countOrdered By: Stan Apodaca on 05-08-2025 Platelets (Bld) [#/Vol] 216 10*3/uL 150-450 [facility] Potassium measurement (mass/ volume)Ordered By: Madi Apodaca on 05-08-2025 Potassium (Unsp spec) [Mass/Vol] 4.5 mmol/L 3.3-5.1 [facility] RBC Auto (Bld) [#/Vol]Ordere d By: Madi Apodaca on 05-08-2025 RBC (Bld) [#/Vol] 4.51 10*6/uL 4.2-5.4 [facility] Serum creatinine measurement (mass/volume)Ordered By: Madi Apodaca on 05-08-2025 Creatinine [Mass/Vol] 1.08 mg/dL 0.70-1.20 [facility] Serum glucose measurement (m ass/volume)Ordered By: Madi Apodaca on 05-08-2025 Glucose [Mass/Vol] 100 mg/dL High 70-99 [facility] Serum or plasma calcium yovani urement (mass/volume)Ordered By: Madi Apodaca on 05-08-2025 Calcium [Mass/Vol] 9.0 mg/dL 7.6-11.0 [facility] Serum or plasma urea nitroge n measurement (mass/volume)Ordered By: Madi Apodaca on 05-08-2025 Urea nitrogen [Mass/Vol] 17 mg/dL 4-19 [facility] Sodium levelOrdered By: Madi Apodaca on 05-08-2025 Sodium [Moles/Vol] 141 mmol/L 133-145 [facility] Troponin T HS 2 HRon 025 Trop T High Sen 29 ng/L High <=14 [facility] Comment on above: Performed By: #### L 499.0042 ####[facility] [address] [place], [place], [address] Troponin T HS 4 HRon 025 Trop T High Sen Normal <=14 [facility] Comment on above: Result Comment: Canc elled via OM: Order cancelled - Patient discharged Performed By: #### L 499.0043 ####[facility] [address] [place], [place], [address] Troponin T.cardiac [Mass/vol ume] in Serum or Plasma by High sensitivity methodOrdered By: Madi Apodaca on 05-08-2025 Troponin T.cardiac High sensitivity method [Mass/Vol] 29 ng/L High <14 [facility] Troponin T.cardiac High sensitivity method [Mass/Vol] 31 ng/L High <14 [facility] Comment on above: Delta: 28 on 5-1036 White blood cell (WBC) count Ordered By: Madi Apodaca on 05-08-2025 WBC (Bld) [#/Vol] 5.0 10*3/uL 4.4-11.0 [facility] L/S Spine Min 4 Viewson L/S Spine Min 4 Views Normal [facility] 12 Lead EKGon 04-24-2025 12 Lead EKG Normal [facility] Abdomen/Pelvis W IV Cont ONL Yon 04-24-2025 Abdomen/Pelvis W IV Cont ONLY Normal [facility] Absolute lymphocyte countOrd ered By: Will Kaba on 04-24-2025 Lymphocytes Auto (Unsp spec) [#/Vol] 2.31 10*3/uL 0.83-4.51 [facility] Absolute neutrophil countOrd ered By: Will Kaba on 04-24-2025 Neutrophils (Bld) [#/Vol] 6.6 10*3/uL 2.0-7.7 [facility] Anion gap in Serum or Plasma Ordered By: Will Kaba on 04-24-2025 Anion gap [Moles/Vol] 14 mmol/L 01-12 [facility] Automated lymphocyte count a s percentage of total leukocytesOrdered By: Will Kaba on 04-24-2025 Lymphocytes/100 WBC Auto (Unsp spec) 23.4 % [facility] BUN/creatinine ratioOrdered By: Will Kaba on 04-24-2025 Urea nitrogen/Creatinine [Mass ratio] 12.2 mg/mg 06-19 [facility] Basic Metabolic Profile (BMP )on 04-24-2025 BUN/CRE 12.2 RATIO Normal 06-19 [facility] Comment on above: Performed By: #### L 500.2500, L501.2450, L503.6005, L500.3400, L100.0100 ####[facility] [address] [place], [address] Calcium [Mass/Vol] 9.2 mg/dL Normal 7.6-11.0 [facility] Comment on above: Performed By: #### L 500.2500, L501.2450, L503.6005, L500.3400, L100.0100 ####[facility] [address] [place], [address] Chloride [Moles/Vol] 104 mmol/L Normal 98-108 [facility] Comment on above: Performed By: #### L 500.2500, L501.2450, L503.6005, L500.3400, L100.0100 ####[facility] [address] [place], [address] CO2 [Moles/Vol] 22.9 mmol/L Normal 21.0-32.0 [facility] Comment on above: Performed By: #### L 500.2500, L501.2450, L503.6005, L500.3400, L100.0100 ####[facility] [address] [place], [address] Creatinine [Mass/Vol] 1.27 mg/dL High 0.70-1.20 [facility] Comment on above: Performed By: #### L 500.2500, L501.2450, L503.6005, L500.3400, L100.0100 ####[facility] [address] [place], [address] ECRCL 41.11 ml/min Low 50-250 [facility] Comment on above: Performed By: #### L 500.2500, L501.2450, L503.6005, L500.3400, L100.0100 ####[facility] [address] [place], [address] GAP 14 Normal 5-15 [facility] Comment on above: Performed By: #### L 500.2500, L501.2450, L503.6005, L500.3400, L100.0100 ####[facility] [address] [place], [address] GFR/1.73 sq M.predicted among non-blacks MDRD (S/P/Bld) [Vol rate/Area] 45 mL/min/{1.73_m2} Low >60 [facility] Comment on above: Result Comment: mL/m in/1.73m2 CKD-EPI Creatinine Equation (2020) Performed By: #### L 500.2500, L501.2450, L503.6005, L500.3400, L100.0100 ####[facility] [address] [place], [address] Glucose [Mass/Vol] 107 mg/dL High 70-99 [facility] Comment on above: Performed By: #### L 500.2500, L501.2450, L503.6005, L500.3400, L100.0100 ####[facility] [address] [place], [address] Potassium [Moles/Vol] 3.6 mmol/L Normal 3.3-5.1 [facility] Comment on above: Performed By: #### L 500.2500, L501.2450, L503.6005, L500.3400, L100.0100 ####[facility] [address] [place], [address] Sodium [Moles/Vol] 141 mmol/L Normal 133-145 [facility] Comment on above: Performed By: #### L 500.2500, L501.2450, L503.6005, L500.3400, L100.0100 ####[facility] [address] [place], [address] Urea nitrogen [Mass/Vol] 16 mg/dL Normal 4-19 [facility] Comment on above: Performed By: #### L 500.2500, L501.2450, L503.6005, L500.3400, L100.0100 ####[facility] [address] [place], [address] Basophil percentageOrdered B y: Will Kaba on 04-24-2025 Basophils/100 WBC (Bld) 0.4 % 0-1 [facility] Bilirubin directOrdered By: Will Kaba on 04-24-2025 Bilirubin.direct [Mass/Vol] 0.14 mg/dL 0.00-0.30 [facility] Bilirubin, totalOrdered By: Will Kaba on 04-24-2025 Bilirubin [Mass/Vol] 0.29 mg/dL 0.00-1.30 [facility] CBC W/Diff, Automatedon 04-01 Absolute Lymph 2.31 X10 3/uL Normal 0.83-4.51 [facility] Comment on above: Performed By: #### L 500.2500, L501.2450, L503.6005, L500.3400, L100.0100 ####[facility] [address] [place], [address] Absolute Neut 6.6 X10 3/uL Normal 2.0-7.7 [facility] Comment on above: Performed By: #### L 500.2500, L501.2450, L503.6005, L500.3400, L100.0100 ####[facility] [address] [place], [address] Basophils/100 WBC (Bld) 0.4 % Normal 0-1 [facility] Comment on above: Performed By: #### L 500.2500, L501.2450, L503.6005, L500.3400, L100.0100 ####[facility] [address] [place], [address] Eosinophils/100 WBC (Bld) 2.1 % Normal 0-5 [facility] Comment on above: Performed By: #### L 500.2500, L501.2450, L503.6005, L500.3400, L100.0100 ####[facility] [address] [place], [address] Erythrocyte distribution width (RBC) [Ratio] 14.0 % Normal 11.6-14.6 [facility] Comment on above: Performed By: #### L 500.2500, L501.2450, L503.6005, L500.3400, L100.0100 ####[facility] [address] [place], [address] Hematocrit (Bld) [Volume fraction] 40.6 % Normal 37-47 [facility] Comment on above: Performed By: #### L 500.2500, L501.2450, L503.6005, L500.3400, L100.0100 ####[facility] [address] [place], [address] Hemoglobin (Bld) [Mass/Vol] 13.2 g/dL Normal 12.0-15.0 [facility] Comment on above: Performed By: #### L 500.2500, L501.2450, L503.6005, L500.3400, L100.0100 ####[facility] [address] [place], [address] IG% 0.200 Normal 0.0-0.9 [facility] Comment on above: Result Comment: IG% - Immature Granulocytes (promyelocytes, myelocytes andmetamyelocytes) > 1% indicates that a LEFT SHIFT is Present. Performed By: #### L 500.2500, L501.2450, L503.6005, L500.3400, L100.0100 ####[facility] [address] [place], [address] Lymphocytes/100 WBC (Bld) 23.4 % Normal 19-41 [facility] Comment on above: Performed By: #### L 500.2500, L501.2450, L503.6005, L500.3400, L100.0100 ####[facility] [address] [place], [address] MCH (RBC) [Entitic mass] 27.9 pg Normal 27.0-32.0 [facility] Comment on above: Performed By: #### L 500.2500, L501.2450, L503.6005, L500.3400, L100.0100 ####[facility] [address] [place], [address] MCHC (RBC) [Mass/Vol] 32.5 g/dL Normal 32-36 [facility] Comment on above: Performed By: #### L 500.2500, L501.2450, L503.6005, L500.3400, L100.0100 ####[facility] [address] [place], [address] MCV (RBC) [Entitic vol] 85.8 fL Normal 81-99 [facility] Comment on above: Performed By: #### L 500.2500, L501.2450, L503.6005, L500.3400, L100.0100 ####[facility] [address] [place], [address] Monocytes/100 WBC (Bld) 6.6 % Normal 0-10 [facility] Comment on above: Performed By: #### L 500.2500, L501.2450, L503.6005, L500.3400, L100.0100 ####[facility] [address] [place], [address] Neutrophils/100 WBC (Bld) 67.3 % Normal 47-70 [facility] Comment on above: Performed By: #### L 500.2500, L501.2450, L503.6005, L500.3400, L100.0100 ####[facility] [address] [place], [address] Nucleated RBC (Bld) [#/Vol] 0 10*3/uL Normal 0-5 [facility] Comment on above: Performed By: #### L 500.2500, L501.2450, L503.6005, L500.3400, L100.0100 ####[facility] [address] [place], [address] Platelet mean volume (Bld) [Entitic vol] 11.2 fL Normal 6.2-12.0 [facility] Comment on above: Performed By: #### L 500.2500, L501.2450, L503.6005, L500.3400, L100.0100 ####[facility] [address] [place], [address] Platelets (Bld) [#/Vol] 225 10*3/uL Normal 150-450 [facility] Comment on above: Performed By: #### L 500.2500, L501.2450, L503.6005, L500.3400, L100.0100 ####[facility] [address] [place], [address] RBC (Bld) [#/Vol] 4.73 10*6/uL Normal 4.2-5.4 [facility] Comment on above: Performed By: #### L 500.2500, L501.2450, L503.6005, L500.3400, L100.0100 ####[facility] [address] [place], [address] RDW SD 43.8 fl Normal 35.1-43.9 [facility] Comment on above: Performed By: #### L 500.2500, L501.2450, L503.6005, L500.3400, L100.0100 ####[facility] [address] [place], [address] WBC (Bld) [#/Vol] 9.9 10*3/uL Normal 4.4-11.0 [facility] Comment on above: Performed By: #### L 500.2500, L501.2450, L503.6005, L500.3400, L100.0100 ####[facility] [address] [place], [address] Carbon dioxide, total [Moles /volume] in Central venous bloodOrdered By: Will Kaba on 04-24-2025 CO2 [Moles/Vol] 22.9 mmol/L 21.0-32.0 [facility] Chloride assayOrdered By: Sherron Kaba on 04-24-2025 Chloride [Moles/Vol] 104 mmol/L 98-108 [facility] Emergency Department Summary on 04-24-2025 Emergency Department Summary Normal [facility] Eosinophil percentageOrdered By: Will Kaba on 04-24-2025 Eosinophils/100 WBC (Bld) 2.1 % 0-5 [facility] Erythrocyte distribution wid th ratioOrdered By: Will Kaba on 04-24-2025 Erythrocyte distribution width (RBC) [Ratio] 14.0 % 11.6-14.6 [facility] Erythrocyte distribution wid th standard deviationOrdered By: Will Kaba on 04-24-2025 Erythrocyte distribution width (RBC) [Ratio] 43.8 fl 35.1-43.9 [facility] Glomerular filtration rate ( GFR) estimation/1.73 sq m using serum, plasma, or whole bOrdered By: Will Kaba on 04-24-2025 GFR/1.73 sq M.predicted among non-blacks MDRD (S/P/Bld) [Vol rate/Area] 45 mL/min/{1.73_m2} Low >60 [facility] Comment on above: mL/min/1.73m2 CKD-EP I Creatinine Equation (2020) Hematocrit Auto (Bld) [Volum e fraction]Ordered By: Will Kaba on 04-24-2025 Hematocrit (Bld) [Volume fraction] 40.6 % 37-47 [facility] Hemoglobin measurementOrdere d By: Will Kaba on 04-24-2025 Hemoglobin (Bld) [Mass/Vol] 13.2 g/dL 12.0-15.0 [facility] Immature granulocytes/100 WB C Auto (Bld)Ordered By: Will Kaba on 04-24-2025 Immature granulocytes/100 WBC (Bld) 0.200 % 0.0-0.9 [facility] Comment on above: IG% - Immature Granu locytes (promyelocytes, myelocytes and metamyelocytes) > 1% indicates that a LEFT SHIFT is Present. Laboratory - Chemistry and C hemistry - challengeOrdered By: Will Kaba on 04-24-2025 AST [Catalytic activity/Vol] 26 U/L <32 [facility] Lactic Acidon 04-24-2025 Lactate [Moles/Vol] 1.1 mmol/L Normal 0.0-2.0 [facility] Comment on above: Order Comment: Y Performed By: #### L 500.2500, L501.2450, L503.6005, L500.3400, L100.0100 ####[facility] [address] [place], [place], [id number] Lactic acid measurementOrder ed By: Will Kaba on 04-24-2025 Lactate [Moles/Vol] 1.1 mmol/L 0.0-2.0 [facility] Lipaseon 04-24-2025 Lipase [Catalytic activity/Vol] 40 U/L Normal 13-75 [facility] Comment on above: Result Comment: Sergey jack note:LIPASE revised reference range effective 22.New Lipase methodology. Expected to produce lower valuesthan the previous assay method.NEW Reference Range: 13 - 75 U/L Performed By: #### L 500.2500, L501.2450, L503.6005, L500.3400, L100.0100 ####[facility] [address] [place], [address] Lipase measurementOrdered By : Will Kaba on 04-24-2025 Lipase [Catalytic activity/Vol] 40 U/L 13-75 [facility] Comment on above: Please note:LIPASE r evised reference range effective 22. New Lipase methodology. Expected to produce lower values than the previous assay method. NEW Reference Range: 13 - 75 U/L Liver Profileon 04-24-2025 Albumin [Mass/Vol] 4.2 g/dL Normal 3.4-4.8 [facility] Comment on above: Performed By: #### L 500.2500, L501.2450, L503.6005, L500.3400, L100.0100 ####[facility] [address] [place], [place], [phone] ALK PHOS 75 U/L Normal 35-104 [facility] Comment on above: Performed By: #### L 500.2500, L501.2450, L503.6005, L500.3400, L100.0100 ####[facility] [address] [place], [address] ALT [Catalytic activity/Vol] 10 U/L Normal <=34 [facility] Comment on above: Performed By: #### L 500.2500, L501.2450, L503.6005, L500.3400, L100.0100 ####[facility] [address] [place], [address] AST [Catalytic activity/Vol] 26 U/L Normal <=31 [facility] Comment on above: Performed By: #### L 500.2500, L501.2450, L503.6005, L500.3400, L100.0100 ####[facility] [address] [place], [address] Bilirubin [Mass/Vol] 0.29 mg/dL Normal 0.00-1.30 [facility] Comment on above: Performed By: #### L 500.2500, L501.2450, L503.6005, L500.3400, L100.0100 ####[facility] [address] [place], [address] Bilirubin.direct [Mass/Vol] 0.14 mg/dL Normal 0.00-0.30 [facility] Comment on above: Performed By: #### L 500.2500, L501.2450, L503.6005, L500.3400, L100.0100 ####[facility] [address] [place], [address] Globulin (S) [Mass/Vol] 2.8 g/dL Normal 2.2-4.2 [facility] Comment on above: Performed By: #### L 500.2500, L501.2450, L503.6005, L500.3400, L100.0100 ####[facility] [address] [place], [address] T PROT 7.0 g/dL Normal 5.9-8.4 [facility] Comment on above: Performed By: #### L 500.2500, L501.2450, L503.6005, L500.3400, L100.0100 ####[facility] [address] [place], [address] MCV (mean corpuscular volume ) determinationOrdered By: Will aguilar 04-24-2025 MCV (RBC) [Entitic vol] 85.8 fL 81-99 [facility] Mean corpuscular hemoglobin (MCH) determinationOrdered By: Will Kaba on 04-24-2025 MCH (RBC) [Entitic mass] 27.9 pg 27.0-32.0 [facility] Mean corpuscular hemoglobin concentration (MCHC) determinationOrdered By: Will Kaba on 04-24-2025 MCHC (RBC) [Mass/Vol] 32.5 g/dL 32-36 [facility] Mean platelet volume determi nationOrdered By: Will Kaba on 04-24-2025 Platelet mean volume (Bld) [Entitic vol] 11.2 fL 6.2-12.0 [facility] Monocyte percentageOrdered B y: Will Kaba on 04-24-2025 Monocytes/100 WBC (Bld) 6.6 % 0-10 [facility] Neutrophil percentageOrdered By: Will Kaba on 04-24-2025 Neutrophils/100 WBC (Bld) 67.3 % 47-70 [facility] Nucleated red blood cell per centageOrdered By: Will Kaba on 04-24-2025 Nucleated RBC/100 WBC (Bld) [Ratio] 0 % 0-5 [facility] Platelet countOrdered By: Sherron Kaba on 04-24-2025 Platelets (Bld) [#/Vol] 225 10*3/uL 150-450 [facility] Potassium measurement (mass/ volume)Ordered By: Will Kaba on 04-24-2025 Potassium (Unsp spec) [Mass/Vol] 3.6 mmol/L 3.3-5.1 [facility] RBC Auto (Bld) [#/Vol]Ordere d By: Will Kaba on 04-24-2025 RBC (Bld) [#/Vol] 4.73 10*6/uL 4.2-5.4 [facility] Serum creatinine measurement (mass/volume)Ordered By: Will Kaba on 04-24-2025 Creatinine [Mass/Vol] 1.27 mg/dL High 0.70-1.20 [facility] Serum globulin measurementOr dered By: Will Kaba on 04-24-2025 Globulin (S) [Mass/Vol] 2.8 g/dL 2.2-4.2 [facility] Serum glucose measurement (m ass/volume)Ordered By: Will Kaba on 04-24-2025 Glucose [Mass/Vol] 107 mg/dL High 70-99 [facility] Serum or plasma alanine tang otransferase (ALT) measurementOrdered By: Will Kaba on 04-24-2025 ALT [Catalytic activity/Vol] 10 U/L <35 [facility] Serum or plasma albumin yovani urement (mass/volume)Ordered By: Will Kaba on 04-24-2025 Albumin [Mass/Vol] 4.2 g/dL 3.4-4.8 [facility] Serum or plasma alkaline tello sphatase measurementOrdered By: Will Kaba on 04-24-2025 ALP [Catalytic activity/Vol] 75 U/L 35-104 [facility] Serum or plasma calcium yovani urement (mass/volume)Ordered By: Will Kaba on 04-24-2025 Calcium [Mass/Vol] 9.2 mg/dL 7.6-11.0 [facility] Serum or plasma urea nitroge n measurement (mass/volume)Ordered By: Will Kaba on 04-24-2025 Urea nitrogen [Mass/Vol] 16 mg/dL 4-19 [facility] Sodium levelOrdered By: Calin Kaba on 04-24-2025 Sodium [Moles/Vol] 141 mmol/L 133-145 [facility] Total proteinOrdered By: Leonidas Kaba on 04-24-2025 Protein [Mass/Vol] 7.0 g/dL 5.9-8.4 [facility] Urinalysis, Completeon 04-24 BACTERIA Normal None Seen [facility] Comment on above: Order Comment: LIVIA HUA TO SPECIFY Result Comment: Jared murdock via OM: Ordered Performed By: #### L 400.0001 ####[facility] [address] [place], [address] BILIRUBIN URINE Normal Negative [facility] Comment on above: Order Comment: LIVIA HUA TO SPECIFY Result Comment: Canc elled via OM: MD Ordered Performed By: #### L 400.0001 ####[facility] [address] [place], [address] Clarity (U) Normal Clear [facility] Comment on above: Order Comment: LIVIA CTOR TO SPECIFY Result Comment: Canc elled via OM: MD Ordered Performed By: #### L 400.0001 ####[facility] [address] [place], [address] Color (U) Normal Yellow [facility] Comment on above: Order Comment: LIVIA CTOR TO SPECIFY Result Comment: Canc elled via OM: MD Ordered Performed By: #### L 400.0001 ####[facility] [address] [place], [address] EPI,SQUAMOUS Normal 5-10 [facility] Comment on above: Order Comment: LIVIA CTOR TO SPECIFY Result Comment: Canc elled via OM: MD Ordered Performed By: #### L 400.0001 ####[facility] [address] [place], [address] GLUCOSE, UR Normal Normal [facility] Comment on above: Order Comment: LIVIA CTOR TO SPECIFY Result Comment: Canc elled via OM: MD Ordered Performed By: #### L 400.0001 ####[facility] [address] [place], [address] KETONE UR Normal Negative [facility] Comment on above: Order Comment: LIVIA CTOR TO SPECIFY Result Comment: Canc elled via OM: MD Ordered Performed By: #### L 400.0001 ####[facility] [address] [place], [address] LEUK ESTERASE Normal Negative [facility] Comment on above: Order Comment: LIVIA CTOR TO SPECIFY Result Comment: Canc elled via OM: MD Ordered Performed By: #### L 400.0001 ####[facility] [address] [place], [address] Mucus Ql (Urine sed) Normal [facility] Comment on above: Order Comment: LIVIA CTOR TO SPECIFY Result Comment: Canc elled via OM: MD Ordered Performed By: #### L 400.0001 ####[facility] [address] [place], [address] Nitrite Ql (U) Normal Negative [facility] Comment on above: Order Comment: COLLE CTOR TO SPECIFY Result Comment: Canc elled via OM: MD Ordered Performed By: #### L 400.0001 ####[facility] [address] [place], [address] OCCULT BLOOD-UR Normal Negative [facility] Comment on above: Order Comment: LIVIA CTOR TO SPECIFY Result Comment: Canc elled via OM: MD Ordered Performed By: #### L 400.0001 ####[facility] [address] [place], [address] pH UR Normal 5.0 - 8.0 [facility] Comment on above: Order Comment: LIVIA CTOR TO SPECIFY Result Comment: Canc elled via OM: MD Ordered Performed By: #### L 400.0001 ####[facility] [address] [place], [address] PROT DIPSTX Normal Negative [facility] Comment on above: Order Comment: LIVIA CTOR TO SPECIFY Result Comment: Canc elled via OM: MD Ordered Performed By: #### L 400.0001 ####[facility] [address] [place], [address] RBC Normal 0-5 [facility] Comment on above: Order Comment: LIVIA CTOR TO SPECIFY Result Comment: Canc elled via OM: MD Ordered Performed By: #### L 400.0001 ####[facility] [address] [place], [address] SP.GR. DIPSTX Normal 1.002-1.030 [facility] Comment on above: Order Comment: LIVIA CTOR TO SPECIFY Result Comment: Canc elled via OM: MD Ordered Performed By: #### L 400.0001 ####[facility] [address] [place], [address] UR Preservative Normal [facility] Comment on above: Order Comment: COLLE CTOR TO SPECIFY Result Comment: Canc elled via OM: MD Ordered Performed By: #### L 400.0001 ####[facility] [address] [place], [address] UROBILI Normal Normal [facility] Comment on above: Order Comment: COLLE CTOR TO SPECIFY Result Comment: Canc elled via OM: MD Ordered Performed By: #### L 400.0001 ####[facility] [address] [place], [address] WBC Normal 0-5 [facility] Comment on above: Order Comment: COLLE CTOR TO SPECIFY Result Comment: Canc elled via OM: MD Ordered Performed By: #### L 400.0001 ####[facility] [address] [place], [address] White blood cell (WBC) count Ordered By: Will Kaba on 04-24-2025 WBC (Bld) [#/Vol] 9.9 10*3/uL 4.4-11.0 [facility] Myoglobin, Serumon 5 Myoglobin, Ser 76 ng/mL High 25-58 [facility] Comment on above: Result Comment: Perf ormed at: CB - [facility] [address] [id number] Director: Vitaly Aguilera PhD, Phone: [phone] Performed By: #### L 3600.5100, L500.4050, L100.0100, L501.4021, L501.3620 ####[facility] [address] [place], [address] Absolute lymphocyte countOrd ered By: Daniele Salazar on 04-20-2025 Lymphocytes Auto (Unsp spec) [#/Vol] 1.66 10*3/uL 0.83-4.51 [facility] Absolute neutrophil countOrd ered By: Daniele Salazar on 04-20-2025 Neutrophils (Bld) [#/Vol] 4.5 10*3/uL 2.0-7.7 [facility] Anion gap in Serum or Plasma Ordered By: Daniele Salazar on 04-20-2025 Anion gap [Moles/Vol] 12 mmol/L 5- [facility] Automated lymphocyte count a s percentage of total leukocytesOrdered By: Daniele Salazar on 04-20-2025 Lymphocytes/100 WBC Auto (Unsp spec) 24.7 % [facility] BUN/creatinine ratioOrdered By: Daniele Martin on 04-20-2025 Urea nitrogen/Creatinine [Mass ratio] 15.8 mg/mg - [facility] Basophil percentageOrdered B y: Daniele Salazar on 04-20-2025 Basophils/100 WBC (Bld) 0.7 % 0- [facility] Bilirubin, totalOrdered By: Daniele Salazar on 04-20-2025 Bilirubin [Mass/Vol] 0.33 mg/dL 0.00-1.30 [facility] CBC W/Diff, Automatedon 04-01 Absolute Lymph 1.66 X10 3/uL Normal 0.83-4.51 [facility] Comment on above: Performed By: #### L 3600.5100, L500.4050, L100.0100, L501.4021, L501.3620 ####[facility] [address] [place], [address] Absolute Neut 4.5 X10 3/uL Normal 2.0-7.7 [facility] Comment on above: Performed By: #### L 3600.5100, L500.4050, L100.0100, L501.4021, L501.3620 ####[facility] [address] [place], [address] Basophils/100 WBC (Bld) 0.7 % Normal 0-1 [facility] Comment on above: Performed By: #### L 3600.5100, L500.4050, L100.0100, L501.4021, L501.3620 ####[facility] [address] [place], [address] Eosinophils/100 WBC (Bld) 2.1 % Normal 0-5 [facility] Comment on above: Performed By: #### L 3600.5100, L500.4050, L100.0100, L501.4021, L501.3620 ####[facility] [address] [place], [address] Erythrocyte distribution width (RBC) [Ratio] 13.8 % Normal 11.6-14.6 [facility] Comment on above: Performed By: #### L 3600.5100, L500.4050, L100.0100, L501.4021, L501.3620 ####[facility] [address] [place], [address] Hematocrit (Bld) [Volume fraction] 45.3 % Normal 37-47 [facility] Comment on above: Performed By: #### L 3600.5100, L500.4050, L100.0100, L501.4021, L501.3620 ####[facility] [address] [place], [address] Hemoglobin (Bld) [Mass/Vol] 14.2 g/dL Normal 12.0-15.0 [facility] Comment on above: Performed By: #### L 3600.5100, L500.4050, L100.0100, L501.4021, L501.3620 ####[facility] [address] [place], [address] IG% 0.300 Normal 0.0-0.9 [facility] Comment on above: Result Comment: IG% - Immature Granulocytes (promyelocytes, myelocytes andmetamyelocytes) > 1% indicates that a LEFT SHIFT is Present. Performed By: #### L 3600.5100, L500.4050, L100.0100, L501.4021, L501.3620 ####[facility] [address] [place], [address] Lymphocytes/100 WBC (Bld) 24.7 % Normal 19-41 [facility] Comment on above: Performed By: #### L 3600.5100, L500.4050, L100.0100, L501.4021, L501.3620 ####[facility] [address] [place], [address] MCH (RBC) [Entitic mass] 27.5 pg Normal 27.0-32.0 [facility] Comment on above: Performed By: #### L 3600.5100, L500.4050, L100.0100, L501.4021, L501.3620 ####[facility] [address] [place], [address] MCHC (RBC) [Mass/Vol] 31.3 g/dL Low 32-36 [facility] Comment on above: Performed By: #### L 3600.5100, L500.4050, L100.0100, L501.4021, L501.3620 ####[facility] [address] [place], [address] MCV (RBC) [Entitic vol] 87.6 fL Normal 81-99 [facility] Comment on above: Performed By: #### L 3600.5100, L500.4050, L100.0100, L501.4021, L501.3620 ####[facility] [address] [place], [address] Monocytes/100 WBC (Bld) 4.9 % Normal 0-10 [facility] Comment on above: Performed By: #### L 3600.5100, L500.4050, L100.0100, L501.4021, L501.3620 ####[facility] [address] [place], [address] Neutrophils/100 WBC (Bld) 67.3 % Normal 47-70 [facility] Comment on above: Performed By: #### L 3600.5100, L500.4050, L100.0100, L501.4021, L501.3620 ####[facility] [address] [place], [address] Nucleated RBC (Bld) [#/Vol] 0 10*3/uL Normal 0-5 [facility] Comment on above: Performed By: #### L 3600.5100, L500.4050, L100.0100, L501.4021, L501.3620 ####[facility] [address] [place], [address] Platelet mean volume (Bld) [Entitic vol] 10.5 fL Normal 6.2-12.0 [facility] Comment on above: Performed By: #### L 3600.5100, L500.4050, L100.0100, L501.4021, L501.3620 ####[facility] [address] [place], [address] Platelets (Bld) [#/Vol] 257 10*3/uL Normal 150-450 [facility] Comment on above: Performed By: #### L 3600.5100, L500.4050, L100.0100, L501.4021, L501.3620 ####[facility] [address] [place], [address] RBC (Bld) [#/Vol] 5.17 10*6/uL Normal 4.2-5.4 [facility] Comment on above: Performed By: #### L 3600.5100, L500.4050, L100.0100, L501.4021, L501.3620 ####[facility] [address] [place], [address] RDW SD 44.8 fl High 35.1-43.9 [facility] Comment on above: Performed By: #### L 3600.5100, L500.4050, L100.0100, L501.4021, L501.3620 ####[facility] [address] [place], [address] WBC (Bld) [#/Vol] 6.7 10*3/uL Normal 4.4-11.0 [facility] Comment on above: Performed By: #### L 3600.5100, L500.4050, L100.0100, L501.4021, L501.3620 ####[facility] [address] [place], [address] CPK Total, Creatine Kinaseon 04-20-2025 CPK TOTAL 103 U/L Normal 24-195 [facility] Comment on above: Performed By: #### L 3600.5100, L500.4050, L100.0100, L501.4021, L501.3620 ####[facility] [address] [place], [address] Carbon dioxide, total [Moles /volume] in Central venous bloodOrdered By: Daniele Salazar on 04-20-2025 CO2 [Moles/Vol] 26.1 mmol/L 21.0-32.0 [facility] Chloride assayOrdered By: Zachariah Salazar on 04-20-2025 Chloride [Moles/Vol] 102 mmol/L 98-108 [facility] Comprehensive Metabolic Prof ilon 04-20-2025 Albumin [Mass/Vol] 4.2 g/dL Normal 3.4-4.8 [facility] Comment on above: Performed By: #### L 3600.5100, L500.4050, L100.0100, L501.4021, L501.3620 ####[facility] [address] [place], [address] Albumin/Globulin [Mass ratio] 1.4 {ratio} Normal 0.9-2.4 [facility] Comment on above: Performed By: #### L 3600.5100, L500.4050, L100.0100, L501.4021, L501.3620 ####[facility] [address] [place], [address] ALK PHOS 77 U/L Normal 35-104 [facility] Comment on above: Performed By: #### L 3600.5100, L500.4050, L100.0100, L501.4021, L501.3620 ####[facility] [address] [place], [address] ALT [Catalytic activity/Vol] 8 U/L Normal <=34 [facility] Comment on above: Performed By: #### L 3600.5100, L500.4050, L100.0100, L501.4021, L501.3620 ####[facility] [address] [place], [address] AST [Catalytic activity/Vol] 22 U/L Normal <=31 [facility] Comment on above: Performed By: #### L 3600.5100, L500.4050, L100.0100, L501.4021, L501.3620 ####[facility] [address] [place], [address] Bilirubin [Mass/Vol] 0.33 mg/dL Normal 0.00-1.30 [facility] Comment on above: Performed By: #### L 3600.5100, L500.4050, L100.0100, L501.4021, L501.3620 ####[facility] [address] [place], [address] BUN/CRE 15.8 RATIO Normal 10-20 [facility] Comment on above: Performed By: #### L 3600.5100, L500.4050, L100.0100, L501.4021, L501.3620 ####[facility] [address] [place], [address] Calcium [Mass/Vol] 9.6 mg/dL Normal 7.6-11.0 [facility] Comment on above: Performed By: #### L 3600.5100, L500.4050, L100.0100, L501.4021, L501.3620 ####[facility] [address] [place], [address] Chloride [Moles/Vol] 102 mmol/L Normal 98-108 [facility] Comment on above: Performed By: #### L 3600.5100, L500.4050, L100.0100, L501.4021, L501.3620 ####[facility] [address] [place], [address] CO2 [Moles/Vol] 26.1 mmol/L Normal 21.0-32.0 [facility] Comment on above: Performed By: #### L 3600.5100, L500.4050, L100.0100, L501.4021, L501.3620 ####[facility] [address] [place], [address] Creatinine [Mass/Vol] 1.11 mg/dL Normal 0.70-1.20 [facility] Comment on above: Performed By: #### L 3600.5100, L500.4050, L100.0100, L501.4021, L501.3620 ####[facility] [address] [place], [address] GAP 12 Normal 5-15 [facility] Comment on above: Performed By: #### L 3600.5100, L500.4050, L100.0100, L501.4021, L501.3620 ####[facility] [address] [place], [address] GFR/1.73 sq M.predicted among non-blacks MDRD (S/P/Bld) [Vol rate/Area] 53 mL/min/{1.73_m2} Low >60 [facility] Comment on above: Result Comment: mL/m in/1.73m2 CKD-EPI Creatinine Equation (2020) Performed By: #### L 3600.5100, L500.4050, L100.0100, L501.4021, L501.3620 ####[facility] [address] [place], [address] Globulin (S) [Mass/Vol] 3.1 g/dL Normal 2.2-4.2 [facility] Comment on above: Performed By: #### L 3600.5100, L500.4050, L100.0100, L501.4021, L501.3620 ####[facility] [address] [place], [address] Glucose [Mass/Vol] 94 mg/dL Normal 70-99 [facility] Comment on above: Performed By: #### L 3600.5100, L500.4050, L100.0100, L501.4021, L501.3620 ####[facility] [address] [place], [address] Potassium [Moles/Vol] 4.6 mmol/L Normal 3.3-5.1 [facility] Comment on above: Performed By: #### L 3600.5100, L500.4050, L100.0100, L501.4021, L501.3620 ####[facility] [address] [place], [address] Sodium [Moles/Vol] 140 mmol/L Normal 133-145 [facility] Comment on above: Performed By: #### L 3600.5100, L500.4050, L100.0100, L501.4021, L501.3620 ####[facility] [address] [place], [place], [id number] T PROT 7.4 g/dL Normal 5.9-8.4 [facility] Comment on above: Performed By: #### L 3600.5100, L500.4050, L100.0100, L501.4021, L501.3620 ####[facility] [address] [place], [address] Urea nitrogen [Mass/Vol] 18 mg/dL Normal 4-19 [facility] Comment on above: Performed By: #### L 3600.5100, L500.4050, L100.0100, L501.4021, L501.3620 ####[facility] [address] [place], [place], [id number] Eosinophil percentageOrdered By: Daniele Salazar on 04-20-2025 Eosinophils/100 WBC (Bld) 2.1 % 0-5 [facility] Erythrocyte distribution wid th ratioOrdered By: Daniele Salazar on 04-20-2025 Erythrocyte distribution width (RBC) [Ratio] 13.8 % 11.6-14.6 [facility] Erythrocyte distribution wid th standard deviationOrdered By: Daniele Salazar on 04-20-2025 Erythrocyte distribution width (RBC) [Ratio] 44.8 fl High 35.1-43.9 [facility] Glomerular filtration rate ( GFR) estimation/1.73 sq m using serum, plasma, or whole bOrdered By: Daniele Salazar on 04-20-2025 GFR/1.73 sq M.predicted among non-blacks MDRD (S/P/Bld) [Vol rate/Area] 53 mL/min/{1.73_m2} Low >60 [facility] Comment on above: mL/min/1.73m2 CKD-EP I Creatinine Equation (2020) Hematocrit Auto (Bld) [Volum e fraction]Ordered By: Daniele Salazar on 04-20-2025 Hematocrit (Bld) [Volume fraction] 45.3 % 37-47 [facility] Hemoglobin measurementOrdere d By: Daniele Salazar on 04-20-2025 Hemoglobin (Bld) [Mass/Vol] 14.2 g/dL 12.0-15.0 [facility] Immature granulocytes/100 WB C Auto (Bld)Ordered By: Daniele Salazar on 04-20-2025 Immature granulocytes/100 WBC (Bld) 0.300 % 0.0-0.9 [facility] Comment on above: IG% - Immature Granu locytes (promyelocytes, myelocytes and metamyelocytes) > 1% indicates that a LEFT SHIFT is Present. L501.4021on 04-20-2025 Trop T High Sen 28 ng/L High <=14 [facility] Comment on above: Performed By: #### L 3600.5100, L500.4050, L100.0100, L501.4021, L501.3620 ####[facility] [address] [place], [place], [id number] Laboratory - Chemistry and C hemistry - challengeOrdered By: Daniele Salazar on 04-20-2025 AST [Catalytic activity/Vol] 22 U/L <32 [facility] MCV (mean corpuscular volume ) determinationOrdered By: Daniele Salazar 04-20-2025 MCV (RBC) [Entitic vol] 87.6 fL 81-99 [facility] Mean corpuscular hemoglobin (MCH) determinationOrdered By: Daniele Salazar 04-20-2025 MCH (RBC) [Entitic mass] 27.5 pg 27.0-32.0 [facility] Mean corpuscular hemoglobin concentration (MCHC) determinationOrdered By: Daniele Salazar 04-20-2025 MCHC (RBC) [Mass/Vol] 31.3 g/dL Low 32-36 [facility] Mean platelet volume determi nationOrdered By: Daniele Salazar on 04-20-2025 Platelet mean volume (Bld) [Entitic vol] 10.5 fL 6.2-12.0 [facility] Monocyte percentageOrdered B y: Daniele Salazar on 04-20-2025 Monocytes/100 WBC (Bld) 4.9 % 0-10 [facility] Neutrophil percentageOrdered By: Daniele Salazar on 04-20-2025 Neutrophils/100 WBC (Bld) 67.3 % 47-70 [facility] Nucleated red blood cell per centageOrdered By: Daniele Salazar on 04-20-2025 Nucleated RBC/100 WBC (Bld) [Ratio] 0 % 0-5 [facility] Platelet countOrdered By: Zachariah Salazar on 04-20-2025 Platelets (Bld) [#/Vol] 257 10*3/uL 150-450 [facility] Potassium measurement (mass/ volume)Ordered By: Daniele Salazar on 04-20-2025 Potassium (Unsp spec) [Mass/Vol] 4.6 mmol/L 3.3-5.1 [facility] RBC Auto (Bld) [#/Vol]Ordere d By: Daniele Salazar on 04-20-2025 RBC (Bld) [#/Vol] 5.17 10*6/uL 4.2-5.4 [facility] Serum creatinine measurement (mass/volume)Ordered By: Daniele Salazar on 04-20-2025 Creatinine [Mass/Vol] 1.11 mg/dL 0.70-1.20 [facility] Serum globulin measurementOr dered By: Daniele Salazar on 04-20-2025 Globulin (S) [Mass/Vol] 3.1 g/dL 2.2-4.2 [facility] Serum glucose measurement (m ass/volume)Ordered By: Daniele Salazar on 04-20-2025 Glucose [Mass/Vol] 94 mg/dL 70-99 [facility] Serum myoglobin measurementO rdered By: Daniele Salazar on 04-20-2025 Myoglobin [Mass/Vol] 76 ng/mL High 25-58 [facility] Comment on above: Performed at: [place] [id number] Director: Vitaly Aguilera PhD, Phone: [phone] Serum or plasma alanine tang otransferase (ALT) measurementOrdered By: Daniele Salazar on 04-20-2025 ALT [Catalytic activity/Vol] 8 U/L <35 [facility] Serum or plasma albumin yovani urement (mass/volume)Ordered By: Daniele Salazar on 04-20-2025 Albumin [Mass/Vol] 4.2 g/dL 3.4-4.8 [facility] Serum or plasma albumin/glob ulin mass ratioOrdered By: Daniele Salazar on 04-20-2025 Albumin/Globulin [Mass ratio] 1.4 {ratio} 0.9-2.4 [facility] Serum or plasma alkaline tello sphatase measurementOrdered By: Daniele Salazar on 04-20-2025 ALP [Catalytic activity/Vol] 77 U/L 35-104 [facility] Serum or plasma calcium yovani urement (mass/volume)Ordered By: Daniele Salazar on 04-20-2025 Calcium [Mass/Vol] 9.6 mg/dL 7.6-11.0 [facility] Serum or plasma creatine kin ase activityOrdered By: Daniele Salazar on 04-20-2025 CK [Catalytic activity/Vol] 103 U/L 24-195 [facility] Serum or plasma urea nitroge n measurement (mass/volume)Ordered By: Daniele Salazar on 04-20-2025 Urea nitrogen [Mass/Vol] 18 mg/dL 4-19 [facility] Sodium levelOrdered By: Daniele Salazar on 04-20-2025 Sodium [Moles/Vol] 140 mmol/L 133-145 [facility] Total proteinOrdered By: Daniele Salazar on 04-20-2025 Protein [Mass/Vol] 7.4 g/dL 5.9-8.4 [facility] Troponin T.cardiac [Mass/vol ume] in Serum or Plasma by High sensitivity methodOrdered By: Daniele Salazar on 04-20-2025 Troponin T.cardiac High sensitivity method [Mass/Vol] 28 ng/L High <14 [facility] Comment on above: Delta: 19 on 5-1450 White blood cell (WBC) count Ordered By: Daniele Salazar on 04-20-2025 WBC (Bld) [#/Vol] 6.7 10*3/uL 4.4-11.0 [facility] Absolute lymphocyte countOrd ered By: Daniele Salazar on 03-10-2025 Lymphocytes Auto (Unsp spec) [#/Vol] 2.12 10*3/uL 0.83-4.51 [facility] Absolute neutrophil countOrd ered By: Daniele Salazar on 03-10-2025 Neutrophils (Bld) [#/Vol] 3.9 10*3/uL 2.0-7.7 [facility] Anion gap in Serum or Plasma Ordered By: Daniele Martin on 03-10-2025 Anion gap [Moles/Vol] 10 mmol/L 5- [facility] Automated lymphocyte count a s percentage of total leukocytesOrdered By: Daniele Martin on 03-10-2025 Lymphocytes/100 WBC Auto (Unsp spec) 31.3 % - [facility] BUN/creatinine ratioOrdered By: [facility] Urea nitrogen/Creatinine [Mass ratio] 19.1 mg/mg 10- [facility] Basophil percentageOrdered B y: Daniele Salazar on 03-10-2025 Basophils/100 WBC (Bld) 0.6 % 0- [facility] Bilirubin, totalOrdered By: Daniele Salazar on 03-10-2025 Bilirubin [Mass/Vol] mg/dL 0.00-1.30 [facility] CBC W/Diff, Automatedon 02-28 Absolute Lymph 2.12 X10 3/uL Normal 0.83-4.51 [facility] Comment on above: Performed By: #### L 501.9520, L500.4050, L500.4100, L100.0100, L506.1001 ####[facility] [address] [place], [address] Absolute Neut 3.9 X10 3/uL Normal 2.0-7.7 [facility] Comment on above: Performed By: #### L 501.9520, L500.4050, L500.4100, L100.0100, L506.1001 ####[facility] [address] [place], [address] Basophils/100 WBC (Bld) 0.6 % Normal 0-1 [facility] Comment on above: Performed By: #### L 501.9520, L500.4050, L500.4100, L100.0100, L506.1001 ####[facility] [address] [place], [address] Eosinophils/100 WBC (Bld) 3.5 % Normal 0-5 [facility] Comment on above: Performed By: #### L 501.9520, L500.4050, L500.4100, L100.0100, L506.1001 ####[facility] [address] [place], [address] Erythrocyte distribution width (RBC) [Ratio] 14.3 % Normal 11.6-14.6 [facility] Comment on above: Performed By: #### L 501.9520, L500.4050, L500.4100, L100.0100, L506.1001 ####[facility] [address] [place], [address] Hematocrit (Bld) [Volume fraction] 42.0 % Normal 37-47 [facility] Comment on above: Performed By: #### L 501.9520, L500.4050, L500.4100, L100.0100, L506.1001 ####[facility] [address] [place], [address] Hemoglobin (Bld) [Mass/Vol] 13.2 g/dL Normal 12.0-15.0 [facility] Comment on above: Performed By: #### L 501.9520, L500.4050, L500.4100, L100.0100, L506.1001 ####[facility] [address] [place], [address] IG% 0.100 Normal 0.0-0.9 [facility] Comment on above: Result Comment: IG% - Immature Granulocytes (promyelocytes, myelocytes andmetamyelocytes) > 1% indicates that a LEFT SHIFT is Present. Performed By: #### L 501.9520, L500.4050, L500.4100, L100.0100, L506.1001 ####[facility] [address] [place], [address] Lymphocytes/100 WBC (Bld) 31.3 % Normal 19-41 [facility] Comment on above: Performed By: #### L 501.9520, L500.4050, L500.4100, L100.0100, L506.1001 ####[facility] [address] [place], [address] MCH (RBC) [Entitic mass] 27.4 pg Normal 27.0-32.0 [facility] Comment on above: Performed By: #### L 501.9520, L500.4050, L500.4100, L100.0100, L506.1001 ####[facility] [address] [place], [address] MCHC (RBC) [Mass/Vol] 31.4 g/dL Low 32-36 [facility] Comment on above: Performed By: #### L 501.9520, L500.4050, L500.4100, L100.0100, L506.1001 ####[facility] [address] [place], [address] MCV (RBC) [Entitic vol] 87.1 fL Normal 81-99 [facility] Comment on above: Performed By: #### L 501.9520, L500.4050, L500.4100, L100.0100, L506.1001 ####[facility] [address] [place], [address] Monocytes/100 WBC (Bld) 6.9 % Normal 0-10 [facility] Comment on above: Performed By: #### L 501.9520, L500.4050, L500.4100, L100.0100, L506.1001 ####[facility] [address] [place], [address] Neutrophils/100 WBC (Bld) 57.6 % Normal 47-70 [facility] Comment on above: Performed By: #### L 501.9520, L500.4050, L500.4100, L100.0100, L506.1001 ####[facility] [address] [place], [address] Nucleated RBC (Bld) [#/Vol] 0 10*3/uL Normal 0-5 [facility] Comment on above: Performed By: #### L 501.9520, L500.4050, L500.4100, L100.0100, L506.1001 ####[facility] [address] [place], [address] Platelet mean volume (Bld) [Entitic vol] 10.4 fL Normal 6.2-12.0 [facility] Comment on above: Performed By: #### L 501.9520, L500.4050, L500.4100, L100.0100, L506.1001 ####[facility] [address] [place], [address] Platelets (Bld) [#/Vol] 168 10*3/uL Normal 150-450 [facility] Comment on above: Performed By: #### L 501.9520, L500.4050, L500.4100, L100.0100, L506.1001 ####[facility] [address] [place], [address] RBC (Bld) [#/Vol] 4.82 10*6/uL Normal 4.2-5.4 [facility] Comment on above: Performed By: #### L 501.9520, L500.4050, L500.4100, L100.0100, L506.1001 ####[facility] [address] [place], [address] RDW SD 45.7 fl High 35.1-43.9 [facility] Comment on above: Performed By: #### L 501.9520, L500.4050, L500.4100, L100.0100, L506.1001 ####[facility] [address] [place], [address] WBC (Bld) [#/Vol] 6.8 10*3/uL Normal 4.4-11.0 [facility] Comment on above: Performed By: #### L 501.9520, L500.4050, L500.4100, L100.0100, L506.1001 ####[facility] [address] [place], [address] Calculated very low density lipoprotein (VLDL) cholesterol measurementOrdered By: Daniele Salazar on 03-10-2025 Calculated very low density lipoprotein (VLDL) cholesterol measurement 43 mg/dL High 5-40 [facility] Carbon dioxide, total [Moles /volume] in Central venous bloodOrdered By: Daniele Salazar on 03-10-2025 CO2 [Moles/Vol] 27.4 mmol/L 21.0-32.0 [facility] Chloride assayOrdered By: Zachariah Salazar on 03-10-2025 Chloride [Moles/Vol] 105 mmol/L 98-108 [facility] Comprehensive Metabolic Prof ilon 03-10-2025 Albumin [Mass/Vol] 3.8 g/dL Normal 3.4-4.8 [facility] Comment on above: Performed By: #### L 501.9520, L500.4050, L500.4100, L100.0100, L506.1001 ####[facility] [address] [place], [address] Albumin/Globulin [Mass ratio] 1.4 {ratio} Normal 0.9-2.4 [facility] Comment on above: Performed By: #### L 501.9520, L500.4050, L500.4100, L100.0100, L506.1001 ####[facility] [address] [place], [address] ALK PHOS 86 U/L Normal 35-104 [facility] Comment on above: Performed By: #### L 501.9520, L500.4050, L500.4100, L100.0100, L506.1001 ####[facility] [address] [place], [address] ALT [Catalytic activity/Vol] 12 U/L Normal <=34 [facility] Comment on above: Performed By: #### L 501.9520, L500.4050, L500.4100, L100.0100, L506.1001 ####[facility] [address] [place], [address] AST [Catalytic activity/Vol] 29 U/L Normal <=31 [facility] Comment on above: Result Comment: Hemo lysis present, Results??could be affected.?? Performed By: #### L 501.9520, L500.4050, L500.4100, L100.0100, L506.1001 ####[facility] [address] [place], [address] BUN/CRE 19.1 RATIO Normal 10-20 [facility] Comment on above: Performed By: #### L 501.9520, L500.4050, L500.4100, L100.0100, L506.1001 ####[facility] [address] [place] [place], [address] Calcium [Mass/Vol] 9.3 mg/dL Normal 7.6-11.0 [facility] Comment on above: Performed By: #### L 501.9520, L500.4050, L500.4100, L100.0100, L506.1001 ####[facility] [address] [place], [address] Chloride [Moles/Vol] 105 mmol/L Normal 98-108 [facility] Comment on above: Performed By: #### L 501.9520, L500.4050, L500.4100, L100.0100, L506.1001 ####[facility] [address] [place], [address] CO2 [Moles/Vol] 27.4 mmol/L Normal 21.0-32.0 [facility] Comment on above: Performed By: #### L 501.9520, L500.4050, L500.4100, L100.0100, L506.1001 ####[facility] [address] [place], [address] Creatinine [Mass/Vol] 1.17 mg/dL Normal 0.70-1.20 [facility] Comment on above: Performed By: #### L 501.9520, L500.4050, L500.4100, L100.0100, L506.1001 ####[facility] [address] [place], [address] GAP 10 Normal 5-15 [facility] Comment on above: Performed By: #### L 501.9520, L500.4050, L500.4100, L100.0100, L506.1001 ####[facility] [address] [place], [address] GFR/1.73 sq M.predicted among non-blacks MDRD (S/P/Bld) [Vol rate/Area] 50 mL/min/{1.73_m2} Low >60 [facility] Comment on above: Result Comment: mL/m in/1.73m2 CKD-EPI Creatinine Equation (2020) Performed By: #### L 501.9520, L500.4050, L500.4100, L100.0100, L506.1001 ####[facility] [address] [place], [address] Globulin (S) [Mass/Vol] 2.8 g/dL Normal 2.2-4.2 [facility] Comment on above: Performed By: #### L 501.9520, L500.4050, L500.4100, L100.0100, L506.1001 ####[facility] [address] [place], [address] Glucose [Mass/Vol] 85 mg/dL Normal 70-99 [facility] Comment on above: Performed By: #### L 501.9520, L500.4050, L500.4100, L100.0100, L506.1001 ####[facility] [address] [place], [address] Potassium [Moles/Vol] 4.9 mmol/L Normal 3.3-5.1 [facility] Comment on above: Result Comment: Hemo lysis present, Results??could be affected.?? Performed By: #### L 501.9520, L500.4050, L500.4100, L100.0100, L506.1001 ####[facility] [address] [place], [address] Sodium [Moles/Vol] 142 mmol/L Normal 133-145 [facility] Comment on above: Performed By: #### L 501.9520, L500.4050, L500.4100, L100.0100, L506.1001 ####[facility] [address] [place], [address] T BILI < 0.15 Normal 0.00-1.30 [facility] Comment on above: Performed By: #### L 501.9520, L500.4050, L500.4100, L100.0100, L506.1001 ####[facility] [address] [place], [address] T PROT 6.6 g/dL Normal 5.9-8.4 [facility] Comment on above: Performed By: #### L 501.9520, L500.4050, L500.4100, L100.0100, L506.1001 ####[facility] [address] [place], [place], [address] Urea nitrogen [Mass/Vol] 22 mg/dL High 4-19 [facility] Comment on above: Performed By: #### L 501.9520, L500.4050, L500.4100, L100.0100, L506.1001 ####[facility] [address] [place], [address] Eosinophil percentageOrdered By: Daniele Martin on 03-10-2025 Eosinophils/100 WBC (Bld) 3.5 % 0-5 [facility] Erythrocyte distribution wid th ratioOrdered By: Daniele Salazar on 03-10-2025 Erythrocyte distribution width (RBC) [Ratio] 14.3 % 11.6-14.6 [facility] Erythrocyte distribution wid th standard deviationOrdered By: Daniele Salazar on 03-10-2025 Erythrocyte distribution width (RBC) [Ratio] 45.7 fl High 35.1-43.9 [facility] Glomerular filtration rate ( GFR) estimation/1.73 sq m using serum, plasma, or whole bOrdered By: Daniele Salazar on 03-10-2025 GFR/1.73 sq M.predicted among non-blacks MDRD (S/P/Bld) [Vol rate/Area] 50 mL/min/{1.73_m2} Low >60 [facility] Comment on above: mL/min/1.73m2 CKD-EP I Creatinine Equation (2020) Hematocrit Auto (Bld) [Volum e fraction]Ordered By: Daniele Salazar on 03-10-2025 Hematocrit (Bld) [Volume fraction] 42.0 % 37-47 [facility] Hemoglobin measurementOrdere d By: Daniele Salazar 03-10-2025 Hemoglobin (Bld) [Mass/Vol] 13.2 g/dL 12.0-15.0 [facility] Immature granulocytes/100 WB C Auto (Bld)Ordered By: Daniele Salazar 03-10-2025 Immature granulocytes/100 WBC (Bld) 0.100 % 0.0-0.9 [facility] Comment on above: IG% - Immature Granu locytes (promyelocytes, myelocytes and metamyelocytes) > 1% indicates that a LEFT SHIFT is Present. LDL calc ser/plasOrdered By: Daniele Salazar on 03-10-2025 Cholesterol in LDL [Mass/Vol] 119 mg/dL [facility] Comment on above: Krbhnsisgv=826-556 m g/dL & Higher Votb=562 mg/dL or greater Laboratory - Chemistry and C hemistry - challengeOrdered By: Daniele Salazar on 03-10-2025 AST [Catalytic activity/Vol] 29 U/L <32 [facility] Comment on above: Hemolysis present, R esults could be affected. Lipid Profileon 03-10-2025 CHOL:HDL 4.03 Normal [facility] Comment on above: Performed By: #### L 501.9520, L500.4050, L500.4100, L100.0100, L506.1001 ####[facility] [address] [place], [address] Cholesterol [Mass/Vol] 215 mg/dL High <=200 [facility] Comment on above: Result Comment: Chol esterol level, Desirable <200 mg/dLBorderline high cholesterol 200-239 mg/dLHigh cholesterol >=240 mg/dLRecommendations of the NCEP Adult Treatment Panel for thefollowing risk-cutoff thresholds for the [place] Americanpulation. Performed By: #### L 501.9520, L500.4050, L500.4100, L100.0100, L506.1001 ####[facility] [address] [place], [address] Cholesterol in HDL [Mass/Vol] 53 mg/dL Normal [facility] Comment on above: Result Comment: Ciara onal Cholesterol Education Program (NCEP) guidelines:<40 mg/dL: Low HDL-cholesterol (major risk factor for CHD)>= 60 mg/dL: High HDL-cholesterol (negative risk factor forCHD)HDL-cholesterol is affected by a number of factors, e.g.smoking, exercise, hormones, sex and age. Performed By: #### L 501.9520, L500.4050, L500.4100, L100.0100, L506.1001 ####[facility] [address] [place], [address] Cholesterol in LDL [Mass/Vol] 119 mg/dL Normal [facility] Comment on above: Result Comment: Bord svdnnk=015-993 mg/dL Higher Dsqk=017 mg/dL or greater Performed By: #### L 501.9520, L500.4050, L500.4100, L100.0100, L506.1001 ####[facility] [address] [place], [address] Cholesterol in VLDL [Mass/Vol] 43 mg/dL High 5-40 [facility] Comment on above: Performed By: #### L 501.9520, L500.4050, L500.4100, L100.0100, L506.1001 ####[facility] [address] [place], [address] Triglyceride [Mass/Vol] 216 mg/dL High [facility] Comment on above: Result Comment: The drugs N-Acetylcysteine and Metamizole may falselydepress this assay.Normal range: <150 mg/dLBorderline High: 150-199 mg/dLHigh: 200-499 mg/dLVery High: >500 mg/dL Performed By: #### L 501.9520, L500.4050, L500.4100, L100.0100, L506.1001 ####[facility] [address] [place], [address] MCV (mean corpuscular volume ) determinationOrdered By: Daniele Salazar on 03-10-2025 MCV (RBC) [Entitic vol] 87.1 fL 81-99 [facility] Mean corpuscular hemoglobin (MCH) determinationOrdered By: Daniele Salazar on 03-10-2025 MCH (RBC) [Entitic mass] 27.4 pg 27.0-32.0 [facility] Mean corpuscular hemoglobin concentration (MCHC) determinationOrdered By: Daniele Salazar on 03-10-2025 MCHC (RBC) [Mass/Vol] 31.4 g/dL Low 32-36 [facility] Mean platelet volume determi nationOrdered By: Daniele Salazar on 03-10-2025 Platelet mean volume (Bld) [Entitic vol] 10.4 fL 6.2-12.0 [facility] Monocyte percentageOrdered B y: Daniele Salazar on 03-10-2025 Monocytes/100 WBC (Bld) 6.9 % 0-10 [facility] Neutrophil percentageOrdered By: Daniele Salazra on 03-10-2025 Neutrophils/100 WBC (Bld) 57.6 % 47-70 [facility] Nucleated red blood cell per centageOrdered By: Daniele Salazar on 03-10-2025 Nucleated RBC/100 WBC (Bld) [Ratio] 0 % 0-5 [facility] Platelet countOrdered By: Zachariah Salazar on 03-10-2025 Platelets (Bld) [#/Vol] 168 10*3/uL 150-450 [facility] Potassium measurement (mass/ volume)Ordered By: Daniele Salazar on 03-10-2025 Potassium (Unsp spec) [Mass/Vol] 4.9 mmol/L 3.3-5.1 [facility] Comment on above: Hemolysis present, R esults could be affected. RBC Auto (Bld) [#/Vol]Ordere d By: Daniele Salazar on 03-10-2025 RBC (Bld) [#/Vol] 4.82 10*6/uL 4.2-5.4 [facility] Screening total cholesterol/ high density lipoprotein (HDL) cholesterol ratioOrdered By: Daniele Salazar on 03-10-2025 Cholesterol.total/Chol esterol in HDL [Mass ratio] 4.03 {ratio} [facility] Serum creatinine measurement (mass/volume)Ordered By: Daniele Salazar on 03-10-2025 Creatinine [Mass/Vol] 1.17 mg/dL 0.70-1.20 [facility] Serum globulin measurementOr dered By: Daniele Salazar 03-10-2025 Globulin (S) [Mass/Vol] 2.8 g/dL 2.2-4.2 [facility] Serum glucose measurement (m ass/volume)Ordered By: Daniele Salazar on 03-10-2025 Glucose [Mass/Vol] 85 mg/dL 70-99 [facility] Serum or plasma alanine tang otransferase (ALT) measurementOrdered By: Daniele Salazar 03-10-2025 ALT [Catalytic activity/Vol] 12 U/L <35 [facility] Serum or plasma albumin yovani urement (mass/volume)Ordered By: Daniele Salazar 03-10-2025 Albumin [Mass/Vol] 3.8 g/dL 3.4-4.8 [facility] Serum or plasma albumin/glob ulin mass ratioOrdered By: Daniele Martin 03-10-2025 Albumin/Globulin [Mass ratio] 1.4 {ratio} 0.9-2.4 [facility] Serum or plasma alkaline tello sphatase measurementOrdered By: Daniele Salazar 03-10-2025 ALP [Catalytic activity/Vol] 86 U/L 35-104 [facility] Serum or plasma calcium yovani urement (mass/volume)Ordered By: Daniele Salazar 03-10-2025 Calcium [Mass/Vol] 9.3 mg/dL 7.6-11.0 [facility] Serum or plasma cholesterol in HDL measurement (mass/volume)Ordered By: Daniele Salazar 03-10-2025 Cholesterol in HDL [Mass/Vol] 53 mg/dL >40 [facility] Comment on above: National Cholesterol Education Program (NCEP) guidelines:<40 mg/dL: Low HDL-cholesterol (major risk factor for CHD)>= 60 mg/dL: High HDL-cholesterol (negative risk factor for CHD)HDL-cholesterol is affected by a number of factors, e.g. smoking, exercise, hormones, sex and age. Serum or plasma cholesterol measurement (mass/volume)Ordered By: Daniele Salazar 03-10-2025 Cholesterol [Mass/Vol] 215 mg/dL High <201 [facility] Comment on above: Cholesterol level, D esirable <200 mg/dLBorderline high cholesterol 200-239 mg/dLHigh cholesterol >=240 mg/dLRecommendations of the NCEP Adult Treatment Panel for the following risk-cutoff thresholds for the [place] population. Serum or plasma urea nitroge n measurement (mass/volume)Ordered By: Daniele Salazar on 03-10-2025 Urea nitrogen [Mass/Vol] 22 mg/dL High 4-19 [facility] Sodium levelOrdered By: Daniele Salazar on 03-10-2025 Sodium [Moles/Vol] 142 mmol/L 133-145 [facility] TSH DL <= 0.005 mIU/L QnOrde red By: Daniele Salazar on 03-10-2025 TSH Qn 2.600 uIU/mL 0.300-4.200 [facility] Thyroid Stim Hormone (TSH)on 03-10-2025 TSH 2.600 uIU/mL Normal 0.300-4.200 [facility] Comment on above: Performed By: #### L 501.9520, L500.4050, L500.4100, L100.0100, L506.1001 ####[facility] [address] [place], [address] Total proteinOrdered By: Daniele Salazar on 03-10-2025 Protein [Mass/Vol] 6.6 g/dL 5.9-8.4 [facility] Triglycerides measurementOrd ered By: Daniele Salazar on 03-10-2025 Triglyceride [Mass/Vol] 216 mg/dL High <199 [facility] Comment on above: The drugs N-Acetylcy steine and Metamizole may falsely depress this assay. Normal range: <150 mg/dLBorderline High: 150-199 mg/dLHigh: 200-499 mg/dLVery High: >500 mg/dL Vitamin D,25 Hydroxyon 03-10 Vitamin D 25-OH 22.4 ng/mL Low 30-100 [facility] Comment on above: Result Comment: Nellie min D StatusDeficiency: <20 ng/mL (50nmol/L)Insufficiency: 20-30 ng/mL (50-75 nmol/L)Sufficiency: 30-100 ng/mL (75-250 nmol/L)Toxicity: >100 ng/mL (>250 nmol/L) Performed By: #### L 501.9520, L500.4050, L500.4100, L100.0100, L506.1001 ####[facility] [address] [place], [address] White blood cell (WBC) count Ordered By: Daniele Salazar on 03-10-2025 WBC (Bld) [#/Vol] 6.8 10*3/uL 4.4-11.0 [facility] Anion gap in Serum or Plasma Ordered By: Daniele Salazar on 01-02-2025 Anion gap [Moles/Vol] 11 mmol/L 5-15 [facility] BUN/creatinine ratioOrdered By: Daniele Salazar on 01-02-2025 Urea nitrogen/Creatinine [Mass ratio] 20.3 mg/mg High - [facility] Basic Metabolic Profile (BMP )on 01-02-2025 BUN/CRE 20.3 RATIO High - [facility] Comment on above: Performed By: #### L 500.2500 ####[facility] [address] [place], [address] Calcium [Mass/Vol] 8.9 mg/dL Normal 7.6-11.0 [facility] Comment on above: Performed By: #### L 500.2500 ####[facility] [address] [place], [address] Chloride [Moles/Vol] 103 mmol/L Normal 98-108 [facility] Comment on above: Performed By: #### L 500.2500 ####[facility] [address] [place], [address] CO2 [Moles/Vol] 25.0 mmol/L Normal 21.0-32.0 [facility] Comment on above: Performed By: #### L 500.2500 ####[facility] [address] [place], [address] Creatinine [Mass/Vol] 1.15 mg/dL Normal 0.70-1.20 [facility] Comment on above: Performed By: #### L 500.2500 ####[facility] [address] [place], [address] GAP 11 Normal 5-15 [facility] Comment on above: Performed By: #### L 500.2500 ####[facility] [address] [place], [address] GFR/1.73 sq M.predicted among non-blacks MDRD (S/P/Bld) [Vol rate/Area] 51 mL/min/{1.73_m2} Low >60 [facility] Comment on above: Result Comment: mL/m in/1.73m2 CKD-EPI Creatinine Equation (2020) Performed By: #### L 500.2500 ####[facility] [address] [place], [address] Glucose [Mass/Vol] 101 mg/dL High 70-99 [facility] Comment on above: Performed By: #### L 500.2500 ####[facility] [address] [place], [address] Potassium [Moles/Vol] 4.7 mmol/L Normal 3.3-5.1 [facility] Comment on above: Performed By: #### L 500.2500 ####[facility] [address] [place], [address] Sodium [Moles/Vol] 139 mmol/L Normal 133-145 [facility] Comment on above: Performed By: #### L 500.2500 ####[facility] [address] [place], [address] Urea nitrogen [Mass/Vol] 23 mg/dL High 4-19 [facility] Comment on above: Performed By: #### L 500.2500 ####[facility] [address] [place], [address] Carbon dioxide, total [Moles /volume] in Central venous bloodOrdered By: Daniele Salazar on 01-02-2025 CO2 [Moles/Vol] 25.0 mmol/L 21.0-32.0 [facility] Chloride assayOrdered By: Zachariah Salazar on 01-02-2025 Chloride [Moles/Vol] 103 mmol/L 98-108 [facility] Glomerular filtration rate ( GFR) estimation/1.73 sq m using serum, plasma, or whole bOrdered By: Daniele Salazar on 01-02-2025 GFR/1.73 sq M.predicted among non-blacks MDRD (S/P/Bld) [Vol rate/Area] 51 mL/min/{1.73_m2} Low >60 [facility] Comment on above: mL/min/1.73m2 CKD-EP I Creatinine Equation (2020) Potassium measurement (mass/ volume)Ordered By: Daniele Salazar on 01-02-2025 Potassium (Unsp spec) [Mass/Vol] 4.7 mmol/L 3.3-5.1 [facility] Serum creatinine measurement (mass/volume)Ordered By: Daniele Salazar on 01-02-2025 Creatinine [Mass/Vol] 1.15 mg/dL 0.70-1.20 [facility] Serum glucose measurement (m ass/volume)Ordered By: Daniele Salazar on 01-02-2025 Glucose [Mass/Vol] 101 mg/dL High 70-99 [facility] Serum or plasma calcium yovani urement (mass/volume)Ordered By: Daniele Salazar 01-02-2025 Calcium [Mass/Vol] 8.9 mg/dL 7.6-11.0 [facility] Serum or plasma urea nitroge n measurement (mass/volume)Ordered By: Daniele Salazar 01-02-2025 Urea nitrogen [Mass/Vol] 23 mg/dL High 4-19 [facility] Sodium levelOrdered By: Daniele Salazar on 01-02-2025 Sodium [Moles/Vol] 139 mmol/L 133-145 [facility] Absolute lymphocyte countOrd ered By: Daniele Salazar on 12-21-2024 Lymphocytes Auto (Unsp spec) [#/Vol] 2.89 10*3/uL 0.83-4.51 [facility] Absolute neutrophil countOrd ered By: Daniele Salazar on 12-21-2024 Neutrophils (Bld) [#/Vol] 5.3 10*3/uL 2.0-7.7 [facility] Anion gap in Serum or Plasma Ordered By: Daniele Salazar on 12-21-2024 Anion gap [Moles/Vol] 10 mmol/L 5-15 [facility] Automated lymphocyte count a s percentage of total leukocytesOrdered By: Daniele Salazar on 12-21-2024 Lymphocytes/100 WBC Auto (Unsp spec) 32.3 % - [facility] BUN/creatinine ratioOrdered By: Daniele Salazar on 12-21-2024 Urea nitrogen/Creatinine [Mass ratio] 19.6 mg/mg 10-20 [facility] Basophil percentageOrdered B y: Daniele Salazar on 12-21-2024 Basophils/100 WBC (Bld) 0.3 % 0-1 [facility] Bilirubin, totalOrdered By: Daniele Salazar on 12-21-2024 Bilirubin [Mass/Vol] mg/dL 0.00-1.30 [facility] CBC W/Diff, Automatedon 11-30 Absolute Lymph 2.89 X10 3/uL Normal 0.83-4.51 [facility] Comment on above: Performed By: #### L 501.9520, L500.4050, L500.4100, L506.1001, L100.0100, L3890.6301 ####[facility] [address] [place], [address] Absolute Neut 5.3 X10 3/uL Normal 2.0-7.7 [facility] Comment on above: Performed By: #### L 501.9520, L500.4050, L500.4100, L506.1001, L100.0100, L3890.6301 ####[facility] [address] [place], [address] Basophils/100 WBC (Bld) 0.3 % Normal 0-1 [facility] Comment on above: Performed By: #### L 501.9520, L500.4050, L500.4100, L506.1001, L100.0100, L3890.6301 ####[facility] [address] [place], [address] Eosinophils/100 WBC (Bld) 1.9 % Normal 0-5 [facility] Comment on above: Performed By: #### L 501.9520, L500.4050, L500.4100, L506.1001, L100.0100, L3890.6301 ####[facility] [address] [place], [address] Erythrocyte distribution width (RBC) [Ratio] 15.0 % High 11.6-14.6 [facility] Comment on above: Performed By: #### L 501.9520, L500.4050, L500.4100, L506.1001, L100.0100, L3890.6301 ####[facility] [address] [place], [address] Hematocrit (Bld) [Volume fraction] 41.7 % Normal 37-47 [facility] Comment on above: Performed By: #### L 501.9520, L500.4050, L500.4100, L506.1001, L100.0100, L3890.6301 ####[facility] [address] [place], [address] Hemoglobin (Bld) [Mass/Vol] 12.6 g/dL Normal 12.0-15.0 [facility] Comment on above: Performed By: #### L 501.9520, L500.4050, L500.4100, L506.1001, L100.0100, L3890.6301 ####[facility] [address] [place], [address] IG% 0.300 Normal 0.0-0.9 [facility] Comment on above: Result Comment: IG% - Immature Granulocytes (promyelocytes, myelocytes andmetamyelocytes) > 1% indicates that a LEFT SHIFT is Present. Performed By: #### L 501.9520, L500.4050, L500.4100, L506.1001, L100.0100, L3890.6301 ####[facility] [address] [place], [address] Lymphocytes/100 WBC (Bld) 32.3 % Normal 19-41 [facility] Comment on above: Performed By: #### L 501.9520, L500.4050, L500.4100, L506.1001, L100.0100, L3890.6301 ####[facility] [address] [place], [address] MCH (RBC) [Entitic mass] 27.9 pg Normal 27.0-32.0 [facility] Comment on above: Performed By: #### L 501.9520, L500.4050, L500.4100, L506.1001, L100.0100, L3890.6301 ####[facility] [address] [place], [address] MCHC (RBC) [Mass/Vol] 30.2 g/dL Low 32-36 [facility] Comment on above: Performed By: #### L 501.9520, L500.4050, L500.4100, L506.1001, L100.0100, L3890.6301 ####[facility] [address] [place], [address] MCV (RBC) [Entitic vol] 92.3 fL Normal 81-99 [facility] Comment on above: Performed By: #### L 501.9520, L500.4050, L500.4100, L506.1001, L100.0100, L3890.6301 ####[facility] [address] [place], [address] Monocytes/100 WBC (Bld) 5.9 % Normal 0-10 [facility] Comment on above: Performed By: #### L 501.9520, L500.4050, L500.4100, L506.1001, L100.0100, L3890.6301 ####[facility] [address] [place], [address] Neutrophils/100 WBC (Bld) 59.3 % Normal 47-70 [facility] Comment on above: Performed By: #### L 501.9520, L500.4050, L500.4100, L506.1001, L100.0100, L3890.6301 ####[facility] [address] [place], [address] Nucleated RBC (Bld) [#/Vol] 0 10*3/uL Normal 0-5 [facility] Comment on above: Performed By: #### L 501.9520, L500.4050, L500.4100, L506.1001, L100.0100, L3890.6301 ####[facility] [address] [place], [address] Platelet mean volume (Bld) [Entitic vol] 10.0 fL Normal 6.2-12.0 [facility] Comment on above: Performed By: #### L 501.9520, L500.4050, L500.4100, L506.1001, L100.0100, L3890.6301 ####[facility] [address] [place], [address] Platelets (Bld) [#/Vol] 254 10*3/uL Normal 150-450 [facility] Comment on above: Performed By: #### L 501.9520, L500.4050, L500.4100, L506.1001, L100.0100, L3890.6301 ####[facility] [address] [place], [address] RBC (Bld) [#/Vol] 4.52 10*6/uL Normal 4.2-5.4 [facility] Comment on above: Performed By: #### L 501.9520, L500.4050, L500.4100, L506.1001, L100.0100, L3890.6301 ####[facility] [address] [place], [place], [address] RDW SD 50.9 fl High 35.1-43.9 [facility] Comment on above: Performed By: #### L 501.9520, L500.4050, L500.4100, L506.1001, L100.0100, L3890.6301 ####[facility] [address] [place], [place], [id number] WBC (Bld) [#/Vol] 9.0 10*3/uL Normal 4.4-11.0 [facility] Comment on above: Performed By: #### L 501.9520, L500.4050, L500.4100, L506.1001, L100.0100, L3890.6301 ####[facility] [address] [place], [place], [address] Calculated very low density lipoprotein (VLDL) cholesterol measurementOrdered By: Daniele Salazar on 12-21-2024 Calculated very low density lipoprotein (VLDL) cholesterol measurement 51 mg/dL High 5-40 [facility] VLDL Cholesterol 51 mg/dL High 5-40 [facility] Carbon dioxide, total [Moles /volume] in Central venous bloodOrdered By: Daniele Salazar on 12-21-2024 CO2 [Moles/Vol] 26.9 mmol/L 21.0-32.0 [facility] Chloride assayOrdered By: Zachariah Salazar on 12-21-2024 Chloride [Moles/Vol] 102 mmol/L 98-108 [facility] Comprehensive Metabolic Prof ilon 12-21-2024 Albumin [Mass/Vol] 3.7 g/dL Normal 3.4-4.8 [facility] Comment on above: Performed By: #### L 501.9520, L500.4050, L500.4100, L506.1001, L100.0100, L3890.6301 ####[facility] [address] [place], [address] Albumin/Globulin [Mass ratio] 1.5 {ratio} Normal 0.9-2.4 [facility] Comment on above: Performed By: #### L 501.9520, L500.4050, L500.4100, L506.1001, L100.0100, L3890.6301 ####[facility] [address] [place], [address] ALK PHOS 87 U/L Normal 35-104 [facility] Comment on above: Performed By: #### L 501.9520, L500.4050, L500.4100, L506.1001, L100.0100, L3890.6301 ####[facility] [address] [place], [address] ALT [Catalytic activity/Vol] 10 U/L Normal <=34 [facility] Comment on above: Performed By: #### L 501.9520, L500.4050, L500.4100, L506.1001, L100.0100, L3890.6301 ####[facility] [address] [place], [address] AST [Catalytic activity/Vol] 17 U/L Normal <=31 [facility] Comment on above: Performed By: #### L 501.9520, L500.4050, L500.4100, L506.1001, L100.0100, L3890.6301 ####[facility] [address] [place], [address] BUN/CRE 19.6 RATIO Normal 10-20 [facility] Comment on above: Performed By: #### L 501.9520, L500.4050, L500.4100, L506.1001, L100.0100, L3890.6301 ####[facility] [address] [place], [address] Calcium [Mass/Vol] 8.7 mg/dL Normal 7.6-11.0 [facility] Comment on above: Performed By: #### L 501.9520, L500.4050, L500.4100, L506.1001, L100.0100, L3890.6301 ####[facility] [address] [place], [address] Chloride [Moles/Vol] 102 mmol/L Normal 98-108 [facility] Comment on above: Performed By: #### L 501.9520, L500.4050, L500.4100, L506.1001, L100.0100, L3890.6301 ####[facility] [address] [place], [address] CO2 [Moles/Vol] 26.9 mmol/L Normal 21.0-32.0 [facility] Comment on above: Performed By: #### L 501.9520, L500.4050, L500.4100, L506.1001, L100.0100, L3890.6301 ####[facility] [address] [place], [address] Creatinine [Mass/Vol] 1.06 mg/dL Normal 0.70-1.20 [facility] Comment on above: Performed By: #### L 501.9520, L500.4050, L500.4100, L506.1001, L100.0100, L3890.6301 ####[facility] [address] [place], [address] GAP 10 Normal 5-15 [facility] Comment on above: Performed By: #### L 501.9520, L500.4050, L500.4100, L506.1001, L100.0100, L3890.6301 ####[facility] [address] [place], [address] GFR/1.73 sq M.predicted among non-blacks MDRD (S/P/Bld) [Vol rate/Area] 56 mL/min/{1.73_m2} Low >60 [facility] Comment on above: Result Comment: mL/m in/1.73m2 CKD-EPI Creatinine Equation (2020) Performed By: #### L 501.9520, L500.4050, L500.4100, L506.1001, L100.0100, L3890.6301 ####[facility] [address] [place], [address] Globulin (S) [Mass/Vol] 2.5 g/dL Normal 2.2-4.2 [facility] Comment on above: Performed By: #### L 501.9520, L500.4050, L500.4100, L506.1001, L100.0100, L3890.6301 ####[facility] [address] [place], [address] Glucose [Mass/Vol] 105 mg/dL High 70-99 [facility] Comment on above: Performed By: #### L 501.9520, L500.4050, L500.4100, L506.1001, L100.0100, L3890.6301 ####[facility] [address] [place], [address] Potassium [Moles/Vol] 5.2 mmol/L High 3.3-5.1 [facility] Comment on above: Performed By: #### L 501.9520, L500.4050, L500.4100, L506.1001, L100.0100, L3890.6301 ####[facility] [address] [place], [address] Sodium [Moles/Vol] 138 mmol/L Normal 133-145 [facility] Comment on above: Performed By: #### L 501.9520, L500.4050, L500.4100, L506.1001, L100.0100, L3890.6301 ####[facility] [address] [place], [address] T BILI < 0.15 Normal 0.00-1.30 [facility] Comment on above: Performed By: #### L 501.9520, L500.4050, L500.4100, L506.1001, L100.0100, L3890.6301 ####[facility] [address] [place], [address] T PROT 6.2 g/dL Normal 5.9-8.4 [facility] Comment on above: Performed By: #### L 501.9520, L500.4050, L500.4100, L506.1001, L100.0100, L3890.6301 ####[facility] [address] [place], [place], [address] Urea nitrogen [Mass/Vol] 21 mg/dL High 4-19 [facility] Comment on above: Performed By: #### L 501.9520, L500.4050, L500.4100, L506.1001, L100.0100, L3890.6301 ####[facility] [address] [place], [address] Eosinophil percentageOrdered By: [facility] on 12-21-2024 Eosinophils/100 WBC (Bld) 1.9 % 0-5 [facility] Erythrocyte distribution wid th (RBC) [Ratio]Ordered By: [facility] on 12-21-2024 Erythrocyte distribution width (RBC) [Entitic vol] 50.9 fL High 35.1-43.9 [facility] Erythrocyte distribution wid th ratioOrdered By: [facility] on 12-21-2024 Erythrocyte distribution width (RBC) [Ratio] 15.0 % High 11.6-14.6 [facility] Erythrocyte distribution wid th standard deviationOrdered By: [facility] on 12-21-2024 Erythrocyte distribution width (RBC) [Ratio] 50.9 fl High 35.1-43.9 [facility] GFR/1.73 sq M.predicted nick g non-blacks MDRD (S/P/Bld) [Vol rate/Area]Ordered By: Daniele Salazar on 12-21-2024 Estimated GFR (MDRD) Non-Af Amer 56 Low >60 [facility] Comment on above: mL/min/1.73m2 CKD-EP I Creatinine Equation (2020) Glomerular filtration rate ( GFR) estimation/1.73 sq m using serum, plasma, or whole bOrdered By: Daniele Salazar on 12-21-2024 GFR/1.73 sq M.predicted among non-blacks MDRD (S/P/Bld) [Vol rate/Area] 56 mL/min/{1.73_m2} Low >60 [facility] Comment on above: mL/min/1.73m2 CKD-EP I Creatinine Equation (2020) Hematocrit Auto (Bld) [Volum e fraction]Ordered By: Daniele Salazar on 12-21-2024 Hematocrit (Bld) [Volume fraction] 41.7 % 37-47 [facility] Hemoglobin measurementOrdere d By: Daniele Salazar on 12-21-2024 Hemoglobin (Bld) [Mass/Vol] 12.6 g/dL 12.0-15.0 [facility] Hepatitis C Antibodyon 12-21 Hepatitis C Ab Non-Reactive Normal Nonreactive [facility] Comment on above: Result Comment: Reac tive: Presumptive evidence of antibodies to HCV. [facility] recommendations for supplemental testing.Non-Reactive: Antibodies to HCV were not detected; does notexclude the possibility of exposure to HCVReactive Results are presumptive evidence of antibodies toHCV. Follow CDC recommendations for supplemental testing.Order confirmation testing: HCV Quant by PCR testing -HCVPCR #[id number] Non Reactive: < 0.8 Equivocal: >/= 0.8 to < 1.0 Reactive: >/= 1.0The CDC requires that a reactive/equivocal HCV antibodyresult be sent out for confirmation. HCV Quant by PCRtesting. Performed By: #### L 501.7767, L500.4050, L500.4100, L506.1001, L100.0100, L3890.4211 ####[facility] [address] [place], [place], [id number] Hepatitis C antibodyOrdered By: Daniele Salazar on 12-21-2024 Hepatitis C Antibody Non-Reactive Nonreactive [facility] Comment on above: Reactive: Presumptiv e evidence of antibodies to HCV. Follow CDC recommendations for supplemental testing.Non-Reactive: Antibodies to HCV were not detected; does not exclude the possibility of exposure to HCVReactive Results are presumptive evidence of antibodies to HCV. Follow CDC recommendations for supplemental testing.Order confirmation testing: HCV Quant by PCR testing - HCVPCR #[id number] Non Reactive: < 0.8 Equivocal: >/= 0.8 to < 1.0 Reactive: >/= 1.0The CDC requires that a reactive/equivocal HCV antibody result be sent out for confirmation. HCV Quant by PCR testing. Immature granulocytes/100 WB C Auto (Bld)Ordered By: Daniele Salazar on 12-21-2024 Immature granulocytes/100 WBC (Bld) 0.300 % 0.0-0.9 [facility] Comment on above: IG% - Immature Granu locytes (promyelocytes, myelocytes and metamyelocytes) > 1% indicates that a LEFT SHIFT is Present. LDL calc ser/plasOrdered By: Daniele Salazar on 12-21-2024 Cholesterol in LDL [Mass/Vol] 103 mg/dL [facility] Comment on above: Cszwfcgket=725-695 m g/dL & Higher Bxoa=243 mg/dL or greater LDL Cholesterol, Calculated 103 mg/dL [facility] Comment on above: Ujanbyqekv=408-964 m g/dL & Higher Farx=582 mg/dL or greater Laboratory - Chemistry and C hemistry - challengeOrdered By: Daniele Salazar on 12-21-2024 AST [Catalytic activity/Vol] 17 U/L <32 [facility] Lipid Profileon 12-21-2024 CHOL:HDL 3.73 Normal [facility] Comment on above: Performed By: #### L 501.9520, L500.4050, L500.4100, L506.1001, L100.0100, L3890.6301 ####[facility] [address] [place], [address] Cholesterol [Mass/Vol] 211 mg/dL High <=200 [facility] Comment on above: Result Comment: Chol esterol level, Desirable <200 mg/dLBorderline high cholesterol 200-239 mg/dLHigh cholesterol >=240 mg/dLRecommendations of the NCEP Adult Treatment Panel for thefollowing risk-cutoff thresholds for the [place] [facility]. Performed By: #### L 501.9520, L500.4050, L500.4100, L506.1001, L100.0100, L3890.6301 ####[facility] [address] [place], [address] Cholesterol in HDL [Mass/Vol] 57 mg/dL Normal [facility] Comment on above: Result Comment: Ciara onal Cholesterol Education Program (NCEP) guidelines:<40 mg/dL: Low HDL-cholesterol (major risk factor for CHD)>= 60 mg/dL: High HDL-cholesterol (negative risk factor forCHD)HDL-cholesterol is affected by a number of factors, e.g.smoking, exercise, hormones, sex and age. Performed By: #### L 501.9520, L500.4050, L500.4100, L506.1001, L100.0100, L3890.6301 ####[facility] [address] [place], [address] Cholesterol in LDL [Mass/Vol] 103 mg/dL Normal [facility] Comment on above: Result Comment: Bord ontsds=851-510 mg/dL Higher Gebf=366 mg/dL or greater Performed By: #### L 501.9520, L500.4050, L500.4100, L506.1001, L100.0100, L3890.6301 ####[facility] [address] [place], [address] Cholesterol in VLDL [Mass/Vol] 51 mg/dL High 5-40 [facility] Comment on above: Performed By: #### L 501.9520, L500.4050, L500.4100, L506.1001, L100.0100, L3890.6301 ####[facility] [address] [place], [address] Triglyceride [Mass/Vol] 255 mg/dL High [facility] Comment on above: Result Comment: The drugs N-Acetylcysteine and Metamizole may falselydepress this assay.Normal range: <150 mg/dLBorderline High: 150-199 mg/dLHigh: 200-499 mg/dLVery High: >500 mg/dL Performed By: #### L 501.9520, L500.4050, L500.4100, L506.1001, L100.0100, L3890.6301 ####[facility] [address] [place], [address] Lymphocytes Auto (Unsp spec) [#/Vol]Ordered By: Daniele Salazar on 12-21-2024 Lymphocytes (Bld) [#/Vol] 2.89 10*3/uL 0.83-4.51 [facility] Lymphocytes/100 WBC Auto (Un sp spec)Ordered By: Daniele Salazar on 12-21-2024 Lymphocytes/100 WBC (Bld) 32.3 % 19-41 [facility] MCV (mean corpuscular volume ) determinationOrdered By: Daniele Salazar 12-21-2024 MCV (RBC) [Entitic vol] 92.3 fL 81-99 [facility] Mean corpuscular hemoglobin (MCH) determinationOrdered By: Daniele Salazar on 12-21-2024 MCH (RBC) [Entitic mass] 27.9 pg 27.0-32.0 [facility] Mean corpuscular hemoglobin concentration (MCHC) determinationOrdered By: Daniele Salazar 12-21-2024 MCHC (RBC) [Mass/Vol] 30.2 g/dL Low 32-36 [facility] Mean platelet volume determi nationOrdered By: Daniele Salazar on 12-21-2024 Platelet mean volume (Bld) [Entitic vol] 10.0 fL 6.2-12.0 [facility] Monocyte percentageOrdered B y: Daniele Salazar on 12-21-2024 Monocytes/100 WBC (Bld) 5.9 % 0-10 [facility] Neutrophil percentageOrdered By: Daniele Salazar on 12-21-2024 Neutrophils/100 WBC (Bld) 59.3 % 47-70 [facility] Nucleated red blood cell per centageOrdered By: Daniele Salazar on 12-21-2024 Nucleated RBC/100 WBC (Bld) [Ratio] 0 % 0-5 [facility] Platelet countOrdered By: Zachariah Salazar on 12-21-2024 Platelets (Bld) [#/Vol] 254 10*3/uL 150-450 [facility] Potassium (Unsp spec) [Mass/ Vol]Ordered By: Daniele Salazar on 12-21-2024 Potassium [Moles/Vol] 5.2 mmol/L High 3.3-5.1 [facility] Potassium measurement (mass/ volume)Ordered By: Daniele Salazar on 12-21-2024 Potassium (Unsp spec) [Mass/Vol] 5.2 mmol/L High 3.3-5.1 [facility] RBC Auto (Bld) [#/Vol]Ordere d By: Daniele Salazar on 12-21-2024 RBC (Bld) [#/Vol] 4.52 10*6/uL 4.2-5.4 [facility] Screening total cholesterol/ high density lipoprotein (HDL) cholesterol ratioOrdered By: Daniele Salazar on 12-21-2024 Cholesterol.total/Chol esterol in HDL [Mass ratio] 3.73 {ratio} [facility] Serum creatinine measurement (mass/volume)Ordered By: Daniele Salazar on 12-21-2024 Creatinine [Mass/Vol] 1.06 mg/dL 0.70-1.20 [facility] Serum globulin measurementOr dered By: Daniele Salazar 12-21-2024 Globulin (S) [Mass/Vol] 2.5 g/dL 2.2-4.2 [facility] Serum glucose measurement (m ass/volume)Ordered By: Daniele Salazar on 12-21-2024 Glucose [Mass/Vol] 105 mg/dL High 70-99 [facility] Serum or plasma alanine tang otransferase (ALT) measurementOrdered By: Daniele Salazar 12-21-2024 ALT [Catalytic activity/Vol] 10 U/L <35 [facility] Serum or plasma albumin yovani urement (mass/volume)Ordered By: Daniele Martin 12-21-2024 Albumin [Mass/Vol] 3.7 g/dL 3.4-4.8 [facility] Serum or plasma albumin/glob ulin mass ratioOrdered By: Daniele Martin 12-21-2024 Albumin/Globulin [Mass ratio] 1.5 {ratio} 0.9-2.4 [facility] Serum or plasma alkaline tello sphatase measurementOrdered By: Daniele Martin 12-21-2024 ALP [Catalytic activity/Vol] 87 U/L 35-104 [facility] Serum or plasma calcium yovani urement (mass/volume)Ordered By: Daniele Martin 12-21-2024 Calcium [Mass/Vol] 8.7 mg/dL 7.6-11.0 [facility] Serum or plasma cholesterol in HDL measurement (mass/volume)Ordered By: Daniele Martin 12-21-2024 Cholesterol in HDL [Mass/Vol] 57 mg/dL >40 [facility] Comment on above: National Cholesterol Education Program (NCEP) guidelines:<40 mg/dL: Low HDL-cholesterol (major risk factor for CHD)>= 60 mg/dL: High HDL-cholesterol (negative risk factor for CHD)HDL-cholesterol is affected by a number of factors, e.g. smoking, exercise, hormones, sex and age. Serum or plasma cholesterol measurement (mass/volume)Ordered By: Daniele Martin 12-21-2024 Cholesterol [Mass/Vol] 211 mg/dL High <201 [facility] Comment on above: Cholesterol level, D esirable <200 mg/dLBorderline high cholesterol 200-239 mg/dLHigh cholesterol >=240 mg/dLRecommendations of the NCEP Adult Treatment Panel for the following risk-cutoff thresholds for the [place]. Serum or plasma urea nitroge n measurement (mass/volume)Ordered By: Daniele Martin 12-21-2024 Urea nitrogen [Mass/Vol] 21 mg/dL High 4-19 [facility] Sodium levelOrdered By: Daniele Martin 12-21-2024 Sodium [Moles/Vol] 138 mmol/L 133-145 [facility] TSH DL <= 0.005 mIU/L QnOrde red By: Daniele Salazar on 12-21-2024 Thyroid Stimulating Hormone (TSH) 2.570 uIU/mL 0.300-4.200 [facility] TSH Qn 2.570 uIU/mL 0.300-4.200 [facility] Thyroid Stim Hormone (TSH)on 12-21-2024 TSH 2.570 uIU/mL Normal 0.300-4.200 [facility] Comment on above: Performed By: #### L 501.9520, L500.4050, L500.4100, L506.1001, L100.0100, L3890.6301 ####[facility] [address] [place], [address] Total proteinOrdered By: Daniele Salazar on 12-21-2024 Protein [Mass/Vol] 6.2 g/dL 5.9-8.4 [facility] Triglycerides measurementOrd ered By: Daniele Salazar on 12-21-2024 Triglyceride [Mass/Vol] 255 mg/dL High <199 [facility] Comment on above: The drugs N-Acetylcy steine and Metamizole may falsely depress this assay. Normal range: <150 mg/dLBorderline High: 150-199 mg/dLHigh: 200-499 mg/dLVery High: >500 mg/dL Vitamin D, 25-hydroxyOrdered By: Daniele Salazar on 12-21-2024 Vitamin D 25-Hydroxy 18.3 ng/mL Low 30-100 [facility] Comment on above: Vitamin D StatusDefi ciency: <20 ng/mL (50nmol/L)Insufficiency: 20-30 ng/mL (50-75 nmol/L)Sufficiency: 30-100 ng/mL (75-250 nmol/L)Toxicity: >100 ng/mL (>250 nmol/L) Vitamin D,25 Hydroxyon 12-21 Vitamin D 25-OH 18.3 ng/mL Low 30-100 [facility] Comment on above: Result Comment: Nellie min D StatusDeficiency: <20 ng/mL (50nmol/L)Insufficiency: 20-30 ng/mL (50-75 nmol/L)Sufficiency: 30-100 ng/mL (75-250 nmol/L)Toxicity: >100 ng/mL (>250 nmol/L) Performed By: #### L 501.9520, L500.4050, L500.4100, L506.1001, L100.0100, L3890.6301 ####[facility] [address] [place], [address] White blood cell (WBC) count Ordered By: Daniele Salazar on 12-21-2024 WBC (Bld) [#/Vol] 9.0 10*3/uL 4.4-11.0 [facility] Basic Metabolic Profile (BMP )on 11-18-2024 BUN Normal 4-19 [facility] Comment on above: Result Comment: Canc elled via OM: Order cancelled - Patient discharged Performed By: #### L 100.0100, L500.2500 ####[facility] [address] [place], [address] BUN/CRE Normal 10-20 [facility] Comment on above: Result Comment: Canc elled via OM: Order cancelled - Patient discharged Performed By: #### L 100.0100, L500.2500 ####[facility] [address] [place], [address] Calcium Normal 7.6-11.0 [facility] Comment on above: Result Comment: Canc elled via OM: Order cancelled - Patient discharged Performed By: #### L 100.0100, L500.2500 ####[facility] [address] [place], [address] CL Normal 98-108 [facility] Comment on above: Result Comment: Canc elled via OM: Order cancelled - Patient discharged Performed By: #### L 100.0100, L500.2500 ####[facility] [address] [place], [address] CO2 Normal 21.0-32.0 [facility] Comment on above: Result Comment: Canc elled via OM: Order cancelled - Patient discharged Performed By: #### L 100.0100, L500.2500 ####[facility] [address] [place], [address] CREAT,SERUM Normal 0.70-1.20 [facility] Comment on above: Result Comment: Canc elled via OM: Order cancelled - Patient discharged Performed By: #### L 100.0100, L500.2500 ####[facility] [address] [place], [address] eGFR Normal >60 [facility] Comment on above: Result Comment: Canc elled via OM: Order cancelled - Patient discharged Performed By: #### L 100.0100, L500.2500 ####[facility] [address] [place], [address] GAP Normal 5-15 [facility] Comment on above: Result Comment: Canc elled via OM: Order cancelled - Patient discharged Performed By: #### L 100.0100, L500.2500 ####[facility] [address] [place], [address] GLU Normal 70-99 [facility] Comment on above: Result Comment: Canc elled via OM: Order cancelled - Patient discharged Performed By: #### L 100.0100, L500.2500 ####[facility] [address] [place], [address] Potassium Normal 3.3-5.1 [facility] Comment on above: Result Comment: Canc elled via OM: Order cancelled - Patient discharged Performed By: #### L 100.0100, L500.2500 ####[facility] [address] [place], [address] Basic Metabolic Profile (BMP) Normal 133-145 [facility] Comment on above: Result Comment: Canc elled via OM: Order cancelled - Patient discharged Performed By: #### L 100.0100, L500.2500 ####[facility] [address] [place], [address] CBC W/Diff, Automatedon 03-2 Absolute Neut Normal 2.0-7.7 [facility] Comment on above: Result Comment: Canc elled via OM: Order cancelled - Patient discharged Performed By: #### L 100.0100, L500.2500 ####[facility] [address] [place], [address] HCT Normal 37-47 [facility] Comment on above: Result Comment: Canc elled via OM: Order cancelled - Patient discharged Performed By: #### L 100.0100, L500.2500 ####[facility] [address] [place], [address] HGB Normal 12.0-15.0 [facility] Comment on above: Result Comment: Canc elled via OM: Order cancelled - Patient discharged Performed By: #### L 100.0100, L500.2500 ####[facility] [address] [place], [address] MCH Normal 27.0-32.0 [facility] Comment on above: Result Comment: Canc elled via OM: Order cancelled - Patient discharged Performed By: #### L 100.0100, L500.2500 ####[facility] [address] [place], [address] MCHC Normal 32-36 [facility] Comment on above: Result Comment: Canc elled via OM: Order cancelled - Patient discharged Performed By: #### L 100.0100, L500.2500 ####[facility] [address] [place], [address] MCV Normal 81-99 [facility] Comment on above: Result Comment: Canc elled via OM: Order cancelled - Patient discharged Performed By: #### L 100.0100, L500.2500 ####[facility] [address] [place] [place], [address] NEUT% Normal 47-70 [facility] Comment on above: Result Comment: Canc elled via OM: Order cancelled - Patient discharged Performed By: #### L 100.0100, L500.2500 ####[facility] [address] [place], [address] PLT Normal 150-450 [facility] Comment on above: Result Comment: Canc elled via OM: Order cancelled - Patient discharged Performed By: #### L 100.0100, L500.2500 ####[facility] [address] [place], [address] RBC Normal 4.2-5.4 [facility] Comment on above: Result Comment: Canc elled via OM: Order cancelled - Patient discharged Performed By: #### L 100.0100, L500.2500 ####[facility] [address] [place], [address] RDW CV Normal 11.6-14.6 [facility] Comment on above: Result Comment: Canc elled via OM: Order cancelled - Patient discharged Performed By: #### L 100.0100, L500.2500 ####[facility] [address] [place], [address] RDW SD Normal 35.1-43.9 [facility] Comment on above: Result Comment: Canc elled via OM: Order cancelled - Patient discharged Performed By: #### L 100.0100, L500.2500 ####[facility] [address] [place], [address] WBC Normal 4.4-11.0 [facility] Comment on above: Result Comment: Canc elled via OM: Order cancelled - Patient discharged Performed By: #### L 100.0100, L500.2500 ####[facility] [address] [place], [address] Basic Metabolic Profile (BMP )on 11-17-2024 BUN Normal 4-19 [facility] Comment on above: Result Comment: Canc elled via OM: Order cancelled - Patient discharged Performed By: #### L 100.0100, L500.2500 ####[facility] [address] [place], [address] BUN/CRE Normal 10-20 [facility] Comment on above: Result Comment: Canc elled via OM: Order cancelled - Patient discharged Performed By: #### L 100.0100, L500.2500 ####[facility] [address] [place], [address] Calcium Normal 7.6-11.0 [facility] Comment on above: Result Comment: Canc elled via OM: Order cancelled - Patient discharged Performed By: #### L 100.0100, L500.2500 ####[facility] [address] [place], [address] CL Normal 98-108 [facility] Comment on above: Result Comment: Canc elled via OM: Order cancelled - Patient discharged Performed By: #### L 100.0100, L500.2500 ####[facility] [address] [place], [address] CO2 Normal 21.0-32.0 [facility] Comment on above: Result Comment: Canc elled via OM: Order cancelled - Patient discharged Performed By: #### L 100.0100, L500.2500 ####[facility] [address] [place], [address] CREAT,SERUM Normal 0.70-1.20 [facility] Comment on above: Result Comment: Canc elled via OM: Order cancelled - Patient discharged Performed By: #### L 100.0100, L500.2500 ####[facility] [address] [place], [address] eGFR Normal >60 [facility] Comment on above: Result Comment: Canc elled via OM: Order cancelled - Patient discharged Performed By: #### L 100.0100, L500.2500 ####[facility] [address] [place], [address] GAP Normal 5-15 [facility] Comment on above: Result Comment: Canc elled via OM: Order cancelled - Patient discharged Performed By: #### L 100.0100, L500.2500 ####[facility] [address] [place], [address] GLU Normal 70-99 [facility] Comment on above: Result Comment: Canc elled via OM: Order cancelled - Patient discharged Performed By: #### L 100.0100, L500.2500 ####[facility] [address] [place], [address] Potassium Normal 3.3-5.1 [facility] Comment on above: Result Comment: Canc elled via OM: Order cancelled - Patient discharged Performed By: #### L 100.0100, L500.2500 ####[facility] [address] [place], [address] Basic Metabolic Profile (BMP) Normal 133-145 [facility] Comment on above: Result Comment: Canc elled via OM: Order cancelled - Patient discharged Performed By: #### L 100.0100, L500.2500 ####[facility] [facility] [address] [place], [address] CBC W/Diff, Automatedon 03-2 0-2024 Absolute Neut Normal 2.0-7.7 [facility] Comment on above: Result Comment: Canc elled via OM: Order cancelled - Patient discharged Performed By: #### L 100.0100, L500.2500 ####[facility] [address] [place], [address] HCT Normal 37-47 [facility] Comment on above: Result Comment: Canc elled via OM: Order cancelled - Patient discharged Performed By: #### L 100.0100, L500.2500 ####[facility] [address] [place], [address] HGB Normal 12.0-15.0 [facility] Comment on above: Result Comment: Canc elled via OM: Order cancelled - Patient discharged Performed By: #### L 100.0100, L500.2500 ####[facility] [address] [place], [address] MCH Normal 27.0-32.0 [facility] Comment on above: Result Comment: Canc elled via OM: Order cancelled - Patient discharged Performed By: #### L 100.0100, L500.2500 ####[facility] [address] [place], [address] MCHC Normal 32-36 [facility] Comment on above: Result Comment: Canc elled via OM: Order cancelled - Patient discharged Performed By: #### L 100.0100, L500.2500 ####[facility] [address] [place], [address] MCV Normal 81-99 [facility] Comment on above: Result Comment: Canc elled via OM: Order cancelled - Patient discharged Performed By: #### L 100.0100, L500.2500 ####[facility] [address] [place], [address] NEUT% Normal 47-70 [facility] Comment on above: Result Comment: Canc elled via OM: Order cancelled - Patient discharged Performed By: #### L 100.0100, L500.2500 ####[facility] [address] [place], [address] PLT Normal 150-450 [facility] Comment on above: Result Comment: Canc elled via OM: Order cancelled - Patient discharged Performed By: #### L 100.0100, L500.2500 ####[facility] [address] [place], [address] RBC Normal 4.2-5.4 [facility] Comment on above: Result Comment: Canc elled via OM: Order cancelled - Patient discharged Performed By: #### L 100.0100, L500.2500 ####[facility] [address] [place], [address] RDW CV Normal 11.6-14.6 [facility] Comment on above: Result Comment: Canc elled via OM: Order cancelled - Patient discharged Performed By: #### L 100.0100, L500.2500 ####[facility] [address] [place], [address] RDW SD Normal 35.1-43.9 [facility] Comment on above: Result Comment: Canc elled via OM: Order cancelled - Patient discharged Performed By: #### L 100.0100, L500.2500 ####[facility] [address] [place], [address] WBC Normal 4.4-11.0 [facility] Comment on above: Result Comment: Canc elled via OM: Order cancelled - Patient discharged Performed By: #### L 100.0100, L500.2500 ####[facility] [address] [place], [address] Basic Metabolic Profile (BMP )on 11-16-2024 BUN Normal 4-19 [facility] Comment on above: Result Comment: Canc elled via OM: Order cancelled - Patient discharged Performed By: #### L 100.0100, L500.2500 ####[facility] [address] [place], [address] BUN/CRE Normal 10-20 [facility] Comment on above: Result Comment: Canc elled via OM: Order cancelled - Patient discharged Performed By: #### L 100.0100, L500.2500 ####[facility] [address] [place], [address] Calcium Normal 7.6-11.0 [facility] Comment on above: Result Comment: Canc elled via OM: Order cancelled - Patient discharged Performed By: #### L 100.0100, L500.2500 ####[facility] [address] [place], [address] CL Normal 98-108 [facility] Comment on above: Result Comment: Canc elled via OM: Order cancelled - Patient discharged Performed By: #### L 100.0100, L500.2500 ####[facility] [address] [place], [address] CO2 Normal 21.0-32.0 [facility] Comment on above: Result Comment: Canc elled via OM: Order cancelled - Patient discharged Performed By: #### L 100.0100, L500.2500 ####[facility] [address] [place], [address] CREAT,SERUM Normal 0.70-1.20 [facility] Comment on above: Result Comment: Canc elled via OM: Order cancelled - Patient discharged Performed By: #### L 100.0100, L500.2500 ####[facility] [address] [place], [address] eGFR Normal >60 [facility] Comment on above: Result Comment: Canc elled via OM: Order cancelled - Patient discharged Performed By: #### L 100.0100, L500.2500 ####[facility] [address] [place], [address] GAP Normal 5-15 [facility] Comment on above: Result Comment: Canc elled via OM: Order cancelled - Patient discharged Performed By: #### L 100.0100, L500.2500 ####[facility] [address] [place], [address] GLU Normal 70-99 [facility] Comment on above: Result Comment: Canc elled via OM: Order cancelled - Patient discharged Performed By: #### L 100.0100, L500.2500 ####[facility] [address] [place], [address] Potassium Normal 3.3-5.1 [facility] Comment on above: Result Comment: Canc elled via OM: Order cancelled - Patient discharged Performed By: #### L 100.0100, L500.2500 ####[facility] [address] [place], [address] Basic Metabolic Profile (BMP) Normal 133-145 [facility] Comment on above: Result Comment: Canc elled via OM: Order cancelled - Patient discharged Performed By: #### L 100.0100, L500.2500 ####[facility] [address] [place], [address] CBC W/Diff, Automatedon 03- Absolute Neut Normal 2.0-7.7 [facility] Comment on above: Result Comment: Canc elled via OM: Order cancelled - Patient discharged Performed By: #### L 100.0100, L500.2500 ####[facility] [address] [place], [address] HCT Normal 37-47 [facility] Comment on above: Result Comment: Canc elled via OM: Order cancelled - Patient discharged Performed By: #### L 100.0100, L500.2500 ####[facility] [address] [place], [address] HGB Normal 12.0-15.0 [facility] Comment on above: Result Comment: Canc elled via OM: Order cancelled - Patient discharged Performed By: #### L 100.0100, L500.2500 ####[facility] [address] [place], [address] MCH Normal 27.0-32.0 [facility] Comment on above: Result Comment: Canc elled via OM: Order cancelled - Patient discharged Performed By: #### L 100.0100, L500.2500 ####[facility] [address] [place], [address] MCHC Normal 32-36 [facility] Comment on above: Result Comment: Canc elled via OM: Order cancelled - Patient discharged Performed By: #### L 100.0100, L500.2500 ####[facility] [address] [place], [address] MCV Normal 81-99 [facility] Comment on above: Result Comment: Canc elled via OM: Order cancelled - Patient discharged Performed By: #### L 100.0100, L500.2500 ####[facility] [address] [place], [address] NEUT% Normal 47-70 [facility] Comment on above: Result Comment: Canc elled via OM: Order cancelled - Patient discharged Performed By: #### L 100.0100, L500.2500 ####[facility] [address] [place], [address] PLT Normal 150-450 [facility] Comment on above: Result Comment: Canc elled via OM: Order cancelled - Patient discharged Performed By: #### L 100.0100, L500.2500 ####[facility] [address] [place], [address] RBC Normal 4.2-5.4 [facility] Comment on above: Result Comment: Canc elled via OM: Order cancelled - Patient discharged Performed By: #### L 100.0100, L500.2500 ####[facility] [address] [place], [address] RDW CV Normal 11.6-14.6 [facility] Comment on above: Result Comment: Canc elled via OM: Order cancelled - Patient discharged Performed By: #### L 100.0100, L500.2500 ####[facility] [address] [place], [address] RDW SD Normal 35.1-43.9 [facility] Comment on above: Result Comment: Canc elled via OM: Order cancelled - Patient discharged Performed By: #### L 100.0100, L500.2500 ####[facility] [address] [place], [address] WBC Normal 4.4-11.0 [facility] Comment on above: Result Comment: Canc elled via OM: Order cancelled - Patient discharged Performed By: #### L 100.0100, L500.2500 ####[facility] [address] [place], [address] Basic Metabolic Profile (BMP )on 11-15-2024 BUN Normal 4-19 [facility] Comment on above: Result Comment: Canc elled via OM: Order cancelled - Patient discharged Performed By: #### L 500.2500, L100.0100 ####[facility] [address] [place], [address] BUN/CRE Normal 10-20 [facility] Comment on above: Result Comment: Canc elled via OM: Order cancelled - Patient discharged Performed By: #### L 500.2500, L100.0100 ####[facility] [address] [place], [address] Calcium Normal 7.6-11.0 [facility] Comment on above: Result Comment: Canc elled via OM: Order cancelled - Patient discharged Performed By: #### L 500.2500, L100.0100 ####[facility] [address] [place], [address] CL Normal 98-108 [facility] Comment on above: Result Comment: Canc elled via OM: Order cancelled - Patient discharged Performed By: #### L 500.2500, L100.0100 ####[facility] [address] [place], [address] CO2 Normal 21.0-32.0 [facility] Comment on above: Result Comment: Canc elled via OM: Order cancelled - Patient discharged Performed By: #### L 500.2500, L100.0100 ####[facility] [address] [place], [address] CREAT,SERUM Normal 0.70-1.20 [facility] Comment on above: Result Comment: Canc elled via OM: Order cancelled - Patient discharged Performed By: #### L 500.2500, L100.0100 ####[facility] [address] [place], [address] eGFR Normal >60 [facility] Comment on above: Result Comment: Canc elled via OM: Order cancelled - Patient discharged Performed By: #### L 500.2500, L100.0100 ####[facility] [address] [place], [address] GAP Normal 5-15 [facility] Comment on above: Result Comment: Canc elled via OM: Order cancelled - Patient discharged Performed By: #### L 500.2500, L100.0100 ####[facility] [address] [place], [address] GLU Normal 70-99 [facility] Comment on above: Result Comment: Canc elled via OM: Order cancelled - Patient discharged Performed By: #### L 500.2500, L100.0100 ####[facility] [address] [place], [address] Potassium Normal 3.3-5.1 [facility] Comment on above: Result Comment: Canc elled via OM: Order cancelled - Patient discharged Performed By: #### L 500.2500, L100.0100 ####[facility] [address] [place], [address] Basic Metabolic Profile (BMP) Normal 133-145 [facility] Comment on above: Result Comment: Canc elled via OM: Order cancelled - Patient discharged Performed By: #### L 500.2500, L100.0100 ####[facility] [address] [place], [address] CBC W/Diff, Automatedon - Absolute Neut Normal 2.0-7.7 [facility] Comment on above: Result Comment: Canc elled via OM: Order cancelled - Patient discharged Performed By: #### L 500.2500, L100.0100 ####[facility] [address] [place], [address] HCT Normal 37-47 [facility] Comment on above: Result Comment: Canc elled via OM: Order cancelled - Patient discharged Performed By: #### L 500.2500, L100.0100 ####[facility] [address] [place], [address] HGB Normal 12.0-15.0 [facility] Comment on above: Result Comment: Canc elled via OM: Order cancelled - Patient discharged Performed By: #### L 500.2500, L100.0100 ####[facility] [address] [place], [address] MCH Normal 27.0-32.0 [facility] Comment on above: Result Comment: Canc elled via OM: Order cancelled - Patient discharged Performed By: #### L 500.2500, L100.0100 ####[facility] [address] [place], [address] MCHC Normal 32-36 [facility] Comment on above: Result Comment: Canc elled via OM: Order cancelled - Patient discharged Performed By: #### L 500.2500, L100.0100 ####[facility] [address] [place], [address] MCV Normal 81-99 [facility] Comment on above: Result Comment: Canc elled via OM: Order cancelled - Patient discharged Performed By: #### L 500.2500, L100.0100 ####[facility] [address] [place], [address] NEUT% Normal 47-70 [facility] Comment on above: Result Comment: Canc elled via OM: Order cancelled - Patient discharged Performed By: #### L 500.2500, L100.0100 ####[facility] [address] [place], [address] PLT Normal 150-450 [facility] Comment on above: Result Comment: Canc elled via OM: Order cancelled - Patient discharged Performed By: #### L 500.2500, L100.0100 ####[facility] [address] [place], [address] RBC Normal 4.2-5.4 [facility] Comment on above: Result Comment: Canc elled via OM: Order cancelled - Patient discharged Performed By: #### L 500.2500, L100.0100 ####[facility] [address] [place], [address] RDW CV Normal 11.6-14.6 [facility] Comment on above: Result Comment: Canc elled via OM: Order cancelled - Patient discharged Performed By: #### L 500.2500, L100.0100 ####[facility] [address] [place], [address] RDW SD Normal 35.1-43.9 [facility] Comment on above: Result Comment: Canc elled via OM: Order cancelled - Patient discharged Performed By: #### L 500.2500, L100.0100 ####[facility] [address] [place], [address] WBC Normal 4.4-11.0 [facility] Comment on above: Result Comment: Canc elled via OM: Order cancelled - Patient discharged Performed By: #### L 500.2500, L100.0100 ####[facility] [address] [place], [address] Basic Metabolic Profile (BMP )on 11-14-2024 BUN Normal 4-19 [facility] Comment on above: Result Comment: Canc elled via OM: Order cancelled - Patient discharged Performed By: #### L 500.2500, L100.0100 ####[facility] [address] [place], [address] BUN/CRE Normal 10-20 [facility] Comment on above: Result Comment: Canc elled via OM: Order cancelled - Patient discharged Performed By: #### L 500.2500, L100.0100 ####[facility] [address] [place], [address] Calcium Normal 7.6-11.0 [facility] Comment on above: Result Comment: Canc elled via OM: Order cancelled - Patient discharged Performed By: #### L 500.2500, L100.0100 ####[facility] [address] [place], [address] CL Normal 98-108 [facility] Comment on above: Result Comment: Canc elled via OM: Order cancelled - Patient discharged Performed By: #### L 500.2500, L100.0100 ####[facility] [address] [place], [address] CO2 Normal 21.0-32.0 [facility] Comment on above: Result Comment: Canc elled via OM: Order cancelled - Patient discharged Performed By: #### L 500.2500, L100.0100 ####[facility] [address] [place], [address] CREAT,SERUM Normal 0.70-1.20 [facility] Comment on above: Result Comment: Canc elled via OM: Order cancelled - Patient discharged Performed By: #### L 500.2500, L100.0100 ####[facility] [address] [place], [address] eGFR Normal >60 [facility] Comment on above: Result Comment: Canc elled via OM: Order cancelled - Patient discharged Performed By: #### L 500.2500, L100.0100 ####[facility] [address] [place], [address] GAP Normal 5-15 [facility] Comment on above: Result Comment: Canc elled via OM: Order cancelled - Patient discharged Performed By: #### L 500.2500, L100.0100 ####[facility] [address] [place], [address] GLU Normal 70-99 [facility] Comment on above: Result Comment: Canc elled via OM: Order cancelled - Patient discharged Performed By: #### L 500.2500, L100.0100 ####[facility] [address] [place], [address] Potassium Normal 3.3-5.1 [facility] Comment on above: Result Comment: Canc elled via OM: Order cancelled - Patient discharged Performed By: #### L 500.2500, L100.0100 ####[facility] [address] [place], [address] Basic Metabolic Profile (BMP) Normal 133-145 [facility] Comment on above: Result Comment: Canc elled via OM: Order cancelled - Patient discharged Performed By: #### L 500.2500, L100.0100 ####[facility] [address] [place], [address] CBC W/Diff, Automatedon 03- Absolute Neut Normal 2.0-7.7 [facility] Comment on above: Result Comment: Canc elled via OM: Order cancelled - Patient discharged Performed By: #### L 500.2500, L100.0100 ####[facility] [address] [place], [address] HCT Normal 37-47 [facility] Comment on above: Result Comment: Canc elled via OM: Order cancelled - Patient discharged Performed By: #### L 500.2500, L100.0100 ####[facility] [address] [place], [address] HGB Normal 12.0-15.0 [facility] Comment on above: Result Comment: Canc elled via OM: Order cancelled - Patient discharged Performed By: #### L 500.2500, L100.0100 ####[facility] [address] [place], [address] MCH Normal 27.0-32.0 [facility] Comment on above: Result Comment: Canc elled via OM: Order cancelled - Patient discharged Performed By: #### L 500.2500, L100.0100 ####[facility] [address] [place], [address] MCHC Normal 32-36 [facility] Comment on above: Result Comment: Canc elled via OM: Order cancelled - Patient discharged Performed By: #### L 500.2500, L100.0100 ####[facility] [address] [place], [address] MCV Normal 81-99 [facility] Comment on above: Result Comment: Canc elled via OM: Order cancelled - Patient discharged Performed By: #### L 500.2500, L100.0100 ####[facility] [address] [place], [address] NEUT% Normal 47-70 [facility] Comment on above: Result Comment: Canc elled via OM: Order cancelled - Patient discharged Performed By: #### L 500.2500, L100.0100 ####[facility] [address] [place], [address] PLT Normal 150-450 [facility] Comment on above: Result Comment: Canc elled via OM: Order cancelled - Patient discharged Performed By: #### L 500.2500, L100.0100 ####[facility] [address] [place], [address] RBC Normal 4.2-5.4 [facility] Comment on above: Result Comment: Canc elled via OM: Order cancelled - Patient discharged Performed By: #### L 500.2500, L100.0100 ####[facility] [address] [place], [address] RDW CV Normal 11.6-14.6 [facility] Comment on above: Result Comment: Canc elled via OM: Order cancelled - Patient discharged Performed By: #### L 500.2500, L100.0100 ####[facility] [address] [place], [address] RDW SD Normal 35.1-43.9 [facility] Comment on above: Result Comment: Canc elled via OM: Order cancelled - Patient discharged Performed By: #### L 500.2500, L100.0100 ####[facility] [address] [place], [address] WBC Normal 4.4-11.0 [facility] Comment on above: Result Comment: Canc elled via OM: Order cancelled - Patient discharged Performed By: #### L 500.2500, L100.0100 ####[facility] [address] [place], [address] Basic Metabolic Profile (BMP )on 11-13-2024 BUN Normal 4-19 [facility] Comment on above: Result Comment: Canc elled via OM: Order cancelled - Patient discharged Performed By: #### L 500.2500, L100.0100 ####[facility] [address] [place], [address] BUN/CRE Normal 10-20 [facility] Comment on above: Result Comment: Canc elled via OM: Order cancelled - Patient discharged Performed By: #### L 500.2500, L100.0100 ####[facility] [address] [place], [address] Calcium Normal 7.6-11.0 [facility] Comment on above: Result Comment: Canc elled via OM: Order cancelled - Patient discharged Performed By: #### L 500.2500, L100.0100 ####[facility] [address] [place], [address] CL Normal 98-108 [facility] Comment on above: Result Comment: Canc elled via OM: Order cancelled - Patient discharged Performed By: #### L 500.2500, L100.0100 ####[facility] [address] [place], [address] CO2 Normal 21.0-32.0 [facility] Comment on above: Result Comment: Canc elled via OM: Order cancelled - Patient discharged Performed By: #### L 500.2500, L100.0100 ####[facility] [address] [place], [address] CREAT,SERUM Normal 0.70-1.20 [facility] Comment on above: Result Comment: Canc elled via OM: Order cancelled - Patient discharged Performed By: #### L 500.2500, L100.0100 ####[facility] [address] [place], [address] eGFR Normal >60 [facility] Comment on above: Result Comment: Canc elled via OM: Order cancelled - Patient discharged Performed By: #### L 500.2500, L100.0100 ####[facility] [address] [place], [address] GAP Normal 5-15 [facility] Comment on above: Result Comment: Canc elled via OM: Order cancelled - Patient discharged Performed By: #### L 500.2500, L100.0100 ####[facility] [address] [place], [address] GLU Normal 70-99 [facility] Comment on above: Result Comment: Canc elled via OM: Order cancelled - Patient discharged Performed By: #### L 500.2500, L100.0100 ####[facility] [address] [place], [address] Potassium Normal 3.3-5.1 [facility] Comment on above: Result Comment: Canc elled via OM: Order cancelled - Patient discharged Performed By: #### L 500.2500, L100.0100 ####[facility] [address] [place], [address] Basic Metabolic Profile (BMP) Normal 133-145 [facility] Comment on above: Result Comment: Canc elled via OM: Order cancelled - Patient discharged Performed By: #### L 500.2500, L100.0100 ####[facility] [address] [place], [address] CBC W/Diff, Automatedon 03-1 Absolute Neut Normal 2.0-7.7 [facility] Comment on above: Result Comment: Canc elled via OM: Order cancelled - Patient discharged Performed By: #### L 500.2500, L100.0100 ####[facility] [address] [place], [address] HCT Normal 37-47 [facility] Comment on above: Result Comment: Canc elled via OM: Order cancelled - Patient discharged Performed By: #### L 500.2500, L100.0100 ####[facility] [address] [place], [address] HGB Normal 12.0-15.0 [facility] Comment on above: Result Comment: Canc elled via OM: Order cancelled - Patient discharged Performed By: #### L 500.2500, L100.0100 ####[facility] [address] [place], [address] MCH Normal 27.0-32.0 [facility] Comment on above: Result Comment: Canc elled via OM: Order cancelled - Patient discharged Performed By: #### L 500.2500, L100.0100 ####[facility] [address] [place], [address] MCHC Normal 32-36 [facility] Comment on above: Result Comment: Canc elled via OM: Order cancelled - Patient discharged Performed By: #### L 500.2500, L100.0100 ####[facility] [address] [place], [address] MCV Normal 81-99 [facility] Comment on above: Result Comment: Canc elled via OM: Order cancelled - Patient discharged Performed By: #### L 500.2500, L100.0100 ####[facility] [address] [place], [address] NEUT% Normal 47-70 [facility] Comment on above: Result Comment: Canc elled via OM: Order cancelled - Patient discharged Performed By: #### L 500.2500, L100.0100 ####[facility] [address] [place], [address] PLT Normal 150-450 [facility] Comment on above: Result Comment: Canc elled via OM: Order cancelled - Patient discharged Performed By: #### L 500.2500, L100.0100 ####[facility] [address] [place], [address] RBC Normal 4.2-5.4 [facility] Comment on above: Result Comment: Canc elled via OM: Order cancelled - Patient discharged Performed By: #### L 500.2500, L100.0100 ####[facility] [address] [place], [address] RDW CV Normal 11.6-14.6 [facility] Comment on above: Result Comment: Canc elled via OM: Order cancelled - Patient discharged Performed By: #### L 500.2500, L100.0100 ####[facility] [address] [place], [address] RDW SD Normal 35.1-43.9 [facility] Comment on above: Result Comment: Canc elled via OM: Order cancelled - Patient discharged Performed By: #### L 500.2500, L100.0100 ####[facility] [address] [place], [address] WBC Normal 4.4-11.0 [facility] Comment on above: Result Comment: Canc elled via OM: Order cancelled - Patient discharged Performed By: #### L 500.2500, L100.0100 ####[facility] [address] [place], [address] Absolute lymphocyte countOrd ered By: Chana Staley on 11-12-2024 Lymphocytes Auto (Unsp spec) [#/Vol] 0.86 10*3/uL 0.83-4.51 [facility] Absolute neutrophil countOrd ered By: Chana Staley on 11-12-2024 Neutrophils (Bld) [#/Vol] 5.2 10*3/uL 2.0-7.7 [facility] Anion gap in Serum or Plasma Ordered By: Chana Staley on 11-12-2024 Anion gap [Moles/Vol] 11 mmol/L 01-12 [facility] Automated lymphocyte count a s percentage of total leukocytesOrdered By: Chana Staley on 11-12-2024 Lymphocytes/100 WBC Auto (Unsp spec) 13.6 % Low 19-41 [facility] BUN/creatinine ratioOrdered By: Chana Staley on 11-12-2024 Urea nitrogen/Creatinine [Mass ratio] 26.2 mg/mg High - [facility] Basic Metabolic Profile (BMP )on 11-12-2024 BUN/CRE 26.2 RATIO High - [facility] Comment on above: Performed By: #### L 100.0100, L500.2500 ####[facility] [address] [place], [address] Calcium [Mass/Vol] 9.1 mg/dL Normal 7.6-11.0 [facility] Comment on above: Performed By: #### L 100.0100, L500.2500 ####[facility] [address] [place], [address] Chloride [Moles/Vol] 101 mmol/L Normal 98-108 [facility] Comment on above: Performed By: #### L 100.0100, L500.2500 ####[facility] [address] [place], [address] CO2 [Moles/Vol] 26.7 mmol/L Normal 21.0-32.0 [facility] Comment on above: Performed By: #### L 100.0100, L500.2500 ####[facility] [address] [place], [address] Creatinine [Mass/Vol] 1.07 mg/dL Normal 0.70-1.20 [facility] Comment on above: Performed By: #### L 100.0100, L500.2500 ####[facility] [address] [place], [address] ECRCL 45.14 ml/min Low 50-250 [facility] Comment on above: Performed By: #### L 100.0100, L500.2500 ####[facility] [address] [place], [address] GAP 11 Normal 5-15 [facility] Comment on above: Performed By: #### L 100.0100, L500.2500 ####[facility] [address] [place], [address] GFR/1.73 sq M.predicted among non-blacks MDRD (S/P/Bld) [Vol rate/Area] 56 mL/min/{1.73_m2} Low >60 [facility] Comment on above: Result Comment: mL/m in/1.73m2 CKD-EPI Creatinine Equation (2020) Performed By: #### L 100.0100, L500.2500 ####[facility] [address] [place], [address] Glucose [Mass/Vol] 130 mg/dL High 70-99 [facility] Comment on above: Performed By: #### L 100.0100, L500.2500 ####[facility] [address] [place], [address] Potassium [Moles/Vol] 5.0 mmol/L Normal 3.3-5.1 [facility] Comment on above: Performed By: #### L 100.0100, L500.2500 ####[facility] [address] [place], [address] Sodium [Moles/Vol] 139 mmol/L Normal 133-145 [facility] Comment on above: Performed By: #### L 100.0100, L500.2500 ####[facility] [address] [place], [address] Urea nitrogen [Mass/Vol] 28 mg/dL High 4-19 [facility] Comment on above: Performed By: #### L 100.0100, L500.2500 ####[facility] [address] [place], [address] Basophil percentageOrdered B y: Chana Staley on 11-12-2024 Basophils/100 WBC (Bld) 0.0 % 0-1 [facility] CBC W/Diff, Automatedon 03- Absolute Lymph 0.86 X10 3/uL Normal 0.83-4.51 [facility] Comment on above: Performed By: #### L 100.0100, L500.2500 ####[facility] [address] [place], [address] Absolute Neut 5.2 X10 3/uL Normal 2.0-7.7 [facility] Comment on above: Performed By: #### L 100.0100, L500.2500 ####[facility] [address] [place], [address] Basophils/100 WBC (Bld) 0.0 % Normal 0-1 [facility] Comment on above: Performed By: #### L 100.0100, L500.2500 ####[facility] [address] [place], [address] Eosinophils/100 WBC (Bld) 0.0 % Normal 0-5 [facility] Comment on above: Performed By: #### L 100.0100, L500.2500 ####[facility] [address] [place], [address] Erythrocyte distribution width (RBC) [Ratio] 14.9 % High 11.6-14.6 [facility] Comment on above: Performed By: #### L 100.0100, L500.2500 ####[facility] [address] [place], [address] Hematocrit (Bld) [Volume fraction] 43.7 % Normal 37-47 [facility] Comment on above: Performed By: #### L 100.0100, L500.2500 ####[facility] [address] [place], [address] Hemoglobin (Bld) [Mass/Vol] 13.4 g/dL Normal 12.0-15.0 [facility] Comment on above: Performed By: #### L 100.0100, L500.2500 ####[facility] [address] [place], [address] IG% 0.200 Normal 0.0-0.9 [facility] Comment on above: Result Comment: IG% - Immature Granulocytes (promyelocytes, myelocytes andmetamyelocytes) > 1% indicates that a LEFT SHIFT is Present. Performed By: #### L 100.0100, L500.2500 ####[facility] [address] [place], [address] Lymphocytes/100 WBC (Bld) 13.6 % Low 19-41 [facility] Comment on above: Performed By: #### L 100.0100, L500.2500 ####[facility] [address] [place], [address] MCH (RBC) [Entitic mass] 27.6 pg Normal 27.0-32.0 [facility] Comment on above: Performed By: #### L 100.0100, L500.2500 ####[facility] [address] [place], [address] MCHC (RBC) [Mass/Vol] 30.7 g/dL Low 32-36 [facility] Comment on above: Performed By: #### L 100.0100, L500.2500 ####[facility] [address] [place], [address] MCV (RBC) [Entitic vol] 90.1 fL Normal 81-99 [facility] Comment on above: Performed By: #### L 100.0100, L500.2500 ####[facility] [address] [place], [address] Monocytes/100 WBC (Bld) 3.8 % Normal 0-10 [facility] Comment on above: Performed By: #### L 100.0100, L500.2500 ####[facility] [address] [place], [address] Neutrophils/100 WBC (Bld) 82.4 % High 47-70 [facility] Comment on above: Performed By: #### L 100.0100, L500.2500 ####[facility] [address] [place], [address] Nucleated RBC (Bld) [#/Vol] 0 10*3/uL Normal 0-5 [facility] Comment on above: Performed By: #### L 100.0100, L500.2500 ####[facility] [address] [place], [address] Platelet mean volume (Bld) [Entitic vol] 10.0 fL Normal 6.2-12.0 [facility] Comment on above: Performed By: #### L 100.0100, L500.2500 ####[facility] [address] [place], [address] Platelets (Bld) [#/Vol] 228 10*3/uL Normal 150-450 [facility] Comment on above: Performed By: #### L 100.0100, L500.2500 ####[facility] [address] [place], [address] RBC (Bld) [#/Vol] 4.85 10*6/uL Normal 4.2-5.4 [facility] Comment on above: Performed By: #### L 100.0100, L500.2500 ####[facility] [address] [place], [address] RDW SD 49.9 fl High 35.1-43.9 [facility] Comment on above: Performed By: #### L 100.0100, L500.2500 ####[facility] [address] [place], [address] WBC (Bld) [#/Vol] 6.3 10*3/uL Normal 4.4-11.0 [facility] Comment on above: Performed By: #### L 100.0100, L500.2500 ####[facility] [address] [place], [address] Carbon dioxide, total [Moles /volume] in Central venous bloodOrdered By: Chana Staley on 11-12-2024 CO2 [Moles/Vol] 26.7 mmol/L 21.0-32.0 [facility] Chloride assayOrdered By: Yoshi Staley on 11-12-2024 Chloride [Moles/Vol] 101 mmol/L 98-108 [facility] Discharge Instructionon 10-29 Discharge Instruction Normal [facility] Discharge Instruction Normal [facility] Eosinophil percentageOrdered By: Chana Staley on 11-12-2024 Eosinophils/100 WBC (Bld) 0.0 % 0-5 [facility] Erythrocyte distribution wid th ratioOrdered By: Chana Staley on 11-12-2024 Erythrocyte distribution width (RBC) [Ratio] 14.9 % High 11.6-14.6 [facility] Erythrocyte distribution wid th standard deviationOrdered By: Chana Staley on 11-12-2024 Erythrocyte distribution width (RBC) [Entitic vol] 49.9 fL High 35.1-43.9 [facility] Erythrocyte distribution width (RBC) [Ratio] 49.9 fl High 35.1-43.9 [facility] Estimation of creatinine carmela aranceOrdered By: Chana Staley on 11-12-2024 Estimated Creatinine Clearance Calc 45.14 ml/min Low 50-250 [facility] GFR/1.73 sq M.predicted nick g non-blacks MDRD (S/P/Bld) [Vol rate/Area]Ordered By: Chana Staley on 11-12-2024 Estimated GFR (MDRD) Non-Af Amer 56 Low >60 [facility] Comment on above: mL/min/1.73m2 CKD-EP I Creatinine Equation (2020) Glomerular filtration rate ( GFR) estimation/1.73 sq m using serum, plasma, or whole bOrdered By: Chana Staley on 11-12-2024 GFR/1.73 sq M.predicted among non-blacks MDRD (S/P/Bld) [Vol rate/Area] 56 mL/min/{1.73_m2} Low >60 [facility] Comment on above: mL/min/1.73m2 CKD-EP I Creatinine Equation (2020) Hematocrit Auto (Bld) [Volum e fraction]Ordered By: Chana Staley on 11-12-2024 Hematocrit (Bld) [Volume fraction] 43.7 % 37-47 [facility] Hemoglobin measurementOrdere d By: Chana Staley on 11-12-2024 Hemoglobin (Bld) [Mass/Vol] 13.4 g/dL 12.0-15.0 [facility] Immature granulocytes/100 WB C Auto (Bld)Ordered By: Chana Staley on 11-12-2024 Immature granulocytes/100 WBC (Bld) 0.200 % 0.0-0.9 [facility] Comment on above: IG% - Immature Granu locytes (promyelocytes, myelocytes and metamyelocytes) > 1% indicates that a LEFT SHIFT is Present. Lymphocytes Auto (Unsp spec) [#/Vol]Ordered By: Chana Staley on 11-12-2024 Lymphocytes (Bld) [#/Vol] 0.86 10*3/uL 0.83-4.51 [facility] Lymphocytes/100 WBC Auto (Un sp spec)Ordered By: Chana Staley on 11-12-2024 Lymphocytes/100 WBC (Bld) 13.6 % Low 19-41 [facility] MCV (mean corpuscular volume ) determinationOrdered By: Chana Staley on 11-12-2024 MCV (RBC) [Entitic vol] 90.1 fL 81-99 [facility] Mean corpuscular hemoglobin (MCH) determinationOrdered By: Chana Staley on 11-12-2024 MCH (RBC) [Entitic mass] 27.6 pg 27.0-32.0 [facility] Mean corpuscular hemoglobin concentration (MCHC) determinationOrdered By: Chana Staley on 11-12-2024 MCHC (RBC) [Mass/Vol] 30.7 g/dL Low 32-36 [facility] Mean platelet volume determi nationOrdered By: Chana Staley on 11-12-2024 Platelet mean volume (Bld) [Entitic vol] 10.0 fL 6.2-12.0 [facility] Monocyte percentageOrdered B y: Chana Staley on 11-12-2024 Monocytes/100 WBC (Bld) 3.8 % 0-10 [facility] Neutrophil percentageOrdered By: Chana Staley on 11-12-2024 Neutrophils/100 WBC (Bld) 82.4 % High 47-70 [facility] Nucleated red blood cell per centageOrdered By: Chana Staley on 11-12-2024 Nucleated RBC/100 WBC (Bld) [Ratio] 0 % 0-5 [facility] Platelet countOrdered By: Yoshi Staley on 11-12-2024 Platelets (Bld) [#/Vol] 228 10*3/uL 150-450 [facility] Potassium (Unsp spec) [Mass/ Vol]Ordered By: Chana Staley on 11-12-2024 Potassium [Moles/Vol] 5.0 mmol/L 3.3-5.1 [facility] Potassium measurement (mass/ volume)Ordered By: Chana Staley on 11-12-2024 Potassium (Unsp spec) [Mass/Vol] 5.0 mmol/L 3.3-5.1 [facility] RBC Auto (Bld) [#/Vol]Ordere d By: Chana Staley on 11-12-2024 RBC (Bld) [#/Vol] 4.85 10*6/uL 4.2-5.4 [facility] Serum creatinine measurement (mass/volume)Ordered By: Chana Staley on 11-12-2024 Creatinine [Mass/Vol] 1.07 mg/dL 0.70-1.20 [facility] Serum glucose measurement (m ass/volume)Ordered By: Chana Staley on 11-12-2024 Glucose [Mass/Vol] 130 mg/dL High 70-99 [facility] Serum or plasma calcium yovani urement (mass/volume)Ordered By: Chana Staley on 11-12-2024 Calcium [Mass/Vol] 9.1 mg/dL 7.6-11.0 [facility] Serum or plasma urea nitroge n measurement (mass/volume)Ordered By: Chana Staley on 11-12-2024 Urea nitrogen [Mass/Vol] 28 mg/dL High 4-19 [facility] Sodium levelOrdered By: Payton Staley on 11-12-2024 Sodium [Moles/Vol] 139 mmol/L 133-145 [facility] White blood cell (WBC) count Ordered By: Chana Staley on 11-12-2024 WBC (Bld) [#/Vol] 6.3 10*3/uL 4.4-11.0 [facility] Bilirubin directOrdered By: Gaurang Donahue on 11-11-2024 Bilirubin.direct [Mass/Vol] mg/dL 0.00-0.30 [facility] Bilirubin, Directon 11-12-19 25 D BILI < 0.08 Normal 0.00-0.30 [facility] Comment on above: Performed By: #### L 501.5200, L300.3900, L501.2300, L501.9520, L100.0100, L501.4700, L500.4050 ####[facility] [address] [place], [place], [id number] Bilirubin, totalOrdered By: Gaurang Donahue on 11-11-2024 Bilirubin [Mass/Vol] mg/dL 0.00-1.30 [facility] Bilirubin.direct [Mass/Vol]O rdered By: Gaurang Donahue on 11-11-2024 Direct Bilirubin < 0.08 mg/dL 0.00-0.30 [facility] CBC W/Diff, Automatedon 10-29 Absolute Lymph 0.55 X10 3/uL Low 0.83-4.51 [facility] Comment on above: Performed By: #### L 501.5200, L300.3900, L501.2300, L501.9520, L100.0100, L501.4700, L500.4050 ####[facility] [address] [place], [address] Absolute Neut 1.7 X10 3/uL Low 2.0-7.7 [facility] Comment on above: Performed By: #### L 501.5200, L300.3900, L501.2300, L501.9520, L100.0100, L501.4700, L500.4050 ####[facility] [address] [place], [address] Basophils/100 WBC (Bld) 0.4 % Normal 0-1 [facility] Comment on above: Performed By: #### L 501.5200, L300.3900, L501.2300, L501.9520, L100.0100, L501.4700, L500.4050 ####[facility] [address] [place], [address] Eosinophils/100 WBC (Bld) 0.0 % Normal 0-5 [facility] Comment on above: Performed By: #### L 501.5200, L300.3900, L501.2300, L501.9520, L100.0100, L501.4700, L500.4050 ####[facility] [address] [place], [address] Erythrocyte distribution width (RBC) [Ratio] 14.7 % High 11.6-14.6 [facility] Comment on above: Performed By: #### L 501.5200, L300.3900, L501.2300, L501.9520, L100.0100, L501.4700, L500.4050 ####[facility] [address] [place], [address] Hematocrit (Bld) [Volume fraction] 40.8 % Normal 37-47 [facility] Comment on above: Performed By: #### L 501.5200, L300.3900, L501.2300, L501.9520, L100.0100, L501.4700, L500.4050 ####[facility] [address] [place], [address] Hemoglobin (Bld) [Mass/Vol] 12.6 g/dL Normal 12.0-15.0 [facility] Comment on above: Performed By: #### L 501.5200, L300.3900, L501.2300, L501.9520, L100.0100, L501.4700, L500.4050 ####[facility] [address] [place], [address] IG% 0.400 Normal 0.0-0.9 [facility] Comment on above: Result Comment: IG% - Immature Granulocytes (promyelocytes, myelocytes andmetamyelocytes) > 1% indicates that a LEFT SHIFT is Present. Performed By: #### L 501.5200, L300.3900, L501.2300, L501.9520, L100.0100, L501.4700, L500.4050 ####[facility] [address] [place], [address] Lymphocytes/100 WBC (Bld) 22.8 % Normal 19-41 [facility] Comment on above: Performed By: #### L 501.5200, L300.3900, L501.2300, L501.9520, L100.0100, L501.4700, L500.4050 ####[facility] [address] [place], [address] MCH (RBC) [Entitic mass] 27.9 pg Normal 27.0-32.0 [facility] Comment on above: Performed By: #### L 501.5200, L300.3900, L501.2300, L501.9520, L100.0100, L501.4700, L500.4050 ####[facility] [address] [place], [address] MCHC (RBC) [Mass/Vol] 30.9 g/dL Low 32-36 [facility] Comment on above: Performed By: #### L 501.5200, L300.3900, L501.2300, L501.9520, L100.0100, L501.4700, L500.4050 ####[facility] [address] [place], [address] MCV (RBC) [Entitic vol] 90.3 fL Normal 81-99 [facility] Comment on above: Performed By: #### L 501.5200, L300.3900, L501.2300, L501.9520, L100.0100, L501.4700, L500.4050 ####[facility] [address] [place], [address] Monocytes/100 WBC (Bld) 4.6 % Normal 0-10 [facility] Comment on above: Performed By: #### L 501.5200, L300.3900, L501.2300, L501.9520, L100.0100, L501.4700, L500.4050 ####[facility] [address] [place], [address] Neutrophils/100 WBC (Bld) 71.8 % High 47-70 [facility] Comment on above: Performed By: #### L 501.5200, L300.3900, L501.2300, L501.9520, L100.0100, L501.4700, L500.4050 ####[facility] [address] [place], [address] Nucleated RBC (Bld) [#/Vol] 0 10*3/uL Normal 0-5 [facility] Comment on above: Performed By: #### L 501.5200, L300.3900, L501.2300, L501.9520, L100.0100, L501.4700, L500.4050 ####[facility] [address] [place], [address] Platelet mean volume (Bld) [Entitic vol] 10.1 fL Normal 6.2-12.0 [facility] Comment on above: Performed By: #### L 501.5200, L300.3900, L501.2300, L501.9520, L100.0100, L501.4700, L500.4050 ####[facility] [address] [place], [address] Platelets (Bld) [#/Vol] 217 10*3/uL Normal 150-450 [facility] Comment on above: Performed By: #### L 501.5200, L300.3900, L501.2300, L501.9520, L100.0100, L501.4700, L500.4050 ####[facility] [address] [place], [address] RBC (Bld) [#/Vol] 4.52 10*6/uL Normal 4.2-5.4 [facility] Comment on above: Performed By: #### L 501.5200, L300.3900, L501.2300, L501.9520, L100.0100, L501.4700, L500.4050 ####[facility] [address] [place], [address] RDW SD 48.3 fl High 35.1-43.9 [facility] Comment on above: Performed By: #### L 501.5200, L300.3900, L501.2300, L501.9520, L100.0100, L501.4700, L500.4050 ####[facility] [address] [place], [address] WBC (Bld) [#/Vol] 2.4 10*3/uL Low 4.4-11.0 [facility] Comment on above: Performed By: #### L 501.5200, L300.3900, L501.2300, L501.9520, L100.0100, L501.4700, L500.4050 ####[facility] [address] [place], [address] Comprehensive Metabolic Prof ilon 11-11-2024 Albumin [Mass/Vol] 3.8 g/dL Normal 3.4-4.8 [facility] Comment on above: Performed By: #### L 501.5200, L300.3900, L501.2300, L501.9520, L100.0100, L501.4700, L500.4050 ####[facility] [address] [place], [address] Albumin/Globulin [Mass ratio] 1.3 {ratio} Normal 0.9-2.4 [facility] Comment on above: Performed By: #### L 501.5200, L300.3900, L501.2300, L501.9520, L100.0100, L501.4700, L500.4050 ####[facility] [address] [place], [address] ALK PHOS 101 U/L Normal 35-104 [facility] Comment on above: Performed By: #### L 501.5200, L300.3900, L501.2300, L501.9520, L100.0100, L501.4700, L500.4050 ####[facility] [address] [place], [address] ALT [Catalytic activity/Vol] 8 U/L Normal <=34 [facility] Comment on above: Performed By: #### L 501.5200, L300.3900, L501.2300, L501.9520, L100.0100, L501.4700, L500.4050 ####[facility] [address] [place], [address] AST [Catalytic activity/Vol] 19 U/L Normal <=31 [facility] Comment on above: Performed By: #### L 501.5200, L300.3900, L501.2300, L501.9520, L100.0100, L501.4700, L500.4050 ####[facility] [address] [place], [address] BUN/CRE 19.3 RATIO Normal 10-20 [facility] Comment on above: Performed By: #### L 501.5200, L300.3900, L501.2300, L501.9520, L100.0100, L501.4700, L500.4050 ####[facility] [address] [place], [address] Calcium [Mass/Vol] 8.8 mg/dL Normal 7.6-11.0 [facility] Comment on above: Performed By: #### L 501.5200, L300.3900, L501.2300, L501.9520, L100.0100, L501.4700, L500.4050 ####[facility] [address] [place], [address] Chloride [Moles/Vol] 101 mmol/L Normal 98-108 [facility] Comment on above: Performed By: #### L 501.5200, L300.3900, L501.2300, L501.9520, L100.0100, L501.4700, L500.4050 ####[facility] [address] [place], [address] CO2 [Moles/Vol] 25.7 mmol/L Normal 21.0-32.0 [facility] Comment on above: Performed By: #### L 501.5200, L300.3900, L501.2300, L501.9520, L100.0100, L501.4700, L500.4050 ####[facility] [address] [place], [address] Creatinine [Mass/Vol] 1.08 mg/dL Normal 0.70-1.20 [facility] Comment on above: Performed By: #### L 501.5200, L300.3900, L501.2300, L501.9520, L100.0100, L501.4700, L500.4050 ####[facility] [address] [place], [address] ECRCL 44.73 ml/min Low 50-250 [facility] Comment on above: Performed By: #### L 501.5200, L300.3900, L501.2300, L501.9520, L100.0100, L501.4700, L500.4050 ####[facility] [address] [place], [address] GAP 12 Normal 5-15 [facility] Comment on above: Performed By: #### L 501.5200, L300.3900, L501.2300, L501.9520, L100.0100, L501.4700, L500.4050 ####[facility] [address] [place], [address] GFR/1.73 sq M.predicted among non-blacks MDRD (S/P/Bld) [Vol rate/Area] 55 mL/min/{1.73_m2} Low >60 [facility] Comment on above: Result Comment: mL/m in/1.73m2 CKD-EPI Creatinine Equation (2020) Performed By: #### L 501.5200, L300.3900, L501.2300, L501.9520, L100.0100, L501.4700, L500.4050 ####[facility] [address] [place], [address] Globulin (S) [Mass/Vol] 2.9 g/dL Normal 2.2-4.2 [facility] Comment on above: Performed By: #### L 501.5200, L300.3900, L501.2300, L501.9520, L100.0100, L501.4700, L500.4050 ####[facility] [address] [place], [address] Glucose [Mass/Vol] 132 mg/dL High 70-99 [facility] Comment on above: Performed By: #### L 501.5200, L300.3900, L501.2300, L501.9520, L100.0100, L501.4700, L500.4050 ####[facility] [address] [place], [address] Potassium [Moles/Vol] 4.8 mmol/L Normal 3.3-5.1 [facility] Comment on above: Performed By: #### L 501.5200, L300.3900, L501.2300, L501.9520, L100.0100, L501.4700, L500.4050 ####[facility] [address] [place], [address] Sodium [Moles/Vol] 139 mmol/L Normal 133-145 [facility] Comment on above: Performed By: #### L 501.5200, L300.3900, L501.2300, L501.9520, L100.0100, L501.4700, L500.4050 ####[facility] [address] [place], [address] T BILI < 0.15 Normal 0.00-1.30 [facility] Comment on above: Performed By: #### L 501.5200, L300.3900, L501.2300, L501.9520, L100.0100, L501.4700, L500.4050 ####[facility] [address] [place], [address] T PROT 6.6 g/dL Normal 5.9-8.4 [facility] Comment on above: Performed By: #### L 501.5200, L300.3900, L501.2300, L501.9520, L100.0100, L501.4700, L500.4050 ####[facility] [address] [place], [address] Urea nitrogen [Mass/Vol] 21 mg/dL High 4-19 [facility] Comment on above: Performed By: #### L 501.5200, L300.3900, L501.2300, L501.9520, L100.0100, L501.4700, L500.4050 ####[facility] [address] [place], [address] International normalized rat io (INR) calculationOrdered By: Gaurang Donahue on 11-11-2024 INR Coag (Bld) [Relative time] 0.9 {INR} [facility] Laboratory - Chemistry and C hemistry - challengeOrdered By: Gaurang Donahue on 11-11-2024 AST [Catalytic activity/Vol] 19 U/L <32 [facility] M8200.1000on 11-11-2024 M8200.1000 Normal Reference Ran ge = Negative MRSA DNA Nose Ql LEYDA+probe GeneXpert Instrument, PCR method MRSA PCR MRSA NEGATIVE Normal [facility] Comment on above: Performed By: #### M 8200.1000 ####[facility] [address] [place], [address] Magnesiumon 11-11-2024 Magnesium [Mass/Vol] 2.2 mg/dL Normal 1.5-2.2 [facility] Comment on above: Performed By: #### L 501.5200, L300.3900, L501.2300, L501.9520, L100.0100, L501.4700, L500.4050 ####[facility] [address] [place], [address] Magnesium (Unsp spec) [Mass/ Vol]Ordered By: Gaurang Donahue on 11-11-2024 Magnesium [Mass/Vol] 2.2 mg/dL 1.5-2.2 [facility] Magnesium measurement (mass/ volume)Ordered By: Gaurang Donahue on 11-11-2024 Magnesium (Unsp spec) [Mass/Vol] 2.2 mg/dL 1.5-2.2 [facility] Phosphoruson 11-11-2024 Phosphate [Mass/Vol] 4.9 mg/dL High 2.7-4.5 [facility] Comment on above: Performed By: #### L 501.5200, L300.3900, L501.2300, L501.9520, L100.0100, L501.4700, L500.4050 ####[facility] [address] [place], [address] Prothrombin Time w/INRon INR Coag (PPP) [Relative time] 0.9 {INR} Normal [facility] Comment on above: Performed By: #### L 501.5200, L300.3900, L501.2300, L501.9520, L100.0100, L501.4700, L500.4050 ####[facility] [address] [place], [address] PT Coag (PPP) [Time] 12.7 s Normal 11.7-14.9 [facility] Comment on above: Performed By: #### L 501.5200, L300.3900, L501.2300, L501.9520, L100.0100, L501.4700, L500.4050 ####[facility] [address] [place], [address] Prothrombin timeOrdered By: Gaurang Donahue on 11-11-2024 PT Coag (PPP) [Time] 12.7 s 11.7-14.9 [facility] RESPIRATORY PANEL MOLECULARo n 11-11-2024 RP PANEL Normal [facility] Comment on above: Performed By: #### M 100.638 ####[facility] [address] [place], [address] Serum globulin measurementOr dered By: Gaurang Donahue on 11-11-2024 Globulin (S) [Mass/Vol] 2.9 g/dL 2.2-4.2 [facility] Serum or plasma alanine tang otransferase (ALT) measurementOrdered By: Gaurang Donahue on 11-11-2024 ALT [Catalytic activity/Vol] 8 U/L <35 [facility] Serum or plasma albumin yovani urement (mass/volume)Ordered By: Gaurang Donahue on 11-11-2024 Albumin [Mass/Vol] 3.8 g/dL 3.4-4.8 [facility] Serum or plasma albumin/glob ulin mass ratioOrdered By: Gaurang Donahue on 11-11-2024 Albumin/Globulin [Mass ratio] 1.3 {ratio} 0.9-2.4 [facility] Serum or plasma alkaline tello sphatase measurementOrdered By: Gaurang Donahue on 11-11-2024 ALP [Catalytic activity/Vol] 101 U/L 35-104 [facility] Serum phosphorus measurement Ordered By: Gaurang Donahue on 11-11-2024 Phosphorus Level 4.9 mg/dL High 2.7-4.5 [facility] TSH DL <= 0.005 mIU/L QnOrde red By: Gaurang Donahue on 11-11-2024 Thyroid Stimulating Hormone (TSH) 0.272 uIU/mL Low 0.300-4.200 [facility] TSH Qn 0.272 uIU/mL Low 0.300-4.200 [facility] Thyroid Stim Hormone (TSH)on 11-11-2024 TSH 0.272 uIU/mL Low 0.300-4.200 [facility] Comment on above: Performed By: #### L 501.5200, L300.3900, L501.2300, L501.9520, L100.0100, L501.4700, L500.4050 ####[facility] [address] [place], [place], [address] Total proteinOrdered By: Rosa Donahue on 11-11-2024 Protein [Mass/Vol] 6.6 g/dL 5.9-8.4 [facility] 12 Lead EKGon 11-10-2024 12 Lead EKG Normal [facility] Absolute neutrophil countOrd ered By: Bennie Dorsey on 11-10-2024 Neutrophils (Bld) [#/Vol] 2.6 10*3/uL 2.0-7.7 [facility] Anion gap in Serum or Plasma Ordered By: Bennie Dorsey on 11-10-2024 Anion gap [Moles/Vol] 13 mmol/L - [facility] BUN/creatinine ratioOrdered By: Bennie Dorsey on 11-10-2024 Urea nitrogen/Creatinine [Mass ratio] 19.8 mg/mg - [facility] Basic Metabolic Profile (BMP )on 11-10-2024 BUN/CRE 19.8 RATIO Normal - [facility] Comment on above: Performed By: #### L 501.4021, L500.2500, L100.0100 ####[facility] [address] [place], [address] Calcium [Mass/Vol] 9.4 mg/dL Normal 7.6-11.0 [facility] Comment on above: Performed By: #### L 501.4021, L500.2500, L100.0100 ####[facility] [address] [place], [address] Chloride [Moles/Vol] 103 mmol/L Normal 98-108 [facility] Comment on above: Performed By: #### L 501.4021, L500.2500, L100.0100 ####[facility] [address] [place], [address] CO2 [Moles/Vol] 24.3 mmol/L Normal 21.0-32.0 [facility] Comment on above: Performed By: #### L 501.4021, L500.2500, L100.0100 ####[facility] [address] [place], [address] Creatinine [Mass/Vol] 1.21 mg/dL High 0.70-1.20 [facility] Comment on above: Performed By: #### L 501.4021, L500.2500, L100.0100 ####[facility] [address] [place], [address] ECRCL 43.64 ml/min Low 50-250 [facility] Comment on above: Performed By: #### L 501.4021, L500.2500, L100.0100 ####[facility] [address] [place], [address] GAP 13 Normal 5-15 [facility] Comment on above: Performed By: #### L 501.4021, L500.2500, L100.0100 ####[facility] [address] [place], [address] GFR/1.73 sq M.predicted among non-blacks MDRD (S/P/Bld) [Vol rate/Area] 48 mL/min/{1.73_m2} Low >60 [facility] Comment on above: Result Comment: mL/m in/1.73m2 CKD-EPI Creatinine Equation (2020) Performed By: #### L 501.4021, L500.2500, L100.0100 ####[facility] [address] [place], [address] Glucose [Mass/Vol] 81 mg/dL Normal 70-99 [facility] Comment on above: Performed By: #### L 501.4021, L500.2500, L100.0100 ####[facility] [address] [place], [address] Potassium [Moles/Vol] 4.7 mmol/L Normal 3.3-5.1 [facility] Comment on above: Performed By: #### L 501.4021, L500.2500, L100.0100 ####[facility] [address] [place], [address] Sodium [Moles/Vol] 141 mmol/L Normal 133-145 [facility] Comment on above: Performed By: #### L 501.4021, L500.2500, L100.0100 ####[facility] [address] [place], [address] Urea nitrogen [Mass/Vol] 24 mg/dL High 4-19 [facility] Comment on above: Performed By: #### L 501.4021, L500.2500, L100.0100 ####[facility] [address] [place], [address] Basophil percentageOrdered B y: Bennie Dorsey on 11-10-2024 Basophils/100 WBC (Bld) 0.4 % 0-1 [facility] CBC W/Diff, Automatedon 10-29-2024 Absolute Lymph 1.32 X10 3/uL Normal 0.83-4.51 [facility] Comment on above: Performed By: #### L 501.4021, L500.2500, L100.0100 ####[facility] [address] [place], [address] Absolute Neut 2.6 X10 3/uL Normal 2.0-7.7 [facility] Comment on above: Performed By: #### L 501.4021, L500.2500, L100.0100 ####[facility] [address] [place], [address] Basophils/100 WBC (Bld) 0.4 % Normal 0-1 [facility] Comment on above: Performed By: #### L 501.4021, L500.2500, L100.0100 ####[facility] [address] [place], [address] Eosinophils/100 WBC (Bld) 3.3 % Normal 0-5 [facility] Comment on above: Performed By: #### L 501.4021, L500.2500, L100.0100 ####[facility] [address] [place], [address] Erythrocyte distribution width (RBC) [Ratio] 15.0 % High 11.6-14.6 [facility] Comment on above: Performed By: #### L 501.4021, L500.2500, L100.0100 ####[facility] [address] [place], [address] Hematocrit (Bld) [Volume fraction] 43.0 % Normal 37-47 [facility] Comment on above: Performed By: #### L 501.4021, L500.2500, L100.0100 ####[facility] [address] [place], [address] Hemoglobin (Bld) [Mass/Vol] 13.4 g/dL Normal 12.0-15.0 [facility] Comment on above: Performed By: #### L 501.4021, L500.2500, L100.0100 ####[facility] [address] [place], [address] IG% 0.200 Normal 0.0-0.9 [facility] Comment on above: Result Comment: IG% - Immature Granulocytes (promyelocytes, myelocytes andmetamyelocytes) > 1% indicates that a LEFT SHIFT is Present. Performed By: #### L 501.4021, L500.2500, L100.0100 ####[facility] [address] [place], [address] Lymphocytes/100 WBC (Bld) 29.1 % Normal 19-41 [facility] Comment on above: Performed By: #### L 501.4021, L500.2500, L100.0100 ####[facility] [address] [place], [address] MCH (RBC) [Entitic mass] 27.6 pg Normal 27.0-32.0 [facility] Comment on above: Performed By: #### L 501.4021, L500.2500, L100.0100 ####[facility] [address] [place], [address] MCHC (RBC) [Mass/Vol] 31.2 g/dL Low 32-36 [facility] Comment on above: Performed By: #### L 501.4021, L500.2500, L100.0100 ####[facility] [address] [place], [address] MCV (RBC) [Entitic vol] 88.7 fL Normal 81-99 [facility] Comment on above: Performed By: #### L 501.4021, L500.2500, L100.0100 ####[facility] [address] [place], [address] Monocytes/100 WBC (Bld) 9.0 % Normal 0-10 [facility] Comment on above: Performed By: #### L 501.4021, L500.2500, L100.0100 ####[facility] [address] [place] [place], [address] Neutrophils/100 WBC (Bld) 58.0 % Normal 47-70 [facility] Comment on above: Performed By: #### L 501.4021, L500.2500, L100.0100 ####[facility] [address] [place], [address] Nucleated RBC (Bld) [#/Vol] 0 10*3/uL Normal 0-5 [facility] Comment on above: Performed By: #### L 501.4021, L500.2500, L100.0100 ####[facility] [address] [place], [address] Platelet mean volume (Bld) [Entitic vol] 10.1 fL Normal 6.2-12.0 [facility] Comment on above: Performed By: #### L 501.4021, L500.2500, L100.0100 ####[facility] [address] [place], [address] Platelets (Bld) [#/Vol] 246 10*3/uL Normal 150-450 [facility] Comment on above: Performed By: #### L 501.4021, L500.2500, L100.0100 ####[facility] [address] [place], [address] RBC (Bld) [#/Vol] 4.85 10*6/uL Normal 4.2-5.4 [facility] Comment on above: Performed By: #### L 501.4021, L500.2500, L100.0100 ####[facility] [address] [place], [address] RDW SD 48.4 fl High 35.1-43.9 [facility] Comment on above: Performed By: #### L 501.4021, L500.2500, L100.0100 ####[facility] [address] [place], [address] WBC (Bld) [#/Vol] 4.5 10*3/uL Normal 4.4-11.0 [facility] Comment on above: Performed By: #### L 501.4021, L500.2500, L100.0100 ####[facility] [address] [place], [address] Carbon dioxide, total [Moles /volume] in Central venous bloodOrdered By: Bennie Dorsey on 11-10-2024 CO2 [Moles/Vol] 24.3 mmol/L 21.0-32.0 [facility] Chest 1 View (Portable)on Chest 1 View (Portable) Normal [facility] Chloride assayOrdered By: Th aly Dorsey on 11-10-2024 Chloride [Moles/Vol] 103 mmol/L 98-108 [facility] Emergency Department Summary on 11-10-2024 Emergency Department Summary Normal [facility] Eosinophil percentageOrdered By: Bennie Dorsey on 11-10-2024 Eosinophils/100 WBC (Bld) 3.3 % 0-5 [facility] Erythrocyte distribution wid th ratioOrdered By: Bennie Dorsey on 11-10-2024 Erythrocyte distribution width (RBC) [Ratio] 15.0 % High 11.6-14.6 [facility] Erythrocyte distribution wid th standard deviationOrdered By: Bennie Dorsey on 11-10-2024 Erythrocyte distribution width (RBC) [Entitic vol] 48.4 fL High 35.1-43.9 [facility] Estimation of creatinine carmela aranceOrdered By: Bennie Dorsey on 11-10-2024 Estimated Creatinine Clearance Calc 43.64 ml/min Low 50-250 [facility] GFR/1.73 sq M.predicted nick g non-blacks MDRD (S/P/Bld) [Vol rate/Area]Ordered By: Bennie Dorsey on 11-10-2024 Estimated GFR (MDRD) Non-Af Amer 48 Low >60 [facility] Comment on above: mL/min/1.73m2 CKD-EP I Creatinine Equation (2020) H AND P Exam - [facility] 11-10-2024 H&P Exam - Hospitalist Normal [facility] Hematocrit Auto (Bld) [Volum e fraction]Ordered By: Bennie Dorsey on 11-10-2024 Hematocrit (Bld) [Volume fraction] 43.0 % 37-47 [facility] Hemoglobin measurementOrdere d By: Bennie Dorsey on 11-10-2024 Hemoglobin (Bld) [Mass/Vol] 13.4 g/dL 12.0-15.0 [facility] Immature granulocytes/100 WB C Auto (Bld)Ordered By: Bennie Dorsey on 11-10-2024 Immature granulocytes/100 WBC (Bld) 0.200 % 0.0-0.9 [facility] Comment on above: IG% - Immature Granu locytes (promyelocytes, myelocytes and metamyelocytes) > 1% indicates that a LEFT SHIFT is Present. Influenza virus A and B and SARS-CoV-2 (COVID-19) and Respiratory syncytial virus RNAOrdered By: Bennie Dorsey on 11-10-2024 SARS-CoV-2 (COVID-19) RNA LEYDA+probe Ql (Unsp spec) [facility] L. pneumophila Ag Ql (U)Orde red By: Gaurang Donahue on 11-10-2024 Legionella Ant[facility] L501.4021on 11-10-2024 Trop T High Sen 19 ng/L High <=14 [facility] Comment on above: Performed By: #### L 501.4021, L500.2500, L100.0100 ####[facility] [address] [place], [address] L503.7505on 11-10-2024 Natriuretic peptide B (Bld) [Mass/Vol] 392 pg/mL Normal <=900 [facility] Comment on above: Result Comment: Hear t Failure Unlikely: < 300 pg/mLHeart Failure Likely< 50 Years: > 450 pg/mL50-75 Years: > 900 pg/mL>75 Years: > 1800 pg/mL Performed By: #### L 503.7505 ####[facility] [address] [place], [place], [id number] Laboratory - Chemistry and C hemistry - challengeOrdered By: Bennie Dorsey on 11-10-2024 Natriuretic peptide B (Bld) [Mass/Vol] 392 pg/mL <900 [facility] Comment on above: Heart Failure Unlike ly: < 300 pg/mLHeart Failure Likely< 50 Years: > 450 pg/mL50-75 Years: > 900 pg/mL>75 Years: > 1800 pg/mL Legionella Antigen Urineon 0 11-10-2024 LEGU Normal [facility] Comment on above: Performed By: #### M 300.4500 ####[facility] [address] [facility] [place], [place], [id number] Lymphocytes Auto (Unsp spec) [#/Vol]Ordered By: Bennie Dorsey on 11-10-2024 Lymphocytes (Bld) [#/Vol] 1.32 10*3/uL 0.83-4.51 [facility] Lymphocytes/100 WBC Auto (Un sp spec)Ordered By: Bennie Dorsey on 11-10-2024 Lymphocytes/100 WBC (Bld) 29.1 % 19-41 [facility] M100.678on 11-10-2024 M100.678 Pending SARS-CoV-2 (COVID 19) Negative INFLUENZA A Negative INFLUENZA B Negative RSV PCR Negative Normal [facility] Comment on above: Performed By: #### M 100677 ####[facility] [address] [place], [place], [id number] MCV (mean corpuscular volume ) determinationOrdered By: Bennie Dorsey on 11-10-2024 MCV (RBC) [Entitic vol] 88.7 fL 81-99 [facility] MRSA DNA LEYDA+probe Ql (Nose) Ordered By: Gaurang Donahue on 11-10-2024 MRSA (PCR) [facility] Mean corpuscular hemoglobin (MCH) determinationOrdered By: Bennie Dorsey on 11-10-2024 MCH (RBC) [Entitic mass] 27.6 pg 27.0-32.0 [facility] Mean corpuscular hemoglobin concentration (MCHC) determinationOrdered By: Bennie Dorsey on 11-10-2024 MCHC (RBC) [Mass/Vol] 31.2 g/dL Low 32-36 [facility] Mean platelet volume determi nationOrdered By: Bennie Dorsey on 11-10-2024 Platelet mean volume (Bld) [Entitic vol] 10.1 fL 6.2-12.0 [facility] Monocyte percentageOrdered B y: Bennie Dorsey on 11-10-2024 Monocytes/100 WBC (Bld) 9.0 % 0-10 [facility] Nasal methicillin resistant Staphylococcus aureus (MRSA) DNA detection by PCROrdered By: Gaurang Donahue on 11-10-2024 MRSA DNA LEYDA+probe Ql (Nose) [facility] Neutrophil percentageOrdered By: Bennie Dorsey on 11-10-2024 Neutrophils/100 WBC (Bld) 58.0 % 47-70 [facility] No Panel InformationOrdered By: Bennie Dorsey on 11-10-2024 Troponin T High Sensitivity 19 ng/L High <14 [facility] Nucleated red blood cell per centageOrdered By: Bennie Dorsey on 11-10-2024 Nucleated RBC/100 WBC (Bld) [Ratio] 0 % 0-5 [facility] Platelet countOrdered By: Juan Dorsey on 03-13-2025 Platelets (Bld) [#/Vol] 246 10*3/uL 150-450 [facility] Potassium (Unsp spec) [Mass/ Vol]Ordered By: Bennie Dorsey on 11-10-2024 Potassium [Moles/Vol] 4.7 mmol/L 3.3-5.1 [facility] RBC Auto (Bld) [#/Vol]Ordere d By: Bennie Dorsey on 11-10-2024 RBC (Bld) [#/Vol] 4.85 10*6/uL 4.2-5.4 [facility] Respiratory pathogens DNA an d RNA panel LEYDA+probe (Resp)Ordered By: Gaurang Donahue on 11-10-2024 Respiratory Panel (PCR) [facility] Respiratory pathogens detect ion panel by molecular detection methodOrdered By: Gaurang Donahue on 11-10-2024 Respiratory pathogens DNA and RNA panel LEYDA+probe (Resp) [facility] Serum creatinine measurement (mass/volume)Ordered By: Bennie Dorsey on 11-10-2024 Creatinine [Mass/Vol] 1.21 mg/dL High 0.70-1.20 [facility] Serum glucose measurement (m ass/volume)Ordered By: Bennie Dorsey on 11-10-2024 Glucose [Mass/Vol] 81 mg/dL 70-99 [facility] Serum or plasma calcium yovani urement (mass/volume)Ordered By: Bennie Dorsey on 11-10-2024 Calcium [Mass/Vol] 9.4 mg/dL 7.6-11.0 [facility] Serum or plasma urea nitroge n measurement (mass/volume)Ordered By: Bennie Dorsey on 11-10-2024 Urea nitrogen [Mass/Vol] 24 mg/dL High 4-19 [facility] Sodium levelOrdered By: Lisa Dorsey on 11-10-2024 Sodium [Moles/Vol] 141 mmol/L 133-145 [facility] Urine Legionella pneumophila antigen detectionOrdered By: Gaurang Donahue on 11-10-2024 L. pneumophila Ag Ql (U) [facility] White blood cell (WBC) count Ordered By: Bennie Dorsey on 11-10-2024 WBC (Bld) [#/Vol] 4.5 10*3/uL 4.4-11.0 [facility] L501.4020on 10-14-2024 TROPONIN-I HS 9 pg/mL Normal 3.0-54.0 [facility] Comment on above: Result Comment: Sergey jack Note: New Test Units and Gender Specific Reference Ranges. For more information see Policy Stat Procedure [place] High Sensitivity Troponin (TNIH) and attachments. Performed By: #### L 501.4020 ####[facility] [address] [place], [address] M100.678on 10-14-2024 M100.678 SARS-CoV-2 (COVID 19 ) Negative INFLUENZA A Negative INFLUENZA B Negative RSV PCR Negative Normal [facility] Comment on above: Performed By: #### M 100.678 ####[facility] [address] [place], [address] Troponin IOrdered By: Pako serrano on 10-14-2024 Troponin I 9 pg/mL 3.0-54.0 [facility] Comment on above: Please Note: New Alexandra t Units and Gender Specific Reference Ranges. For more information see Policy Stat Procedure [place] High Sensitivity Troponin (TNIH) and attachments. Troponin I High Sensitivity 9 pg/mL 3.0-54.0 [facility] Comment on above: Please Note: New Alexandra t Units and Gender Specific Reference Ranges. For more information see Policy Stat Procedure [place] High Sensitivity Troponin (TNIH) and attachments. 12 Lead EKGon 10-13-2024 12 Lead EKG Normal [facility] Absolute lymphocyte countOrd ered By: Pako Fink on 10-13-2024 Lymphocytes Auto (Unsp spec) [#/Vol] 2.75 10*3/uL 0.83-4.51 [facility] Absolute neutrophil countOrd ered By: Pako Fink on 10-13-2024 Neutrophils (Bld) [#/Vol] 3.4 10*3/uL 2.0-7.7 [facility] Automated lymphocyte count a s percentage of total leukocytesOrdered By: Pako Fink on 10-13-2024 Lymphocytes/100 WBC Auto (Unsp spec) 39.2 % 19-41 [facility] BNP (brain natriuretic pepti de measurement)Ordered By: Pako Fink on 10-13-2024 Natriuretic peptide B (Bld) [Mass/Vol] 32.1 pg/mL 0-100 [facility] BNP,B-Type NATRIURETIC PEPTI Aida 10-13-2024 Natriuretic peptide B (Bld) [Mass/Vol] 32.1 pg/mL Normal 0-100 [facility] Comment on above: Performed By: #### L 501.5425, L100.0100, L500.2500, L503.6620 ####[facility] [address] [place], [address] Basic Metabolic Profile (BMP )on 10-13-2024 BUN/CRE 27.4 RATIO High 10-20 [facility] Comment on above: Performed By: #### L 501.5425, L100.0100, L500.2500, L503.6620 ####[facility] [address] [place], [address] CA,Total 9.3 mg/dL Normal 8.5-10.1 [facility] Comment on above: Performed By: #### L 501.5425, L100.0100, L500.2500, L503.6620 ####[facility] [address] [place], [address] Chloride [Moles/Vol] 107 mmol/L Normal 98-107 [facility] Comment on above: Performed By: #### L 501.5425, L100.0100, L500.2500, L503.6620 ####[facility] [address] [place], [address] CO2 [Moles/Vol] 30.0 mmol/L Normal 21.0-32.0 [facility] Comment on above: Performed By: #### L 501.5425, L100.0100, L500.2500, L503.6620 ####[facility] [address] [place], [address] Creatinine [Mass/Vol] 1.64 mg/dL High 0.55-1.02 [facility] Comment on above: Result Comment: The validity of the calculated GFR GFRAA in patients over70 years has not been determined. Clinical correlation isessential. Performed By: #### L 501.5425, L100.0100, L500.2500, L503.6620 ####[facility] [address] [place], [address] ECRCL 33.15 ml/min Normal [facility] Comment on above: Performed By: #### L 501.5425, L100.0100, L500.2500, L503.6620 ####[facility] [address] [place], [address] EST GFR - AA 40 mL/min Low >60 [facility] Comment on above: Result Comment: Afri can [place] GFR Calc Performed By: #### L 501.5425, L100.0100, L500.2500, L503.6620 ####[facility] [address] [place], [address] GAP 4 Low 5-15 [facility] Comment on above: Performed By: #### L 501.5425, L100.0100, L500.2500, L503.6620 ####[facility] [address] [place], [address] GFR/1.73 sq M.predicted among non-blacks MDRD (S/P/Bld) [Vol rate/Area] 33 mL/min/{1.73_m2} Low >60 [facility] Comment on above: Result Comment: Non- GFR Calc Performed By: #### L 501.5425, L100.0100, L500.2500, L503.6620 ####[facility] [address] [place], [address] Glucose [Mass/Vol] 83 mg/dL Normal 74-106 [facility] Comment on above: Performed By: #### L 501.5425, L100.0100, L500.2500, L503.6620 ####[facility] [address] [place], [address] Potassium [Moles/Vol] 5.2 mmol/L High 3.5-5.1 [facility] Comment on above: Performed By: #### L 501.5425, L100.0100, L500.2500, L503.6620 ####[facility] [address] [place], [address] Sodium [Moles/Vol] 141 mmol/L Normal 136-145 [facility] Comment on above: Performed By: #### L 501.5425, L100.0100, L500.2500, L503.6620 ####[facility] [address] [place], [address] Urea nitrogen [Mass/Vol] 45 mg/dL High 7-18 [facility] Comment on above: Performed By: #### L 501.5425, L100.0100, L500.2500, L503.6620 ####[facility] [address] [place], [address] Basophil percentageOrdered B y: Pako Fink on 10-13-2024 Basophils/100 WBC (Bld) 0.6 % 0-1 [facility] Blood urea nitrogen (BUN)/cr eatinine ratioOrdered By: Pako Fink on 10-13-2024 Urea nitrogen/Creatinine [Mass ratio] 27.4 mg/mg High 10-20 [facility] CBC W/Diff, Automatedon 10-01 Absolute Lymph 2.75 X10 3/uL Normal 0.83-4.51 [facility] Comment on above: Performed By: #### L 501.5425, L100.0100, L500.2500, L503.6620 ####[facility] [address] [place], [address] Absolute Neut 3.4 X10 3/uL Normal 2.0-7.7 [facility] Comment on above: Performed By: #### L 501.5425, L100.0100, L500.2500, L503.6620 ####[facility] [address] [place], [address] Basophils/100 WBC (Bld) 0.6 % Normal 0-1 [facility] Comment on above: Performed By: #### L 501.5425, L100.0100, L500.2500, L503.6620 ####[facility] [address] [place], [address] Eosinophils/100 WBC (Bld) 4.3 % Normal 0-5 [facility] Comment on above: Performed By: #### L 501.5425, L100.0100, L500.2500, L503.6620 ####[facility] [address] [place], [address] Erythrocyte distribution width (RBC) [Ratio] 15.1 % High 11.6-14.6 [facility] Comment on above: Performed By: #### L 501.5425, L100.0100, L500.2500, L503.6620 ####[facility] [address] [place], [address] Hematocrit (Bld) [Volume fraction] 40.1 % Normal 37-47 [facility] Comment on above: Performed By: #### L 501.5425, L100.0100, L500.2500, L503.6620 ####[facility] [address] [place], [address] Hemoglobin (Bld) [Mass/Vol] 12.8 g/dL Normal 12.0-15.0 [facility] Comment on above: Performed By: #### L 501.5425, L100.0100, L500.2500, L503.6620 ####[facility] [address] [place], [address] IG% 0.600 Normal 0.0-0.9 [facility] Comment on above: Result Comment: IG% - Immature Granulocytes (promyelocytes, myelocytes andmetamyelocytes) > 1% indicates that a LEFT SHIFT is Present. Performed By: #### L 501.5425, L100.0100, L500.2500, L503.6620 ####[facility] [address] [place], [address] Lymphocytes/100 WBC (Bld) 39.2 % Normal 19-41 [facility] Comment on above: Performed By: #### L 501.5425, L100.0100, L500.2500, L503.6620 ####[facility] [address] [place], [address] MCH (RBC) [Entitic mass] 28.1 pg Normal 27.0-32.0 [facility] Comment on above: Performed By: #### L 501.5425, L100.0100, L500.2500, L503.6620 ####[facility] [address] [place], [address] MCHC (RBC) [Mass/Vol] 31.9 g/dL Low 32-36 [facility] Comment on above: Performed By: #### L 501.5425, L100.0100, L500.2500, L503.6620 ####[facility] [address] [place], [address] MCV (RBC) [Entitic vol] 88.1 fL Normal 81-99 [facility] Comment on above: Performed By: #### L 501.5425, L100.0100, L500.2500, L503.6620 ####[facility] [address] [place], [address] Monocytes/100 WBC (Bld) 7.1 % Normal 0-10 [facility] Comment on above: Performed By: #### L 501.5425, L100.0100, L500.2500, L503.6620 ####[facility] [address] [place], [address] Neutrophils/100 WBC (Bld) 48.2 % Normal 47-70 [facility] Comment on above: Performed By: #### L 501.5425, L100.0100, L500.2500, L503.6620 ####[facility] [address] [place], [address] Nucleated RBC (Bld) [#/Vol] 0 10*3/uL Normal 0-5 [facility] Comment on above: Performed By: #### L 501.5425, L100.0100, L500.2500, L503.6620 ####[facility] [address] [place], [address] Platelet mean volume (Bld) [Entitic vol] 9.8 fL Normal 6.2-12.0 [facility] Comment on above: Performed By: #### L 501.5425, L100.0100, L500.2500, L503.6620 ####[facility] [address] [place], [address] Platelets (Bld) [#/Vol] 275 10*3/uL Normal 150-450 [facility] Comment on above: Performed By: #### L 501.5425, L100.0100, L500.2500, L503.6620 ####[facility] [address] [place], [address] RBC (Bld) [#/Vol] 4.55 10*6/uL Normal 4.2-5.4 [facility] Comment on above: Performed By: #### L 501.5425, L100.0100, L500.2500, L503.6620 ####[facility] [address] [place], [address] RDW SD 48.6 fl High 35.1-43.9 [facility] Comment on above: Performed By: #### L 501.5425, L100.0100, L500.2500, L503.6620 ####[facility] [address] [place], [address] WBC (Bld) [#/Vol] 7.0 10*3/uL Normal 4.4-11.0 [facility] Comment on above: Performed By: #### L 501.5425, L100.0100, L500.2500, L503.6620 ####[facility] [address] [place], [address] Carbon dioxide measurementOr dered By: Pako Fink on 10-13-2024 CO2 [Moles/Vol] 30.0 mmol/L 21.0-32.0 [facility] Chest 1 View (Portable)on Chest 1 View (Portable) Normal [facility] Chloride measurementOrdered By: Pako Fink on 10-13-2024 Chloride [Moles/Vol] 107 mmol/L 98-107 [facility] Emergency Department Summary on 10-13-2024 Emergency Department Summary Normal [facility] Eosinophil percentageOrdered By: Pako Fink on 10-13-2024 Eosinophils/100 WBC (Bld) 4.3 % 0-5 [facility] Erythrocyte distribution wid th ratioOrdered By: Pako Fink on 10-13-2024 Erythrocyte distribution width (RBC) [Ratio] 15.1 % High 11.6-14.6 [facility] Erythrocyte distribution wid th standard deviationOrdered By: Pako Fink on 10-13-2024 Erythrocyte distribution width (RBC) [Entitic vol] 48.6 fL High 35.1-43.9 [facility] Erythrocyte distribution width (RBC) [Ratio] 48.6 fl High 35.1-43.9 [facility] Estimated glomerular filtrat ion rate (GFR) AmericanOrdered By: Pako Fink on 10-13-2024 Estimated GFR (MDRD) Amer 40 mL/min Low >60 [facility] Comment on above: GFR Calc Estimation of creatinine carmela aranceOrdered By: Pako Fink on 10-13-2024 Estimated Creatinine Clearance Calc 33.15 ml/min [facility] Glomerular filtration rate ( GFR) estimationOrdered By: Pako Fink on 10-13-2024 Estimated GFR (MDRD) Non-Af Amer 33 mL/min Low >60 [facility] Comment on above: Non- GFR Calc GFR/1.73 sq M.predicted among non-blacks MDRD (S/P/Bld) [Vol rate/Area] 33 mL/min/{1.73_m2} Low >60 [facility] Comment on above: Non- GFR Calc Glucose measurementOrdered B y: Pako Fink on 10-13-2024 Glucose [Mass/Vol] 83 mg/dL 74-106 [facility] Hematocrit Auto (Bld) [Volum e fraction]Ordered By: Pako Fink on 10-13-2024 Hematocrit (Bld) [Volume fraction] 40.1 % 37-47 [facility] Hemoglobin measurementOrdere d By: Pako Fink on 10-13-2024 Hemoglobin (Bld) [Mass/Vol] 12.8 g/dL 12.0-15.0 [facility] Immature granulocytes/100 WB C Auto (Bld)Ordered By: Pako Fink on 10-13-2024 Immature granulocytes/100 WBC (Bld) 0.600 % 0.0-0.9 [facility] Comment on above: IG% - Immature Granu locytes (promyelocytes, myelocytes and metamyelocytes) > 1% indicates that a LEFT SHIFT is Present. Influenza virus A and B and SARS-CoV-2 (COVID-19) and Respiratory syncytial virus RNAOrdered By: Pako Fink on 10-13-2024 SARS-CoV-2 (COVID-19) RNA LEYDA+probe Ql (Unsp spec) [facility] L501.5425on 10-13-2024 TROPONIN-I HS 8 pg/mL Normal 3.0-54.0 [facility] Comment on above: Order Comment: 1Y Result Comment: Sergey jack Note: New Test Units and Gender Specific Reference Ranges. For more information see Policy Stat Procedure [place] High Sensitivity Troponin (TNIH) and attachments. Performed By: #### L 501.5425, L100.0100, L500.2500, L503.6620 ####[facility] [address] [place], [address] Lymphocytes Auto (Unsp spec) [#/Vol]Ordered By: Pako Fink on 10-13-2024 Lymphocytes (Bld) [#/Vol] 2.75 10*3/uL 0.83-4.51 [facility] Lymphocytes/100 WBC Auto (Un sp spec)Ordered By: Pako Fink on 10-13-2024 Lymphocytes/100 WBC (Bld) 39.2 % 19-41 [facility] MCV (mean corpuscular volume ) determinationOrdered By: Pako Fink on 10-13-2024 MCV (RBC) [Entitic vol] 88.1 fL 81-99 [facility] [facility] Mean corpuscular hemoglobin (MCH) determinationOrdered By: Pako Fink on 10-13-2024 MCH (RBC) [Entitic mass] 28.1 pg 27.0-32.0 [facility] Mean corpuscular hemoglobin concentration (MCHC) determinationOrdered By: Pako Fink on 10-13-2024 MCHC (RBC) [Mass/Vol] 31.9 g/dL Low 32-36 [facility] Mean platelet volume determi nationOrdered By: Pako Fink on 10-13-2024 Platelet mean volume (Bld) [Entitic vol] 9.8 fL 6.2-12.0 [facility] Monocyte percentageOrdered B y: Pako Fink on 10-13-2024 Monocytes/100 WBC (Bld) 7.1 % 0-10 [facility] Neutrophil percentageOrdered By: Pako Fink on 10-13-2024 Neutrophils/100 WBC (Bld) 48.2 % 47-70 [facility] Nucleated red blood cell per centageOrdered By: Pako Fink on 10-13-2024 Nucleated RBC/100 WBC (Bld) [Ratio] 0 % 0-5 [facility] Platelet countOrdered By: Juvencio Fink on 10-13-2024 Platelets (Bld) [#/Vol] 275 10*3/uL 150-450 [facility] Potassium measurementOrdered By: Pako Fink on 10-13-2024 Potassium [Moles/Vol] 5.2 mmol/L High 3.5-5.1 [facility] RBC Auto (Bld) [#/Vol]Ordere d By: Pako Fink on 10-13-2024 RBC (Bld) [#/Vol] 4.55 10*6/uL 4.2-5.4 [facility] Serum anion gap measurementO rdered By: Pako Fink on 10-13-2024 Anion gap [Moles/Vol] 4 mmol/L Low 5-15 [facility] Serum or plasma calcium yovani urement (mass/volume)Ordered By: Pako Fink on 10-13-2024 Calcium [Mass/Vol] 9.3 mg/dL 8.5-10.1 [facility] Serum or plasma creatinine m easurement (mass/volume)Ordered By: Pako Fink on 10-13-2024 Creatinine [Mass/Vol] 1.64 mg/dL High 0.55-1.02 [facility] Comment on above: The validity of the calculated GFR & GFRAA in patients over 70 years has not been determined. Clinical correlation is essential. Serum or plasma urea nitroge n measurement (mass/volume)Ordered By: Pako Fink on 10-13-2024 Urea nitrogen [Mass/Vol] 45 mg/dL High 7-18 [facility] Sodium levelOrdered By: Pako Fink on 10-13-2024 Sodium [Moles/Vol] 141 mmol/L 136-145 [facility] White blood cell (WBC) count Ordered By: Pako Fink on 10-13-2024 WBC (Bld) [#/Vol] 7.0 10*3/uL 4.4-11.0 [facility] Bedside Glucoseon 09-16-2024 FINGERSTICK GLU 141 mg/dL High 74-106 [facility] Comment on above: Result Comment: SHELDON MENDOZA OF PATIENT CARE PER NURSING PROTOCOL Performed By: #### L 501.080 ####[facility] [address] [place], [address] FINGERSTICK GLU 159 mg/dL High 74-106 [facility] Comment on above: Result Comment: SHELDON GEMENT OF PATIENT CARE PER NURSING PROTOCOL Performed By: #### L 501.080 ####[facility] [address] [place], [place], [address] Discharge Instructionon 08-31 Discharge Instruction Normal [facility] Glucose measurement at [facility] deOrdered By: Karthik Rodrigues on 09-16-2024 Bedside Glucose (Misc Panel) 141 mg/dL High 74-106 [facility] Comment on above: MANAGEMENT OF PATIEN T CARE PER NURSING PROTOCOL Glucose [Mass/Vol] 141 mg/dL High 74-106 [facility] Comment on above: MANAGEMENT OF PATIEN T CARE PER NURSING PROTOCOL Absolute lymphocyte countOrd ered By: Gladis Luna on 09-15-2024 Lymphocytes Auto (Unsp spec) [#/Vol] 0.54 10*3/uL Low 0.83-4.51 [facility] Absolute neutrophil countOrd ered By: Gladis Luna on 09-15-2024 Neutrophils (Bld) [#/Vol] 5.8 10*3/uL 2.0-7.7 [facility] Albumin to globulin ratioOrd ered By: Gladis Luna on 09-15-2024 Albumin/Globulin [Mass ratio] 0.8 {ratio} Low 0.9-2.4 [facility] Automated lymphocyte count a s percentage of total leukocytesOrdered By: Gladis Luna on 09-15-2024 Lymphocytes/100 WBC Auto (Unsp spec) 8.4 % Low 19-41 [facility] Basophil percentageOrdered B y: Gladis Luna on 09-15-2024 Basophils/100 WBC (Bld) 0.0 % 0-1 [facility] Bedside Glucoseon 09-15-2024 FINGERSTICK GLU 142 mg/dL High 74-106 [facility] Comment on above: Result Comment: SHELDON GEMENT OF PATIENT CARE PER NURSING PROTOCOL Performed By: #### L 501.080 ####[facility] [address] [place], [address] FINGERSTICK GLU 137 mg/dL High 74-106 [facility] Comment on above: Result Comment: SHELDON GEMENT OF PATIENT CARE PER NURSING PROTOCOL Performed By: #### L 501.080 ####[facility] [address] [place], [address] FINGERSTICK GLU 140 mg/dL High 74-106 [facility] Comment on above: Result Comment: SHELDON GEMENT OF PATIENT CARE PER NURSING PROTOCOL Performed By: #### L 501.080 ####[facility] [address] [place], [address] FINGERSTICK GLU 191 mg/dL High 74-106 [facility] Comment on above: Result Comment: SHELDON GEMENT OF PATIENT CARE PER NURSING PROTOCOL Performed By: #### L 501.080 ####[facility] [address] [place], [address] Bilirubin, totalOrdered By: Gladis Luna on 09-15-2024 Bilirubin [Mass/Vol] 0.30 mg/dL 0.20-1.00 [facility] Comment on above: For patients on eltr ombopag therapy, use of Dimension [place] TBIL is not recommended. Blood urea nitrogen (BUN)/cr eatinine ratioOrdered By: Gladis Luna on 09-15-2024 Urea nitrogen/Creatinine [Mass ratio] 20.8 mg/mg High 10-20 [facility] CBC W/Diff, Automatedon 08-31 Absolute Lymph 0.54 X10 3/uL Low 0.83-4.51 [facility] Comment on above: Performed By: #### L 100.0100, L501.9520, L501.2300, L500.4050, L501.5200 ####[facility] [address] [place], [address] Absolute Neut 5.8 X10 3/uL Normal 2.0-7.7 [facility] Comment on above: Performed By: #### L 100.0100, L501.9520, L501.2300, L500.4050, L501.5200 ####[facility] [address] [place], [address] Basophils/100 WBC (Bld) 0.0 % Normal 0-1 [facility] Comment on above: Performed By: #### L 100.0100, L501.9520, L501.2300, L500.4050, L501.5200 ####[facility] [address] [place], [address] Eosinophils/100 WBC (Bld) 0.0 % Normal 0-5 [facility] Comment on above: Performed By: #### L 100.0100, L501.9520, L501.2300, L500.4050, L501.5200 ####[facility] [address] [place], [address] Erythrocyte distribution width (RBC) [Ratio] 15.7 % High 11.6-14.6 [facility] Comment on above: Performed By: #### L 100.0100, L501.9520, L501.2300, L500.4050, L501.5200 ####[facility] [address] [place], [address] Hematocrit (Bld) [Volume fraction] 42.4 % Normal 37-47 [facility] Comment on above: Performed By: #### L 100.0100, L501.9520, L501.2300, L500.4050, L501.5200 ####[facility] [address] [place], [address] Hemoglobin (Bld) [Mass/Vol] 13.2 g/dL Normal 12.0-15.0 [facility] Comment on above: Performed By: #### L 100.0100, L501.9520, L501.2300, L500.4050, L501.5200 ####[facility] [address] [place], [address] IG% 0.500 Normal 0.0-0.9 [facility] Comment on above: Result Comment: IG% - Immature Granulocytes (promyelocytes, myelocytes andmetamyelocytes) > 1% indicates that a LEFT SHIFT is Present. Performed By: #### L 100.0100, L501.9520, L501.2300, L500.4050, L501.5200 ####[facility] [address] [place], [address] Lymphocytes/100 WBC (Bld) 8.4 % Low 19-41 [facility] Comment on above: Performed By: #### L 100.0100, L501.9520, L501.2300, L500.4050, L501.5200 ####[facility] [address] [place], [address] MCH (RBC) [Entitic mass] 27.6 pg Normal 27.0-32.0 [facility] Comment on above: Performed By: #### L 100.0100, L501.9520, L501.2300, L500.4050, L501.5200 ####[facility] [address] [place], [address] MCHC (RBC) [Mass/Vol] 31.1 g/dL Low 32-36 [facility] Comment on above: Performed By: #### L 100.0100, L501.9520, L501.2300, L500.4050, L501.5200 ####[facility] [address] [place], [address] MCV (RBC) [Entitic vol] 88.7 fL Normal 81-99 [facility] Comment on above: Performed By: #### L 100.0100, L501.9520, L501.2300, L500.4050, L501.5200 ####[facility] [address] [place], [address] Monocytes/100 WBC (Bld) 1.3 % Normal 0-10 [facility] Comment on above: Performed By: #### L 100.0100, L501.9520, L501.2300, L500.4050, L501.5200 ####[facility] [address] [place], [address] Neutrophils/100 WBC (Bld) 89.8 % High 47-70 [facility] Comment on above: Performed By: #### L 100.0100, L501.9520, L501.2300, L500.4050, L501.5200 ####[facility] [address] [place], [address] Nucleated RBC (Bld) [#/Vol] 0 10*3/uL Normal 0-5 [facility] Comment on above: Performed By: #### L 100.0100, L501.9520, L501.2300, L500.4050, L501.5200 ####[facility] [address] [place], [address] Platelet mean volume (Bld) [Entitic vol] 9.6 fL Normal 6.2-12.0 [facility] Comment on above: Performed By: #### L 100.0100, L501.9520, L501.2300, L500.4050, L501.5200 ####[facility] [address] [place], [address] Platelets (Bld) [#/Vol] 257 10*3/uL Normal 150-450 [facility] Comment on above: Performed By: #### L 100.0100, L501.9520, L501.2300, L500.4050, L501.5200 ####[facility] [address] [place], [address] RBC (Bld) [#/Vol] 4.78 10*6/uL Normal 4.2-5.4 [facility] Comment on above: Performed By: #### L 100.0100, L501.9520, L501.2300, L500.4050, L501.5200 ####[facility] [address] [place], [address] RDW SD 51.0 fl High 35.1-43.9 [facility] Comment on above: Performed By: #### L 100.0100, L501.9520, L501.2300, L500.4050, L501.5200 ####[facility] [address] [place], [address] WBC (Bld) [#/Vol] 6.4 10*3/uL Normal 4.4-11.0 [facility] Comment on above: Performed By: #### L 100.0100, L501.9520, L501.2300, L500.4050, L501.5200 ####[facility] [address] [place], [address] Carbon dioxide measurementOr dered By: Gladis Luna on 09-15-2024 CO2 [Moles/Vol] 29.0 mmol/L 21.0-32.0 [facility] Chloride measurementOrdered By: Gladis Luna on 09-15-2024 Chloride [Moles/Vol] 102 mmol/L 98-107 [facility] Comprehensive Metabolic Prof ilon 09-15-2024 Albumin [Mass/Vol] 3.1 g/dL Low 3.2-5.0 [facility] Comment on above: Performed By: #### L 100.0100, L501.9520, L501.2300, L500.4050, L501.5200 ####[facility] [address] [place], [address] Albumin/Globulin [Mass ratio] 0.8 {ratio} Low 0.9-2.4 [facility] Comment on above: Performed By: #### L 100.0100, L501.9520, L501.2300, L500.4050, L501.5200 ####[facility] [address] [place], [address] ALK P 90 U/L Normal 45-117 [facility] Comment on above: Performed By: #### L 100.0100, L501.9520, L501.2300, L500.4050, L501.5200 ####[facility] [address] [place], [address] ALT [Catalytic activity/Vol] 10 U/L Low 13-56 [facility] Comment on above: Performed By: #### L 100.0100, L501.9520, L501.2300, L500.4050, L501.5200 ####[facility] [address] [place], [address] AST [Catalytic activity/Vol] 13 U/L Low 15-37 [facility] Comment on above: Performed By: #### L 100.0100, L501.9520, L501.2300, L500.4050, L501.5200 ####[facility] [address] [place], [address] Bilirubin [Mass/Vol] 0.30 mg/dL Normal 0.20-1.00 [facility] Comment on above: Result Comment: For patients on eltrombopag therapy, use of Dimension [place] TBIL is not recommended. Performed By: #### L 100.0100, L501.9520, L501.2300, L500.4050, L501.5200 ####[facility] [address] [place], [address] BUN/CRE 20.8 RATIO High 10-20 [facility] Comment on above: Performed By: #### L 100.0100, L501.9520, L501.2300, L500.4050, L501.5200 ####[facility] [address] [place], [address] CA,Total 8.6 mg/dL Normal 8.5-10.1 [facility] Comment on above: Performed By: #### L 100.0100, L501.9520, L501.2300, L500.4050, L501.5200 ####[facility] [address] [place], [address] Chloride [Moles/Vol] 102 mmol/L Normal 98-107 [facility] Comment on above: Performed By: #### L 100.0100, L501.9520, L501.2300, L500.4050, L501.5200 ####[facility] [address] [place], [address] CO2 [Moles/Vol] 29.0 mmol/L Normal 21.0-32.0 [facility] Comment on above: Performed By: #### L 100.0100, L501.9520, L501.2300, L500.4050, L501.5200 ####[facility] [address] [place], [address] Creatinine [Mass/Vol] 1.30 mg/dL High 0.55-1.02 [facility] Comment on above: Result Comment: The validity of the calculated GFR GFRAA in patients over70 years has not been determined. Clinical correlation isessential. Performed By: #### L 100.0100, L501.9520, L501.2300, L500.4050, L501.5200 ####[facility] [address] [place], [address] ECRCL 37.16 ml/min Normal [facility] Comment on above: Performed By: #### L 100.0100, L501.9520, L501.2300, L500.4050, L501.5200 ####[facility] [address] [place], [address] EST GFR - AA 52 mL/min Low >60 [facility] Comment on above: Result Comment: Afri can [facility] [place] GFR Calc Performed By: #### L 100.0100, L501.9520, L501.2300, L500.4050, L501.5200 ####[facility] [address] [place], [address] GAP 8 Normal 5-15 [facility] Comment on above: Performed By: #### L 100.0100, L501.9520, L501.2300, L500.4050, L501.5200 ####[facility] [address] [place], [address] GFR/1.73 sq M.predicted among non-blacks MDRD (S/P/Bld) [Vol rate/Area] 43 mL/min/{1.73_m2} Low >60 [facility] Comment on above: Result Comment: Non- GFR Calc Performed By: #### L 100.0100, L501.9520, L501.2300, L500.4050, L501.5200 ####[facility] [address] [place], [address] Globulin (S) [Mass/Vol] 3.8 g/dL Normal 2.2-4.2 [facility] Comment on above: Performed By: #### L 100.0100, L501.9520, L501.2300, L500.4050, L501.5200 ####[facility] [address] [place], [address] Glucose [Mass/Vol] 161 mg/dL High 74-106 [facility] Comment on above: Result Comment: Fast ing Glucose result greater than or equal to 126 mg/dLsuggests DIABETES MELLITUS per A.D.A. criteria. Performed By: #### L 100.0100, L501.9520, L501.2300, L500.4050, L501.5200 ####[facility] [address] [place], [address] Potassium [Moles/Vol] 3.9 mmol/L Normal 3.5-5.1 [facility] Comment on above: Performed By: #### L 100.0100, L501.9520, L501.2300, L500.4050, L501.5200 ####[facility] [address] [place], [address] Sodium [Moles/Vol] 139 mmol/L Normal 136-145 [facility] Comment on above: Performed By: #### L 100.0100, L501.9520, L501.2300, L500.4050, L501.5200 ####[facility] [address] [place], [address] T PROT 6.9 g/dL Normal 6.4-8.2 [facility] Comment on above: Performed By: #### L 100.0100, L501.9520, L501.2300, L500.4050, L501.5200 ####[facility] [address] [place], [address] Urea nitrogen [Mass/Vol] 27 mg/dL High 7-18 [facility] Comment on above: Performed By: #### L 100.0100, L501.9520, L501.2300, L500.4050, L501.5200 ####[facility] [address] [place], [address] Eosinophil percentageOrdered By: Gladis Luna on 09-15-2024 Eosinophils/100 WBC (Bld) 0.0 % 0-5 [facility] Erythrocyte distribution wid th ratioOrdered By: Gladis Luna on 09-15-2024 Erythrocyte distribution width (RBC) [Ratio] 15.7 % High 11.6-14.6 [facility] Erythrocyte distribution wid th standard deviationOrdered By: Gladis Luna on 09-15-2024 Erythrocyte distribution width (RBC) [Entitic vol] 51.0 fL High 35.1-43.9 [facility] Erythrocyte distribution width (RBC) [Ratio] 51.0 fl High 35.1-43.9 [facility] Estimated glomerular filtrat ion rate (GFR) AmericanOrdered By: Gladis Luna on 09-15-2024 Estimated GFR (MDRD) Amer 52 mL/min Low >60 [facility] Comment on above: GFR Calc Estimation of creatinine carmela aranceOrdered By: Gladis Luna on 09-15-2024 Estimated Creatinine Clearance Calc 37.16 ml/min [facility] Glomerular filtration rate ( GFR) estimationOrdered By: Gladis Luna on 09-15-2024 Estimated GFR (MDRD) Non-Af Amer 43 mL/min Low >60 [facility] Comment on above: Non- GFR Calc GFR/1.73 sq M.predicted among non-blacks MDRD (S/P/Bld) [Vol rate/Area] 43 mL/min/{1.73_m2} Low >60 [facility] Comment on above: Non- GFR Calc Glucose measurementOrdered B y: Gladis Luna on 09-15-2024 Glucose [Mass/Vol] 161 mg/dL High 74-106 [facility] Comment on above: Fasting Glucose resu lt greater than or equal to 126 mg/dL suggests DIABETES MELLITUS per A.D.A. criteria. Hematocrit Auto (Bld) [Volum e fraction]Ordered By: Gladis Luna on 09-15-2024 Hematocrit (Bld) [Volume fraction] 42.4 % 37-47 [facility] Hemoglobin measurementOrdere d By: Gladis Luna on 09-15-2024 Hemoglobin (Bld) [Mass/Vol] 13.2 g/dL 12.0-15.0 [facility] Immature granulocytes/100 WB C Auto (Bld)Ordered By: Gladis Luna on 09-15-2024 Immature granulocytes/100 WBC (Bld) 0.500 % 0.0-0.9 [facility] Comment on above: IG% - Immature Granu locytes (promyelocytes, myelocytes and metamyelocytes) > 1% indicates that a LEFT SHIFT is Present. Laboratory - Chemistry and C hemistry - challengeOrdered By: Gladis Luna on 09-15-2024 AST [Catalytic activity/Vol] 13 U/L Low 15-37 [facility] Lymphocytes Auto (Unsp spec) [#/Vol]Ordered By: Gladsi Luna on 09-15-2024 Lymphocytes (Bld) [#/Vol] 0.54 10*3/uL Low 0.83-4.51 [facility] Lymphocytes/100 WBC Auto (Un sp spec)Ordered By: Gladis Luna on 09-15-2024 Lymphocytes/100 WBC (Bld) 8.4 % Low 19-41 [facility] MCV (mean corpuscular volume ) determinationOrdered By: Gladis Luna on 09-15-2024 MCV (RBC) [Entitic vol] 88.7 fL 81-99 [facility] Magnesiumon 09-15-2024 Magnesium [Mass/Vol] 2.2 mg/dL Normal 1.6-2.6 [facility] Comment on above: Performed By: #### L 100.0100, L501.9520, L501.2300, L500.4050, L501.5200 ####[facility] [address] [place], [address] Magnesium measurementOrdered By: Gladis Luna on 09-15-2024 Magnesium [Mass/Vol] 2.2 mg/dL 1.6-2.6 [facility] Mean corpuscular hemoglobin (MCH) determinationOrdered By: Gladis Luna on 09-15-2024 MCH (RBC) [Entitic mass] 27.6 pg 27.0-32.0 [facility] Mean corpuscular hemoglobin concentration (MCHC) determinationOrdered By: Gladis Luna on 09-15-2024 MCHC (RBC) [Mass/Vol] 31.1 g/dL Low 32-36 [facility] Mean platelet volume determi nationOrdered By: Gladis Luna on 09-15-2024 Platelet mean volume (Bld) [Entitic vol] 9.6 fL 6.2-12.0 [facility] Monocyte percentageOrdered B y: Gladis Luna on 09-15-2024 Monocytes/100 WBC (Bld) 1.3 % 0-10 [facility] Neutrophil percentageOrdered By: Gladis Luna on 09-15-2024 Neutrophils/100 WBC (Bld) 89.8 % High 47-70 [facility] Nucleated red blood cell per centageOrdered By: Gladis Luna on 09-15-2024 Nucleated RBC/100 WBC (Bld) [Ratio] 0 % 0-5 [facility] Phosphoruson 09-15-2024 Phosphate [Mass/Vol] 3.7 mg/dL Normal 2.5-4.9 [facility] Comment on above: Performed By: #### L 100.0100, L501.9520, L501.2300, L500.4050, L501.5200 ####[facility] [address] [place], [place], [id number] Phosphorus measurementOrdere d By: Gladis Luna on 09-15-2024 Phosphorus Level 3.7 mg/dL 2.5-4.9 [facility] Platelet countOrdered By: Kadeem Luna on 09-15-2024 Platelets (Bld) [#/Vol] 257 10*3/uL 150-450 [facility] Potassium measurementOrdered By: Gladis Luna on 09-15-2024 Potassium [Moles/Vol] 3.9 mmol/L 3.5-5.1 [facility] RBC Auto (Bld) [#/Vol]Ordere d By: Gladis Luna on 09-15-2024 RBC (Bld) [#/Vol] 4.78 10*6/uL 4.2-5.4 [facility] Serum anion gap measurementO rdered By: Gladis Luna on 09-15-2024 Anion gap [Moles/Vol] 8 mmol/L 5-15 [facility] Serum globulin measurementOr dered By: Gladis Luna on 09-15-2024 Globulin (S) [Mass/Vol] 3.8 g/dL 2.2-4.2 [facility] Serum or plasma alanine tang otransferase (ALT) measurementOrdered By: Gladis Luna on 09-15-2024 ALT [Catalytic activity/Vol] 10 U/L Low 13-56 [facility] Serum or plasma albumin yovani urement (mass/volume)Ordered By: Gladis Luna on 09-15-2024 Albumin [Mass/Vol] 3.1 g/dL Low 3.2-5.0 [facility] Serum or plasma alkaline tello sphatase measurementOrdered By: Gladis Luna on 09-15-2024 ALP [Catalytic activity/Vol] 90 U/L 45-117 [facility] Serum or plasma calcium yovani urement (mass/volume)Ordered By: Gladis Luna on 09-15-2024 Calcium [Mass/Vol] 8.6 mg/dL 8.5-10.1 [facility] Serum or plasma creatinine m easurement (mass/volume)Ordered By: Gladis Luna on 09-15-2024 Creatinine [Mass/Vol] 1.30 mg/dL High 0.55-1.02 [facility] Comment on above: The validity of the calculated GFR & GFRAA in patients over 70 years has not been determined. Clinical correlation is essential. Serum or plasma thyroid stim ulating hormone (TSH) measurement (units/volume)Ordered By: Gladis Luna on 09-15-2024 TSH Qn 0.122 uIU/mL Low 0.358-3.740 [facility] Serum or plasma urea nitroge n measurement (mass/volume)Ordered By: Gladis Luna on 09-15-2024 Urea nitrogen [Mass/Vol] 27 mg/dL High 7-18 [facility] Sodium levelOrdered By: Tabitha Luna on 09-15-2024 Sodium [Moles/Vol] 139 mmol/L 136-145 [facility] TSH QnOrdered By: Gladis Collins on 09-15-2024 Thyroid Stimulating Hormone (TSH) 0.122 uIU/mL Low 0.358-3.740 [facility] Thyroid Stim Hormone (TSH)on 09-15-2024 TSH 0.122 uIU/mL Low 0.358-3.740 [facility] Comment on above: Performed By: #### L 100.0100, L501.9520, L501.2300, L500.4050, L501.5200 ####[facility] [address] [place], [address] Total proteinOrdered By: Renae Luna on 09-15-2024 Protein [Mass/Vol] 6.9 g/dL 6.4-8.2 [facility] White blood cell (WBC) count Ordered By: Gladis Luna on 09-15-2024 WBC (Bld) [#/Vol] 6.4 10*3/uL 4.4-11.0 [facility] BNP (brain natriuretic pepti de measurement)Ordered By: Melquiades Macdonald on 09-14-2024 Natriuretic peptide B (Bld) [Mass/Vol] 123.7 pg/mL High 0-100 [facility] BNP,B-Type NATRIURETIC PEPTI Aida 09-14-2024 Natriuretic peptide B (Bld) [Mass/Vol] 123.7 pg/mL High 0-100 [facility] Comment on above: Performed By: #### L 501.5425, L500.2500, L503.6620, L100.0100 ####[facility] [address] [place], [address] Basic Metabolic Profile (BMP )on 09-14-2024 BUN/CRE 17.7 RATIO Normal 10-20 [facility] Comment on above: Order Comment: 1Y Performed By: #### L 501.5425, L500.2500, L503.6620, L100.0100 ####[facility] [address] [place], [address] CA,Total 9.0 mg/dL Normal 8.5-10.1 [facility] Comment on above: Order Comment: 1Y Performed By: #### L 501.5425, L500.2500, L503.6620, L100.0100 ####[facility] [address] [place], [address] Chloride [Moles/Vol] 99 mmol/L Normal 98-107 [facility] Comment on above: Order Comment: 1Y Performed By: #### L 501.5425, L500.2500, L503.6620, L100.0100 ####[facility] [address] [place], [address] CO2 [Moles/Vol] 32.0 mmol/L Normal 21.0-32.0 [facility] Comment on above: Order Comment: 1Y Performed By: #### L 501.5425, L500.2500, L503.6620, L100.0100 ####[facility] [address] [place], [address] Creatinine [Mass/Vol] 1.47 mg/dL High 0.55-1.02 [facility] Comment on above: Order Comment: 1Y Result Comment: The validity of the calculated GFR GFRAA in patients over70 years has not been determined. Clinical correlation isessential. Performed By: #### L 501.5425, L500.2500, L503.6620, L100.0100 ####[facility] [address] [place], [address] ECRCL 35.50 ml/min Normal [facility] Comment on above: Order Comment: 1Y Performed By: #### L 501.5425, L500.2500, L503.6620, L100.0100 ####[facility] [address] [place], [address] EST GFR - AA 45 mL/min Low >60 [facility] Comment on above: Order Comment: 1Y Result Comment: Afri can [facility] GFR Calc Performed By: #### L 501.5425, L500.2500, L503.6620, L100.0100 ####[facility] [address] [place], [address] GAP 9 Normal 5-15 [facility] Comment on above: Order Comment: 1Y Performed By: #### L 501.5425, L500.2500, L503.6620, L100.0100 ####[facility] [address] [place], [address] GFR/1.73 sq M.predicted among non-blacks MDRD (S/P/Bld) [Vol rate/Area] 37 mL/min/{1.73_m2} Low >60 [facility] Comment on above: Order Comment: 1Y Result Comment: Non- GFR Calc Performed By: #### L 501.5425, L500.2500, L503.6620, L100.0100 ####[facility] [address] [place], [address] Glucose [Mass/Vol] 109 mg/dL High 74-106 [facility] Comment on above: Order Comment: 1Y Result Comment: Fast ing Glucose result from 100 to 125 mg/dLsuggests IMPAIRED HOMEOSTASIS per A.D.A. criteria. Performed By: #### L 501.5425, L500.2500, L503.6620, L100.0100 ####[facility] [address] [place], [address] Potassium [Moles/Vol] 4.0 mmol/L Normal 3.5-5.1 [facility] Comment on above: Order Comment: 1Y Performed By: #### L 501.5425, L500.2500, L503.6620, L100.0100 ####[facility] [address] [place], [address] Sodium [Moles/Vol] 140 mmol/L Normal 136-145 [facility] Comment on above: Order Comment: 1Y Performed By: #### L 501.5425, L500.2500, L503.6620, L100.0100 ####[facility] [address] [place], [address] Urea nitrogen [Mass/Vol] 26 mg/dL High 7-18 [facility] Comment on above: Order Comment: 1Y Performed By: #### L 501.5425, L500.2500, L503.6620, L100.0100 ####[facility] [address] [place], [address] Bedside Glucoseon 09-14-2024 FINGERSTICK GLU 256 mg/dL High 74-106 [facility] Comment on above: Result Comment: SHELDON MENDOZA OF PATIENT CARE PER NURSING PROTOCOL Performed By: #### L 501.080 ####[facility] [address] [place], [address] CBC W/Diff, Automatedon 08-31 Absolute Lymph 1.58 X10 3/uL Normal 0.83-4.51 [facility] Comment on above: Performed By: #### L 501.5425, L500.2500, L503.6620, L100.0100 ####[facility] [address] [place], [address] Absolute Neut 9.0 X10 3/uL High 2.0-7.7 [facility] Comment on above: Performed By: #### L 501.5425, L500.2500, L503.6620, L100.0100 ####[facility] [address] [place], [address] Basophils/100 WBC (Bld) 0.2 % Normal 0-1 [facility] Comment on above: Performed By: #### L 501.5425, L500.2500, L503.6620, L100.0100 ####[facility] [address] [place], [address] Eosinophils/100 WBC (Bld) 0.1 % Normal 0-5 [facility] Comment on above: Performed By: #### L 501.5425, L500.2500, L503.6620, L100.0100 ####[facility] [address] [place], [address] Erythrocyte distribution width (RBC) [Ratio] 15.8 % High 11.6-14.6 [facility] Comment on above: Performed By: #### L 501.5425, L500.2500, L503.6620, L100.0100 ####[facility] [address] [place], [address] Hematocrit (Bld) [Volume fraction] 44.4 % Normal 37-47 [facility] Comment on above: Performed By: #### L 501.5425, L500.2500, L503.6620, L100.0100 ####[facility] [address] [place], [address] Hemoglobin (Bld) [Mass/Vol] 13.6 g/dL Normal 12.0-15.0 [facility] Comment on above: Performed By: #### L 501.5425, L500.2500, L503.6620, L100.0100 ####[facility] [address] [place], [address] IG% 0.300 Normal 0.0-0.9 [facility] Comment on above: Result Comment: IG% - Immature Granulocytes (promyelocytes, myelocytes andmetamyelocytes) > 1% indicates that a LEFT SHIFT is Present. Performed By: #### L 501.5425, L500.2500, L503.6620, L100.0100 ####[facility] [address] [place], [address] Lymphocytes/100 WBC (Bld) 14.2 % Low 19-41 [facility] Comment on above: Performed By: #### L 501.5425, L500.2500, L503.6620, L100.0100 ####[facility] [address] [place], [address] MCH (RBC) [Entitic mass] 27.4 pg Normal 27.0-32.0 [facility] Comment on above: Performed By: #### L 501.5425, L500.2500, L503.6620, L100.0100 ####[facility] [address] [place], [address] MCHC (RBC) [Mass/Vol] 30.6 g/dL Low 32-36 [facility] Comment on above: Performed By: #### L 501.5425, L500.2500, L503.6620, L100.0100 ####[facility] [address] [place], [address] MCV (RBC) [Entitic vol] 89.3 fL Normal 81-99 [facility] Comment on above: Performed By: #### L 501.5425, L500.2500, L503.6620, L100.0100 ####[facility] [address] [place], [address] Monocytes/100 WBC (Bld) 4.4 % Normal 0-10 [facility] Comment on above: Performed By: #### L 501.5425, L500.2500, L503.6620, L100.0100 ####[facility] [address] [place], [address] Neutrophils/100 WBC (Bld) 80.8 % High 47-70 [facility] Comment on above: Performed By: #### L 501.5425, L500.2500, L503.6620, L100.0100 ####[facility] [address] [place], [address] Nucleated RBC (Bld) [#/Vol] 0 10*3/uL Normal 0-5 [facility] Comment on above: Performed By: #### L 501.5425, L500.2500, L503.6620, L100.0100 ####[facility] [address] [place], [address] Platelet mean volume (Bld) [Entitic vol] 9.6 fL Normal 6.2-12.0 [facility] Comment on above: Performed By: #### L 501.5425, L500.2500, L503.6620, L100.0100 ####[facility] [address] [place], [address] Platelets (Bld) [#/Vol] 286 10*3/uL Normal 150-450 [facility] Comment on above: Performed By: #### L 501.5425, L500.2500, L503.6620, L100.0100 ####[facility] [address] [place], [address] RBC (Bld) [#/Vol] 4.97 10*6/uL Normal 4.2-5.4 [facility] Comment on above: Performed By: #### L 501.5425, L500.2500, L503.6620, L100.0100 ####[facility] [address] [place], [address] RDW SD 50.8 fl High 35.1-43.9 [facility] Comment on above: Performed By: #### L 501.5425, L500.2500, L503.6620, L100.0100 ####[facility] [address] [place], [address] WBC (Bld) [#/Vol] 11.1 10*3/uL High 4.4-11.0 [facility] Comment on above: Performed By: #### L 501.5425, L500.2500, L503.6620, L100.0100 ####[facility] [address] [place], [address] Chest PA and Lateralon 09-14 Chest PA and Lateral Normal [facility] Echo Completeon 09-14-2024 Echo Complete Normal [facility] Emergency Department Summary on 09-14-2024 Emergency Department Summary Normal [facility] H AND P Exam - Hospitaliston 09-14-2024 H&P Exam - Hospitalist Normal [facility] Influenza virus A and B and SARS-CoV-2 (COVID-19) and Respiratory syncytial virus RNAOrdered By: Melquiades Macdonald on 09-14-2024 SARS-CoV-2 (COVID-19) RNA LEYDA+probe Ql (Unsp spec) RSV Abnormal [facility] L501.4020on 09-14-2024 TROPONIN-I HS 10 pg/mL Normal 3.0-54.0 [facility] Comment on above: Result Comment: Plea se Note: New Test Units and Gender Specific Reference Ranges. For more information see Policy Stat Procedure [place] High Sensitivity Troponin (TNIH) and attachments. Performed By: #### L 501.4020 ####[facility] [address] [place], [address] L501.5425on 09-14-2024 TROPONIN-I HS 10 pg/mL Normal 3.0-54.0 [facility] Comment on above: Order Comment: 1Y Result Comment: Plea se Note: New Test Units and Gender Specific Reference Ranges. For more information see Policy Stat Procedure [place] High Sensitivity Troponin (TNIH) and attachments. Performed By: #### L 501.5425, L500.2500, L503.6620, L100.0100 ####[facility] [address] [place], [address] M100.678on 09-14-2024 M100.678 Pending SARS-CoV-2 (COVID 19) Negative INFLUENZA A Negative INFLUENZA B Negative RSV PCR A Positive A RSV Normal [facility] Comment on above: Performed By: #### M 100.678 ####[facility] [address] [place], [address] Troponin IOrdered By: Melquiades Macdonald on 09-14-2024 Troponin I 10 pg/mL 3.0-54.0 [facility] Comment on above: Please Note: New Alexandra t Units and Gender Specific Reference Ranges. For more information see Policy Stat Procedure [place] High Sensitivity Troponin (TNIH) and attachments. Troponin I High Sensitivity 10 pg/mL 3.0-54.0 [facility] Comment on above: Please Note: New Alexandra t Units and Gender Specific Reference Ranges. For more information see Policy Stat Procedure [place] High Sensitivity Troponin (TNIH) and attachments. Venous Duplex US - Madan Extre mon 09-14-2024 Venous Duplex US - Madan Extrem Normal [facility] 12 Lead EKGon 09-12-2024 12 Lead EKG Normal [facility] Absolute lymphocyte countOrd ered By: Wilver Gilbert on 09-12-2024 Lymphocytes Auto (Unsp spec) [#/Vol] 1.99 10*3/uL 0.83-4.51 [facility] Absolute neutrophil countOrd ered By: Wilver Gilbert on 09-12-2024 Neutrophils (Bld) [#/Vol] 4.0 10*3/uL 2.0-7.7 [facility] Automated lymphocyte count a s percentage of total leukocytesOrdered By: Wilver Gilbert on 09-12-2024 Lymphocytes/100 WBC Auto (Unsp spec) 29.9 % 19-41 [facility] BNP (brain natriuretic pepti de measurement)Ordered By: Wilver Gilbert on 09-12-2024 Natriuretic peptide B (Bld) [Mass/Vol] 342.3 pg/mL High 0-100 [facility] BNP,B-Type NATRIURETIC PEPTI Aida 09-12-2024 Natriuretic peptide B (Bld) [Mass/Vol] 342.3 pg/mL High 0-100 [facility] Comment on above: Performed By: #### L 300.8000, L503.6620 ####[facility] [address] [place], [address] Basic Metabolic Profile (BMP )on 09-12-2024 BUN/CRE 13.1 RATIO Normal 10-20 [facility] Comment on above: Order Comment: 1Y Performed By: #### L 500.2500, L100.0100, L501.5425 ####[facility] [address] [place], [address] CA,Total 8.9 mg/dL Normal 8.5-10.1 [facility] Comment on above: Order Comment: 1Y Performed By: #### L 500.2500, L100.0100, L501.5425 ####[facility] [address] [place], [address] Chloride [Moles/Vol] 108 mmol/L High 98-107 [facility] Comment on above: Order Comment: 1Y Performed By: #### L 500.2500, L100.0100, L501.5425 ####[facility] [address] [place], [address] CO2 [Moles/Vol] 29.0 mmol/L Normal 21.0-32.0 [facility] Comment on above: Order Comment: 1Y Performed By: #### L 500.2500, L100.0100, L501.5425 ####[facility] [address] [place], [address] Creatinine [Mass/Vol] 1.22 mg/dL High 0.55-1.02 [facility] Comment on above: Order Comment: 1Y Result Comment: The validity of the calculated GFR GFRAA in patients over70 years has not been determined. Clinical correlation isessential. Performed By: #### L 500.2500, L100.0100, L501.5425 ####[facility] [address] [place], [address] ECRCL 43.14 ml/min Normal [facility] Comment on above: Order Comment: 1Y Performed By: #### L 500.2500, L100.0100, L501.5425 ####[facility] [address] [place], [address] EST GFR - AA 56 mL/min Low >60 [facility] Comment on above: Order Comment: 1Y Result Comment: Afri can [facility] GFR Calc Performed By: #### L 500.2500, L100.0100, L501.5425 ####[facility] [address] [place], [address] GAP 2 Low 5-15 [facility] Comment on above: Order Comment: 1Y Performed By: #### L 500.2500, L100.0100, L501.5425 ####[facility] [address] [place], [address] GFR/1.73 sq M.predicted among non-blacks MDRD (S/P/Bld) [Vol rate/Area] 46 mL/min/{1.73_m2} Low >60 [facility] Comment on above: Order Comment: 1Y Result Comment: Non- GFR Calc Performed By: #### L 500.2500, L100.0100, L501.5425 ####[facility] [address] [place], [address] Glucose [Mass/Vol] 92 mg/dL Normal 74-106 [facility] Comment on above: Order Comment: 1Y Performed By: #### L 500.2500, L100.0100, L501.5425 ####[facility] [address] [place], [address] Potassium [Moles/Vol] 4.7 mmol/L Normal 3.5-5.1 [facility] Comment on above: Order Comment: 1Y Performed By: #### L 500.2500, L100.0100, L501.5425 ####[facility] [address] [place], [address] Sodium [Moles/Vol] 139 mmol/L Normal 136-145 [facility] Comment on above: Order Comment: 1Y Performed By: #### L 500.2500, L100.0100, L501.5425 ####[facility] [address] [place], [address] Urea nitrogen [Mass/Vol] 16 mg/dL Normal 7-18 [facility] Comment on above: Order Comment: 1Y Performed By: #### L 500.2500, L100.0100, L501.5425 ####[facility] [address] [place], [address] Basophil percentageOrdered B y: Wilver Gilbert on 09-12-2024 Basophils/100 WBC (Bld) 0.8 % 0-1 [facility] Blood urea nitrogen (BUN)/cr eatinine ratioOrdered By: Wilver Gilbert on 09-12-2024 Urea nitrogen/Creatinine [Mass ratio] 13.1 mg/mg 10-20 [facility] CBC W/Diff, Automatedon 08-31 Absolute Lymph 1.99 X10 3/uL Normal 0.83-4.51 [facility] Comment on above: Performed By: #### L 500.2500, L100.0100, L501.5425 ####[facility] [address] [place], [address] Absolute Neut 4.0 X10 3/uL Normal 2.0-7.7 [facility] Comment on above: Performed By: #### L 500.2500, L100.0100, L501.5425 ####[facility] [address] [place], [address] Basophils/100 WBC (Bld) 0.8 % Normal 0-1 [facility] Comment on above: Performed By: #### L 500.2500, L100.0100, L501.5425 ####[facility] [address] [place], [address] Eosinophils/100 WBC (Bld) 2.4 % Normal 0-5 [facility] Comment on above: Performed By: #### L 500.2500, L100.0100, L501.5425 ####[facility] [address] [place], [address] Erythrocyte distribution width (RBC) [Ratio] 15.7 % High 11.6-14.6 [facility] Comment on above: Performed By: #### L 500.2500, L100.0100, L501.5425 ####[facility] [address] [place], [address] Hematocrit (Bld) [Volume fraction] 41.7 % Normal 37-47 [facility] Comment on above: Performed By: #### L 500.2500, L100.0100, L501.5425 ####[facility] [address] [place], [address] Hemoglobin (Bld) [Mass/Vol] 12.7 g/dL Normal 12.0-15.0 [facility] Comment on above: Performed By: #### L 500.2500, L100.0100, L501.5425 ####[facility] [address] [place], [address] IG% 0.300 Normal 0.0-0.9 [facility] Comment on above: Result Comment: IG% - Immature Granulocytes (promyelocytes, myelocytes andmetamyelocytes) > 1% indicates that a LEFT SHIFT is Present. Performed By: #### L 500.2500, L100.0100, L501.5425 ####[facility] [address] [place], [address] Lymphocytes/100 WBC (Bld) 29.9 % Normal 19-41 [facility] Comment on above: Performed By: #### L 500.2500, L100.0100, L501.5425 ####[facility] [address] [place], [address] MCH (RBC) [Entitic mass] 27.4 pg Normal 27.0-32.0 [facility] Comment on above: Performed By: #### L 500.2500, L100.0100, L501.5425 ####[facility] [address] [place], [address] MCHC (RBC) [Mass/Vol] 30.5 g/dL Low 32-36 [facility] Comment on above: Performed By: #### L 500.2500, L100.0100, L501.5425 ####[facility] [address] [place], [address] MCV (RBC) [Entitic vol] 90.1 fL Normal 81-99 [facility] Comment on above: Performed By: #### L 500.2500, L100.0100, L501.5425 ####[facility] [address] [place], [address] Monocytes/100 WBC (Bld) 6.6 % Normal 0-10 [facility] Comment on above: Performed By: #### L 500.2500, L100.0100, L501.5425 ####[facility] [address] [place], [address] Neutrophils/100 WBC (Bld) 60.0 % Normal 47-70 [facility] Comment on above: Performed By: #### L 500.2500, L100.0100, L501.5425 ####[facility] [address] [place], [address] Nucleated RBC (Bld) [#/Vol] 0 10*3/uL Normal 0-5 [facility] Comment on above: Performed By: #### L 500.2500, L100.0100, L501.5425 ####[facility] [id number] [place], [address] Platelet mean volume (Bld) [Entitic vol] 9.7 fL Normal 6.2-12.0 [facility] Comment on above: Performed By: #### L 500.2500, L100.0100, L501.5425 ####[facility] [address] [place], [address] Platelets (Bld) [#/Vol] 255 10*3/uL Normal 150-450 [facility] Comment on above: Performed By: #### L 500.2500, L100.0100, L501.5425 ####[facility] [id number] [place], [address] RBC (Bld) [#/Vol] 4.63 10*6/uL Normal 4.2-5.4 [facility] Comment on above: Performed By: #### L 500.2500, L100.0100, L501.5425 ####[facility] [id number] [place], [address] RDW SD 51.3 fl High 35.1-43.9 [facility] Comment on above: Performed By: #### L 500.2500, L100.0100, L501.5425 ####[facility] [id number] [place], [address] WBC (Bld) [#/Vol] 6.7 10*3/uL Normal 4.4-11.0 [facility] Comment on above: Performed By: #### L 500.2500, L100.0100, L501.5425 ####[facility] [id number] [place], [address] CTA Chest W/WO Contraston CTA Chest W/WO Contrast Normal [facility] Carbon dioxide measurementOr dered By: Wilver Gilbert on 09-12-2024 CO2 [Moles/Vol] 29.0 mmol/L 21.0-32.0 [facility] Chest 1 View (Portable)on Chest 1 View (Portable) Normal [facility] Chloride measurementOrdered By: Wilver Gilbert on 09-12-2024 Chloride [Moles/Vol] 108 mmol/L High 98-107 [facility] D-Dimer Quantitative (DVT/PE )on 09-12-2024 D-DIMER QUANT 1.11 FEU/ug/m Invalid Interpretation Code 0.27-0.49 [facility] Comment on above: Order Comment: CRITI PAULINE VALUE CALLED TO [id number]/13/25 Jeremy Shearer.RESULTS READ BACK BY SAME. Result Comment: D-Di doyle ELEVATED (>0.49): Additional studies and clinicalassessments are indicated to conclude diagnosis of:Deep Vein Thrombosis (DVT) or Pulmonary Embolism (PE) Performed By: #### L 300.8000, L503.6620 ####[facility] [address] [place], [address] D-dimer measurement for deep venous thrombosisOrdered By: Wilver Gilbert on 09-12-2024 D-Dimer Quantitative (PE/DVT) 1.11 FEU/ug/m High 0.27-0.49 [facility] Comment on above: D-Dimer ELEVATED (>0 .49): Additional studies and clinicalassessments are indicated to conclude diagnosis of:Deep Vein Thrombosis (DVT) or Pulmonary Embolism (PE) Emergency Department Summary on 09-12-2024 Emergency Department Summary Normal [facility] Eosinophil percentageOrdered By: Wilver Gilbert on 09-12-2024 Eosinophils/100 WBC (Bld) 2.4 % 0-5 [facility] Erythrocyte distribution wid th ratioOrdered By: Wilver Gilbert on 09-12-2024 Erythrocyte distribution width (RBC) [Ratio] 15.7 % High 11.6-14.6 [facility] Erythrocyte distribution wid th standard deviationOrdered By: Wilver Gilbert on 09-12-2024 Erythrocyte distribution width (RBC) [Entitic vol] 51.3 fL High 35.1-43.9 [facility] Erythrocyte distribution width (RBC) [Ratio] 51.3 fl High 35.1-43.9 [facility] Estimated glomerular filtrat ion rate (GFR) AmericanOrdered By: Wilver Gilbert on 09-12-2024 Estimated GFR (MDRD) Amer 56 mL/min Low >60 [facility] Comment on above: GFR Calc Estimation of creatinine carmela aranceOrdered By: Wilver Gilbert on 09-12-2024 Estimated Creatinine Clearance Calc 43.14 ml/min [facility] Glomerular filtration rate ( GFR) estimationOrdered By: Wilver Gilbert on 09-12-2024 Estimated GFR (MDRD) Non-Af Amer 46 mL/min Low >60 [facility] Comment on above: Non- GFR Calc GFR/1.73 sq M.predicted among non-blacks MDRD (S/P/Bld) [Vol rate/Area] 46 mL/min/{1.73_m2} Low >60 [facility] Comment on above: Non- GFR Calc Glucose measurementOrdered B y: Wilver Gilbert on 09-12-2024 Glucose [Mass/Vol] 92 mg/dL 74-106 [facility] Hematocrit Auto (Bld) [Volum e fraction]Ordered By: Wilver Gilbert on 09-12-2024 Hematocrit (Bld) [Volume fraction] 41.7 % 37-47 [facility] Hemoglobin measurementOrdere d By: Wilver Gilbert on 09-12-2024 Hemoglobin (Bld) [Mass/Vol] 12.7 g/dL 12.0-15.0 [facility] Immature granulocytes/100 WB C Auto (Bld)Ordered By: Wilver Gilbert on 09-12-2024 Immature granulocytes/100 WBC (Bld) 0.300 % 0.0-0.9 [facility] Comment on above: IG% - Immature Granu locytes (promyelocytes, myelocytes and metamyelocytes) > 1% indicates that a LEFT SHIFT is Present. Influenza virus A and B and SARS-CoV-2 (COVID-19) and Respiratory syncytial virus RNAOrdered By: Wilver Gilbert on 09-12-2024 SARS-CoV-2 (COVID-19) RNA LEYDA+probe Ql (Unsp spec) [facility] L501.4020on 09-12-2024 TROPONIN-I HS 11 pg/mL Normal 3.0-54.0 [facility] Comment on above: Result Comment: Plea se Note: New Test Units and Gender Specific Reference Ranges. For more information see Policy Stat Procedure [place] High Sensitivity Troponin (TNIH) and attachments. Performed By: #### L 501.4020 ####[facility] [id number] [place], [address] L501.5425on 09-12-2024 TROPONIN-I HS 14 pg/mL Normal 3.0-54.0 [facility] Comment on above: Order Comment: 1Y Result Comment: Plea se Note: New Test Units and Gender Specific Reference Ranges. For more information see Policy Stat Procedure [place] High Sensitivity Troponin (TNIH) and attachments. Performed By: #### L 500.2500, L100.0100, L501.5425 ####[facility] [id number] [place], [place], [address] Lymphocytes Auto (Unsp spec) [#/Vol]Ordered By: Wilver Gilbert on 09-12-2024 Lymphocytes (Bld) [#/Vol] 1.99 10*3/uL 0.83-4.51 [facility] Lymphocytes/100 WBC Auto (Un sp spec)Ordered By: Wilver Gilbert on 09-12-2024 Lymphocytes/100 WBC (Bld) 29.9 % 19-41 [facility] M100.678on 09-12-2024 M100.678 Pending SARS-CoV-2 (COVID 19) Negative INFLUENZA A Negative INFLUENZA B Negative RSV PCR Negative Normal [facility] Comment on above: Performed By: #### M 100.678 ####[facility] [address] [place], [place], [address] MCV (mean corpuscular volume ) determinationOrdered By: Wilver Gilbert on 09-12-2024 MCV (RBC) [Entitic vol] 90.1 fL 81-99 [facility] Mean corpuscular hemoglobin (MCH) determinationOrdered By: Wilver Gilbert on 09-12-2024 MCH (RBC) [Entitic mass] 27.4 pg 27.0-32.0 [facility] Mean corpuscular hemoglobin concentration (MCHC) determinationOrdered By: Wilver Gilbert on 09-12-2024 MCHC (RBC) [Mass/Vol] 30.5 g/dL Low 32-36 [facility] Mean platelet volume determi nationOrdered By: Wilver Gilbert on 09-12-2024 Platelet mean volume (Bld) [Entitic vol] 9.7 fL 6.2-12.0 [facility] Monocyte percentageOrdered B y: Wilver Gilbert on 09-12-2024 Monocytes/100 WBC (Bld) 6.6 % 0-10 [facility] Neutrophil percentageOrdered By: Wilver Gilbert on 09-12-2024 Neutrophils/100 WBC (Bld) 60.0 % 47-70 [facility] Nucleated red blood cell per centageOrdered By: Wilver Gilbert on 09-12-2024 Nucleated RBC/100 WBC (Bld) [Ratio] 0 % 0-5 [facility] Platelet countOrdered By: Bob contreras Yannick on 09-12-2024 Platelets (Bld) [#/Vol] 255 10*3/uL 150-450 [facility] Potassium measurementOrdered By: Wilver Gilbert on 09-12-2024 Potassium [Moles/Vol] 4.7 mmol/L 3.5-5.1 [facility] RBC Auto (Bld) [#/Vol]Ordere d By: Wilver Gilbert on 09-12-2024 RBC (Bld) [#/Vol] 4.63 10*6/uL 4.2-5.4 [facility] Serum anion gap measurementO rdered By: Wilver Gilbert on 09-12-2024 Anion gap [Moles/Vol] 2 mmol/L Low 5-15 [facility] Serum or plasma calcium yovani urement (mass/volume)Ordered By: Wilver Gilbert on 09-12-2024 Calcium [Mass/Vol] 8.9 mg/dL 8.5-10.1 [facility] Serum or plasma creatinine m easurement (mass/volume)Ordered By: Wilver Gilbert on 09-12-2024 Creatinine [Mass/Vol] 1.22 mg/dL High 0.55-1.02 [facility] Comment on above: The validity of the calculated GFR & GFRAA in patients over 70 years has not been determined. Clinical correlation is essential. Serum or plasma urea nitroge n measurement (mass/volume)Ordered By: Wilver Gilbert on 09-12-2024 Urea nitrogen [Mass/Vol] 16 mg/dL 7-18 [facility] Sodium levelOrdered By: Wilver Gilbert on 09-12-2024 Sodium [Moles/Vol] 139 mmol/L 136-145 [facility] Troponin IOrdered By: Wilver martin on 09-12-2024 Troponin I 11 pg/mL 3.0-54.0 [facility] Comment on above: Please Note: New Alexandra t Units and Gender Specific Reference Ranges. For more information see Policy Stat Procedure [place] High Sensitivity Troponin (TNIH) and attachments. Troponin I High Sensitivity 11 pg/mL 3.0-54.0 [facility] Comment on above: Please Note: New Alexandra t Units and Gender Specific Reference Ranges. For more information see Policy Stat Procedure [place] High Sensitivity Troponin (TNIH) and attachments. Venous Duplex US - Madan Extre mon 09-12-2024 Venous Duplex US - Madan Extrem Normal [facility] White blood cell (WBC) count Ordered By: Wilver Gilbert on 09-12-2024 WBC (Bld) [#/Vol] 6.7 10*3/uL 4.4-11.0 [facility] Vital Signs Date Time Vital Sign Value Performing Clinician Blake alvarado 05-08-2025 21:29-0400 Body temperature 98.8 [degF] Dr. Daniele Salazar MD Work Phone: [facility] 05-08-2025 21:29-0400 Diastolic blood pressure 65 mm[Hg] Dr. Daniele Slaazar MD Work Phone: [facility] 05-08-2025 21:29-0400 Heart rate 81 /min Dr. Daniele Salazar MD Work Phone: [facility] 05-08-2025 21:29-0400 Respiratory rate 21 /min Dr. Daniele Salazar MD Work Phone: [facility] 05-08-2025 21:29-0400 SaO2% (BldA) [Mass fraction] 96 % Dr. Daniele Salazar MD Work Phone: [facility] 05-08-2025 21:29-0400 Systolic blood pressure 154 mm[Hg] Dr. Daniele Salazar MD Work Phone: [facility] 05-08-2025 20:00-0400 Inhaled oxygen flow rate 3 L/min Dr. Daniele Salazar MD Work Phone: [facility] 05-08-2025 18:06-0400 Body height 167.[address] Daniele Salazar MD Work Phone: [facility] 05-08-2025 18:06-0400 Body mass index (BMI) [Ratio] 27.1 kg/m2 Dr. Daniele Salazar MD Work Phone: [facility] 05-08-2025 18:06-0400 Body weight 76.[address] Daniele Salazar MD Work Phone: [facility] 04-24-2025 07:00-0400 Diastolic blood pressure 71 mm[Hg] Dr. Daniele Salazar MD Work Phone: [facility] 04-24-2025 07:00-0400 Heart rate 65 /min Dr. Daniele Salazar MD Work Phone: [facility] 04-24-2025 07:00-0400 Inhaled oxygen flow rate 2 L/min Dr. Daniele Salazar MD Work Phone: [facility] 04-24-2025 07:00-0400 Respiratory rate 18 /min Dr. Daniele Salazar MD Work Phone: [facility] 04-24-2025 07:00-0400 SaO2% (BldA) [Mass fraction] 100 % Dr. Daniele Salazar MD Work Phone: [facility] 04-24-2025 07:00-0400 Systolic blood pressure 147 mm[Hg] Dr. Daniele Salazar MD Work Phone: [facility] 04-24-2025 03:40-0400 Body temperature 98 [degF] Dr. Daniele Salazar MD Work Phone: [facility] 04-24-2025 00:25-0400 Body height [address] Daniele Salazar MD Work Phone: [facility] 04-24-2025 00:25-0400 Body mass index (BMI) [Ratio] 25.2 kg/m2 Dr. Daniele Salazar MD Work Phone: [facility] 04-24-2025 00:25-0400 Body weight 71.[address] Daniele Salazar MD Work Phone: [facility] 11-12-2024 14:00-0400 Body temperature 97.9 [degF] Dr. Wilver Apodaca Work Phone: [facility] 11-12-2024 14:00-0400 Diastolic blood pressure 89 mm[Hg] Dr. Wilver Apodaca Work Phone: 8(601)832-305054 [place] [address] 11-12-2024 14:00-0400 Systolic blood pressure 137 mm[Hg] Dr. Wilver Apodaca Work Phone: 6(688)728-729294 [place] [address] 11-12-2024 13:42-0400 Heart rate 75 /min Dr. Wilver Apodaca Work Phone: 8(058)530-816794 [place] [address] 11-12-2024 13:42-0400 Inhaled oxygen flow rate 3 L/min Dr. Wilver Apodaca Work Phone: 4(621)189-082794 [place] [address] 11-12-2024 13:42-0400 Respiratory rate 16 /min Dr. Wilver Apodaca Work Phone: 2(171)018-820194 [place] [address] 11-12-2024 13:42-0400 SaO2% (BldA) [Mass fraction] 94 % Dr. Wilver Apodaca Work Phone: 3(945)751-030394 [place] [address] 11-11-2024 13:50-0400 Body height 167.[address] Wilver Apodaca Work Phone: 4(315)711-256194 [place] [address] 11-11-2024 13:50-0400 Body weight 69.[address] Wilver Apodaca Work Phone: 7(576)191-614294 [place] [address] 11-11-2024 00:00-0400 Body mass index (BMI) [Ratio] 24.8 kg/m2 Dr. Wilver Apodaca Work Phone: 8(537)928-718894 [place] [address] 11-10-2024 20:00-0400 Body temperature 98.3 [degF] Dr. Wilver Apodaca Work Phone: 8(765)507-623654 [place] [address] 11-10-2024 20:00-0400 Diastolic blood pressure 81 mm[Hg] Dr. Wilver Apodaca Work Phone: 9(343)748-976694 [place] [address] 11-10-2024 20:00-0400 Heart rate 70 /min Dr. Wilver Apodaca Work Phone: 6(731)549-564894 [place] [address] 11-10-2024 20:00-0400 Inhaled oxygen flow rate 3 L/min Dr. Wilver Apodaca Work Phone: [facility] 11-10-2024 20:00-0400 Respiratory rate 16 /min Dr. Wilver Apodaca Work Phone: 7(279)974-606754 [place] [address] 11-10-2024 20:00-0400 SaO2% (BldA) [Mass fraction] 94 % Dr. Wilver Apodaca Work Phone: 9(357)434-461054 [place] [address] 11-10-2024 20:00-0400 Systolic blood pressure 145 mm[Hg] Dr. Wilver Apodaca Work Phone: 6(588)227-308954 [place] [address] 11-10-2024 15:03-0400 Body height 167.[address] Wilver Apodaca Work Phone: 4(967)714-719654 [place] [address] 11-10-2024 15:03-0400 Body mass index (BMI) [Ratio] 25.9 kg/m2 Dr. Wilver Apodaca Work Phone: 7(481)329-738054 [place] [address] 11-10-2024 15:03-0400 Body weight 73.[address] Wilver Apodaca Work Phone: 4(070)183-543754 [place] [address] 10-14-2024 14:00-0500 Diastolic blood pressure 61 mm[Hg] Dr. Wilver Apodaca Work Phone: 5(354)170-438754 [place] [address] 10-14-2024 14:00-0500 Heart rate 72 /min Dr. Wilver Apodaca Work Phone: 5(968)191-234154 [place] [address] 10-14-2024 14:00-0500 Inhaled oxygen flow rate 3 L/min Dr. Wilver Apodaca Work Phone: 9(970)127-388054 [place] [address] 10-14-2024 14:00-0500 Respiratory rate 17 /min Dr. Wilver Apodaca Work Phone: 3(678)080-485554 [place] [address] 10-14-2024 14:00-0500 SaO2% (BldA) [Mass fraction] 97 % Dr. Wilver Apodaca Work Phone: [facility] 10-14-2024 14:00-0500 Systolic blood pressure 142 mm[Hg] Dr. Wilver Le DO Work Phone: 7(250)420-564454 [place] [address] 10-14-2024 01:55-0500 Body temperature 98.7 [degF] Dr. Wilver Apodaca Work Phone: 0(857)083-433054 [place] [address] 10-13-2024 22:52-0500 Body mass index (BMI) [Ratio] 27.7 kg/m2 Dr. Wilver Apodaca Work Phone: 3(930)075-434954 [place] [address] 10-13-2024 22:52-0500 Body weight 77.[address] Wilver Apodaca Work Phone: 0(921)880-601694 [place] [address] 09-16-2024 15:51-0500 Body temperature 98.5 [degF] Dr. Wilver Apodaca Work Phone: 1(665)023-546594 [place] [address] 09-16-2024 15:51-0500 Diastolic blood pressure 89 mm[Hg] Dr. Wilver Apodaca Work Phone: 2(348)717-270894 [place] [address] 09-16-2024 15:51-0500 Heart rate 98 /min Dr. Wilver Apodaca Work Phone: 6(656)556-612694 [place] [address] 09-16-2024 15:51-0500 Inhaled oxygen flow rate 2 L/min Dr. Wilver Apodaca Work Phone: 9(055)310-018694 [place] [address] 09-16-2024 15:51-0500 Respiratory rate 20 /min Dr. Wilver Apodaca Work Phone: 4(746)641-497594 [place] [address] 09-16-2024 15:51-0500 SaO2% (BldA) [Mass fraction] 99 % Dr. Wilver Apodaca Work Phone: 2(110)526-699554 [place] [address] 09-16-2024 15:51-0500 Systolic blood pressure 144 mm[Hg] Dr. Wilver Apodaca Work Phone: 6(845)722-387094 [place] [address] 09-16-2024 06:00-0500 Body mass index (BMI) [Ratio] 24.3 kg/m2 Dr. Wilver Apodaca Work Phone: 6(448)263-899454 [place] [address] 09-16-2024 06:00-0500 Body weight 68.[address] Wilver Apodaca Work Phone: [facility] 09-12-2024 18:00-0500 Body temperature 98 [degF] Dr. Wilver Apodaca Work Phone: [facility] 09-12-2024 18:00-0500 Diastolic blood pressure 77 mm[Hg] Dr. Wilver Apodaca Work Phone: [facility] 09-12-2024 18:00-0500 Heart rate 88 /min Dr. Wilver Apodaca Work Phone: [facility] 09-12-2024 18:00-0500 Respiratory rate 22 /min Dr. Wilver Apodaca Work Phone: [facility] 09-12-2024 18:00-0500 SaO2% (BldA) [Mass fraction] 96 % Dr. Wilver Apodaca Work Phone: [facility] 09-12-2024 18:00-0500 Systolic blood pressure 177 mm[Hg] Dr. Wilver Apodaca Work Phone: [facility] 09-12-2024 17:00-0500 Inhaled oxygen flow rate 2 L/min Dr. Wilver Apodaca Work Phone: [facility] 09-12-2024 14:03-0500 Body mass index (BMI) [Ratio] 25.8 kg/m2 Dr. Wilver Apodaca Work Phone: [facility] 09-12-2024 14:03-0500 Body weight 72.[address] Wilver Apodaca Work Phone: [facility] Encounters Encounter Date Encounter Type Care Provider Facility Start: 07-15-[address] [facility] Facility:[facility] Start: 06-05-2025 End: 06-05-[address] [facility] Facility:[facility] Start: 05-08-2025 End: 05-08-2025 Emergency department patient visit Dr. Daniele Salazar MD Work Phone: -Emergency Department Work Phone: Start: 05-04-2025 End: 05-04-[address] Daniele Salazar MD Work Phone: -Radiology [facility] Start: 05-04-2025 End: 05-04-[address] Daniele Salazar MD -Radiology [facility] Work Phone: Start: 05-04-2025 End: 05-04-2025 ambulatory [facility] Facility:[facility] Start: 04-24-2025 End: 04-24-2025 Emergency department patient visit Dr. Daniele Salazar MD Work Phone: -Emergency Department Work Phone: Start: 04-20-2025 End: 04-20-[address] Daniele Salazar MD Work Phone: -Laboratory [facility]y [facility] 3rd Flr Start: 04-20-2025 End: 04-20-[address] Daniele Salazar MD -Laboratory Phy Office 3rd Flr Start: 04-20-2025 End: 04-20-2025 [facility] Facility:[facility] Start: 03-10-2025 End: 03-10-[address] Daniele Salazar MD Work Phone: -Laboratory Phy Office 3rd Flr Start: 03-10-2025 End: 03-10-[address] Daniele Salazar MD -Laboratory Phy Office 3rd Flr Start: 03-10-2025 End: 03-10-2025 [facility] Start: 01-02-2025 End: 01-02-[address] Wilver Apodaca Work Phone: [facility] Work Phone: Start: 01-02-2025 End: 01-02-[address] Daniele Salazar MD -Laboratory Work Phone: Start: 01-02-2025 End: 01-02-2025 ambulatory [facility] Facility:[facility] Start: 12-21-2024 End: 12-21-[address] Wilver Apodaca Work Phone: [facility] Work Phone: Start: 12-21-2024 End: 12-21-[address] Daniele Salazar MD -Laboratory Work Phone: Start: 12-21-2024 End: 12-21-2024 ambulatory Daniele Salazar Facility:[facility] Start: 11-14-2024 End: 11-16-2024 ambulatory No Primary Care Physician [place] [place]: 11-12-2024 Non-patient / Non-visit Dr. Chana christian MD -[facility] Work Phone: Start: 11-11-2024 Non-patient / Non-visit Dr. Chana christian MD -[facility] Work Phone: Start: 11-10-2024 Non-patient / Non-visit Dr. Gaurang Donahue MD -[facility] Work Phone: Start: 11-10-2024 End: 11-12-2024 ambulatory Toan Godfrey Facility:[facility] Start: 11-10-2024 End: 11-12-2024 Evaluation and management of inpatient Dr. Gaurang Donahue MD -[facility] 3 Work Phone: Start: 11-10-2024 End: 11-12-[address] Wilver Apodaca Work Phone: [facility] Work Phone: Start: 10-13-2024 End: 10-14-2024 Emergency department patient visit Dr. Pako Fink MD -Emergency Department Work Phone: Start: 09-16-2024 Non-patient / Non-visit Dr. Karthik De Jesus DO -[facility] Work Phone: Start: 09-15-2024 Non-patient / Non-visit Dr. Karthik De Jesus DO -[facility] Work Phone: Start: 09-15-2024 ambulatory Reema Campuzano Facility:[facility] Start: 09-15-2024 Non-patient / Non-visit Dr. Reema fitch MD -[facility] Start: 09-14-2024 ambulatory No Primary Car e Physician [place] Start: 09-14-2024 End: 09-16-2024 Evaluation and management of inpatient Dr. Karthik Rodrigues DO -[facility] 3 Work Phone: Start: 09-12-2024 End: 09-12-2024 Emergency department patient visit Dr. Wilver Apodaca -Emergency Department Work Phone: Procedures Date Procedure Procedure Detail Performing Clinician Start: 05-08-2025 X-ray of chest, PA a nd lateral views Dr. Daniele Salazar MD Work Phone: Start: 05-08-[address] Daniele Salazar MD Work Phone: Start: 05-04-2025 X-ray of lumbosacral spine Dr. Daniele Salazar MD Work Phone: Start: 04-24-2025 Computed tomography of abdomen and pelvis with intravenous contrast Dr. Daniele Salazar MD Work Phone: Start: 04-24-[address] Daniele Salazar MD Work Phone: Start: 03-10-2025 Vitamin D, 25-hydrox y measurement [...] HCV Quant by PCR testing - HCVPCR #[id number] Non Reactive: < 0.8 Equivocal: >/= 0.8 [...] 09-15-2024 Assay of phosphorus inorganic Dr. Wilver Apodaca Work Phone: Start: 09-15-[address] Wilver Apodaca Work Phone: Start: 09-15-2024 Measurement of renal function Dr. Wilver Gilbert DO Work Phone: Comment on above: GFR Calc Start: 09-14-2024 SARS-CoV-2, Influenz a & RSV (PCR) Dr. Wilver Gilbert DO Work Phone: Start: 09-14-2024 X-ray of chest, [...] Treatment Date Care Activity Detail Author Start: 05-08-2025 [facility] Start: 05-08-2025 [facility] Start: 04-24-2025 [facility] Start: 11-12-2024 Patient discharge [facility] Start: 11-11-2024 Oxygen therapy [facility] Start: 11-10-2024 Following clinical pathway protocol [facility] Start: 11-10-2024 Assessment of risk of venous thromboembolism [facility] Start: 11-10-2024 Elevation of head of bed [facility] Start: 11-10-2024 Incentive spirometry [facility] Start: 11-10-2024 Inhalation therapy procedure [facility] Start: 11-10-2024 Insertion of catheter into peripheral vein [facility] Start: 11-10-2024 Measuring intake and output [facility] Start: 11-10-2024 Patient education [facility] Start: 11-10-2024 Providing care according to standard [facility] Start: 11-10-2024 Provision of activity privileges [facility] Start: 11-10-2024 Referral to service [facility] Start: 11-10-2024 [facility] Start: 11-10-2024 Following clinical pathway protocol [facility] Start: 11-10-2024 Hospital admission, emergency, from emergency room, medical nature [facility] Start: 11-10-2024 Legionella pneumophila Ag [Presence] in Urine [facility] Start: 11-10-2024 Verification routine [facility] Start: 11-10-2024 Admission procedure [facility] Start: 11-10-2024 [facility] Start: 11-10-2024 Consultation [facility] Start: 11-10-2024 Patient referral to dietitian [facility] Start: 10-14-2024 [facility] Start: 10-13-2024 [facility] Start: 09-16-2024 Patient discharge [facility] Start: 09-15-2024 [facility] Start: 09-15-2024 Following clinical pathway protocol [facility] Start: 09-14-2024 Assessment of risk of venous thromboembolism [facility] Start: 09-14-2024 Care regimes management [facility] Start: 09-14-2024 Catheterization of vein [facility] Start: 09-14-2024 Insertion of catheter into peripheral vein [facility] Start: 09-14-2024 Measuring intake and output [facility] Start: 09-14-2024 Notification of physician [facility] Start: 09-14-2024 Oxygen therapy [facility] Start: 09-14-2024 Providing care according to standard [facility] Start: 09-14-2024 Provision of activity privileges [facility] Start: 09-14-2024 Referral to service [facility] Start: 09-14-2024 Respiratory secretion precautions [facility] Start: 09-14-2024 Tobacco use cessation education [facility] Start: 09-14-2024 End: 09-14-2024 [facility] Start: 09-14-2024 Following clinical pathway protocol [facility] Start: 09-14-2024 Admission procedure [facility] Start: 09-14-2024 Consultation [facility] Start: 09-14-2024 Inhalation therapy procedure [facility] Start: 09-14-2024 Patient referral to dietitian [facility] Start: 09-12-2024 [facility] Start: 09-12-2024 [facility] Start: 09-12-2024 Emergency department visit moderate severity EMERGENCY DEPT VISIT LOW MDM [facility] Patient Education [facility] Work Phone: Patient referral [facility] Work Phone: Payers Date Payer Category Payer Medicare 2024 Medicare [id number] 2024 Self-pay Unknown [id number] 2.16.8 [id number] Unknown [id number] 2..8 40.1.525977.3.579.2.462 Unknown [id number] 2..8 40.1.267634.3.579.2.462 Unknown [id number] 2.16.8 40.1.522057.3.579.2.462 Unknown [id number] 2.16.8 40.1.468610.3.579.2.462 Unknown [id number] 2.16.8 40.1.025391.3.579.2.462 Unknown [id number] 2..8 40.1.571494.3.579.2.462 Unknown [id number] 2.16.8 40.1.193208.3.579.2.462 Unknown [id number] 2.16.8 40.1.570334.3.579.2.462 Unknown [id number] 2.16.8 40.1.233242.3.579.2.462 Unknown [id number] 2.16.8 40.1.216607.3.579.2.462 Unknown [id number] 2.16.8 40.1.886325.3.579.2.462 Unknown [id number] 2.16.8 40.1.164913.3.579.2.462 Unknown [id number] 2.16.8 40.1.127455.3.579.2.462 Unknown [id number] 2.16.8 40.1.073855.3.579.2.462 Unknown [id number] 2.16.8 40.1.115109.3.579.2.462 Unknown [id number] 2.16.8 40.1.261886.3.579.2.462 Unknown [id number] 2.16.8 40.1.212265.3.579.2.462 Unknown [id number] 2.16.8 40.1.368359.3.579.2.462 Unknown [id number] 2.16.8 40.1.498829.3.579.2.462 Unknown [id number] 2.16.8 40.1.703688.3.579.2.462 Unknown [id number] 2.16.8 40.1.046223.3.579.2.462 Social History Date Type Detail Facility Start: 11-10-2024 End: 05-08-2025 Tobacco smoking status NHIS Smokes tobacco daily (finding) [facility] Start: 11-10-2024 End: 12-26-2024 Sex Female (finding) [facility] Start: 1955 Sex Assigned At Female [facility] Sex Female [facility] Goals Date Patient Goal Desired Activity /State Functional Status Date Assessment Result Facility 11-12-2024 Functional status [facility] Work Phone: 09-16-2024 Functional status [facility] Work Phone: Mental Status Date Assessment Result Facility 04-24-2025 Cognitive function Voice/Name [facility] Work Phone: 11-12-2024 Cognitive function Voice/Name [facility] Work Phone: 09-16-2024 Cognitive function Voice/Name [facility] Work Phone: Clinical Notes 09-14-2024 to 05-08-2025 Note Date & Type Note Facility 05-08-2025 Discharge summary [facility] 05-08-2025 Radiology Diagnostic study note [facility] Imaging Services [address], [place] [id number] Chest PA and Lateral MR#: [id number] Acct: [id number] Name: CLEMENTINA HOOD Rep #: [id number] : 1955 F 69 From: Maria Alejandra Valentin MD PCP: Dr. Daniele Salazar MD Status: REG E R Study:Chest PA and Lateral Date of Exam: 05/08/25 Exam# [id number] Ordering Dr: Stan Apodaca MD PROCEDURE: CHEST PA AND LATERAL 05/08/2025 REASON FOR EXAM: DYSPNEA, DYSPNEA ON EXERTION, WHEEZING AND CHEST P TECHNIQUE: Procedure Code: RADCXR Modality: DX Procedure: CHEST PA AND LATERAL COMPARISON: 11/10/2024 FINDINGS: Mild pulmonary vascular congestion. No focal consolidation. No pleural effusion or pneumothorax. Cardiac silhouette is within normal limits. No acute fractures. RAD/Chest PA and Lateral IMPRESSION: Mild pulmonary vascular congestion. No focal consolidation. Reading Location[id number] CC: Dr. Daniele Salazar MD; Dr. Madi Apodaca MD ~ Spiritual Counselor: Signed [facility] 05-08-2025 Discharge summary Note Date/Time May 08, 2025 9:23pm [facility] Medical Records Department [address] [place] [address] Emergency Department Summary 05/08/25 MR#: [id number] Acct: [id number] Name: CLEMENTINA HOOD Rep #:[id number] : 1955 69 From: Madi Apodaca MD PCP: Dr. Daniele Salazar MD Status:REG E R Location: ED HPI History of Present Illness Chief Complaint: Shortness of Breath Detail of Chief Complaint: Shortness of breath, history of COPD on oxygen by nasal cannula at 3 L Informant: patient Onset/Context/Timing Onset: Days Context: gradual and onset Timing: Continuous and Waxes and wanes Quality: Positive for Dyspnea on exertion, Orthopnea (Has slept in a chair for the past 2 years) and Wheezing; Negative for PND Current Severity: Mild Maximum Severity: Moderate Worsened by: Exertion and Coughing Relieved by: Nothing Associated Symptoms cough and sore throat; Negative for rhinorrhea, post nasal drip, ear pain, fever, subjective, chills, sweats, clear sputum, white sputum, yellow sputum or green sputum Chest Pain: Positive for Intermittent and Pressure Narrative Narrative: Patient is a 69-year-old woman. She has history of COPD on oxygen by nasal cannula at 3 L. She has had no increase in her oxygen past 1 to 2 months. She has no history of PE or DVT. Denies leg pain, swelling discoloration. She has not been on prednisone in the last 3 to 6 months. She denies fever or chills. She reports rhinorrhea that started yesterday. She denies postnasal drainage orsore throat presently. She does have some discomfort when she coughs. Her cough is essentially nonproductive. Patient denies fever or chills. Patient denies night sweats. Patient denies headache, visual, ocular auditory symptoms. Patient Nuys neck pain or neck stiffness. Patient does complain of retrosternal chest pressure over the past 1 to 2 weeks can vary from minutes to hours. It is not precipitated by any activity or change in position. Nothing makes it better or worse. There is no radiation, diaphoresis or nausea. She does have a history of hypertension. She denies pain rating to her back or ripping tearing pain. She denies leg pain, swelling or discoloration. She denies symptoms of claudication. PE Risk Factors: Positive for - (COPD exacerbation); Negative for Cancer, OCP + Smoking + > 35, Prior DVT or PE, Recent immobilization, Recent surgery or Recenttravel Prior similar symptoms: Yes Recent Illness/Hospitalization: No PFSH PFSH Medical History COPD (chronic obstructive pulmonary disease) Leukocytosis Kidney disease Bipolar disorder Anxiety Depression Osteoporosis Smoker Chest pain Hypertension Migraines Respiratory syncytial virus (RSV) COPD with acute exacerbation COPD (chronic obstructive pulmonary disease) Kidney disease Home Medications ?Medication ?Instructions ?Recorded ?Last Taken ?Type albuterol sulfate 2.5 mg/3 mL 2.5 mg (3 mL) inhalation Q4H PRN 09/12/24 11/10/24 Rx (0.083 %) solution for nebulization #25 vials gabapentin 400 mg capsule 400 mg PO Q6H 09/14/2411/10 History quetiapine 50 mg tablet 50 mg PO QHS 09/14/24 History ropinirole 2 mg tablet 2 mg PO QHS 09/14/24 5 History trazodone 150 mg tablet 150 mg PO QHS 09/14/2411/09 History albuterol sulfate 90 mcg/actuation 2 puff inhalation Q 6H PRN 09/16/24 11/09/24 Rx aerosol inhaler shortness of breath or wheez ing #6.7 grams ipratropium 0.5 mg-albuterol 3 mg 3 ml inhalation Q6H PRN shortness 10/14/24 11/10/24 Rx (2.5 mg base)/3 mL nebulization of breath #90 mL soln lisinopril 20 mg tablet 20 mg PO DAILY 30 days #30 t abs 11/12/24 Unknown Rx buspirone 10 mg tablet 10 mg PO TID 04/24/25 Unknow n History divalproex 250 mg tablet,delayed 250 mg PO BID 5 Unknown History release metronidazole 500 mg tablet 500 mg PO Q6H 04/24/25 Unk nown History azithromycin 250 mg tablet 250 mg PO DAILY 05/08/25 Un known History doxycycline monohydrate 100 mg 100 mg PO BID #10 CAPSU LES 05/08/25 Unknown Rx capsule metoclopramide HCl 10 mg tablet 10 mg PO 4X/DAY Unknown History mirtazapine 7.5 mg tablet 7.5 mg PO QHS 05/08/25 Unkno wn History prednisone 20 mg tablet 60 mg (3 x 20 mg) PO DAILY # 12 05/08/25 Unknown Rx TABLETS zolpidem 10 mg tablet 10 mg PO QHS PRN 05/08/25 Un known History Allergy/AdvReac Type Severity Reaction Status Date / Time No Known Allergies Allergy Verified 05/08/25 18:06 Family History no significant family his Surgical History History of appendectomy Social History household members: family housing: house Smoking Status: Current every day smoker tobacco type: cigarettes alcohol intake: never substance use type: does not use ROS ROS ED Constitutional Constitutional ED: Denies chills, fever(s), sweats or weight loss Eyes Eyes: Denies blurry vision or change in vision ENT ENT ED: Reports rhinorrhea; Denies ear pain or sore throat Cardiovascular Cardiovascular: Reports chest pain and orthopnea; Denies palpitations, paroxysmal nocturnal dyspnea or racing heartbeat Respiratory/Chest Respiratory/Chest: Reports cough, dyspnea, dyspnea on exertion and orthopnea; Denies paroxysmal nocturnal dyspnea or sputum Gastrointestinal Gastrointestinal: Denies abdominal pain, diarrhea, nausea or vomiting Genitourinary Genitourinary ED: Denies dysuria, hematuria or urinary frequency Musculoskeletal Musculoskeletal: Denies arthralgias, back pain, myalgias or neck pain Integumentary Denies abscess or rash Neurologic Neurologic: Denies headache(s) or paresthesias Psychiatric Psychiatric: Denies anxiety or depression Endocrine Endocrinology: Denies cold intolerance or heat intolerance Hematologic/Lymphatic Hematologic/Lymphatic: Denies easy bleeding or easy bruising EXAM Physical Exam Const Vital Signs: 05/08/25 18:06 05/08/25 18:27 05/08/25 18:45 Temperature 98.4 F Temperature Source Oral Pulse Rate 85 88 Respiratory Rate 36 H 21 H Respiratory Effort Short of Breath Blood Pressure 168/84 H Blood Pressure Mean 112 Pulse Ox 98 Oxygen Delivery Method Nasal Cannula Oxygen Flow Rate (L/min) 3 05/08/25 19:03 05/08/25 19:03 05/08/25 20:00 Temperature 98.4 F 98.2 F Temperature Source Oral Oral Pulse Rate 99 82 Respiratory Rate 24 H 18 Respiratory Effort Blood Pressure 156/108 H 156/108 H 154/67 H Blood Pressure Mean 124 124 96 Pulse Ox 99 97 Oxygen Delivery Method Nasal Cannula Nasal Cannula Oxygen Flow Rate (L/min) 3 3 Positive well nourished and well developed Constitutional Narrative: Patient is slightly tachypneic. There is minimal use of accessory muscles. There is no retractions. General Appearance ED: well developed; Negative for NAD or pallor HEENT Reports dry mucous membranes HEENT Narrative: Head is atraumatic and normocephalic. Ears normal. Nares patent. Posterior pharynx is normal Mouth ED: Yes dry mucous membranes Mouth: dry mucous membranes Eyes PERRL and EOMs intact bilaterally General Eye ED: Negative for pale conjunctiva or scleral icterus Neck no lymphadenopathy, supple, no meningeal signs and no JVD Resp No normal respiratory effort and No clear to auscultation bilaterally Resp Narrative: There is expiratory wheezing noted throughout. There is increased expiratory phase. There is diminished air movement bilaterally. Air movement is symmetric. Cardio regular rate, regular rhythm, S1 normal heart sound, S2 normal heart sound and no murmurs GI non-tender, non-distended and no masses Auscultation: normoactive bowel sounds Palpation: soft Extremity normal to inspection General Extremety ED: Negative for edema or tenderness General Extremity: Negative for edema Neuro oriented x3 and CN's II-XII intact bilaterally Sensorium / Orientation: alert Psych mental status grossly normal Skin no wounds General Skin Exam: Negative for jaundice or pallor MDM MDM MDM Narrative Medical decision making narrative: Differential diagnosis would include exacerbation COPD, pneumonia, pneumothorax,cardiac ischemia PE is not a consideration. Dissection is unlikely. Workup included EKG, chest x-ray and appropriate blood work. Lab Data Attestation: I reviewed the patient's lab results. Lab results narrative: Basic metabolic panel is remarkable slight elevation of glucose at 100. First troponin is elevated at 31. Labs: Laboratory Results - last 24 hr 05/08/25 05/08/25 18:15 20:30 WBC 5.0 RBC 4.51 Hgb 12.3 Hct 40.8 MCV 90.5 MCH 27.3 MCHC 30.1 L RDW Std Deviation 47.2 H RDW Coeff of Magno 14.0 Plt Count 216 MPV 10.4 Immature Gran % (Auto) 0.200 Neut % (Auto) 61.1 Lymph % (Auto) 25.8 Worth % (Auto) 9.7 Eos % (Auto) 2.6 Baso % (Auto) 0.6 Absolute Neuts (auto) 3.0 Absolute Lymphs (auto) 1.28 Nucleated RBC % 0 Sodium 141 Potassium 4.5 Chloride 102 Carbon Dioxide 28.9 Anion Gap 10 BUN 17 Creatinine 1.08 Estim Creat Clear Calc 49.83 L Est GFR (MDRD) Non-Af 55 L BUN/Creatinine Ratio 15.4 Glucose 100 H Calcium 9.0 Troponin T High Sens 31 H D Troponin T Hi Sens 2 Hr 29 H 2-hour troponin is 29 with a delta of -2. In light of patient's medical problems suspect this is due to her pulmonary hypertension. Will discharge to home. She was discharged with prescription for doxycycline and prednisone. Radiography Diagnostic Testing: Clinical Impression(s) from Imaging Studies Chest X-Ray 05/08/25 19:10 IMPRESSION: Mild pulmonary vascular congestion. No focal consolidation. Reading Location[id number] E[facility] Initial EKG: Attestation: I personally reviewed and interpreted this EKG as follows: Interpretation: Sinus Rhythm (Rate is 74. The EKG is normal. KS was 154 ms. Cures duration 72 ms. QT duration 372 ms. Jones is normal.) Treatment and Re-Evaluation :: Patient was reassessed at 0 and 2119. She is in no distress. She was informed of her results. She was discharged to home. Discharge Plan Triage Chief Complaint: Shortness of Breath ED Provider: Madi Apodaca Dx/Rx/DC Orders Clinical Impression: Acute exacerbation of chronic obstructive pulmonary disease, Acute bronchospasm, Chronic respiratory failure with hypoxia, on home O2 therapy, Tachypnea, Elevated blood pressure reading with diagnosis of hypertension Instructions: ED COPD Flare Prescriptions: New prednisone 20 mg tablet 60 mg PO DAILY Qty: 12 0RF doxycycline monohydrate 100 mg capsule 100 mg PO BID Qty: 10 0RF No Action albuterol sulfate 2.5 mg /3 mL (0.083 %) solution for nebulization 2.5 mg inhalation Q4H PRN Qty: 25 0RF Rx Instructions: Use q4 hours and PRN for wheezing ipratropium-albuterol 0.5 mg-3 mg(2.5 mg base)/3 mL solution for nebulization 3 ml inhalation Q6H PRN (Reason: shortness of breath) Qty: 90 0RF lisinopril 20 mg tablet 20 mg PO DAILY 30 Days Qty: 30 0RF divalproex 250 mg tablet,delayed release (DR/EC) 250 mg PO BID metronidazole 500 mg tablet 500 mg PO Q6H buspirone 10 mg tablet 10 mg PO TID azithromycin 250 mg tablet 250 mg PO DAILY zolpidem 10 mg tablet 10 mg PO QHS PRN metoclopramide HCl 10 mg tablet 10 mg PO 4X/DAY mirtazapine 7.5 mg tablet 7.5 mg PO QHS gabapentin 400 mg capsule 400 mg PO Q6H ropinirole 2 mg tablet 2 mg PO QHS trazodone 150 mg tablet 150 mg PO QHS quetiapine 50 mg tablet 50 mg PO QHS albuterol sulfate 90 mcg/actuation HFA aerosol inhaler 2 puff inhalation Q6H PRN (Reason: shortness of breath or wheezing) Qty: 6.7 0RF Primary Care Provider: Daniele Salazar Chi Referrals: Daniele Salazar Chi, MD [Primary Care Provider] - 3-5 Days if not improving Print Language: Prydeinig Disposition Disposition: Home, Self Care What to do if you have Problems For any increased pain, shortness of breath, bleeding, nausea or vomiting, chestpain, or any unexpected problems, contact your Primary Care Provider. Call [facility] ([phone]) or report to the closest Emergency Room. Call 911 if necessary. 05/08/252122 <Electronically signed by Madi Apodaca MD> Cosigner Signature (if applicable): CC: Dr. Daniele Salazar MD ~ Signed [facility] Work Phone: 1(734) 649-696909-05-2025 Radiology Diagnostic study note [facility] Imaging Services [address] [place] [address] L/S Spine Min 4 Views MR#: [id number] Acct: [id number] Name: CLEMENTINA HOOD Rep #: [id number] : 1955 F 69 From: Philip Slade MD PCP: Dr. Daniele Salazar MD Status: REG C LI Study:L/S Spine Min 4 Views Date of Exam: 05/04/25 Exam# [id number] Ordering Dr: Daniele Salazar MD PROCEDURE: L/S SPINE MIN 4 VIEWS 05/04/2025 REASON FOR EXAM: COLLAPSED VERTEBRA, NOT ELSEWHERE CLASSIFIED, LUMBAR REGION, INIT TECHNIQUE: Procedure Code: RADSPLS Modality: DX Procedure: L/S SPINE MIN 4 VIEWS COMPARISON: None. FINDINGS: Vertebral body heights: Oblique view show intact pars interarticularis. Negative for fracture. Alignment: No significant curvature. Disc spaces: Mild degenerative disc diseaseof the lower lumbar spine. Facet joints: Moderate bilateral facet joint hypertrophyfrom L3-S1. Soft tissues: Adjacent soft tissues negative. Other: Iliac stents. Bilateral hip arthroplasties. Normal amount of stool in the imaged colon. RAD/L/S Spine Min 4 Views IMPRESSION: Degenerative changes of the lumbar spine. Reading Location: [id number] CC: Dr. Daniele Salazar MD ~ Spiritual Counselor: Signed [facility]08-25-2025 Discharge summary Author [facility] Note Date/Time April 24, 2025 4: 04am [facility] Medical Records Department [address] [place] [id number] Emergency Department Summary 04/24/25 MR#: [id number] Acct: [id number] Name: CLEMENTINA HOOD Rep #:[id number] : 1955 69 From: Will Kaba DO PCP: Dr. 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 She also hashypertension. She states she has been having lower abdominal discomfort for thepast few weeks. She states she has had increased bowel movements with this and states that they are soft but denies diarrhea. She states they are not dark or bloody in color either. She reports that there has been no symptom improvement and therefore she saw her family doctor who had concern for potential diverticulitis and placed her on antibiotics. She states has been taking these for the past few days but symptoms have been persistent and therefore she comes in for evaluation [facility] Medical History (Updated 04/24/25 @ 04:[address] Will Kaba, DO) COPD (chronic obstructive pulmonary disease) Leukocytosis Kidney disease Bipolar disorder Anxiety Depression Osteoporosis Smoker Chest pain Hypertension Migraines Respiratory syncytial virus (RSV) COPD with acute exacerbation COPD (chronic obstructive pulmonary disease) Kidney disease Home Medications ?Medication ?Instructions ?Recorded ?Last Taken ?Type albuterol sulfate 2.5 mg/3 mL 2.5 mg (3 mL) inhalation Q4H PRN 09/12/24 11/10/24 Rx (0.083 %) solution for nebulization #25 vials gabapentin 400 mg capsule 400 mg PO Q6H 09/14/2411/10 History quetiapine 50 mg tablet 50 mg PO QHS 09/14/24 History ropinirole 2 mg tablet 2 mg PO QHS 09/14/24 5 History trazodone 150 mg tablet 150 mg PO QHS 09/14/2411/09 History albuterol sulfate 90 mcg/actuation 2 puff inhalation Q 6H PRN 09/16/24 11/09/24 Rx aerosol inhaler shortness of breath or wheez ing #6.7 grams albuterol sulfate 90 mcg/actuation 1 - 2 puff inhalati on Q4H PRN PRN 10/14/24 11/09/24 Rx aerosol inhaler (Ventolin HFA) Wheezing #1 ea ipratropium 0.5 mg-albuterol 3 mg 3 ml inhalation Q6H PRN shortness 10/14/24 11/10/24 Rx (2.5 mg base)/3 mL nebulization of breath #90 mL soln lisinopril 20 mg tablet 20 mg PO DAILY 30 days #30 t abs 11/12/24 Unknown Rx buspirone 10 mg tablet 10 mg PO TID 04/24/25 Unknow n History ciprofloxacin HCl 750 mg tablet 750 mg PO Q12.TCU 04/01 01/22 Unknown History divalproex 250 mg tablet,delayed 250 mg PO BID 5 Unknown History release metoclopramide HCl 5 mg tablet 5 mg PO TID PRN PRN abd ominal pain 04/24/25 Un known Rx (Reglan) and/or nausea #30 tabs metronidazole 500 mg tablet 500 mg PO Q6H 04/24/25 Unk nown History Allergy/AdvReac Type Severity Reaction Status Date / Time No Known Allergies Allergy Verified 11/10/24 15:07 Surgical History History of appendectomy Social History household members: family housing: house Smoking Status: Current every day smoker tobacco type: cigarettes alcohol intake: never substance use type: does not use ROS ROS ED Constitutional Constitutional ED: Denies chills or fever(s) Eyes Eyes: Denies change in vision ENT ENT ED: Denies sore throat Cardiovascular Cardiovascular: Denies chest pain Respiratory/Chest Respiratory/Chest: Denies cough or dyspnea Gastrointestinal Gastrointestinal: Reports abdominal pain, diarrhea and nausea; Denies vomiting Genitourinary Genitourinary ED: Denies dysuria Musculoskeletal Musculoskeletal: Denies myalgias Integumentary Denies rash Neurologic Neurologic: Denies headache(s) Psychiatric Psychiatric: Reports anxiety Hematologic/Lymphatic Hematologic/Lymphatic: Denies easy bleeding or easy bruising EXAM Physical Exam Const Vital Signs: 04/24/25 00:25 04/24/25 00:30 04/24/25 00:30 Temperature 98 F 98 F Temperature Source Oral Oral Pulse Rate 75 78 Respiratory Rate 16 18 Respiratory Effort Normal Non-Labored Blood Pressure 148/128 H 148/128 H Blood Pressure Mean 134 134 Pulse Ox 100 98 Oxygen Delivery Method Nasal Cannula Nasal Cannula Oxygen Flow Rate (L/min) 4 4 04/24/25 01:00 04/24/25 02:00 04/24/25 03:00 Temperature 98 F 98.1 F 98 F Temperature Source Oral Oral Oral Pulse Rate 65 76 59 L Respiratory Rate 18 18 18 Respiratory Effort Blood Pressure 143/75 H 147/74 H 130/66 H Blood Pressure Mean 97 98 87 Pulse Ox 98 98 97 Oxygen Delivery Method Nasal Cannula Nasal Cannula Nasal Cannula Oxygen Flow Rate (L/min) 2 2 2 04/24/25 03:40 Temperature 98 F Temperature Source Pulse Rate 61 Respiratory Rate 15 Respiratory Effort Blood Pressure 166/79 H Blood Pressure Mean 108 Pulse Ox 100 Oxygen Delivery Method Oxygen Flow Rate (L/min) Positive well nourished, well developed and obese General Appearance ED: well developed; Negative for pallor Nutritional Appearance: obese HEENT Reports dry mucous membranes HEENT Narrative: Normocephalic atraumatic No tongue or lip swelling no oral lesions no airway edema or compromise; no secondary findings in the posterior pharynx to suggest infection Mucous membranes are mildly dry and tacky Mouth ED: Yes dry mucous membranes Mouth: dry mucous membranes Eyes PERRL and EOMs intact bilaterally General Eye ED: Negative for scleral icterus Neck supple Neck Narrative: No nuchal rigidity or meningeal signs noted Resp normal respiratory effort Resp Narrative: Breath sounds are diminished throughout with diffuse expiratory wheeze consistent history of COPD/emphysema but no signs of respiratory distress Cardio regular rate and regular rhythm Rate: other Other Details: Heart is regular rate and rhythm Radial and carotid pulses are equal and symmetric GI non-distended and no masses GI Narrative: Abdomen is soft and nondistended with hypoactive bowel sounds. There is pain onpalpation along the lower abdomen diffusely. No voluntary guarding or rigidity. No pulsatile mass or fluid wave. No peritoneal signs. No organomegaly. Auscultation: hypoactive bowel sounds Palpation: soft Back/Spine no CVA tenderness Extremity normal to inspection Neuro oriented x3, CN's II-XII intact bilaterally and no sensory deficits noted Sensorium / Orientation: alert Motor Exam: strength 5/5 throughout Psych Psych Narrative: Patient is extremely anxious and even has generalized shaking secondary to this Mood & Affect: anxious Skin no rashes or lesions noted General Skin Exam: Negative for jaundice or pallor MDM MDM MDM Narrative Medical decision making narrative: Patient arrived to the ER hypertensive but has a past medical history of this and otherwise with stable vitals. She reported 2 weeks of symptoms that have not been improving despite time and antibiotics per her family doctor. With lower abdominal discomfort there is concern for colitis versus diverticulitis. Patient could have a potential intestinal abscess or atypical presentation for an obstruction. Secondary to this basic labs and a CT scan with IV contrast were obtained. As she is visibly anxious and has a past medical history of thisI feel this is contributing to her symptoms. Therefore on top of morphine for pain control and Zofran for nausea she was treated with IV Ativan. Her labs revealed no signs of acute kidney injury or clinically significant electrolyte changes or elevation to her lipase or liver enzymes going against acute pancreatitis or acute cholecystitis. CT scan revealed no sign of secondary infection such as pancreatitis colitis diverticulitis obstruction or intestinal abscess. It did note gastritis/gastroparesis but the patient's pain is much lower than the location of the stomach. However as this could potentially causesome of her symptoms I will place her on low-dose Reglan which should help control nausea and potential gastroparesis. However patient's vitals have improved with treatment she reports resolution of the abdominal discomfort with treatment and her workup reveals no clinically significant findings. Therefore there is no need for further observation in the hospital and she is otherwise safe for discharge. History & Record Review Discussion w/independent historian: Patient Lab Data Attestation: I reviewed the patient's lab results. Labs: Laboratory Results - last 24 hr 04/24/25 04/24/25 00:35 01:04 WBC 9.9 RBC 4.73 Hgb 13.2 Hct 40.6 MCV 85.8 MCH 27.9 MCHC 32.5 RDW Std Deviation 43.8 RDW Coeff of Magno 14.0 Plt Count 225 MPV 11.2 Immature Gran % (Auto) 0.200 Neut % (Auto) 67.3 Lymph % (Auto) 23.4 Worth % (Auto) 6.6 Eos % (Auto) 2.1 Baso % (Auto) 0.4 Absolute Neuts (auto) 6.6 Absolute Lymphs (auto) 2.31 Nucleated RBC % 0 Sodium 141 Potassium 3.6 Chloride 104 Carbon Dioxide 22.9 Anion Gap 14 BUN 16 Creatinine 1.27 H Estim Creat Clear Calc 41.11 L Est GFR (MDRD) Non-Af 45 L BUN/Creatinine Ratio 12.2 Glucose 107 H Lactic Acid 1.1 Calcium 9.2 Total Bilirubin 0.29 Direct Bilirubin 0.14 AST 26 ALT 10 Alkaline Phosphatase 75 Total Protein 7.0 Albumin 4.2 Globulin 2.8 Lipase 40 Radiography Diagnostic Testing: Clinical Impression(s) from Imaging Studies Abdomen/Pelvis CT 04/24/25 00:51 IMPRESSION: Prior hysterectomy. Atherosclerotic, tortuous ectatic aorta and iliac arteries. Unremarkable iliac endovascular stents. Mild osteopenia. Mild diffuse spondylosis. Calcified atheromatous plaques of the aorta and iliac arteries. Gastroparesis/gastritis. Prior appendectomy. Mild hepatomegaly. Unremarkable bilateral hip metallic prosthesis. Reading Location: [place] [address] Discharge Plan Triage Chief Complaint: Chest Pain ED Provider: Will Kaba Dx/Rx/DC Orders Clinical Impression: Nonspecific abdominal pain, Anxiety, COPD (chronic obstructive pulmonary disease), Bipolar disorder, Hypertension Instructions: Abdominal Pain, Your Body's Response to Anxiety Prescriptions: New metoclopramide HCl [Reglan] 5 mg tablet 5 mg PO TID PRN PRN (Reason: abdominal pain and/or nausea) Qty: 30 0RF No Action albuterol sulfate 2.5 mg /3 mL (0.083 [...] PO DAILY 30 Days Qty: 30 0RF ciprofloxacin HCl 750 mg tablet 750 mg PO Q12.TCU divalproex 250 mg tablet,delayed release (DR/EC) 250 mg PO BID metronidazole 500 mg tablet 500 mg PO Q6H buspirone 10 mg tablet 10 mg PO TID gabapentin 400 mg capsule 400 mg PO Q6H ropinirole 2 mg tablet 2 mg PO QHS trazodone 150 mg tablet 150 mg PO QHS quetiapine 50 mg tablet 50 mg PO QHS albuterol sulfate 90 mcg/actuation HFA aerosol inhaler 2 puff inhalation Q6H PRN (Reason: shortness of breath or wheezing) Qty: 6.7 0RF Primary Care Provider: Daniele Salazar Chi Referrals: Daniele Salazar Chi, MD [Primary Care Provider] - Activity Restrictions/Additional Instructions: Your CT scan did not show any sign of intestinal infection such as an abscess ordiverticulitis or bowel blockage. It did show changes to your stomach concerning for gastritis or gastroparesis but your pain is much lower than the location of the stomach. Please try taking the Reglan as directed to help control symptoms. I do feel part of your pain is related to breakthrough anxiety and therefore you may need further medication other than the BuSpar to help control this. Follow-up with your family doctor for repeat evaluation and return to the ER should you have any further concerns. Print Language: Prydeinig Disposition Disposition: Home, Self Care What to do if you have Problems For any increased pain, shortness of breath, bleeding, nausea or vomiting, chestpain, or any unexpected problems, contact your Primary Care Provider. Call [facility] ([phone]) or report to the closest Emergency Room. Call 911 if necessary. 04/24/25 0404 <Electronically signed by Will Kaba DO> Cosigner Signature (if applicable): CC: Dr. Daniele Salazar MD ~ Signed [facility] Work Phone: [phone] Discharge summary [facility] Medical Records Department [address] [place] [address] Emergency Department Summary 04/24/25 MR#: [id number] Acct: [id number] Name: CLEMENTINA HOOD Rep #:[id number] : 1955 69 From: Will Kaba DO PCP: Dr. 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 She also hashypertension. She states she has been having lower abdominal discomfort for thepast few weeks. She states she has had increased bowel movements with this and states that they are soft but denies diarrhea. She states they are not dark or bloody in color either. She reports that there has been no symptom improvement and therefore she saw herfamily doctor who had concern for potential diverticulitis and placed her on antibiotics. She states has been taking these for the past few days but symptoms have been persistent and therefore she comes in for evaluation [facility] Medical History (Updated 04/24/25 @ 04:[address] Will Kaba, DO) COPD (chronic obstructive pulmonary disease) Leukocytosis Kidney disease Bipolar disorder Anxiety Depression Osteoporosis Smoker Chest pain Hypertension Migraines Respiratory syncytial virus (RSV) COPD with acute exacerbation COPD (chronic obstructive pulmonary disease) Kidney disease Home Medications ?Medication ?Instructions ?Recorded ?Last Taken ?Type albuterol sulfate 2.5 mg/3 mL 2.5 mg (3 mL) inhalation Q4H PRN 09/12/24 11/10/24 Rx (0.083 %) solution for nebulization #25 vials gabapentin 400 mg capsule 400 mg PO Q6H 09/14/2411/10 History quetiapine 50 mg tablet 50 mg PO QHS 09/14/24 History ropinirole 2 mg tablet 2 mg PO QHS 09/14/24 5 History trazodone 150 mg tablet 150 mg PO QHS 09/14/2411/09 History albuterol sulfate 90 mcg/actuation 2 puff inhalation Q 6H PRN 09/16/24 11/09/24 Rx aerosol inhaler shortness of breath or wheez ing #6.7 grams albuterol sulfate 90 mcg/actuation 1 - 2 puff inhalati on Q4H PRN PRN 10/14/24 11/09/24 Rx aerosol inhaler (Ventolin HFA) Wheezing #1 ea ipratropium 0.5 mg-albuterol 3 mg 3 ml inhalation Q6H PRN shortness 10/14/24 11/10/24 Rx (2.5 mg base)/3 mL nebulization of breath #90 mL soln lisinopril 20 mg tablet 20 mg PO DAILY 30 days #30 t abs 11/12/24 Unknown Rx buspirone 10 mg tablet 10 mg PO TID 04/24/25 Unknow n History ciprofloxacin HCl 750 mg tablet 750 mg PO Q12.TCU 04/01 01/22 Unknown History divalproex 250 mg tablet,delayed 250 mg PO BID 5 Unknown History release metoclopramide HCl 5 mg tablet 5 mg PO TID PRN PRN abd ominal pain 04/24/25 Un known Rx (Reglan) and/or nausea #30 tabs metronidazole 500 mg tablet 500 mg PO Q6H 04/24/25 Unk nown History Allergy/AdvReac Type Severity Reaction Status Date / Time No Known Allergies Allergy Verified 11/10/24 15:07 Surgical History History of appendectomy Social History household members: family housing: house Smoking Status: Current every day smoker tobacco type: cigarettes alcohol intake: never substance use type: does not use ROS ROS ED Constitutional Constitutional ED: Denies chills or fever(s) Eyes Eyes: Denies change in vision ENT ENT ED: Denies sore throat Cardiovascular Cardiovascular: Denies chest pain Respiratory/Chest Respiratory/Chest: Denies cough or dyspnea Gastrointestinal Gastrointestinal: Reports abdominal pain, diarrhea and nausea; Denies vomiting Genitourinary Genitourinary ED: Denies dysuria Musculoskeletal Musculoskeletal: Denies myalgias Integumentary Denies rash Neurologic Neurologic: Denies headache(s) Psychiatric Psychiatric: Reports anxiety Hematologic/Lymphatic Hematologic/Lymphatic: Denies easy bleeding or easy bruising EXAM Physical Exam Const Vital Signs: 04/24/25 00:25 04/24/25 00:30 04/24/25 00:30 Temperature 98 F 98 F Temperature Source Oral Oral Pulse Rate 75 78 Respiratory Rate 16 18 Respiratory Effort Normal Non-Labored Blood Pressure 148/128 H 148/128 H Blood Pressure Mean 134 134 Pulse Ox 100 98 Oxygen Delivery Method Nasal Cannula Nasal Cannula Oxygen Flow Rate (L/min) 4 4 04/24/25 01:00 04/24/25 02:00 04/24/25 03:00 Temperature 98 F 98.1 F 98 F Temperature Source Oral Oral Oral Pulse Rate 65 76 59 L Respiratory Rate 18 18 18 Respiratory Effort Blood Pressure 143/75 H 147/74 H 130/66 H Blood Pressure Mean 97 98 87 Pulse Ox 98 98 97 Oxygen Delivery Method Nasal Cannula Nasal Cannula Nasal Cannula Oxygen Flow Rate (L/min) 2 2 2 04/24/25 03:40 Temperature 98 F Temperature Source Pulse Rate 61 Respiratory Rate 15 Respiratory Effort Blood Pressure 166/79 H Blood Pressure Mean 108 Pulse Ox 100 Oxygen Delivery Method Oxygen Flow Rate (L/min) Positive well nourished, well developed and obese General Appearance ED: well developed; Negative for pallor Nutritional Appearance: obese HEENT Reports dry mucous membranes HEENT Narrative: Normocephalic atraumatic No tongue or lip swelling no oral lesions no airway edema or compromise; no secondary findings in the posterior pharynx to suggest infection Mucous membranes are mildly dry and tacky Mouth ED: Yes dry mucous membranes Mouth: dry mucous membranes Eyes PERRL and EOMs intact bilaterally General Eye ED: Negative for scleral icterus Neck supple Neck Narrative: No nuchal rigidity or meningeal signs noted Resp normal respiratory effort Resp Narrative: Breath sounds are diminished throughout with diffuse expiratory wheeze consistent history of COPD/emphysema but no signs of respiratory distress Cardio regular rate and regular rhythm Rate: other Other Details: Heart is regular rate and rhythm Radial and carotid pulses are equal and symmetric GI non-distended and no masses GI Narrative: Abdomen is soft and nondistended with hypoactive bowel sounds. There is pain onpalpation along the lower abdomen diffusely. No voluntary guarding or rigidity. No pulsatile mass or fluid wave. No peritoneal signs. No organomegaly. Auscultation: hypoactive bowel sounds Palpation: soft Back/Spine no CVA tenderness Extremity normal to inspection Neuro oriented x3, CN's II-XII intact bilaterally and no sensory deficits noted Sensorium / Orientation: alert Motor Exam: strength 5/5 throughout Psych Psych Narrative: Patient is extremely anxious and even has generalized shaking secondary to this Mood & Affect: anxious Skin no rashes or lesions noted General Skin Exam: Negative for jaundice or pallor MDM MDM MDM Narrative Medical decision making narrative: Patient arrived to the ER hypertensive but has a past medical history of this and otherwise with stable vitals. She reported 2 weeks of symptoms that have not been improving despite time and antibiotics per her family doctor. With lower abdominal discomfort there is concern for colitis versus diverticulitis. Patient could have a potential intestinal abscess or atypical presentation for an obstruction. Secondary to this basic labs and a CT scan with IV contrast were obtained. As she is visibly anxious and has a past medical history of thisI feel this is contributing to her symptoms. Therefore on top of morphine for pain control and Zofran for nausea she was treated with IV Ativan. Her labs revealed no signs of acute kidney injury or clinically significant electrolyte changes or elevation to her lipase or liver enzymes going against acute pancreatitis or acute cholecystitis. CT scan revealed no sign of secondary infection such as pancreatitis colitis diverticulitis obstruction or intestinal abscess. It did note gastritis/gastroparesis but the patient's pain is much lower than the locat ion of the stomach. However as this could potentially causesome of her symptoms I will place her onlow-dose Reglan which should help control nausea and potential gastroparesis. However patient's vitals have improved with treatment she reports resolution of the abdominal discomfort with treatment and her workup reveals no clinically significant findings. Therefore there is no need for further observation in the hospital and she is otherwise safe for discharge. History & Record Review Discussion w/independent historian: Patient Lab Data Attestation: I reviewed the patient's lab results. Labs: Laboratory Results - last 24 hr 04/24/25 04/24/25 00:35 01:04 WBC 9.9 RBC 4.73 Hgb 13.2 Hct 40.6 MCV 85.8 MCH 27.9 MCHC 32.5 RDW Std Deviation 43.8 RDW Coeff of Magno 14.0 Plt Count 225 MPV 11.2 Immature Gran % (Auto) 0.200 Neut % (Auto) 67.3 Lymph % (Auto) 23.4 Worth % (Auto) 6.6 Eos % (Auto) 2.1 Baso % (Auto) 0.4 Absolute Neuts (auto) 6.6 Absolute Lymphs (auto) 2.31 Nucleated RBC % 0 Sodium 141 Potassium 3.6 Chloride 104 Carbon Dioxide 22.9 Anion Gap 14 BUN 16 Creatinine 1.27 H Estim Creat Clear Calc 41.11 L Est GFR (MDRD) Non-Af 45 L BUN/Creatinine Ratio 12.2 Glucose 107 H Lactic Acid 1.1 Calcium 9.2 Total Bilirubin 0.29 Direct Bilirubin 0.14 AST 26 ALT 10 Alkaline Phosphatase 75 Total Protein 7.0 Albumin 4.2 Globulin 2.8 Lipase 40 Radiography Diagnostic Testing: Clinical Impression(s) from Imaging Studies Abdomen/Pelvis CT 04/24/25 00:51 IMPRESSION: Prior hysterectomy. Atherosclerotic, tortuous ectatic aorta and iliac arteries. Unremarkable iliac endovascular stents. Mild osteopenia. Mild diffuse spondylosis. Calcified atheromatous plaques of the aorta and iliac arteries. Gastroparesis/gastritis. Prior appendectomy. Mild hepatomegaly. Unremarkable bilateral hip metallic prosthesis. Reading Location: [place] [address] Discharge Plan Triage Chief Complaint: Chest Pain ED Provider: Will Kaba Dx/Rx/DC Orders Clinical Impression: Nonspecific abdominal pain, Anxiety, COPD (chronic obstructive pulmonary disease), Bipolar disorder, Hypertension Instructions: Abdominal Pain, Your Body's Response to Anxiety Prescriptions: New metoclopramide HCl [Reglan] 5 mg tablet 5 mg PO TID PRN PRN (Reason: abdominal pain and/or nausea) Qty: 30 0RF No Action albuterol sulfate 2.5 mg /3 mL (0.083 [...] PO DAILY 30 Days Qty: 30 0RF ciprofloxacin HCl 750 mg tablet 750 mg PO Q12.TCU divalproex 250 mg tablet,delayed release (DR/EC) 250 mg PO BID metronidazole 500 mg tablet 500 mg PO Q6H buspirone 10 mg tablet 10 mg PO TID gabapentin 400 mg capsule 400 mg PO Q6H ropinirole 2 mg tablet 2 mg PO QHS trazodone 150 mg tablet 150 mg PO QHS quetiapine 50 mg tablet 50 mg PO QHS albuterol sulfate 90 mcg/actuation HFA aerosol inhaler 2 puff inhalation Q6H PRN (Reason: shortness of breath or wheezing) Qty: 6.7 0RF Primary Care Provider: Daniele Salazar Chi Referrals: Daniele Salazar Chi, MD [Primary Care Provider] - Activity Restrictions/Additional Instructions: Your CT scan did not show any sign of intestinal infection such as an abscess ordiverticulitis or bowel blockage. It did show changes to your stomach concerning for gastritis or gastroparesis but your pain is much lower than the location of the stomach. Please try taking the Reglan as directed to help control symptoms. I do feel part of your pain is related to breakthrough anxiety and therefore you may need further medication other than the BuSpar to help control this. Follow-up with your family doctor for repeat evaluation and return to the ER should you have any further concerns. Print Language: Prydeinig Disposition Disposition: Home, Self Care What to do if you have Problems For any increased pain, shortness of breath, bleeding, nausea or vomiting, chestpain, or any unexpected problems, contact your Primary Care Provider. Call [facility] ([phone]) or report tothe closest Emergency Room. Call 911 if necessary. 04/24/25 0404 Cosigner Signature (if applicable): CC: Dr. Daniele Salazar MD ~ Signed [facility]08-25-2025 Radiology Diagnostic study note [facility] Imaging Services [address] [place] [address] Abdomen/Pelvis W IV Cont ONLY MR#: [id number] Acct: [id number] Name: CLEMENTINA HOOD Rep #: [id number] : 1955 F 69 From: Rivka Sherman MD PCP: Dr. Daniele Salazar MD Status: REG E R Study:Abdomen/Pelvis W IV Cont ONLY Date of E xam: 04/24/25 Exam# [id number] Ordering Dr: Sherron Kaba DO PROCEDURE: ABDOMEN/PELVIS W IV CONT ONLY 04/24/2025 REASON FOR EXAM: ABD PAIN TECHNIQUE: ABDOMEN/PELVIS W IV CONT ONLY Coronal and Sagittal reconstruction series were provided. CONTRAST: Isovue-350 VOLUME: 100 mL One or more dose reduction techniques were used (e.g., Automated exposure control, adjustment of the mA and/or kV according to patient size, use of iterative reconstruction technique. RADIATION DOSE SUMMARY: CTDlvol: 22.73 mGy DLP: 1119 mGycm COMPARISON: None. FINDINGS: Prior hysterectomy. Atherosclerotic, tortuous ectatic aorta and iliac arteries. Unremarkable iliac endovascular stents. Mild osteopenia. Mild diffuse spondylosis. Calcified atheromatous plaques of the aorta and iliac arteries. Gastroparesis/gastritis. Prior appendectomy. Mild hepatomegaly. Unremarkable bilateral hip metallic prosthesis. The visualized lung bases are unremarkable. Normal liver. Normal gallbladder and extrahepatic biliary system. Normal spleen. Normal pancreas. Normal bilateral adrenal glands. Normal size of the right kidney. There is no right renal mass. There are no right renal calculi. There is no right hydronephrosis. Normal visualized right ureter. Normal size of the left kidney. There is no left renal mass. There are no leftrenal calculi. There is no left hydronephrosis. Normal visualized left ureter. Normal small intestine. There is no demonstrated peritoneal fluid. Normal inferior vena cava. Normal retroperitoneum. Normal urinary bladder. There is no pelvic mass lesion or lymphadenopathy. There is no pelvic fluid. CT/Abdomen/Pelvis W IV Cont ONLY IMPRESSION: Prior hysterectomy. Atherosclerotic, tortuous ectatic aorta and iliac arteries. Unremarkable iliac endovascular stents. Mild osteopenia. Mild diffuse spondylosis. Calcified atheromatous plaques of the aorta and iliac arteries. Gastroparesis/gastritis. Prior appendectomy. Mild hepatomegaly. Unremarkable bilateral hip metallic prosthesis. Reading Location: [place] [address] CC: Dr. Daniele Salazar MD; DO Isma Willard Spiritual Counselor: Signed [facility]03-15-2025 Discharge summary [facility] Medical Records Department [address] [place] [address] Instructions for Home/Discharge Instructions 11/12/24 1341 MR#: [id number] Acct: [id number] Name: CLEMENTINA HOOD Rep #:[id number] : 1955 69 From: Chana Staley MD [...] can be placed): Home, Self Care 11/12/24 1341Pmichelle Staley MD CC: Dr. Gaurang Donahue MD; No Primary Care Physician ~ Signed [facility]03-15-2025 Discharge summary Author Chana Staley [facility] Note Date/Time November 12, 2024 1:4 4pm [facility] Medical Records Department [address] 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 Chana Staley MD; No Primary Care Physician~ Signed [facility] Work Phone: 1(980) 555-750603-15-2025 Discharge summary Author Chana Staley [facility] Note Date/Time November 12, 2024 1:3 4pm [facility] Medical Records Department [address] [place] [address] Instructions for Home/Discharge Instructions 11/12/24 1152 MR#: [id number] Acct: [id number] Name: CLEMENTINA HOOD Rep #:[id number] : 1955 69 From: Chana Staley MD [...] MD; No Primary Care Physician ~ Signed [facility] Work Phone: [phone]) 880-563003-15-2025 Discharge summary [facility] Medical Records Department [address] [place] [address] Discharge Summary 11/12/24 1214 MR#: [id number] Acct: [id number] Name: HOODCLEMENTINA DANETTE Rep #:[id number] : 1955 69 From: Chana Staley MD PCP: Care Physician,No Primary Status :ADM NADEGE Location: [place] [address] Providers Date of Admission: 11/10/24 Date of [...] #Hypertension 69-year-old female history as above presented [facility] ED 11/10/2024 with worsening shortness of breath [...] 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 Chana Staley MD; No Primary Care Physician~ Signed [facility]03-15-2025 Discharge summary [facility] Medical Records Department [address] [place] [address] Instructions for Home/Discharge Instructions 11/12/24 1152 MR#: [id number] Acct: [id number] Name: CLEMENTINA HOOD Rep #:[id number] : 1955 69 From: Chana Staley MD [...] MD; No Primary Care Physician ~ Signed [facility]03-15-2025 [facility]03-14-2025 Progress note Author Chana Staley [facility] Note Date/Time November 11, 2024 1:4 9pm [facility] Medical Records Department [address] [place] [address] Progress Note - Hospitalist 11/11/24 0722 MR#: [id number] Acct: [id number] Name: CLEMENTINA HOOD Rep #:[id number] : 1955 69 From: Chana Staley MD PCP: Care Physician,No Primary Status :ADM NADEGE Location: [place] [address] Reason for Visit Reason for Visit: Diagnoses [...] % (Auto) 58.0, Lymph % (Auto) 29.1, Worth % (Auto) 9.0, Eos % (Auto) 3.3, [...] (Auto) 71.8 H, Lymph % (Auto) 22.8, Worth % (Auto) 4.6, Eos % (Auto) 0.0, [...] IMPRESSION: Cardiomegaly with mild congestion. Reading [facility] Physical Exam Narrative General: Alert, oriented, no [...] Staley MD Charges/Coding Visit Charges Inpatient E&M: 76582 Subs Hosp L2 11/11/24 1349 <Electronically signed by Chana Staley MD> Cosigner Signature (if applicable): CC: ~ Signed [facility] Work Phone: 1(730) 219-324803-14-2025 Progress note [facility] Medical Records Department [address] [place] [address] Progress Note - Hospitalist 11/11/24 0722 MR#: [id number] Acct: [id number] Name: CLEMENTINA HOOD Rep #:[id number] : 1955 69 From: Chana Staley MD PCP: Care Physician,No Primary Status :ADM NADEGE Location: [place] NC248-0 Reason for Visit Reason for Visit: Diagnoses [...] % (Auto) 58.0, Lymph % (Auto) 29.1, Worth % (Auto) 9.0, Eos % (Auto) 3.3, [...] (Auto) 71.8 H, Lymph % (Auto) 22.8, Worth % (Auto) 4.6, Eos % (Auto) 0.0, [...] IMPRESSION: Cardiomegaly with mild congestion. Reading [facility] Physical Exam Narrative General: Alert, oriented, no [...] Staley MD Charges/Coding Visit Charges Inpatient E&M: 77228 Subs Hosp L2 11/11/24 1349 Cosigner Signature (if applicable): CC: ~ Signed [facility]03-14-2025 Discharge summary Author Bennie Dorsey [facility] Note Date/Time November 10, 2024 10: 07pm [facility] Medical Records Department [address] [place] [address] Emergency Department Summary 11/10/24 MR#: [id number] Acct: [id number] Name: CLEMENTINA HOOD Rep #:[id number] : 1955 69 From: Bennei Aranda PCP: Care Physician,No Primary Status :ADM NADEGE Location: [place] WM892-6 HPI History of Present Illness Chief Complaint: [...] reviewed, Vital signs reviewed Constitutional: please see [facility] HENT: MMM Eyes: Pupils equal round and [...] fraction 75% Factors affecting care: As per [facility] Social determinants of health history mental health disorder History obtained from others: EMS Consults: internal medicine (Dr. Donahue) [facility] Narrative: The patient was initially hemodynamically [...] to floor This note was generated with [employer] dictation software. It may contain incorrectwords, spelling, [...] % (Auto) 58.0 Lymph % (Auto) 29.1 Worth % (Auto) 9.0 Eos % (Auto) 3.3 [...] IMPRESSION: Cardiomegaly with mild congestion. Reading [facility] Discharge Plan Disposition Disposition: Acute Care Hospital [facility] Discharge Date/Time: 11/10/24 20:43 What to do if you have Problems For any increased pain, shortness of breath, bleeding, nausea or vomiting, chestpain, or any unexpected problems, contact your Primary Care Provider. Call [facility] ([phone]) or report to the closest Emergency Room. Call 911 if necessary. 11/10/242206 <Electronically signed by Bennie Dorsey DO> Cosigner Signature (if applicable): CC: No Primary Care Physician ~ Signed [facility] Work Phone: 1(590) 155-934803-13-2025 Discharge summary [facility] Medical Records Department [address] [place] [address] Emergency Department Summary 11/10/24 MR#: [id number] Acct: [id number] Name: CLEMENTINA HOOD Rep #:[id number] : 1955 69 From: Bennie Aranda PCP: Care Physician,No Primary Status :ADM NADEGE Location: [place] [address] HPI History of Present Illness Chief Complaint: Shortness of Breath [facility] Medical History Kidney disease Bipolar disorder Anxiety [...] fraction 75% Factors affecting care: As per [facility] Social determinants of health history mental health disorder History obtained from others: EMS Consults: internal medicine (Dr. Donahue) [facility] Narrative: The patient was initially hemodynamically stable [...] to floor This note was generated with [employer] dictation software. It may contain incorrectwords, spelling, [...] % (Auto) 58.0 Lymph % (Auto) 29.1 Worth % (Auto) 9.0 Eos % (Auto) 3.3 [...] IMPRESSION: Cardiomegaly with mild congestion. Reading [facility] Discharge Plan Disposition Disposition: Acute Care Hospital [facility] Discharge Date/Time: 11/10/24 20:43 What to do if you have Problems For any increased pain, shortness of breath, bleeding, nausea or vomiting, chestpain, or any unexpected problems, contact your Primary Care Provider. Call [facility] ([phone]) or report tothe closest Emergency Room. Call 911 if necessary. 11/10/242206 Cosigner Signature (if applicable): CC: No Primary Care Physician ~ Signed [facility]03-13-2025 History and physical note Author Gaurang Donahue [facility] Note Date/Time November 10, 2024 7:1 2pm [facility] Medical Records Department [address] [place] [address] H&P Exam - Hospitalist 11/10/24 190 MR#: [id number] Acct: [id number] Name: CLEMENTINA HOOD Rep #:[id number] : 1955 69 From: Gaurang Donahue MD [...] % (Auto) 58.0, Lymph % (Auto) 29.1, Worth % (Auto) 9.0, Eos % (Auto) 3.3, [...] IMPRESSION: Cardiomegaly with mild congestion. Reading [facility] Assessment & Plan Assessment/Plan (1) Pneumonia: [...] target 92 2-94% -Bronchopulmonary hygiene -Admit to [facility] for observation -If there is [...] Donahue MD; No Primary Care Physician~ Signed [facility] Work Phone: 1(462) 119-428603-13-2025 History and physical note [facility] Medical Records Department [address] [place] [address] H&P Exam - Hospitalist 11/10/24 1901 MR#: [id number] Acct: [id number] Name: CLEMENTINA HOOD Rep #:[id number] : 1955 69 From: Gaurang Donahue MD [...] % (Auto) 58.0, Lymph % (Auto) 29.1, Worth % (Auto) 9.0, Eos % (Auto) 3.3, [...] IMPRESSION: Cardiomegaly with mild congestion. Reading [facility] Assessment & Plan Assessment/Plan (1) Pneumonia: [...] target 92 2-94% -Bronchopulmonary hygiene -Admit to [facility] for observation -If there is [...] Donahue MD; No Primary Care Physician~ Signed [facility]03-13-2025 Radiology Diagnostic study note [facility] Imaging Services [address] [place], [place] [address] Chest 1 View (Portable) MR#: [id number] Acct: [id number] Name: CLEMENTINA HOOD Rep #: [id number] : 1955 F 69 From: Leslie Gilbert MD PCP: Care Physician,No Primary Status: REG ER Study:Chest 1 View (Portable) Date of Exam: 11/10/24 Exam# [id number] Ordering Dr: Gabrielle Dorsey DO EXAM: XR Chest, 1 View CLINICAL INDICATION: SHORTNESS OF BREATH TECHNIQUE: Frontal view of the chest. COMPARISON: No relevant prior studies available. FINDINGS: LUNGS AND PLEURAL SPACES: See below. HEART: Cardiomegaly with mild congestion. MEDIASTINUM: Unremarkable. Normal mediastinal contour. BONES/JOINTS: Unremarkable. No acute fracture. RAD/Chest 1 View (Portable) IMPRESSION: Cardiomegaly with mild congestion. Reading Location: [facility] CC: Dr. Bennie Dorsey, DO; No Primary Care Physician ~ Spiritual Counselor: Signed [facility]01-17-2025 [facility]01-15-2025 Evaluation note* Diagnosis Onset Date Resolution Status Admit Date COPD with acute exacerbation inactiv e September 14, 2024 4:43pm Edema, peripheral inactive September 14, 2024 4:43pm Hypoxia inactive September 14, 2024 4:43pm Leukocytosis inactive August 4:43pm Respiratory syncytial virus (RSV) inactive September 14 4:43pm Pneumonia acute November 10 6:56pm [facility] Work Phone: 1(240) 704-643401-15-2025 Evaluation note* Diagnosis Onset Date Resolution Status Admit Date COPD with acute exacerbation inactiv e September 14, 2024 4:43pm Edema, peripheral inactive September 14, 2024 4:43pm Hypoxia inactive September 14, 2024 4:43pm Leukocytosis inactive August 4:43pm Respiratory syncytial virus (RSV) inactive September 14 4:43pm Pneumonia acute November 10 6:56pm COPD exacerbation inactive October 292024 6:56pm [facility] Work Phone: Discharge summary Author Chana Staley [facility] Note Date/Time November 12, 2024 3:1 3pm [facility] Medical Records Department [address] [place] [address] Instructions for Home/Discharge Instructions 11/12/24 1341 MR#: [id number] Acct: [id number] Name: CLEMENTINA HOOD Rep #:[id number] : 1955 69 From: Chana Staley MD [...] MD; No Primary Care Physician ~ Signed [facility] Work Phone: Evaluation noteNo assessment information available [facility] Work Phone: History and physical note Author Gaurang Donahue [facility] Note Date/Time November 10, 2024 7:1 2pm [facility] Medical Records Department [address] [place] [address] H&P Exam - Hospitalist 11/10/24 1901 MR#: [id number] Acct: [id number] Name: CLEMENTINA HOOD Rep #:[id number] : 1955 69 From: Gaurang Donahue MD [...] 1.2 high-sensitivity troponin 19 NT proBNP 392 [facility] Medical History Kidney disease Bipolar disorder Anxiety [...] % (Auto) 58.0, Lymph % (Auto) 29.1, Worth % (Auto) 9.0, Eos % (Auto) 3.3, [...] IMPRESSION: Cardiomegaly with mild congestion. Reading [facility] Assessment & Plan Assessment/Plan (1) Pneumonia: [...] target 92 2-94% -Bronchopulmonary hygiene -Admit to [facility] for observation -If there is [...] Donahue MD; No Primary Care Physician~ Signed [facility] Work Phone: Hospital Discharge instructionsAdditional Instructions Your CT scan did not show any sign of intestinal infection such as an abscess or diverticulitis or bowel blockage. It did show changes to your stomach concerning for gastritis or gastroparesis but your pain is much lower than the location of the stomach. Please try taking the Reglan as directed to help control symptoms. I do feel part of your pain is related to breakthrough anxiety and therefore you may need further medication other than the BuSpar to help control this. Follow-up with your family doctor for repeat evaluation and return to the ER should you have any further concerns.[facility] Work Phone: Reason for referral (narrative)No reason for referral information availableWUpper [facility] Work Phone: Chief Complaint and Reason for [...] 2024 4 :43pm Respiratory syncytial virus (RSV) Gabriela y 2024 4:43pm Pneumonia November 10, 2024 6:5 [...] Date LABS January 02, 2025 10:47a m Chief Complaint Admit Date LABS January 02, 2025 10:47a m chest pain April 24, 2025 12 :23am Chief Complaint Admit Date chest pain April 24, 2025 12 :23am Collapsed vertebra, not elsewhere classi fied, lumb May 04, 2025 11:04am sob May 08, 2025 6:05pm Advance Directives No Advanced Directives Records Found Advance Directive Response Recorded Date/ Time Living Will No September 12 4:01pm Power of [employer] Analyst No September 12, 2024 4:01pm Living Will No October 13 11:57pm Power of [employer] Analyst No October 13, 2024 11:57pm Living Will No November 10, 2024 3:09pm Power of [employer] Analyst No November 10 3:09pm Living Will No September 14 7:04pm Power of [employer] Network Analyst No September 14, 2024 7:04pm Advance Directive Response Recorded Date/ Time Living Will No September 12 4:01pm Power of [employer] Network Analyst No September 12, 2024 4:01pm Living Will No October 13, 025 11:57pm Power of [employer] Analyst No October 13, 2024 11:57pm Living Will No November 10, 2024 8:57pm Power of [employer] Network Analyst No November 10 8:57pm Living Will No September 14 7:04pm Power of [employer] Network Analyst No September 14, 2024 7:04pm Advance Directive Response Recorded Date/ Time Living Will No September 12 4:01pm Do you have a Healthcare Power of [employer] Network Analyst? No September 12, 2024 4:01pm Living Will No October 13 11:57pm Do you have a Healthcare Power of [employer] Network Analyst? No October 13, 2024 11:57pm Living Will No November 10, 2024 8:57pm Do you have a Healthcare Power of [employer] Network Analyst? No November 10, 2024 8:57pm Living Will No September 14 7:04pm Do you have a Healthcare Power of [employer] Network Analyst? No September 14, 2024 7:04pm Advance Directive Response Recorded Date/ Time Do you have a Healthcare Power of [employer] Network Analyst? No April 24, 2025 12:30am Advance Directive Response Recorded Date/ Time Do you have a Healthcare Power of [employer] Network Analyst? No April 24, 2025 12:30am Do you have a Healthcare Power of [employer] Analyst? No May 08, 2025 6:27pm Summary Purpose Family History No Family History Records Found Additional Source Comments Care Teams (unrecognized sec tion and content) Team Status: Active Member Role Status Dates No Primary Care Physician Primary Care Provider Active Team Status: Inactive Member Role Status Dates Dr. Wilver Gilbert DO Attending Provider Active Start : September [...] 13, 2024 End: October 14, 2024 Pako iFnk MD Emergency Provider Active Star t: October [...] Active St art: November 11, 2024 Dr. hCana Staley MD Attending Provider Active Start: November [...] Active St art: November 12, 2024 Dr. hCana Staley MD Attending Provider Active Start: November [...] March 10, 2025 End: March 10, 2025 Team Status: Inactive Member Role/Relationship Status [...] March 10, 2025 End: March 10, 2025 Team Status: Active Member Role/Relationship Status Dates Dr. Daniele Salazar MD Primary Care Provider Active Start: April 20, 2025 Dr. Daniele Salazar MD Attending Provider Active Start: April 20, 2025 Team Status: Inactive Member Role/Relationship Status Dates Dr. Daniele Salazar MD Primary Care Provider Active Start: April 24, 2025 End: April 24, 2025 Dr. Will Kaba DO Emergency Provider Active Start: April 24, 2025 End: April 24, 2025 Team Status: Inactive Member Role/Relationship Status Dates Dr. Daniele Salazar MD Primary Care Provider Active Start: April 20, 2025 End: April 20, 2025 Dr. Daniele Salazar MD Attending Provider Active Start: April 20, 2025 End: April 20, 2025 Team Status: Inactive Member Role/Relationship Status Dates Dr. Daniele Salazar MD Primary Care Provider Active Start: April 24, 2025 End: April 24, 2025 Dr. Will Kaba DO Attending Provider Active Start: April 24, 2025 End: April 24, 2025 Dr. Will Kaba DO Emergency Provider Active Start: April 24, 2025 End: April 24, 2025 Team Status: Inactive Member Role/Relationship Status Dates Dr. Daniele Salazar MD Primary Care Provider Active Start: March 10, 2025 End: March 10, 2025 Dr. Daniele Salazar MD Attending Provider Active Start: March 10, 2025 End: March 10, 2025 Team Status: Inactive Member Role/Relationship Status Dates Dr. Daniele Salazar MD Primary Care Provider Active Start: April 20, 2025 End: April 20, 2025 Dr. Daniele Salazar MD Attending Provider Active Start: April 20, 2025 End: April 20, 2025 Team Status: Inactive Member Role/Relationship Status Dates Dr. Daniele Salazar MD Primary Care Provider Active Start: April 24, 2025 End: April 24, 2025 Dr. Will Kaba DO Attending Provider Active Start: April 24, 2025 End: April 24, 2025 Dr. Will Kaba DO Emergency Provider Active Start: April 24, 2025 End: April 24, 2025 Team Status: Active Member Role/Relationship Status Dates Dr. Daniele Salazar MD Primary Care Provider Active Start: May 04, 2025 Dr. Daniele Salazar MD Attending Provider Active Start: May 04, 2025 Dr. Daniele Salazar MD Referring Provider Active Start: May 04, 2025 Team Status: Inactive Member Role/Relationship Status Dates Dr. Daniele Salazar MD Primary Care Provider Active Start: May 08, 2025 End: May 08, 2025 Dr. Madi Apodaca MD Emergency Provider Active Sta rt: May 08, 2025 End: May 08, 2025 Team Status: Active Member Role/Relationship Status Dates Dr. Daniele Salazar MD Primary care physician Active Team Status: Inactive Member Role/Relationship Status Dates Dr. Daniele Salazar MD Primary care physician Active Start: March 10, 2025 End: March 10, 2025 Dr. Daniele Salazar MD Attending physician Active Start: March 10, 2025 End: March 10, 2025 Team Status: Inactive Member Role/Relationship Status Dates Dr. Daniele Salazar MD Primary care physician Active Start: April 20, 2025 End: April 20, 2025 Dr. Daniele Salazar MD Attending physician Active Start: April 20, 2025 End: April 20, 2025 Team Status: Inactive Member Role/Relationship Status Dates Dr. Daniele Salazar MD Primary care physician Active Start: April 24, 2025 End: April 24, 2025 Dr. Will Kaba DO Attending physician Active Start: April 24, 2025 End: April 24, 2025 Dr. Will Kaba DO Emergency Department Physician A ctive Start: April 24, 2025 End: April 24, 2025 Team Status: Inactive Member Role/Relationship Status Dates Dr. Daniele Salazar MD Primary care physician Active Start: May 04, 2025 End: May 04, 2025 Dr. Daniele Salazar MD Attending physician Active Start: May 04, 2025 End: May 04, 2025 Dr. Daniele Salazar MD Referring Provider Active Start: May 04, 2025 End: May 04, 2025 Team Status: Inactive Member Role/Relationship Status Dates Dr. Daniele Salazar MD Primary care physician Active Start: May 08, 2025 End: May 08, 2025 Dr. Madi Apodaca MD Attending physician Active St art: May 08, 2025 End: May 08, 2025 Dr. Madi Apodaca MD Emergency Department Physician Active Start: May 08, 2025 End: May 08, 2025 Goals (unrecognized section and content) Goals may be documented in a n alternate sectionGoals may be documented in an alternate sectionGoals may be documented in an alternate sectionGoals may be documented in an alternate sectionGoals may be documented in an alternate section INFORMATION SOURCE (unrecogn ized section and content) DATE CREATED AUTHOR 07/12/2025 [facility] FOR RECORDS PERTAINING TO PATIENTS WHO ARE [...] BE BASED ON THE PRIMARY CLINICAL RECORDS. [employer] [facility]. provides no warranty or guarantee of the accuracy or completeness of information in this document.
--- NOTE | 2025-07-15 09:02 | MRI_ITS ---
PROCEDURE: SPINE LUMBAR (ROUTINE) 07/15/2025 REASON FOR EXAM: RADICULOPATHY LUMBAR REGION TECHNIQUE: Procedure Code: MRISPL Modality: MR Procedure: SPINE LUMBAR (ROUTINE) COMPARISON: Lumbar spine x-ray 05/04/2025. FINDINGS: Vertebrae: Chronic compression deformity at T11, T12 and the upper endplate of L1. Alignment: Retrolisthesis L2 on L3 by 2 mm. Conus Medullaris: Unremarkable. L1-2: Small disc bulge. Facet joint arthropathy and ligamentum flavum hypertrophy. No significant foraminal or canal stenosis. L2-3: Disc desiccation. Disc bulge. Facet joint arthropathy. Ligamentum flavum hypertrophy. Moderate bilateral foramina stenosis. Moderate canal stenosis. L3-4: No significant foraminal or canal stenosis. L4-5: Small disc bulge. Facet joint arthropathy with ligamentum flavum hypertrophy. Mild inferior bilateral foramina stenosis. No canal stenosis. L5-S1: Small disc bulge. No significant foraminal or canal stenosis. Sacrum: Unremarkable. MRI/Spine Lumbar (Routine) IMPRESSION: Degenerate changes, predominantly for moderate canal stenosis and moderate bila teral foramina stenosis at L2-L3. Reading Location: [id number]
== END | disposition home or self-care (01) ==
LOC: MRI 08:49
PROVIDERS: PCP Family Medicine Geriatric Medicine; Referring Provider Anesthesiology Pain Medicine; Visit Provider Anesthesiology Pain Medicine
DX: M54.16 Radiculopathy, lumbar region (principal)
CPT/HCPCS: 72148

== ENCOUNTER → 2025-07-17 | Outpatient (CLI) | payer MEDICARE, SELFPAY ==
[2025-07-17 09:39] LABS: Hematocrit 40.5 % (37-47); Hemoglobin 12.3 g/dL (12.0-15.0); Immature Granulocytes Count 0.010 X10^3/uL (0.0-0.0); Mean Corp Hgb Conc 30.4 g/dL (32-36); Mean Corpuscular Volume 90.4 fL (81-99); Mean Platelet Vol. 10.8 fl (6.2-12.0); NRBC Flagged by Analyzer 0 % (0-5); Platelet Count 171 K/mm3 (150-450); RBC Distribution Width CV 13.1 % (11.6-14.6); RBC Distribution Width SD 43.2 fl (35.1-43.9); Red Blood Count 4.48 M/mm3 (4.2-5.4); White Blood Count 6.0 K/mm3 (4.4-11.0)
[2025-07-17 10:24] LABS: Cholesterol 214 mg/dL (<=200); Low Density Lipoprotein Calc. 140 mg/dL; Triglycerides 118 mg/dL; Very Low Density Lipoprotein 24 mg/dL (5-40); Vitamin D,25 Hydroxy 19.1 ng/mL (30-100); cholesterol:hdl ratio screen 4.02
[2025-07-17 10:31] LABS: AST(SGOT) 22 U/L (<=31); Alanine Aminotransfer ALT/SGPT 7 U/L (<=34); Albumin, Serum 4.1 g/dL (3.4-4.8); Alkaline Phosphatase 65 U/L (35-104); Anion Gap 9 (5-15); BUN 21 mg/dL (4-19); BUN/Creat Ratio 14.5 RATIO (10-20); Calcium,Total 9.5 mg/dL (7.6-11.0); Carbon Dioxide 27.6 mmol/L (21.0-32.0); Chloride 104 mmol/L (98-108); Globulin 2.7 g/dL (2.2-4.2); Glucose 95 mg/dL (70-99); Potassium 5.2 mmol/L (3.3-5.1)
[2025-07-17 17:29] LABS: Xtra Tube Kwok EXTRA TUBE
== END | disposition home or self-care (01) ==
LOC: POLAB3 09:28
PROVIDERS: PCP Family Medicine Geriatric Medicine; Visit Provider Family Medicine Geriatric Medicine
DX: I10 Essential (primary) hypertension (principal); E55.9 Vitamin D deficiency, unspecified; N39.0 Urinary tract infection, site not specified; R63.4 Abnormal weight loss
CPT/HCPCS: 36415; 80053; 80061; 82306; 84443; 85025